=== PATIENT | male | born 1960 | race Two or more races ===

== ENCOUNTER → 2020-10-20 10:44 | Outpatient (BNVA) | payer MEDICARE, MEDICAID, SELFPAY | PROVIDERS: PCP Emergency Medicine; Visit Provider Internal Medicine | DX: I25.10 Atherosclerotic heart disease of native coronary artery without angina pectoris (principal); E11.8 Type 2 diabetes mellitus with unspecified complications; E78.5 Hyperlipidemia, unspecified | CPT/HCPCS: 93005; 99212 ==

== ENCOUNTER 2020-12-01 08:37 | Outpatient (REF) | payer MEDICARE, MEDICAID, SELFPAY ==
[2020-12-01 09:54] LABS: Glucose Urine UA NEG (NEG); Leukocyte Esterase Urine NEG (NEG); Nitrite Urine NEG (NEG); PH 5.5 (5.0-8.0); Specific Gravity - Urine >= 1.030 (1.005-1.025); Urine Blood TRACE (NEG); Urine Ketones NEG (NEG); Urine Protein NEG (NEG-TRACE)
[2020-12-01 09:56] LABS: Appearance Urine CLEAR; Color Urine YELLOW
[2020-12-01 10:08] LABS: RBC Urine 0-2 /HPF (0); WBC Urine 0-2 /HPF (0-4)
[2020-12-01 10:20] LABS: Anion Gap 12 (12-20); Blood Urea Nitrogen 16 mg/dL (9-16); Calcium 9.4 mg/dL (8.4-10.2); Carbon Dioxide 30 mmol/L (22-29); Chloride 103 mmol/L (96-108); Estimated Glomerular Filt Rate > 60; Potassium 4.4 mmol/L (3.3-5.1); Sodium 141 mmol/L (135-145)
[2020-12-01 10:45] LABS: Creatinine Urine 166.85 mg/dL; Microalbum/Creatinine Ratio Ur 26.9 ug/mg cr; Protein/Creatinine Ratio, Ur 0.07 (<0.2); Total Protein Urine Random 11 mg/dL (<12)
[2020-12-01 10:48] LABS: Vitamin D 25-OH Total 19.1 ng/mL (>30)
[2020-12-01 10:54] LABS: Estimated Average Glucose 157 mg/dL; Hemoglobin A1c % 7.1 %
[2020-12-01 18:50] LABS: Alanine Aminotransferase 73 U/L (0-40); Albumin Level 4.8 g/dL (3.5-5.0); Alkaline Phosphatase 64 U/L (39-117); Aspartate Amino Transferase 51 U/L (5-37); Bilirubin Direct 0.2 mg/dL (0.0-0.5); Bilirubin Total 0.6 mg/dL (0.0-1.0); Cholesterol 209 mg/dL; HDL Cholesterol 54 mg/dL; LDL Cholesterol Calculated 142 mg/dl; Triglycerides 69 mg/dL
[2020-12-02 18:21] LABS: Calcium (PTHI) 9.9 mg/dL (8.6-10.3); PTHI 44 pg/mL (14-64)
== END 2020-12-01 08:38 | disposition home or self-care (01) ==
LOC: HO.LAB 08:37
PROVIDERS: Absent Provider Internal Medicine Nephrology; PCP Emergency Medicine; Visit Provider Internal Medicine
DX: I25.10 Atherosclerotic heart disease of native coronary artery without angina pectoris (principal)
CPT/HCPCS: 36415; 80051; 80061; 80076; 81001; 82043; 82306; 82310; 82565; 83036; 83970; 84156; 84520

== ENCOUNTER 2021-01-06 14:28 | Emergency (ER) | payer MEDICARE, MEDICAID, SELFPAY ==
--- NOTE | ~2021-01-06 | XR_ITS ---
EXAMINATION: XR FOOT, LEFT CLINICAL INFORMATION: Plantar ulcer. Evaluate for osteomyelitis. COMPARISON: Previous x-ray December 2017 TECHNIQUE: AP, lateral, and oblique views of the left foot. FINDINGS: No fracture, dislocation or x-ray evidence of osteomyelitis is seen. There is mild hallux valgus deformity and degenerative change at the first MTP joint. There are degenerative changes of the IP joint of the of the great toe and in the midfoot. There are calcaneal spurs. There is soft tissue calcification or ossification the plantar fascia questionable for evidence of plantar fasciitis. There is soft tissue arterial calcification. No abnormal air collection or foreign body is seen in the soft tissues. XR/XR foot LT min 3V IMPRESSION: No x-ray evidence of osteomyelitis. Degenerative changes. Calcaneal spurs and question plantar fasciitis.
[2021-01-06 15:28] VITALS: BP 138/68; PULSE 88; RESP 18; TEMP 36.8; O2SAT 97; BMI 51.4
--- NOTE | 2021-01-06 16:18 | ED_ITS ---
HPI - Extremity Problem General Chief complaint: Wound/Laceration Stated complaint: lt ft wound Time Seen by Provider: 01/06/21 15:44 History of Present Illness HPI Narrative: Patient presents for noticing a small ulcer on the bottom of his left foot, just noticed it yesterday is not sure how long it has been there does not recall any injury, no fever no chills no pain, he is a diabetic Related Data Home Medications Medication Instructions Recorded Confirmed furosemide 40 mg tablet 40 mg PO DAILY tab 10/20/20 10/20/20 insulin glargine 100 unit/mL (3 unit SUBCUT 10/20/20 10/20/20 mL) subcutaneous pen isosorbide mononitrate 30 mg 30 mg PO DAILY tab 10/20/20 10/20/20 tablet,extended release 24 hr metformin 500 mg tablet,extended 1,000 mg PO BID tab 10/20/20 10/20/20 release 24 hr metoprolol succinate 50 mg 50 mg PO DAILY tab 10/20/20 10/20/20 tablet,extended release 24 hr Previous Rx's Medication Instructions Recorded atorvastatin 80 mg tablet 80 mg PO DAILY #90 tab 11/22/20 doxycycline hyclate 100 mg PO BID 7 Days #14 cap 01/06/21 doxycycline monohydrate 100 mg PO BID 7 Days #14 tab 01/06/21 Allergies Allergy/AdvReac Type Severity Reaction Status Date / Time piperacillin [From ZOSYN] Allergy Mild RASH Verified 01/06/21 15:32 tazobactam [From ZOSYN] Allergy Mild RASH Verified 01/06/21 15:32 Review of Systems Review of Systems: Positive for left wound wound negatives are no fever no chills no dizziness no weakness no headache no neck pain no chest pain or shortness of breath no joint pains PMFSH Past Medical History Source: nursing notes reviewed Medical History (Updated 01/07/21 @ 00:01 by Stacie Up) Atherosclerotic cardiovascular disease Other and unspecified hyperlipidemia Type 2 diabetes mellitus with unspecified complications Surgical History History of incision and drainage (~12/2017) Family History Family History (Updated 10/20/20 @ 11:01 by KATTY Romero) Father Liver disease Mother Heart attack Diabetes Sister Diabetes Kidney disease Social History Social History (Updated 10/20/20 @ 11:01 by KATTY Romero) Alcohol intake: former Smoking Status: Never smoker Advance Directives: No Advance Directives Information Provided: No Physical Exam Vital Signs: Vital Signs: Last Vital Signs Temp 98.2 F 01/06/21 15:28 Pulse 88 01/06/21 15:28 Resp 18 01/06/21 15:28 BP 138/68 01/06/21 15:28 Pulse Ox 97 01/06/21 15:28 Body Mass Index 51.4 General appearance no acute distress Neck is supple Respiratory no distress Extremities full range of motion x4 Skin exam on the plantar surface of the left foot there is a quarter-sized area of redness and scabbing without surrounding erythema, it is not tender to the touch there is no discharges no lymphangitis there is no surrounding cellulitis Course Course Course Narrative: X-ray did not show any gas or evidence of osteomyelitis, patient is started on antibiotic and will follow with Wound Clinic and return any time if worse Discharge Plan Discharge Clinical Impression: Foot ulcer, left Patient Disposition: Home, Self-Care Additional Instructions: We started an antibiotic for the left foot ulcer Most important is wound care so follow closely with wound clinic Return to ER any time for spreading redness, worse pain and swelling, fever, any sign of worsening infection or any concerns Prescriptions: New doxycycline hyclate 100 mg capsule 100 mg PO BID 7 Days Qty: 14 RF: 0 doxycycline monohydrate 100 mg tablet 100 mg PO BID 7 Days Qty: 14 RF: 0 No Action atorvastatin 80 mg tablet 80 mg PO DAILY Qty: 90 RF: 1 Lantus Solostar U-100 Insulin 100 unit/mL (3 mL) insulin pen subcut RF: 0 Referrals: Lilly Davalos PA [Physician Compliance Review Specialist] - 2 days Interventions: ED Discharge Assessment Last Done: 01/06/21 16:35 Discharge Date/Time: 01/06/21 16:35
== END 2021-01-06 16:35 | disposition home or self-care (01) ==
PROVIDERS: Emergency Provider Emergency Medicine; PCP Emergency Medicine
DX: L97.429 Non-pressure chronic ulcer of left heel and midfoot with unspecified severity (principal); E11.9 Type 2 diabetes mellitus without complications; Z79.4 Long term (current) use of insulin
CPT/HCPCS: 73630; 99283

== ENCOUNTER 2021-02-06 18:40 | Emergency (ER) | payer MEDICARE, MEDICAID, SELFPAY ==
--- NOTE | ~2021-02-06 | XR_ITS ---
EXAMINATION: XR FOOT, LEFT CLINICAL INFORMATION: Foot ulcer with question of osteomyelitis. COMPARISON: Foot radiographs 01/06/2021. TECHNIQUE: AP, lateral, and oblique views of the left foot. FINDINGS: Again seen are degenerative changes at interphalangeal joints, to a lesser extent, the metatarsophalangeal joints. No fractures or dislocations are seen. No bony destruction is identified to suggest osteomyelitis. Again seen are arterial calcifications and calcaneal spurs. Linear calcification is seen in the plantar fascia, unchanged when compared to the prior study. XR/XR foot LT 2V IMPRESSION: No evidence of osteomyelitis. Exam unchanged when compared to the prior study from one month ago.
[2021-02-06 19:57] VITALS: BP 145/72; PULSE 71; RESP 14; TEMP 36.2; O2SAT 97
[2021-02-06 20:09] LABS: MANUAL DIFF FLAG NO
[2021-02-06 20:10] LABS: Basophils Percent Auto 0.5 % (0-2); Eosinophils Absolute Auto 0.1 X10*3/uL (0.0-0.4); Eosinophils Percent Auto 2.6 % (0-4); Hematocrit 40.9 % (42-52); Hemoglobin 13.2 g/dl (14.0-18.0); Imm Gran Abs Auto 0.01 X10*3/uL (0.00-0.03); Imm Gran Pct Auto 0.3 % (0.0-0.4); Lymphocytes Absolute Auto 0.9 X10*3/uL (1.2-4.9); Lymphocytes Percent Auto 22.7 % (20-40); Mean Corpuscular HGB Conc 32.3 g/dl (31.0-36.0); Mean Corpuscular Hemoglobin 28.5 pg (27.0-33.0); Mean Corpuscular Volume 88.3 fL (80-98); Monocytes Absolute Auto 0.3 X10*3/uL (0.1-1.2); Monocytes Percent Auto 8.7 % (2-11); Neutrophils Absolute Auto 2.6 X10*3/uL (2.0-8.3); Neutrophils Percent Auto 65.2 % (45-73); Platelet Count 175 X10*3/uL (160-400); Red Blood Count 4.63 X10*6/uL (4.60-5.80); Red Cell Distribution Width 12.1 % (11.0-16.0); White Blood Count 3.9 X10*3/uL (4.8-10.8)
[2021-02-06 20:22] VITALS: BP 144/75; PULSE 61; RESP 16; TEMP 36.3; O2SAT 97; BMI 23.6
[2021-02-06 20:34] LABS: Alanine Aminotransferase 18 U/L (0-40); Albumin Level 4.5 g/dL (3.5-5.0); Alkaline Phosphatase 69 U/L (39-117); Anion Gap 12 (12-20); Aspartate Amino Transferase 20 U/L (5-37); Bilirubin Total 0.7 mg/dL (0.0-1.0); Blood Urea Nitrogen 18 mg/dL (9-16); Calcium 9.9 mg/dL (8.4-10.2); Carbon Dioxide 28 mmol/L (22-29); Chloride 103 mmol/L (96-108); Creatinine Clr Calc Pharmacy 67.3; Estimated Glomerular Filt Rate 57; Glucose Random 212 mg/dL (60-115); Potassium 4.7 mmol/L (3.3-5.1); Sodium 138 mmol/L (135-145); Total Protein 7.7 g/dL (6.5-8.0)
--- NOTE | 2021-02-06 21:53 | ED_ITS ---
HPI - Skin/Abscess/Foreign Bdy General Chief complaint: Skin/Abscess/Foreign Body Stated complaint: ulcer Time Seen by Provider: 02/06/21 21:24 Source: patient and retail account executive Mode of arrival: ambulatory History of Present Illness HPI narrative: This is a 60-year-old male with history of diabetes in presents with 2 days after noticing an ulcer at the base of his left great toe without associated fevers, chills, shortness of breath, chest pain/palpitations, GI or symptoms. Patient has had previous problem at the same site on his right foot approximately 2 months ago. Related Data Allergies Allergy/AdvReac Type Severity Reaction Status Date / Time No Known Allergies Allergy Verified 02/06/21 21:56 Review of Systems Review of Systems: Pertinent positives and negatives as stated in HPI 10 point review of systems is otherwise negative. PMFSH Past Medical History Source: nursing notes reviewed Medical History Diabetes High cholesterol HTN (hypertension) Social History Social History Advance Directives: No Advance Directives Information Provided: No Physical Exam Vital Signs: Vital Signs: Last Vital Signs Temp 97.4 F 02/06/21 20:22 Pulse 61 02/06/21 20:22 Resp 16 02/06/21 20:22 BP 144/75 H 02/06/21 20:22 Pulse Ox 97 02/06/21 20:22 Body Mass Index 23.6 VITAL SIGNS: Reviewed. GENERAL: Well developed, well nourished, in no acute distress. HEAD: Normocephalic/atraumatic EYES: PERRLA, EOMI OROPHARYNX: no oral lesions noted, posterior pharynx clear NECK: Supple, no adenopathy LUNGS: Normal breath sounds. No adventitious sounds or accessory muscle use. SpO2<97> CARDIOVASCULAR: Regular rate and rhythm without noted murmurs ABDOMEN: Soft, non-tender, non-distended with bowel sounds. LEFT FOOT: ulcer noted at the left MTP without surrounding erythema/induration and no evidence of discharge NEUROLOGIC: Alert and oriented x 4. Course Course Course Narrative: 60-year-old male with history and clinical presentation consistent with mal perforans ulcer at the left MTP. Review of all investigations negative for acute findings from baseline all results discussed with patient at bedside and he was provided with a wound clinic referral and instructed to call 1st thing in the morning. MDM - Skin/Abscess/Foreign Bdy Lab Data Result diagrams: 02/06/21 20:04 02/06/21 20:04 Labs: Lab Results 02/06/21 02/06/21 02/06/21 Range/Units 20:04 20:04 20:04 WBC 3.9 L (4.8-10.8) X10*3/uL RBC 4.63 (4.60-5.80) X10*6/uL Hgb 13.2 L (14.0-18.0) g/dl Hct 40.9 L (42-52) % MCV 88.3 (80-98) fL MCH 28.5 (27.0-33.0) pg MCHC 32.3 (31.0-36.0) g/dl RDW 12.1 (11.0-16.0) % Plt Count 175 (160-400) X10*3/uL MPV 10.0 (9.4-12.4) fL Immature Gran % (Auto) 0.3 (0.0-0.4) % Neut % (Auto) 65.2 (45-73) % Lymph % (Auto) 22.7 (20-40) % [place] % (Auto) 8.7 (2-11) % Eos % (Auto) 2.6 (0-4) % Baso % (Auto) 0.5 (0-2) % Lymph # (Auto) 0.9 L (1.2-4.9) X10*3/uL [place] # (Auto) 0.3 (0.1-1.2) X10*3/uL Eos # (Auto) 0.1 (0.0-0.4) X10*3/uL Baso # (Auto) 0.0 (0.0-0.2) X10*3/uL Abs Immat Gran (auto) 0.01 (0.00-0.03) X10*3/uL Absolute Neuts (auto) 2.6 (2.0-8.3) X10*3/uL Absolute Nucleated RBC 0.000 (0.0-0.012) X10*3/uL Nucleated RBC % (auto) 0.0 (0.0-0.2) /100WBC Hold Purple Top SEE NOTE Sodium 138 (135-145) mmol/L Potassium 4.7 (3.3-5.1) mmol/L Chloride 103 (96-108) mmol/L Carbon Dioxide 28 (22-29) mmol/L Anion Gap 12 (12-20) BUN 18 H (9-16) mg/dL Creatinine 1.28 (0.5-1.4) mg/dL Estim Creat Clear Calc 67.3 Estimated GFR 57 Random Glucose 212 H (60-115) mg/dL Calcium 9.9 (8.4-10.2) mg/dL Total Bilirubin 0.7 (0.0-1.0) mg/dL AST 20 (5-37) U/L ALT 18 (0-40) U/L Alkaline Phosphatase 69 (39-117) U/L Total Protein 7.7 (6.5-8.0) g/dL Albumin 4.5 (3.5-5.0) g/dL Discharge Plan Discharge Clinical Impression: Diabetic foot ulcer Patient Disposition: Home, Self-Care Instructions: Foot Care for People with Diabetes (ED), Diabetic Foot Ulcers (ED) Additional Instructions: 1. Reanude todos los medicamentos caseros seg?n lo prescrito. 2. Etta un seguimiento con mccain proveedor de atenci?n primaria llamando al consultorio por la ma?ted y estableciendo christopher cecy para christopher reevaluaci?n. 3. Se le garcia proporcionado christopher derivaci?n a la cl?viola de heridas y debe llamarlos por la ma?ted. Regrese a la vivian de emergencias por un empeoramiento roberto de los s?ntomas. Referrals: Wound Care [facility] [Outside] - 2 days (Please evaluate and manage diabetic foot ulcer to the left MTP (mal perforan) with x-ray negative for evidence of OM.) [facility] [Primary Care Provider] - 2 days Print Language: Japanese
== END 2021-02-06 23:12 | disposition home or self-care (01) ==
PROVIDERS: Emergency Provider Student in an Organized Health Care Education/Training Program
DX: E11.621 Type 2 diabetes mellitus with foot ulcer (principal); L97.529 Non-pressure chronic ulcer of other part of left foot with unspecified severity; I10 Essential (primary) hypertension
CPT/HCPCS: 36415; 73620; 80053; 85025; 99283

== ENCOUNTER 2021-02-10 08:43 | Outpatient (RCR) | payer MEDICARE, MEDICAID, SELFPAY | END 2021-03-02 08:00 | disposition home or self-care (01) | LOC: HO.WCC 08:43 | PROVIDERS: Visit Provider Physician Assistant | DX: E11.621 Type 2 diabetes mellitus with foot ulcer (principal); L97.529 Non-pressure chronic ulcer of other part of left foot with unspecified severity; L84 Corns and callosities; I87.2 Venous insufficiency (chronic) (peripheral); E11.40 Type 2 diabetes mellitus with diabetic neuropathy, unspecified; I10 Essential (primary) hypertension; Z79.2 Long term (current) use of antibiotics | CPT/HCPCS: 99212 ==

== ENCOUNTER 2021-04-10 10:30 | Outpatient (REF) | payer MEDICARE, MEDICAID, SELFPAY ==
[2021-04-10 11:15] LABS: Alanine Aminotransferase 16 U/L (0-40); Albumin Level 4.6 g/dL (3.5-5.0); Alkaline Phosphatase 57 U/L (39-117); Aspartate Amino Transferase 21 U/L (5-37); Bilirubin Direct 0.2 mg/dL (0.0-0.5); Bilirubin Total 0.3 mg/dL (0.0-1.0); Total Protein 7.8 g/dL (6.5-8.0)
== END 2021-04-10 10:31 | disposition home or self-care (01) ==
LOC: HO.LAB 10:30
PROVIDERS: Visit Provider Internal Medicine
DX: I25.10 Atherosclerotic heart disease of native coronary artery without angina pectoris (principal)
CPT/HCPCS: 36415; 80076

== ENCOUNTER 2021-09-22 10:00 | Outpatient (RCR) | payer MEDICARE, MEDICAID, SELFPAY ==
[2021-09-19 15:16] LABS: MANUAL DIFF FLAG NO
[2021-09-19 15:37] LABS: Basophils Percent Auto 0.4 % (0-2); Eosinophils Absolute Auto 0.1 X10*3/uL (0.0-0.4); Eosinophils Percent Auto 2.2 % (0-4); Hematocrit 43.1 % (42.0-52.0); Imm Gran Abs Auto 0.02 X10*3/uL (0.00-0.03); Imm Gran Pct Auto 0.4 % (0.0-0.4); Lymphocytes Absolute Auto 0.9 X10*3/uL (1.2-4.9); Lymphocytes Percent Auto 20.3 % (20-40); Mean Corpuscular HGB Conc 32.5 g/dl (31.0-36.0); Mean Corpuscular Hemoglobin 28.4 pg (27.0-33.0); Mean Corpuscular Volume 87.4 fL (80.0-98.0); Mean Platelet Volume 9.7 fL (9.4-12.4); Monocytes Absolute Auto 0.3 X10*3/uL (0.1-1.2); Monocytes Percent Auto 7.4 % (2-11); Neutrophils Absolute Auto 3.1 x10*3/uL (2.0-8.3); Neutrophils Percent Auto 69.3 % (45-73); Platelet Count 208 X10*3/uL (160-400); Red Blood Count 4.93 X10*6/uL (4.60-5.80); Red Cell Distribution Width 11.7 % (11.0-16.0); White Blood Count 4.5 X10*3/uL (4.8-10.8)
[2021-09-19 15:50] LABS: Estimated Average Glucose 217 mg/dL; Hemoglobin A1c % 9.2 %
[2021-09-19 16:06] LABS: Anion Gap 11 (12-20); Blood Urea Nitrogen 20 mg/dL (9-16); C Reactive Protein 0.05 mg/dL (< or = 0.50); Calcium 10.7 mg/dL (8.4-10.2); Carbon Dioxide 32 mmol/L (22-29); Chloride 102 mmol/L (96-108); Estimated Glomerular Filt Rate 50; Glucose Random 225 mg/dL (60-115); Potassium 4.5 mmol/L (3.3-5.1); Sodium 140 mmol/L (135-145)
[2021-09-19 16:43] LABS: Erythrocyte Sedimentation Rate 10 MM/HR (0-15)
--- NOTE | ~2021-09-22 | XR_ITS ---
EXAMINATION: XR FOOT, LEFT CLINICAL INFORMATION: Wound of the first metatarsal head COMPARISON: 02/06/2021 TECHNIQUE: 3 views of the left foot. FINDINGS: No interval development of osseous erosion or periostitis. No radiographic findings of osteomyelitis. Again noted are enthesophytes of the calcaneus and small osteophytes at scattered joints of the foot. Peripheral vessels are calcified. XR/XR foot LT min 3V IMPRESSION: No acute abnormality in the left foot compared to 02/06/2021. No evidence of osteomyelitis.
== END 2021-10-04 15:05 | disposition home or self-care (01) ==
LOC: HO.WCC 10:00
PROVIDERS: PCP Internal Medicine; Visit Provider Physician Assistant
DX: E11.621 Type 2 diabetes mellitus with foot ulcer (principal); L97.521 Non-pressure chronic ulcer of other part of left foot limited to breakdown of skin; E11.40 Type 2 diabetes mellitus with diabetic neuropathy, unspecified; I10 Essential (primary) hypertension
CPT/HCPCS: 36415; 73630; 80048; 83036; 84134; 85025; 85652; 86140; 97597; 99212

== ENCOUNTER → 2022-01-31 08:45 | Outpatient (BNVA) | payer MEDICARE, MEDICAID, SELFPAY | PROVIDERS: PCP Nurse Practitioner Family; Referring Provider Nurse Practitioner Family; Visit Provider Internal Medicine | DX: I25.10 Atherosclerotic heart disease of native coronary artery without angina pectoris (principal); E11.8 Type 2 diabetes mellitus with unspecified complications; E78.5 Hyperlipidemia, unspecified; Z79.84 Long term (current) use of oral hypoglycemic drugs; Z79.4 Long term (current) use of insulin | CPT/HCPCS: 93005; 99212 ==

== ENCOUNTER 2022-03-31 15:17 | Inpatient (IN) | payer MEDICARE, MEDICAID, SELFPAY ==
--- NOTE | ~2022-03-31 | US_ITS ---
EXAMINATION: US arterial duplex LE RT CLINICAL INFORMATION: Reason for Exam pt c right leg swelling/redness ? dvt or arterial COMPARISON: None. TECHNIQUE: Dynamic, real-time grayscale and color Doppler sonographic evaluation of the right lower extremity was performed with spectral analysis FINDINGS: RIGHT (PSV/Waveform): CAMP MAINTENANCE SUPERVISOR: 117 cm/s, triphasic * PFA: 162 cm/s, biphasic. * Proximal SFA: 120 cm/s, triphasic. * Mid SFA: 112 cm/s, triphasic. * Distal SFA: 116cm/s, triphasic * Popliteal: 105 cm/s, triphasic * OUTBOARD MOTOR ASSEMBLER: 61cm/s, triphasic * US/US arterial duplex LE RT IMPRESSION: No hemodynamically significant stenosis within the right lower extremity arterial vasculature.
--- NOTE | ~2022-03-31 | US_ITS ---
EXAMINATION: US VENOUS ULTRASOUND WITH DOPPLER LOWER EXTREMITY, RIGHT CLINICAL INFORMATION: Swelling COMPARISON: None TECHNIQUE: Ultrasound of the deep veins is performed from the hip to the calf with compression sonography and color and pulse Doppler assessment. Spectral analysis with color-flow imaging is performed. FINDINGS: There is normal venous compression and respiratory variation and augmented flow. The visualized common femoral vein, superficial femoral vein, profunda femoral vein, popliteal vein, and the trifurcation region shows no evidence of deep venous thrombosis. There is no significant popliteal fossa cyst. If the patient's symptoms persist, followup ultrasound in 5 days 7 days might be of value to exclude proximal propagation from a non-visualized calf vein. US/US venous duplex LE RT IMPRESSION: No DVT demonstrated in the right lower extremity.
--- NOTE | ~2022-03-31 | XR_ITS ---
EXAMINATION: XR FOOT, RIGHT CLINICAL INFORMATION: Right great toe pain and swelling. Question abscess or osteomyelitis COMPARISON: Right foot radiographs 04/25/2020 TECHNIQUE: AP, lateral, and oblique views of the right foot. FINDINGS: Suspected mild interval erosive change at the tip/tuft of the great toe distal phalanx. Overlying masslike soft tissue swelling and a small bubble of soft tissue gas. No additional osseous destructive change. Mild degenerative changes at the great toe IP joint and first MTP joints with mild joint space narrowing small osteophytes noted. Calcaneal spurs and vascular calcifications also seen. XR/XR foot RT min 3V IMPRESSION: 1. Mild interval erosive change of the tuft of the great toe distal phalanx suspicious for small volume acute osteomyelitis. 2. Masslike soft tissue swelling overlying the distal great toe with a small bubble of soft tissue gas. Cannot exclude abscess. Consider forefoot MRI for assessment.
--- NOTE | 2022-03-31 15:33 | PC.NURSE ---
unable to get fitness sales consultant via phone, will continue to try and get ahold of them.
[2022-03-31 15:53] VITALS: BP 150/73; PULSE 97; RESP 16; TEMP 36.7; O2SAT 97; BMI 23.3
[2022-03-31 19:32] LABS: MANUAL DIFF FLAG NO
[2022-03-31 19:34] LABS: Basophils Percent Auto 0.2 % (0-2); Eosinophils Absolute Auto 0.1 X10*3/uL (0.0-0.4); Eosinophils Percent Auto 1.9 % (0-4); Hemoglobin 13.9 g/dl (14.0-18.0); Imm Gran Abs Auto 0.02 X10*3/uL (0.00-0.03); Imm Gran Pct Auto 0.3 % (0.0-0.4); Lymphocytes Absolute Auto 0.9 X10*3/uL (1.2-4.9); Lymphocytes Percent Auto 16.1 % (20-40); Mean Corpuscular HGB Conc 32.3 g/dl (31.0-36.0); Mean Corpuscular Volume 86.5 fL (80.0-98.0); Mean Platelet Volume 9.5 fL (9.4-12.4); Monocytes Absolute Auto 0.5 X10*3/uL (0.1-1.2); Monocytes Percent Auto 8.8 % (2-11); Neutrophils Absolute Auto 4.2 x10*3/uL (2.0-8.3); Neutrophils Percent Auto 72.7 % (45-73); Platelet Count 207 X10*3/uL (160-400); Red Blood Count 4.97 X10*6/uL (4.60-5.80); Red Cell Distribution Width 12.1 % (11.0-16.0); White Blood Count 5.8 X10*3/uL (4.8-10.8)
[2022-03-31 19:39] LABS: INTERNATIONAL NORM RATIO 1.1 (0.9-1.1); Prothrombin Time 12.6 SEC (10.0-13.1)
--- NOTE | 2022-03-31 19:43 | ED_ITS ---
HPI - Skin/Abscess/Foreign Bdy General Chief complaint: General Medical Stated complaint: Cyst on toe Time Seen by Provider: 03/31/22 17:23 Source: patient Mode of arrival: ambulatory Limitations: language barrier (Senegalese-speaking) History of Present Illness HPI narrative: 61-year-old male presenting to the ED with complaints of possible abscess to his right great toe that he noticed since last night. Patient has a past medical history of coronary artery disease, hypertension, hyperlipidemia, diabetes type 2. Patient reports on March 16 he was seen at [facility] and was diagnosed with a great toe ingrown nail infection was placed on Keflex reports his symptoms completely resolved although since last night he has been having worsening pain/swelling and redness to his right great toe that is now spreading into his foot. Denies any fevers, chills, dizziness, headaches, neck pain/stiffness, trouble swallowing or breathing, chest pain or shortness of breath, dyspnea on exertion, orthopnea, palpitation, paresthesias, nausea/vomiting/diarrhea constipation, black or bloody stools, abdominal pain, back pain, dysuria, hematuria, recent falls or trauma, recent injuries to the foot or toes that he is aware of, paresthesias, lower extremity edema or calf tenderness or any other symptoms complaints or concerns at this time. MD complaint: abscess/boil Onset (ago): day(s) (2) Location: R foot (Great toe) Severity: moderate Quality: aching Pain Consistency: constant Relieving factors: none Exacerbating factors: palpation, movement and other (walking) Context: other (See above) Associated symptoms: denies other symptoms Treatments prior to arrival: other (See above) Related Data Home Medications Medication Instructions Recorded Confirmed furosemide 40 mg tablet 40 mg PO DAILY 10/20/20 03/22/22 insulin glargine 100 unit/mL (3 100 unit subcut DAILY 10/20/20 03/22/22 mL) subcutaneous pen (Lantus Solostar U-100 Insulin) metformin 500 mg tablet,extended 1,000 mg PO BID 10/20/20 03/22/22 release 24 hr metoprolol succinate 50 mg 50 mg PO DAILY 10/20/20 03/22/22 tablet,extended release 24 hr cholecalciferol (vitamin D3) 50 1 cap PO QAM 12/20/21 03/22/22 mcg (2,000 unit) capsule aspirin 81 mg tablet,delayed 81 mg PO QAM 01/31/22 03/22/22 release empagliflozin 25 mg tablet 25 mg PO DAILY 01/31/22 03/22/22 (Jardiance) Previous Rx's Medication Instructions Recorded ezetimibe 10 mg tablet (Zetia) 10 mg PO DAILY 90 days #90 tabs 04/11/21 isosorbide mononitrate 30 mg 30 mg PO DAILY 90 days #90 tabs 12/25/21 tablet,extended release 24 hr atorvastatin 80 mg tablet 80 mg PO DAILY #90 tabs 03/19/22 Allergies Allergy/AdvReac Type Severity Reaction Status Date / Time piperacillin [From ZOSYN] Allergy Mild RASH Verified 03/31/22 15:53 tazobactam [From ZOSYN] Allergy Mild RASH Verified 03/31/22 15:53 Review of Systems Review of Systems: Constitutional : No Weight loss, No Fever, No Chills, No Night Sweats, No Fatigue, No Malaise ENT/Mouth : No Hearing loss, No Ear Pain, No Nasal Congestion, No Sinus Pain, No Hoarseness, No sore throat, No Rhinorrhea, No Swallowing Difficulty Eyes: No Eye Pain, No Swelling, No Redness, No Foreign Body, No Discharge, No Vision Changes Cardiovascular : No Chest Pain, No SOB, No Dyspnea on Exertion, No Orthopnea, No Edema, No Palpitations Respiratory : No Cough, No Sputum, No Wheezing, No Smoke Exposure, No Dyspnea Gastrointestinal : No Nausea, No Vomiting, No Diarrhea, No Constipation, No abdominal Pain, No Hematochezia, No Melena Genitourinary : no irregular bleeding, No Dysuria, No Urinary Frequency, No Hematuria, No Urinary Incontinence, No Urgency, No Flank Pain, No Urinary Flow Changes, No Hesitancy Musculoskeletal : No joint pain, No Myalgias, No Joint Swelling Skin : + abscess/erythema/pain to right great toe, No additional Skin Lesions, No rash Neuro : No Weakness, No Numbness, No Paresthesias, No Loss of Consciousness, No Dizziness, No Headache Psych : No Anxiety/Panic, No Depression, No SI/HI/AH/VH, No Social Issues, Heme/Lymph: No Bruising, No Bleeding,No Lymphadenopathy Endocrine : No Polyuria, No Polydipsia, No Temperature Intolerance Yes all other systems are reviewed and are negative [facility] Past Medical History Attestation statement: The following information was validated with the patient. Source: old records reviewed and nursing notes reviewed Medical History Atherosclerotic cardiovascular disease Diabetes High cholesterol HTN (hypertension) Other and unspecified hyperlipidemia Type 2 diabetes mellitus with unspecified complications Surgical History History of incision and drainage (~12/2017) Family History Family History Father Liver disease Mother Diabetes Heart attack Sister Diabetes Kidney disease Stomach cancer Social History Social History Household Members: None Housing: Apartment Are you a primary patient care secretary to a significant other at home: No Do you presently have visiting nurse or other home services: No Alcohol intake: former Patient Tobacco Use Status: Never used Tobacco Advance Directives: No Advance Directives Information Provided: No service: No Current occupational status: disabled Physical Exam Vital Signs: Vital Signs: Last Vital Signs Temp 98.0 F 03/31/22 15:53 Pulse 97 03/31/22 15:53 Resp 16 03/31/22 15:53 BP 150/73 H 03/31/22 15:53 Pulse Ox 97 03/31/22 15:53 O2 Del Method 03/31/22 15:53 BMI result Body Mass Index 23.3 vital signs have been reviewed as normal and appeared to be correct. Blood pressure normal. Heart rate normal. Respiration rate normal. Temperature normal. Oxygen saturation normal. Appearance: Alert. Oriented X3. No acute distress. Head: Normal external exam. Normocephalic. Atraumatic. Eyes: PERRLA. EOMI. Conjunctiva and sclera normal. Eyelids normal. ENT: Pharynx normal. Uvula midline. Moist mucous membranes. No lesions/ulcerations or masses noted on the tongue. Normal voice. No trismus noted. No drooling noted. No muffled voice noted. Neck: Normal inspection. Neck supple. FROM. No adenopathy. Thyroid Normal. No tracheal deviation noted. No crepitus is noted. No meningeal signs. CVS: Normal heart rate and rhythm. Heart sound normal. Pulses normal throughout. No murmurs/rales/gallops. Respiratory: No respiratory distress. Painless inspiration. Breath sounds normal. No wheezes/rales/rhonchi noted. Chest nontender. No crepitus is noted. No signs of trauma noted. No accessory muscle usage noted or decreased air movement noted. No signs of trauma. Abdomen: Soft and nontender. Bowel sounds normal in all 4 quadrants. No distention noted. No organomegaly noted. No visible injury noted. Back: Full range of motion noted. Skin: Skin warm and dry. Normal skin color. Normal skin turgor. Patient with erythema and moderate soft tissue swelling and warm to touch questioning some fluctuance to the right great toenail at the dorsal aspect spreading erythema/cellulitis to the dorsal aspect of the midfoot otherwise no streaking up the leg. No foreign bodies or drainage at this time. No additional rashes/lesions/lacerations noted. Extremities: No lower extremity edema. No calf tenderness is noted. Otherwise all other Extremities exhibit normal range of motion and nontender other than the right great toe/right foot. Neuro: Oriented X 3. No motor deficit. No sensory deficit. Reflexes normal. Normal steady gait. No focal neuro deficits noted. CN's II-XII intact bi laterally? Vascular: + radial pulses/+ 2 distal pedal pulses/+2 dorsalis pedis b/l. Normal cap refill. No cyanosis noted to upper extremity nails and lower extremity toes nails. Course Course Course Narrative: 17:45pm - 61-year-old male presenting to the ED with complaints of possible abscess to his right great toe that he noticed since last night. Patient reports on March 16 he was seen at [facility] and was diagnosed with a great toe ingrown nail infection was placed on Keflex reports his symptoms completely resolved although since last night he has been having worsening pain/swelling and redness to his right great toe that is now spreading into his foot. Patient has a past medical history of coronary artery disease, hypertension, hyperlipidemia, diabetes type 2. Plan: Will obtain an x-ray of right foot Trista venous duplex ultrasound of right lower extremity an arterial duplex ultrasound of right lower extremity and re- evaluate. Reevaluation(s) Reevaluation #1: - X-ray revealed mild interval erosive changes of the tuft of the great toe distal phalanx suspicious for small Volume acute osteomyelitis and noted to have small bubble of soft tissue gas cannot exclude abscess they recommended forefoot MRI for assessment. - therefore at this time infection is suspected and will obtain labs, blood cultures, lactic acid patient is allergic to Zosyn will provide 2 g of Rocephin and vancomycin along with IV fluids and re-evaluate. Patient will need to be admitted for osteomyelitis to Dr. Hernandez at this time. Patient understands agrees with this plan. Time: 19:00 MDM - Skin/Abscess/Foreign Bdy Medical Records Attestation: I reviewed the patient's medical records. Lab Data Attestation: I reviewed the patient's lab results. Result diagrams: 03/31/22 19:13 03/31/22 19:13 Labs: Lab Results 03/31/22 03/31/22 03/31/22 Range/Units 19:13 19:13 19:13 WBC 5.8 (4.8-10.8) X10*3/uL RBC 4.97 (4.60-5.80) X10*6/uL Hgb 13.9 L (14.0-18.0) g/dl Hct 43.0 (42.0-52.0) % MCV 86.5 (80.0-98.0) fL MCH 28.0 (27.0-33.0) pg MCHC 32.3 (31.0-36.0) g/dl RDW 12.1 (11.0-16.0) % Plt Count 207 (160-400) X10*3/uL MPV 9.5 (9.4-12.4) fL Immature Gran % (Auto) 0.3 (0.0-0.4) % Neut % (Auto) 72.7 (45-73) % Lymph % (Auto) 16.1 L (20-40) % [place] % (Auto) 8.8 (2-11) % Eos % (Auto) 1.9 (0-4) % Baso % (Auto) 0.2 (0-2) % Lymph # (Auto) 0.9 L (1.2-4.9) X10*3/uL [place] # (Auto) 0.5 (0.1-1.2) X10*3/uL Eos # (Auto) 0.1 (0.0-0.4) X10*3/uL Baso # (Auto) 0.0 (0.0-0.2) X10*3/uL Abs Immat Gran (auto) 0.02 (0.00-0.03) X10*3/uL Absolute Neuts (auto) 4.2 (2.0-8.3) x10*3/uL Absolute Nucleated RBC 0.000 (0.0-0.012) X10*3/uL Nucleated RBC % (auto) 0.0 (0.0-0.2) /100WBC PT 12.6 (10.0-13.1) SEC INR 1.1 (0.9-1.1) Sodium 141 (135-145) mmol/L Potassium 4.9 (3.3-5.1) mmol/L Chloride 102 (96-108) mmol/L Carbon Dioxide 26 (22-29) mmol/L Anion Gap 18 (12-20) BUN 17 H (9-16) mg/dL Creatinine 0.98 (0.5-1.4) mg/dL Estim Creat Clear Calc 86.8 Estimated GFR > 60 Random Glucose 101 D (60-115) mg/dL Lactic Acid (0.5-2.0) mmol/L Calcium 9.7 (8.4-10.2) mg/dL Magnesium 2.2 (1.6-2.6) mg/dL Total Bilirubin 0.4 (0.0-1.0) mg/dL AST 28 (5-37) U/L ALT 27 (0-40) U/L Alkaline Phosphatase 69 (39-117) U/L Total Protein 8.7 H (6.5-8.0) g/dL Albumin 4.7 (3.5-5.0) g/dL 03/31/22 Range/Units 19:13 WBC (4.8-10.8) X10*3/uL RBC (4.60-5.80) X10*6/uL Hgb (14.0-18.0) g/dl Hct (42.0-52.0) % MCV (80.0-98.0) fL MCH (27.0-33.0) pg MCHC (31.0-36.0) g/dl RDW (11.0-16.0) % Plt Count (160-400) X10*3/uL MPV (9.4-12.4) fL Immature Gran % (Auto) (0.0-0.4) % Neut % (Auto) (45-73) % Lymph % (Auto) (20-40) % [place] % (Auto) (2-11) % Eos % (Auto) (0-4) % Baso % (Auto) (0-2) % Lymph # (Auto) (1.2-4.9) X10*3/uL [place] # (Auto) (0.1-1.2) X10*3/uL Eos # (Auto) (0.0-0.4) X10*3/uL Baso # (Auto) (0.0-0.2) X10*3/uL Abs Immat Gran (auto) (0.00-0.03) X10*3/uL Absolute Neuts (auto) (2.0-8.3) x10*3/uL Absolute Nucleated RBC (0.0-0.012) X10*3/uL Nucleated RBC % (auto) (0.0-0.2) /100WBC PT (10.0-13.1) SEC INR (0.9-1.1) Sodium (135-145) mmol/L Potassium (3.3-5.1) mmol/L Chloride (96-108) mmol/L Carbon Dioxide (22-29) mmol/L Anion Gap (12-20) BUN (9-16) mg/dL Creatinine (0.5-1.4) mg/dL Estim Creat Clear Calc Estimated GFR Random Glucose (60-115) mg/dL Lactic Acid 0.8 (0.5-2.0) mmol/L Calcium (8.4-10.2) mg/dL Magnesium (1.6-2.6) mg/dL Total Bilirubin (0.0-1.0) mg/dL AST (5-37) U/L ALT (0-40) U/L Alkaline Phosphatase (39-117) U/L Total Protein (6.5-8.0) g/dL Albumin (3.5-5.0) g/dL Imaging Data right foot xray: Attestation: I personally reviewed and interpreted this imaging study as follows: Radiologist's impression: FINDINGS: Suspected mild interval erosive change at the tip/tuft of the great toe distal phalanx. Overlying masslike soft tissue swelling and a small bubble of soft tissue gas. No additional osseous destructive change. Mild degenerative changes at the great toe IP joint and first MTP joints with mild joint space narrowing small osteophytes noted. Calcaneal spurs and vascular calcifications also seen.? XR/XR foot RT min 3V IMPRESSION: ? 1. Mild interval erosive change of the tuft of the great toe distal phalanx suspicious for small volume acute osteomyelitis. 2. Masslike soft tissue swelling overlying the distal great toe with a small bubble of soft tissue gas. Cannot exclude abscess. Consider forefoot MRI for assessment. Critical Care Time Critical Care Time Critical Care Time: Yes Total Critical Care Time: 60 Attestation: I personally attest to this time spent taking care of the patient Discharge Plan Discharge Clinical Impression: Osteomyelitis of great toe of right foot Patient Disposition: Admitted As Inpatient
[2022-03-31 19:44] LABS: Lactic Acid 0.8 mmol/L (0.5-2.0)
[2022-03-31 19:49] LABS: Alanine Aminotransferase 27 U/L (0-40); Albumin Level 4.7 g/dL (3.5-5.0); Alkaline Phosphatase 69 U/L (39-117); Anion Gap 18 (12-20); Aspartate Amino Transferase 28 U/L (5-37); Bilirubin Total 0.4 mg/dL (0.0-1.0); Blood Urea Nitrogen 17 mg/dL (9-16); Calcium 9.7 mg/dL (8.4-10.2); Carbon Dioxide 26 mmol/L (22-29); Chloride 102 mmol/L (96-108); Creatinine Clr Calc Pharmacy 86.8; Estimated Glomerular Filt Rate > 60; Glucose Random 101 mg/dL (60-115); Magnesium 2.2 mg/dL (1.6-2.6); Potassium 4.9 mmol/L (3.3-5.1); Sodium 141 mmol/L (135-145); Total Protein 8.7 g/dL (6.5-8.0)
[2022-03-31] MEDS: cefTRIAXone sodium 2 GM in 0.9 % Sodium Chloride 50 ML IV (20:39)
[2022-03-31] MEDS: 0.9 % Sodium Chloride 1,000 ML 999 ML IVCONT (20:40)
--- NOTE | 2022-03-31 20:46 | P.HPHOSP_ITS ---
History of Present Illness Date of Service: 03/31/22 Chief Complaint: swollen toe Greenlandic-speaking only, history is obtained with the help of pedigree researcher 61-year-old male with past medical history of diabetes, hypertension, HLD presents the hospital with complaints of bright swollen big toe. Patient reports that he developed significant swelling, been a prior and he felt that his toe became like a balloon and squishy . Patient reports that he felt febrile, had chills, reports has chronic neuropathy therefore felt no pain, but he notice some warmth and mild erythema. Patient reports that on the 16 of March, he went to his primary care doctor, at that time his right big toe had also been slightly swollen, warm and had some drainage, therefore his PCP gave him a 7 day course of antibiotic cephalexin, with significant improvement. He he felt that this infection has gone away. He denies any chest pain, no shortness of breath, no headache or change in vision, no abdominal pain nausea or vomiting, no diarrhea or constipation, no urinary symptoms and no lower extremity edema On arrival to the ED patient hemodynamically stable with no significant abnormal vitals Labs are significant for WBC count of 5.8, hemoglobin of 13.9, hematocrit of 43 ESR of 34, CRP of 5.99, Foot x-ray shows mild interval erosive change of the tuft of the great toe distal phalanx suspicious for acute osteomyelitis, masslike soft tissue swelling overlying the distal great toe with a small bubble of soft tissue gas, cannot exclude abscess Patient started on IV antibiotics will be admitted for further management Review of Systems Review of Systems: Yes all other systems are reviewed and are negative [facility] Medical History Atherosclerotic cardiovascular disease Diabetes High cholesterol HTN (hypertension) Other and unspecified hyperlipidemia Type 2 diabetes mellitus with unspecified complications Family History Father Liver disease Mother Diabetes Heart attack Sister Diabetes Kidney disease Stomach cancer Surgical History History of incision and drainage (~12/2017) Social History Household Members: None Housing: Apartment Are you a primary health care marketing specialist to a significant other at home: No Do you presently have visiting nurse or other home services: No Alcohol intake: former Patient Tobacco Use Status: Never used Tobacco Use of substances other than those prescribed or required for medical reasons: No Have you been hit, kicked, punched, or otherwise hurt by someone within the past year? If so, by whom?: No Do you feel safe in your current relationship?: No Current Relationship Is there a partner from a previous relationship who is making you feel unsafe now?: No Are you made to feel afraid or neglected: No Advance Directives: No Advance Directives Information Provided: No Do you have thoughts of harming others: None Do you have a plan to hurt others: No Plan Recently lost weight without trying: No Eating poorly because of decreased appetite: No Nutrition Risks: No Nutritional Risk service: No Current occupational status: disabled Meds Allergies Allergy/AdvReac Type Severity Reaction Status Date / Time piperacillin [From ZOSYN] Allergy Mild RASH Verified 03/31/22 15:53 tazobactam [From ZOSYN] Allergy Mild RASH Verified 03/31/22 15:53 vancomycin Allergy Itching Verified 03/31/22 21:58 Active Medications: Current Medications Acetaminophen (Acetaminophen 325 Mg Tablet) 650 mg PO Q6H PRN PRN Reason: Pain, Mild (Pain Scale 1-3) Enoxaparin Sodium (Enoxaparin Sodium 40 Mg/0.4 Ml Syringe) 40 mg SUBCUT Q24H [facility] [place] [place] Vancomycin HCl () 2,000 mg in 520 mls @ 260 mls/hr IV ONCE ONE Stop: 03/31/22 21:19 Vancomycin HCl 1,500 mg/ (Sodium Chloride) 500 mls @ 333.333 mls/hr IV Q12H [facility] [place] Pharmacy Consult (Consult Rx Vancomycin Dosing) 1 each MISCELLANE DAILY PRN PRN Reason: Consult order Sodium Chloride (0.9 % Sodium Chloride Flush 3 Ml Syringe) 3 ml IVFLUSH QSHIFT [facility] [place] [place] Home Medications Medication Instructions Recorded Confirmed Last Taken Type aspirin 81 mg tablet,delayed 1 tab PO QAM 03/31/22 03/31/22 Unknown History release atorvastatin 80 mg tablet 1 tab PO QAM 03/31/22 03/31/22 Unknown History cholecalciferol (vitamin D3) 50 1 cap PO QAM 03/31/22 03/31/22 Unknown History mcg (2,000 unit) capsule empagliflozin 25 mg tablet 1 tab 03/31/22 Unknown History (Jardiance) ezetimibe 10 mg tablet tab 03/31/22 Unknown History furosemide 40 mg tablet tab 03/31/22 Unknown History insulin glargine 100 unit/mL (3 26 unit subcut BEDTIME 03/31/22 03/31/22 Unknown History mL) subcutaneous pen (Lantus Solostar U-100 Insulin) isosorbide mononitrate 30 mg 1 tab PO QAM 03/31/22 03/31/22 Unknown History tablet,extended release 24 hr metformin 500 mg tablet,extended 2 tab PO 03/31/22 Unknown History release 24 hr metoprolol succinate 50 mg 1 tab PO QAM 03/31/22 03/31/22 Unknown History tablet,extended release 24 hr Physical Exam Vital Signs and Narrative: Vital Signs: Last Vital Signs Temp 98.0 F 03/31/22 15:53 Pulse 97 03/31/22 15:53 Resp 16 03/31/22 15:53 BP 150/73 H 03/31/22 15:53 Pulse Ox 97 03/31/22 15:53 O2 Del Method 03/31/22 15:53 BMI result Body Mass Index 23.3 Const: General: cooperative and no acute distress Orientatio n/consciousness: patient oriented x3 Eyes: General: appearance normal, both eyes and all related structures Resp: Effort & Inspection: normal respiratory effort Auscultation: clear to auscultation bilaterally Cardio: Rate: regular rate Rhythm: regular rhythm GI: Palpation (GI): Soft to palpation Auscultation: normal bowel sounds Skin: General skin exam: no rashes or lesions noted Neuro: General: patient oriented x3 Cognition (Neuro): normal cognition Extrem: Other: Right big toe edema, warmth, there is slight subcutaneous emphysema right at the dorsal aspect of the toe, no tenderness Results Labs CBC and Chem 7: 03/31/22 19:13 03/31/22 19:13 Labs: Laboratory Results - last 24 hr 03/31/22 03/31/22 03/31/22 19:13 19:13 19:13 MCV 86.5 MCH 28.0 MCHC 32.3 RDW 12.1 Plt Count 207 MPV 9.5 Immature Gran % (Auto) 0.3 Neut % (Auto) 72.7 Lymph % (Auto) 16.1 L [place] % (Auto) 8.8 Eos % (Auto) 1.9 Baso % (Auto) 0.2 Lymph # (Auto) 0.9 L [place] # (Auto) 0.5 Eos # (Auto) 0.1 Baso # (Auto) 0.0 Abs Immat Gran (auto) 0.02 Absolute Neuts (auto) 4.2 Absolute Nucleated RBC 0.000 Nucleated RBC % (auto) 0.0 PT 12.6 INR 1.1 Anion Gap 18 Estim Creat Clear Calc 86.8 Estimated GFR > 60 Random Glucose 101 D Lactic Acid Calcium 9.7 Magnesium 2.2 Total Bilirubin 0.4 AST 28 ALT 27 Alkaline Phosphatase 69 Total Protein 8.7 H Albumin 4.7 03/31/22 19:13 MCV MCH MCHC RDW Plt Count MPV Immature Gran % (Auto) Neut % (Auto) Lymph % (Auto) [place] % (Auto) Eos % (Auto) Baso % (Auto) Lymph # (Auto) [place] # (Auto) Eos # (Auto) Baso # (Auto) Abs Immat Gran (auto) Absolute Neuts (auto) Absolute Nucleated RBC Nucleated RBC % (auto) PT INR Anion Gap Estim Creat Clear Calc Estimated GFR Random Glucose Lactic Acid 0.8 Calcium Magnesium Total Bilirubin AST ALT Alkaline Phosphatase Total Protein Albumin Imaging Radiologist's Impressions: Impressions Foot X-Ray 03/31/22 18:20 IMPRESSION: 1. Mild interval erosive change of the tuft of the great toe distal phalanx suspicious for small volume acute osteomyelitis. 2. Masslike soft tissue swelling overlying the distal great toe with a small bubble of soft tissue gas. Cannot exclude abscess. Consider forefoot MRI for assessment. Assessment and Plan (1) Osteomyelitis of great toe of right foot: Status: Acute Plan 61-year-old male with past medical history of hypertension, diabetes, presents to the hospital with complaints of right toe swelling found to have possible osteomyelitis # right great toe osteomyelitis - has evidence of osteomyelitis on x-ray of the foot, with possible abscess - start broad-spectrum antibiotic - patient was started on vancomycin but developed significant itching, vancomycin was discontinued and started on doxycycline - will obtain MRI - general surgeon infectious Disease consulted # diabetes - low-dose sliding scale insulin, continue home insulin - diabetic diet # hypertension - stable - the only possible antihypertensive I seen his med list and metoprolol, will continue DVT prophylaxis: Lovenox Given the findings of osteomyelitis and need for further evaluation possible surgical intervention as well as pending cultures to gear appropriate antibiotics, patient will require minimum 2 night hospital stay for further management and monitoring Quality Stroke Does the patient have a stroke diagnosis?: No VTE Prior VTE?: No VTE Risk Level:: Medical - moderate - high VTE Device Contraindication: Treatment Not Indicated VTE Drug Contraindication: N/A - Med Ordered
--- NOTE | 2022-03-31 21:44 | PC.NURSE ---
hung pt vancomycin 2GM, pt called author into room, and stated that he was itchy. no visible rash, no SOB, or cyanosis. infusion stopped hospitalist notified via tiger text
[2022-03-31 21:52] LABS: C Reactive Protein 5.99 mg/dL (< or = 0.50)
[2022-03-31 22:14] LABS: Glucose, Whole Blood 127 mg/dL (60-115)
[2022-03-31 22:20] LABS: Erythrocyte Sedimentation Rate 34 MM/HR (0-15)
[2022-03-31] MEDS: Doxycycline Hyclate 100 MG in 0.9 % Sodium Chloride 250 ML 166.67 MG IV (22:43)
[2022-03-31 23:41] LABS: COVID-19 Test Negative (Negative)
--- NOTE | 2022-03-31 23:56 | PC.NURSE ---
Med Rec completed by this RN as previous RN failed to complete it. Med Rec difficult to obtain as pt is Syrian speaking only, no pharmacy district manager available, pt does not have a list of his medications with him.
[2022-04-01] VITALS (9 sets, daily range): BP systolic 104–144; BP diastolic 53–92; PULSE 51–99; RESP 16–18; TEMP 36–37.8; O2SAT 97–100
[2022-04-01] MEDS: Enoxaparin Sodium 40 MG/0.4 ML SYRINGE SUBCUT ×2 (00:11→21:55)
[2022-04-01] MEDS: cefEPime HCl 1 GM in 0.9 % Sodium Chloride 50 ML IV ×4 (00:12→21:56)
--- NOTE | 2022-04-01 01:24 | PC.NURSE ---
Report given to Kash, plan for transport to floor.
[2022-04-01 06:48] LABS: MANUAL DIFF FLAG NO
[2022-04-01 06:52] LABS: Basophils Percent Auto 0.3 % (0-2); Eosinophils Absolute Auto 0.1 X10*3/uL (0.0-0.4); Eosinophils Percent Auto 1.7 % (0-4); Hematocrit 39.6 % (42.0-52.0); Hemoglobin 12.7 g/dl (14.0-18.0); Imm Gran Abs Auto 0.01 X10*3/uL (0.00-0.03); Imm Gran Pct Auto 0.3 % (0.0-0.4); Lymphocytes Absolute Auto 0.6 X10*3/uL (1.2-4.9); Lymphocytes Percent Auto 17.6 % (20-40); Mean Corpuscular HGB Conc 32.1 g/dl (31.0-36.0); Mean Corpuscular Volume 87.4 fL (80.0-98.0); Mean Platelet Volume 9.7 fL (9.4-12.4); Monocytes Absolute Auto 0.4 X10*3/uL (0.1-1.2); Monocytes Percent Auto 11.4 % (2-11); Neutrophils Absolute Auto 2.4 x10*3/uL (2.0-8.3); Neutrophils Percent Auto 68.7 % (45-73); Platelet Count 171 X10*3/uL (160-400); Red Blood Count 4.53 X10*6/uL (4.60-5.80); Red Cell Distribution Width 11.9 % (11.0-16.0); White Blood Count 3.5 X10*3/uL (4.8-10.8)
[2022-04-01 07:27] LABS: Anion Gap 14 (12-20); Blood Urea Nitrogen 12 mg/dL (9-16); Carbon Dioxide 24 mmol/L (22-29); Chloride 106 mmol/L (96-108); Creatinine Clr Calc Pharmacy 103.8; Estimated Glomerular Filt Rate > 60; Glucose Random 109 mg/dL (60-115); Potassium 4.8 mmol/L (3.3-5.1); Sodium 139 mmol/L (135-145)
[2022-04-01 07:27] LABS: Glucose, Whole Blood 115 mg/dL (60-115)
--- NOTE | 2022-04-01 07:29 | PHA.MEDREC ---
Pharmacy Consult ? Medication Reconciliation Pharmacy has completed the medication reconciliation. Reviewed med rec done by Rosanna Ring, clarified some directions based on recent claim history.
[2022-04-01 07:33] LABS: Calcium 9.2 mg/dL (8.4-10.2)
[2022-04-01] MEDS: Isosorbide Mononitrate 30 MG TAB.ER.24H PO (08:29)
[2022-04-01] MEDS: Aspirin Enteric Coated 81 MG TABLET.DR PO (08:29)
[2022-04-01] MEDS: Atorvastatin Calcium 80 MG TABLET PO (08:29)
[2022-04-01] MEDS: Cholecalciferol (Vitamin D3) 25 MCG TABLET 50 MCG PO (08:29)
[2022-04-01] MEDS: Metoprolol Succinate ER 50 MG TAB.ER.24H PO (08:29)
[2022-04-01] MEDS: Doxycycline Hyclate 100 MG in 0.9 % Sodium Chloride 250 ML 166.67 MG IV ×2 (08:30→22:34)
[2022-04-01] MEDS: 0.9 % Sodium Chloride Flush 3 ML SYRINGE IVFLUSH ×3 (08:30→21:56)
--- NOTE | 2022-04-01 09:47 | P.CONGS_ITS ---
History of Present Illness Consult details Consult date: 04/01/22 Narrative: 61M with diabetes, admitted last night because of waht he describes as swelling on the tip of the right big toe. He says he has noticed this for about 2 days. He actually denies significant pain in the area. Informed consent given?: Yes Lesion description: The area of the big toe with the body fluid was prepped and draped. I then used a gauge 21 needle to aspirate the fluid. About 60 cc were aspirated. This was sent for cultures. I then applied dressings and wrapped the foot with Robin roll. He tolerated procedure well. There were no complications noted. Review of Systems Constitutional: Constitutional: Denies chills and Denies fever(s) Cardiovascular: Cardiovascular: Denies chest pain, Denies dyspnea and Denies dyspnea on exertion Respiratory: Respiratory: Denies cough, Denies dyspnea and Denies dyspnea on e xertion Gastrointestinal: Gastrointestinal: Denies hematochezia and Denies change in bowel habits Genitourinary: Genitourinary: Denies hematuria and Denies difficulty urinating Musculoskeletal: Musculoskeletal: Denies back pain and Denies limited range of motion Neurologic: Denies focal weakness and Denies convulsions Psychiatric: Psychiatric: Denies depression and Denies mood swings PMFSH Past Medical History Medical History Atherosclerotic cardiovascular disease Diabetes High cholesterol HTN (hypertension) Other and unspecified hyperlipidemia Type 2 diabetes mellitus with unspecified complications Family History Family History Father Liver disease Mother Diabetes Heart attack Sister Diabetes Kidney disease Stomach cancer Surgical History Surgical History History of incision and drainage (~12/2017) Social History Social History Household Members: None Housing: Apartment Are you a primary respiratory care specialist to a significant other at home: No Do you presently have visiting nurse or other home services: No Alcohol intake: former Patient Tobacco Use Status: Never used Tobacco Use of substances other than those prescribed or required for medical reasons: No Have you been hit, kicked, punched, or otherwise hurt by someone within the past year? If so, by whom?: No Do you feel safe in your current relationship?: No Current Relationship Is there a partner from a previous relationship who is making you feel unsafe now?: No Are you made to feel afraid or neglected: No Advance Directives: No Advance Directives Information Provided: No Do you have thoughts of harming others: None Do you have a plan to hurt others: No Plan Recently lost weight without trying: No Eating poorly because of decreased appetite: No Nutrition Risks: No Nutritional Risk service: No Current occupational status: disabled Meds Allergies Allergy/AdvReac Type Severity Reaction Status Date / Time piperacillin [From ZOSYN] Allergy Mild RASH Verified 03/31/22 15:53 tazobactam [From ZOSYN] Allergy Mild RASH Verified 03/31/22 15:53 vancomycin Allergy Itching Verified 03/31/22 21:58 Active Medications: Current Medications Acetaminophen (Acetaminophen 325 Mg Tablet) 650 mg PO Q6H PRN PRN Reason: Pain, Mild (Pain Scale 1-3) Aspirin (Aspirin Enteric Coated 81 Mg Tablet.Dr) 81 mg PO DAILY [facility] Last Admin: 04/01/22 08:29 Dose: 81 mg Atorvastatin Calcium (Atorvastatin Calcium 80 Mg Tablet) 80 mg PO DAILY [facility] Last Admin: 04/01/22 08:29 Dose: 80 mg Dextrose (Dextrose 50 % 25 Gm/50 Ml Syringe) 25 gm IVPUSH Q15M PRN; Protocol PRN Reason: per Hypoglycemia Standing Ord. Docusate Sodium (Docusate Sodium 100 Mg Capsule) 100 mg PO DAILY PRN PRN Reason: Constipation Enoxaparin Sodium (Enoxaparin Sodium 40 Mg/0.4 Ml Syringe) 40 mg SUBCUT Q24H [facility] Last Admin: 04/01/22 00:11 Dose: 40 mg Glucose (Glucose Gel 15 Gm Gel..Gram.) 15 gm PO Q15M PRN; Protocol PRN Reason: per Hypoglycemia Standing Ord. Cefepime HCl 1 gm/ Sodium (Chloride) 50 mls @ 100 mls/hr IV Q8H [facility] Last Infusion: 04/01/22 06:15 Dose: Infused Doxycycline Hyclate 100 mg/ (Sodium Chloride) 250 mls @ 166.67 mls/hr IV Q12H [facility] Last Admin: 04/01/22 08:30 Dose: 166.67 mls/hr Insulin Glargine (Insulin Glargine,Hum.Rec.Anlog 100 Unit/Ml 10 Ml Vial) 26 unit SUBCUT BEDTIME [facility] Insulin Human Lispro (Insulin Lispro 100 Unit/Ml 3 Ml Vial) 0 unit SUBCUT QIDACHS [facility]; Protocol Last Admin: 04/01/22 08:31 Dose: Not Given Isosorbide Mononitrate (Isosorbide Mononitrate 30 Mg Tab.Er.24h) 30 mg PO DAILY [facility]; Protocol Last Admin: 04/01/22 08:29 Dose: 30 mg Metoprolol Succinate (Metoprolol Succinate Er 50 Mg Tab.Er.24h) 50 mg PO DAILY [facility]; Protocol Last Admin: 04/01/22 08:29 Dose: 50 mg Ondansetron HCl (Ondansetron Hcl 4 Mg/2 Ml Vial) 4 mg IVPUSH Q8H PRN PRN Reason: Nausea and Vomiting Oxycodone HCl (Oxycodone Hcl Immed Release 5 Mg Tablet) 5 mg PO Q6H PRN PRN Reason: Pain, Severe (Pain Scale 7-10) Pharmacy Consult (Consult Rx Perform Med Rec) 1 each MISCELLANE ONCE PRN PRN Reason: Consult order Sodium Chloride (0.9 % Sodium Chloride Flush 3 Ml Syringe) 3 ml IVFLUSH QSHIFT [facility] Last Admin: 04/01/22 08:30 Dose: 3 ml Vitamin D (Cholecalciferol (Vitamin D3) 25 Mcg Tablet) 50 mcg PO DAILY [facility] Last Admin: 04/01/22 08:29 Dose: 50 mcg Home Medications Medication Instructions Recorded Confirmed Last Taken Type aspirin 81 mg tablet,delayed 1 tab PO QAM 03/31/22 03/31/22 Unknown History release atorvastatin 80 mg tablet 1 tab PO QAM 03/31/22 03/31/22 Unknown History cholecalciferol (vitamin D3) 50 1 cap PO QAM 03/31/22 03/31/22 Unknown History mcg (2,000 unit) capsule empagliflozin 25 mg tablet 1 tab PO DAILY 03/31/22 04/01/22 Unknown History (Jardiance) ezetimibe 10 mg tablet 1 tab PO DAILY 03/31/22 04/01/22 Unknown History furosemide 40 mg tablet 1 tab PO DAILY 03/31/22 04/01/22 Unknown History insulin glargine 100 unit/mL (3 26 unit subcut BEDTIME 03/31/22 03/31/22 Unknown History mL) subcutaneous pen (Lantus Solostar U-100 Insulin) isosorbide mononitrate 30 mg 1 tab PO QAM 03/31/22 03/31/22 Unknown History tablet,extended release 24 hr metformin 500 mg tablet,extended 2 tab PO BID 03/31/22 04/01/22 Unknown History release 24 hr metoprolol succinate 50 mg 1 tab PO QAM 03/31/22 03/31/22 Unknown History tablet,extended release 24 hr Physical Exam Vital Signs: Vital Signs: Last Vital Signs Temp 97.1 F 04/01/22 07:13 Pulse 62 04/01/22 07:13 Resp 18 04/01/22 07:13 BP 137/67 04/01/22 07:13 Pulse Ox 98 04/01/22 07:13 O2 Del Method 04/01/22 07:13 BMI result Body Mass Index 23.3 Const: General: comfortable and no acute distress Opal ation/consciousness: patient oriented x3 Neck: Neck: Yes no lymphadenopathy Resp: Auscultation: clear to auscultation bilaterally Cardio: Rhythm: regular rhythm GI: Palpation (GI): Soft to palpation, nontender and no guarding Neuro: General: patient oriented x3 Extrem: Other: right big toe with boggy fluid collection at tip. about 3 cm ,no cellulitis, no sinus Results Labs Result diagrams: 04/01/22 06:11 04/01/22 06:11 Labs: Abnormal lab results 03/31/22 03/31/22 03/31/22 Range/Units 19:13 19:13 19:13 WBC (4.8-10.8) X10*3/uL RBC (4.60-5.80) X10*6/uL Hgb 13.9 L (14.0-18.0) g/dl Hct (42.0-52.0) % Lymph % (Auto) 16.1 L (20-40) % Hart % (Auto) (2-11) % Lymph # (Auto) 0.9 L (1.2-4.9) X10*3/uL ESR 34 H (0-15) MM/HR BUN 17 H (9-16) mg/dL POC Glucose (60-115) mg/dL C-Reactive Protein 5.99 H (< or = 0.50) mg/dL Total Protein 8.7 H (6.5-8.0) g/dL 03/31/22 04/01/22 Range/Units 22:09 06:11 WBC 3.5 L (4.8-10.8) X10*3/uL RBC 4.53 L (4.60-5.80) X10*6/uL Hgb 12.7 L (14.0-18.0) g/dl Hct 39.6 L (42.0-52.0) % Lymph % (Auto) 17.6 L (20-40) % Hart % (Auto) 11.4 H (2-11) % Lymph # (Auto) 0.6 L (1.2-4.9) X10*3/uL ESR (0-15) MM/HR BUN (9-16) mg/dL POC Glucose 127 H (60-115) mg/dL C-Reactive Protein (< or = 0.50) mg/dL Total Protein (6.5-8.0) g/dL Short CBC 03/31/22 04/01/22 Range/Units 19:13 06:11 WBC 5.8 3.5 L (4.8-10.8) X10*3/uL Hgb 13.9 L 12.7 L (14.0-18.0) g/dl Hct 43.0 39.6 L (42.0-52.0) % Plt Count 207 171 (160-400) X10*3/uL BMP 03/31/22 04/01/22 19:13 06:11 Sodium 141 139 Potassium 4.9 4.8 Chloride 102 106 Carbon Dioxide 26 24 BUN 17 H 12 Creatinine 0.98 0.82 Calcium 9.7 9.2 Liver Function 03/31/22 Range/Units 19:13 Total Bilirubin 0.4 (0.0-1.0) mg/dL AST 28 (5-37) U/L ALT 27 (0-40) U/L Alkaline Phosphatase 69 (39-117) U/L Albumin 4.7 (3.5-5.0) g/dL All other labs normal. Imaging Additional studies: Laboratory Results WBC 3.5 X10*3/uL (4.8-10.8) L 04/01/22 06:11 RBC 4.53 X10*6/uL (4.60-5.80) L 04/01/22 06:11 Hgb 12.7 g/dl (14.0-18.0) L 04/01/22 06:11 Hct 39.6 % (42.0-52.0) L 04/01/22 06:11 MCV 87.4 fL (80.0-98.0) 04/01/22 06:11 MCH 28.0 pg (27.0-33.0) 04/01/22 06:11 MCHC 32.1 g/dl (31.0-36.0) 04/01/22 06:11 RDW 11.9 % (11.0-16.0) 04/01/22 06:11 Plt Count 171 X10*3/uL (160-400) 04/01/22 06:11 MPV 9.7 fL (9.4-12.4) 04/01/22 06:11 Immature Gran % (Auto) 0.3 % (0.0-0.4) 04/01/22 06:11 Neut % (Auto) 68.7 % (45-73) 04/01/22 06:11 Lymph % (Auto) 17.6 % (20-40) L 04/01/22 06:11 Hart % (Auto) 11.4 % (2-11) H 04/01/22 06:11 Eos % (Auto) 1.7 % (0-4) 04/01/22 06:11 Baso % (Auto) 0.3 % (0-2) 04/01/22 06:11 Lymph # (Auto) 0.6 X10*3/uL (1.2-4.9) L 04/01/22 06:11 Hart # (Auto) 0.4 X10*3/uL (0.1-1.2) 04/01/22 06:11 Eos # (Auto) 0.1 X10*3/uL (0.0-0.4) 04/01/22 06:11 Baso # (Auto) 0.0 X10*3/uL (0.0-0.2) 04/01/22 06:11 Abs Immat Gran (auto) 0.01 X10*3/uL (0.00-0.03) 04/01/22 06:11 Absolute Neuts (auto) 2.4 x10*3/uL (2.0-8.3) 04/01/22 06:11 Absolute Nucleated RBC 0.000 X10*3/uL (0.0-0.012) 04/01/22 06:11 Nucleated RBC % (auto) 0.0 /100WBC (0.0-0.2) 04/01/22 06:11 ESR 34 MM/HR (0-15) H 03/31/22 19:13 PT 12.6 SEC (10.0-13.1) 03/31/22 19:13 INR 1.1 (0.9-1.1) 03/31/22 19:13 Sodium 139 mmol/L (135-145) 04/01/22 06:11 Potassium 4.8 mmol/L (3.3-5.1) 04/01/22 06:11 Chloride 106 mmol/L (96-108) 04/01/22 06:11 Carbon Dioxide 24 mmol/L (22-29) 04/01/22 06:11 Anion Gap 14 (12-20) 04/01/22 06:11 BUN 12 mg/dL (9-16) 04/01/22 06:11 Creatinine 0.82 mg/dL (0.5-1.4) 04/01/22 06:11 Estim Creat Clear Calc 103.8 04/01/22 06:11 Estimated GFR > 60 04/01/22 06:11 POC Glucose 115 mg/dL (60-115) 04/01/22 07:17 Random Glucose 109 mg/dL (60-115) 04/01/22 06:11 Lactic Acid 0.8 mmol/L (0.5-2.0) 03/31/22 19:13 Calcium 9.2 mg/dL (8.4-10.2) 04/01/22 06:11 Magnesium 2.2 mg/dL (1.6-2.6) 03/31/22 19:13 Total Bilirubin 0.4 mg/dL (0.0-1.0) 03/31/22 19:13 AST 28 U/L (5-37) 03/31/22 19:13 ALT 27 U/L (0-40) 03/31/22 19:13 Alkaline Phosphatase 69 U/L (39-117) 03/31/22 19:13 C-Reactive Protein 5.99 mg/dL (< or = 0.50) H 03/31/22 19:13 Total Protein 8.7 g/dL (6.5-8.0) H 03/31/22 19:13 Albumin 4.7 g/dL (3.5-5.0) 03/31/22 19:13 COVID-19 (HA) Negative (Negative) 03/31/22 23:18 COVID-19 Clin Com See Note 03/31/22 23:18 Impressions Foot X-Ray 03/31/22 18:20 IMPRESSION: 1. Mild interval erosive change of the tuft of the great toe distal phalanx suspicious for small volume acute osteomyelitis. 2. Masslike soft tissue swelling overlying the distal great toe with a small bubble of soft tissue gas. Cannot exclude abscess. Consider forefoot MRI for assessment. Duplex Scan Lower Extremity Artery 03/31/22 20:20 IMPRESSION: No hemodynamically significant stenosis within the right lower extremity arterial vasculature. Venous Duplex 03/31/22 20:20 IMPRESSION: No DVT demonstrated in the right lower extremity. Assessment and Plan (1) Osteomyelitis of great toe of right foot: Status: Acute There is note of some bogginess on the area of the right big toe at the tip. There is no obvious cellulitis. His x-ray suggest osteomyelitis. I therefore proceeded to aspirate this area of bogginess and was able to aspirate about 60 cc of fluid. I sent this for cultures. This appeared serosanguineous . He does not require any debridement at this time. However, in view of the things of osteomyelitis, he may benefit from prolonged IV antibiotic therapy with a PICC line. His cultures from the big toe should be followed. I have discussed the above with the hospitalist service. Procedures Date of Service Date of Service: 04/01/22
--- NOTE | 2022-04-01 11:20 | HO.PM.IMPN ---
Subjective Subjective Date of Service: 04/01/22 Interval History: the patient was seen and evaluated this morning Laying in bed, feels comfortable Denies any fever, chills or shortness of breath Complaining of discomfort in his big toe. No reported other overnight events. Systemic review: No fever, chills or weakness No chest pain, palpitation No shortness of breath or coughing No abdominal pain, nausea or vomiting No urinary symptoms Big toe pain and swelling Physical Exam Vital Signs: Vital Signs: Last Vital Signs Temp 97.1 F 04/01/22 07:13 Pulse 62 04/01/22 07:13 Resp 18 04/01/22 07:13 BP 137/67 04/01/22 07:13 Pulse Ox 98 04/01/22 07:13 O2 Del Method 04/01/22 07:13 BMI result Body Mass Index 23.3 Const: Other: Constitutional : Alert, oriented, not in distress Neck : Normal inspection, Supple Cardiovascular : RRR, no JVP, no lower extremity edema Respiratory : fair bilateral air entry, no crackles, wheezes or rhonchi Gastrointestinal: soft, lax, Normal bowel sounds, Non tender Skin : Warm, Dry, decreased sensation at the palmar side of his feet, big toe right foot swollen, mildly warm but no redness. No drainage Neurological : Alert & oriented x3, No focal deficit , CN 2-12 within normal Objective Data Active Medications Acetaminophen (Acetaminophen 325 Mg Tablet) 650 mg PO Q6H PRN PRN Reason: Pain, Mild (Pain Scale 1-3) Aspirin (Aspirin Enteric Coated 81 Mg Tablet.) 81 mg PO DAILY [facility] Last Admin: 04/01/22 08:29 Dose: 81 mg Documented By: KOBI Atorvastatin Calcium (Atorvastatin Calcium 80 Mg Tablet) 80 mg PO DAILY [facility] Last Admin: 04/01/22 08:29 Dose: 80 mg Documented By: KOBI Dextrose (Dextrose 50 % 25 Gm/50 Ml Syringe) 25 gm IVPUSH Q15M PRN; Protocol PRN Reason: per Hypoglycemia Standing Ord. Docusate Sodium (Docusate Sodium 100 Mg Capsule) 100 mg PO DAILY PRN PRN Reason: Constipation Enoxaparin Sodium (Enoxaparin Sodium 40 Mg/0.4 Ml Syringe) 40 mg SUBCUT Q24H [facility] Last Admin: 04/01/22 00:11 Dose: 40 mg Documented By: KODI Glucose (Glucose Gel 15 Gm Gel..Gram.) 15 gm PO Q15M PRN; Protocol PRN Reason: per Hypoglycemia Standing Ord. Cefepime HCl 1 gm/ Sodium (Chloride) 50 mls @ 100 mls/hr IV Q8H [facility] Last Infusion: 04/01/22 06:15 Dose: 0 mls/hr Documented By: PREET Doxycycline Hyclate 100 mg/ (Sodium Chloride) 250 mls @ 166.67 mls/hr IV Q12H [facility] Last Infusion: 04/01/22 10:12 Dose: 0 mls/hr Documented By: KOBI Insulin Glargine (Insulin Glargine,Hum.Rec.Anlog 100 Unit/Ml 10 Ml Vial) 26 unit SUBCUT BEDTIME [facility] Insulin Human Lispro (Insulin Lispro 100 Unit/Ml 3 Ml Vial) 0 unit SUBCUT QIDACHS [facility]; Protocol Last Admin: 04/01/22 08:31 Dose: Not Given Documented By: KOBI Non-Admin Reason: No Insulin Coverage Isosorbide Mononitrate (Isosorbide Mononitrate 30 Mg Tab.Er.24h) 30 mg PO DAILY [facility]; Protocol Last Admin: 04/01/22 08:29 Dose: 30 mg Documented By: KOBI Metoprolol Succinate (Metoprolol Succinate Er 50 Mg Tab.Er.24h) 50 mg PO DAILY [facility]; Protocol Last Admin: 04/01/22 08:29 Dose: 50 mg Documented By: KOBI Ondansetron HCl (Ondansetron Hcl 4 Mg/2 Ml Vial) 4 mg IVPUSH Q8H PRN PRN Reason: Nausea and Vomiting Oxycodone HCl (Oxycodone Hcl Immed Release 5 Mg Tablet) 5 mg PO Q6H PRN PRN Reason: Pain, Severe (Pain Scale 7-10) Pharmacy Consult (Consult Rx Perform Med Rec) 1 each MISCELLANE ONCE PRN PRN Reason: Consult order Sodium Chloride (0.9 % Sodium Chloride Flush 3 Ml Syringe) 3 ml IVFLUSH QSHIFT [facility] Last Admin: 04/01/22 08:30 Dose: 3 ml Documented By: KOBI Vitamin D (Cholecalciferol (Vitamin D3) 25 Mcg Tablet) 50 mcg PO DAILY [facility] Last Admin: 04/01/22 08:29 Dose: 50 mcg Documented By: KOBI Labs CBC & Chem 7: 04/01/22 06:11 04/01/22 06:11 Labs: Laboratory Results - last 24 hr 03/31/22 03/31/22 03/31/22 19:13 19:13 19:13 MCV 86.5 MCH 28.0 MCHC 32.3 RDW 12.1 Plt Count 207 MPV 9.5 Immature Gran % (Auto) 0.3 Neut % (Auto) 72.7 Lymph % (Auto) 16.1 L Owsley % (Auto) 8.8 Eos % (Auto) 1.9 Baso % (Auto) 0.2 Lymph # (Auto) 0.9 L [place] # (Auto) 0.5 Eos # (Auto) 0.1 Baso # (Auto) 0.0 Abs Immat Gran (auto) 0.02 Absolute Neuts (auto) 4.2 Absolute Nucleated RBC 0.000 Nucleated RBC % (auto) 0.0 ESR PT 12.6 INR 1.1 Anion Gap 18 Estim Creat Clear Calc 86.8 Estimated GFR > 60 POC Glucose Random Glucose 101 D Lactic Acid Calcium 9.7 Magnesium 2.2 Total Bilirubin 0.4 AST 28 ALT 27 Alkaline Phosphatase 69 C-Reactive Protein 5.99 H Total Protein 8.7 H Albumin 4.7 COVID-19 (HA) COVID-19 Clin Com 03/31/22 03/31/22 03/31/22 19:13 19:13 22:09 MCV MCH MCHC RDW Plt Count MPV Immature Gran % (Auto) Neut % (Auto) Lymph % (Auto) Owsley % (Auto) Eos % (Auto) Baso % (Auto) Lymph # (Auto) Owsley # (Auto) Eos # (Auto) Baso # (Auto) Abs Immat Gran (auto) Absolute Neuts (auto) Absolute Nucleated RBC Nucleated RBC % (auto) ESR 34 H PT INR Anion Gap Estim Creat Clear Calc Estimated GFR POC Glucose 127 H Random Glucose Lactic Acid 0.8 Calcium Magnesium Total Bilirubin AST ALT Alkaline Phosphatase C-Reactive Protein Total Protein Albumin COVID-19 (HA) COVID-19 Clin Com 03/31/22 04/01/22 04/01/22 23:18 06:11 06:11 MCV 87.4 MCH 28.0 MCHC 32.1 RDW 11.9 Plt Count 171 MPV 9.7 Immature Gran % (Auto) 0.3 Neut % (Auto) 68.7 Lymph % (Auto) 17.6 L [place] % (Auto) 11.4 H Eos % (Auto) 1.7 Baso % (Auto) 0.3 Lymph # (Auto) 0.6 L [place] # (Auto) 0.4 Eos # (Auto) 0.1 Baso # (Auto) 0.0 Abs Immat Gran (auto) 0.01 Absolute Neuts (auto) 2.4 Absolute Nucleated RBC 0.000 Nucleated RBC % (auto) 0.0 ESR PT INR Anion Gap 14 Estim Creat Clear Calc 103.8 Estimated GFR > 60 POC Glucose Random Glucose 109 Lactic Acid Calcium 9.2 Magnesium Total Bilirubin AST ALT Alkaline Phosphatase C-Reactive Protein Total Protein Albumin COVID-19 (HA) Negative COVID-19 Clin Com See Note 04/01/22 07:17 MCV MCH MCHC RDW Plt Count MPV Immature Gran % (Auto) Neut % (Auto) Lymph % (Auto) Owsley % (Auto) Eos % (Auto) Baso % (Auto) Lymph # (Auto) Owsley # (Auto) Eos # (Auto) Baso # (Auto) Abs Immat Gran (auto) Absolute Neuts (auto) Absolute Nucleated RBC Nucleated RBC % (auto) ESR PT INR Anion Gap Estim Creat Clear Calc Estimated GFR POC Glucose 115 Random Glucose Lactic Acid Calcium Magnesium Total Bilirubin AST ALT Alkaline Phosphatase C-Reactive Protein Total Protein Albumin COVID-19 (HA) COVID-19 Clin Com Assessment and Plan (1) Osteomyelitis of great toe of right foot: Status: Acute Plan 61-year-old male with past medical history of hypertension, diabetes, presents to the hospital with complaints of right toe swelling found to have possible osteomyelitis # right great toe osteomyelitis evidence of osteomyelitis on x-ray of the foot, with possible abscess Continue broad-spectrum antibiotic Had reaction to vancomycin with significant itching, discontinued and started on doxycycline instead Pending MRI Pending surgery evaluation Id consult when appropriate pending cultures # diabetes low-dose sliding scale insulin, continue home insulin diabetic diet # hypertension stable Continue metoprolol and isosorbide mononitrate DVT prophylaxis: Lovenox Patient will need to overnight hospital stay for treatment of osteomyelitis to prevent possible decompensation into sepsis. Quality Stroke Does the patient have a stroke diagnosis?: No VTE Prior VTE?: No VTE Risk Level:: Medical - moderate - high VTE Device Contraindication: Treatment Not Indicated VTE Drug Contraindication: N/A - Med Ordered
[2022-04-01 11:43] LABS: Glucose, Whole Blood 126 mg/dL (60-115)
--- NOTE | 2022-04-01 13:20 | MHC.CM.PN ---
IMM 04/01/22, EMR REVIEWED PT ADMITTED W/CYST ON TOE AND FOUND TO HAVE OSTEOMYELITIS AND POSSIBLE ABSCESS, CM MET W/PT VIA BOTTLE TESTER, PT REPORTS HE USES A CANE/WALKER/W/C WHICH HE USES ON OCCASION, PT REPORTS HE HAS 21[employer]5 [employer]ARNING AND DEVELOPMENT [employer] HRS /[employer] THROUGH [employer] AND HIS SON JUANITA IS HIS LEARNING AND DEVELOPMENT SPECIALIST, PT VERIFIES PCP IS TATO HALL, [facility] X2 AND WOULD LIKE TO COMPLETE A HCP THIS ADMISSION. 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 D/C PLAN: HOME VS STR FOR IV ABX, TRANSPORT PENDING DISPO
[2022-04-01 16:12] LABS: Glucose, Whole Blood 114 mg/dL (60-115)
[2022-04-01 21:37] LABS: Glucose, Whole Blood 113 mg/dL (60-115)
[2022-04-02 03:53] VITALS: BP 112/56; PULSE 57; RESP 16; TEMP 35.9; O2SAT 97
[2022-04-02] MEDS: cefEPime HCl 1 GM in 0.9 % Sodium Chloride 50 ML IV ×3 (05:36→21:07)
[2022-04-02 06:13] LABS: Anion Gap 12 (12-20); Blood Urea Nitrogen 15 mg/dL (9-16); Calcium 9.2 mg/dL (8.4-10.2); Carbon Dioxide 26 mmol/L (22-29); Chloride 106 mmol/L (96-108); Creatinine Clr Calc Pharmacy 96.7; Estimated Glomerular Filt Rate > 60; Glucose Random 93 mg/dL (60-115); Potassium 4.4 mmol/L (3.3-5.1); Sodium 140 mmol/L (135-145)
[2022-04-02 07:12] VITALS: BP 123/60; PULSE 55; RESP 16; TEMP 36.4; O2SAT 98
[2022-04-02] MEDS: Cholecalciferol (Vitamin D3) 25 MCG TABLET 50 MCG PO (07:26)
[2022-04-02] MEDS: Isosorbide Mononitrate 30 MG TAB.ER.24H PO (07:26)
[2022-04-02] MEDS: 0.9 % Sodium Chloride Flush 3 ML SYRINGE IVFLUSH ×2 (07:27→14:25)
[2022-04-02] MEDS: Atorvastatin Calcium 80 MG TABLET PO (07:27)
[2022-04-02] MEDS: Metoprolol Succinate ER 50 MG TAB.ER.24H PO (07:27)
[2022-04-02] MEDS: Aspirin Enteric Coated 81 MG TABLET.DR PO (07:27)
[2022-04-02 07:37] LABS: Glucose, Whole Blood 82 mg/dL (60-115)
[2022-04-02] MEDS: Doxycycline Hyclate 100 MG in 0.9 % Sodium Chloride 250 ML 166.67 MG IV ×2 (10:25→21:47)
[2022-04-02 11:06] VITALS: BP 118/58; PULSE 54; RESP 17; TEMP 36.4; O2SAT 98
[2022-04-02 11:22] LABS: Glucose, Whole Blood 101 mg/dL (60-115)
--- NOTE | 2022-04-02 12:02 | HO.PM.IMPN ---
Subjective Subjective Date of Service: 04/02/22 Interval History: the patient was seen and evaluated this morning Laying in bed, feels comfortable Denies any fever, chills or shortness of breath no discomfort in his big toe. No reported other overnight events. Systemic review: No fever, chills or weakness No chest pain, palpitation No shortness of breath or coughing No abdominal pain, nausea or vomiting No urinary symptoms Big toe swelling improved Physical Exam Vital Signs: Vital Signs: Last Vital Signs Temp 97.6 F 04/02/22 11:06 Pulse 54 04/02/22 11:06 Resp 17 04/02/22 11:06 BP 118/58 L 04/02/22 11:06 Pulse Ox 98 04/02/22 11:06 O2 Del Method 04/02/22 11:06 BMI result Body Mass Index 23.3 Const: Other: Constitutional : Alert, oriented, not in distress Neck : Normal inspection, Supple Cardiovascular : RRR, no JVP, no lower extremity edema Respiratory : fair bilateral air entry, no crackles, wheezes or rhonchi Gastrointestinal: soft, lax, Normal bowel sounds, Non tender Skin : Warm, Dry, decreased sensation at the palmar side of his feet, big toe right foot the swelling decreased with no significant drainage Neurological : Alert & oriented x3, No focal deficit , CN 2-12 within normal Objective Data Active Medications Acetaminophen (Acetaminophen 325 Mg Tablet) 650 mg PO Q6H PRN PRN Reason: Pain, Mild (Pain Scale 1-3) Aspirin (Aspirin Enteric Coated 81 Mg Tablet.) 81 mg PO DAILY [facility] Last Admin: 04/02/22 07:27 Dose: 81 mg Documented By: KOBI Atorvastatin Calcium (Atorvastatin Calcium 80 Mg Tablet) 80 mg PO DAILY [facility] Last Admin: 04/02/22 07:27 Dose: 80 mg Documented By: KOBI Dextrose (Dextrose 50 % 25 Gm/50 Ml Syringe) 25 gm IVPUSH Q15M PRN; Protocol PRN Reason: per Hypoglycemia Standing Ord. Docusate Sodium (Docusate Sodium 100 Mg Capsule) 100 mg PO DAILY PRN PRN Reason: Constipation Enoxaparin Sodium (Enoxaparin Sodium 40 Mg/0.4 Ml Syringe) 40 mg SUBCUT Q24H [facility] Last Admin: 04/01/22 21:55 Dose: 40 mg Documented By: VENKATESH Glucose (Glucose Gel 15 Gm Gel..Gram.) 15 gm PO Q15M PRN; Protocol PRN Reason: per Hypoglycemia Standing Ord. Cefepime HCl 1 gm/ Sodium (Chloride) 50 mls @ 100 mls/hr IV Q8H [facility] Last Infusion: 04/02/22 06:10 Dose: 0 mls/hr Documented By: VENKATESH Doxycycline Hyclate 100 mg/ (Sodium Chloride) 250 mls @ 166.67 mls/hr IV Q12H [facility] Last Admin: 04/02/22 10:25 Dose: 166.67 mls/hr Documented By: KOBI Insulin Glargine (Insulin Glargine,Hum.Rec.Anlog 100 Unit/Ml 10 Ml Vial) 26 unit SUBCUT BEDTIME [facility] Last Admin: 04/01/22 22:04 Dose: Not Given Documented By: VENKATESH Non-Admin Reason: Patient Refused Insulin Human Lispro (Insulin Lispro 100 Unit/Ml 3 Ml Vial) 0 unit SUBCUT QIDACHS [facility]; Protocol Last Admin: 04/02/22 11:48 Dose: Not Given Documented By: KOBI Non-Admin Reason: No Insulin Coverage Isosorbide Mononitrate (Isosorbide Mononitrate 30 Mg Tab.Er.24h) 30 mg PO DAILY [facility]; Protocol Last Admin: 04/02/22 07:26 Dose: 30 mg Documented By: KOBI Metoprolol Succinate (Metoprolol Succinate Er 50 Mg Tab.Er.24h) 50 mg PO DAILY [facility]; Protocol Last Admin: 04/02/22 07:27 Dose: 50 mg Documented By: KOBI Ondansetron HCl (Ondansetron Hcl 4 Mg/2 Ml Vial) 4 mg IVPUSH Q8H PRN PRN Reason: Nausea and Vomiting Oxycodone HCl (Oxycodone Hcl Immed Release 5 Mg Tablet) 5 mg PO Q6H PRN PRN Reason: Pain, Severe (Pain Scale 7-10) Pharmacy Consult (Consult Rx Perform Med Rec) 1 each MISCELLANE ONCE PRN PRN Reason: Consult order Sodium Chloride (0.9 % Sodium Chloride Flush 3 Ml Syringe) 3 ml IVFLUSH QSHIFT [facility] Last Admin: 04/02/22 07:27 Dose: 3 ml Documented By: KOBI Vitamin D (Cholecalciferol (Vitamin D3) 25 Mcg Tablet) 50 mcg PO DAILY [facility] Last Admin: 04/02/22 07:26 Dose: 50 mcg Documented By: KOBI Labs CBC & Chem 7: 04/01/22 06:11 04/02/22 05:27 Labs: Laboratory Results - last 24 hr 04/01/22 04/01/22 04/02/22 15:49 21:00 05:27 Anion Gap 12 Estim Creat Clear Calc 96.7 Estimated GFR > 60 POC Glucose 114 113 Random Glucose 93 Calcium 9.2 04/02/22 04/02/22 07:17 11:09 Anion Gap Estim Creat Clear Calc Estimated GFR POC Glucose 82 101 Random Glucose Calcium Microbiology Microbiology Results: Microbiology 04/01/22 Unknown Gram Stain - Final Toe Routine Culture - Preliminary Staphylococcus aureus 03/31/22 19:52 Blood Culture - Preliminary Blood - Venous No growth after 24 hours. 03/31/22 19:51 Blood Culture - Preliminary Blood - Venous No growth after 24 hours. Assessment and Plan (1) Osteomyelitis of great toe of right foot: Status: Acute (2) Leucopenia: Status: Acute Plan 61-year-old male with past medical history of hypertension, diabetes, presents to the hospital with complaints of right toe swelling found to have possible osteomyelitis # right great toe osteomyelitis evidence of osteomyelitis on x-ray of the foot, with possible abscess Continue broad-spectrum antibiotic Had reaction to vancomycin with significant itching, discontinued and started on doxycycline instead surgery input appreciated, medical treatment with 6 weeks of IV antibiotics Id consult when appropriate pending cultures to place PICC line tomorrow with plan to discharge on daptomycin for total of 6 weeks # diabetes low-dose sliding scale insulin, continue home insulin diabetic diet # hypertension stable Continue metoprolol and isosorbide mononitrate # Leukopenia Chronic,Workup with hematology as outpatient to monitor DVT prophylaxis: Lovenox Patient will need to overnight hospital stay for treatment of osteomyelitis to prevent possible decompensation into sepsis. Quality Stroke Does the patient have a stroke diagnosis?: No VTE Prior VTE?: No VTE Risk Level:: Medical - moderate - high VTE Device Contraindication: Treatment Not Indicated VTE Drug Contraindication: N/A - Med Ordered
--- NOTE | 2022-04-02 14:40 | MHC.CM.PN ---
PER PREVIOUS RECORDS PT HAD IV ABX AT HOME IN 2018 W/[facility] AND [facility], PER HOSPITALIST PT WILL GO ON IV DAPTO Q24HRS, PER [facility] PT IS FULLY COVERED AND LIAISON WILL BE IN FOR TEACH AROUND NOON TOMORROW FOR TEACH. LIAISON REQUESTING WE NOTIFY PCP IF THAT IS WHO WILL BE FOLLOWING LABS. [facility] UNABLE TO DO SOC UNTIL AND REFERRAL SENT TO ADDITIONAL VNA'S, CM AWAITING REPOSNSE. CM ATTMPTED TO CONTACT PT'S SON/CAREGIVER JUANITA AT 2:35PM AT NUMBER ON FILE TO DETERMINE IF HE WILL BE ABLE TO ASSIST W/IV ABX, CM AWAITING CALL BACK.
[2022-04-02 16:00] VITALS: PULSE 49; RESP 16; TEMP 36.2; O2SAT 98
[2022-04-02 17:29] LABS: Glucose, Whole Blood 113 mg/dL (60-115)
[2022-04-02 20:00] VITALS: BP 115/58; PULSE 50; RESP 18; TEMP 36.2; O2SAT 97
[2022-04-02 20:48] LABS: Glucose, Whole Blood 142 mg/dL (60-115)
[2022-04-02] MEDS: Insulin Glargine,Hum.rec.anlog 100 UNIT/ML 10 ML VIAL 26 UNIT SUBCUT (21:09)
[2022-04-02] MEDS: Enoxaparin Sodium 40 MG/0.4 ML SYRINGE SUBCUT (21:10)
--- NOTE | 2022-04-02 23:33 | PC.NURSE ---
pt's blood sugar was 142 at bedtime, he has scheduled lantus 26 untis, pt requested to only take 20 units of lantus. 20 units of lantus administered.
[2022-04-02 23:45] VITALS: BP 128/61; PULSE 84; RESP 16; TEMP 36.2; O2SAT 98
[2022-04-03] MEDS: 0.9 % Sodium Chloride Flush 3 ML SYRINGE IVFLUSH ×5 (00:20→23:06)
[2022-04-03 03:59] VITALS: BP 121/58; PULSE 56; RESP 16; TEMP 36.7; O2SAT 98
[2022-04-03] MEDS: cefEPime HCl 1 GM in 0.9 % Sodium Chloride 50 ML IV (05:36)
[2022-04-03 07:46] LABS: Glucose, Whole Blood 90 mg/dL (60-115)
[2022-04-03 08:00] VITALS: BP 119/64; PULSE 66; RESP 18; TEMP 36; O2SAT 99
[2022-04-03] MEDS: Cholecalciferol (Vitamin D3) 25 MCG TABLET 50 MCG PO (08:44)
[2022-04-03] MEDS: Metoprolol Succinate ER 50 MG TAB.ER.24H PO (08:44)
[2022-04-03] MEDS: Atorvastatin Calcium 80 MG TABLET PO (08:44)
[2022-04-03] MEDS: Aspirin Enteric Coated 81 MG TABLET.DR PO (08:45)
[2022-04-03] MEDS: Isosorbide Mononitrate 30 MG TAB.ER.24H PO (08:45)
[2022-04-03] MEDS: Doxycycline Hyclate 100 MG in 0.9 % Sodium Chloride 250 ML 166.67 MG IV (08:46)
--- NOTE | 2022-04-03 09:35 | MHC.CM.PN ---
Addendum entered by Nida Russell 04/03/22 13:21: Per MD rounds Dispo SNF for LT ABX. Patient ordered IV ABX TID. He lives alone. Facility preferences were obtained and referrals sent. The patient has accepted a bed at his 1st choice [facility] They have offered a bed tomorrow. [facility] via BLS. 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 [facility]ivers has accepted the home infusion case.
--- NOTE | 2022-04-03 11:59 | P.PNIM_ITS ---
Subjective Subjective Date of Service: 04/03/22 Interval History: the patient was seen and evaluated this morning Laying in bed, feels comfortable Denies any fever, chills or shortness of breath no discomfort in his big toe. No reported other overnight events. Systemic review: No fever, chills or weakness No chest pain, palpitation No shortness of breath or coughing No abdominal pain, nausea or vomiting No urinary symptoms Big toe swelling improved Physical Exam Vital Signs: Vital Signs: Last Vital Signs Temp 96.8 F 04/03/22 08:00 Pulse 66 04/03/22 08:00 Resp 18 04/03/22 08:00 BP 119/64 04/03/22 08:00 Pulse Ox 99 04/03/22 08:00 O2 Del Method 04/03/22 08:00 BMI result Body Mass Index 23.3 Const: Other: Constitutional : Alert, oriented, not in distress Neck : Normal inspection, Supple Cardiovascular : RRR, no JVP, no lower extremity edema Respiratory : fair bilateral air entry, no crackles, wheezes or rhonchi Gastrointestinal: soft, lax, Normal bowel sounds, Non tender Skin : Warm, Dry, decreased sensation at the palmar side of his feet, big toe right foot the swelling decreased with no significant drainage or pain Neurological : Alert & oriented x3, No focal deficit , CN 2-12 within normal Objective Data Active Medications Acetaminophen (Acetaminophen 325 Mg Tablet) 650 mg PO Q6H PRN PRN Reason: Pain, Mild (Pain Scale 1-3) Aspirin (Aspirin Enteric Coated 81 Mg Tablet.) 81 mg PO DAILY [facility] Last Admin: 04/03/22 08:45 Dose: 81 mg Documented By: MARY Atorvastatin Calcium (Atorvastatin Calcium 80 Mg Tablet) 80 mg PO DAILY [facility] Last Admin: 04/03/22 08:44 Dose: 80 mg Documented By: MARY Dextrose (Dextrose 50 % 25 Gm/50 Ml Syringe) 25 gm IVPUSH Q15M PRN; Protocol PRN Reason: per Hypoglycemia Standing Ord. Docusate Sodium (Docusate Sodium 100 Mg Capsule) 100 mg PO DAILY PRN PRN Reason: Constipation Enoxaparin Sodium (Enoxaparin Sodium 40 Mg/0.4 Ml Syringe) 40 mg SUBCUT Q24H [facility] Last Admin: 04/02/22 21:10 Dose: 40 mg Documented By: ALEX Glucose (Glucose Gel 15 Gm Gel..Gram.) 15 gm PO Q15M PRN; Protocol PRN Reason: per Hypoglycemia Standing Ord. Cefazolin Sodium/Dextrose (Ancef) 2 gm in 50 mls @ 100 mls/hr IV Q8H [facility] Insulin Glargine (Insulin Glargine,Hum.Rec.Anlog 100 Unit/Ml 10 Ml Vial) 26 unit SUBCUT BEDTIME [facility] Last Admin: 04/02/22 21:09 Dose: 20 unit Documented By: ALEX Comments: pt requested to only have 20 Insulin Human Lispro (Insulin Lispro 100 Unit/Ml 3 Ml Vial) 0 unit SUBCUT QIDACHS [facility]; Protocol Last Admin: 04/03/22 08:36 Dose: Not Given Documented By: MARY Non-Admin Reason: No Insulin Coverage Isosorbide Mononitrate (Isosorbide Mononitrate 30 Mg Tab.Er.24h) 30 mg PO DAILY [facility]; Protocol Last Admin: 04/03/22 08:45 Dose: 30 mg Documented By: MARY Metoprolol Succinate (Metoprolol Succinate Er 50 Mg Tab.Er.24h) 50 mg PO DAILY [facility]; Protocol Last Admin: 04/03/22 08:44 Dose: 50 mg Documented By: MARY Ondansetron HCl (Ondansetron Hcl 4 Mg/2 Ml Vial) 4 mg IVPUSH Q8H PRN PRN Reason: Nausea and Vomiting Oxycodone HCl (Oxycodone Hcl Immed Release 5 Mg Tablet) 5 mg PO Q6H PRN PRN Reason: Pain, Severe (Pain Scale 7-10) Pharmacy Consult (Consult Rx Perform Med Rec) 1 each MISCELLANE ONCE PRN PRN Reason: Consult order Sodium Chloride (0.9 % Sodium Chloride Flush 3 Ml Syringe) 3 ml IVFLUSH QSHIFT [facility] Last Admin: 04/03/22 08:45 Dose: 3 ml Documented By: MARY Vitamin D (Cholecalciferol (Vitamin D3) 25 Mcg Tablet) 50 mcg PO DAILY [facility] Last Admin: 04/03/22 08:44 Dose: 50 mcg Documented By: MARY Labs CBC & Chem 7: 04/01/22 06:11 04/02/22 05:27 Labs: Laboratory Results - last 24 hr 04/02/22 04/02/22 04/03/22 17:26 20:43 07:14 POC Glucose 113 142 H 90 Microbiology Microbiology Results: Microbiology 04/01/22 Unknown Gram Stain - Final Toe Routine Culture - Final Staphylococcus aureus 03/31/22 19:52 Blood Culture - Preliminary Blood - Venous No growth after 48 hours. 03/31/22 19:51 Blood Culture - Preliminary Blood - Venous No growth after 48 hours. Assessment and Plan (1) Osteomyelitis of great toe of right foot: Status: Acute (2) Leucopenia: Status: Acute Plan 61-year-old male with past medical history of hypertension, diabetes, presents to the hospital with complaints of right toe swelling found to have possible osteomyelitis # right great toe osteomyelitis evidence of osteomyelitis on x-ray of the foot, with possible abscess Wound culture growing MSSA Change antibiotic to cefazolin surgery input appreciated, medical treatment with 6 weeks of IV antibiotics negative blood cultures to place PICC line # diabetes low-dose sliding scale insulin, continue home insulin diabetic diet # hypertension stable Continue metoprolol and isosorbide mononitrate # Leukopenia Chronic,Workup with hematology as outpatient to monitor DVT prophylaxis: Lovenox Patient will need to overnight hospital stay for treatment of osteomyelitis to prevent possible decompensation into sepsis pending safe discharge plan Quality Stroke Does the patient have a stroke diagnosis?: No VTE Prior VTE?: No VTE Risk Level:: Medical - moderate - high VTE Device Contraindication: Treatment Not Indicated VTE Drug Contraindication: N/A - Med Ordered
--- NOTE | 2022-04-03 12:42 | HO.PICC ---
PICC Line Insertion NPICC Diagnosis: [Osteomyelitis] Indication: salvage determiner antibiotics needed Pertinent Labs: reviewed Technique: Following informed consent including risks, benefits and alternatives and using sterile technique including cap and mask, sterile gown, glove and drape, the right arm was prepped and draped in the usual sterile fashion of full barrier technique with CHG. Following completion of [place]ston Protocol the skin and soft tissues were anesthetized with 1% Lidocaine plain. Using ultrasound guidance, right basilic vein access was attempted twice by Aydin Lara RN, but was unsuccessful. Right basilic vein was accessed on first attempt by Víctor Pugh RN, but unable to pass guidewire. Right brachial vein was then accessed by Víctor Pugh RN. Over an 0.018 wire through peel-away sheath, a 4 FR single lumen PASV PICC line was positioned. Catheter length is 38 CM internal length, 0 CM external length, for a total trimmed length of 38 CM. The procedure was performed in S272. Tip verification was performed by Susi Smith with Sherlock 3CG. Tip located in SVC. Ultrasound was used to document vein patency and for needle entry. A formal ultrasound picture and cardiac rhythm strip was recorded. Vascular Auto Mechanics Instructor has released the line for use and it is currently dressed with a StatLock, Tegaderm, and CHG disc. Verification has been performed for blood return and line patency. Arm Circumference: 28.5 CM Equipment: Desigual Power PICC Solo Catheter Type: 4 FR single lumen PASV PICC Lot #: [id number]
[2022-04-03 12:53] VITALS: BP 119/64; PULSE 66; O2SAT 99
[2022-04-03 13:52] LABS: Glucose, Whole Blood 90 mg/dL (60-115)
[2022-04-03] MEDS: ceFAZolin Sodium/Dextrose,Iso 2 GM/50 ML PIGGYBACK IV ×2 (13:53→19:33)
[2022-04-03 14:49] LABS: COVID-19 Test Negative (Negative); IDNOW Serial# 55D5AD1C
[2022-04-03 15:21] VITALS: BP 115/59; PULSE 56; RESP 18; TEMP 36.6; O2SAT 98
[2022-04-03 16:36] LABS: Glucose, Whole Blood 114 mg/dL (60-115)
[2022-04-03] MEDS: 0.9 % Sodium Chloride Flush 10 ML SYRINGE 5 ML IVFLUSH ×2 (16:58→23:06)
[2022-04-03 19:09] VITALS: BP 112/60; PULSE 55; RESP 17; TEMP 36.4; O2SAT 98
[2022-04-03 19:47] LABS: Glucose, Whole Blood 100 mg/dL (60-115)
[2022-04-03] MEDS: Enoxaparin Sodium 40 MG/0.4 ML SYRINGE SUBCUT (20:53)
[2022-04-04] VITALS: BP 128/66; PULSE 61; RESP 18; TEMP 36.1; O2SAT 99
[2022-04-04] MEDS: ceFAZolin Sodium/Dextrose,Iso 2 GM/50 ML PIGGYBACK IV ×2 (03:43→12:08)
[2022-04-04 04:00] VITALS: BP 128/62; PULSE 51; RESP 18; TEMP 36.3; O2SAT 98
[2022-04-04 06:52] VITALS: BP 144/71; PULSE 58; RESP 18; TEMP 36.1; O2SAT 99
[2022-04-04 07:02] LABS: Glucose, Whole Blood 86 mg/dL (60-115)
[2022-04-04] MEDS: Isosorbide Mononitrate 30 MG TAB.ER.24H PO (07:56)
[2022-04-04] MEDS: Cholecalciferol (Vitamin D3) 25 MCG TABLET 50 MCG PO (07:56)
[2022-04-04] MEDS: Aspirin Enteric Coated 81 MG TABLET.DR PO (07:56)
[2022-04-04] MEDS: Atorvastatin Calcium 80 MG TABLET PO (07:58)
[2022-04-04] MEDS: 0.9 % Sodium Chloride Flush 10 ML SYRINGE 5 ML IVFLUSH (08:03)
--- NOTE | 2022-04-04 09:39 | MHC.CM.PN ---
WITH ASSIST OF SUPERVISOR PRODUCT INSPECTION, PATIENT AGREES TOGO TO [facility], IT IS ON THE BUS LINE. HE FEELS SAFER WITH THIS PLAN. LUIGI AND HERMINIO MADE AWARE. NAOMIE OMALLEY ALSO AWARE TRANSPORT TO BE ARRANGED FOLLOWING MEDICAL ROUNDS
[2022-04-04 11:01] VITALS: BP 152/81; PULSE 69; RESP 16; TEMP 36.3; O2SAT 99
[2022-04-04 11:10] LABS: Glucose, Whole Blood 111 mg/dL (60-115)
--- NOTE | 2022-04-04 11:18 | PM.DS ---
DS: Providers Provider Date of Service: 04/04/22 Date of admission: 03/31/22 20:43 Primary care physician: Naina Perera Consults: 04/01/22 06:16 Consult to General Surgery Routine Consulting Provider: Stefano Sotelo Reason for consultation: osteo, abscess? Has provider been notified: No DS: Diagnosis Discharge Diagnosis (1) Osteomyelitis of great toe of right foot: Status: Acute (2) Leucopenia: Status: Acute DS: Summary Hospital Course Hospital Course: Admission note HPI Macedonian-speaking only, history is obtained with the help of clamp operator ?61-year-old male with past medical history of diabetes, hypertension, HLD presents the hospital with complaints of bright swollen big toe.? Patient reports that he developed significant swelling, been a prior and he felt that his toe became like a balloon and squishy . Patient reports that he felt febrile, had chills, reports has chronic neuropathy therefore felt no pain, but he notice some warmth and mild erythema.? Patient reports that on the 16 of March, he went to his primary care doctor, at that time his right big toe had also been slightly swollen, warm and had some drainage, therefore his PCP gave him a 7 day course of antibiotic cephalexin, with significant improvement.? He he felt that this infection has gone away.?He denies any chest pain, no shortness of breath, no headache or change in vision, no abdominal pain nausea or vomiting, no diarrhea or constipation, no urinary symptoms and no lower extremity edema On arrival to the ED patient hemodynamically stable with no significant abnormal vitals Foot x-ray shows mild interval erosive change of the tuft of the great toe distal phalanx suspicious for acute osteomyelitis, masslike soft tissue swelling overlying the distal great toe with a small bubble of soft tissue gas, cannot exclude abscess. Patient started on IV antibiotics will be admitted for further management Hospital course The patient was admitted to the hospital for evaluation and treatment of IV dose of osteomyelitis on the right big toe. Started on broad-spectrum antibiotic of vancomycin and cefepime but developed significant reaction from the vancomycin so it was changed doxycycline. Evaluated by surgery team who did aspiration of the cyst noted on the x-ray. Cultures from the wound grew MSSA. Blood cultures remain negative. A PICC line was placed with plan to discharge the patient on cefazolin for MSSA osteomyelitis to finish total of 6 weeks of IV antibiotics. to follow with wound care as outpatient Time Spent with Patient Time attestation: Total time spent providing and/or coordinating discharge services: Discharge coordination time: Greater than 30 minutes Quality: Safe Use of Opioids Does Pt have an Active Cancer Diagnosis on the Problem List?: No Quality: Stroke Does the patient have a stroke diagnosis?: No Physical Exam Vital Signs: Vital Signs: Last Vital Signs Temp 97.3 F 04/04/22 11:01 Pulse 69 04/04/22 11:01 Resp 16 04/04/22 11:01 BP 152/81 H 04/04/22 11:01 Pulse Ox 99 04/04/22 11:01 O2 Del Method 04/04/22 11:01 BMI result Body Mass Index 23.3 Const: Other: Constitutional : Alert, oriented, not in distress Neck : Normal inspection, Supple Cardiovascular : RRR, no JVP, no lower extremity edema Respiratory : fair bilateral air entry, no crackles, wheezes or rhonchi Gastrointestinal: soft, lax, Normal bowel sounds, Non tender Skin : Warm, Dry, decreased sensation at the palmar side of his feet, big toe right foot Decreased swelling with no significant drainage or pain Neurological : Alert & oriented x3, No focal deficit , CN 2-12 within normal DS: Data Data Completed and Pending Labs on day of discharge: Laboratory Results - last 24 hr 04/03/22 04/03/22 04/03/22 13:46 14:02 15:24 POC Glucose 90 114 COVID-19 (HA) Negative COVID-19 Clin Com See Note 04/03/22 04/04/22 04/04/22 19:13 06:52 11:02 POC Glucose 100 86 111 COVID-19 (HA) COVID-19 Clin Com Preliminary micro results at discharge 03/31/22 19:52 Blood Culture - Preliminary Blood - Venous No growth after 48 hours. 03/31/22 19:51 Blood Culture - Preliminary Blood - Venous No growth after 48 hours. Discharge Plan Discharge Patient Disposition: er [facility] Discharge Diagnosis: Osteomyelitis of great toe Referrals: Naina Perera [Primary Care Provider] - 1 Week Discharge Medications: New cefazolin in dextrose (iso-os) 2 gram/50 mL Piggyback 2 g IV Q8H Qty: 234 0RF Continued furosemide 40 mg tablet 1 tab PO DAILY atorvastatin 80 mg tablet 1 tab PO QAM metoprolol succinate 50 mg tablet extended release 24 hr 1 tab PO QAM isosorbide mononitrate 30 mg tablet extended release 24 hr 1 tab PO QAM aspirin 81 mg tablet,delayed release (DR/EC) 1 tab PO QAM metformin 500 mg tablet extended release 24 hr 2 tab PO BID ezetimibe 10 mg tablet 1 tab PO DAILY insulin glargine [Lantus Solostar U-100 Insulin] 100 unit/mL (3 mL) insulin pen 26 unit subcut BEDTIME cholecalciferol (vitamin D3) 50 mcg (2,000 unit) capsule 1 cap PO QAM Jardiance 25 mg tablet 1 tab PO DAILY Discharge Orders: Discharge Order (Routine); Ordered 04/04/22 Ordered By: Ivelisse Uriarte Diet: Diabetic diet Activity on Discharge: As tolerated Stand Alone Forms: Patient Portal Discharge page Care Plan Goals: Read below Health Concerns: Read below Plan of Treatment: Read below Assessment: you were admitted to the hospital for evaluation of right big toe swelling. X-ray of the for showed an evidence of cyst and bone infection. Evaluated by surgery who did aspiration of the wound. Cultures show methicillin sensitive Staph aureus. Treated with IV antibiotics of cefazolin. PICC line was placed to continue treatment of total of 6 weeks of IV antibiotics for osteomyelitis.
--- NOTE | 2022-04-04 12:16 | MHC.CM.PN ---
PATIENT TO TRANSFER TO [facility] VIA FAMILY TRANSPORT. SON TO ARRIVE FOR 1530 FOR A 1600 ADMIT TO FACILITY. [facility] REQUEST CANCELLED. IMM 04/03 IN CHART RN AND UNIT AWARE OF THE PLAN.
== END 2022-04-04 15:30 | disposition skilled nursing facility (03) | DRG 638 ==
LOC: HO.ED 19:53 → HO.EDOVER 20:51 → HO.S3 04-01 01:10
PROVIDERS: Physician Assistant Medical; Admitting Provider Internal Medicine; Emergency Provider Emergency Medicine; PCP Nurse Practitioner Family; Visit Provider Student in an Organized Health Care Education/Training Program
DX: E11.69 Type 2 diabetes mellitus with other specified complication (principal); L02.611 Cutaneous abscess of right foot; M86.171 Other acute osteomyelitis, right ankle and foot; I10 Essential (primary) hypertension; L29.9 Pruritus, unspecified; T36.8X5A Adverse effect of other systemic antibiotics, initial encounter; B95.61 Methicillin susceptible Staphylococcus aureus infection as the cause of diseases classified elsewhere; E11.40 Type 2 diabetes mellitus with diabetic neuropathy, unspecified; D72.819 Decreased white blood cell count, unspecified; I25.10 Atherosclerotic heart disease of native coronary artery without angina pectoris; Z20.822 Contact with and (suspected) exposure to COVID-19; Z88.0 Allergy status to penicillin; Z79.4 Long term (current) use of insulin; Z79.82 Long term (current) use of aspirin; Z79.84 Long term (current) use of oral hypoglycemic drugs; Z79.899 Other long term (current) drug therapy
CPT/HCPCS: 36415; 36573; 73630; 80048; 80053; 82947; 83605; 83735; 85025; 85610; 85652; 86140; 87040; 87071; 87077; 87186; 87205; 87635; 93926; 93971; 97162; 99285; C1751; J0690; J0692; J0696; J1650; J3370

== ENCOUNTER 2022-04-23 07:57 | Outpatient (RCR) | payer MEDICARE, MEDICAID, SELFPAY | END 2022-04-27 08:48 | disposition home or self-care (01) | LOC: HO.WCC 07:57 | PROVIDERS: PCP Nurse Practitioner Family; Visit Provider Physician Assistant | DX: E11.621 Type 2 diabetes mellitus with foot ulcer (principal); L97.519 Non-pressure chronic ulcer of other part of right foot with unspecified severity; E11.69 Type 2 diabetes mellitus with other specified complication; M86.471 Chronic osteomyelitis with draining sinus, right ankle and foot; E11.42 Type 2 diabetes mellitus with diabetic polyneuropathy; I10 Essential (primary) hypertension; Z79.2 Long term (current) use of antibiotics | CPT/HCPCS: 99213 ==

== ENCOUNTER 2022-05-30 09:36 | Outpatient (REF) | payer MEDICARE, MEDICAID, SELFPAY ==
[2022-05-30 09:51] LABS: MANUAL DIFF FLAG NO
[2022-05-30 10:19] LABS: Basophils Percent Auto 0.3 % (0-2); Eosinophils Absolute Auto 0.1 X10*3/uL (0.0-0.4); Eosinophils Percent Auto 2.7 % (0-4); Hematocrit 40.6 % (42.0-52.0); Hemoglobin 12.9 g/dl (14.0-18.0); Imm Gran Abs Auto 0.01 X10*3/uL (0.00-0.03); Imm Gran Pct Auto 0.3 % (0.0-0.4); Lymphocytes Absolute Auto 0.7 X10*3/uL (1.2-4.9); Lymphocytes Percent Auto 20.2 % (20-40); Mean Corpuscular HGB Conc 31.8 g/dl (31.0-36.0); Mean Corpuscular Hemoglobin 27.9 pg (27.0-33.0); Mean Corpuscular Volume 87.9 fL (80.0-98.0); Mean Platelet Volume 10.3 fL (9.4-12.4); Monocytes Absolute Auto 0.4 X10*3/uL (0.1-1.2); Monocytes Percent Auto 10.6 % (2-11); Neutrophils Absolute Auto 2.4 x10*3/uL (2.0-8.3); Neutrophils Percent Auto 65.9 % (45-73); Platelet Count 156 X10*3/uL (160-400); Red Blood Count 4.62 X10*6/uL (4.60-5.80); Red Cell Distribution Width 12.5 % (11.0-16.0); White Blood Count 3.7 X10*3/uL (4.8-10.8)
[2022-05-30 10:36] LABS: Estimated Average Glucose 146 mg/dL; Hemoglobin A1c % 6.7 %
[2022-05-30 10:37] LABS: Appearance Urine Clear; Color Urine Yellow; Glucose Urine UA Negative (Negative); Leukocyte Esterase Urine Negative (Negative); Nitrite Urine Negative (Negative); Urine Blood Negative (Negative); Urine Ketones Negative (Negative); Urine Protein Negative (Neg-Trace)
[2022-05-30 10:40] LABS: Anion Gap 15 (12-20); Blood Urea Nitrogen 14 mg/dL (9-16); Calcium 9.7 mg/dL (8.4-10.2); Carbon Dioxide 25 mmol/L (22-29); Chloride 103 mmol/L (96-108); Estimated Glomerular Filt Rate > 60; Iron 96 mcg/dL (45-160); Percent Iron Saturation 36 % (15-50); Potassium 4.4 mmol/L (3.3-5.1); Sodium 139 mmol/L (135-145); Total Iron Binding Capacity 270 mcg/dL (228-428); Unsaturated Iron Binding 174 ug/dL
[2022-05-30 10:41] LABS: Bacteria Urine None Seen (None Seen); Hyaline Casts Urine 0-2 /LPF (0-2); RBC Urine 0-2 /HPF (0-2); Squamous Epithelial Cell Urine 0-2 /HPF (0-2); WBC Urine 0-5 /HPF (0-5)
[2022-05-30 11:02] LABS: Vitamin D 25-OH Total 26.8 ng/mL (>30)
[2022-05-30 18:44] LABS: Creatinine Urine 137.55 mg/dL; Protein/Creatinine Ratio, Ur 0.06 (<0.2); Total Protein Urine Random 8 mg/dL (<12)
[2022-05-31 12:22] LABS: Calcium (PTHI) 9.8 mg/dL (8.6-10.3); PTHI 41 pg/mL (16-77)
== END 2022-05-30 09:37 | disposition home or self-care (01) ==
LOC: HO.LAB 09:36
PROVIDERS: Visit Provider Internal Medicine Nephrology
DX: I12.9 Hypertensive chronic kidney disease with stage 1 through stage 4 chronic kidney disease, or unspecified chronic kidney disease (principal); E11.22 Type 2 diabetes mellitus with diabetic chronic kidney disease; N18.2 Chronic kidney disease, stage 2 (mild)
CPT/HCPCS: 36415; 80051; 81001; 82306; 82310; 82565; 83036; 83540; 83970; 84156; 84520; 85025

== ENCOUNTER 2022-08-05 09:51 | Emergency (ER) | payer MEDICARE, MEDICAID, SELFPAY ==
[2022-08-05 09:58] VITALS: BP 142/73; PULSE 79; RESP 18; TEMP 35.8; O2SAT 99
--- NOTE | 2022-08-05 10:48 | ED_ITS ---
HPI - General Adult General Chief complaint: Wound/Laceration Stated complaint: Wrist lac Time Seen by Provider: 08/05/22 10:30 Source: patient Mode of arrival: ambulatory Limitations: no limitations History of Present Illness HPI narrative: 61-year-old male history of diabetes presents to ED for right wrist laceration. Patient states he was cleaning dishes include a knife any cut himself by accident. Patient states complete range of motion. Patient denies any other symptoms or trauma Related Data Home Medications Medication Instructions Recorded Confirmed aspirin 81 mg tablet,delayed 1 tab PO QAM 03/31/22 03/31/22 release atorvastatin 80 mg tablet 1 tab PO QAM 03/31/22 03/31/22 cholecalciferol (vitamin D3) 50 1 cap PO QAM 03/31/22 03/31/22 mcg (2,000 unit) capsule empagliflozin 25 mg tablet 1 tab PO DAILY 03/31/22 04/01/22 (Jardiance) furosemide 40 mg tablet 1 tab PO DAILY 03/31/22 04/01/22 insulin glargine 100 unit/mL (3 26 unit subcut BEDTIME 03/31/22 03/31/22 mL) subcutaneous pen (Lantus Solostar U-100 Insulin) isosorbide mononitrate 30 mg 1 tab PO QAM 03/31/22 03/31/22 tablet,extended release 24 hr metformin 500 mg tablet,extended 2 tab PO BID 03/31/22 04/01/22 release 24 hr metoprolol succinate 50 mg 1 tab PO QAM 03/31/22 03/31/22 tablet,extended release 24 hr Previous Rx's Medication Instructions Recorded cefazolin 2 gram/50 mL in dextrose 2 g (50 mL) IV Q8H #234 grams 04/04/22 (iso-osmotic) intravenous piggyback ezetimibe 10 mg tablet 10 mg PO QPM #90 tabs 05/21/22 clindamycin HCl 300 mg capsule 300 mg PO TID 10 days #30 caps 08/05/22 Allergies Allergy/AdvReac Type Severity Reaction Status Date / Time piperacillin [From ZOSYN] Allergy Mild RASH Verified 03/31/22 15:53 tazobactam [From ZOSYN] Allergy Mild RASH Verified 03/31/22 15:53 vancomycin Allergy Itching Verified 03/31/22 21:58 Review of Systems Review of Systems: Right wrist laceration Yes all other systems are reviewed and are negative [facility] Past Medical History Medical History Atherosclerotic cardiovascular disease Diabetes High cholesterol HTN (hypertension) Other and unspecified hyperlipidemia Type 2 diabetes mellitus with unspecified complications Surgical History History of incision and drainage (~12/2017) Family History Family History Father Liver disease Mother Diabetes Heart attack Sister Diabetes Kidney disease Stomach cancer Social History Social History Household Members: None Housing: Apartment Are you a primary manager long term care to a significant other at home: No Do you presently have visiting nurse or other home services: No Alcohol intake: former Patient Tobacco Use Status: Never used Tobacco Advance Directives: No Advance Directives Information Provided: No service: No Current occupational status: disabled Physical Exam ED Vital Signs: Vital Signs - 24 hr 08/05/22 09:58 08/05/22 10:58 Temperature 96.5 F L 96.5 F L Pulse Rate 79 79 Respiratory Rate 18 18 Blood Pressure 142/73 H 142/73 H Pulse Oximetry 99 99 Oxygen Delivery Method Room Air Room Air BMI result Body Mass Index 23.1 Const General: cooperative, healthy appearing, comfortable, no acute distress, well developed, alert and awake Orientation/consciousness: oriented to person, oriented to place, oriented to time and patient oriented x3 HENMT Head: Yes normal to inspection, Yes No palpable skull fracture present, Yes normocephalic, Yes atraumatic and No abrasion Eyes General: appearance normal, both eyes and all related structures Neck Neck: Yes normal visual inspection, Yes full ROM, Yes no lymphadenopathy, Yes no meningeal signs, Yes trachea midline, Yes supple, No anterior neck swelling and No tender Chest Chest palpation & inspection: normal inspection of the chest and normal palpation of entire chest wall Resp Effort & Inspection: normal respiratory effort and able to speak in complete sentences Auscultation: clear to auscultation bilaterally Cardio Jugular venous distension: no JVD Heart sounds: S1 normal heart sound present and S2 normal heart sound present GI Inspection: Yes normal to inspection and No abdominal wall ecchymosis Palpation (GI): Soft to palpation, not firm, nontender, no guarding and not rigid General: No CVA tenderness and Yes no CVA tenderness Back/Spine/Pelvis Back: no CVA tenderness, No CVA tenderness and No back tenderness Skin General skin exam: no rashes or lesions noted and elasticity normal Neuro General: oriented to person, oriented to place, oriented to time, patient oriented x3, gait normal, tone normal, moves all extremities, Normal light touch and pain sensation, no meningeal signs, no focal motor deficits, CN's II-XI intact bilaterally, normal sensation to monofilament and deep tendon reflexes 2+ bilaterally Cranial nerves: Yes CN's II-XII intact bilaterally Gait exam (Neuro): Normal gait present Motor exam (neuro): 5/5 motor strength present throughout Sensory Exam: Normal double simultaneous stimulation for sensation Extrem Hand/finger images: 1. Small laceration with active bleeding. Patient able to flex and extend finger. No obvious tendon injury or nerve injury. No tendon exposed. Motor/neuro/vascular exam intact. No signs of wrist drop Psych Appearance: grossly normal, well kempt and not disheveled Course Course Course Narrative: Will perform laceration repair Reevaluation(s) Reevaluation #1: Wound clean with sterile saline Betadine iodine. Lidocaine 1% 5 mL was used for anesthesia. Size 3 nylon sutures were used. Three stitches were placed. History of diabetes will discharge with antibiotics to prevent infection. Patient up-to-date with tetanus Time: 11:49 Medications Administered Discontinued Medications Generic Name Dose Route Start Last Admin Trade Name Shavon PRN Reason Stop Dose Admin Lidocaine HCl 2 ml 08/05/22 10:39 08/05/22 11:05 Lidocaine Hcl 1 % Mpf 2 Ml Vial INFILTRATI 08/05/22 10:40 2 ml ONCE ONE Administration Lidocaine HCl 2 ml 08/05/22 10:39 08/05/22 11:05 Lidocaine Hcl 1 % Mpf 2 Ml Vial INFILTRATI 08/05/22 10:40 2 ml ONCE ONE Administration Lidocaine HCl 2 ml 08/05/22 10:43 08/05/22 11:05 Lidocaine Hcl 1 % Mpf 2 Ml Vial INFILTRATI 08/05/22 10:44 2 ml ONCE ONE Administration Medical Decision Making [facility] Narrative Medical decision making narrative: 61-year-old male with wrist laceration with no signs of tendon or nerve injury. Laceration repaired. Tetanus up-to-date. Will discharge with antibiotics to prevent infection due to history of diabetes. No admission needed Discharge Plan Discharge Clinical Impression: Laceration Patient Disposition: Home, Self-Care Instructions: Laceration (ED) Additional Instructions: Tendr?n que quitarle las suturas en 9 a 11 d?as en la vivian de emergencias. Regrese al servicio de urgencias inmediatamente si aumenta la hinchaz?n, enrojecimiento, decoloraci?n natalie azulada, incapacidad para flexionar y supervisor roller printing la mu?eca, incapacidad para audio visual tech los dedos, fiebre, escalofr?os, entumecimiento o cualquier otro s?ntoma preocupante. Por favor, bandar un seguimiento del proveedor de atenci?n primaria. Mantenga las suturas secas y vendaje las primeras 24-48 horas. Prescriptions: New clindamycin HCl 300 mg capsule 300 mg PO TID 10 Days Qty: 30 0RF No Action ezetimibe 10 mg tablet 10 mg PO QPM Qty: 90 3RF furosemide 40 mg tablet 1 tab PO DAILY atorvastatin 80 mg tablet 1 tab PO QAM metoprolol succinate 50 mg tablet extended release 24 hr 1 tab PO QAM isosorbide mononitrate 30 mg tablet extended release 24 hr 1 tab PO QAM aspirin 81 mg tablet,delayed release (DR/EC) 1 tab PO QAM metformin 500 mg tablet extended release 24 hr 2 tab PO BID insulin glargine [Lantus Solostar U-100 Insulin] 100 unit/mL (3 mL) insulin pen 26 unit subcut BEDTIME cholecalciferol (vitamin D3) 50 mcg (2,000 unit) capsule 1 cap PO QAM Jardiance 25 mg tablet 1 tab PO DAILY cefazolin in dextrose (iso-os) 2 gram/50 mL Piggyback 2 g IV Q8H Qty: 234 0RF Interventions: ED Discharge Assessment Last Done: 08/05/22 12:02 Discharge Date/Time: 08/05/22 12:03 Print Language: British
[2022-08-05 10:58] VITALS: BP 142/73; PULSE 79; RESP 18; TEMP 35.8; O2SAT 99; BMI 23.1
[2022-08-05] MEDS: Lidocaine HCl 1 % MPF 2 ML VIAL INFILTRATI ×3 (11:05)
== END 2022-08-05 12:03 | disposition home or self-care (01) ==
PROVIDERS: Emergency Provider Emergency Medicine
DX: S61.511A Laceration without foreign body of right wrist, initial encounter (principal); W26.0XXA Contact with knife, initial encounter; Y93.9 Activity, unspecified; Y92.9 Unspecified place or not applicable; Y99.9 Unspecified external cause status
CPT/HCPCS: 12001; 99282; 99284

== ENCOUNTER 2022-08-15 09:57 | Emergency (ER) | payer MEDICARE, MEDICAID, SELFPAY ==
--- NOTE | 2022-08-15 10:21 | ED.SKABFB ---
HPI - Skin/Abscess/Foreign Bdy General Stated complaint: stitch removal Time Seen by Provider: 08/15/22 10:14 Source: patient Mode of arrival: ambulatory Limitations: language barrier History of Present Illness HPI narrative: 61-year-old Citizen Of [place]-speaking male with a PMH of diabetes presents to the emergency department today for suture removal on right central volar wrist. He states he was cleaning dishes and a knife cut him by accident. Wound was closed with 3 sutures and pt was put on 10 day course of Clindamycin, which he states he completed fully. He reports the area around his laceration became reddened three days after the laceration and has proceeded to turn a darker color. He denies any purulent drainage, fever, chills, or difficulty moving his wrist/hand. Related Data Home Medications Medication Instructions Recorded Confirmed aspirin 81 mg tablet,delayed 1 tab PO QAM 03/31/22 03/31/22 release atorvastatin 80 mg tablet 1 tab PO QAM 03/31/22 03/31/22 cholecalciferol (vitamin D3) 50 1 cap PO QAM 03/31/22 03/31/22 mcg (2,000 unit) capsule empagliflozin 25 mg tablet 1 tab PO DAILY 03/31/22 04/01/22 (Jardiance) furosemide 40 mg tablet 1 tab PO DAILY 03/31/22 04/01/22 insulin glargine 100 unit/mL (3 26 unit subcut BEDTIME 03/31/22 03/31/22 mL) subcutaneous pen (Lantus Solostar U-100 Insulin) isosorbide mononitrate 30 mg 1 tab PO QAM 03/31/22 03/31/22 tablet,extended release 24 hr metformin 500 mg tablet,extended 2 tab PO BID 03/31/22 04/01/22 release 24 hr metoprolol succinate 50 mg 1 tab PO QAM 03/31/22 03/31/22 tablet,extended release 24 hr Previous Rx's Medication Instructions Recorded cefazolin 2 gram/50 mL in dextrose 2 g (50 mL) IV Q8H #234 grams 04/04/22 (iso-osmotic) intravenous piggyback ezetimibe 10 mg tablet 10 mg PO QPM #90 tabs 05/21/22 clindamycin HCl 300 mg capsule 300 mg PO TID 10 days #30 caps 12/04/22 Allergies Allergy/AdvReac Type Severity Reaction Status Date / Time piperacillin [From ZOSYN] Allergy Mild RASH Verified 03/31/22 15:53 tazobactam [From ZOSYN] Allergy Mild RASH Verified 03/31/22 15:53 vancomycin Allergy Itching Verified 03/31/22 21:58 Review of Systems Review of Systems: In addition to documented HPI above, the additional ROS was obtained: Constitutional: No Fever, No Chills Cardiovascular: No Chest Pain, No SOB Respiratory: No Cough, No Sputum, No Wheezing Musculoskeletal: No joint pain, No Myalgias, No Joint Swelling Skin: No Skin Lesions, No rash Neuro: No Weakness, No Numbness, No Paresthesias Yes all other systems are reviewed and are negative [facility] [place] Past Medical History Attestation statement: The following information was validated with the patient. Source: old records reviewed and obtained from family Medical History Atherosclerotic cardiovascular disease Diabetes High cholesterol HTN (hypertension) Leucopenia Other and unspecified hyperlipidemia Type 2 diabetes mellitus with unspecified complications Surgical History History of incision and drainage (~12/2017) Family History Family History Father Liver disease Mother Diabetes Heart attack Sister Diabetes Kidney disease Stomach cancer Social History Social History Household Members: None Housing: Apartment Are you a primary customer care assistant to a significant other at home: No Do you presently have visiting nurse or other home services: No Alcohol intake: former Patient Tobacco Use Status: Never used Tobacco Advance Directives: Yes Advance Directives on File: Yes Advance Directives Date on File: 04/05/22 service: No Current occupational status: disabled Physical Exam Const: General: cooperative, alert and awake Nutritional Appearance: average body habitus Orientation/consciousness: patient oriented x3 Limitations: language barrier Resp: Effort & Inspection: not labored Auscultation: clear to auscultation bilaterally Cardio: Rate: regular rate Rhythm: regular rhythm Skin: Lesions: no lesions Rashes: no rashes Trauma: laceration (right central volar aspect of wrist; healing) Neuro: General: patient oriented x3 Extrem: General: Yes normal to inspection, Yes full ROM and Yes capillary refill normal Medical Decision Making Medical Decision Making MDM Narrative: 61-year-old Citizen Of [place]-speaking male with a PMH of diabetes presents to the emergency department today for suture removal for a laceration on right central volar wrist that he sustained while he accidentally cut himself with a knife cleaning dishes. 3 sutures removed without difficulty. Wound approximated, however; due to history of diabetes and color changes of tissue at laceration, recommendation to follow up with wound care to ensure full, proper healing. Educate to return to the emergency department with redness, swelling, warmth, drainage, fever, chills or any other emergency concerns. Recommended to follow up with his primary care provider. Procedures Procedure Narrative Procedure Narrative: Laceration site cleansed with betadine. 3 sutures removed without issue. Would approximated without drainage or warmth. Pt tolatered well Discharge Plan Discharge Clinical Impression: Encounter for removal of sutures Patient Disposition: Home, Self-Care Instructions: Stitches Removal (ED) Additional Instructions: Recommended that you follow up with wound care to ensure full, proper healing and your primary care provider. Please return to the emergency department with redness, swelling, warmth, drainage, fever, chills or any other emergency concerns. Prescriptions: No Action ezetimibe 10 mg tablet 10 mg PO QPM Qty: 90 3RF clindamycin HCl 300 mg capsule 300 mg PO TID 10 Days Qty: 30 0RF furosemide 40 mg tablet 1 tab PO DAILY atorvastatin 80 mg tablet 1 tab PO QAM metoprolol succinate 50 mg tablet extended release 24 hr 1 tab PO QAM isosorbide mononitrate 30 mg tablet extended release 24 hr 1 tab PO QAM aspirin 81 mg tablet,delayed release (DR/EC) 1 tab PO QAM metformin 500 mg tablet extended release 24 hr 2 tab PO BID insulin glargine [Lantus Solostar U-100 Insulin] 100 unit/mL (3 mL) insulin pen 26 unit subcut BEDTIME cholecalciferol (vitamin D3) 50 mcg (2,000 unit) capsule 1 cap PO QAM Jardiance 25 mg tablet 1 tab PO DAILY cefazolin in dextrose (iso-os) 2 gram/50 mL Piggyback 2 g IV Q8H Qty: 234 0RF Referrals: [facility] [Primary Care Provider] - Betzy Donnelly MD [Physician] - Print Language: Citizen Of [place]
== END 2022-08-15 10:52 | disposition home or self-care (01) ==
PROVIDERS: Emergency Provider Student in an Organized Health Care Education/Training Program
DX: Z48.02 Encounter for removal of sutures (principal); S61.511D Laceration without foreign body of right wrist, subsequent encounter; W26.0XXD Contact with knife, subsequent encounter
CPT/HCPCS: 99283

== ENCOUNTER 2022-09-11 12:43 | Outpatient (REF) | payer MEDICARE, MEDICAID, SELFPAY ==
--- NOTE | ~2022-09-11 | XR_ITS ---
EXAMINATION: XR FOOT, RIGHT CLINICAL INFORMATION: Open wound right foot. COMPARISON: Radiographs right foot 03/31/2022 TECHNIQUE: Right foot is imaged in 3 views. FINDINGS: There are chronic appearing changes in the right foot with no visible acute bony destructive process or periostitis or gas tracking in the soft tissues. No acute or healing fracture or dislocation. Again, there are posterior and plantar calcaneal spurs and spurring from the midfoot and scattered atherosclerotic calcifications vasculature. The forefoot again shows medial bunion first MTP and degenerative changes. XR/XR foot RT min 3V IMPRESSION: -No acute bony destructive process, periostitis, or gas tracking in soft tissues. -Chronic appearing changes similar to prior exams.
== END 2022-09-11 12:44 | disposition home or self-care (01) ==
LOC: HO.XRAY 12:43
PROVIDERS: Visit Provider Emergency Medicine
DX: S91.101A Unspecified open wound of right great toe without damage to nail, initial encounter (principal)
CPT/HCPCS: 73630

== ENCOUNTER → 2023-02-07 08:59 | Outpatient (BNVA) | payer MEDICARE, MEDICAID, SELFPAY | PROVIDERS: PCP Registered Nurse; Referring Provider Registered Nurse; Visit Provider Internal Medicine | DX: I25.10 Atherosclerotic heart disease of native coronary artery without angina pectoris (principal); E78.5 Hyperlipidemia, unspecified; E11.8 Type 2 diabetes mellitus with unspecified complications | CPT/HCPCS: 93005; 99212 ==

== ENCOUNTER 2023-02-21 10:03 | Outpatient (REF) | payer MEDICARE, MEDICAID, SELFPAY ==
[2023-02-21 12:31] LABS: Cholesterol 175 mg/dL; HDL Cholesterol 47 mg/dL; LDL Cholesterol Calculated 112 mg/dl; Triglycerides 82 mg/dL
[2023-02-23 04:19] LABS: LDL Cholesterol Direct 111 mg/dL (<100)
== END 2023-02-21 10:04 | disposition home or self-care (01) ==
LOC: HO.LAB 10:03
PROVIDERS: PCP Registered Nurse; Visit Provider Internal Medicine
DX: I25.10 Atherosclerotic heart disease of native coronary artery without angina pectoris (principal); E78.2 Mixed hyperlipidemia
CPT/HCPCS: 36415; 80061; 83721

== ENCOUNTER 2023-02-22 10:14 | Outpatient (REF) | payer MEDICARE, MEDICAID, SELFPAY ==
[2023-02-22 10:31] LABS: MANUAL DIFF FLAG NO
[2023-02-22 10:45] LABS: Basophils Percent Auto 0.3 % (0-2); Eosinophils Absolute Auto 0.1 X10*3/uL (0.0-0.4); Eosinophils Percent Auto 2.6 % (0-4); Hematocrit 45.4 % (42.0-52.0); Hemoglobin 14.8 g/dl (14.0-18.0); Imm Gran Abs Auto 0.01 X10*3/uL (0.00-0.03); Imm Gran Pct Auto 0.3 % (0.0-0.4); Lymphocytes Percent Auto 28.4 % (20-40); Mean Corpuscular HGB Conc 32.6 g/dl (31.0-36.0); Mean Corpuscular Hemoglobin 28.3 pg (27.0-33.0); Mean Corpuscular Volume 86.8 fL (80.0-98.0); Mean Platelet Volume 10.3 fL (9.4-12.4); Monocytes Absolute Auto 0.3 X10*3/uL (0.1-1.2); Monocytes Percent Auto 9.7 % (2-11); Neutrophils Absolute Auto 2.1 x10*3/uL (2.0-8.3); Neutrophils Percent Auto 58.7 % (45-73); Platelet Count 170 X10*3/uL (160-400); Red Blood Count 5.23 X10*6/uL (4.60-5.80); White Blood Count 3.5 X10*3/uL (4.8-10.8)
[2023-02-22 10:57] LABS: Estimated Average Glucose 166 mg/dL; Hemoglobin A1c % 7.4 %
[2023-02-22 11:46] LABS: Appearance Urine Clear; Color Urine Yellow; Glucose Urine UA Negative (Negative); Leukocyte Esterase Urine Negative (Negative); Nitrite Urine Negative (Negative); PH 5.5 (5.0-9.0); Specific Gravity - Urine 1.015 (1.005-1.025); Urine Blood Negative (Negative); Urine Ketones Negative (Negative); Urine Protein Negative (Neg-Trace)
[2023-02-22 12:18] LABS: Creatinine Urine 155.09 mg/dL; Total Protein Urine Random < 7 mg/dL (<12)
[2023-02-22 14:24] LABS: Anion Gap 12 (12-20); Blood Urea Nitrogen 19 mg/dL (9-16); Calcium 10.5 mg/dL (8.4-10.2); Carbon Dioxide 28 mmol/L (22-29); Chloride 103 mmol/L (96-108); Cholesterol 186 mg/dL; Estimated Glomerular Filt Rate > 60; HDL Cholesterol 46 mg/dL; Iron 109 mcg/dL (45-160); LDL Cholesterol Calculated 124 mg/dl; Percent Iron Saturation 37 % (15-50); Potassium 4.3 mmol/L (3.3-5.1); Sodium 139 mmol/L (135-145); Total Iron Binding Capacity 296 mcg/dL (228-428); Triglycerides 82 mg/dL; Unsaturated Iron Binding 187 ug/dL
[2023-02-22 14:40] LABS: Vitamin D 25-OH Total 29.9 ng/mL (>30)
[2023-02-25 14:32] LABS: Calcium (PTHI) 10.2 mg/dL (8.6-10.3); PTHI 56 pg/mL (16-77)
== END 2023-02-22 10:15 | disposition home or self-care (01) ==
LOC: HO.LAB 10:14
PROVIDERS: PCP Registered Nurse; Visit Provider Physician Assistant
DX: N18.2 Chronic kidney disease, stage 2 (mild) (principal); E55.9 Vitamin D deficiency, unspecified; E11.22 Type 2 diabetes mellitus with diabetic chronic kidney disease
CPT/HCPCS: 36415; 80051; 80061; 81003; 82306; 82310; 82565; 83036; 83540; 83970; 84156; 84520; 85025

== ENCOUNTER → 2023-02-28 08:02 | Outpatient (REF) | payer MEDICARE, MEDICAID, SELFPAY ==
--- NOTE | 2023-02-28 08:04 | CA_ITS ---
Acquisition Time: 2023-02-28 08:56:49 Total Exercise Time: 00:06:35 Test Indications: CAD, CP Medications: SEE H Protocol: TRISH Max HR: 146 BPM 92% of Pred: 158 BPM Max BP: 150/078 mmHG Max Work Load: 5.1 METS Exercise stress test exercise 6 min 35 sec of Trish protocol (stage 1. at 3 min incline to 12%) achieving 91% MPHR, without anignal symptoms, with isolated PVCs, one ventricular cuplet, with normotensive response and brisk chronotropic response to exercise, without EKG changes meeting criteria for ischemia. Nuclear images pending. Test reviewed with Dr. Mancini. Referred By: Cecil Ramirez Overread By: LOU SANTANA
--- NOTE | 2023-02-28 08:04 | CA_ITS ---
Transthoracic Echocardiogram Patient (Last, First, Middle): Néstor Chamorro L Gender: Male Date of : 1960 Age: 62 Procedure Date: 02/28/2023 Procedure Type: Transthoracic Echocardiogram Location: OP Height: 182.88 cm Weight: 78.02 kg BSA: 2.00 m2 Heart Rate: bpm BP: 140 / 82 mmHg Roll Icer Machine: TO Referring MD: Cecil Ramirez MD Audit Analyst: Leo Leblanc MD Symptoms: I25.10 - Atherosclerotic heart disease of [place] coronary artery without... Study Quality: Adequate ECG Rhythm: Sinus Conclusions: - Normal study Findings Left Ventricle Normal left ventricular size, thickness, and systolic function. The visually estimated ejection fraction is between 55-60%. Spectral Doppler is indicative of a normal filling pattern. Peak GLS is -18.3%, within normal limits. Right Ventricle Normal right ventricular cavity size and systolic function. Atria Both atria are normal in size. There is no evidence of interatrial shunt. Aortic Valve Normal aortic valve structure and function. There is no aortic valve stenosis. There is no aortic valve regurgitation. Mitral Valve Normal mitral valve structure and function. There is trace mitral valve regurgitation. There is no mitral valve stenosis. Pulmonic Valve The pulmonic valve is likely normal. Tricuspid Valve Normal tricuspid valve structure. There is trace tricuspid valve regurgitation. The right ventricular systolic pressure is normal. The right ventricular systolic pressure is 32 mmHg. Normal right atrial pressure. There is no evidence of pulmonary hypertension. Great Vessels All visible segments of the aorta are normal in size. The pulmonary artery was not well visualized. Venous The inferior vena cava is normal in size and collapses greater than 50% with inspiration. Pericardium/Pleural There is no evidence of pericardial effusion. Measurements 2D Linear Measurements IVSd: 1.13 0.6-0.9/0.6-1.0 cm LVIDd: 4.53 3.9-5.3/4.2-5.9 cm LVIDd Index: 2.27 2.4-3.2/2.2-3.1 cm/m2 LVIDs: 2.99 2.0-3.6 cm LVPWd: 0.87 0.7-1.1 cm LA Diam: 3.60 2.7-3.8/3.0-4.0 cm LAIDs Index: 1.80 1.5-2.3 cm/m2 LV Mass: 192.77 67-162/88-224 g LV Mass Index: 96.39 43-95/49-115 g/m2 LVOT Diam: 2.30 3.0+(-)1.3 cm 2D Systolic Function EF 4C: 56.60 >55% EF 2C: 56.00 >55% EF BiP: 56.90 >55% Mitral Valve MV Pk E: 0.71 MV PK A: 0.48 MV Decel Time: 225.00 E/A: 1.50 E'Lateral: 12.30 E'Medial: 10.00 E/E' Med: 7.10 E/E' Lat: 5.70 PHT: 63.00 MVA PHT: 3.49 Decel [place]: 3.25 Aortic Valve AoV Pk Spencer: 1.29 AoV Mn Spencer: 0.89 AoV VTI: 0.30 AoV Pk Grad: 7.00 Aov Mn Grad: 4.00 TRACEY Cont.VTI: 2.20 LVOT LVOT Pk Spencer: 0.71 LVOT Mn Spencer: 0.45 LVOT VTI: 0.16 LVOT Pk Grad: 2.00 LVOT Mn Grad: 1.00 LVOT Diam: 2.30 LVOT Area: 4.15 Diastolic Function MV Pk E: 0.71 MV Pk A: 0.48 E/A: 1.50 E'Medial: 10.00 E/E' Med: 7.10 E' Laterial: 12.30 E/E' Lat: 5.70 Right Ventricle TAPSE (mm): 23.50 TVS' Spencer: 13.40 Tricuspid Valve TR Pk Spencer: 2.47 TR Pk Grad: 24.00 RA Press: 8.00 RVSP: 32.00 Great Vessels Aorta Sinus of Valsalva: 3.46 2.0-3.[address] [place]: 2.48 1.7-3.4 cm Ao Asc: 3.00 2.1-3.4 cm Updated in Other Vendor System with Status of Final Leo Leblanc MD electronically signed on 02/28/2023 3:29:19 PM with status of Final
== END ==
LOC: HO.CARD 08:02
PROVIDERS: PCP Registered Nurse; Visit Provider Internal Medicine
DX: R07.2 Precordial pain (principal); I25.10 Atherosclerotic heart disease of native coronary artery without angina pectoris
CPT/HCPCS: 78452; 93017; 93306; 93356; A9500

== ENCOUNTER 2023-03-21 16:07 | Emergency (ER) | payer OTHER, SELFPAY ==
--- NOTE | ~2023-03-21 | XR_ITS ---
EXAMINATION: 1. Thoracic spine. 2. Lumbar spine CLINICAL INFORMATION: Back pain COMPARISON: CT chest 04/24/2018. Ultrasound of kidneys 08/21/2017 TECHNIQUE: 1. Thoracic spine. 2 views 2. Lumbar spine. 3 views FINDINGS: 1. Thoracic spine. Thoracic vertebrae have normal height and normal alignment. No fracture or bone destruction. There is multilevel degenerative spondylosis of thoracic disc height narrowing and vertebral endplate spurs. Degenerative spurs are most pronounced at the mid lower thoracic spine. No paraspinal soft tissue abnormality. 2. Lumbar spine. No fracture. No focal bone lesion. Lumbar vertebrae have normal height and normal alignment. Mild degenerative lipping at the anterior endplates of lumbar vertebrae. Mild facet joint arthrosis lower lumbar spine. Lumbar disc heights are maintained. No spondylolysis. Sacroiliac joints are normal. Moderate volume of stool in visualized colonic bowel loops without abnormal bowel dilatation. There is a 5 mm calcification projecting over the lower pole of left kidney probable renal calculus. 3 mm stone was present at the lower pole left kidney on the renal ultrasound exam 08/21/2017. XR/XR thoracic spine 3V IMPRESSION: 1. No acute abnormality. Multilevel degenerative spondylosis of thoracic spine. 2. No acute abnormality. Mild degenerative spondylosis of lumbar spine. 3. Probable 5 mm stone lower pole left kidney.
--- NOTE | ~2023-03-21 | XR_ITS ---
EXAMINATION: 1. Thoracic spine. 2. Lumbar spine CLINICAL INFORMATION: Back pain COMPARISON: CT chest 04/24/2018. Ultrasound of kidneys 08/21/2017 TECHNIQUE: 1. Thoracic spine. 2 views 2. Lumbar spine. 3 views FINDINGS: 1. Thoracic spine. Thoracic vertebrae have normal height and normal alignment. No fracture or bone destruction. There is multilevel degenerative spondylosis of thoracic disc height narrowing and vertebral endplate spurs. Degenerative spurs are most pronounced at the mid lower thoracic spine. No paraspinal soft tissue abnormality. 2. Lumbar spine. No fracture. No focal bone lesion. Lumbar vertebrae have normal height and normal alignment. Mild degenerative lipping at the anterior endplates of lumbar vertebrae. Mild facet joint arthrosis lower lumbar spine. Lumbar disc heights are maintained. No spondylolysis. Sacroiliac joints are normal. Moderate volume of stool in visualized colonic bowel loops without abnormal bowel dilatation. There is a 5 mm calcification projecting over the lower pole of left kidney probable renal calculus. 3 mm stone was present at the lower pole left kidney on the renal ultrasound exam 08/21/2017. XR/XR lumbar spine 2-3V IMPRESSION: 1. No acute abnormality. Multilevel degenerative spondylosis of thoracic spine. 2. No acute abnormality. Mild degenerative spondylosis of lumbar spine. 3. Probable 5 mm stone lower pole left kidney.
[2023-03-21 16:21] VITALS: BP 144/79; PULSE 94; RESP 16; TEMP 36.8; O2SAT 96; BMI 23.6
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
[2023-03-21] MEDS: NaPROXEN 500 MG TABLET PO (18:43)
[2023-03-21] MEDS: Cyclobenzaprine HCl 10 MG TABLET PO (18:43)
== END 2023-03-21 18:52 | disposition home or self-care (01) ==
PROVIDERS: Emergency Provider Emergency Medicine
DX: S39.012A Strain of muscle, fascia and tendon of lower back, initial encounter (principal); S29.012A Strain of muscle and tendon of back wall of thorax, initial encounter; V43.52XA Car driver injured in collision with other type car in traffic accident, initial encounter; E11.9 Type 2 diabetes mellitus without complications; I10 Essential (primary) hypertension; E78.5 Hyperlipidemia, unspecified; Z79.82 Long term (current) use of aspirin; Z79.84 Long term (current) use of oral hypoglycemic drugs; Z79.899 Other long term (current) drug therapy; Y93.89 Activity, other specified; Y92.414 Local residential or business street as the place of occurrence of the external cause; Y99.9 Unspecified external cause status
CPT/HCPCS: 72072; 72100; 99283

== ENCOUNTER 2023-04-17 08:55 | Outpatient (REF) | payer MEDICARE, MEDICAID, SELFPAY ==
[2023-04-17 09:12] LABS: MANUAL DIFF FLAG NO
[2023-04-17 10:04] LABS: Basophils Percent Auto 0.6 % (0-2); Eosinophils Absolute Auto 0.2 X10*3/uL (0.0-0.4); Eosinophils Percent Auto 4.5 % (0-4); Hematocrit 43.8 % (42.0-52.0); Hemoglobin 14.1 g/dl (14.0-18.0); Imm Gran Abs Auto 0.01 X10*3/uL (0.00-0.03); Imm Gran Pct Auto 0.3 % (0.0-0.4); Lymphocytes Absolute Auto 0.8 X10*3/uL (1.2-4.9); Lymphocytes Percent Auto 22.3 % (20-40); Mean Corpuscular HGB Conc 32.2 g/dl (31.0-36.0); Mean Corpuscular Volume 86.9 fL (80.0-98.0); Mean Platelet Volume 10.8 fL (9.4-12.4); Monocytes Absolute Auto 0.3 X10*3/uL (0.1-1.2); Monocytes Percent Auto 8.9 % (2-11); Neutrophils Absolute Auto 2.1 x10*3/uL (2.0-8.3); Neutrophils Percent Auto 63.4 % (45-73); Platelet Count 162 X10*3/uL (160-400); Red Blood Count 5.04 X10*6/uL (4.60-5.80); Red Cell Distribution Width 12.2 % (11.0-16.0); White Blood Count 3.4 X10*3/uL (4.8-10.8)
[2023-04-17 10:53] LABS: Alanine Aminotransferase 51 U/L (0-40); Albumin Level 4.6 g/dL (3.5-5.0); Alkaline Phosphatase 60 U/L (39-117); Anion Gap 13 (12-20); Aspartate Amino Transferase 34 U/L (5-37); Bilirubin Total 0.4 mg/dL (0.0-1.0); Blood Urea Nitrogen 19 mg/dL (9-16); Calcium 9.7 mg/dL (8.4-10.2); Carbon Dioxide 25 mmol/L (22-29); Chloride 105 mmol/L (96-108); Estimated Glomerular Filt Rate > 60; Glucose Random 155 mg/dL (60-115); Potassium 4.7 mmol/L (3.3-5.1); Sodium 138 mmol/L (135-145); Total Protein 8.2 g/dL (6.5-8.0)
[2023-04-17 11:13] LABS: Prostate Specific Antigen 2.27 ng/mL (<0.05-4.0)
[2023-04-17 12:00] LABS: Creatinine Urine 143.66 mg/dL; Microalbum/Creatinine Ratio Ur 9.7 ug/mg cr
== END 2023-04-17 08:56 | disposition home or self-care (01) ==
LOC: HO.LAB 08:55
PROVIDERS: PCP Registered Nurse; Visit Provider Registered Nurse
DX: E11.65 Type 2 diabetes mellitus with hyperglycemia (principal)
CPT/HCPCS: 36415; 80053; 82043; 84153; 85025

== ENCOUNTER 2023-07-10 10:39 | Outpatient (REF) | payer MEDICARE, MEDICAID, SELFPAY ==
--- NOTE | ~2023-07-10 | XR_ITS ---
EXAMINATION: XR FOOT, LEFT CLINICAL INFORMATION: Puncture wound of left foot. Rule out retained foreign body. COMPARISON: 09/19/2021 TECHNIQUE: AP, oblique and 2 lateral views of the left foot. FINDINGS: Progression of dorsal calcaneal spurring with persistent plantar calcaneal spurring. Vascular calcifications. Advanced degenerative changes in the midfoot and first metatarsophalangeal joint. A radiopaque marker was placed to indicate the area of concern as indicated by the patient at the plantar aspect of the metatarsophalangeal joints and demonstrated no gross radiopaque foreign body. Moderate degenerative changes with hypertrophic change and scattered joints of the foot. XR/XR foot LT min 3V IMPRESSION: A radiopaque marker was placed to indicate the area of concern as indicated by the patient at the plantar aspect of the metatarsophalangeal joints and demonstrated no gross radiopaque foreign body. Correlation with clinical exam and possible additional imaging with ultrasound or CT scan could be considered for further evaluation.
== END 2023-07-10 10:40 | disposition home or self-care (01) ==
LOC: HO.HHCX 10:39
PROVIDERS: Visit Provider Registered Nurse
DX: S91.332A Puncture wound without foreign body, left foot, initial encounter (principal); X58.XXXA Exposure to other specified factors, initial encounter; Y93.9 Activity, unspecified; Y92.9 Unspecified place or not applicable; Y99.9 Unspecified external cause status
CPT/HCPCS: 73630

== ENCOUNTER 2023-10-01 10:57 | Emergency (ER) | payer MEDICARE, MEDICAID, SELFPAY ==
--- NOTE | ~2023-10-01 | XR_ITS ---
EXAMINATION: XR FOOT, LEFT CLINICAL INFORMATION: Osteophytes MTP joint COMPARISON: None available. TECHNIQUE: AP, lateral, and oblique views of the left foot. FINDINGS: There is loss of PIP joint space first digit with mild medial deviation. No visible acute fracture, dislocation, periosteal elevation or bony erosive changes seen. The ankle mortise and subtalar joints are normal. There is a small to moderate size calcaneal heel and retrocalcaneal enthesophytes. There are vascular calcifications present throughout the left foot. XR/XR foot LT min 3V IMPRESSION: 1. Mild degenerative changes PIP joint first digit. No visible acute fracture or dislocation seen. 2. Small calcaneal heel and retrocalcaneal enthesophytes. 3. There are vascular calcifications present.
[2023-10-01 11:07] VITALS: BP 155/82; PULSE 98; RESP 16; TEMP 36.1; O2SAT 99; BMI 23.3
--- NOTE | 2023-10-01 11:12 | ED_ITS ---
HPI - General Adult General Chief complaint: Wound/Laceration Stated complaint: ucler in left foot Time Seen by Provider: 10/01/23 12:31 Source: patient and RN notes reviewed Mode of arrival: ambulatory Limitations: no limitations History of Present Illness HPI narrative: This is a 62-year-old male, with a history of diabetes, presenting to the emergency department with complaints of chronic wound to his left foot. Patient states that in August he had a lesion on the bottom of his foot biopsied. He states that he return back to his primary care physician as after the biopsy he noticed some drainage from the area and was concerned for infection. Was placed on cefadroxil, which he still has 3 remaining pills left however reports he is concerned as the area is still draining. He denies any pain however reports that he has diabetic neuropathy in his feet and therefore does not feel it. He does not have follow-up with his primary care physician until October 16. He states that he is otherwise feeling well, denies any fevers, chills, chest pain, shortness of breath, abdominal pain, nausea, vomiting or diarrhea. No other complaints or concerns at this time. MD complaint: Left foot lesion Onset (ago): week(s) Location: lower extremity Radiation: non-radiation Severity: moderate Relieving factors: none Exacerbating factors: none Associated symptoms: denies other symptoms Treatments prior to arrival: none Related Data Home Medications Medication Instructions Recorded Confirmed empagliflozin 25 mg tablet 1 tab PO DAILY 03/31/22 02/07/23 (Jardiance) aspirin 81 mg tablet,delayed 81 mg PO QAM 02/07/23 02/07/23 release cholecalciferol (vitamin D3) 50 50 mcg PO QAM 02/07/23 02/07/23 mcg (2,000 unit) capsule metformin 500 mg tablet,extended 1,000 mg PO BID 02/07/23 02/07/23 release 24 hr metoprolol succinate 50 mg 50 mg PO QAM 02/07/23 02/07/23 tablet,extended release 24 hr Previous Rx's Medication Instructions Recorded cefazolin 2 gram/50 mL in dextrose 2 g IV Q8H #234 grams 04/04/22 (iso-osmotic) intravenous piggyback isosorbide mononitrate 30 mg 30 mg PO QAM #90 tabs 11/30/22 tablet,extended release 24 hr cyclobenzaprine 10 mg tablet 10 mg PO Q8H #14 tabs 03/21/23 naproxen 500 mg tablet 500 mg PO BID PRN pain #14 tabs 03/21/23 atorvastatin 80 mg tablet 80 mg PO QPM #90 tabs 05/09/23 ezetimibe 10 mg tablet 10 mg PO QPM #90 tabs 06/26/23 doxycycline hyclate 100 mg capsule 100 mg PO BID 10 days #20 caps 10/01/23 Allergies Allergy/AdvReac Type Severity Reaction Status Date / Time piperacillin [From ZOSYN] Allergy Mild RASH Verified 10/01/23 11:07 tazobactam [From ZOSYN] Allergy Mild RASH Verified 10/01/23 11:07 vancomycin Allergy Itching Verified 10/01/23 11:07 Review of Systems 2 Review of Systems: Yes all other systems are reviewed and are negative Constitutional: Constitutional: Reports as per [facility] Past Medical History Medical History Atherosclerotic cardiovascular disease Diabetes High cholesterol HTN (hypertension) Leucopenia Other and unspecified hyperlipidemia Type 2 diabetes mellitus with unspecified complications Surgical History History of incision and drainage (~12/2017) Family History Family History Father Liver disease Mother Diabetes Heart attack Sister Diabetes Kidney disease Stomach cancer Social History Social History Household Members: None Housing: Apartment Are you a primary home care rn to a significant other at home: No Do you presently have visiting nurse or other home services: No Alcohol intake: former Patient Tobacco Use Status: Never used Tobacco Advance Directives Date on File: 04/05/22 service: No Current occupational status: disabled Physical Exam ED Vital Signs: Vital Signs - 24 hr 10/01/23 11:07 Temperature 96.9 F Pulse Rate 98 Respiratory Rate 16 Blood Pressure 155/82 H Pulse Oximetry 99 Oxygen Delivery Method Room Air BMI result Body Mass Index 23.3 Const General: cooperative, comfortable and no acute distress Orientation/consciousness: patient oriented x3 Limitations: no limitations HENMT Head: Yes normal to inspection, Yes normocephalic and Yes atraumatic Ears: hearing grossly normal bilaterally General nose exam: Normal external nose present Face and sinus: Yes normal facial exam Mouth: Normal oral and palatal mucosa present, oropharynx normal and moist mucous membranes Throat: Yes posterior oropharynx normal Eyes General: appearance normal, both eyes and all related structures Eyelids: Yes eyelids normal Conjunctivae: conjunctivae normal Sclerae: sclerae normal Pupils: Equal, round and reactive pupils present EOM: EOMs intact bilaterally Neck Neck: Yes normal visual inspection, Yes full ROM and Yes no lymphadenopathy Lymphatic: no lymphadenopathy noted Chest Chest palpation & inspection: normal inspection of the chest Resp Effort & Inspection: normal respiratory effort and able to speak in complete sentences Auscultation: clear to auscultation bilaterally, no crackles, no rales, no rhonchi and no wheezes Cardio Rate: regular rate Rhythm: regular rhythm Heart sounds: S1 normal heart sound present and S2 normal heart sound present GI Inspection: Yes normal to inspection Skin Other: Left foot, plantar aspect overlying the metatarsal head there is a 2mm superficial abrasion noted with no surrounding erythema, edema, warmth. No drainagae. Nontender, no fluctuance or induration General skin exam: no rashes or lesions noted Trauma: no lacerations or abrasions Wounds: no wounds Neuro General: patient oriented x3 and moves all extremities Cranial nerves: Yes Equal, round and reactive pupils present Extrem General: Yes normal to inspection Right upper extremity: normal to inspection Left upper extremity: normal to inspection Right lower extremity: normal to inspection Left lower extremity: normal to inspection Course Course Course Narrative: RME- 62-year-old male with history of diabetes presents for evaluation ulcer on the bottom of his left foot. He was seen by his PCP, had area biopsied and has been on cefadroxil and has 2 doses left. He has a small ulcer to the plantar surface. No surrounding erythema or evident abscess. Patient reports a history of foul-smelling odor despite the antibiotics. Plan for labs including x-ray Medical Decision Making Medical Decision Making MDM Narrative: This is a 62-year-old male, with a history of diabetes, presenting to the emergency department with complaints of chronic wound to his left foot. On arrival, vital signs within normal limits. He is afebrile. Wound is 2mm, but no current concern for active infection at this time. Labs were reassuring. Pt placed on doxycycline for better coverage. Given return precautions. He understands and agrees with plan. Stable for d/c, Differential Diagnosis Differential Diagnoses: The differential diagnosis associated with the presentation includes cellulitis, puncture wound, abrasion, contusion Admission/Observation Consideration of admission/observation: Escalation of care including admission/observation considered Lab Data MDM Lab Attestation statement: I reviewed the patient's lab results. No leukocytosis, lactic acid and CRP WNL 10/01/23 11:22 10/01/23 11:22 Labs: Lab Results 10/01/23 Range/Units 11:22 WBC 3.1 L (4.8-10.8) X10*3/uL RBC 5.15 (4.60-5.80) X10*6/uL Hgb 14.6 (14.0-18.0) g/dl Hct 44.2 (42.0-52.0) % MCV 85.8 (80.0-98.0) fL MCH 28.3 (27.0-33.0) pg MCHC 33.0 (31.0-36.0) g/dl RDW 11.9 (11.0-16.0) % Plt Count 182 (160-400) X10*3/uL MPV 9.9 (9.4-12.4) fL Immature Gran % (Auto) 0.3 (0.0-0.4) % Neut % (Auto) 65.8 (45-73) % Lymph % (Auto) 24.4 (20-40) % [place] % (Auto) 7.2 (2-11) % Eos % (Auto) 2.0 (0-4) % Baso % (Auto) 0.3 (0-2) % Lymph # (Auto) 0.8 L (1.2-4.9) X10*3/uL [place] # (Auto) 0.2 (0.1-1.2) X10*3/uL Eos # (Auto) 0.1 (0.0-0.4) X10*3/uL Baso # (Auto) 0.0 (0.0-0.2) X10*3/uL Abs Immat Gran (auto) 0.01 (0.00-0.03) X10*3/uL Absolute Neuts (auto) 2.0 (2.0-8.3) x10*3/uL Absolute Nucleated RBC 0.000 (0.0-0.012) X10*3/uL Nucleated RBC % (auto) 0.0 (0.0-0.2) /100WBC ESR 14 (0-15) MM/HR Sodium 139 (135-145) mmol/L Potassium 4.2 (3.3-5.1) mmol/L Chloride 105 (96-108) mmol/L Carbon Dioxide 26 (22-29) mmol/L Anion Gap 12 (12-20) BUN 18 H (9-16) mg/dL Creatinine 1.09 (0.5-1.4) mg/dL Estim Creat Clear Calc 77.1 Estimated GFR > 60 Random Glucose 175 H (60-115) mg/dL Lactic Acid 1.3 (0.5-2.0) mmol/L Calcium 10.0 (8.4-10.2) mg/dL C-Reactive Protein 0.14 (< or = 0.50) mg/dL Radiology Impression Discussion of test interpretation with radiology: I have reviewed the radiologist's reading. Radiologist Impression: EXAMINATION: XR FOOT, LEFT CLINICAL INFORMATION: Osteophytes MTP joint COMPARISON: None available. TECHNIQUE: AP, lateral, and oblique views of the left foot. FINDINGS: There is loss of PIP joint space first digit with mild medial deviation. No visible acute fracture, dislocation, periosteal elevation or bony erosive changes seen. The ankle mortise and subtalar joints are normal. There is a small to moderate size calcaneal heel and retrocalcaneal enthesophytes. There are vascular calcifications present throughout the left foot. XR/XR foot LT min 3V IMPRESSION: 1. Mild degenerative changes PIP joint first digit. No visible acute fracture or dislocation seen. 2. Small calcaneal heel and retrocalcaneal enthesophytes. 3. There are vascular calcifications present. Dictated By: Jeovanny Stephenson MD Discharge Plan Discharge Clinical Impression: Open wound of left foot Patient Disposition: Home, Self-Care Instructions: Acute Wounds (ED) Additional Instructions: Your seen in the department today due to concerns for a left wound. This does not appear to be acutely infected however I a.m. treating you with a different antibiotic. I want you to continue your previously prescribed medication, cefadroxil, but also take doxycycline 100 mg twice a day for the next 10 days. Watch the area closely, and return if you develop any increased redness, swelling, drainage, fevers or chills. Please follow-up with your primary care physician within the next 10 days to ensure that your wound is properly healing. If any new or worsening symptoms occur, including but not limited to chest pain, shortness breast, please return for re-evaluation. I do not see on record when your last tetanus shot was, you declined receiving your tetanus shot in the department today. Please follow-up with your primary care physician as you may need this updated. Lo atendieron hoy en el departamento debido a preocupaciones por christohper herida izquierda. [place] no parece tener christopher infecci?n grave, rosana le estoy tratando con un antibi?gaston diferente. Quiero que contin?e con mccain medicamento recetado anteriormente, cefadroxil, rosana tambi?n tome doxiciclina 100 mg dos veces al d?a kyle los pr?ximos 10 d?as. Observe el ?stu de cerca y regrese si presenta aumento de enrojecimiento, hinchaz?n, secreci?n, fiebre o escalofr?os. Etta un seguimiento con mccain m?dico de atenci?n primaria dentro de los pr?ximos 10 d?as para asegurarse de que mccain herida est? sanando adecuadamente. Si se presenta alg?n s?ntoma nuevo o que empeora, incluidos, entre otros, dolor en el pecho o falta de pecho, regrese para christopher nueva evaluaci?n. No veo en el registro cu?ndo fue mccain ?ltima vacuna contra el t?tanos, hoy se neg? a recibirla en el departamento. Etta un seguimiento con mccain m?dico de atenci?n primaria, ya que es posible que necesite actualizar esto. Prescriptions: New doxycycline hyclate 100 mg capsule 100 mg PO BID 10 Days Qty: 20 0RF No Action isosorbide mononitrate 30 mg tablet extended release 24 hr 30 mg PO QAM Qty: 90 3RF atorvastatin 80 mg tablet 80 mg PO QPM Qty: 90 3RF ezetimibe 10 mg tablet 10 mg PO QPM Qty: 90 3RF Jardiance 25 mg tablet 1 tab PO DAILY cefazolin in dextrose (iso-os) 2 gram/50 mL Piggyback 2 g IV Q8H Qty: 234 0RF aspirin 81 mg tablet,delayed release (DR/EC) 81 mg PO QAM cholecalciferol (vitamin D3) 50 mcg (2,000 unit) capsule 50 mcg PO QAM metformin 500 mg tablet extended release 24 hr 1,000 mg PO BID metoprolol succinate 50 mg tablet extended release 24 hr 50 mg PO QAM naproxen 500 mg tablet 500 mg PO BID PRN (Reason: pain) Qty: 14 0RF cyclobenzaprine 10 mg tablet 10 mg PO Q8H Qty: 14 0RF Interventions: ED Discharge Assessment Last Done: 10/01/23 14:41 Discharge Date/Time: 10/01/23 14:44 Print Language: Irish
--- OUTSIDE RECORDS SUMMARY | 2023-10-01 11:20 | XMS_ITS | Continuity of Care Document ---
Author Name Unknown Organization [facility] Address [address] [place] [id number]- Care Team Providers Care Window Covering Sales Consultant Name Role Phone Not on Staff, PCP Primary Care Physician Unavail able Encounter [facility] [place] Date(s): 11/05/19 - 12/25/19 [facility] [address] [place] [id number]- [facility] Attending Physician: Manfred HALL, Brendan Trinh Admitting Physician: Manfred HALL, Brendan Trinh Referring Physician: Tera Kerr MD, Jaymie Jane Medications cholecalciferol 1000 intl units oral tablet 1 tablet = 1,000 International_Units, By Mouth, Daily, # 30 tablet, 6 Refills, Maintenance, 03/17/14 15:21:37, Tablet, 1 tablet By Mouth Daily,x30 days Start Date: 03/17/14 Stop Date: 10/13/14 Status: Ordered hydrochlorothiazide-lisinopril 12.5 mg-20 mg oral tablet 1 tablet, By Mouth, Daily, # 30 tablet, 11 Refills, Maintenance, 10/13/14 11:30:22, Tablet, 1 tablet By Mouth Daily,x30 days Start Date: 10/13/14 Stop Date: 10/08/15 Status: Ordered Metoprolol Tartrate 50 mg oral tablet 1 tablet = 50 mg, By Mouth, 2 times a day, # 60 tablet, 0 Refills, Maintenance, 11/04/13 16:37:51, Tablet Start Date: 11/04/13 Stop Date: 12/04/13 Status: Ordered Social History Social History Type Response Sex Male
--- OUTSIDE RECORDS SUMMARY | 2023-10-01 11:20 | XMS_ITS | Continuity of Care Document ---
Author Name Unknown Organization [facility] Address [address] [place] [id number]- Care Team Providers Care Hardware Developer Name Role Phone Not on Staff, PCP Primary Care Physician Unavail able [place] [facility] [place] 12[place]19 [facility] [address] [place] [id number]- [facility] Attending Physician: Edson Ricardo Admitting Physician: Edson Ricardo Referring Physician: Edson Ricardo Medications cholecalciferol 1000 intl units oral tablet [...]
--- OUTSIDE RECORDS SUMMARY | 2023-10-01 11:20 | XMS_ITS | Continuity of Care Document ---
Author Name Unknown Organization [facility] Address [address] [place] [id number]- Care Team Providers Care Fruit Picker Machine Operator Name Role Phone Not on Staff, PCP Primary Care Physician Unavail able Encounter [facility] [place] Date(s): 11/05/19 - 12/25/19 [facility] [address] [place] [id number]- [facility] Attending Physician: Lavell HALL, Kris Renee Admitting Physician: Kris Monte MD Referring Physician: Tera Kerr MD, Jaymie Jane [...]
--- OUTSIDE RECORDS SUMMARY | 2023-10-01 11:20 | XMS_ITS | Continuity of Care Document ---
Author Name Unknown Organization [facility] Address [address] [place] [phone]- Care Team Providers Care Purse Seiner Name Role Phone Not on Staff, PCP Primary Care Physician Unavail able Encounter [facility] [place] Date(s): 11/25/19 - 12/05/19 [facility] [address] [place] [id number]- [facility] Attending Physician: Edson Ricardo Admitting Physician: Edson [...]
[2023-10-01 11:26] LABS: MANUAL DIFF FLAG NO
[2023-10-01 11:29] LABS: Basophils Percent Auto 0.3 % (0-2); Eosinophils Absolute Auto 0.1 X10*3/uL (0.0-0.4); Hematocrit 44.2 % (42.0-52.0); Hemoglobin 14.6 g/dl (14.0-18.0); Imm Gran Abs Auto 0.01 X10*3/uL (0.00-0.03); Imm Gran Pct Auto 0.3 % (0.0-0.4); Lymphocytes Absolute Auto 0.8 X10*3/uL (1.2-4.9); Lymphocytes Percent Auto 24.4 % (20-40); Mean Corpuscular Hemoglobin 28.3 pg (27.0-33.0); Mean Corpuscular Volume 85.8 fL (80.0-98.0); Mean Platelet Volume 9.9 fL (9.4-12.4); Monocytes Absolute Auto 0.2 X10*3/uL (0.1-1.2); Monocytes Percent Auto 7.2 % (2-11); Neutrophils Percent Auto 65.8 % (45-73); Platelet Count 182 X10*3/uL (160-400); Red Blood Count 5.15 X10*6/uL (4.60-5.80); Red Cell Distribution Width 11.9 % (11.0-16.0); White Blood Count 3.1 X10*3/uL (4.8-10.8)
[2023-10-01 11:39] LABS: Lactic Acid 1.3 mmol/L (0.5-2.0)
[2023-10-01 11:43] LABS: Anion Gap 12 (12-20); Blood Urea Nitrogen 18 mg/dL (9-16); C Reactive Protein 0.14 mg/dL (< or = 0.50); Carbon Dioxide 26 mmol/L (22-29); Chloride 105 mmol/L (96-108); Creatinine Clr Calc Pharmacy 77.1; Estimated Glomerular Filt Rate > 60; Glucose Random 175 mg/dL (60-115); Potassium 4.2 mmol/L (3.3-5.1); Sodium 139 mmol/L (135-145)
[2023-10-01 12:07] LABS: Erythrocyte Sedimentation Rate 14 MM/HR (0-15)
[2023-10-01 14:28] VITALS: BP 131/71; PULSE 65; RESP 16; TEMP 36.4; O2SAT 100
== END 2023-10-01 14:44 | disposition home or self-care (01) ==
PROVIDERS: Physician Assistant; Emergency Provider Emergency Medicine Emergency Medical Services; PCP Registered Nurse
DX: S91.302A Unspecified open wound, left foot, initial encounter (principal); X58.XXXA Exposure to other specified factors, initial encounter; Y93.9 Activity, unspecified; Y92.9 Unspecified place or not applicable; Y99.8 Other external cause status; Z79.899 Other long term (current) drug therapy
CPT/HCPCS: 36415; 73630; 80048; 83605; 85025; 85652; 86140; 87040; 99283

== ENCOUNTER 2023-10-16 16:15 | Outpatient (REF) | payer MEDICARE, MEDICAID, SELFPAY | END 2023-10-16 16:16 | disposition home or self-care (01) | LOC: HO.HHCLNP 16:15 | PROVIDERS: Visit Provider Registered Nurse | DX: S91.302A Unspecified open wound, left foot, initial encounter (principal); X58.XXXA Exposure to other specified factors, initial encounter; Y93.9 Activity, unspecified; Y92.9 Unspecified place or not applicable; Y99.9 Unspecified external cause status | CPT/HCPCS: 87070; 87077; 87186; 87205 ==

== ENCOUNTER 2023-10-24 08:59 | Outpatient (REF) | payer MEDICARE, MEDICAID, SELFPAY ==
[2023-10-24 09:21] LABS: MANUAL DIFF FLAG NO
[2023-10-24 09:38] LABS: Basophils Percent Auto 0.3 % (0-2); Eosinophils Absolute Auto 0.1 X10*3/uL (0.0-0.4); Eosinophils Percent Auto 2.8 % (0-4); Hematocrit 47.5 % (42.0-52.0); Hemoglobin 15.3 g/dl (14.0-18.0); Imm Gran Abs Auto 0.01 X10*3/uL (0.00-0.03); Imm Gran Pct Auto 0.3 % (0.0-0.4); Lymphocytes Absolute Auto 0.9 X10*3/uL (1.2-4.9); Lymphocytes Percent Auto 21.7 % (20-40); Mean Corpuscular HGB Conc 32.2 g/dl (31.0-36.0); Mean Corpuscular Hemoglobin 28.1 pg (27.0-33.0); Mean Corpuscular Volume 87.2 fL (80.0-98.0); Mean Platelet Volume 9.9 fL (9.4-12.4); Monocytes Absolute Auto 0.3 X10*3/uL (0.1-1.2); Monocytes Percent Auto 8.6 % (2-11); Neutrophils Absolute Auto 2.6 x10*3/uL (2.0-8.3); Neutrophils Percent Auto 66.3 % (45-73); Platelet Count 185 X10*3/uL (160-400); Red Blood Count 5.45 X10*6/uL (4.60-5.80); Red Cell Distribution Width 12.2 % (11.0-16.0)
[2023-10-24 09:39] LABS: Estimated Average Glucose 180 mg/dL; Hemoglobin A1c % 7.9 % (<6.0)
[2023-10-24 10:09] LABS: Parathyroid Hormone Intact 61.3 pg/mL (8.7-77.1)
[2023-10-24 10:18] LABS: Appearance Urine Clear; Color Urine Yellow; Glucose Urine UA Negative (Negative); Leukocyte Esterase Urine Moderate (2+) (Negative); Nitrite Urine Negative (Negative); UMIC TRIGGER UA YES; Urine Blood Negative (Negative); Urine Ketones 15 mg/dL (Negative); Urine Protein Negative (Neg-Trace)
[2023-10-24 10:23] LABS: Bacteria Urine None Seen (None Seen); Hyaline Casts Urine 0-2 /LPF (0-2); RBC Urine 0-2 /HPF (0-2); Squamous Epithelial Cell Urine 0-2 /HPF (0-2)
[2023-10-24 10:24] LABS: Anion Gap 13 (12-20); Blood Urea Nitrogen 19 mg/dL (9-16); Calcium 10.3 mg/dL (8.4-10.2); Carbon Dioxide 26 mmol/L (22-29); Chloride 104 mmol/L (96-108); Cholesterol 232 mg/dL (<200); Estimated Glomerular Filt Rate > 60; HDL Cholesterol 59 mg/dL (>40); Iron 81 mcg/dL (45-160); LDL Cholesterol Calculated 157 mg/dL (<100); Magnesium 2.1 mg/dL (1.6-2.6); Percent Iron Saturation 28 % (15-50); Potassium 4.3 mmol/L (3.3-5.1); Sodium 139 mmol/L (135-145); Total Iron Binding Capacity 285 mcg/dL (228-428); Triglycerides 81 mg/dL (<150); Unsaturated Iron Binding 204 ug/dL
[2023-10-24 10:34] LABS: Vitamin D 25-OH Total 28.3 ng/mL (>30)
[2023-10-24 11:33] LABS: Creatinine Urine 129.32 mg/dL; Total Protein Urine Random < 7 mg/dL (<12)
== END 2023-10-24 09:00 | disposition home or self-care (01) ==
LOC: HO.LAB 08:59
PROVIDERS: PCP Registered Nurse; Visit Provider Physician Assistant
DX: I12.9 Hypertensive chronic kidney disease with stage 1 through stage 4 chronic kidney disease, or unspecified chronic kidney disease (principal); E11.22 Type 2 diabetes mellitus with diabetic chronic kidney disease; N18.2 Chronic kidney disease, stage 2 (mild)
CPT/HCPCS: 36415; 80051; 80061; 81001; 82306; 82310; 82565; 82570; 83036; 83540; 83735; 83970; 84156; 84520; 85025

== ENCOUNTER 2023-10-31 10:30 | Outpatient (RCR) | payer MEDICARE, MEDICAID, SELFPAY | END 2023-11-04 12:59 | disposition home or self-care (01) | LOC: HO.WCC 10:30 | PROVIDERS: PCP Registered Nurse; Visit Provider Surgery | DX: E11.9 Type 2 diabetes mellitus without complications; Z86.31 Personal history of diabetic foot ulcer | CPT/HCPCS: 11042; 99212 ==

== ENCOUNTER 2024-01-15 10:43 | Outpatient (REF) | payer MEDICARE, MEDICAID, SELFPAY ==
--- NOTE | ~2024-01-15 | XR_ITS ---
EXAMINATION: XR FOOT, LEFT CLINICAL INFORMATION: Persistent left foot ulcer evaluate for osteomyelitis. COMPARISON: X-ray left foot February 2024 TECHNIQUE: AP, lateral, and oblique views of the left foot. FINDINGS: Mild osteoarthritis of the first metatarsophalangeal joint manifested by small marginal osteophytes. No bone erosion or joint space narrowing. Calcaneal spurs noted. Ossification/calcification within the proximal plantar fascia likely related to old plantar fascia tear or plantar fasciitis. Arterial calcification noted. XR/XR foot LT min 3V IMPRESSION: 1. No radiographic evidence for osteomyelitis. 2. Mild osteoarthritis of the first metatarsophalangeal joint. 3. Calcaneal spurs.
== END 2024-01-15 10:44 | disposition home or self-care (01) ==
LOC: HO.XRAY 10:43
PROVIDERS: PCP Registered Nurse; Visit Provider Registered Nurse
DX: Z13.89 Encounter for screening for other disorder (principal)
CPT/HCPCS: 73630

== ENCOUNTER 2024-01-15 17:01 | Outpatient (REF) | payer MEDICARE, MEDICAID, SELFPAY | END 2024-01-15 17:02 | disposition home or self-care (01) | LOC: HO.HHCLNP 17:01 | PROVIDERS: Visit Provider Registered Nurse | DX: E11.621 Type 2 diabetes mellitus with foot ulcer (principal); L97.521 Non-pressure chronic ulcer of other part of left foot limited to breakdown of skin | CPT/HCPCS: 73630; 87070; 87077; 87186; 87205 ==

== ENCOUNTER 2024-02-12 11:09 | Emergency (ER) | payer MEDICARE, MEDICAID, SELFPAY ==
--- NOTE | ~2024-02-12 | XR_ITS ---
EXAMINATION: XR FOOT, LEFT CLINICAL INFORMATION: Diabetic ulcer. Increased swelling, fever. COMPARISON: 01/15/2024 TECHNIQUE: AP, lateral, and oblique views of the left foot. FINDINGS: Soft tissues are swollen at the medial and plantar aspects of the first MTP joint. No appreciable subcutaneous gas or foreign bodies as seen on these images. No underlying erosions. Mild multifocal osteoarthritis in the forefoot and midfoot. Moderate sized enthesopathic spurs are present at the Achilles tendon insertion and plantar fascial origin on the calcaneus. Atherosclerotic calcifications are present in the ankle. XR/XR foot LT min 3V IMPRESSION: 1. Soft tissue swelling at the first MTP joint. No radiographic findings of osteomyelitis. 2. Mild multifocal osteoarthritis in the forefoot and midfoot.
[2024-02-12 11:35] VITALS: BP 140/66; PULSE 71; RESP 16; TEMP 36.5; O2SAT 100; BMI 23.1
--- NOTE | 2024-02-12 11:35 | ED.GENADULT ---
HPI - General Adult General Chief complaint: Wound/Laceration Stated complaint: Ulcer L foot Time Seen by Provider: 02/12/24 20:28 Source: patient Mode of arrival: ambulatory Limitations: no limitations History of Present Illness ED Provider: jorge alberto BROOKE narrative: Patient diabetic have small callus on the sole of left foot at the base of 1st metatarsal at clear discharge yesterday at this time looks better came here to rechecked no pain no redness Related Data Home Medications ?Medication ?Instructions ?Recorded ?Confirmed empagliflozin 25 mg tablet 1 tab PO DAILY 03/31/22 02/07/23 (Jardiance) aspirin 81 mg tablet,delayed 81 mg PO QAM 02/07/23 02/07/23 release cholecalciferol (vitamin D3) 50 50 mcg PO QAM 02/07/23 02/07/23 mcg (2,000 unit) capsule metformin 500 mg tablet,extended 1,000 mg PO BID 02/07/23 02/07/23 release 24 hr metoprolol succinate 50 mg 50 mg PO QAM 02/07/23 02/07/23 tablet,extended release 24 hr Previous Rx's ?Medication ?Instructions ?Recorded cefazolin 2 gram/50 mL in dextrose 2 g IV Q8H #234 grams 04/04/22 (iso-osmotic) intravenous piggyback cyclobenzaprine 10 mg tablet 10 mg PO Q8H #14 tabs 03/21/23 naproxen 500 mg tablet 500 mg PO BID PRN pain #14 tabs 03/21/23 atorvastatin 80 mg tablet 80 mg PO QPM #90 tabs 05/09/23 ezetimibe 10 mg tablet 10 mg PO QPM #90 tabs 06/26/23 doxycycline hyclate 100 mg capsule 100 mg PO BID 10 days #20 caps 10/01/23 isosorbide mononitrate 30 mg 30 mg PO QAM #90 tabs 12/05/23 tablet,extended release 24 hr doxycycline hyclate 100 mg tablet 100 mg PO BID #20 tabs 02/12/24 Allergies Allergy/AdvReac Type Severity Reaction Status Date / Time piperacillin [From ZOSYN] Allergy Mild RASH Verified 02/12/24 11:36 tazobactam [From ZOSYN] Allergy Mild RASH Verified 02/12/24 11:36 vancomycin Allergy Itching Verified 02/12/24 11:36 Review of Systems Review of Systems: Yes all other systems are reviewed and are negative [facility] Past Medical History Medical History Leucopenia HTN (hypertension) High cholesterol Diabetes Other and unspecified hyperlipidemia Type 2 diabetes mellitus with unspecified complications Atherosclerotic cardiovascular disease Surgical History History of incision and drainage (~12/2017) Family History Family History Father Liver disease Mother Diabetes Heart attack Sister Diabetes Kidney disease Stomach cancer Social History Social History Household Members: None Housing: Apartment Are you a primary career and transition teacher to a significant other at home: No Do you presently have visiting nurse or other home services: No Alcohol intake: former Patient Tobacco Use Status: Never used Tobacco Advance Directives: Yes Advance Directives on File: Yes Advance Directives Date on File: 04/05/22 service: No Current occupational status: disabled Physical Exam ED Vital Signs: Vital Signs - 24 hr 02/12/24 20:22 02/12/24 21:07 Temperature 98.9 F 98.9 F Pulse Rate 66 66 Respiratory Rate 16 16 Blood Pressure 126/84 126/84 Pulse Oximetry 97 97 Oxygen Delivery Method Room Air Room Air BMI result Body Mass Index 23.1 Appearance: Alert. Oriented X3. No acute distress. ENT: Pharynx normal. Oral Mucosa moist Neck: Normal inspection. Neck supple. CVS: Normal heart rate and rhythm. Pulses normal. Respiratory: No respiratory distress. Equal air entry bilateral, no wheezing/rales/rhonchi Abdomen: Soft and nontender. Bowel sounds are present, no mass palpable, no CVA tenderness Skin: Skin warm and dry. Normal skin color. Normal skin turgor. Extremities: No lower extremity edema. No calf tenderness Left foot with small callus no signs of infection Neuro: Oriented X 3. No motor deficit. Decreased sensation to light touch and pinprick in the feet bilaterally Course Course Course Narrative: This is a rapid medical exam performed by Bubba Norton NP: Additional HPI, ROS, PE not included below will be deferred to primary provider. Patient is a 63-year-old male with history of T2DM, atherosclerotic cardiovascular disease, HLD, osteomyelitis of right foor presenting to the ED from wound care. Notes states patient has had an ulcer since August, was recently on a course of doxy, today he complained of increased swelling, chills, subjective fever. Plan: labs, xray Medications Administered Discontinued Medications Generic Name Dose Route Start Last Admin Trade Name Freq PRN Reason Stop Dose Admin Doxycycline Monohydrate 100 mg 02/12/24 20:55 02/12/24 21:03 Doxycycline Monohydrate 100 Mg Capsule PO 02/12/24 20:56 100 mg ONCE ONE Administration Medical Decision Making Medical Decision Making [facility] Narrative: Patient with small callus in the left foot no signs of deep infection discharge patient home on doxycycline Lab Data [facility] Lab Attestation statement: I reviewed the patient's lab results. 02/12/24 11:59 02/12/24 11:59 Labs: Lab Results 02/12/24 Range/Units 11:59 WBC 5.2 (4.8-10.8) X10*3/uL RBC 4.94 (4.60-5.80) X10*6/uL Hgb 14.5 (14.0-18.0) g/dl Hct 42.5 (42.0-52.0) % MCV 86.0 (80.0-98.0) fL MCH 29.4 (27.0-33.0) pg MCHC 34.1 (31.0-36.0) g/dl RDW 11.9 (11.0-16.0) % Plt Count 178 (160-400) X10*3/uL MPV 9.4 (9.4-12.4) fL Immature Gran % (Auto) 0.4 (0.0-0.4) % Neut % (Auto) 77.0 H (45-73) % Lymph % (Auto) 13.7 L (20-40) % Bland % (Auto) 7.5 (2-11) % Eos % (Auto) 1.2 (0-4) % Baso % (Auto) 0.2 (0-2) % Lymph # (Auto) 0.7 L (1.2-4.9) X10*3/uL Bland # (Auto) 0.4 (0.1-1.2) X10*3/uL Eos # (Auto) 0.1 (0.0-0.4) X10*3/uL Baso # (Auto) 0.0 (0.0-0.2) X10*3/uL Abs Immat Gran (auto) 0.02 (0.00-0.03) X10*3/uL Absolute Neuts (auto) 4.0 (2.0-8.3) x10*3/uL Absolute Nucleated RBC 0.000 (0.0-0.012) X10*3/uL Nucleated RBC % (auto) 0.0 (0.0-0.2) /100WBC ESR 26 H (0-15) MM/HR Sodium 137 (135-145) mmol/L Potassium 4.7 (3.3-5.1) mmol/L Chloride 101 (96-108) mmol/L Carbon Dioxide 32 H (22-29) mmol/L Anion Gap 9 L (12-20) BUN 15 (9-16) mg/dL Creatinine 1.19 (0.5-1.4) mg/dL Estim Creat Clear Calc 69.2 Estimated GFR > 60 Random Glucose 273 H (60-115) mg/dL Calcium 10.3 H (8.4-10.2) mg/dL Total Bilirubin 0.4 (0.0-1.0) mg/dL AST 20 (5-37) U/L ALT 22 (0-40) U/L Alkaline Phosphatase 71 (39-117) U/L C-Reactive Protein 4.66 H (< or = 0.50) mg/dL Total Protein 8.2 H (6.5-8.0) g/dL Albumin 4.5 (3.5-5.0) g/dL Independent Interpretation I performed an independent interpretation of an: Plain X-Ray Radiology Impression Discussion of test interpretation with radiology: I have reviewed the radiologist's reading. Discharge Plan Discharge Clinical Impression: Wound of left foot Patient Disposition: Home, Self-Care Instructions: Wound Infection (ED) Additional Instructions: Local care as advised Follow with Wound Center as scheduled Take doxycycline as advised Prescriptions: New doxycycline hyclate 100 mg tablet 100 mg PO BID Qty: 20 0RF No Action atorvastatin 80 mg tablet 80 mg PO QPM Qty: 90 3RF ezetimibe 10 mg tablet 10 mg PO QPM Qty: 90 3RF isosorbide mononitrate 30 mg tablet extended release 24 hr 30 mg PO QAM Qty: 90 1RF Jardiance 25 mg tablet 1 tab PO DAILY cefazolin in dextrose (iso-os) 2 gram/50 mL Piggyback 2 g IV Q8H Qty: 234 0RF aspirin 81 mg tablet,delayed release (DR/EC) 81 mg PO QAM cholecalciferol (vitamin D3) 50 mcg (2,000 unit) capsule 50 mcg PO QAM metformin 500 mg tablet extended release 24 hr 1,000 mg PO BID metoprolol succinate 50 mg tablet extended release 24 hr 50 mg PO QAM naproxen 500 mg tablet 500 mg PO BID PRN (Reason: pain) Qty: 14 0RF cyclobenzaprine 10 mg tablet 10 mg PO Q8H Qty: 14 0RF doxycycline hyclate 100 mg capsule 100 mg PO BID 10 Days Qty: 20 0RF Interventions: ED Discharge Assessment Last Done: 02/12/24 21:07 Discharge Date/Time: 02/12/24 21:08 Print Language: Luxembourgish
[2024-02-12 12:04] LABS: MANUAL DIFF FLAG NO
[2024-02-12 12:05] LABS: Basophils Percent Auto 0.2 % (0-2); Eosinophils Absolute Auto 0.1 X10*3/uL (0.0-0.4); Eosinophils Percent Auto 1.2 % (0-4); Hematocrit 42.5 % (42.0-52.0); Hemoglobin 14.5 g/dl (14.0-18.0); Imm Gran Abs Auto 0.02 X10*3/uL (0.00-0.03); Imm Gran Pct Auto 0.4 % (0.0-0.4); Lymphocytes Absolute Auto 0.7 X10*3/uL (1.2-4.9); Lymphocytes Percent Auto 13.7 % (20-40); Mean Corpuscular HGB Conc 34.1 g/dl (31.0-36.0); Mean Corpuscular Hemoglobin 29.4 pg (27.0-33.0); Mean Platelet Volume 9.4 fL (9.4-12.4); Monocytes Absolute Auto 0.4 X10*3/uL (0.1-1.2); Monocytes Percent Auto 7.5 % (2-11); Platelet Count 178 X10*3/uL (160-400); Red Blood Count 4.94 X10*6/uL (4.60-5.80); Red Cell Distribution Width 11.9 % (11.0-16.0); White Blood Count 5.2 X10*3/uL (4.8-10.8)
[2024-02-12 12:20] LABS: Alanine Aminotransferase 22 U/L (0-40); Albumin Level 4.5 g/dL (3.5-5.0); Alkaline Phosphatase 71 U/L (39-117); Anion Gap 9 (12-20); Aspartate Amino Transferase 20 U/L (5-37); Bilirubin Total 0.4 mg/dL (0.0-1.0); Blood Urea Nitrogen 15 mg/dL (9-16); C Reactive Protein 4.66 mg/dL (< or = 0.50); Calcium 10.3 mg/dL (8.4-10.2); Carbon Dioxide 32 mmol/L (22-29); Chloride 101 mmol/L (96-108); Creatinine Clr Calc Pharmacy 69.2; Estimated Glomerular Filt Rate > 60; Glucose Random 273 mg/dL (60-115); Potassium 4.7 mmol/L (3.3-5.1); Sodium 137 mmol/L (135-145); Total Protein 8.2 g/dL (6.5-8.0)
[2024-02-12 12:49] LABS: Erythrocyte Sedimentation Rate 26 MM/HR (0-15)
[2024-02-12 16:41] VITALS: BP 166/79; PULSE 74; RESP 16; TEMP 36.6; O2SAT 100
[2024-02-12 20:22] VITALS: BP 126/84; PULSE 66; RESP 16; TEMP 37.2; O2SAT 97
[2024-02-12] MEDS: Doxycycline Monohydrate 100 MG CAPSULE PO (21:03)
[2024-02-12 21:07] VITALS: BP 126/84; PULSE 66; RESP 16; TEMP 37.2; O2SAT 97
== END 2024-02-12 21:08 | disposition home or self-care (01) ==
PROVIDERS: Registered Nurse Emergency; Emergency Provider Internal Medicine; PCP Registered Nurse
DX: L84 Corns and callosities (principal); I10 Essential (primary) hypertension; E11.9 Type 2 diabetes mellitus without complications; E78.5 Hyperlipidemia, unspecified
CPT/HCPCS: 36415; 73630; 80053; 85025; 85652; 86140; 99283

== ENCOUNTER 2024-03-03 12:39 | Outpatient (AMB) | payer MEDICARE, MEDICAID, SELFPAY ==
--- NOTE | 2024-03-03 12:40 | MHC.OFFVIS ---
Vital Signs 03/03/24 12:41 Height 6 ft Weight 168 lb 13.985 oz BMI 22.9 BP 120/70 Blood Pressure Location Lt brachial Position Sitting Pulse 68 Pulse Source Monitor Intake Visit Reasons: r/s 02/10/24 1 year f/u w/ekg after testing Stripping Cutter And Winder Required: Yes Stripping Cutter And Winder Name: /[id number]/[id number] Accompanied by: Self / Same As Patient Allergies piperacillin [From ZOSYN] Allergy (Mild, Verified 02/12/24 11:36) RASH tazobactam [From ZOSYN] Allergy (Mild, Verified 02/12/24 11:36) RASH vancomycin Allergy (Verified 02/12/24 11:36) Itching Medication List - Last Reconciled 03/03/24 by Cecil Ramirez MD aspirin 81 mg PO QAM atorvastatin 80 mg PO QPM cholecalciferol (vitamin D3) 50 mcg PO QAM cyclobenzaprine 10 mg PO Q8H doxycycline hyclate 100 mg PO BID empagliflozin (Jardiance) 1 tab PO DAILY ezetimibe 10 mg PO QPM isosorbide mononitrate ER 30 mg PO QAM metformin ER 1,000 mg PO BID metoprolol succinate ER 50 mg PO QAM naproxen 500 mg PO BID PRN HPI Comments Details: Néstor returns for follow-up regarding coronary artery disease. Multiple cardiovascular risk factors including type 2 diabetes, hypertension, dyslipidemia. Overall, he states he is doing fine. No complaints like angina or shortness of breath or in fact anything cardiac sounding. He is getting along fine. [facility] Medical History Leucopenia HTN (hypertension) High cholesterol Diabetes Other and unspecified hyperlipidemia Type 2 diabetes mellitus with unspecified complications Atherosclerotic cardiovascular disease Surgical History History of incision and drainage (~12/2017) Family History Father Liver disease Mother Diabetes Heart attack Sister Diabetes Kidney disease Stomach cancer Social History Household Members: None Housing: Apartment Are you a primary medicare contact specialist to a significant other at home: No Do you presently have visiting nurse or other home services: No Alcohol intake: former Patient Tobacco Use Status: Never used Tobacco Advance Directives Date on File: 04/05/22 service: No Current occupational status: disabled Review of Systems Const Denies chills, Denies fatigue, Denies fever(s), Denies frequent falls, Denies weakness, Denies weight gain and Denies weight loss ENT Denies dizziness Card Denies chest pain, Denies leg edema, Denies lightheadedness, Denies palpitations, Denies dyspnea and Denies dyspnea on exertion Resp Denies cough, Denies dyspnea and Denies dyspnea on exertion GI Denies hematochezia Musc Denies abnormal gait, Denies muscle weakness, Denies numbness, Denies radiating pain into limb and Denies tingling Neuro Denies abnormal gait, Denies dizziness, Denies frequent falls, Denies numbness, Denies tingling and Denies weakness Endo Denies fatigue and Denies palpitations Physical Exam Vital Signs: Last Vital Signs Pulse 68 03/03/24 12:41 BP 120/70 03/03/24 12:41 BMI result Body Mass Index 22.9 Const General: comfortable and no acute distress Orientation/consciousness: patient oriented x3 HEENT Other: Unremarkable Head: Yes normal to inspection Neck Neck: Yes normal visual inspection Chest Chest palpation & inspection: normal inspection of the chest Resp Auscultation: clear to auscultation bilaterally Cardio Palpation: normal PMI Heart sounds: S1 normal heart sound present, S2 normal heart sound present, no gallops, no murmurs and no rubs GI Palpation (GI): Soft to palpation Back/Spine/Pelvis Other: unremarkable Skin General skin exam: no rashes or lesions noted Neuro General: patient oriented x3 Extrem General: Yes normal to inspection Psych Mental Status: mental status grossly normal Office Procedures EKG Details: EKG with sinus rhythm at 68/Min; minimal criteria for LVH; no significant ST-T changes and otherwise unremarkable[place] [id number], Complete Assessment & Plan Assessment & Plan (1) Atherosclerotic cardiovascular disease: Code(s): I25.10 - Atherosclerotic heart disease of chicken ranch coronary artery without angina pectoris Category: Medical Plan: Myocardial perfusion [id number], mild intensity apical ischemia. Repeat study from 2022 with normal perfusion. Echocardiogram 2022-LVEF 55-60%; normal peak global longitudinal strain; no significant valvular issues. [id number] artery calcification. Clinically, no angina. Aggressive risk factor modification. (2) Type 2 diabetes mellitus with unspecified complications: Code(s): E11.8 - Type 2 diabetes mellitus with unspecified complications Category: Medical Plan: Most recent hemoglobin A1c is 7.9 %. Slightly higher than ideal. On metformin and Jardiance. (3) Other and unspecified hyperlipidemia: Code(s): E78.5 - Hyperlipidemia, unspecified Category: Medical Plan: Listed to be on high-dose statins as well as Zetia. However, not clear if he is actually taking Zetia or not. Last LDL is 157 mg/dL. Triglycerides 81 mg/dL. Discussed about injectable Repatha but he does not want them. Hence at least continue with lifestyle measures, activity and take the statins. Coding Level of Care Code Est Pt Level 4 (34641) Diagnoses Atherosclerotic cardiovascular disease I25.10 Type 2 diabetes mellitus with unspecified complications E11.8 Other and unspecified hyperlipidemia E78.5 CPT Codes EKG - CPT: 20788-[id number], Complete ([id number])
[2024-03-03 12:41] VITALS: BP 120/70; PULSE 68; BMI 22.9
== END 2024-03-03 13:23 | disposition home or self-care (01) ==
PROVIDERS: PCP Registered Nurse; Visit Provider Internal Medicine
DX: I25.10 Atherosclerotic heart disease of native coronary artery without angina pectoris (principal); E11.8 Type 2 diabetes mellitus with unspecified complications; E78.5 Hyperlipidemia, unspecified
CPT/HCPCS: 93010; 99214

== ENCOUNTER 2024-03-03 18:29 | Outpatient (REF) | payer MEDICARE, MEDICAID, SELFPAY | END 2024-03-03 18:30 | disposition home or self-care (01) | LOC: HO.HHCLNP 18:29 | PROVIDERS: Visit Provider Family Medicine | DX: I25.10 Atherosclerotic heart disease of native coronary artery without angina pectoris (principal); E78.5 Hyperlipidemia, unspecified; E11.8 Type 2 diabetes mellitus with unspecified complications; L02.91 Cutaneous abscess, unspecified | CPT/HCPCS: 87070; 87077; 87186; 87205; 93005; 99212 ==

== ENCOUNTER 2024-03-09 09:50 | Outpatient (RCR) | payer MEDICARE, MEDICAID, SELFPAY ==
--- NOTE | ~2024-03-09 | XR_ITS ---
EXAMINATION: XR FOOT, LEFT CLINICAL INFORMATION: Nonhealing wound COMPARISON: Left foot x-rays 02/12/2024 TECHNIQUE: AP, lateral, and oblique views of the left foot. FINDINGS: Bones of the midfoot are well aligned. No tarsal, metatarsal or phalangeal fracture. Mild hallux valgus formation the first toe. Persistent but slightly less prominent soft tissue swelling centered within the mid to distal foot. Some lucency along the plantar aspect in the region of the MTP joints suggests soft tissue wound. No radiopaque foreign body identified. Moderate degenerative changes of the midfoot. Prominent posterior and plantar calcaneal enthesophytes. XR/XR foot LT min 3V IMPRESSION: Persistent but slightly less prominent soft tissue swelling centered within the mid to distal foot. Some lucency along the plantar aspect in the region of the MTP joints suggests soft tissue wound.
== END 2024-07-24 13:58 | disposition home or self-care (01) ==
LOC: HO.WCC 09:50
PROVIDERS: PCP Registered Nurse; Visit Provider Physician Assistant
DX: Z09 Encounter for follow-up examination after completed treatment for conditions other than malignant neoplasm (principal); Z86.31 Personal history of diabetic foot ulcer; Z79.84 Long term (current) use of oral hypoglycemic drugs; Z79.85 Long-term (current) use of injectable non-insulin antidiabetic drugs; Z79.82 Long term (current) use of aspirin; Z79.899 Other long term (current) drug therapy
CPT/HCPCS: 11042; 73630; 99212

== ENCOUNTER 2024-07-03 08:15 | Outpatient (REF) | payer MEDICARE, MEDICAID, SELFPAY ==
[2024-07-03 08:41] LABS: MANUAL DIFF FLAG NO
[2024-07-03 08:51] LABS: Basophils Percent Auto 0.6 % (0-2); Eosinophils Absolute Auto 0.1 X10*3/uL (0.0-0.4); Eosinophils Percent Auto 2.9 % (0-4); Hematocrit 43.5 % (42.0-52.0); Hemoglobin 14.5 g/dl (14.0-18.0); Imm Gran Abs Auto 0.01 X10*3/uL (0.00-0.03); Imm Gran Pct Auto 0.3 % (0.0-0.4); Lymphocytes Absolute Auto 0.9 X10*3/uL (1.2-4.9); Lymphocytes Percent Auto 29.2 % (20-40); Mean Corpuscular HGB Conc 33.3 g/dl (31.0-36.0); Mean Corpuscular Hemoglobin 28.2 pg (27.0-33.0); Mean Corpuscular Volume 84.6 fL (80.0-98.0); Mean Platelet Volume 9.4 fL (9.4-12.4); Monocytes Absolute Auto 0.3 X10*3/uL (0.1-1.2); Monocytes Percent Auto 9.1 % (2-11); Neutrophils Absolute Auto 1.8 x10*3/uL (2.0-8.3); Neutrophils Percent Auto 57.9 % (45-73); Platelet Count 181 X10*3/uL (160-400); Red Blood Count 5.14 X10*6/uL (4.60-5.80); Red Cell Distribution Width 11.9 % (11.0-16.0); White Blood Count 3.1 X10*3/uL (4.8-10.8)
[2024-07-03 08:57] LABS: Estimated Average Glucose 186 mg/dL; Hemoglobin A1C 247.5062 umol/L; Hemoglobin A1c % 8.1 % (<6.0); Total Hemoglobin (HGBA1C) 3779.3818 umol/L
[2024-07-03 09:16] LABS: Appearance Urine Clear; Color Urine Yellow; Glucose Urine UA Negative (Negative); Leukocyte Esterase Urine Negative (Negative); Nitrite Urine Negative (Negative); PH 5.5 (5.0-9.0); Specific Gravity - Urine 1.015 (1.005-1.025); UMIC TRIGGER UA YES; Urine Blood Small (1+) (Negative); Urine Ketones Negative (Negative); Urine Protein Negative (Neg-Trace)
[2024-07-03 09:21] LABS: Parathyroid Hormone Intact 66.6 pg/mL (8.7-77.1)
[2024-07-03 09:25] LABS: Bacteria Urine None Seen (None Seen); Hyaline Casts Urine 0-2 /LPF (0-2); RBC Urine 0-2 /HPF (0-2); Squamous Epithelial Cell Urine 0-2 /HPF (0-2); WBC Urine 0-5 /HPF (0-5)
[2024-07-03 09:29] LABS: Anion Gap 14 (12-20); Blood Urea Nitrogen 20 mg/dL (9-16); Calcium 10.1 mg/dL (8.4-10.2); Carbon Dioxide 25 mmol/L (22-29); Chloride 103 mmol/L (96-108); Cholesterol 182 mg/dL (<200); Estimated Glomerular Filt Rate > 60; HDL Cholesterol 53 mg/dL (>40); Iron 85 mcg/dL (45-160); LDL Cholesterol Calculated 114 mg/dL (<100); Magnesium 2.1 mg/dL (1.6-2.6); Percent Iron Saturation 29 % (15-50); Potassium 4.5 mmol/L (3.3-5.1); Sodium 137 mmol/L (135-145); Total Iron Binding Capacity 289 mcg/dL (228-428); Triglycerides 77 mg/dL (<150); Unsaturated Iron Binding 204 ug/dL; Uric Acid 6.1 mg/dL (3.4-7.0)
[2024-07-03 09:46] LABS: Vitamin D 25-OH Total 29.2 ng/mL (>30)
[2024-07-03 09:55] LABS: Creatinine Urine 88.89 mg/dL; Total Protein Urine Random < 7 mg/dL (<12)
== END 2024-07-03 08:16 | disposition home or self-care (01) ==
LOC: HO.LAB 08:15
PROVIDERS: PCP Registered Nurse; Visit Provider Physician Assistant
DX: N18.2 Chronic kidney disease, stage 2 (mild) (principal); I10 Essential (primary) hypertension; E11.9 Type 2 diabetes mellitus without complications; R80.9 Proteinuria, unspecified
CPT/HCPCS: 36415; 80051; 80061; 81001; 82306; 82310; 82565; 82570; 83036; 83540; 83735; 83970; 84156; 84520; 84550; 85025

== ENCOUNTER 2024-08-13 11:43 | Outpatient (REF) | payer MEDICARE, MEDICAID, SELFPAY | END 2024-08-13 11:44 | disposition home or self-care (01) | LOC: HO.HHCX 11:43 | PROVIDERS: PCP Registered Nurse; Visit Provider Family Medicine | DX: R22.42 Localized swelling, mass and lump, left lower limb (principal); E11.610 Type 2 diabetes mellitus with diabetic neuropathic arthropathy; Z86.31 Personal history of diabetic foot ulcer | CPT/HCPCS: 73630 ==

== ENCOUNTER 2024-10-08 09:45 | Outpatient (REF) | payer MEDICARE, MEDICAID, SELFPAY ==
--- OUTSIDE RECORDS SUMMARY | 2024-10-08 09:53 | XMS_ITS | Encounter Summary ---
Author Organization [facility] Address [address] [place] [address] Phone Care Team Providers Care Toy Assembler Wood Name Role Phone [facility] Primary Care Provider [phone] Encounter Details Date Type Department Care Team (Late Contact Info) Description 07/07/2024 Documentation Only [facility] [address] [place] [address] Diane Morrison [address] [place] [address] Social History Tobacco Use Types Packs/Day Years Used Date Smoking Tobacco: Never Alcohol Use Standard Drinks/Week Comments No 0 (1 standard drink = 0.6 oz pur e alcohol) Sex and Gender Information Value Date Recorded Sex Assigned at Not on file Legal Sex Male 4:37 PM EST Gender Identity Not on file Sexual Orientation Not on file documented as of this encounter Plan of Treatment Upcoming Encounters Date Type Department Care Team (Late Contact Info) Description 03/24/2025 10:15 AM EDT Office Visit [facility] [address] [place] [address] Mick Badillo MD [address] [place] [address] [place] [address] documented as of this encounter Visit Diagnoses Not on filedocumented in this encounter Care Teams Toy Assembler Wood Relationship Specialty Start Date End Date [facility] [address] [place], [place] [phone] PCP - General 06/26/22 documented as of this encounter
--- OUTSIDE RECORDS SUMMARY | 2024-10-08 09:53 | XMS_ITS | Encounter Summary ---
Author Organization [facility] Address [address] [place] [address] Phone Care Team Providers Care Assembly Associate Name Role Phone [facility] Primary Care Provider [phone] Encounter Details Date Type Department Care Team (Late Contact Info) Description 09/02/2023 Orders Only [facility] [address] [place] [address] Hank Cho PA Chronic kidney disease, stage 2 (mild); Essential (primary) hypertension; Type 2 diabetes mellitus, not otherwise specified (HCC) Social History Tobacco Use Types Packs/Day Years [...] Visit [facility] [address] [place] [address] Mick Badillo MD [address] [place] [address] [place] [address] documented as of this encounter Visit Diagnoses Diagnosis Chronic kidney disease, stage 2 (mild) Essential (primary) hypertension Type 2 diabetes mellitus, not otherwise specified (HCC) documented in this encounter Care Teams Assembly Associate Relationship Specialty Start Date End Date [facility] [address] [place] [id number] PCP - General 06/26/22 documented as of this encounter
--- OUTSIDE RECORDS SUMMARY | 2024-10-08 09:53 | XMS_ITS | Encounter Summary ---
Author Organization [facility] Address [address] [place] [address] Phone Care Team Providers Care Material Expediter Name Role Phone [facility] Primary Care Provider [phone] Encounter Details Date Type Department Care Team (Late Contact Info) Description 10/25/2023 Documentation Only [facility] [address] [place] [address] Diane Morrison [address] [place] [address] Social History Tobacco Use Types [...] Visit [facility] [address] [place] [address] Mick Badillo MD [address] [place] [address] [place] [address] documented as of this encounter Visit Diagnoses Not on filedocumented in this encounter Care Teams Material Expediter Relationship Specialty Start Date End Date [facility] [address] [place], [place] [phone] PCP - General 06/26/22 documented as of this encounter
--- OUTSIDE RECORDS SUMMARY | 2024-10-08 09:53 | XMS_ITS | Encounter Summary ---
Author Organization [facility] Address [address] [place] [address] Phone Care Team Providers Care Site Administrator Name Role Phone Kaden Maritza Primary Care Provider [phone] Encounter Details Date Type Department Care Team (Late Contact Info) Description 05/31/2022 Documentation Only [facility] [address] [place] [id number] Hank Cho PA Social History Tobacco Use Types Packs/Day Years [...] Visit [facility] [address] [place] [address] Mick Badillo MD [address] [place] [address] [place] [phone] documented as of this encounter Visit Diagnoses Not on filedocumented in this encounter Care Teams Site Administrator Relationship Specialty Start Date End Date Maritza Alfonso [address] [place] [address] PCP - General 06/26/22 documented as of this encounter
--- OUTSIDE RECORDS SUMMARY | 2024-10-08 09:53 | XMS_ITS | Encounter Summary ---
Author Organization [facility] Address [address] [place] [address] Phone Care Team Providers Care Devops Consultant Name Role Phone [facility] Primary Care Provider [phone] Encounter Details Date Type Department Care Team (Late Contact Info) Description 10/25/2023 Documentation Only [facility] [address] [place] [address] Diane Morrison [address] [place] [address] Social History Tobacco Use Types [...] Visit [facility] [address] [place] [address] Mick Badillo MD [address] [place] [address] [place] [address] documented as of this encounter Visit Diagnoses Not on filedocumented in this encounter Care Teams Devops Consultant Relationship Specialty Start Date End Date [facility] [address] [place], [place] [phone] PCP - General 06/26/22 documented as of this encounter
--- OUTSIDE RECORDS SUMMARY | 2024-10-08 09:53 | XMS_ITS | Encounter Summary ---
Author Organization [facility] Address [address] [place] [address] Phone Care Team Providers Care Service Technician Name Role Phone Kaden Maritza Primary Care Provider [phone] Encounter Details Date Type Department Care Team (Late Contact Info) Description 02/22/2023 Documentation Only [facility] [address] [place] [phone] Hank Cho PA Social History Tobacco Use [...] Visit [facility] [address] [place] [address] Mick Badillo MD [address] [place] [address] [place] [phone] documented as of this encounter Visit Diagnoses Not on filedocumented in this encounter Care Teams Service Technician Relationship Specialty Start Date End Date Maritza Alfonso [address] [place] [address] PCP - General 06/26/22 documented as of this encounter
--- OUTSIDE RECORDS SUMMARY | 2024-10-08 09:53 | XMS_ITS | Encounter Summary ---
Author Organization [facility] Address [address] [place] [address] Phone Care Team Providers Care Police Crime Scene Technician Name Role Phone [facility] [place] Primary Care Provider [phone] Encounter Details Date Type Department Care Team (Late Contact Info) Description 06/22/2022 Documentation Only [facility] [address] [place] [address] Hank Cho PA Social History Tobacco Use [...] Visit [facility] [address] [place] [address] Mick Badillo MD [address] [place] [address] [place] [phone] documented as of this encounter Visit Diagnoses Not on filedocumented in this encounter Care Teams Police Crime Scene Technician Relationship Specialty Start Date End Date Maritza Alfonso [address] [place] [address] PCP - General 06/26/22 documented as of this encounter
--- OUTSIDE RECORDS SUMMARY | 2024-10-08 09:53 | XMS_ITS | Encounter Summary ---
Author Organization [facility] Address [address] [place] [address] Phone Care Team Providers Care Anodiser Name Role Phone [facility] Primary Care Provider [phone] Encounter Details Date Type Department Care Team (Late Contact Info) Description 05/31/2022 Documentation Only [facility] [address] [place] [address] Alexander Zhou MD [address] [place] [address] [place] [address] Social History Tobacco Use Types Packs/Day Years [...] Visit [facility] [address] [place] [address] Mick Badillo MD [address] [facility] [place] [address] documented as of this encounter Visit Diagnoses Not on filedocumented in this encounter Care Teams Anodiser Relationship Specialty Start Date End Date [facility] [address] [place] [address] [id number] PCP - General 06/26/22 documented as of this encounter
--- OUTSIDE RECORDS SUMMARY | 2024-10-08 09:53 | XMS_ITS | Encounter Summary ---
Author Organization [facility] Address [address] [place] [address] Phone Care Team Providers Care Bottle House Pumper Name Role Phone Kaden Maritza Primary Care Provider [phone] Encounter Details Date Type Department Care Team (Late Contact Info) Description 06/01/2022 Documentation Only [facility] [address] [place] [phone] Hank Cho PA Social History Tobacco Use [...] Visit [facility] [address] [place] [address] Mick Badillo MD [address] [place] [address] [place] [phone] documented as of this encounter Visit Diagnoses Not on filedocumented in this encounter Care Teams Bottle House Pumper Relationship Specialty Start Date End Date Maritza Alfonso [address] [place] [address] PCP - General 06/26/22 documented as of this encounter
--- OUTSIDE RECORDS SUMMARY | 2024-10-08 09:53 | XMS_ITS | Encounter Summary ---
Author Organization [facility] Address [address] [place] [address] Phone Care Team Providers Care Behavioral Consultant Name Role Phone Kaden Maritza Primary Care Provider [phone] Encounter Details Date Type Department Care Team (Late Contact Info) Description 02/26/2023 Documentation Only [facility] [address] [place] [phone] Hank Cho PA Social History Tobacco Use [...] Visit [facility] [address] [place] [address] Mick Badillo MD [address] [place] [address] [place] [phone] documented as of this encounter Visit Diagnoses Not on filedocumented in this encounter Care Teams Behavioral Consultant Relationship Specialty Start Date End Date Maritza Alfonso [address] [place] [address] PCP - General 06/26/22 documented as of this encounter
--- OUTSIDE RECORDS SUMMARY | 2024-10-08 09:53 | XMS_ITS | Encounter Summary ---
Author Organization [facility] Address [address] [place] [address] Phone Care Team Providers Care Automation Operator Name Role Phone Kaden Maritza Primary Care Provider [phone] Encounter Details Date Type Department Care Team (Late Contact Info) Description 02/25/2023 Documentation Only [facility] [address] [place] [address] Hank Cho PA Social History Tobacco Use [...] Visit [facility] [address] [place] [address] Mick Badillo MD [address] [place] [address] [place] [phone] documented as of this encounter Visit Diagnoses Not on filedocumented in this encounter Care Teams Automation Operator Relationship Specialty Start Date End Date Maritza Alfonso [address] [place] [address] PCP - General 06/26/22 documented as of this encounter
--- OUTSIDE RECORDS SUMMARY | 2024-10-08 09:53 | XMS_ITS | Encounter Summary ---
Author Organization [facility] Address [address] [place] [address] Phone Care Team Providers Care Shoe Maker Name Role Phone [facility] Primary Care Provider [phone] Encounter Details Date Type Department Care Team (Late Contact Info) Description 06/29/2024 Orders Only [facility] [address] [place] [address] Hank Cho PA Chronic kidney disease, stage 2 (mild); Type 2 diabetes mellitus, not otherwise specified (HCC); Essential (primary) hypertension; Microalbuminuria Social History Tobacco Use Types Packs/Day Years [...] [facility] [address] [place] [address] Mick Badillo MD [address] [place] [address] [place] [address] documented as of this encounter Visit Diagnoses Diagnosis Chronic kidney disease, stage 2 (mild) Type 2 diabetes mellitus, not otherwise specified (HCC) Essential (primary) hypertension Microalbuminuria documented in this encounter Care Teams Shoe Maker Relationship Specialty Start Date End Date [facility] [address] [place] [address] PCP - General 06/26/22 documented as of this encounter
--- OUTSIDE RECORDS SUMMARY | 2024-10-08 09:54 | XMS_ITS | Encounter Summary ---
Author Organization [employer] Address [address] [facility] 7[address] [place] [address] Care Team Providers Care Maintenance Worker Name Role Phone [facility] Primary Care Provider [phone] Reason for Visit * Reason Onset Date Comments MRI FOOT ORDER 10/07/2024 Encounter Details Date Type Department Care Team ([facility] st Contact Info) Description 10/07/2024 Telephone [facility] [address] [place] [address] [facility] [place] [address] [place] [address] MRI FOOT ORDER Social History Tobacco Use Types Packs/Day Years Used Date Smoking Tobacco: Never Smokeless Tobacco: Never Alcohol Use Standard Drinks/Week Comments Never 0 (1 standard drink = 0.6 oz pur e alcohol) Alcohol Answer Date Recorded Frequency of Alcohol Consumption Not on file 01/15/2024 Average Number of Drinks Not on file 024 Frequency of Binge Drinking Not on file 12/31 Score 0 01/15/2024 Depression Answer Date Recorded Patient Health Questionnaire-9 Score 0 01/15/2024 Patient Health Questionnaire-9 Score 0 01/15/2024 Last PHQ-9: Questionnaire Data Not on file 0 01/15/2024 Housing Stability Answer Date Recorded What is your housing situation today? I have becky alvarado 06/17/[address] you li ve. Do you have problems with any of the following? None of the above 06/17/2023 Food Insecurity Answer Date Recorded Within the past 12 months, y ou worried that your food would run out before you got money to buy more: Never True 06/17/2023 Within the past 12 months,th e food you bought just didn't last and you didn't have enough money to get more: Never True Transportation Answer Date Recorded In the past 12 months, has l ack of transportation kept you from medical appts, meetings, work or from getting things needed for daily living? No 06/17/2023 Utilities Answer Date Recorded In the past 12 months, has t he electric, gas, oil or water company threatened to shut off services in your home? No 06/17/2023 Depression Answer Date Recorded Patient Health Questionnaire-2 Score 0 01/15/2024 Sex and Gender Information Value Date Recorded Sex Assigned at Male 07/02/2022 10:21 AM EDT Legal Sex Male 10:21 AM EDT Gender Identity Male 07/02/2022 10:21 AM EDT Sexual Orientation Choose not to disclose 2021 10:21 AM EDT documented as of this encounter Miscellaneous Notes * Telephone Encounter - Lulu Ontiveros - 10/07/2024 4:11 PM EST Incoming fax from [facility], Order needs to be with & without contrast documented in this encounter Plan of Treatment Upcoming Encounters Date Type Department Care Team (Late st Contact Info) Description 10/26/2024 9:45 AM EST Office Visit [facility] [address] [place] [address] Maritza Alfonso FNP [address] [place] [address] documented as of this encounter Visit Diagnoses Not on filedocumented in this encounter Additional Health Concerns Assessment Noted Time PHQ-9 Depression Total Score: 0 01/15/20 9:49 AM EDT documented as of this encounter Care Teams Maintenance Worker Relationship Specialty Start Date End Date Maritza Alfonso FNP [address] [place] [address] PCP - General Family Medicine 05/24/22 documented as of this encounter
--- OUTSIDE RECORDS SUMMARY | 2024-10-08 09:54 | XMS_ITS | Encounter Summary ---
Author Organization [employer] Address [address] [place] [address] Care Team Providers Care Wedding Consultant Name Role Phone [facility] Primary Care Provider Reason for Visit * Reason Onset Date Comments Referral 07/03/2024 Encounter Details Date Type Department Care Team ([facility] st Contact Info) Description 07/03/2024 Telephone [facility] [address] [place], [place] [phone] [facility] [address] [place] [address] Referral Social History Tobacco Use Types Packs/Day Years [...] encounter Miscellaneous Notes * Telephone Encounter - Nemo Friedman - 07/03/2024 11:20 AM EDT Patient calling requesting PT1 Home Address verified: Y/N: Yes Provider name or facility name: [facility] Escort needed: Y/N: No Do you have a wheelchair: Y/N: No If yes- Manual or electric: Visits: (amount of visits) ( x monthly, weekly, daily) documented in this encounter Plan of Treatment Upcoming Encounters Date Type Department Care Team (Late st Contact Info) Description 10/26/2024 9:45 AM EST Office Visit [facility] [address] [place] [address] Maritza Alfonso FNP [address] [place] [address] documented as of this encounter Visit Diagnoses Not on filedocumented in this encounter Additional Health Concerns Assessment Noted Time PHQ-9 Depression Total Score: 0 01/15/20 9:49 AM EDT documented as of this encounter Care Teams Wedding Consultant Relationship Specialty Start Date End Date Maritza Alfonso FNP [address] [place] [address] PCP - General Family Medicine 05/24/22 documented as of this encounter
--- OUTSIDE RECORDS SUMMARY | 2024-10-08 09:54 | XMS_ITS | Encounter Summary ---
Author Organization [employer] Address [address] [place] [address] Care Team Providers Care Synthetic Soil Blocks Pulper Name Role Phone [facility] Primary Care Provider [phone] Encounter Details Date Type Department Care Team ([facility] st Contact Info) Description 07/29/[address] [facility] [address] [place], [place] [phone] [facility] [address] [place] [address] Neoplasm of uncertain behavior (Primary Dx) Social History Tobacco Use Types Packs/Day Years Used Date Smoking Tobacco: Never Smokeless Tobacco: Never Alcohol Use Standard Drinks/Week Comments Never 0 (1 standard drink = 0.6 oz pur e alcohol) Depression Answer Date Recorded Patient Health Questionnaire-9 Score 4 04/03/2023 Housing Stability Answer Date Recorded What is [...] Answer Date Recorded Patient Health Questionnaire-2 Score 2 04/03/2023 Sex and Gender Information Value Date Recorded Sex Assigned at Male 07/02/2022 10:21 AM EDT Legal Sex Male 10:21 AM EDT Gender Identity Male 07/02/2022 10:21 AM EDT Sexual Orientation Choose not to disclose 2021 10:21 AM EDT documented as of this encounter Plan of Treatment Upcoming Encounters Date Type Department Care Team (Late st Contact Info) Description 10/26/2024 9:45 AM EST Office Visit 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
--- OUTSIDE RECORDS SUMMARY | 2024-10-08 09:54 | XMS_ITS | Encounter Summary ---
Author Organization [employer] Address [address] [facility] 7t [place] [address] Care Team Providers Care Polysomnograph Tech Name Role Phone [place] [facility] Primary Care Provider [phone] Reason for Referral * Consultation (Routine) - Closed Specialty Diagnoses / Procedures Referred By Contac t Referred To Contact Podiatry Diagnoses Localized swelling of left foot Charcot foot due to diabetes mellitus (CMS/HCC) Hx of diabetic foot ulcer Catarina Samayoa MD [address] [place] [address] Phone: tel: fax: [facility] [address] Phone: tel: fax: Referral ID Status Reason Start Date Expiration Date V isits Requested Visits Authorized [id number] Closed Specialty Services Required 08/13/2024 08/13/2025 1 1 Reason for Visit * Reason Comments Foot Pain Encounter Details Date Type Department Care Team (Late st Contact Info) Description 08/13/2024 1:00 PM EST Office Visit [facility] [address] [place] [address] [phone] Catarina Samayoa MD [address] [place] [address] [phone] Localized swelling of left foot (Primary Dx); Charcot foot due to diabetes mellitus (CMS/HCC); Hx of diabetic foot ulcer Social History Tobacco Use Types Packs/Day Years [...] your housing situation today? I have becky jenny 06/17/[address] you li [...] AM EDT documented as of this encounter Last Filed Vital Signs Vital Sign Reading Time Taken Comments Blood Pressure 136/77 08/13/2024 11:17 AM EST Pulse 81 08/13/2024 11:17 AM EST Temperature 35.9 ??C (96.7 ??F) 08/13/2024 11:[address] Respiratory Rate 17 08/13/2024 11:17 AM EST Oxygen Saturation 97% 08/13/2024 11:17 AM EST Inhaled Oxygen Concentration - - Weight 76 kg (167 lb 9.6 oz) 08/13/2024 11:17 AM EST Height - - Body Mass Index 22.73 05/20/2024 3:02 PM EDT documented in this encounter Progress Notes * [place] [facility] - 08/13/2024 1:00 PM EST Images from the original note were not included. Subjective Patient ID: Néstor Hardin is a 63 y.o. male with PMHx of T2DM, CKD, CAD, and hx of osteomyelitis with resection of right great toe who presents to walk in clinic for Left Foot Pain. Seen at [facility] 02/12/24, per triage: Per pt having ulcer on left foot since August. Per pt has had issues with drainage. Per pt no discharge today. Had discharge yesterday that was clear. No spreading redness. Mild swelling. No pain. Had chills last night. Pt reports completed las course of doxycycline rx on 01/14 visit and has continued topical ointment. Pt has upcoming wound care center appt on 02/17 at 9am. Pt was dx with localized left foot swelling and sent to [facility] ED for further evaluation. Left Foot XR 03/23/24 IMPRESSION: Persistent but slightly less prominent soft tissue swelling centered within the mid to distal foot. Some lucency along the plantar aspect in the region of the MTP joints suggests soft tissue wound. Pt reports he was following with wound care form his chronic ulcerative wound on left foot but had his last wound care appt. in 04/2024. He notes the past 3 days he has had pain, fever and swelling tothe left foot. Reports decreased sensation in his left foot. 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 Review of Systems Constitutional: Negative for fever and unexpected weight change. Respiratory: Negative for shortness of breath. Cardiovascular: Negative for chest pain. Gastrointestinal: Negative for abdominal pain. Genitourinary: Negative for difficulty urinating. Musculoskeletal: Swelling and pain to foot Objective Visit Vitals BP 136/77 (BP Location: Left arm, Patient Position: Sitting, BP Cuff Size: Adult) Pulse 81 Temp 96.7 ??F (35.9 ??C) (Temporal) Resp 17 Body mass index is 22.73 kg/m??. Physical Exam Cardiovascular: Rate and Rhythm: Normal rate and regular rhythm. Heart sounds: Normal heart sounds. Pulmonary: Effort: Pulmonary effort is normal. Breath sounds: Normal breath sounds. Feet: Comments: Left foot great toe: thin scar at base. Swelling and slight warmth over top of left foot.See images. Problem List Items Addressed This Visit Localized swelling of left foot - Primary Localized swelling over top of left foot with slight warmth. See image in chart 08/13/24. -ordered XR left foot 08/13/24 -start Augmentin 875-125 mg BID, for 2 weeks. -referred to Podiatry 08/13/24 -will f/u in same day care on 08/17/2024 Relevant Medications amoxicillin-clavulanate (Augmentin) 875-125 MG tablet Other Relevant Orders XR Foot 3+ Views Left Referral to Podiatry Other Visit Diagnoses Charcot foot due to diabetes mellitus ([facility]) Relevant Medications amoxicillin-clavulanate (Augmentin) 875-125 MG tablet Other Relevant Orders XR Foot 3+ Views Left Referral to Podiatry Hx of diabetic foot ulcer Relevant Medications amoxicillin-clavulanate (Augmentin) 875-125 MG tablet Other Relevant Orders XR Foot 3+ Views Left Referral to Podiatry -No evidence of acute disease process. Suspect infectious process in left foot. Symptoms mild. -Will treat with abx. Ordered XR. Referred to Podiatry -ER precautions discussed. -Seek medical attention for worsening symptoms. Addendum 10/02/2509:50 AM X ray done 09/13/24, formally read and reported 10/02/24 XR/XR foot LT min 3V IMPRESSION: 1. Soft tissue swelling adjacent to the 1st metatarsophalangeal joint without adjacent periosteal reaction or osseous erosion. Early osteomyelitis may be occult on plain radiographs and, if there is persistent clinical concern, MRI could help further evaluate. 2. Moderate degenerative arthritis throughout the midfoot with more mild degenerative arthritis at the 1st metatarsophalangeal and interphalangeal joints. Pt missed follow up apts 08/19/24 and 09/25/24. Outreach done on 10/02/24 to let him know he needs tocome in to make sure his foot has healed otherwise we will need to further evaluate with MRI. Apt for 10/07/24 given. Referral for poidatry was done 08/14/24 and letter sent to call if he has not heardanything. I, Chanelle Lizama, am serving as a scribe to document services personally performed by Dr. Linn, based on the patient's response to questions by provider and providers statements to me. documented in this encounter Miscellaneous Notes * Assessment & Plan Note - Chanelle Lizama - 08/13/2024 11:36 AM ESTAssociated Problem(s): Localized swelling of left foot Localized swelling over top of left foot with slight warmth. See image in chart 08/13/24. -ordered XR left foot 08/13/24 -start Augmentin 875-125 mg BID, for 2 weeks. -referred to Podiatry 08/13/24 -will f/u in same day care on 08/17/2024 documented in this encounter Plan of Treatment Upcoming Encounters Date Type Department Care Team (Late st Contact Info) Description 10/26/2024 9:45 AM EST Office Visit [facility] [address] [place] [address] [facility] [address] [place] [address] Scheduled Referrals Name Type Priority Associated Diagnoses Orde r Schedule Referral to Podiatry Outpatient Referral Routine Localized swelling of left foot Charcot foot due to diabetes mellitus ([facility]) Hx of diabetic foot ulcer Expected: 08/13/2024 (Approximate), Expires: 08/13/2025 documented as of this encounter Procedures Procedure Name Priority Date/Time Associated Diagnosis Comments XR FOOT 3+ VIEWS LEFT Routine 08/13/2024 11:46 AM EST Localized swelling of left foot Charcot foot due to diabetes mellitus (CMS/HCC) Hx of diabetic foot ulcer documented in this encounter Results * XR Foot 3+ Views Left (08/13/2024 11:46 AM EST) Anatomical Region Laterality Modality Lower Extremities, Foot Left Radiogra phic Imaging 08/13/2024 11:4 6 AM EST Narrative 10/02/2024 9:19 AM EST ?[facility] ?[address] ?[place] [address] ?XRay Report ? Signed ? Patient: Octavio Néstor Hardin ?MR#: [id number] ?? [id number] ? : 1960 ?Acct:[id number] ? Age/Sex: 63 / M ?ADM Date: 08/13/24 ? Loc: HO.HHCX ? Attending Dr: Catarina Samayoa MD ? Ordering Physician: Catarina Samayoa MD ?? Date of Service: 08/13/24 ?? Procedure(s): XR foot LT min 3V ?? Accession Number(s): [id number] ? cc: Catarina Samayoa MD; [place] [facility] ? EXAMINATION: ?? XR FOOT LEFT ? CLINICAL INFORMATION: ?? Pain. ? COMPARISON: ?? X-ray left foot 03/23/2024. ? TECHNIQUE: ?? AP, lateral, and oblique views of the left foot. ? FINDINGS: ?? Soft tissue swelling adjacent to the 1st metatarsophalangeal joint. No ?? adjacent periosteal reaction or osseous erosion. No acute fracture or ?? dislocation. Moderate osteoarthritis throughout the midfoot with more ?? mild osteoarthritis at the 1st metatarsophalangeal and interphalangeal ?? joints. Plantar and dorsal calcaneal spurs. ? XR/XR foot LT min 3V ?? IMPRESSION: ?? 1. Soft tissue swelling adjacent to the 1st metatarsophalangeal joint ?? without adjacent periosteal reaction or osseous erosion. Early ?? osteomyelitis may be occult on plain radiographs and, if there is ?? persistent clinical concern, MRI could help further evaluate. ?? 2. Moderate degenerative arthritis throughout the midfoot with more ?? mild degenerative arthritis at the 1st metatarsophalangeal and ?? interphalangeal joints. ? Electronically signed by: ??Sam Gillette MD ??10/02/2024 09:16 AM EST ? Dictated By: ?Sam Gillette MD ? Signed By: ?<Electronically signed by Sam Gillette MD in OV> ?10/02/24 0916 ? DD/ 1146 ? TD/TT: 08/13/24 1148 ? Senior Buyer: SR ? Procedure Note Estephaniater, Image - 10/02/[address] [address] XRay Report Signed Patient: Néstor Chamorro LMR#: [id number] : 1Acct:[id number] Age/Sex: 63 / MADM Date: 08/13/24 [facility] Dr: Catarina Samayoa MD Ordering Physician: Catarina Samayoa MD Date of Service: 08/13/24 Procedure(s): XR foot LT min 3V Accession Number(s): [id number] cc: Catarina Samayoa MD; [facility] EXAMINATION: XR FOOT LEFT CLINICAL INFORMATION: Pain. COMPARISON: X-ray left foot 03/23/2024. TECHNIQUE: AP, lateral, and oblique views of the left foot. FINDINGS: Soft tissue swelling adjacent to the 1st metatarsophalangeal joint. No adjacent periosteal reaction or osseous erosion. No acute fracture or dislocation. Moderate osteoarthritis throughout the midfoot with more mild osteoarthritis at the 1st metatarsophalangeal and interphalangeal joints. Plantar and dorsal calcaneal spurs. XR/XR foot LT min 3V IMPRESSION: 1. Soft tissue swelling adjacent to the 1st metatarsophalangeal joint without adjacent periosteal reaction or osseous erosion. Early osteomyelitis may be occult on plain radiographs and, if there is persistent clinical concern, MRI could help further evaluate. 2. Moderate degenerative arthritis throughout the midfoot with more mild degenerative arthritis at the 1st metatarsophalangeal and interphalangeal joints. Electronically signed by: Sam Gillette MD 10/02/2024 09:16 AM EST Dictated By: Sam Gillette MD Signed By: <Electronically signed by Sam Gillette MD in OV> 10/02/24 0916 DD/ 1146 TD/TT: 08/13/24 1148 Senior Buyer: Catarina Samayoa MD IMG XR PROCEDURES Final Re sult documented in this encounter Visit Diagnoses Diagnosis Localized swelling of left foot- Primary Charcot foot due to diabetes mellitus (CMS/HCC) Hx of diabetic foot ulcer documented in this encounter Additional Health Concerns Assessment Noted Time PHQ-9 Depression Total Score: 0 01/15/20 24 9:49 AM EDT documented as of this encounter Care Teams Polysomnograph Tech Relationship Specialty Start Date End Date Maritza Alfonso FNP [address] [place] [id number] PCP - General Family Medicine 05/24/22 documented as of this encounter
--- OUTSIDE RECORDS SUMMARY | 2024-10-08 09:54 | XMS_ITS | Encounter Summary ---
Author Organization [facility] Address [address] [place] [address] Phone Care Team Providers Care Tear Down Matcher Name Role Phone Kaden Maritza Primary Care Provider [phone] Encounter Details Date Type Department Care Team (Late Contact Info) Description 05/28/2022 Documentation Only [facility] [address] [place] [phone] Hank Cho PA Social History Tobacco Use [...] Visit [facility] [address] [place] [address] Mick Badillo MD [address] [place] [address] [place] [phone] documented as of this encounter Visit Diagnoses Not on filedocumented in this encounter Care Teams Tear Down Matcher Relationship Specialty Start Date End Date Maritza Alfonso [address] [place] [address] PCP - General 06/26/22 documented as of this encounter
--- OUTSIDE RECORDS SUMMARY | 2024-10-08 09:54 | XMS_ITS | Encounter Summary ---
Author Organization [employer] Address [address] [facility] [address] 7[address] [place] [address] Care Team Providers Care Revenue Enforcement Agent Name Role Phone [facility] Primary Care Provider [phone] Encounter Details Date Type Department Care Team (Late st Contact Info) Description 07/18/2023 Abstract [facility] [address] [place], [place] [phone] Mireya Khalil Social History Tobacco Use Types Packs/Day Years [...] Description 10/26/2024 9:45 AM EST Office Visit [facility] [address] [place] [address] Maritza Alfonso FNP [address] [place] [address] documented as of this encounter Visit Diagnoses Not on filedocumented in this encounter Additional Health Concerns Assessment Noted Time PHQ-9 Depression Total Score: 4 04/03/20 23 10:08 AM EDT documented as of this encounter Care Teams Revenue Enforcement Agent Relationship Specialty Start Date End Date Maritza Alfonso FNP [address] [place] [address] PCP - General Family Medicine 05/24/22 documented as of this encounter
--- OUTSIDE RECORDS SUMMARY | 2024-10-08 09:54 | XMS_ITS | Encounter Summary ---
Author Organization [employer] Address [address] [facility] [address] 7[address] [place] [address] Care Team Providers Care Forestry Contractor Name Role Phone [facility] Primary Care Provider [phone] Reason for Visit * Reason Onset Date Comments Results 10/02/2024 Encounter Details Date Type Department Care Team ([facility] st Contact Info) Description 10/02/2024 Telephone [facility] [address] [place], [place] [phone] Rosa Solano RN [address] [place] [address] Results Social History Tobacco Use Types Packs/Day Years [...] encounter Miscellaneous Notes * Telephone Encounter - Rosa Solano RN - 10/02/2024 9:47 AM EST XR results: Early osteomyelitis may be occult on plain radiographs and, if there is persistent clinical concern, MRI could help further evaluate. Discussed with order provider who recommended DANNI appt with PCP if possible for foot check. Telephone call placed to pt. Informed that XR showed possible infection of the bone in his foot. Booked to see PCP next Saturday 10/07 for foot check. Pt agreeable. Will restask to make sure he attends that appt. documented in this encounter Plan of Treatment Upcoming Encounters Date Type Department Care Team (Late st Contact Info) Description 10/26/2024 9:45 AM EST Office Visit [facility] [address] [place] [address] Mcclellan Maritza PAPER MAKING MACHINE OPERATOR [address] [place] [address] documented as of this encounter Visit Diagnoses Not on filedocumented in this encounter Additional Health Concerns Assessment Noted Time PHQ-9 Depression Total Score: 0 01/15/20 9:49 AM EDT documented as of this encounter Care Teams Forestry Contractor Relationship Specialty Start Date End Date Kaden IVONNE Salas [address] [place] [address] PCP - General Family Medicine 05/24/22 documented as of this encounter
--- OUTSIDE RECORDS SUMMARY | 2024-10-08 09:54 | XMS_ITS | Clinical Summary ---
Author Organization [facility], Address [address] [place] [address] [place] [address] Phone Care Team Providers Care Tourist Agent Name Role Phone [facility] Primary Care Provider [phone] Allergies Active Allergy Reactions Criticality Noted Date Comments Piperacillin-Tazobactam In Dex Other (see comments) 05/15/2024 Vancomycin Itching 05/16/2022 Medications Aspirin Adult Low Strength 81 MG EC tablet Take 81 mg by mouth 02/04/2020 Active atorvastatin (LIPITOR) 80 MG tablet Take 80 mg by mouth at bed time 02/04/2020 Active FREESTYLE LITE test strip USE TO TEST BLOOD SUGAR FOUR TIMES DAILY 02/04/2020 Active isosorbide mononitrate (IMDUR) 30 MG 24 hr tablet Take 30 mg by mouth 1 (one) time each day 12/01/2019 Active TRUEplus Lancets 33G misc TEST BLOOD SUGAR FOUR TIMES DAILY 02/04/2020 Active metoprolol succinate XL (TOPROL-XL) 50 MG 24 hr tablet Take 50 mg by mouth 1 (one) time each day 02/04/2020 Active cholecalciferol (VITAMIN D-3) 25 MCG (1000 UT) capsule Take 1 capsule by mouth 1 (one) time each day 05/27/2015 Active doxycycline (VIBRAMYCIN) 100 MG capsule Take 100 mg by mouth in the morning and 100 mg in the evening. Take with a full glass of water and do not lie down for at least 30 minutes after.. Active Empagliflozin (Jardiance) 25 MG tablet Take 25 mg by mouth 1 (one) time each day in the morning Active ezetimibe (ZETIA) 10 MG tablet Take 10 mg by mouth 1 (one) time each day Active Trulicity 0.75 MG/0.5ML solution pen-injector Inject 0.75 mg under the skin 10/16/2023 Active metFORMIN XR (GLUCOPHAGE-XR) 500 MG 24 hr tablet Take 1 tablet (500 mg total) by mouth in the morning and 1 tablet (500 mg total) in the evening. 07/08/2024 Active Active Problems Problem Noted Date Diagnosed Date Renal disorder due to type 2 diabetes mellitus 0 05/02/2020 Chronic kidney disease, stage 2 (mild) 0 Essential (primary) hypertension 11/02/2019 Microalbuminuria 05/15/2012 Type 2 diabetes mellitus Overview (02/26/2023): retinopathy, neuropathy, Resolved Problems Problem Noted Date Diagnosed Date Resolved Date Renal stone 11/11/2020 05/18/2021 Microalbuminuria due to type 2 diabetes mellitus 11/02/2019 05/18/2021 Type 2 diabetes mellitus wit h diabetic chronic kidney disease 11/02/2019 05/18/2021 Encounters Date Type Department Care Team Description 07/08/2024 2:00 PM EST Office Visit [facility], [address] [place] [address] Hank Cho PA Chronic kidney disease, stage 2 (mild) (Primary Dx); Essential (primary) hypertension; Type 2 diabetes mellitus, not otherwise specified (HCC) from Last 3 Months Immunizations Name Administration Dates Next Due Influenza Split 07/07/2013,05/15/2012 Influenza Split High Dose Preservative Free IM 1 Influenza, MDCK, PF, Quadrivalent 07/22/2021 Influenza, Quadrivalent, Preservative Free 06/18,08/13/2016 Influenza, Quadrivalent, With Preservative 06/21 Pneumococcal Polysaccharide 06/19/2014, 2 Tdap 04/25/2020,11/23/2013 Zoster 07/21/2020,05/19/2020 Family History Medical History Relation Comments Diabetes Child son Diabetes Father Diabetes Mother Heart disease Mother Heart disease Sibling 1 Kidney disease Sibling 1 sister, diabetic nephropathy Kidney disease Sibling 2 sister Hypertension Sibling 3 sister Heart disease Sibling 4 sister Cancer Sibling 5 sister Diabetes Sibling 6 sister's, brothe r Relation Status Comments Child Father Unknown Mother Unknown Sibling 1 Sibling 2 Sibling 3 Sibling 4 Sibling 5 Sibling 6 Social History Tobacco Use Types Packs/Day Years Used Date Smoking Tobacco: Never Alcohol Use Standard Drinks/Week Comments No 0 (1 standard drink = 0.6 oz pur e alcohol) Sex and Gender Information Value Date Recorded Sex Assigned at Not on file Legal Sex Male 4:37 PM EST Gender Identity Not on file Sexual Orientation Not on file Last Filed Vital Signs Vital Sign Reading Time Taken Comments Blood Pressure 122/68 07/08/2024 2:03 PM EST Pulse 68 11/02/2019 1:30 PM EST Temperature - - Respiratory Rate 16 11/02/2019 1:30 PM EST Oxygen Saturation - - Inhaled Oxygen Concentration - - Weight 76.2 kg (168 lb) 07/08/2024 2:03 PM EST Height 182.9 cm (6') 07/08/2024 2:03 PM EST Body Mass Index 22.78 07/08/2024 2:03 PM EST Plan of Treatment Upcoming Encounters Date Type Department Care Team (Late st Contact Info) Description 03/24/2025 10:15 AM EDT Office Visit [facility], [address] [place] [phone] Mick Badillo MD [address] [place] [address] [place] [phone] Health Maintenance Due Date Last Done Comments Colorectal Cancer Screening: Annual FOBT 2009 Colorectal Cancer Screening: Colonoscopy 2009 Colorectal Cancer Screening: Sigmoidoscopy 2009 Pneumococcal Vaccine: Pediatrics (0 to 5 Years) and At-Risk Patients (6 to 64 Years) (3 of 3 - PCV) 06/19/2015 06/19/2014, 05/15/2012 Diabetes: Ophthalmology Exam 11/23/2019 Diabetes: Pedal Pulse Checked 11/23/2019 Diabetes: Sensory Foot Exam 11/23/2019 Diabetes: Visual Foot Exam 11/23/2019 Influenza Vaccine (#1) 2024 3, 07/22/2021, 06/18/2020, Additional history exists Diabetes: Hemoglobin A1C 08/19/2024 024, 10/16/2023, 12/31/2022, Additional history exists Hepatitis B Vaccine Aged Out No longe r eligible based on patient's age to complete this topic Procedures Procedure Name Priority Date/Time Associated Diagnosis Comments LAB SHREDDING MACHINE OPERATOR Routine 01/29/2018 12:00 AM EDT from Last 3 Months or Most Recently Relevant to Health Maintenance Results * Lab Quality Improvement Manager (01/29/2018 12:00 AM EDT) Hemoglobin A1C 7.8 % [facility] 01/29/2018 Kca Conversion LAB [id number] LICITED RESULTS Final Result [facility] from Last 3 Months or Most Recently Relevant to Health Maintenance Insurance MEDICAID [place] MEDICARE Care Teams Tourist Agent Relationship Specialty Start Date End Date [facility] [address] [place] [address] PCP - General 06/26/22
--- OUTSIDE RECORDS SUMMARY | 2024-10-08 09:54 | XMS_ITS | Encounter Summary ---
Author Organization [employer] Address [address] [facility] [address] [place] [address] Care Team Providers Care Aircraft Maintenance Manager Name Role Phone [facility] Primary Care Provider [phone] Encounter Details Date Type Department Care Team (Latest Contact Info) Description 10/07/2024 Travel Social History Tobacco Use Types Packs/Day Years [...] Description 10/26/2024 9:45 AM EST Office Visit [facility] [address] [place] [address] Maritza Alfonso FNP [address] [place] [address] documented as of this encounter Visit Diagnoses Not on filedocumented in this encounter Additional Health Concerns Assessment Noted Time PHQ-9 Depression Total Score: 0 01/15/20 24 9:49 AM EDT documented as of this encounter Care Teams Aircraft Maintenance Manager Relationship Specialty Start Date End Date Maritza Alfonso FNP [address] [place] [address] PCP - General Family Medicine 05/24/22 documented as of this encounter
--- OUTSIDE RECORDS SUMMARY | 2024-10-08 09:54 | XMS_ITS | Encounter Summary ---
Author Organization [facility] Address [address] [place] [address] Care Team Providers Care In Mold Coater Name Role Phone Maritza Alfonso Primary Care Provider [phone] Reason for Referral * Consultation (Routine) - Pending Review Specialty Diagnoses / Procedures Referred By Guanakito caro Referred To Contact Wound Care Diagnoses Wound of left foot Maritza Alfonso FNP [address] [place] [address] Phone: tel: fax: Referral ID Status Reason Start Date Expiration Date Visits Requested Visits Authorized [id number] Pending Review Specialty Services Required 10/07/2024 10/07/2025 1 1 * Imaging (STAT) - Authorized Specialty Diagnoses / Procedures Referred By Guanakito caro Referred To Contact Radiology Diagnoses Wound of left foot Procedures Mr Foot w/o Contrast Left Maritza Alfonso FNP [address] [place] [address] Phone: tel: fax: [facility] [address], [place] Phone: tel: fax: Referral ID Status Reason Start Date Expiration Date V isits Requested Visits Authorized [id number] Authorized 10/07/2024 10/07/2025 1 1 Reason for Visit * Reason Comments follow up foot ulcer Encounter Details Date Type Department Care Team (Late st Contact Info) Description 10/07/2024 11:00 AM EST Office Visit [facility] [address] [place] [address] MeadMaritza, DENTAL EQUIPMENT REPAIRER [address] [place] [address] Type 2 diabetes mellitus with hyperglycemia, without long-term current use of insulin (CMS/HCC) (Primary Dx); Wound of left foot Social History Tobacco Use Types Packs/Day Years Used Date Smoking Tobacco: Never Smokeless Tobacco: Never Tobacco Cessation:Counseling Given: Not Answered Alcohol Use Standard Drinks/Week Comments Never 0 [...] Sign Reading Time Taken Comments Blood Pressure 127/71 10/07/2024 10:50 AM EST Pulse 75 10/07/2024 10:50 AM EST Temperature 36.6 ??C (97.8 ??F) 10/07/2024 10:[address] Respiratory Rate 18 10/07/2024 10:50 AM EST Oxygen Saturation - - Inhaled Oxygen Concentration - - Weight 77.3 kg (170 lb 6.4 oz) 10/07/2024 10:50 AM EST Height 182.9 cm (6') 10/07/2024 10:50 AM EST Body Mass Index 23.11 10/07/2024 10:50 AM EST documented in this encounter Progress Notes * [facility], [facility] - 10/07/2024 11:00 AM EST SUBJECTIVE: Néstor Hardin is a 63 y.o. year old male with T2DM, CKD, CAD, hx of osteomyelitis with resection of right great toe who presents for left foot wound follow up . Denies recent illness, injury,or hospitalization. HPI 08/13/2024-presented to the walk-in center with fever and increased discharge, erythema, edema fromchronic wound of left foot. Wound is from a shave biopsy of suspicous lesion on plantar aspect of the left foot 08/13/2023 --biopsy results were benign however he has experienced delayed wound healing since this time. He was previously followed by [facility] wound care and podiatry but was lost to follow up since -04/2024. At [facility] in [place] He was prescribed 2 weeks of Augmentin and referred back to podiatry. X-ray at this time with concern for possible occult osteomyelitis. Today patient denies fever or chills discharge or increased swelling he has an appointment with podiatry scheduled for October. Social History Social History Narrative Current living environment: Has [employer]. Lives alone Children: 2 Activities: Enjoys walking, does weights in home. Watches basketball team Tobacco Use: None Alcohol Use: None Marijuana Use: None Other drug use: None Reproductive Health: Sexually Active: Not currently Partners are: AFAB Patient Active Problem List Diagnosis Coronary arteriosclerosis Diabetic polyneuropathy (CMS/HCC) Hypertriglyceridemia Essential (primary) hypertension Impotence of organic origin Leukopenia Microalbuminuria Moderate nonproliferative diabetic retinopathy (CMS/HCC) Type 2 diabetes mellitus (CMS/HCC) Chronic kidney disease, stage 2 (mild) Healthcare maintenance Diabetic ulcer of left foot associated with type 2 diabetes mellitus, limited to breakdown of skin (CMS/HCC) Localized swelling of left foot Past Surgical History: Procedure Laterality Date TOE AMPUTATION Family History Problem Relation Name Age of Onset Diabetes type II Mother Heart attack Mother Review of Systems Constitutional: Negative for activity change, diaphoresis, fatigue, fever and unexpected weight change. Eyes: Negative for visual disturbance. Respiratory: Negative for apnea, cough, chest tightness and shortness of breath. Cardiovascular: Negative for chest pain, palpitations and leg swelling. Gastrointestinal: Negative for abdominal pain and nausea. Neurological: Negative for dizziness, syncope, light-headedness and headaches. OBJECTIVE: Vitals: 10/07/24 1050 BP: 127/71 Pulse: 75 Resp: 18 Temp: 97.8 ??F (36.6 ??C) Physical Exam Constitutional: Appearance: Normal appearance. HENT: Head: Normocephalic. Right Ear: External ear normal. Left Ear: External ear normal. Nose: Nose normal. Eyes: Conjunctiva/sclera: Conjunctivae normal. Cardiovascular: Rate and Rhythm: Normal rate and regular rhythm. Heart sounds: Normal heart sounds. Pulmonary: Effort: Pulmonary effort is normal. Breath sounds: Normal breath sounds. Musculoskeletal: Right lower leg: No edema. Left lower leg: No edema. Comments: Small scar at biopsy site plantar aspect of left foot at base of first metatarsal. Hypertrophic skin changes mild increase warmth over MTP joint compared to surrounding tissue. Patient withtotal loss of protective sensation at baseline. Pedal pulses palpable Skin: General: Skin is warm and dry. Capillary Refill: Capillary refill takes less than 2 seconds. Neurological: General: No focal deficit present. Mental Status: He is alert and oriented to person, place, and time. Psychiatric: Mood and Affect: Mood normal. Behavior: Behavior normal. ASSESSMENT/PLAN 1. Type 2 diabetes mellitus with hyperglycemia, without long-term current use of insulin (CMS/HCC) (Primary) Lab Results Component Value Date HGBA1C 8.5 (A) 10/07/2024 HGBA1C 8.2 (A) 05/20/2024 HGBA1C 8.2 (A) 01/15/2024 Lab Results Component Value Date MICROALBUR 14.0 04/17/2023 CREATININE 1.09 10/01/2023 -Increase in A1c - Will increase Jardiance to 25 mg -Continue Trulicity 1.5 and metformin 500 mg twice daily Update routine labs Foot Exam: Total loss of protective sensation, hx of R toe amputation Eye Exam: Referred 05/2024 Statin: Yes ASA: Yes YASHIRA/ARB: Yes - POCT Glucose - POCT HGB A1C - empagliflozin (Jardiance) 25 MG; Take 1 tablet (25 mg) by mouth Once per day. Dispense: 30 tablet; Refill: 11 - Albumin, Random Urine W/Creatinine; Future - Comprehensive Metabolic Panel; Future - Lipid Panel, Standard; Future - Albumin, Random Urine W/Creatinine - Comprehensive Metabolic Panel - Lipid Panel, Standard 2. Wound of left foot -Concern for underlying osteomyelitis Stat MRI placed Referral back to wound care Strict ED precautions advised including fever chills increased swelling Patient verbalizes understanding and agrees to plan - CBC auto differential; Future - Sed Rate by Modified Westergren; Future - C-reactive Protein; Future - CBC auto differential - Sed Rate by Modified Westergren - C-reactive Protein - Mr Foot w/o Contrast Left; Future - Mr Foot w/o Contrast Left - Referral to Wound Clinic; Future - Referral to Wound Clinic Follow Up: Pending MRI results, 3 months routine for diabetes Current Outpatient Medications on File Prior to Visit Medication Sig Dispense Refill Aspirin Low Dose 81 MG EC tablet TAKE 1 TABLET BY MOUTH EVERY MORNING 90 tablet 1 atorvastatin (Lipitor) 80 MG tablet Take 1 tablet by mouth 1 (one) time each day. Blood Glucose Monitoring Suppl (True Metrix Meter) w/Device kit 1 kit before breakfast, before lunch, before evening meal, and at bedtime. 1 kit 0 D3 Super Strength 50 MCG (2000 UT) capsule TAKE 1 CAPSULE BY MOUTH EVERY MORNING 90 capsule 1 dulaglutide (Trulicity) 1.5 MG/0.5ML solution pen-injector Inject 1.5 mg under the skin 1 (one) time per week. 4 each 11 empagliflozin (Jardiance) 10 MG Take 1 tablet (10 mg) by mouth Once per day. 30 tablet 11 ezetimibe (Zetia) 10 MG tablet Take 1 tablet by mouth 1 (one) time each day. furosemide (Lasix) 40 MG tablet Take 1 tablet by mouth 1 (one) time each day. glucose blood (FREESTYLE LITE) test strip TEST BLOOD SUGAR 4 TIMES A DAY 100 strip 11 metFORMIN XR (Glucophage-XR) 500 MG 24 hr tablet Take 1 tablet (500 mg) by mouth 2 times daily. 360tablet 1 metoprolol succinate XL (Toprol-XL) 50 MG 24 hr tablet TAKE 1 TABLET BY MOUTH EVERY MORNING 90 tablet 1 TRUEplus Lancets 33G misc TEST BLOOD SUGAR 4 TIMES A DAY 100 each 11 UltiGuard SafePack Pen Needle 32G X 4 MM misc USE ONCE DAILY WITH INSULIN (Patient not taking: Reported on 10/16/2023) 100 each 3 No current facility-administered medications on file prior to visit. Gambian Translation: Provided by [facility] staff member KATTY Sahu documented in this encounter Plan of Treatment Upcoming Encounters Date Type Department Care Team (Late st Contact Info) Description 10/26/2024 9:45 AM EST Office Visit [facility] [address] [place] [address] Maritza Alfonso FNP [address] [place] [address] Scheduled Orders Name Type Priority Associated Diagnoses Orde r Schedule Albumin, Random Urine W/Creatinine Lab Routine Type 2 diabetes mellitus with hyperglycemia, without long-term current use of insulin ([facility]) Expected: 10/07/2024 (Approximate), Expires: 10/07/2025 Comprehensive Metabolic Panel Lab Routine Type 2 diabetes mellitus with hyperglycemia, without long-term current use of insulin ([facility]) Expected: 10/07/2024 (Approximate), Expires: 10/07/2025 Lipid Panel, Standard Lab Routine Type 2 diabetes mellitus with hyperglycemia, without long-term current use of insulin ([facility]) Expected: 10/07/2024 (Approximate), Expires: 10/07/2025 CBC auto differential Lab Routine Wound of left foot Expected: 10/07/2024 (Approximate), Expires: 10/07/2025 Sed Rate by Modified Westergren Lab Routine Wound of left foot Expected: 10/07/2024, Expires: 10/07/2025 C-reactive Protein Lab Routine Wound of left foot Expected: 10/07/2024 (Approximate), Expires: 10/07/2025 Mr Foot w/o Contrast Left Imaging STAT Wound of left foot Expected: 10/07/2024, Expires: 10/07/2025 Scheduled Referrals Name Type Priority Associated Diagnoses Orde r Schedule Referral to Wound Clinic Outpatient Referral Routine Wound of left foot Expected: 10/07/2024 (Approximate), Expires: 10/07/2025 documented as of this encounter Procedures Procedure Name Priority Date/Time Associated Diagnosis Comments POCT GLYCATED HEMOGLOBIN, TOTAL Routine 10/07/2024 11:04 AM EST Type 2 diabetes mellitus with hyperglycemia, without long-term current use of insulin ([facility]) POCT GLUCOSE Routine 10/07/2024 11:04 AM EST Type 2 diabetes mellitus with hyperglycemia, without long-term current use of insulin ([facility]) documented in this encounter Results * (ABNORMAL) POCT HGB A1C (10/07/2024 11:04 AM EST) Hemoglobin A1C 8.5(A) 4.0 - 6.0 % Blood 10/07/2024 11:0 4 AM EST [facility] POINT OF CARE TEST ENTER/EDIT ORDERABLES Final Result * POCT Glucose (10/07/2024 11:04 AM EST) Glucose Blood, POC 200 60 - 200 mg/dL Blood Capillary blood specimen / Unknown 10/07/2024 11:04 AM EST [facility] POINT OF CARE TEST ENTER/EDIT ORDERABLES Final Result documented in this encounter Visit Diagnoses Diagnosis Type 2 diabetes mellitus with hyperglycemia, without long-term current use of insulin ([facility])- Primary Wound of left foot documented in this encounter Additional Health Concerns Assessment Noted Time PHQ-9 Depression Total Score: 0 01/15/20 24 9:49 AM EDT documented as of this encounter Care Teams In Mold Coater Relationship Specialty Start Date End Date Maritza Alfonso FNP [address] [place] [id number] PCP - General Family Medicine 05/24/22 documented as of this encounter
--- OUTSIDE RECORDS SUMMARY | 2024-10-08 09:54 | XMS_ITS | Encounter Summary ---
Author Organization [employer] Address [address] [place] [address] Care Team Providers Care Emergency Medcl Emt Name Role Phone [facility] Primary Care Provider Reason for Visit * Reason Comments Med Refill Encounter Details Date Type Department Care Team ([facility] st Contact Info) Description 09/28/2024 Refill [facility] [address], [place] [phone] [facility] [address], [place] [phone] Social History Tobacco Use Types Packs/Day Years [...] 10/26/2024 9:45 AM EST Office Visit [facility] [address] [place] [address] KadenMaritza moore FNP [address] [place] [address] documented as of this encounter Visit Diagnoses Not on filedocumented in this encounter Additional Health Concerns Assessment Noted Time PHQ-9 Depression Total Score: 0 01/15/20 9:49 AM EDT documented as of this encounter Care Teams Emergency Medcl Emt Relationship Specialty Start Date End Date Maritza Alfonso FNP [address] [place] [address] PCP - General Family Medicine 05/24/22 documented as of this encounter
--- OUTSIDE RECORDS SUMMARY | 2024-10-08 09:54 | XMS_ITS | Clinical Summary ---
Author Organization [employer] Address [address] [place] [address] Care Team Providers Care Aged Or Disabled Care Worker Name Role Phone [facility] Primary Care Provider [phone] Allergies Active Allergy Reactions Criticality Noted Date Comments Piperacillin-Tazobactam In Dex Unknown 05/15 Vancomycin Itching 05/16/2022 Medications atorvastatin (Lipitor) 80 MG tablet Take 1 tablet by mouth 1 (one) time each day. 05/08/20 17 Active ezetimibe (Zetia) 10 MG tablet Take 1 tablet by mouth 1 (one) time each day. Active furosemide (Lasix) 40 MG tablet Take 1 tablet by mouth 1 (one) time each day. Active UltiGuard SafePack Pen Needle 32G X 4 MM miscIndications :Type 2 diabetes mellitus with diabetic chronic kidney disease, unspecified CKD stage, unspecified whether skilled nursing insulin use ([facility]) USE ONCE DAILY WITH INSULIN 100 each 3 08/16/20 22 Active Additional Information Patient not taking.Reported on 10/16/2023 Blood Glucose Monitoring Suppl (True Metrix Meter) w/Device kitIndications: Type 2 diabetes mellitus with hyperglycemia, with long-term current use of insulin ([facility]) 1 kit before breakfast, before lunch, before evening meal, and at bedtime. 1 kit 09/20/19 23 Active TRUEplus Lancets 33G miscIndications :Type 2 diabetes mellitus with hyperglycemia, with long-term current use of insulin ([facility]) TEST BLOOD SUGAR 4 TIMES A DAY 100 each 11 04/09/20 23 Active glucose blood (FREESTYLE LITE) test stripIndication s:Type 2 diabetes mellitus with hyperglycemia, with long-term current use of insulin ([facility]) TEST BLOOD SUGAR 4 TIMES A DAY 100 strip 04/09/20 23 Active dulaglutide (Trulicity) 1.5 MG/0.5ML solution pen-injectorInd ications:Type 2 diabetes mellitus with hyperglycemia, without long-term current use of insulin ([facility]) Inject 1.5 mg under the skin 1 (one) time per week. 4 each 01/15/20 24 Active metFORMIN XR (Glucophage-XR) 500 MG 24 hr tabletIndicatio ns:Type 2 diabetes mellitus with hypoglycemia without coma, without long-term current use of insulin ([facility]) Take 1 tablet (500 mg) by mouth 2 times daily. 360 tablet 05/20/20 24 Active metoprolol succinate XL (Toprol-XL) 50 MG 24 hr tablet TAKE 1 TABLET BY MOUTH EVERY MORNING 90 tablet 09/29/19 25 Active Aspirin Low Dose 81 MG EC tablet TAKE 1 TABLET BY MOUTH EVERY MORNING 90 tablet 09/29/19 25 Active D3 Super Strength 50 MCG (2000 UT) capsule TAKE 1 CAPSULE BY MOUTH EVERY MORNING 90 capsule 09/29/19 25 Active empagliflozin (Jardiance) 25 MGIndications:T ype 2 diabetes mellitus with hyperglycemia, without long-term current use of insulin ([facility]) Take 1 tablet (25 mg) by mouth Once per day. 30 tablet 10/07/19 25 2025 Active D3 Super Strength 50 MCG (2000 UT) capsule TAKE 1 CAPSULE BY MOUTH EVERY MORNING 90 capsule 12/06/19 24 2024 Discontinued metoprolol succinate XL (Toprol-XL) 50 MG 24 hr tablet TAKE 1 TABLET BY MOUTH EVERY MORNING 90 tablet 02/26/20 24 2024 Discontinued Aspirin Adult Low Strength 81 MG EC tablet TAKE 1 TABLET BY MOUTH EVERY MORNING 90 tablet 02/26/20 24 2024 Discontinued empagliflozin (Jardiance) 10 MGIndications:T ype 2 diabetes mellitus with hypoglycemia without coma, without long-term current use of insulin ([facility]) Take 1 tablet (10 mg) by mouth Once per day. 30 tablet 05/20/20 24 2024 Discontinued(R eorder (will not trigger notification to Pharmacy)) Active Problems Problem Noted Date Diagnosed Date Localized swelling of left foot 08/13/2024 Assessment & Plan (08/13/2024 11:39 AM EST): Localized swelling over top of left foot with slight warmth. See image in chart 08/13/24. -ordered XR left foot 08/13/24 -start Augmentin 875-125 mg BID, for 2 weeks. -referred to Podiatry 08/13/24 -will f/u in same day care on 08/17/2024 Diabetic ulcer of left foot associated with type 2 diabetes mellitus, limited to breakdown of skin 09/23/2023 Assessment & Plan (09/23/2023 2:55 PM EST): Minimal breakdown, will treat for S. infection and fu with PCP in 2w. Rx cefrdoxil x 10d + topical abs dressign bid Keep pressure off lef tfeet as much as he can, wear plantar pads if he needs to be up on his feet. FU with PCP in 2w if Discharge doesn't improve, continue wearing plantar pads Until lesion heals completely, encouraged tight control of DM. Healthcare maintenance 04/03/2023 Overview (04/03/2023): C-Scope: Declines PSA: 04/2023 Vision Exam: Referred to [facility] 04/2023 Immunizations:Declines PCV 20 04/2023 Assessment & Plan (04/13/2023 12:48 PM EDT): ?? Pt previously accepted cologuard for CRC screening. Today reports he no longer wants to complete screening. ?? Reviewed risks of forgoing screening including delay in diagnosis and/or treatment of potential malignancy which may adversely impact quality of life and reduce life expectancy. Pt verbalizes understanding. Coronary arteriosclerosis 08/13/2022 Overview (04/03/2023): ?? Folllowed by [facility] cardiology Dr. Morales ?? 01/2023 Negative Echo. Negative stress test Leukopenia 03/26/2022 Overview (04/03/2023): ?? Followed by hematology/oncology at [facility]. Last seen apporx 6 months ago. Reports was told he no longer needed follow up. Records not in chart. Assessment & Plan (04/13/2023 12:37 PM EDT): ?? Will check CBC for baseline ?? Will request heme/onc last notes Chronic kidney disease, stage 2 (mild) 0 Overview (04/03/2023): ?? Followed by nephrology Type 2 diabetes mellitus 07/19/2016 Overview (05/25/2024): Jardiance 10mg Metformin 500mgb.I.d Trulicity 1.5 Previously on insulin-discontinued due to well controlled blood sugar Foot Exam: Total loss of protective sensation, hx of R toe amputation Eye Exam: Referred back to [facility] optometry 04/2023 Statin: Yes ASA: Yes YASHIRA/ARB: Yes Encouraged regular aerobic exercise for improved glycemic control Encouraged daily foot checks Encouraged lean protein snacks and to avoid foods high in sugar and simple carbohydrates Treatment Goals: A1c goal: <7% FBG goal: <130 2 hour post prandial goal: <180 retinopathy, neuropathy, Assessment & Plan (04/03/2023 10:33 AM EDT): Lab Results Component Value Date HGBA1C 8.1 (A) 04/03/2023 ?? INCREASE januvia to 100mg daily ?? Continue current regimen ?? Complete previously ordered labs. Will re order to [facility] lab today Essential (primary) hypertension 08/12/2012 Overview (09/23/2023): ?? Metoprolol ?? Lasix ?? Followed by cardiology Maintenance: BMP: Pending Lipid Panel: Pending ASCVD Risk: Calculate pending updated labs EKG: Obtain baseline at f/u - Aerobic exercise to reduce BP. Initial goal of 30 min walk 3-5x/week. Increase as tolerated. - low-sodium diet (goal: <2g/day) and heart healthy diet such as DASH to reduce BP and prevent ASCVD. - Home BP monitoring 1-2 x day with goal of <140/90. - Seek immediate medical attention for chest pain, palpitations, SOB, syncope, or sudden changes in mental status. - Do not change or discontinue current prescriptions without first consulting health care provider Assessment & Plan (04/13/2023 12:36 PM EDT): ?? Well controlled ?? Continue current regimen ?? Follow up with cardiology as scheduled Hypertriglyceridemia 05/15/2012 Overview (09/23/2023): ?? Atorvastatin 80mg ?? 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 08/13/2022 04/03/2023 Diabetic nephropathy associa gina with type 2 diabetes mellitus 05/02/2020 04/03/2023 Diabetic foot ulcer 05/15/2012 04/03/20 23 Encounters Date Type Department Care Team Description 10/07/2024 11:00 AM EST Office Visit [facility] [address] [place] [id number] [facility] Type 2 diabetes mellitus with hyperglycemia, without long-term current use of insulin ([facility]) (Primary Dx); Wound of left foot 10/07/2024 Telephone [facility] [address], [place] [phone] [facility] MRI FOOT ORDER 10/07/2024 Travel 10/02/2024 Telephone [facility] [address], [place] [phone] Rosa Solano, RN Results 09/28/2024 Refill [facility] [address], [place] [phone] [facility] 08/13/2024 1:00 PM EST Office Visit [facility] [address], [place] [phone] Catarina Samayoa MD Localized swelling of left foot (Primary Dx); Charcot foot due to diabetes mellitus ([facility]/HCC); Hx of diabetic foot ulcer from Last 3 Months Immunizations Name Administration Dates Next Due Influenza Injectable Quadriv alant Preservative Free IIV4 MDCK 07/29/2023,07/22/2021 Influenza injectable quadriv alent IIV4 with preservative 06/21/2015 Influenza injectable quadrivalent preservative f ree 06/18/2020,08/13/2016 Influenza, High Dose Seasonal, Preservative Free 06/19/2015 Influenza, IIV3, injectable 07/06/2014 Influenza, Split (incl. purified surface antigen ) 07/07/2013,05/15/2012 Pneumococcal Polysaccharide PPSV23 06/19/2014, Tdap 04/25/2020,11/23/2013 Zoster, Recombinant 07/21/2020,05/19/2020 Zoster, live 07/21/2020,05/19/2020 Family History Medical History Relation Name Comments Diabetes type II Mother Heart attack Mother Relation Name Status Comments Mother Social History Tobacco Use Types Packs/Day Years [...] not to disclose 2021 10:21 AM EDT Last Filed Vital Signs Vital Sign Reading Time Taken Comments Blood Pressure 127/71 10/07/2024 10:50 AM EST Pulse 75 10/07/2024 10:50 AM EST Temperature 36.6 ??C (97.8 ??F) 10/07/2024 10:[address] Respiratory Rate 18 10/07/2024 10:50 AM EST Oxygen Saturation 97% 08/17/2024 11:13 AM EST Inhaled Oxygen Concentration - - Weight 77.3 kg (170 lb 6.4 oz) 10/07/2024 10:50 AM EST Height 182.9 cm (6') 10/07/2024 10:50 AM EST Body Mass Index 23.11 10/07/2024 10:50 AM EST Plan of Treatment Upcoming Encounters Date Type Department Care Team (Late st Contact Info) Description 10/26/2024 9:45 AM EST Office Visit [facility] [address] [place] [address] [facility] [address] [place] [address] Health Maintenance Due Date Last Done Comments CT Colonography 1960 Dental Oral Exam 1960 Dental Prophylaxis 1960 Dental X-Ray: Bitewings 1960 Dental X-Ray: Full Mouth 1960 FIT DNA/Cologuard 1960 FIT 1960 FOBT 1960 Sigmoidoscopy 1960 Pneumococcal Vaccine: 50+ Years (2 of 2 - PCV) 06/19/2015 06/19/2014, 05/15/2012 RSV Patients and Patients Aged 60 years or older (1 - Risk 60-74 years 1-dose series) 2020 Colonoscopy 12/29/2023 12/28/2013 Colorectal Cancer Screening 12/29/2023 Lipid Panel 02/22/2024 02/21/2023, 02/01, 05/24/2022, Additional history exists Diabetes: Urine Protein Screening 04/17/2024 04/17/2023, 11/21/2021, 12/01/2020, Additional history exists COVID-19 Vaccine ( season) 2024 02/13/2021, 01/16/2021 Diabetes: Hemoglobin A1C 01/04/2025 025, 05/20/2024, 01/15/2024, Additional history exists Alcohol/Substance Use Screening 01/14/2025 01/15/2024 Depression Screening 01/14/2025 01/15/2024, 01/15/20 Diabetes: Foot Exam 01/14/2025 01/15/2024, 01/15/2024, 01/15/2024, Additional history exists SDOH Screening 01/14/2025 01/15/2024 Eye Exam 07/08/2025 07/08/2024 Tobacco Screening 10/07/2025 10/07/2024 DTaP/Tdap/Td Vaccines (3 - Td or Tdap) 04/25/2030 04/25/2020, 11/23/2013 Zoster Vaccines Completed 07/21/2020, 07/03, 05/19/2020, Additional history exists HIV Screening Completed 05/24/2022 Hepatitis C Screening Completed 05/24/2022 Influenza Vaccine Completed 08/11/2024, , 07/22/2021, Additional history exists HIB Vaccines Aged Out No longer eligi ble based on patient's age to complete this topic HPV Vaccines Aged Out No longer eligi ble based on patient's age to complete this topic Hepatitis A Vaccines Aged Out No long er eligible based on patient's age to complete this topic Hepatitis B Vaccines Aged Out No long er eligible based on patient's age to complete this topic IPV Vaccines Aged Out No longer eligi ble based on patient's age to complete this topic Meningococcal Vaccine Aged Out No terrell warren eligible based on patient's age to complete this topic RSV under 20 months Aged Out No longe r eligible based on patient's age to complete this topic Rotavirus Vaccines Aged Out No longer eligible based on patient's age to complete this topic Procedures Procedure Name Priority Date/Time Associated Diagnosis Comments POCT GLYCATED HEMOGLOBIN, TOTAL Routine 10/07/2024 11:04 AM EST Type 2 diabetes mellitus with hyperglycemia, without long-term current use of insulin ([facility]) POCT GLUCOSE Routine 10/07/2024 11:04 AM EST Type 2 diabetes mellitus with hyperglycemia, without long-term current use of insulin ([facility]) XR FOOT 3+ VIEWS LEFT Routine 08/13/2024 11:46 AM EST Localized swelling of left foot Charcot foot due to diabetes mellitus ([facility]/HCC) Hx of diabetic foot ulcer AMB REFERRAL TO OPTOMETRY Routine 07/08/2024 Type 2 diabetes mellitus with hypoglycemia without coma, without long-term current use of insulin ([facility]) ALBUMIN, RANDOM URINE W/CREATININE Routine 04/17/2023 9:12 AM EDT DIRECT LDL Routine 02/21/2023 10:14 AM EDT ZZZ HISTORICAL HEPATITIS C AB W/REFL TO HCV RNA, QN, PCR Routine 05/24/2022 11:27 AM EDT HIV 1/2 ANTIGEN/ANTIBODY, FOURTH GENERATION W/RFL Routine 05/24/2022 11:27 AM EDT HM COLONOSCOPY Routine 12/28/2013 from Last 3 Months or Most Recently Relevant to Health Maintenance Results * (ABNORMAL) POCT HGB A1C (10/07/2024 11:04 AM EST) Hemoglobin A1C 8.5(A) 4.0 - 6.0 % Blood 10/07/2024 11:0 4 AM EST [facility] POINT OF CARE TEST ENTER/EDIT ORDERABLES Final Result * POCT Glucose (10/07/2024 11:04 AM EST) [facility] Glucose Blood, POC 200 60 - 200 mg/dL Blood Capillary blood specimen / Unknown 10/07/2024 11:04 AM EST [facility] POINT OF CARE TEST ENTER/EDIT ORDERABLES Final Result * XR Foot 3+ Views Left (08/13/2024 11:46 AM EST) Anatomical Region Laterality Modality Lower Extremities, Foot Left Radiogra phic Imaging 08/13/2024 11:4 6 AM EST Narrative 10/02/2024 9:19 AM EST ?[facility] ?[address] ?[place] [address] ?XRay Report ? Signed ? Patient: Néstor Chamorro ?MR#: [id number] ?? [id number] ? : 1960 ?Acct:[id number] ? Age/Sex: 63 / M ?ADM Date: 08/13/24 ? Loc: HO.HHCX ? Attending Dr: Catarina Samayoa MD ? Ordering Physician: Catarina Samayoa MD ?? Date of Service: 08/13/24 ?? Procedure(s): XR foot LT min 3V ?? Accession Number(s): [id number] ? cc: Catarina Samayoa MD; Kaden,[facility]it[facility] [employer] ? EXAMINATION: ?? XR FOOT LEFT ? [...] DD/ 1146 ? TD/TT: 08/13/24 1148 ? Psychologist Clinical: SR ? Procedure Note Yoelaine, Image - 10/02/[address] [address] XRay Report Signed Patient: Néstor Chamorro LMR#: [id number] : 1960cct:[id number] Age/Sex: 63 / MADM Date: 08/13/24 Loc: HO.HHCX Attending Dr: Catarina Samayoa MD Ordering Physician: Catarina Samayoa MD Date of Service: 08/13/24 Procedure(s): XR foot LT min 3V Accession Number(s): [id number] cc: Catarina Samyaoa MD; [facility] EXAMINATION: XR FOOT LEFT CLINICAL INFORMATION: Pain. [...] 10/02/24 0916 DD/ 1146 TD/TT: 08/13/24 1148 Psychologist Clinical: Catarina Samayoa MD IMG XR PROCEDURES Final Re sult * Referral to Optometry (07/08/2024) [facility] OUTPATIENT REFERRAL ORDERABLE S Final Result * Albumin, Random Urine W/Creatinine (04/17/2023 9:12 AM EDT) Creatinine, Urine 143.66 mg/dL [facility] Microalbumin Urine 14.0 mg/L [facility] Microalbum Creatinine Ratio Ur 9.7 ug/mg cr [facility] Comment:Albumin/Creatinine R atio Reference Ranges: Normal: < 30 ug/mg creatinine Microalbuminuria: 30 - 300 ug/mg creatinineClinical Albuminuria: > 300 ug/mg creatinine 04/17/2023 9:12 AM EDT 04/17/2023 11:00 AM EDT [facility] LAB URINE ORDERABLES Final Re sult [facility] [address] [place] [phone] * (ABNORMAL) Direct LDL (02/21/2023 10:14 AM EDT) LDL Direct 111(H) <100 mg/dL [facility] Comment:Greatly elevated Tri glycerides values (>1200 mg/dL)interfere with the dLDL assay. As no Triglyceridestesting was ordered, interpret results with caution.Desirable range <100 mg/dL for primary prevention;<70 mg/dL for patients with CHD or diabetic patientswith > or = 2 CHD risk factors.THIS TEST WAS PERFORMED AT:[employer] [place] [phone] OCONNOR MD 02/21/2023 10:1 4 AM EDT 02/21/2023 10:14 AM EDT [facility] External Provider LAB BLO OD ORDERABLES Final Result [facility] [address] [place] [address] [phone] * HEPATITIS C AB W/REFL TO HCV RNA, QN, PCR (05/24/2022 11:27 AM EDT) HEPATITIS C ANTIBODY NON-REACT [facility] NON-REACT [facility] INDEX 0.06 <1.00 [facility] Comment: ?? HCV antibody was non-reactive. There is no laboratory ?? evidence of HCV infection. ?? In most cases, no further action is required. However, if recent HCV exposure is suspected, a test for HCV RNA (test code 33513) is suggested. ?? For additional information please refer to http://education.Spiffy Society/faq/XTD91b8 (This link is being provided for informational/ educational purposes only.) ?? 05/24/2022 11:2 7 AM EDT [facility] HISTORICAL/NON ORDERABLE LABS Final Result [facility] [address] * HIV 1/2 ANTIGEN/ANTIBODY,FOURTH GENERATION W/RFL (05/24/2022 11:27 AM EDT) HIV-1/2 ANTIGEN AND ANTIBODIES, 4TH GENERATION W/ REFLEX NON-REACT ALICIA NON-REACT ALICIA [facility] Comment: HIV-1 antigen and HIV-1/HIV-2 antibodies were not detected. There is no laboratory evidence of HIV infection. ?? PLEASE NOTE: This information has been disclosed to you from records whose confidentiality may be protected by state law. ??If your state requires such protection, then the state law prohibits you from making any further disclosure of the information without the specific written consent of the person to whom it pertains, or as otherwise permitted by law. A general authorization for the release of medical or other information is NOT sufficient for this purpose. ? For additional information please refer to http://OnKure.Spiffy Society/faq/SVY205 (This link is being provided for informational/ educational purposes only.) ? The performance of this assay has not been clinically validated in patients less than 2 years old. ?? 05/24/2022 11:2 7 AM EDT [facility] LAB BLOOD ORDERABLES Final Re sult [facility] [address] * Colonoscopy (12/28/2013) Pathologist [facility] Colonoscopy performed Historical Provider HEALTH MAINTENANCE Final Result from Last 3 Months or Most Recently Relevant to Health Maintenance Insurance MEDICARE [facility] STANDARD DENTAL-[facility] [id number] Care Teams Aged Or Disabled Care Worker Relationship Specialty Start Date End Date Maritza Alfonso FNP [address] [place] [phone] PCP - General Family Medicine 05/24/22
[2024-10-08 09:56] LABS: MANUAL DIFF FLAG NO
[2024-10-08 10:08] LABS: Basophils Percent Auto 0.3 % (0-2); Eosinophils Absolute Auto 0.1 X10*3/uL (0.0-0.4); Eosinophils Percent Auto 2.2 % (0-4); Hematocrit 40.7 % (42.0-52.0); Hemoglobin 13.1 g/dl (14.0-18.0); Imm Gran Abs Auto 0.01 X10*3/uL (0.00-0.03); Imm Gran Pct Auto 0.3 % (0.0-0.4); Lymphocytes Absolute Auto 0.7 X10*3/uL (1.2-4.9); Lymphocytes Percent Auto 19.9 % (20-40); Mean Corpuscular HGB Conc 32.2 g/dl (31.0-36.0); Mean Corpuscular Hemoglobin 27.8 pg (27.0-33.0); Mean Corpuscular Volume 86.4 fL (80.0-98.0); Mean Platelet Volume 9.1 fL (9.4-12.4); Monocytes Absolute Auto 0.4 X10*3/uL (0.1-1.2); Monocytes Percent Auto 11.6 % (2-11); Neutrophils Absolute Auto 2.4 x10*3/uL (2.0-8.3); Neutrophils Percent Auto 65.7 % (45-73); Platelet Count 210 X10*3/uL (160-400); Red Blood Count 4.71 X10*6/uL (4.60-5.80); Red Cell Distribution Width 12.4 % (11.0-16.0); White Blood Count 3.6 X10*3/uL (4.8-10.8)
[2024-10-08 10:46] LABS: Erythrocyte Sedimentation Rate 38 MM/HR (0-15)
[2024-10-08 10:51] LABS: Alanine Aminotransferase 20 U/L (0-40); Albumin Level 4.5 g/dL (3.5-5.0); Alkaline Phosphatase 72 U/L (39-117); Anion Gap 13 (12-20); Aspartate Amino Transferase 25 U/L (5-37); Bilirubin Total 0.5 mg/dL (0.0-1.0); Blood Urea Nitrogen 11 mg/dL (9-16); C Reactive Protein 2.03 mg/dL (< or = 0.50); Calcium 10.1 mg/dL (8.4-10.2); Carbon Dioxide 26 mmol/L (22-29); Chloride 101 mmol/L (96-108); Cholesterol 153 mg/dL (<200); Estimated Glomerular Filt Rate > 60; Glucose Random 167 mg/dL (60-115); HDL Cholesterol 52 mg/dL (>40); LDL Cholesterol Calculated 91 mg/dL (<100); Potassium 4.2 mmol/L (3.3-5.1); Sodium 136 mmol/L (135-145); Total Protein 8.8 g/dL (6.5-8.0); Triglycerides 51 mg/dL (<150)
[2024-10-08 11:44] LABS: Creatinine Urine 98.17 mg/dL; Microalbum/Creatinine Ratio Ur 20.3 ug/mg cr (<30)
== END 2024-10-08 09:46 | disposition home or self-care (01) ==
LOC: HO.LAB 09:45
PROVIDERS: PCP Registered Nurse; Visit Provider Registered Nurse
DX: E11.65 Type 2 diabetes mellitus with hyperglycemia (principal); E11.621 Type 2 diabetes mellitus with foot ulcer; L97.521 Non-pressure chronic ulcer of other part of left foot limited to breakdown of skin
CPT/HCPCS: 36415; 80053; 80061; 82043; 82570; 85025; 85652; 86140

== ENCOUNTER → 2024-10-14 14:44 | Outpatient (BNV) | payer MEDICARE, MEDICAID, SELFPAY | PROVIDERS: PCP Registered Nurse; Visit Provider Radiology Diagnostic Radiology | DX: M86.8X7 Other osteomyelitis, ankle and foot (principal); M00.872 Arthritis due to other bacteria, left ankle and foot; L97.429 Non-pressure chronic ulcer of left heel and midfoot with unspecified severity | CPT/HCPCS: 73720 ==

== ENCOUNTER 2024-10-14 14:45 | Outpatient (REF) | payer MEDICARE, MEDICAID, SELFPAY ==
--- NOTE | ~2024-10-14 | MR_ITS ---
EXAMINATION: MR FOOT WITHOUT AND WITH CONTRAST, LEFT CLINICAL INFORMATION: Nonhealing wound first digit left foot, rule out osteomyelitis. COMPARISON: No prior MRI. Correlation made with films left foot 08/13/2024. TECHNIQUE: MRI of the left forefoot was performed before and after the intravenous administration of 8 mL Gadavist on a high-field 1.5 Susan Siemens scanner. FINDINGS: There is a 6 mm soft tissue ulceration in the soft tissues immediately medial to the medial aspect of the first metatarsal head (series 10, image 22). There is T2 hyperintense fluid and enhancement extending through an inferior linear tract, tracking into the region of the first MTP joint (series 10, image 22). This tracks to a second 4 mm soft tissue ulceration in the plantar surface, just below the medial eminence of the first metatarsal head (series 10, image 25). Findings are consistent with 2 cutaneous ulcerations with sinus tract. There is a joint effusion in the first MTP joint, with peripheral enhancing synovium suggesting changes of septic arthritis. There is a focus of T1 hypointense, T2 hyperintense, and enhancing bone marrow signal involving the plantar aspect of the medial eminence of the first metatarsal head, measuring 10 x 6 x 7 mm (series 3, image 22; series 5, image 24; series 11, image 23-24). Findings are consistent with a small focus of osteomyelitis. There is mild edema with subtle T1 enhancement in the periarticular medial aspect of the first digit, proximal phalanx, likely representing early osteomyelitis No additional abnormal bone marrow signal or enhancement present. There is fluid surrounding the mid and distal flexor hallucis longus tendon, spanning from the proximal metatarsal region to the most distal aspect of the tendon, with associated 18 mm peripheral region of enhancement, consistent with septic tenosynovitis (series 11, image 20). MR/MR foot LT wo/w con IMPRESSION: 1. Small focus of osteomyelitis involving the plantar aspect of the medial eminence of the first metatarsal head, measuring approximately 10 x 6 x 7 mm. 2. Within the medial corner of the periarticular proximal phalanx of the first digit, there is a second focus of suspected early osteomyelitis. 3. There is septic arthropathy of the first MTP joint. 4. There are 2 cutaneous ulcerations of abutting the first metatarsal head, one plantar and one medial, likely connected by a sinus tract. 5. There is a peripherally enhancing tenosynovitis of the flexor hallucis longus tendon. This most likely also represents septic etiology. Electronically signed by: Khai Moran MD 10/14/2024 04:32 PM [facility]
[2024-10-14] MEDS: gadobutroL 10 ML VIAL IVPUSH (15:46)
--- OUTSIDE RECORDS SUMMARY | 2024-10-14 16:01 | XMS_ITS | Encounter Summary ---
Author Organization [facility] Address [address] [place] [address] Phone Care Team Providers Care News Reel Cameraman Name Role Phone [facility] Primary Care Provider [phone] Encounter Details Date Type Department Care Team (Late Contact Info) Description 10/25/2023 Documentation Only [facility] [address] [place] [address] Diane Morrison [address] [place] [address] Social History Tobacco Use Types [...] [facility] [address] [place] [address] Mick Badillo MD [address] [place] [address] [place] [address] documented as of this encounter Visit Diagnoses Not on filedocumented in this encounter Care Teams News Reel Cameraman Relationship Specialty Start Date End Date [facility] [address] [place], [place] [phone] PCP - General 06/26/22 documented as of this encounter
--- OUTSIDE RECORDS SUMMARY | 2024-10-14 16:01 | XMS_ITS | Encounter Summary ---
Author Organization [facility] Address [address] [place] [address] Phone Care Team Providers Care Operator Control Room Name Role Phone [facility] Primary Care Provider [phone] Encounter Details Date Type Department Care Team (Late Contact Info) Description 09/02/2023 Orders Only [facility] [address] [place] [address] Hank Cho PA Chronic kidney [...] [facility] [address] [place] [place] [address] Mick Badillo MD [address] [place] [address] [place] [address] documented as of this encounter Visit Diagnoses Diagnosis Chronic kidney disease, stage 2 (mild) Essential (primary) hypertension Type 2 diabetes mellitus, not otherwise specified (HCC) documented in this encounter Care Teams Operator Control Room Relationship Specialty Start Date End Date [facility] [address] [place] [phone] PCP - General 06/26/22 documented as of this encounter
--- OUTSIDE RECORDS SUMMARY | 2024-10-14 16:01 | XMS_ITS | Encounter Summary ---
Author Organization [facility] Address [address] [place] [address] Phone Care Team Providers Care Tool/Die Maker Name Role Phone [facility] Primary Care Provider [phone] Encounter Details Date Type Department Care Team (Late Contact Info) Description 06/29/2024 Orders Only [facility] [address] [place] [address] Hank Cho PA Chronic kidney [...] Visit [facility] [address] [place] [address] Mick Badillo MD [address] [place] [address] [place] [address] documented as of this encounter Visit Diagnoses Diagnosis Chronic kidney disease, stage 2 (mild) Type 2 diabetes mellitus, not otherwise specified (HCC) Essential (primary) hypertension Microalbuminuria documented in this encounter Care Teams Tool/Die Maker Relationship Specialty Start Date End Date [facility] [address] [place] [phone] PCP - General 06/26/22 documented as of this encounter
--- OUTSIDE RECORDS SUMMARY | 2024-10-14 16:01 | XMS_ITS | Encounter Summary ---
Author Organization [facility] Address [address] [place] [address] Phone Care Team Providers Care Wood Heel Back Liner Name Role Phone [facility] Primary Care Provider [phone] Encounter Details Date Type Department Care Team (Late Contact Info) Description 07/07/2024 Documentation Only [facility] [address] [place] [address] Diane Morrison [address] [place] [address] Social History Tobacco Use Types [...] [facility] [address] [place] [address] Mick Badillo MD [address] [place] [address] [place] [address] documented as of this encounter Visit Diagnoses Not on filedocumented in this encounter Care Teams Wood Heel Back Liner Relationship Specialty Start Date End Date [facility] [address] [place], [place] [id number] PCP - General 06/26/22 documented as of this encounter
--- OUTSIDE RECORDS SUMMARY | 2024-10-14 16:01 | XMS_ITS | Encounter Summary ---
Author Organization [facility] Address [address] [place] [address] Phone Care Team Providers Care Rental Manager Name Role Phone Kaden Maritza Primary Care Provider [phone] Encounter Details Date Type Department Care Team (Late Contact Info) Description 02/26/2023 Documentation Only [facility] [address] [place] [phone] Hank Cho PA Social History Tobacco Use [...] Visit [facility] [address] [place] [address] Mick Badillo MD [address] [place] [address] [place] [phone] documented as of this encounter Visit Diagnoses Not on filedocumented in this encounter Care Teams Rental Manager Relationship Specialty Start Date End Date Maritza Alfonso [address] [place] [address] PCP - General 06/26/22 documented as of this encounter
--- OUTSIDE RECORDS SUMMARY | 2024-10-14 16:02 | XMS_ITS | Encounter Summary ---
Author Organization [employer] Address [address] [facility] 7[address] [place] [address] Care Team Providers Care Human Development Professor Name Role Phone [facility] Primary Care Provider [phone] Reason for Visit * Reason Comments Pre-visit Planning SDOH screening negat araceli and tobacco screening negative Encounter Details Date Type Department Care Team ([facility] st Contact Info) Description 10/12/2024 Patient Outreach [facility] MEDICINE [address] [place] [address] [facility] [address] [place] [address] Pre-visit Planning (SDOH screening negative and tobacco screening negative) Social History Tobacco Use Types Packs/Day Years [...] the past 12 months, has t he Football Meister, gas, oil or water Front [employer]k HQ threatened to shut off services in your home? No 06/17/2023 Depression Answer Date Recorded Patient Health Questionnaire-2 Score 0 01/15/2024 Internet Access Answer Date Recorded Internet Access Q1 Yes 10/12/2024 Internet Access Q2 Not on file 10/12/2024 Sex and Gender Information Value Date Recorded Sex Assigned at Male 07/02/2022 10:21 AM EDT Legal Sex Male 10:21 AM EDT Gender Identity Male 07/02/2022 10:21 AM EDT Sexual Orientation Choose not to disclose 2021 10:21 AM EDT documented as of this encounter Progress Notes * Debora Barnett - 10/12/2024 9:54 AM EST PITER Cazares placed successful outbound call to patient for pre-visit planning. Patient name and confirmed. Patient confirms appt date and time, and has transportation. Biggest concern for appointment at this time is none Patient advised to bring to appointment a photo id and insurance card. Appropriate screenings completed in anticipation of appointment. documented in this encounter Plan of Treatment Upcoming Encounters Date Type Department Care Team (Late st Contact Info) Description 10/26/2024 9:45 AM EST Office Visit [facility] MEDICINE [address] [place] [address] [facility] [address] [place] [address] documented as of this encounter Visit Diagnoses Not on filedocumented in this encounter Additional Health Concerns Assessment Noted Time PHQ-9 Depression Total Score: 0 01/15/20 24 9:49 AM EDT documented as of this encounter Care Teams Human Development Professor Relationship Specialty Start Date End Date Maryneal IVONNE Salas [address] [place] [address] PCP - General Family Medicine 05/24/22 documented as of this encounter
--- OUTSIDE RECORDS SUMMARY | 2024-10-14 16:02 | XMS_ITS | Encounter Summary ---
Author Organization [employer] Address [address] [place] [address] Care Team Providers Care Payroll Lead Name Role Phone [facility] Primary Care Provider [phone] Encounter Details Date Type Department Care Team (Late st Contact Info) Description 07/18/[address] [facility] MEDICINE [address] [place], [place] [phone] Mireya Khalil Social History Tobacco Use Types [...] Description 10/26/2024 9:45 AM EST Office Visit [facility] MEDICINE [address] [place] [address] Maritza Alfonso FNP [address] [place] [address] documented as of this encounter Visit Diagnoses Not on filedocumented in this encounter Additional Health Concerns Assessment Noted Time PHQ-9 Depression Total Score: 4 04/03/20 23 10:08 AM EDT documented as of this encounter Care Teams Payroll Lead Relationship Specialty Start Date End Date Maritza Alfonso FNP [address] [place] [address] PCP - General Family Medicine 05/24/22 documented as of this encounter
--- OUTSIDE RECORDS SUMMARY | 2024-10-14 16:02 | XMS_ITS | Encounter Summary ---
Author Organization [facility] Address [address] [place] [address] Phone Care Team Providers Care Restaurant Crew Person Name Role Phone Kaden Maritza Primary Care Provider [phone] Encounter Details Date Type Department Care Team (Late Contact Info) Description 05/31/2022 Documentation Only [facility] [address] [place] [phone] Hank Cho PA Social History Tobacco Use [...] Visit [facility] [address] [place] [address] Mick Badillo MD [address] [place] [address] [place] [phone] documented as of this encounter Visit Diagnoses Not on filedocumented in this encounter Care Teams Restaurant Crew Person Relationship Specialty Start Date End Date Maritza Alfonso [address] [place] [address] PCP - General 06/26/22 documented as of this encounter
--- OUTSIDE RECORDS SUMMARY | 2024-10-14 16:02 | XMS_ITS | Encounter Summary ---
Author Organization [employer] Address [address] [address] 7[address] [place] [address] Care Team Providers Care Online Content Editor Name Role Phone [facility] Primary Care Provider [phone] Reason for Visit * Reason Onset Date Comments Referral 07/03/2024 Encounter Details Date Type Department Care Team ([facility] st Contact Info) Description 07/03/2024 Telephone [facility] MEDICINE [address] [place], [place] [phone] [facility] [address] [place] [address] Referral Social History Tobacco Use Types Packs/Day [...] Provider name or facility name: [facility] Escort needed: Y/N: No Do you have a wheelchair: Y/N: No If yes- Manual or electric: Visits: (amount of visits) ( x monthly, weekly, daily) documented in this encounter Plan of Treatment Upcoming Encounters Date Type Department Care Team (Late st Contact Info) Description 10/26/2024 9:45 AM EST Office Visit [facility] MEDICINE [address] [place] [address] Maritza Alfonso FNP [address] [place] [address] documented as of this encounter Visit Diagnoses Not on filedocumented in this encounter Additional Health Concerns Assessment Noted Time PHQ-9 Depression Total Score: 0 01/15/20 9:49 AM EDT documented as of this encounter Care Teams Online Content Editor Relationship Specialty Start Date End Date Maritza Alfonso FNP [address] [place] [address] PCP - General Family Medicine 05/24/22 documented as of this encounter
--- OUTSIDE RECORDS SUMMARY | 2024-10-14 16:02 | XMS_ITS | Encounter Summary ---
Author Organization [facility] Address [address] [place] [address] Phone Care Team Providers Care Hand Binder Cutter Name Role Phone Kaden Maritza Primary Care Provider [phone] Encounter Details Date Type Department Care Team (Late Contact Info) Description 05/28/2022 Documentation Only [facility] [address] [place] [phone] Hank Cho PA Social History Tobacco Use [...] [facility] [address] [place] [address] Mick Badillo MD [address] [place] [address] [place] [phone] documented as of this encounter Visit Diagnoses Not on filedocumented in this encounter Care Teams Hand Binder Cutter Relationship Specialty Start Date End Date Maritza Alfonso [address] [place] [address] PCP - General 06/26/22 documented as of this encounter
--- OUTSIDE RECORDS SUMMARY | 2024-10-14 16:02 | XMS_ITS | Encounter Summary ---
Author Organization [employer] Address [address] [facility] [address] [address] 7[address] [place] [address] Care Team Providers Care Sports Writer Name Role Phone [facility] Primary Care Provider [phone] Encounter Details Date Type Department Care Team [...] 9:45 AM EST Office Visit [facility] MEDICINE [address] [place] [address] Maritza Alfonso FNP [address] [place] [address] documented as of this encounter Visit Diagnoses Not on filedocumented in this encounter Additional Health Concerns Assessment Noted Time PHQ-9 Depression Total Score: 0 01/15/20 24 9:49 AM EDT documented as of this encounter Care Teams Sports Writer Relationship Specialty Start Date End Date Maritza Alfonso FNP [address] [place] [address] PCP - General Family Medicine 05/24/22 documented as of this encounter
--- OUTSIDE RECORDS SUMMARY | 2024-10-14 16:02 | XMS_ITS | Encounter Summary ---
Author Organization [facility] Address [address] [place] [address] Phone Care Team Providers Care Automobile Carpets Molder Name Role Phone Kaden Maritza Primary Care Provider [phone] Encounter Details Date Type Department Care Team (Late Contact Info) Description 06/22/2022 Documentation Only [facility] [address] [place] [address] Hank Cho PA Social History Tobacco Use [...] Visit [facility] [address] [place] [address] Mick Badillo MD [address] [place] [address] [place] [phone] documented as of this encounter Visit Diagnoses Not on filedocumented in this encounter Care Teams Automobile Carpets Molder Relationship Specialty Start Date End Date Maritza Alfonso [address] [place] [address] PCP - General 06/26/22 documented as of this encounter
--- OUTSIDE RECORDS SUMMARY | 2024-10-14 16:02 | XMS_ITS | Encounter Summary ---
Author Organization [facility] Address [address] [place] [address] Phone Care Team Providers Care Technical Maintenance Specialist Name Role Phone Kaden Maritza Primary Care Provider [phone] Encounter Details Date Type Department Care Team (Late Contact Info) Description 02/22/2023 Documentation Only [facility] [address] [place] [address] Hank Cho PA Social History Tobacco Use [...] Visit [facility] [address] [place] [address] Mick Badillo MD [address] [place] [address] [place] [phone] documented as of this encounter Visit Diagnoses Not on filedocumented in this encounter Care Teams Technical Maintenance Specialist Relationship Specialty Start Date End Date Maritza Alfonso [address] [place] [address] PCP - General 06/26/22 documented as of this encounter
--- OUTSIDE RECORDS SUMMARY | 2024-10-14 16:02 | XMS_ITS | Encounter Summary ---
Author Organization [employer] Address [address] [facility] 7t [place] [address] Care Team Providers Care Topper Press Operator Automatic Name Role Phone Maritza Alfonso [facility] Primary Care Provider [phone] Reason for Referral * Consultation (Routine) - Authorized Specialty Diagnoses / Procedures Referred By Guanakito caro Referred To Contact Wound Care Diagnoses Wound of left foot Maritza Alfonso [facility] [address] [place] [address] Phone: tel: fax: [facility] [address] [place] [address] Phone: tel: fax: Referral ID Status Reason Start Date Expiration Date Visits Requested Visits Authorized [id number] Authorized Specialty Services Required 10/07/2024 10/07/2025 1 1 * Imaging (STAT) - Canceled Specialty Diagnoses / Procedures Referred By Guanakito caro Referred To Contact Radiology Diagnoses Wound of left foot Procedures Mr Foot w/o Contrast Left Maritza Alfonso [facility] [address] [place] [address] Phone: tel: fax: [facility] [address] [place], [place] Phone: tel: fax: Referral ID Status Reason Start Date Expiration Date V isits Requested Visits Authorized [id number] Canceled 10/07/2024 10/07/2025 1 1 Reason for Visit * Reason Comments follow up foot ulcer Encounter Details Date Type Department Care Team (Late st Contact Info) Description 10/07/2024 11:00 AM EST Office Visit [facility] [address] [place] [address] Maritza Alfonso FNP [address] [place] [address] Type 2 diabetes mellitus with hyperglycemia, without long-term current use of insulin ([facility]) (Primary Dx); Wound of left foot Social [...] documented in this encounter Progress Notes * [facility], [facility] - 10/07/2024 11:00 AM EST SUBJECTIVE: Néstor [...] this time. He was previously followed by [facility] wound care and podiatry but was lost to follow up since -04/2024. At walk in [place] He was prescribed 2 weeks of Augmentin and referred back to podiatry. X-ray at this time with concern for possible occult osteomyelitis. Today patient denies fever or chills discharge or increased swelling he has an appointment with podiatry scheduled for October. 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 Lives alone Children: 2 Activities: Enjoys walking, [...] hyperglycemia, without long-term current use of insulin ([facility]) (Primary) Lab Results Component Value Date HGBA1C [...] kit 0 D3 Super Strength 50 MCG (1999 [place]) capsule TAKE 1 CAPSULE BY MOUTH [...] facility-administered medications on file prior to visit. Czech Translation: Provided by [facility] staff member KATTY Sahu documented in this encounter Plan of Treatment Upcoming Encounters Date Type Department Care Team (Late st Contact Info) Description 10/26/2024 9:45 AM EST Office Visit [facility] [address] [place] [address] Maritza Alfonso FNP [address] [place] [address] Scheduled Orders Name Type Priority Associated Diagnoses Orde r Schedule Mr Foot w/o Contrast Left Imaging STAT Wound of left foot Expected: 10/07/2024, Expires: 10/07/2025 Scheduled Referrals Name Type Priority Associated Diagnoses Orde r Schedule Referral to Wound Clinic Outpatient Referral Routine Wound of left foot Expected: 10/07/2024 (Approximate), Expires: 10/07/2025 documented as of this encounter Procedures Procedure Name Priority Date/Time Associated Diagnosis Comments ALBUMIN, RANDOM URINE W/CREATININE Routine 10/08/2024 9:55 AM EST Type 2 diabetes mellitus with hyperglycemia, without long-term current use of insulin ([facility]) CBC WITH AUTO DIFFERENTIAL Routine 10/08/2024 9:55 AM EST Wound of left foot SED RATE BY MODIFIED WESTERGREN Routine 10/08/2024 9:55 AM EST Wound of left foot C-REACTIVE PROTEIN Routine 10/08/2024 9: 55 AM EST Wound of left foot LIPID PANEL, STANDARD Routine 10/08/2024 9:55 AM EST Type 2 diabetes mellitus with hyperglycemia, without long-term current use of insulin ([facility]) COMPREHENSIVE METABOLIC PANEL Routine 10/08/2024 9:55 AM EST Type 2 diabetes mellitus with hyperglycemia, without long-term current use of insulin ([facility]) POCT GLYCATED HEMOGLOBIN, TOTAL Routine 10/07/2024 11:04 AM EST Type 2 diabetes mellitus with hyperglycemia, without long-term current use of insulin ([facility]) POCT GLUCOSE Routine 10/07/2024 11:04 AM EST Type 2 diabetes mellitus with hyperglycemia, without long-term current use of insulin ([facility]) documented in this encounter Results * (ABNORMAL) C-reactive Protein (10/08/2024 9:55 AM EST) C Reactive Protein 2.03(H) < or = 0.50 mg/dL [facility] Blood Venous blood specimen / Unknown 10/08/2024 9:55 AM EST 10/08/2024 9:55 AM EST [facility] LAB BLOOD ORDERABLES Final Re sult [facility] [address] [place] [phone] * (ABNORMAL) Sed Rate by Modified Westergren (10/08/2024 9:55 AM EST) [facility] Erythrocyte Sedimentation Rate 38(H) 0 - 15 MM/HR [facility] Comment:Patients with polycy themia and many hemoglobin abnormalitiesmay have depressed sed rates whereas patients with anemiamay have elevated sed rates. Blood Venous blood specimen / Unknown 10/08/2024 9:55 AM EST 10/08/2024 9:55 AM EST [facility] LAB BLOOD ORDERABLES Final Re sult [facility] [address] [place] [phone] * (ABNORMAL) CBC auto differential (10/08/2024 9:55 AM EST) [facility] White Blood Count 3.6(L) 4.8 - 10.8 X10*3/uL [facility] Red Blood Count 4.71 4.60 - 5.80 X10*6/uL [facility] Hemoglobin 13.1(L) 14.0 - 18.0 g/dl [facility] Hematocrit 40.7(L) 42.0 - 52.0 % [facility] Mean Corpuscular Volume 86.4 80.0 - 98.0 fL [facility] Mean Corpuscular Hemoglobin 27.8 27.0 - 33.0 pg [facility] Mean Corpuscular HGB Conc 32.2 31.0 - 36.0 g/dl [facility] Red Cell Distribution Width 12.4 11.0 - 16.0 % [facility] Platelet Count 210 160 - 400 X10*3/uL [facility] Mean Platelet Volume 9.1(L) 9.4 - 12.4 fL [facility] Neutrophils Percent Auto 65.7 45 - 73 % [facility] Imm Gran Pct Auto 0.3 0.0 - 0.4 % [facility] Lymphocytes Percent Auto 19.9(L) 20 - 40 % [facility] Monocytes Percent Auto 11.6(H) 2 - 11 % [facility] Eosinophils Percent Auto 2.2 0 - 4 % [facility] Basophils Percent Auto 0.3 0 - 2 % [facility] NRBC Pct Auto 0.0 0.0 - 0.2 /100WBC [facility] Neutrophils Absolute Auto 2.4 2.0 - 8.3 x10*3/uL [facility] Imm Gran Abs Auto 0.01 0.00 - 0.03 X10*3/uL [facility] Lymphocytes Absolute Auto 0.7(L) 1.2 - 4.9 X10*3/uL [facility] Monocytes Absolute Auto 0.4 0.1 - 1.2 X10*3/uL [facility] Eosinophils Absolute Auto 0.1 0.0 - 0.4 X10*3/uL [facility] Basophils Absolute Auto 0.0 0.0 - 0.2 X10*3/uL [facility] NRBC Abs Auto 0.000 0.0 - 0.012 X10*3/uL [facility] Blood Venous blood specimen / Unknown 10/08/2024 9:55 AM EST 10/08/2024 9:55 AM EST [facility] ANALYTIC PROGRAMMER LAB BLOOD ORDERABLES Final Re sult [facility] [address] [place] [phone] * Lipid Panel, Standard (10/08/2024 9:55 AM EST) Triglycerides 51 <150 mg/dL [facility] Comment:Desirable Triglyceri de: less than 150 mg/dLBorderline High Triglyceride 150-199 mg/dLHigh Triglyceride: 200-499 mg/dLVery High Triglyceride: greater than or equal to 5OO mg/dL Cholesterol 153 <200 mg/dL [facility] Comment:Desirable Cholestero l: less than 200 mg/dLBorderline High Cholesterol: 200-239 mg/dLHigh Cholesterol: greater than 239 mg/dL LDL Cholesterol Calculated 91 <100 mg/dL [facility] Comment:Desirable LDL: less than 100 mg/dLNear Optimal/Above Optimal LDL: 110- 129 mg/dLBorderline High LDL: 130-159 mg/dLHigh LDL: 160-189 mg/dLVery High LDL: greater than or equal to 190 mg/dL HDL Cholesterol 52 >40 mg/dL [facility] Comment:Desirable HDL: great er than 40 mg/dL Note: This HDL assay may give artificially low results in patients with liver disease. Blood Venous blood specimen / Unknown 10/08/2024 9:55 AM EST 10/08/2024 9:55 AM EST [facility] ANALYTIC PROGRAMMER LAB BLOOD ORDERABLES Final Re sult [facility] [address] [place] [phone] * (ABNORMAL) Comprehensive Metabolic Panel (10/08/2024 9:55 AM EST) Sodium 136 135 - 145 mmol/L [facility] Potassium 4.2 3.3 - 5.1 mmol/L [facility] Chloride 101 96 - 108 mmol/L [facility] Carbon Dioxide 26 22 - 29 mmol/L [facility] Anion Gap 13 12 - 20 [facility] Urea Nitrogen (BUN) 11 9 - 16 mg/dL [facility] Creatinine, Serum 0.92 0.5 - 1.4 mg/dL [facility] Estimated Glomerular Filt Rate >60 [facility] Comment:Chronic Kidney Disea se: Estimated GFR < 60 mL/min/1.03d7Iwszcs Kidney Disease: Estimated GFR < 15 mL/min/1.73m2 Glucose 167(H) 60 - 115 mg/dL [facility] Calcium 10.1 8.4 - 10.2 mg/dL [facility] Bilirubin, Total 0.5 0.0 - 1.0 mg/dL [facility] Aspartate Amino Transferase 25 5 - 37 U/L [facility] Alanine Aminotransferase 20 0 - 40 U/L [facility] Total Protein 8.8(H) 6.5 - 8.0 g/dL [facility] Albumin Level 4.5 3.5 - 5.0 g/dL [facility] Alkaline Phosphatase 72 39 - 117 U/L [facility] Blood Venous blood specimen / Unknown 10/08/2024 9:55 AM EST 10/08/2024 9:55 AM EST [facility] LAB BLOOD ORDERABLES Final Re sult Performing Organization Address [facility] Co de Phone Number [facility] [address] [place] [phone] * Albumin, Random Urine W/Creatinine (10/08/2024 9:55 AM EST) Creatinine, Urine 98.17 mg/dL [facility] Microalbumin Urine 20.0 mg/L [facility] Microalbum Creatinine Ratio Ur 20.3 <30 ug/mg cr [facility] Comment:Albumin/Creatinine R atio Reference Ranges: Normal: < 30 ug/mg creatinine Microalbuminuria: 30 - 300 ug/mg creatinineClinical Albuminuria: > 300 ug/mg creatinine Urine 10/08/2024 9:55 AM EST 10/08/2024 10:32 AM EST [facility] LAB URINE ORDERABLES Final Re sult Performing Organization Address [facility] Co de Phone Number [facility] [address] [place] [phone] * (ABNORMAL) POCT HGB A1C (10/07/2024 11:04 AM EST) Hemoglobin A1C 8.5(A) 4.0 - 6.0 % Blood 10/07/2024 11:0 4 AM EST [facility] POINT OF CARE TEST ENTER/EDIT ORDERABLES Final Result * POCT Glucose (10/07/2024 11:04 AM EST) Glucose Blood, POC 200 60 - 200 mg/dL Blood Capillary blood specimen / Unknown 10/07/2024 11:04 AM EST Result [facility] POINT OF CARE TEST ENTER/EDIT ORDERABLES Final Result documented in this encounter Visit Diagnoses Diagnosis Type 2 diabetes mellitus with hyperglycemia, without long-term current use of insulin ([facility])- Primary Wound of left foot documented in this encounter Additional Health Concerns Assessment Noted Time PHQ-9 Depression Total Score: 0 01/15/20 24 9:49 AM EDT documented as of this encounter Care Teams Topper Press Operator Automatic Relationship Specialty Start Date End Date [facility] [address] [place] [phone] PCP - General Family Medicine 05/24/22 documented as of this encounter
--- OUTSIDE RECORDS SUMMARY | 2024-10-14 16:02 | XMS_ITS | Encounter Summary ---
Author Organization [employer] [facility] Address [address] [facility] 7t [place] [address] Care Team Providers Care Tour Coordinator Name Role Phone Maritza Alfonso Primary Care Provider [phone] Reason for Referral * Imaging (STAT) - Authorized Specialty Diagnoses / Procedures Referred By Contlesli t Referred To Contact Radiology Diagnoses Wound of left foot Procedures MR Foot w and w/o Contrast Left Maritza Alfonso FNP [address] [place] [address] Phone: tel: fax: [facility] [address] [place], [place] Phone: tel: fax: Referral ID Status Reason Start Date Expiration Date V isits Requested Visits Authorized [id number] Authorized 10/08/2024 10/08/2025 1 1 Encounter Details Date Type Department Care Team (Late st Contact Info) Description 10/08/2024 Orders Only [facility] [address] [place] [address] Maritza Alfonso FNP [address] [place], [place] [phone] Wound of left foot (Primary Dx) Social History Tobacco Use Types [...] 9:45 AM EST Office Visit [facility] [address] [place], [place] [phone] [facility] [address] [place] [address] Scheduled Orders Name Type Priority Associated Diagnoses Orde r Schedule MR Foot w and w/o Contrast Left Imaging STAT Wound of left foot Expected: 10/08/2024, Expires: 10/08/2025 documented as of this encounter Visit Diagnoses Diagnosis Wound of left foot- Primary documented in this encounter Additional Health Concerns Assessment Noted Time PHQ-9 Depression Total Score: 0 01/15/20 24 9:49 AM EDT documented as of this encounter Care Teams Tour Coordinator Relationship Specialty Start Date End Date Maritza Alfonso FNP [address] [place] [phone] PCP - General Family Medicine 05/24/22 documented as of this encounter
--- OUTSIDE RECORDS SUMMARY | 2024-10-14 16:02 | XMS_ITS | Encounter Summary ---
Author Organization [employer] Address [address] [facility] 7[address] [place] [address] Care Team Providers Care Criminal Justice Professor Name Role Phone [facility] Primary Care Provider Reason for Visit * Reason Comments Med Refill Encounter Details Date Type Department Care Team ([facility] st Contact Info) Description 09/28/2024 Refill [facility] [address] [place], [place] [phone] [facility] [address] [place], [place] [phone] Social History Tobacco Use Types Packs/Day Years [...] Description 10/26/2024 9:45 AM EST Office Visit [facility] [address] [place] [address] KadenMaritza moore FNP [address] [place] [address] documented as of this encounter Visit Diagnoses Not on filedocumented in this encounter Additional Health Concerns Assessment Noted Time PHQ-9 Depression Total Score: 0 01/15/20 9:49 AM EDT documented as of this encounter Care Teams Criminal Justice Professor Relationship Specialty Start Date End Date Maritza Alfonso FNP [address] [place] [address] PCP - General Family Medicine 05/24/22 documented as of this encounter
--- OUTSIDE RECORDS SUMMARY | 2024-10-14 16:02 | XMS_ITS | Clinical Summary ---
Author Organization [facility], Address [address] [place] [address] [place] [address] Phone Care Team Providers Care Seaweed Harvester Name Role Phone [facility] Primary Care Provider [phone] Allergies Active Allergy Reactions Criticality Noted Date [...] h diabetic chronic kidney disease 11/02/2019 05/18/2021 Immunizations Name Administration Dates Next Due Influenza [...] Visit [facility], [address] [place] [address] Mick Badillo MD [address] [facility] [place] [phone] Health Maintenance Due Date Last Done Comments [...] 06/18/2020, Additional history exists Diabetes: Hemoglobin A1C 08/19/20242 024, 10/16/2023, 12/31/2022, Additional history exists Hepatitis B Vaccine Aged Out No longe r eligible based on patient's age to complete this topic Procedures Procedure Name Priority Date/Time Associated Diagnosis Comments LAB RN PALLIATIVE Routine 01/29/2018 12:00 AM EDT from Last 3 Months or Most Recently Relevant to Health Maintenance Results * Lab Benefits Consulting Analyst (01/29/2018 12:00 AM EDT) Hemoglobin A1C 7.8 % [facility] 01/29/2018 us [facility] Conversion LAB [id number] LICITED RESULTS Final Result [facility] from Last 3 Months or Most Recently Relevant to Health Maintenance Insurance [place] Care Teams Seaweed Harvester Relationship Specialty Start Date End Date [facility] [address] [place] [address] PCP - General 06/26/22
--- OUTSIDE RECORDS SUMMARY | 2024-10-14 16:02 | XMS_ITS | Encounter Summary ---
Author Organization [facility] Address [address] [place] [address] Phone Care Team Providers Care Regional Sales Trainer Name Role Phone [facility] Primary Care Provider [phone] Encounter Details Date Type Department Care Team (Late Contact Info) Description 10/25/2023 Documentation Only [facility] [address] [place] [address] Diane Morrison [address] [place] [address] Social History Tobacco Use Types [...] Visit [facility] [address] [place] [address] Mick Badillo MD [address] [place] [address] [place] [address] documented as of this encounter Visit Diagnoses Not on filedocumented in this encounter Care Teams Regional Sales Trainer Relationship Specialty Start Date End Date [facility] [address] [place], [place] [phone] PCP - General 06/26/22 documented as of this encounter
--- OUTSIDE RECORDS SUMMARY | 2024-10-14 16:02 | XMS_ITS | Encounter Summary ---
Author Organization [facility] Address [address] [place] [address] Phone Care Team Providers Care Sap Solutions Architect Name Role Phone Kaden Maritza Primary Care Provider [phone] Encounter Details Date Type Department Care Team (Late Contact Info) Description 02/25/2023 Documentation Only [facility] [address] [place] [phone] Hank Cho PA Social History Tobacco Use [...] [facility] [address] [place] [address] Mick Badillo MD [address] [place] [address] [place] [phone] documented as of this encounter Visit Diagnoses Not on filedocumented in this encounter Care Teams Sap Solutions Architect Relationship Specialty Start Date End Date Maritza Alfonso [address] [place] [address] PCP - General 06/26/22 documented as of this encounter
--- OUTSIDE RECORDS SUMMARY | 2024-10-14 16:02 | XMS_ITS | Encounter Summary ---
Author Organization [facility] Address [address] [place] [address] Phone Care Team Providers Care Ice Maker Name Role Phone Kaden Maritza Primary Care Provider [phone] Encounter Details Date Type Department Care Team (Late Contact Info) Description 06/01/2022 Documentation Only [facility] [address] [place] [phone] Hank Cho PA Social History Tobacco Use [...] Visit [facility] [address] [place] [address] Mick Badillo MD [address] [place] [address] [place] [phone] documented as of this encounter Visit Diagnoses Not on filedocumented in this encounter Care Teams Ice Maker Relationship Specialty Start Date End Date Maritza Alfonso [address] [place] [address] PCP - General 06/26/22 documented as of this encounter
--- OUTSIDE RECORDS SUMMARY | 2024-10-14 16:02 | XMS_ITS | Encounter Summary ---
Author Organization [facility] Address [address] [place] [address] Phone Care Team Providers Care Ready To Wear Department Manager Name Role Phone [facility] Primary Care Provider Encounter Details Date Type Department Care Team (Late Contact Info) Description 05/31/2022 Documentation Only [facility] [address] [place] [address] Alexander Zhou MD [address] [place] [address] [place] [address] Social History Tobacco Use Types [...] Visit [facility] [address] [place] [address] Mick Badillo MD [address] [facility] [place] [address] documented as of this encounter Visit Diagnoses Not on filedocumented in this encounter Care Teams Ready To Wear Department Manager Relationship Specialty Start Date End Date [facility] [address] [place] [phone] PCP - General 06/26/22 documented as of this encounter
--- OUTSIDE RECORDS SUMMARY | 2024-10-14 16:02 | XMS_ITS | Encounter Summary ---
Author Organization [employer] Address [address] [facility] 7t [place] [address] Care Team Providers Care Jewelry Setter Name Role Phone [place] [facility] Primary Care Provider [phone] Reason for Referral * Consultation (Routine) - Closed Specialty Diagnoses / Procedures Referred By Contac t Referred To Contact Podiatry Diagnoses Localized swelling of left foot Charcot foot due to diabetes mellitus (CMS/HCC) Hx of diabetic foot ulcer Catarina Samayoa MD [address] [place] [phone] Phone: tel: fax: [facility] [address] Phone: tel: fax: Referral ID Status Reason Start Date Expiration Date V isits Requested Visits Authorized [id number] Closed Specialty Services Required 08/13/2024 08/13/2025 1 1 Reason for Visit * Reason Comments Foot Pain Encounter Details Date Type Department Care Team (Late st Contact Info) Description 08/13/2024 1:00 PM EST Office Visit [facility] [address] [place] [address] [phone] Catarina Samayoa MD [address] [place] [address] [phone] Localized swelling of left foot (Primary Dx); [...] localized left foot swelling and sent to [facility] ED for further evaluation. Left Foot XR [...] in his left foot. 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 Review of [...] Diagnoses Charcot foot due to diabetes mellitus ([facility]) Relevant Medications amoxicillin-clavulanate (Augmentin) 875-125 MG tablet [...] Description 10/26/2024 9:45 AM EST Office Visit [facility] [address] [place] [address] [facility] [address] [place] [address] Scheduled Referrals Name Type Priority Associated Diagnoses Orde r Schedule Referral to Podiatry Outpatient Referral Routine Localized swelling of left foot Charcot foot due to diabetes mellitus ([facility]) Hx of diabetic foot ulcer Expected: 08/13/2024 [...] AM EST Narrative 10/02/2024 9:19 AM EST ?[facility] ?[address] ?[place] [address] ?XRay Report ? Signed ? Patient: Octavio Néstor Hardin ?MR#: [id number] ?? [id number] ? : 1960 ?Acct:[id number] ? Age/Sex: 63 / M ?ADM Date: 08/13/24 ? Loc: HO.HHCX ? Attending Dr: Catarina Samayoa MD ? Ordering Physician: Catarina Samayoa MD ?? Date of Service: 08/13/24 ?? Procedure(s): XR foot LT min 3V ?? Accession Number(s): [id number] ? cc: Catarina Samayoa MD; [place] [facility] ? EXAMINATION: ?? XR FOOT LEFT [...] DD/ 1146 ? TD/TT: 08/13/24 1148 ? Flat Sorting Machine Clerk: SR ? Procedure Note Estephaniater, Image - 10/02/[address] [address] XRay Report Signed Patient: Néstor Chamorro LMR#: [id number] : 1Acct:[id number] Age/Sex: 63 / MADM Date: 08/13/24 [facility] Attending Dr: Catarina Samayoa MD Ordering Physician: Catarina Samyaoa MD Date of Service: 08/13/24 Procedure(s): XR foot LT min 3V Accession Number(s): [id number] cc: Catarina Samayoa MD; [facility] EXAMINATION: XR FOOT LEFT CLINICAL INFORMATION: Pain. [...] 10/02/24 0916 DD/ 1146 TD/TT: 08/13/24 1148 Flat Sorting Machine Clerk: Catarina Samayoa MD IMG XR PROCEDURES Final Re sult documented in this encounter Visit Diagnoses Diagnosis Localized swelling of left foot- Primary Charcot foot due to diabetes mellitus (CMS/HCC) Hx of diabetic foot ulcer documented in this encounter Additional Health Concerns Assessment Noted Time PHQ-9 Depression Total Score: 0 01/15/20 24 9:49 AM EDT documented as of this encounter Care Teams Jewelry Setter Relationship Specialty Start Date End Date Maritza Alfonso FNP [address] [place] [phone] PCP - General Family Medicine 05/24/22 documented as of this encounter
--- OUTSIDE RECORDS SUMMARY | 2024-10-14 16:02 | XMS_ITS | Encounter Summary ---
Author Organization [employer] Address [address] [facility] [address] 7t [place] [address] Care Team Providers Care Remote Sensing Engineer Name Role Phone [facility] Primary Care Provider [phone] Reason for Visit * Reason Onset Date Comments Results 10/02/2024 Encounter Details Date Type Department Care Team ([facility] st Contact Info) Description 10/02/2024 Telephone [facility] 230 [place], [place] [phone] Rosa Solano RN [address] [place] [address] Results Social History Tobacco Use Types Packs/Day [...] Description 10/26/2024 9:45 AM EST Office Visit [facility] [address] [place] [address] [place] Maritza [employer]BER [address] [place] [address] documented as of this encounter Visit Diagnoses Not on filedocumented in this encounter Additional Health Concerns Assessment Noted Time PHQ-9 Depression Total Score: 0 01/15/20 9:49 AM EDT documented as of this encounter Care Teams Remote Sensing Engineer Relationship Specialty Start Date End Date Kaden IVONNE Salas [address] [place] [address] PCP - General Family Medicine 05/24/22 documented as of this encounter
--- OUTSIDE RECORDS SUMMARY | 2024-10-14 16:02 | XMS_ITS | Clinical Summary ---
Author Organization [employer] Address [address] [facility] 7t [place] [address] Care Team Providers Care Grommet Worker Name Role Phone [facility] Primary Care Provider [phone] Allergies Active Allergy Reactions Criticality Noted Date [...] kidney disease, unspecified CKD stage, unspecified whether alf insulin use ([facility]) USE ONCE DAILY WITH INSULIN 100 each 3 08/16/20 22 Active Additional Information Patient not taking.Reported on 10/16/2023 Blood Glucose Monitoring Suppl (True Metrix Meter) w/Device kitIndications: Type 2 diabetes mellitus with hyperglycemia, with long-term current use of insulin ([facility]) 1 kit before breakfast, before lunch, before evening meal, and at bedtime. 1 kit 09/20/19 23 Active TRUEplus Lancets 33G miscIndications :Type 2 diabetes mellitus with hyperglycemia, with long-term current use of insulin ([facility]) TEST BLOOD SUGAR 4 TIMES A DAY 100 each 11 04/09/20 23 Active glucose blood (FREESTYLE LITE) test stripIndication s:Type 2 diabetes mellitus with hyperglycemia, with long-term current use of insulin ([facility]) TEST BLOOD SUGAR 4 TIMES A DAY 100 strip 04/09/20 23 Active dulaglutide (Trulicity) 1.5 MG/0.5ML solution pen-injectorInd ications:Type 2 diabetes mellitus with hyperglycemia, without long-term current use of insulin ([facility]) Inject 1.5 mg under the skin 1 (one) time per week. 4 each 01/15/20 24 Active metFORMIN XR (Glucophage-XR) 500 MG 24 hr tabletIndicatio ns:Type 2 diabetes mellitus with hypoglycemia without coma, without long-term current use of insulin ([facility]) Take 1 tablet (500 mg) by [...] hyperglycemia, without long-term current use of insulin ([facility]) Take 1 tablet (25 mg) by [...] coma, without long-term current use of insulin ([facility]) Take 1 tablet (10 mg) by [...] Declines PSA: 04/2023 Vision Exam: [place] [facility] [place] Immunizations:Declines PCV 20 04/2023 Assessment & [...] arteriosclerosis 08/13/2022 Overview (04/03/2023): ?? [place] [facility] [place] Morales ?? 01/2023 Negative Echo. Negative stress test Leukopenia 03/26/2022 Overview (04/03/2023): ?? Followed by [place]ology[place] [facility]. Last seen apporx 6 months ago. Reports [...] toe amputation Eye Exam: Referred back [place] [facility] [place] 04/2023 Statin: Yes ASA: Yes YASHIRA/ARB: [...] previously ordered labs. Will re order to [facility] [place] today Essential (primary) hypertension 08/12/2012 Overview [...] Encounters Date Type Department Care Team Description 10/12/2024 Patient Outreach [facility] [address] [place] [phone] Maritza Alfonso FNP Pre-visit Planning (SDOH screening negative and tobacco screening negative) 10/08/2024 Orders Only [facility] [address] [place] [phone] Maritza Alfonso FNP Wound of left foot (Primary Dx) 10/07/2024 11:00 AM EST Office Visit [facility] [address] [place] [address] Maritza Alfonso FNP Type 2 diabetes mellitus with hyperglycemia, without long-term current use of insulin ([facility]) (Primary Dx); Wound of left foot 10/07/2024 Telephone [facility] [address] [place] [phone] Maritza Alfonso FNP MRI FOOT ORDER 10/07/2024 Travel 10/02/2024 Telephone [facility] [address] [place] [phone] Rosa Solano, AGNIESZKA Results 09/28/2024 Refill [facility] [address] [facility] [place] [address] Maritza Alfonso IVONNE 08/13/2024 1:00 PM EST Office Visit [facility] [address] [place] [address] Catarina Samayoa MD Localized swelling of left foot (Primary Dx); Charcot foot due to diabetes mellitus (CMS/HCC); Hx of diabetic foot ulcer from Last [...] Description 10/26/2024 9:45 AM EST Office Visit [facility] 230 [place] [address] [place], [place], LINER MACHINE OPERATOR HELPER [address] [place] [address] Health Maintenance Due Date Last Done Comments [...] Colonoscopy 12/29/2023 12/28/2013 Colorectal Cancer Screening 12/29/2023 COVID-19 Vaccine ( season) 2024 02/13/2021, 01/16/2021 Diabetes: Hemoglobin A1C 01/04/2025 025, 05/20/2024, 01/15/2024, Additional history exists Alcohol/Substance Use Screening 01/14/2025 01/15/2024 Depression Screening 01/14/2025 01/15/2024, 01/15/20 Diabetes: Foot Exam 01/14/2025 01/15/2024, 01/15/2024, 01/15/2024, Additional history exists Eye Exam 07/08/2025 07/08/2024 Tobacco Screening 10/07/2025 10/07/2024 Diabetes: Urine Protein Screening 10/08/2025 10/08/2024, 04/17/2023, 11/21/2021, Additional history exists Lipid Panel 10/08/2025 10/08/2024, 02/01, 02/21/2023, Additional history exists SDOH Screening 10/12/2025 10/12/2024 DTaP/Tdap/Td Vaccines (3 - Td or Tdap) [...] Procedure Name Priority Date/Time Associated Diagnosis Comments C-REACTIVE PROTEIN Routine 10/08/2024 9: 55 AM EST Wound of left foot SED RATE BY MODIFIED WESTERGREN Routine 10/08/2024 9:55 AM EST Wound of left foot CBC WITH AUTO DIFFERENTIAL Routine 10/08/2024 9:55 AM EST Wound of left foot LIPID PANEL, STANDARD Routine 10/08/2024 9:55 AM EST Type 2 diabetes mellitus with hyperglycemia, without long-term current use of insulin (CMS/HCC) COMPREHENSIVE METABOLIC PANEL Routine 10/08/2024 9:55 AM EST Type 2 diabetes mellitus with hyperglycemia, without long-term current use of insulin (CMS/HCC) ALBUMIN, RANDOM URINE W/CREATININE Routine 10/08/2024 9:55 AM EST Type 2 diabetes mellitus with hyperglycemia, without long-term current use of insulin (CMS/HCC) POCT GLYCATED HEMOGLOBIN, TOTAL Routine 10/07/2024 11:04 AM EST Type 2 diabetes mellitus with hyperglycemia, without long-term current use of insulin (CMS/HCC) POCT GLUCOSE Routine 10/07/2024 11:04 AM EST Type 2 diabetes mellitus with hyperglycemia, without long-term current use of insulin (CMS/HCC) XR FOOT 3+ VIEWS LEFT Routine 08/13/2024 11:46 AM EST Localized swelling of left foot Charcot foot due to diabetes mellitus (CMS/HCC) Hx of diabetic foot ulcer AMB REFERRAL TO OPTOMETRY Routine 07/08/2024 Type 2 diabetes mellitus with hypoglycemia without coma, without long-term current use of insulin ([facility]/HCC) ZZZ HISTORICAL HEPATITIS C AB W/REFL TO HCV RNA, QN, PCR Routine 05/24/2022 11:27 AM EDT HIV 1/2 ANTIGEN/ANTIBODY, FOURTH GENERATION W/RFL Routine 05/24/2022 11:27 AM EDT HM COLONOSCOPY Routine 12/28/2013 from Last 3 Months or Most Recently Relevant to Health Maintenance Results * Albumin, Random Urine W/Creatinine (10/08/2024 9:55 AM EST) Creatinine, Urine 98.17 mg/dL [facility] Microalbumin Urine 20.0 mg/L [facility] Microalbum Creatinine Ratio Ur 20.3 <30 ug/mg cr [facility] Comment:Albumin/Creatinine R atio Reference Ranges: Normal: < 30 ug/mg creatinine Microalbuminuria: 30 - 300 ug/mg creatinineClinical Albuminuria: > 300 ug/mg creatinine Urine 10/08/2024 9:55 AM EST 10/08/2024 10:32 AM EST [facility] LINER MACHINE OPERATOR HELPER LAB URINE ORDERABLES Final Re sult [facility] [address] [place] [phone] * (ABNORMAL) CBC auto differential (10/08/2024 9:55 AM EST) White Blood Count 3.6(L) 4.8 - 10.8 X10*3/uL [facility] Red Blood Count 4.71 4.60 - 5.80 X10*6/uL [facility] Hemoglobin 13.1(L) 14.0 - 18.0 g/dl [facility] Hematocrit 40.7(L) 42.0 - 52.0 % [facility] Mean Corpuscular Volume 86.4 80.0 - 98.0 fL [facility] Mean Corpuscular Hemoglobin 27.8 27.0 - 33.0 pg [facility] Mean Corpuscular HGB Conc 32.2 31.0 - 36.0 g/dl [facility] Red Cell Distribution Width 12.4 11.0 - 16.0 % [facility] Platelet Count 210 160 - 400 X10*3/uL [facility] Mean Platelet Volume 9.1(L) 9.4 - 12.4 fL [facility] Neutrophils Percent Auto 65.7 45 - 73 % [facility] Imm Gran Pct Auto 0.3 0.0 - 0.4 % [facility] Lymphocytes Percent Auto 19.9(L) 20 - 40 % [facility] Monocytes Percent Auto 11.6(H) 2 - 11 % [facility] Eosinophils Percent Auto 2.2 0 - 4 % [facility] Basophils Percent Auto 0.3 0 - 2 % [facility] NRBC Pct Auto 0.0 0.0 - 0.2 /100WBC [facility] Neutrophils Absolute Auto 2.4 2.0 - 8.3 x10*3/uL [facility] Imm Gran Abs Auto 0.01 0.00 - 0.03 X10*3/uL [facility] Lymphocytes Absolute Auto 0.7(L) 1.2 - 4.9 X10*3/uL [facility] Monocytes Absolute Auto 0.4 0.1 - 1.2 X10*3/uL [facility] Eosinophils Absolute Auto 0.1 0.0 - 0.4 X10*3/uL [facility] Basophils Absolute Auto 0.0 0.0 - 0.2 X10*3/uL [facility] NRBC Abs Auto 0.000 0.0 - 0.012 X10*3/uL [facility] Blood Venous blood specimen / Unknown 10/08/2024 9:55 AM EST 10/08/2024 9:55 AM EST [facility] LAB BLOOD ORDERABLES Final Re sult Performing Organization Address [facility] Co de Phone Number [facility] [address] [place] [phone] * (ABNORMAL) Sed Rate by Modified Maycol (10/08/2024 9:55 AM EST) Erythrocyte Sedimentation Rate 38(H) 0 - 15 MM/HR [facility] Comment:Patients with polycy themia and many hemoglobin abnormalitiesmay have depressed sed rates whereas patients with anemiamay have elevated sed rates. Blood Venous blood specimen / Unknown 10/08/2024 9:55 AM EST 10/08/2024 9:55 AM EST [facility] LAB BLOOD ORDERABLES Final Re sult Performing Organization Address [facility] Co de Phone Number [facility] [address] [place] [phone] * (ABNORMAL) C-reactive Protein (10/08/2024 9:55 AM EST) C Reactive Protein 2.03(H) < or = 0.50 mg/dL [facility] Blood Venous blood specimen / Unknown 10/08/2024 9:55 AM EST 10/08/2024 9:55 AM EST [facility] LAB BLOOD ORDERABLES Final Re sult Performing Organization Address [facility] Co de Phone Number [facility] [address] [place] [address] [phone] * Lipid Panel, Standard (10/08/2024 9:55 AM EST) Triglycerides 51 <150 mg/dL [facility] Comment:Desirable Triglyceri de: less than 150 mg/dLBorderline High Triglyceride 150-199 mg/dLHigh Triglyceride: 200-499 mg/dLVery High Triglyceride: greater than or equal to 5OO mg/dL Cholesterol 153 <200 mg/dL [facility] Comment:Desirable Cholestero l: less than 200 mg/dLBorderline High Cholesterol: 200-239 mg/dLHigh Cholesterol: greater than 239 mg/dL LDL Cholesterol Calculated 91 <100 mg/dL [facility] Comment:Desirable LDL: less than 100 mg/dLNear Optimal/Above Optimal LDL: 110- 129 mg/dLBorderline High LDL: 130-159 mg/dLHigh LDL: 160-189 mg/dLVery High LDL: greater than or equal to 190 mg/dL HDL Cholesterol 52 >40 mg/dL [facility] Comment:Desirable HDL: great er than 40 mg/dL Note: This HDL assay may give artificially low results in patients with liver disease. Blood Venous blood specimen / Unknown 10/08/2024 9:55 AM EST 10/08/2024 9:55 AM EST [facility] LINER MACHINE OPERATOR HELPER LAB BLOOD ORDERABLES Final Re sult Performing Organization Address [facility] Co de Phone Number [facility] [address] [place] [address] [phone] * (ABNORMAL) Comprehensive Metabolic Panel (10/08/2024 9:55 AM EST) Sodium 136 135 - 145 mmol/L [facility] Potassium 4.2 3.3 - 5.1 mmol/L [facility] Chloride 101 96 - 108 mmol/L [facility] Carbon Dioxide 26 22 - 29 mmol/L [facility] Anion Gap 13 12 - 20 [facility] Urea Nitrogen (BUN) 11 9 - 16 mg/dL [facility] Creatinine, Serum 0.92 0.5 - 1.4 mg/dL [facility] Estimated Glomerular Filt Rate >60 [facility] Comment:Chronic Kidney Disea se: Estimated GFR < 60 mL/min/1.31m8Luzqau Kidney Disease: Estimated GFR < 15 mL/min/1.73m2 Glucose 167(H) 60 - 115 mg/dL [facility] Calcium 10.1 8.4 - 10.2 mg/dL [facility] Bilirubin, Total 0.5 0.0 - 1.0 mg/dL [facility] Aspartate Amino Transferase 25 5 - 37 U/L [facility] Alanine Aminotransferase 20 0 - 40 U/L [facility] Total Protein 8.8(H) 6.5 - 8.0 g/dL [facility] Albumin Level 4.5 3.5 - 5.0 g/dL [facility] Alkaline Phosphatase 72 39 - 117 U/L [facility] Blood Venous blood specimen / Unknown 10/08/2024 9:55 AM EST 10/08/2024 9:55 AM EST [facility] LAB BLOOD ORDERABLES Final Re sult [facility] [address] [place] [phone] * (ABNORMAL) POCT HGB A1C (10/07/2024 11:04 AM EST) Hemoglobin A1C 8.5(A) 4.0 - 6.0 % Blood 10/07/2024 11:0 4 AM EST [facility] POINT OF CARE TEST ENTER/EDIT ORDERABLES Final Result * POCT Glucose (10/07/2024 11:04 AM EST) Glucose Blood, POC 200 60 - 200 mg/dL Blood Capillary blood specimen / Unknown 10/07/2024 11:04 AM EST [facility] LINER MACHINE OPERATOR HELPER POINT OF CARE TEST ENTER/EDIT ORDERABLES Final Result * XR Foot 3+ Views Left (08/13/2024 11:46 AM EST) Anatomical Region Laterality Modality Lower Extremities, Foot Left Radiogra phic Imaging 08/13/2024 11:4 6 AM EST Narrative 10/02/2024 9:19 AM EST ?[facility] ?[address] ?[place] [address] ?XRay Report ? Signed ? Patient: Octavio Néstor Hardin ?MR#: [id number] ?? [id number] ? : 1960 ?Acct:[id number] ? Age/Sex: 63 / M ?ADM Date: 08/13/24 ? Loc: HO.HHCX ? Attending Dr: Catarina Samayoa MD ? Ordering Physician: Catarina Samayoa MD ?? Date of Service: 08/13/24 ?? Procedure(s): XR foot LT min 3V ?? Accession Number(s): [id number] ? cc: Catarina Samayoa MD; Maritza Alfonso [facility] ? EXAMINATION: ?? XR FOOT LEFT [...] ??Sam Gillette MD ??10/02/2024 09:16 AM EST ?? RP ? Dictated By: ?Sam Gillette MD ? Signed By: ?<Electronically signed by Sam Gillette MD in OV> ?10/02/24 0916 ? DD/ 1146 ? TD/TT: 08/13/24 1148 ? Newscast Director: ? Procedure Note Donten, Image - 10/02/2024 [facility] [address] [place] [address] XRay Report Signed Patient: Néstor Chamorro LMR#: [id number] : 1960cct:[id number] Age/Sex: 63 / MADM Date: 08/13/24 Loc: HO.HHCX Attending Dr: Catarina Samayoa MD Ordering Physician: Catarina Samayoa MD Date of Service: 08/13/24 Procedure(s): XR foot LT min 3V Accession Number(s): [id number] cc: Catarina Samayoa MD; [facility] EXAMINATION: XR FOOT LEFT CLINICAL INFORMATION: [...] 10/02/24 0916 DD/ 1146 TD/TT: 08/13/24 1148 Newscast Director: Catarina Samayoa MD IMG XR PROCEDURES Final Re sult * Referral to Optometry (07/08/2024) [facility] OUTPATIENT REFERRAL ORDERABLE S Final Result * HEPATITIS C AB W/REFL TO HCV RNA, QN, PCR (05/24/2022 11:27 AM EDT) HEPATITIS C ANTIBODY NON-REACT ALICIA NON-REACT ALICIA [facility] INDEX 0.06 <1.00 [facility] Comment: ?? HCV antibody was non-reactive. There is no laboratory ?? evidence of HCV infection. ?? In most cases, no further action is required. However, if recent HCV exposure is suspected, a test for HCV RNA (test code 08661) is suggested. ?? For additional information please refer to http://education.VisualXcript/faq/RXS72r1 (This link is being provided for informational/ educational purposes only.) ?? 05/24/2022 11:2 7 AM EDT [facility] HISTORICAL/NON ORDERABLE LABS Final Result [facility] [address] * HIV 1/2 ANTIGEN/ANTIBODY,FOURTH GENERATION W/RFL (05/24/2022 11:27 AM EDT) HIV-1/2 ANTIGEN AND ANTIBODIES, 4TH GENERATION W/ REFLEX NON-REACT ALICIA NON-REACT ALICIA [facility] Comment: HIV-1 antigen and HIV-1/HIV-2 [...] ? For additional information please refer to http://[facility].VisualXcript/faq/RRJ887 (This link is being provided for informational/ educational purposes only.) ? The performance of this assay has not been clinically validated in patients less than 2 years old. ?? 05/24/2022 11:2 7 AM EDT [facility] LINER MACHINE OPERATOR HELPER LAB BLOOD ORDERABLES Final Re sult [facility] [address] * Colonoscopy (12/28/2013) Pathologist [facility] Colonoscopy performed Historical Provider HEALTH MAINTENANCE Final Result from Last 3 Months or Most Recently Relevant to Health Maintenance Insurance [place] [address] [place] [phone] [facility] [place] [address] , [place] [address] , [place] [address] Care Teams Grommet Worker Relationship Specialty Start Date End Date AraratMaritza [facility] [address] [place] [address] PCP - General Family Medicine 05/24/22
--- OUTSIDE RECORDS SUMMARY | 2024-10-14 16:02 | XMS_ITS | Encounter Summary ---
Author Organization [employer] Address 75 [facility] 7t [place] [address] Care Team Providers Care Package Dyeing Machine Operator Name Role Phone [facility] Primary Care Provider [phone] Reason for Visit * Reason Onset Date Comments MRI FOOT ORDER 10/07/2024 Encounter Details Date Type Department Care Team ([facility] st Contact Info) Description 10/07/2024 Telephone [facility] [address] [place] [address] [facility] [address] [place] [address] MRI FOOT ORDER Social History Tobacco Use [...] 10/07/2024 4:11 PM EST Incoming [place] [facility] needs to be with & without contrast documented in this encounter Plan of Treatment Upcoming Encounters Date Type Department Care Team (Late st Contact Info) Description 10/26/2024 9:45 AM EST Office Visit [facility] [address] [place] [address] Maritza Alfonso FNP [address] [place] [address] documented as of this encounter Visit Diagnoses Not on filedocumented in this encounter Additional Health Concerns Assessment Noted Time PHQ-9 Depression Total Score: 0 01/15/20 9:49 AM EDT documented as of this encounter Care Teams Package Dyeing Machine Operator Relationship Specialty Start Date End Date Maritza Alfonso FNP [address] [place] [address] PCP - General Family Medicine 05/24/22 documented as of this encounter
--- OUTSIDE RECORDS SUMMARY | 2024-10-14 16:02 | XMS_ITS | Encounter Summary ---
Author Organization [employer] Address [address] [facility] [address] 7t [place] [address] Care Team Providers Care Program Review Director Name Role Phone [facility] Primary Care Provider [phone] Encounter Details Date Type Department Care Team ([facility] st Contact Info) Description 07/29/2023 Orders Only [facility] [address] [place], [place] [phone] [facility] [address] [place] [address] Neoplasm of uncertain behavior (Primary Dx) Social [...] Description 10/26/2024 9:45 AM EST Office Visit [facility] [address] [place] [address] Maritza Alfonso FNP [address] [place] [address] documented as of this encounter Visit Diagnoses Diagnosis 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
== END 2024-10-14 14:46 | disposition home or self-care (01) ==
LOC: HO.MRI 14:45
PROVIDERS: PCP Registered Nurse; Visit Provider Registered Nurse
DX: S91.302A Unspecified open wound, left foot, initial encounter (principal)
CPT/HCPCS: 73720; A9585

== ENCOUNTER 2024-10-16 16:14 | Inpatient (IN) | payer MEDICARE, MEDICAID, SELFPAY ==
[2024-10-16 17:37] VITALS: BP 154/66; PULSE 93; RESP 16; TEMP 37; O2SAT 98; BMI 22.0
--- NOTE | 2024-10-16 17:41 | ED_ITS ---
HPI - General Adult General Chief complaint: Wound/Laceration Stated complaint: ulcer on left leg Time Seen by Provider: 10/16/24 21:05 Source: patient Limitations: no limitations History of Present Illness ED Provider: Symone Houston PA-C HPI narrative: 63-year-old male with a history of diabetes, hyperlipidemia, hypertension, prior osteomyelitis of the right great toe, presents with nonhealing wound to his left foot. The wound is along the plantar aspect, inferior to left great toe, it has been present since August of 2023. He had an MRI 2 days ago, he was contacted by his PCP today to let him know that he has osteomyelitis and requires hospital admission for IV antibiotics. The patient denies fever, he has no pain at the site secondary to his diabetic neuropathy. Related Data Home Medications ?Medication ?Instructions ?Recorded ?Confirmed empagliflozin 25 mg tablet 1 tab PO DAILY 03/31/22 03/03/24 (Jardiance) aspirin 81 mg tablet,delayed 81 mg PO QAM 02/07/23 03/03/24 release cholecalciferol (vitamin D3) 50 50 mcg PO QAM 02/07/23 03/03/24 mcg (2,000 unit) capsule metformin 500 mg tablet,extended 1,000 mg PO BID 02/07/23 03/03/24 release 24 hr metoprolol succinate 50 mg 50 mg PO QAM 02/07/23 03/03/24 tablet,extended release 24 hr Previous Rx's ?Medication ?Instructions ?Recorded cyclobenzaprine 10 mg tablet 10 mg PO Q8H #14 tabs 03/21/23 naproxen 500 mg tablet 500 mg PO BID PRN pain #14 tabs 03/21/23 ezetimibe 10 mg tablet 10 mg PO QPM #90 tabs 06/26/23 doxycycline hyclate 100 mg tablet 100 mg PO BID #20 tabs 02/12/24 atorvastatin 80 mg tablet 80 mg PO QPM #90 tabs 05/20/24 isosorbide mononitrate 30 mg 30 mg PO QAM #90 tabs 09/28/24 tablet,extended release 24 hr Allergies Allergy/AdvReac Type Severity Reaction Status Date / Time piperacillin [From ZOSYN] Allergy Mild RASH Verified 10/16/24 17:40 tazobactam [From ZOSYN] Allergy Mild RASH Verified 10/16/24 17:40 vancomycin Allergy Itching Verified 10/16/24 17:40 Review of Systems 2 Review of Systems: Yes all other systems are reviewed and are negative Constitutional: Constitutional: Denies fatigue and Denies fever(s) Musculoskeletal: Musculoskeletal: Denies arthralgias and Denies joint swelling Integumentary/Breasts: Skin/Breast: Reports erythema and Reports wounds Endocrine: Endocrine: Denies fatigue PMFSH Past Medical History Attestation statement: The following information was validated with the patient. Medical History Leucopenia HTN (hypertension) High cholesterol Diabetes Other and unspecified hyperlipidemia Type 2 diabetes mellitus with unspecified complications Atherosclerotic cardiovascular disease Surgical History History of incision and drainage (~12/2017) Family History Family History Father Liver disease Mother Diabetes Heart attack Sister Diabetes Kidney disease Stomach cancer Social History Social History Household Members: None Housing: Apartment Are you a primary congregational care pastor to a significant other at home: No Do you presently have visiting nurse or other home services: No Alcohol intake: former Patient Tobacco Use Status: Never used Tobacco Advance Directives: Yes Advance Directives on File: Yes Advance Directives Date on File: 04/05/22 service: No Current occupational status: disabled Physical Exam ED Vital Signs: Vital Signs - 24 hr 10/16/24 17:37 Temperature 98.6 F Pulse Rate 93 Respiratory Rate 16 Blood Pressure 154/66 H Pulse Oximetry 98 Oxygen Delivery Method Room Air BMI result Body Mass Index 22.0 Const Other: Alert well-appearing Orientation/consciousness: patient oriented x3 Resp Effort & Inspection: normal respiratory effort Cardio Other: Normal peripheral perfusion Skin Other: Warm dry no rash Neuro General: patient oriented x3, gait normal, no focal motor deficits and CN's II- XI intact bilaterally Extrem Other: Nonhealing ulceration noted along the plantar aspect of the left foot inferior to the left great toe Psych Other: Cooperative Course Course Course Narrative: RME, this is a rapid medical exam performed by Peter Mendoza please refer to primary provider for complete H&P- 63-year-old male presents for evaluation of a nonhealing wound to his left foot. He reports a wound to the base of his left great toe dating back to August of 2023. He had an MRI 2 days ago and his primary doctor told him that he has a small osteomyelitis and referred him to the ED. The patient's MRI was performed at this facility plan for labs including blood cultures and the patient will likely require admission for IV antibiotics Medical Decision Making Medical Decision Making MDM Narrative: 63-year-old male with a history of diabetes, hyperlipidemia, hypertension, prior osteomyelitis of the right great toe, presents with nonhealing wound to his left foot. The wound is along the plantar aspect, inferior to left great toe, it has been present since August of 2023. He had an MRI 2 days ago, he was contacted by his PCP today to let him know that he has osteomyelitis and requires hospital admission for IV antibiotics. The patient denies fever, he has no pain at the site secondary to his diabetic neuropathy. Problem: Diabetes, no nonhealing ulcer History: Per patient I have considered the following differential diagnoses: Gangrene dry or wet, osteomyelitis, cellulitis, purulent cellulitis Plan: We have confirmation that the patient was osteomyelitis, he will be admitted. Screening labs including blood cultures already in process, antibiotics were ordered by the inpatient team. I have independently reviewed the following tests: Labs: No leukocytosis, not anemic, no electrolyte abnormality, inflammatory markers are elevated, lactic 1 MRI left foot: MR/MR foot LT wo/w con IMPRESSION: 1. Small focus of osteomyelitis involving the plantar aspect of the medial eminence of the first metatarsal head, measuring approximately 10 x 6 x 7 mm. 2. Within the medial corner of the periarticular proximal phalanx of the first digit, there is a second focus of suspected early osteomyelitis. 3. There is septic arthropathy of the first MTP joint. 4. There are 2 cutaneous ulcerations of abutting the first metatarsal head, one plantar and one medial, likely connected by a sinus tract. 5. There is a peripherally enhancing tenosynovitis of the flexor hallucis longus tendon. This most likely also represents septic etiology. Electronically signed by: Khai Moran MD 10/14/2024 04:32 PM [facility] Lab Data 10/16/24 18:20 10/16/24 18:20 Labs: Lab Results 10/16/24 Range/Units 18:20 WBC 4.7 L (4.8-10.8) X10*3/uL RBC 4.68 (4.60-5.80) X10*6/uL Hgb 13.0 L (14.0-18.0) g/dl Hct 39.0 L (42.0-52.0) % MCV 83.3 (80.0-98.0) fL MCH 27.8 (27.0-33.0) pg MCHC 33.3 (31.0-36.0) g/dl RDW 12.1 (11.0-16.0) % Plt Count 233 (160-400) X10*3/uL MPV 9.1 L (9.4-12.4) fL Immature Gran % (Auto) 0.2 (0.0-0.4) % Neut % (Auto) 70.8 (45-73) % Lymph % (Auto) 19.7 L (20-40) % Alexander % (Auto) 7.0 (2-11) % Eos % (Auto) 2.1 (0-4) % Baso % (Auto) 0.2 (0-2) % Lymph # (Auto) 0.9 L (1.2-4.9) X10*3/uL Alexander # (Auto) 0.3 (0.1-1.2) X10*3/uL Eos # (Auto) 0.1 (0.0-0.4) X10*3/uL Baso # (Auto) 0.0 (0.0-0.2) X10*3/uL Abs Immat Gran (auto) 0.01 (0.00-0.03) X10*3/uL Absolute Neuts (auto) 3.3 (2.0-8.3) x10*3/uL Absolute Nucleated RBC 0.000 (0.0-0.012) X10*3/uL Nucleated RBC % (auto) 0.0 (0.0-0.2) /100WBC ESR 54 H (0-15) MM/HR Sodium 136 (135-145) mmol/L Potassium 4.0 (3.3-5.1) mmol/L Chloride 100 (96-108) mmol/L Carbon Dioxide 28 (22-29) mmol/L Anion Gap 12 (12-20) BUN 14 (9-16) mg/dL Creatinine 1.24 (0.5-1.4) mg/dL Estim Creat Clear Calc 63.5 Estimated GFR 59 Random Glucose 248 H (60-115) mg/dL Lactic Acid 1.0 (0.5-2.0) mmol/L Calcium 10.0 (8.4-10.2) mg/dL Total Bilirubin 0.3 (0.0-1.0) mg/dL AST 21 (5-37) U/L ALT 16 (0-40) U/L Alkaline Phosphatase 78 (39-117) U/L C-Reactive Protein 1.74 H (< or = 0.50) mg/dL Total Protein 8.8 H (6.5-8.0) g/dL Albumin 4.4 (3.5-5.0) g/dL Lipase 25 (8-78) U/L Discharge Plan Discharge Clinical Impression: Osteomyelitis of great toe of left foot Patient Disposition: Admitted As Inpatient
[2024-10-16 18:29] LABS: MANUAL DIFF FLAG NO
[2024-10-16 18:30] LABS: Basophils Percent Auto 0.2 % (0-2); Eosinophils Absolute Auto 0.1 X10*3/uL (0.0-0.4); Eosinophils Percent Auto 2.1 % (0-4); Imm Gran Abs Auto 0.01 X10*3/uL (0.00-0.03); Imm Gran Pct Auto 0.2 % (0.0-0.4); Lymphocytes Absolute Auto 0.9 X10*3/uL (1.2-4.9); Lymphocytes Percent Auto 19.7 % (20-40); Mean Corpuscular HGB Conc 33.3 g/dl (31.0-36.0); Mean Corpuscular Hemoglobin 27.8 pg (27.0-33.0); Mean Corpuscular Volume 83.3 fL (80.0-98.0); Mean Platelet Volume 9.1 fL (9.4-12.4); Monocytes Absolute Auto 0.3 X10*3/uL (0.1-1.2); Neutrophils Absolute Auto 3.3 x10*3/uL (2.0-8.3); Neutrophils Percent Auto 70.8 % (45-73); Platelet Count 233 X10*3/uL (160-400); Red Blood Count 4.68 X10*6/uL (4.60-5.80); Red Cell Distribution Width 12.1 % (11.0-16.0); White Blood Count 4.7 X10*3/uL (4.8-10.8)
[2024-10-16 18:46] LABS: Alanine Aminotransferase 16 U/L (0-40); Albumin Level 4.4 g/dL (3.5-5.0); Alkaline Phosphatase 78 U/L (39-117); Anion Gap 12 (12-20); Aspartate Amino Transferase 21 U/L (5-37); Bilirubin Total 0.3 mg/dL (0.0-1.0); Blood Urea Nitrogen 14 mg/dL (9-16); C Reactive Protein 1.74 mg/dL (< or = 0.50); Carbon Dioxide 28 mmol/L (22-29); Chloride 100 mmol/L (96-108); Creatinine Clr Calc Pharmacy 63.5; Estimated Glomerular Filt Rate 59; Glucose Random 248 mg/dL (60-115); Lipase 25 U/L (8-78); Sodium 136 mmol/L (135-145); Total Protein 8.8 g/dL (6.5-8.0)
[2024-10-16 19:15] LABS: Erythrocyte Sedimentation Rate 54 MM/HR (0-15)
--- OUTSIDE RECORDS SUMMARY | 2024-10-16 21:23 | XMS_ITS | Encounter Summary ---
Author Organization [facility] Address [address] [place] [address] Phone Care Team Providers Care Ship/Rec/Doc Control Name Role Phone Kaden Maritza Primary Care Provider [phone] Encounter Details Date Type Department Care Team (Late Contact Info) Description 05/31/2022 Documentation Only [facility] [address] [place] [phone] Hank Cho PA Social History Tobacco Use [...] [facility] [address] [place] [address] Mick Badillo MD [address] [place] [address] [place] [phone] documented as of this encounter Visit Diagnoses Not on filedocumented in this encounter Care Teams Ship/Rec/Doc Control Relationship Specialty Start Date End Date Maritza Alfonso [address] [place] [address] PCP - General 06/26/22 documented as of this encounter
--- OUTSIDE RECORDS SUMMARY | 2024-10-16 21:23 | XMS_ITS | Encounter Summary ---
Author Organization [employer] Address [address] 7t [place] [address] Care Team Providers Care Hospice Clinical Supervisor Name Role Phone [facility] Primary Care Provider [phone] Encounter Details Date Type Department Care Team (Late st Contact Info) Description 07/18/2023 Abstract [facility] [address] [place], [place] [phone] Mireya Khalil Social History Tobacco Use Types [...] Office Visit [facility] [address] [place] [address] Maritza Alfonso FNP [address] [place] [address] documented as of this encounter Visit Diagnoses Not on filedocumented in this encounter Additional Health Concerns Assessment Noted Time PHQ-9 Depression Total Score: 4 04/03/20 23 10:08 AM EDT documented as of this encounter Care Teams Hospice Clinical Supervisor Relationship Specialty Start Date End Date Maritza Alfonso FNP [address] [place] [address] PCP - General Family Medicine 05/24/22 documented as of this encounter
--- OUTSIDE RECORDS SUMMARY | 2024-10-16 21:23 | XMS_ITS | Encounter Summary ---
Author Organization [employer] Address 75 [facility] 7t [place] [address] Care Team Providers Care Staple Processing Machine Operator Name Role Phone [facility] Primary Care Provider [phone] Reason for Referral * Consultation (Routine) - Closed Specialty Diagnoses / Procedures Referred By Contac t Referred To Contact Podiatry Diagnoses Localized swelling of left foot Charcot foot due to diabetes mellitus (CMS/HCC) Hx of diabetic foot ulcer Catarina Samayoa MD [address] [place] [address] Phone: tel: fax: [facility] [address] Phone: tel: fax: Referral ID Status Reason Start Date Expiration Date V isits Requested Visits Authorized [id number] Closed Specialty Services Required 08/13/2024 08/13/2025 1 1 Reason for Visit * Reason Comments Foot Pain Encounter Details Date Type Department Care Team (Late st Contact Info) Description 08/13/2024 1:00 PM EST Office Visit [facility] [address] [place] [phone] Catarina Samayoa MD [address] [place] [address] [phone] Localized swelling of left foot (Primary Dx); [...] localized left foot swelling and sent to [facility] ED for further evaluation. Left Foot XR [...] in his left foot. He notes his Sample Wrapper and no longer has follow-up. Review of [...] Diagnoses Charcot foot due to diabetes mellitus ([facility]) Relevant Medications amoxicillin-clavulanate (Augmentin) 875-125 [...] Description 10/26/2024 9:45 AM EST Office Visit [facility] [address] [place] [address] [facility] [address] [place] [address] Scheduled Referrals Name Type Priority Associated Diagnoses Orde r Schedule Referral to Podiatry Outpatient Referral Routine Localized swelling of left foot Charcot foot due to diabetes mellitus ([facility]) Hx of diabetic foot ulcer [...] AM EST Narrative 10/02/2024 9:19 AM EST ?[facility] ?[address] ?[place] [address] ?XRay Report ? Signed ? Patient: Octavio Néstor Hardin ?MR#: [id number] ?? [id number] ? : 1960 ?Acct:[id number] ? Age/Sex: 63 / M ?ADM Date: 08/13/24 ? Loc: HO.[facility]HCX ? Attending Dr: Catarina Samayoa MD ? Ordering Physician: Catarina Samayoa MD ?? Date of Service: 08/13/24 ?? Procedure(s): XR foot LT min 3V ?? Accession Number(s): [id number] ? cc: Catarina Samayoa MD; [facility] ? EXAMINATION: ?? [...] DD/ 1146 ? TD/TT: 08/13/24 1148 ? Cost Accounting Analyst: SR ? Procedure Note Estephaniater, Image - 10/02/[address] [address] XRay Report Signed Patient: Néstor Chamorro LMR#: [id number] : 1Acct:[id number] Age/Sex: 63 / MADM Date: 08/13/24 [facility]: Catarina Samayoa MD Ordering Physician: Catarina Samayoa MD Date of Service: 08/13/24 Procedure(s): XR foot LT min 3V Accession Number(s): [id number] cc: Catarina Samayoa MD; [facility] EXAMINATION: XR FOOT LEFT CLINICAL INFORMATION: Pain. [...] 10/02/24 0916 DD/ 1146 TD/TT: 08/13/24 1148 Cost Accounting Analyst: Catarina Samayoa MD IMG XR PROCEDURES Final Re sult documented in this encounter Visit Diagnoses Diagnosis Localized swelling of left foot- Primary Charcot foot due to diabetes mellitus (CMS/HCC) Hx of diabetic foot ulcer documented in this encounter Additional Health Concerns Assessment Noted Time PHQ-9 Depression Total Score: 0 01/15/20 24 9:49 AM EDT documented as of this encounter Care Teams Staple Processing Machine Operator Relationship Specialty Start Date End Date Maritza Alfonso FNP [address] [place] [address] PCP - General Family Medicine 05/24/22 documented as of this encounter
--- OUTSIDE RECORDS SUMMARY | 2024-10-16 21:23 | XMS_ITS | Encounter Summary ---
Author Organization [employer] Address [address] [facility] 7t [place] [address] Care Team Providers Care Truck Despatcher Name Role Phone [facility] Primary Care Provider [phone] Reason for Visit * Reason Comments Pre-visit Planning SDOH screening negat araceli and tobacco screening negative Encounter Details Date Type Department Care Team ([facility] st Contact Info) Description 10/12/2024 Patient Outreach [facility] [address] [place] [address] [facility] [address] [place] [address] Pre-visit Planning (SDOH screening negative and tobacco [...] the past 12 months, has t he [employer], gas, oil or water [employer] threatened to shut off services in your [...] Description 10/26/2024 9:45 AM EST Office Visit [facility] [address] [place] [address] [facility] [address] [place] [address] documented as of this encounter Visit Diagnoses Not on filedocumented in this encounter Additional Health Concerns Assessment Noted Time PHQ-9 Depression Total Score: 0 01/15/20 24 9:49 AM EDT documented as of this encounter Care Teams Truck Despatcher Relationship Specialty Start Date End Date [place] IVONNE Salas [address] [place] [address] PCP - General Family Medicine 05/24/22 documented as of this encounter
--- OUTSIDE RECORDS SUMMARY | 2024-10-16 21:23 | XMS_ITS | Encounter Summary ---
Author Organization [facility] Address [address] [place] [address] Phone Care Team Providers Care Stem Frazer Name Role Phone Kaden Maritza Primary Care Provider [phone] Encounter Details Date Type Department Care Team (Late Contact Info) Description 02/22/2023 Documentation Only [facility] [address] [place] [phone] Hank Cho PA Social History Tobacco Use [...] Visit [facility] [address] [place] [address] Mick Badillo MD [address] [place] [address] [place] [phone] documented as of this encounter Visit Diagnoses Not on filedocumented in this encounter Care Teams Stem Frazer Relationship Specialty Start Date End Date Maritza Alfonso [address] [place] [address] PCP - General 06/26/22 documented as of this encounter
--- OUTSIDE RECORDS SUMMARY | 2024-10-16 21:23 | XMS_ITS | Encounter Summary ---
Author Organization [employer] Address [address] [facility] [address] [facility] [address] [facility] [address] 7t [place] [address] Care Team Providers Care Mechanical Adjuster Name Role Phone [facility] Primary Care Provider [phone] Reason for Visit * Reason Onset Date Comments Referral 07/03/2024 Encounter Details Date Type Department Care Team ([facility] st Contact Info) Description 07/03/2024 Telephone [facility] [address] [place], [place] [phone] [facility] [address] [place] [address] Referral Social History Tobacco Use Types Packs/Day [...] Y/N: Yes Provider name or facility name: [facility] Escort needed: Y/N: No Do you have a wheelchair: Y/N: No If yes- Manual or electric: Visits: (amount of visits) ( x monthly, weekly, daily) documented in this encounter Plan of Treatment Upcoming Encounters Date Type Department Care Team (Late st Contact Info) Description 10/26/2024 9:45 AM EST Office Visit [facility] [address] [place] [address] Maritza Alfonso FNP [address] [place] [address] documented as of this encounter Visit Diagnoses Not on filedocumented in this encounter Additional Health Concerns Assessment Noted Time PHQ-9 Depression Total Score: 0 01/15/20 9:49 AM EDT documented as of this encounter Care Teams Mechanical Adjuster Relationship Specialty Start Date End Date Maritza Alfonso FNP [address] [place] [address] PCP - General Family Medicine 05/24/22 documented as of this encounter
--- OUTSIDE RECORDS SUMMARY | 2024-10-16 21:23 | XMS_ITS | Encounter Summary ---
Author Organization [facility] Address [address] [place] [address] Phone Care Team Providers Care Lime Kiln Operator Name Role Phone Kaden Maritza Primary Care Provider [phone] Encounter Details Date Type Department Care Team (Late Contact Info) Description 05/28/2022 Documentation Only [facility] [address] [place] [phone] Hank Cho PA Social History Tobacco Use [...] Visit [facility] [address] [place] [address] Mick Badillo MD [address] [place] [address] [place] [phone] documented as of this encounter Visit Diagnoses Not on filedocumented in this encounter Care Teams Lime Kiln Operator Relationship Specialty Start Date End Date Maritza Alfonso [address] [place] [address] PCP - General 06/26/22 documented as of this encounter
--- OUTSIDE RECORDS SUMMARY | 2024-10-16 21:23 | XMS_ITS | Encounter Summary ---
Author Organization [facility] Address [address] [place] [address] Phone Care Team Providers Care Water Reuse Program Manager Name Role Phone Kaden Maritza Primary Care Provider [phone] Encounter Details Date Type Department Care Team (Late Contact Info) Description 02/25/2023 Documentation Only [facility] [address] [place] [phone] Hank Cho PA Social History Tobacco Use [...] Visit [facility] [address] [place] [address] Mick Badillo MD [address] [place] [address] [place] [phone] documented as of this encounter Visit Diagnoses Not on filedocumented in this encounter Care Teams Water Reuse Program Manager Relationship Specialty Start Date End Date Maritza Alfonso [address] [place] [address] PCP - General 06/26/22 documented as of this encounter
--- OUTSIDE RECORDS SUMMARY | 2024-10-16 21:23 | XMS_ITS | Encounter Summary ---
Author Organization [facility] Address [address] [place] [address] Phone Care Team Providers Care Reject Opener And Filler Name Role Phone [facility] Primary Care Provider [phone] Encounter Details Date Type Department Care Team (Late Contact Info) Description 10/25/2023 Documentation Only [facility] [address] [place] [address] Diane Morrison [address] [place] [address] Social History Tobacco Use Types [...] Visit [facility] [address] [place] [address] Mick Badillo MD [address] [place] [address] [place] [address] documented as of this encounter Visit Diagnoses Not on filedocumented in this encounter Care Teams Reject Opener And Filler Relationship Specialty Start Date End Date [facility] [address] [place], [place] [phone] PCP - General 06/26/22 documented as of this encounter
--- OUTSIDE RECORDS SUMMARY | 2024-10-16 21:23 | XMS_ITS | Encounter Summary ---
Author Organization [facility] Address [address] [place] [address] Phone Care Team Providers Care Supervisor Counseling And Guidance Name Role Phone [facility] Primary Care Provider [phone] Encounter Details Date Type Department Care Team (Late Contact Info) Description 07/07/2024 Documentation Only [facility] [address] [place] [address] Diane Morrison [address] [place] [address] Social History Tobacco Use [...] Visit [facility] [address] [place] [address] Mick Badillo MD [address] [place] [address] [place] [address] documented as of this encounter Visit Diagnoses Not on filedocumented in this encounter Care Teams Supervisor Counseling And Guidance Relationship Specialty Start Date End Date [facility] [address] [place], [place] [phone] PCP - General 06/26/22 documented as of this encounter
--- OUTSIDE RECORDS SUMMARY | 2024-10-16 21:23 | XMS_ITS | Encounter Summary ---
Author Organization [facility] Address [address] [place] [address] Phone Care Team Providers Care Channeling Machine Runner Name Role Phone [facility] Primary Care Provider Encounter Details Date Type Department Care Team (Late Contact Info) Description 09/02/2023 Orders Only [facility] [address] [place] [address] Hank Cho PA Chronic kidney [...] Visit [facility] [address] [place] [address] Mick Badillo MD [address] [place] [address] [place] [address] documented as of this encounter Visit Diagnoses Diagnosis Chronic kidney disease, stage 2 (mild) Essential (primary) hypertension Type 2 diabetes mellitus, not otherwise specified (HCC) documented in this encounter Care Teams Channeling Machine Runner Relationship Specialty Start Date End Date [facility] [address] [place] [address] PCP - General 06/26/22 documented as of this encounter
--- OUTSIDE RECORDS SUMMARY | 2024-10-16 21:23 | XMS_ITS | Encounter Summary ---
Author Organization [facility] Address [address] [place] [address] Phone Care Team Providers Care Avian Keeper Name Role Phone [facility] Primary Care Provider [phone] Encounter Details Date Type Department Care Team (Late Contact Info) Description 10/25/2023 Documentation Only [facility] [address] [place] [address] Diane Morrison [address] [place] [address] Social History Tobacco Use Types [...] [facility] [address] [place] [address] Mick Badillo MD [address] [place] [address] [place] [address] documented as of this encounter Visit Diagnoses Not on filedocumented in this encounter Care Teams Avian Keeper Relationship Specialty Start Date End Date [facility] [address] [place], [place] [phone] PCP - General 06/26/22 documented as of this encounter
--- OUTSIDE RECORDS SUMMARY | 2024-10-16 21:23 | XMS_ITS | Encounter Summary ---
Author Organization [employer] Address [address] [place] [address] Care Team Providers Care Core Blower Name Role Phone [facility] Primary Care Provider [phone] Encounter Details Date Type Department Care Team ([facility] st Contact Info) Description 10/16/2024 Telephone [facility] [address] [place], [place] [phone] [facility] [address] [place] [address] Social History Tobacco Use Types Packs/Day Years [...] encounter Miscellaneous Notes * Telephone Encounter - Kristan Maldonado RN - 10/16/2024 3:56 PM EST T/C placed to [facility] ED per request of Maritza Alfonso SENIOR SUPPLY CHAIN ANALYST to advise that pt will present to ED for consideration of IV antibiotics. Pts recent Mri showed osteomyelitis and septic arthropathy of 1st metatarsal joint. No answer at ED, call disconnected after being placed on hold for 5 minutes. documented in this encounter Plan of Treatment Upcoming Encounters Date Type Department Care Team (Late st Contact Info) Description 10/26/2024 9:45 AM EST Office Visit [facility] [address] [place] [address] Maritza Alfonso FNP [address] [place] [address] documented as of this encounter Visit Diagnoses Not on filedocumented in this encounter Additional Health Concerns Assessment Noted Time PHQ-9 Depression Total Score: 0 01/15/20 9:49 AM EDT documented as of this encounter Care Teams Core Blower Relationship Specialty Start Date End Date Maritza Alfonso FNP [address] [place] [address] PCP - General Family Medicine 05/24/22 documented as of this encounter
--- OUTSIDE RECORDS SUMMARY | 2024-10-16 21:23 | XMS_ITS | Encounter Summary ---
Author Organization [employer] Address [address] [place] [address] Care Team Providers Care Drum Loader And Unloader Name Role Phone [facility] Primary Care Provider [phone] Encounter Details Date Type Department Care Team (Late st Contact Info) Description 10/16/2024 Orders Only GENERIC EXTERNAL DATA DEPARTMENT Provider, Generic External Data Social History Tobacco Use Types Packs/Day Years [...] Description 10/26/2024 9:45 AM EST Office Visit [facility] [address] [place], [place] [phone] [facility] [address] [place], [place] [phone] documented as of this encounter Procedures Procedure Name Priority Date/Time Associated Diagnosis Comments CBC WITH AUTO DIFFERENTIAL Routine 10/16/2024 6:20 PM EST SED RATE BY MODIFIED WESTERGREN Routine 10/16/2024 6:20 PM EST C-REACTIVE PROTEIN Routine 10/16/2024 6: 20 PM EST LIPASE Routine 10/16/2024 6:20 PM EST LACTIC ACID Routine 10/16/2024 6:20 PM EST COMPREHENSIVE METABOLIC PANEL Routine 10/16/2024 6:20 PM EST documented in this encounter Results * (ABNORMAL) Sed Rate by Modified Westergren (10/16/2024 6:20 PM EST) Erythrocyte Sedimentation Rate 54(H) 0 - 15 MM/HR [facility] Comment:Patients with polycy themia and many hemoglobin abnormalitiesmay have depressed sed rates whereas patients with anemiamay have elevated sed rates. 10/16/2024 6:20 PM EST 10/16/2024 6:27 PM EST Generic External Data Provider LAB BLOOD ORDERAB LES Final Result Performing Organization Address [facility] Phone Number [facility] [address] [place] [phone] * Lactic Acid (10/16/2024 6:20 PM EST) Lactic Acid 1.0 0.5 - 2.0 mmol/L [facility] 10/16/2024 6:20 PM EST 10/16/2024 6:27 PM EST Generic External Data Provider LAB BLOOD ORDERAB LES Final Result Performing Organization Address [facility] Phone Number [facility] [address] [place] [phone] * Lipase (10/16/2024 6:20 PM EST) Lipase 25 8 - 78 U/L [facility] 10/16/2024 6:20 PM EST 10/16/2024 6:27 PM EST Generic External Data Provider LAB BLOOD ORDERAB LES Final Result Performing Organization Address [facility] Phone Number [facility] [address] [place] [phone] * (ABNORMAL) C-reactive Protein (10/16/2024 6:20 PM EST) C Reactive Protein 1.74(H) < or = 0.50 mg/dL [facility] 10/16/2024 6:20 PM EST 10/16/2024 6:27 PM EST us Generic External Data Provider LAB BLOOD ORDERAB LES Final Result [facility] [address] [place] [phone] * (ABNORMAL) Comprehensive Metabolic Panel (10/16/2024 6:20 PM EST) Sodium 136 135 - 145 mmol/L [facility] Potassium 4.0 3.3 - 5.1 mmol/L [facility] Chloride 100 96 - 108 mmol/L [facility] Carbon Dioxide 28 22 - 29 mmol/L [facility] Anion Gap 12 12 - 20 [facility] Urea Nitrogen (BUN) 14 9 - 16 mg/dL [facility] Creatinine, Serum 1.24 0.5 - 1.4 mg/dL [facility] Creatinine Clr Calc Pharmacy 63.5 [facility] Comment:eGFR (calculated fro m the MDRD study equation) and eCrCl(calculated from the Cockcroft-Gault equation) are based ondifferent parameters and may not yield comparable results.If eCrCl result is absurd, please check patient'sheight/weight. Estimated Glomerular Filt Rate 59 [facility] Comment:Chronic Kidney Disea se: Estimated GFR < 60 mL/min/1.45f6Pnobqr Kidney Disease: Estimated GFR < 15 mL/min/1.73m2 Glucose 248(H) 60 - 115 mg/dL [facility] Calcium 10.0 8.4 - 10.2 mg/dL [facility] Bilirubin, Total 0.3 0.0 - 1.0 mg/dL [facility] Aspartate Amino Transferase 21 5 - 37 U/L [facility] Alanine Aminotransferase 16 0 - 40 U/L [facility] Total Protein 8.8(H) 6.5 - 8.0 g/dL [facility] Albumin Level 4.4 3.5 - 5.0 g/dL [facility] Alkaline Phosphatase 78 39 - 117 U/L [facility] 10/16/2024 6:20 PM EST 10/16/2024 6:27 PM EST us Generic External Data Provider LAB BLOOD ORDERAB LES Final Result [facility] [address] [place] [phone] * (ABNORMAL) CBC auto differential (10/16/2024 6:20 PM EST) White Blood Count 4.7(L) 4.8 - 10.8 X10*3/uL [facility] Red Blood Count 4.68 4.60 - 5.80 X10*6/uL [facility] Hemoglobin 13.0(L) 14.0 - 18.0 g/dl [facility] Hematocrit 39.0(L) 42.0 - 52.0 % [facility] Mean Corpuscular Volume 83.3 80.0 - 98.0 fL [facility] Mean Corpuscular Hemoglobin 27.8 27.0 - 33.0 pg [facility] Mean Corpuscular HGB Conc 33.3 31.0 - 36.0 g/dl [facility] Red Cell Distribution Width 12.1 11.0 - 16.0 % [facility] Platelet Count 233 160 - 400 X10*3/uL [facility] Mean Platelet Volume 9.1(L) 9.4 - 12.4 fL [facility] Neutrophils Percent Auto 70.8 45 - 73 % [facility] Imm Gran Pct Auto 0.2 0.0 - 0.4 % [facility] Lymphocytes Percent Auto 19.7(L) 20 - 40 % [facility] Monocytes Percent Auto 7.0 2 - 11 % [facility] Eosinophils Percent Auto 2.1 0 - 4 % [facility] Basophils Percent Auto 0.2 0 - 2 % [facility] NRBC Pct Auto 0.0 0.0 - 0.2 /100WBC [facility] Neutrophils Absolute Auto 3.3 2.0 - 8.3 x10*3/uL [facility] Imm Gran Abs Auto 0.01 0.00 - 0.03 X10*3/uL [facility] Lymphocytes Absolute Auto 0.9(L) 1.2 - 4.9 X10*3/uL [facility] Monocytes Absolute Auto 0.3 0.1 - 1.2 X10*3/uL [facility] Eosinophils Absolute Auto 0.1 0.0 - 0.4 X10*3/uL [facility] Basophils Absolute Auto 0.0 0.0 - 0.2 X10*3/uL [facility] NRBC Abs Auto 0.000 0.0 - 0.012 X10*3/uL [facility] 10/16/2024 6:20 PM EST 10/16/2024 6:27 PM EST us Generic External Data Provider LAB BLOOD ORDERAB LES Final Result Performing Organization Address City/State/[facility] Co de Phone Number [facility] [address] [place] [phone] documented in this encounter Visit Diagnoses Not on filedocumented in this encounter Additional Health Concerns Assessment Noted Time PHQ-9 Depression Total Score: 0 01/15/20 24 9:49 AM EDT documented as of this encounter Care Teams Drum Loader And Unloader Relationship Specialty Start Date End Date Maritza Alfonso FNP [address] [place] [address] PCP - General Family Medicine 05/24/22 documented as of this encounter
--- OUTSIDE RECORDS SUMMARY | 2024-10-16 21:23 | XMS_ITS | Encounter Summary ---
Author Organization [facility] Address [address] [facility] [address] [place] [address] Care Team Providers Care Office Sweeper Name Role Phone Maritza Alfonso Primary Care Provider [phone] Reason for Referral * Imaging (STAT) - Closed Specialty Diagnoses / Procedures Referred By Guanakito t Referred To Contact Radiology Diagnoses Wound of left foot Procedures MR Foot w and w/o Contrast Left Maritza Alfonso FNP [address] [place] [address] Phone: tel: fax: [facility] [address] [place], [place] Phone: tel: fax: Referral ID Status Reason Start Date Expiration Date Visits Re quested Visits Authorized [id number] Closed 10/08/2024 10/08/2025 1 1 Encounter Details Date Type Department Care Team (Late st Contact Info) Description 10/08/2024 Orders Only [facility] [address] [place] [address] Maritza Alfonso FNP [address] [place], [place] [phone] Wound of left foot (Primary Dx) Social [...] Description 10/26/2024 9:45 AM EST Office Visit [facility] [address] [place] [address] [facility] [address] [place] [address] documented as of this encounter Procedures Procedure Name Priority Date/Time Associated Diagnosis Comments MR FOOT W AND WO CONTRAST LEFT STAT 10/14/2024 2:44 PM EST Wound of left foot documented in this encounter Results * MR Foot w and w/o Contrast Left (10/14/2024 2:44 PM EST) Anatomical Region Laterality Modality Lower Extremities, Foot Left Magnetic Resonance 10/14/2024 2:44 PM EST Narrative 10/14/2024 4:35 PM EST ? [facility] ?[address] ?[place] [address] ? Magnetic Resonance Report ? Signed ? Patient: Néstor Chamorro ?MR#: [id number] ?? [id number] ? : 1960 ?Acct:[id number] ? Age/Sex: 63 / M ?ADM Date: 10/14/24 ? Loc: HO.MRI ? Attending Dr: Maritza Alfonso JOB PRESS FEEDER ? Ordering Physician: Maritza Alfonso ?? Date of Service: 10/14/24 ?? Procedure(s): MR foot LT wo/w con ?? Accession Number(s): [id number] ? cc: Maritza Alfonso JOB PRESS FEEDER ? EXAMINATION: ?? MR FOOT WITHOUT AND WITH CONTRAST, LEFT ? CLINICAL INFORMATION: ?? Nonhealing wound first digit left foot, rule out osteomyelitis. ? COMPARISON: ?? No prior MRI. Correlation made with films left foot 08/13/2024. ? TECHNIQUE: ?? MRI of the left forefoot was performed before and after the intravenous ?? administration of 8 mL Gadavist on a high-field 1.5 Susan Siemens ?? scanner. ? FINDINGS: ?? There is a 6 mm soft tissue ulceration in the soft tissues immediately ?? medial to the medial aspect of the first metatarsal head (series 10, ?? image 22). There is T2 hyperintense fluid and enhancement extending ?? through an inferior linear tract, tracking into the region of the first ?? MTP joint (series 10, image 22). This tracks to a second 4 mm soft ?? tissue ulceration in the plantar surface, just below the medial ?? eminence of the first metatarsal head (series 10, image 25). Findings ?? are consistent with 2 cutaneous ulcerations with sinus tract. ? There is a joint effusion in the first MTP joint, with peripheral ?? enhancing synovium suggesting changes of septic arthritis. ? There is a focus of T1 hypointense, T2 hyperintense, and enhancing bone ?? marrow signal involving the plantar aspect of the medial eminence of ?? the first metatarsal head, measuring 10 x 6 x 7 mm (series 3, image 22; ?? series 5, image 24; series 11, image 23-24). Findings are consistent ?? with a small focus of osteomyelitis. ? There is mild edema with subtle T1 enhancement in the periarticular ?? medial aspect of the first digit, proximal phalanx, likely representing ?? early osteomyelitis ?? No additional abnormal bone marrow signal or enhancement present. ? There is fluid surrounding the mid and distal flexor hallucis longus ?? tendon, spanning from the proximal metatarsal region to the most distal ?? aspect of the tendon, with associated 18 mm peripheral region of ?? enhancement, consistent with septic tenosynovitis (series 11, image 20). ? MR/MR foot LT wo/w con ?? IMPRESSION: ?? 1. Small focus of osteomyelitis involving the plantar aspect of the ?? medial eminence of the first metatarsal head, measuring approximately ?? 10 x 6 x 7 mm. ?? 2. Within the medial corner of the periarticular proximal phalanx of ?? the first digit, there is a second focus of suspected early ?? osteomyelitis. ?? 3. There is septic arthropathy of the first MTP joint. ?? 4. There are 2 cutaneous ulcerations of abutting the first metatarsal ?? head, one plantar and one medial, likely connected by a sinus tract. ?? 5. There is a peripherally enhancing tenosynovitis of the flexor ?? hallucis longus tendon. This most likely also represents septic ?? etiology. ? Electronically signed by: ??Khai Moran MD ??10/14/2024 04:32 PM EST RP ? Dictated By: ?Khai Moran MD ? Signed By: ?<Electronically signed by Khai Moran MD in OV> ?10/14/24 1632 ? DD/ 1444 ? TD/TT: 10/14/24 1545 ? Acoustical Material Worker: ? Procedure Note Stan, Kiel - 10/14/[address] [address] Magnetic Resonance Report Signed Patient: Néstor Chamorro LMR#: [id number] : 1960cct:[id number] Age/Sex: 63 / MADM Date: 10/14/24 Loc: HO.MRI Attending Dr: Maritza CORONADO Ordering Physician: Maritza Alfonso Date of Service: 10/14/24 Procedure(s): MR foot LT wo/w con Accession Number(s): [id number] cc: Maritza Alfonso [facility] EXAMINATION: MR FOOT WITHOUT AND WITH CONTRAST, LEFT CLINICAL INFORMATION: Nonhealing wound first digit left foot, rule out osteomyelitis. COMPARISON: No prior MRI. Correlation made with films left foot 08/13/2024. TECHNIQUE: MRI of the left forefoot was performed before and after the intravenous administration of 8 mL Gadavist on a high-field 1.5 Susan Siemens scanner. FINDINGS: There is a 6 mm soft tissue ulceration in the soft tissues immediately medial to the medial aspect of the first metatarsal head (series 10, image 22). There is T2 hyperintense fluid and enhancement extending through an inferior linear tract, tracking into the region of the first MTP joint (series 10, image 22). This tracks to a second 4 mm soft tissue ulceration in the plantar surface, just below the medial eminence of the first metatarsal head (series 10, image 25). Findings are consistent with 2 cutaneous ulcerations with sinus tract. There is a joint effusion in the first MTP joint, with peripheral enhancing synovium suggesting changes of septic arthritis. There is a focus of T1 hypointense, T2 hyperintense, and enhancing bone marrow signal involving the plantar aspect of the medial eminence of the first metatarsal head, measuring 10 x 6 x 7 mm (series 3, image 22; series 5, image 24; series 11, image 23-24). Findings are consistent with a small focus of osteomyelitis. There is mild edema with subtle T1 enhancement in the periarticular medial aspect of the first digit, proximal phalanx, likely representing early osteomyelitis No additional abnormal bone marrow signal or enhancement present. There is fluid surrounding the mid and distal flexor hallucis longus tendon, spanning from the proximal metatarsal region to the most distal aspect of the tendon, with associated 18 mm peripheral region of enhancement, consistent with septic tenosynovitis (series 11, image 20). MR/MR foot LT wo/w con IMPRESSION: 1. Small focus of osteomyelitis involving the plantar aspect of the medial eminence of the first metatarsal head, measuring approximately 10 x 6 x 7 mm. 2. Within the medial corner of the periarticular proximal phalanx of the first digit, there is a second focus of suspected early osteomyelitis. 3. There is septic arthropathy of the first MTP joint. 4. There are 2 cutaneous ulcerations of abutting the first metatarsal head, one plantar and one medial, likely connected by a sinus tract. 5. There is a peripherally enhancing tenosynovitis of the flexor hallucis longus tendon. This most likely also represents septic etiology. Electronically signed by: Khai Moran MD 10/14/2024 04:32 PM [facility] Dictated By: Khai Moran MD Signed By: <Electronically signed by Khai Moran MD in OV> 10/14/24 1632 DD/ 1444 TD/TT: 10/14/24 1545 Acoustical Material [facility]er[facility] IM[facility] MRI PROCEDURES Final Resu lt documented in this encounter Visit Diagnoses Diagnosis Wound of left foot- Primary documented in this encounter Additional Health Concerns Assessment Noted Time PHQ-9 Depression Total Score: 0 01/15/20 24 9:49 AM EDT documented as of this encounter Care Teams Office Sweeper Relationship Specialty Start Date End Date Maritza Alfonso FNP [address] [place] [address] PCP - General Family Medicine 05/24/22 documented as of this encounter
--- OUTSIDE RECORDS SUMMARY | 2024-10-16 21:23 | XMS_ITS | Encounter Summary ---
Author Organization [facility] Address [address] [place] [address] Phone Care Team Providers Care Zinc Plate Grainer Name Role Phone Kaden Maritza Primary Care Provider [phone] Encounter Details Date Type Department Care Team (Late Contact Info) Description 06/01/2022 Documentation Only [facility] [address] [place] [phone] Hank Cho PA Social History Tobacco Use [...] Visit [facility] [address] [place] [address] Mick Badillo MD [address] [place] [address] [place] [phone] documented as of this encounter Visit Diagnoses Not on filedocumented in this encounter Care Teams Zinc Plate Grainer Relationship Specialty Start Date End Date Maritza Alfonso [address] [place] [address] PCP - General 06/26/22 documented as of this encounter
--- OUTSIDE RECORDS SUMMARY | 2024-10-16 21:23 | XMS_ITS | Encounter Summary ---
Author Organization [facility] Address [address] [place] [address] Phone Care Team Providers Care Experimental Plastics Fabricator Name Role Phone Kaden Maritza Primary Care Provider [phone] Encounter Details Date Type Department Care Team (Late Contact Info) Description 06/22/2022 Documentation Only [facility] [address] [place] [phone] Hank Cho PA Social History Tobacco Use [...] Visit [facility] [address] [place] [address] Mick Badillo MD [address] [place] [address] [place] [phone] documented as of this encounter Visit Diagnoses Not on filedocumented in this encounter Care Teams Experimental Plastics Fabricator Relationship Specialty Start Date End Date Maritza Alfonso [address] [place] [address] PCP - General 06/26/22 documented as of this encounter
--- OUTSIDE RECORDS SUMMARY | 2024-10-16 21:23 | XMS_ITS | Encounter Summary ---
Author Organization [facility] Address [address] [place] [address] Phone Care Team Providers Care Change Advisor Name Role Phone [facility] Primary Care Provider [phone] Encounter Details Date Type Department Care Team (Late Contact Info) Description 05/31/2022 Documentation Only [facility] [address] [place] [address] Alexander Zhou MD [address] [place] [address] [place] [address] Social History Tobacco Use Types [...] Visit [facility] [address] [place] [address] Mick Badillo MD [address] [facility] [place] [address] documented as of this encounter Visit Diagnoses Not on filedocumented in this encounter Care Teams Change Advisor Relationship Specialty Start Date End Date [facility] [address] [place] [phone] PCP - General 06/26/22 documented as of this encounter
--- OUTSIDE RECORDS SUMMARY | 2024-10-16 21:23 | XMS_ITS | Encounter Summary ---
Author Organization [facility] Address [address] [place] [address] Phone Care Team Providers Care Library Media Assistant Name Role Phone [facility] Primary Care Provider [phone] Encounter Details Date Type Department Care Team (Late Contact Info) Description 06/29/2024 Orders Only [facility] [address] [place] [address] Hank Cho PA Chronic kidney [...] Visit [facility] [address] [place] [address] Mick Badillo MD [address] [place] [address] [place] [address] documented as of this encounter Visit Diagnoses Diagnosis Chronic kidney disease, stage 2 (mild) Type 2 diabetes mellitus, not otherwise specified (HCC) Essential (primary) hypertension Microalbuminuria documented in this encounter Care Teams Library Media Assistant Relationship Specialty Start Date End Date [facility] [address] [place] [address] PCP - General 06/26/22 documented as of this encounter
--- OUTSIDE RECORDS SUMMARY | 2024-10-16 21:23 | XMS_ITS | Encounter Summary ---
Author Organization [facility] Address [address] [place] [address] Phone Care Team Providers Care Turbine Engineer Name Role Phone Kaden Maritza Primary Care Provider Encounter Details Date Type Department Care Team (Late Contact Info) Description 02/26/2023 Documentation Only [facility] [address] [place] [phone] Hank Cho PA Social History Tobacco Use [...] Visit [facility] [address] [place] [address] Mick Badillo MD [address] [place] [address] [place] [phone] documented as of this encounter Visit Diagnoses Not on filedocumented in this encounter Care Teams Turbine Engineer Relationship Specialty Start Date End Date Maritza Alfonso [address] [place] [address] PCP - General 06/26/22 documented as of this encounter
--- OUTSIDE RECORDS SUMMARY | 2024-10-16 21:24 | XMS_ITS | Clinical Summary ---
Author Organization [employer] Address [address] [facility] 7t [place] [address] Care Team Providers Care Freight Tallier Name Role Phone [facility] Primary Care Provider [phone] Allergies Active Allergy Reactions Criticality Noted Date [...] kidney disease, unspecified CKD stage, unspecified whether intermodal dispatcher insulin use ([facility]) USE ONCE DAILY WITH INSULIN 100 each 3 08/16/20 22 Active Additional Information Patient not taking.Reported on 10/16/2023 Blood Glucose Monitoring Suppl (True Metrix Meter) w/Device kitIndications: Type 2 diabetes mellitus with hyperglycemia, with long-term current use of insulin ([facility]) 1 kit before breakfast, before lunch, before evening meal, and at bedtime. 1 kit 09/20/19 23 Active TRUEplus Lancets 33G miscIndications :Type 2 diabetes mellitus with hyperglycemia, with long-term current use of insulin ([facility]) TEST BLOOD SUGAR 4 TIMES A DAY 100 each 11 04/09/20 23 Active glucose blood (FREESTYLE LITE) test stripIndication s:Type 2 diabetes mellitus with hyperglycemia, with long-term current use of insulin ([facility]) TEST BLOOD SUGAR 4 TIMES A DAY 100 strip 04/09/20 23 Active dulaglutide (Trulicity) 1.5 MG/0.5ML solution pen-injectorInd ications:Type 2 diabetes mellitus with hyperglycemia, without long-term current use of insulin ([facility]) Inject 1.5 mg under the skin 1 (one) time per week. 4 each 01/15/20 24 Active metFORMIN XR (Glucophage-XR) 500 MG 24 hr tabletIndicatio ns:Type 2 diabetes mellitus with hypoglycemia without coma, without long-term current use of insulin ([facility]) Take 1 tablet (500 mg) by mouth [...] hyperglycemia, without long-term current use of insulin ([facility]) Take 1 tablet (25 mg) by mouth [...] coma, without long-term current use of insulin ([facility]) Take 1 tablet (10 mg) by mouth [...] PSA: 04/2023 Vision Exam: Referred to [facility] 04/2023 Immunizations:Declines PCV 20 04/2023 Assessment & [...] 08/13/2022 Overview (04/03/2023): ?? Folllowed by [facility] cardiology Dr. Morales ?? 01/2023 Negative Echo. Negative stress test Leukopenia 03/26/2022 Overview (04/03/2023): ?? Followed by hematology/oncology at [facility]. Last seen apporx 6 months ago. Reports [...] amputation Eye Exam: Referred back to [facility] optometry 04/2023 Statin: Yes ASA: Yes YASHIRA/ARB: [...] ordered labs. Will re order to [facility] lab today Essential (primary) hypertension 08/12/2012 Overview [...] Encounters Date Type Department Care Team Description 10/16/2024 Orders Only GENERIC EXTERNAL DATA DEPARTMENT Provider, Generic External Data 10/16/2024 Telephone [facility] [address] [place] [phone] Maritza Alfonso FNP 10/12/2024 Patient Outreach [facility] [address] [place] [phone] Maritza Alfonso FNP Pre-visit Planning (SDOH screening negative and tobacco screening negative) 10/08/2024 Orders Only [facility] [address] [place] [phone] Maritza Alfonso FNP Wound of left foot (Primary Dx) 10/07/2024 11:00 AM EST Office Visit [facility] [address] [place] [phone] Maritza Alfonso FNP Type 2 diabetes mellitus with hyperglycemia, without long-term current use of insulin ([facility]) (Primary Dx); Wound of left foot 10/07/2024 Telephone [facility] [address] [place] [address] [place] Maritza [facility] MRI FOOT ORDER 10/07/2024 Travel 10/02/2024 Telephone [facility] [address] [place] [address] Rosa Solano, RN Results 09/28/2024 Refill [facility] [address] [place] [address] [place] mooreIVONNE 08/13/2024 1:00 PM EST Office Visit [facility] [address] [place] [address] Catarina Samayoa MD Localized swelling of left [...] Description 10/26/2024 9:45 AM EST Office Visit [facility] [address] [place] [address] Maritza Alfonso, LEAD INSTALLER [address] [place] [address] Health Maintenance Due Date Last Done Comments [...] topic Meningococcal Vaccine Aged Out No terrell warrne eligible based on patient's age to complete this topic RSV under 20 months Aged Out No longe r eligible based on patient's age to complete this topic Rotavirus Vaccines Aged Out No longer eligible based on patient's age to complete this topic Procedures Procedure Name Priority Date/Time Associated Diagnosis Comments SED RATE BY MODIFIED RENÉERGREN Routine 10/16/2024 6:20 PM EST LACTIC ACID Routine 10/16/2024 6:20 PM EST LIPASE Routine 10/16/2024 6:20 PM EST C-REACTIVE PROTEIN Routine 10/16/2024 6: 20 PM EST COMPREHENSIVE METABOLIC PANEL Routine 10/16/2024 6:20 PM EST CBC WITH AUTO DIFFERENTIAL Routine 10/16/2024 6:20 PM EST MR FOOT W AND WO CONTRAST LEFT STAT 10/14/2024 2:44 PM EST Wound of left foot C-REACTIVE PROTEIN [...] coma, without long-term current use of insulin (CMS/HCC) ZZZ HISTORICAL HEPATITIS C AB W/REFL TO HCV RNA, QN, PCR Routine 05/24/2022 11:27 AM EDT HIV 1/2 ANTIGEN/ANTIBODY, FOURTH GENERATION W/RFL Routine 05/24/2022 11:27 AM EDT HM COLONOSCOPY Routine 12/28/2013 from Last 3 Months or Most Recently Relevant to Health Maintenance Results * (ABNORMAL) CBC auto differential (10/16/2024 6:20 PM EST) Only the most recent of2 resultswithin the time period is included. White Blood Count 4.7(L) 4.8 - 10.8 X10*3/uL [facility] Red Blood Count 4.68 4.60 - 5.80 X10*6/uL [facility] Hemoglobin 13.0(L) 14.0 - 18.0 g/dl [facility] Hematocrit 39.0(L) 42.0 - 52.0 % [facility] Mean Corpuscular Volume 83.3 80.0 - 98.0 fL [facility] Mean Corpuscular Hemoglobin 27.8 27.0 - 33.0 pg [facility] Mean Corpuscular HGB Conc 33.3 31.0 - 36.0 g/dl [facility] Red Cell Distribution Width 12.1 11.0 - 16.0 % [facility] Platelet Count 233 160 - 400 X10*3/uL [facility] Mean Platelet Volume 9.1(L) 9.4 - 12.4 fL [facility] Neutrophils Percent Auto 70.8 45 - 73 % [facility] Imm Gran Pct Auto 0.2 0.0 - 0.4 % [facility] Lymphocytes Percent Auto 19.7(L) 20 - 40 % [facility] Monocytes Percent Auto 7.0 2 - 11 % [facility] Eosinophils Percent Auto 2.1 0 - 4 % [facility] Basophils Percent Auto 0.2 0 - 2 % [facility] NRBC Pct Auto 0.0 0.0 - 0.2 /100WBC [facility] Neutrophils Absolute Auto 3.3 2.0 - 8.3 x10*3/uL [facility] Imm Gran Abs Auto 0.01 0.00 - 0.03 X10*3/uL [facility] Lymphocytes Absolute Auto 0.9(L) 1.2 - 4.9 X10*3/uL [facility] Monocytes Absolute Auto 0.3 0.1 - 1.2 X10*3/uL [facility] Eosinophils Absolute Auto 0.1 0.0 - 0.4 X10*3/uL [facility] Basophils Absolute Auto 0.0 0.0 - 0.2 X10*3/uL [facility] NRBC Abs Auto 0.000 0.0 - 0.012 X10*3/uL [facility] 10/16/2024 6:20 PM EST 10/16/2024 6:27 PM EST Generic External Data Provider LAB BLOOD ORDERAB LES Final Result Performing Organization Address [facility] de Phone Number [facility] [address] [place] [phone] * (ABNORMAL) Sed Rate by Modified Tommieren (10/16/2024 6:20 PM EST) Only the most recent of2 resultswithin the time period is included. Erythrocyte Sedimentation Rate 54(H) 0 - 15 MM/HR [facility] Comment:Patients with polycy themia and many hemoglobin abnormalitiesmay have depressed sed rates whereas patients with anemiamay have elevated sed rates. 10/16/2024 6:20 PM EST 10/16/2024 6:27 PM EST Generic External Data Provider LAB BLOOD ORDERAB LES Final Result Performing Organization Address [facility] Co de Phone Number [facility] [address] [place] [address] [phone] * (ABNORMAL) C-reactive Protein (10/16/2024 6:20 PM EST) Only the most recent of2 resultswithin the time period is included. C Reactive Protein 1.74(H) < or = 0.50 mg/dL [facility] 10/16/2024 6:20 PM EST 10/16/2024 6:27 PM EST us Generic External Data Provider LAB BLOOD ORDERAB LES Final Result Performing Organization Address [facility]/ZIP Co de Phone Number [facility] [address] [place] [phone] * Lipase (10/16/2024 6:20 PM EST) Lipase 25 8 - 78 U/L [facility] 10/16/2024 6:20 PM EST 10/16/2024 6:27 PM EST us Generic External Data Provider LAB BLOOD ORDERAB LES Final Result Performing Organization Address [facility] Co de Phone Number [facility] [address] [place] [phone] * Lactic Acid (10/16/2024 6:20 PM EST) Pathologist [facility] Lactic Acid 1.0 0.5 - 2.0 mmol/L [facility] 10/16/2024 6:20 PM EST 10/16/2024 6:27 PM EST Generic External Data Provider LAB BLOOD ORDERAB LES Final Result Performing Organization Address [facility] Co de Phone Number [facility] [address] [place] [phone] * (ABNORMAL) Comprehensive Metabolic Panel (10/16/2024 6:20 PM EST) Only the most recent of2 resultswithin the time period is included. Sodium 136 135 - 145 mmol/L [facility] Potassium 4.0 3.3 - 5.1 mmol/L [facility] Chloride 100 96 - 108 mmol/L [facility] Carbon Dioxide 28 22 - 29 mmol/L [facility] Anion Gap 12 12 - 20 [facility] Urea Nitrogen (BUN) 14 9 - 16 mg/dL [facility] Creatinine, Serum 1.24 0.5 - 1.4 mg/dL [facility] Creatinine Clr Calc Pharmacy 63.5 [facility] Comment:eGFR (calculated fro m the MDRD study equation) and eCrCl(calculated from the Cockcroft-Gault equation) are based ondifferent parameters and may not yield comparable results.If eCrCl result is absurd, please check patient'sheight/weight. Estimated Glomerular Filt Rate 59 [facility] Comment:Chronic Kidney Disea se: Estimated GFR < 60 mL/min/1.23h0Ipqjyh Kidney Disease: Estimated GFR < 15 mL/min/1.73m2 Glucose 248(H) 60 - 115 mg/dL [facility] Calcium 10.0 8.4 - 10.2 mg/dL [facility] Bilirubin, Total 0.3 0.0 - 1.0 mg/dL [facility] Aspartate Amino Transferase 21 5 - 37 U/L [facility] Alanine Aminotransferase 16 0 - 40 U/L [facility] Total Protein 8.8(H) 6.5 - 8.0 g/dL [facility] Albumin Level 4.4 3.5 - 5.0 g/dL [facility] Alkaline Phosphatase 78 39 - 117 U/L [facility] 10/16/2024 6:20 PM EST 10/16/2024 6:27 PM EST us Generic External Data Provider LAB BLOOD ORDERAB LES Final Result Performing Organization Address City/State/[facility] Co de Phone Number [facility] [address] [place] [address] [phone] * MR Foot w and w/o Contrast Left (10/14/2024 2:44 PM EST) Anatomical Region Laterality Modality Lower Extremities, Foot Left Magnetic Resonance 10/14/2024 2:44 PM EST Narrative 10/14/2024 4:35 PM EST ? [facility] ?[address] ?[place] [address] ? Magnetic Resonance Report ? Signed ? Patient: Octavio Hardin,Andrea ?MR#: [id number] ?? [id number] ? : 1960 ?Acct:[id number] ? Age/Sex: 63 / M ?ADM Date: 10/14/24 ? Loc: HO.MRI ? Attending Dr: Maritza Alfonso LEAD INSTALLER ? Ordering Physician: Maritza Alfonso LEAD INSTALLER ?? Date of Service: 10/14/24 ?? Procedure(s): MR foot LT wo/w con ?? Accession Number(s): [id number] ? cc: Maritza Alfonso LEAD INSTALLER ? EXAMINATION: ?? MR FOOT WITHOUT AND [...] ? Signed By: ?<Electronically signed by Khai Moran, MD in OV> ?10/14/24 1632 ? DD/ 1444 ? TD/TT: 10/14/24 1545 ? Welder Experimental: ? Procedure Note Kiel Pierce - 10/14/[address] [address] Magnetic Resonance Report Signed Patient: Néstor Chamorro LMR#: [id number] : 1Acct:[id number] Age/Sex: 63 / MADM Date: 10/14/24 Loc: HO.MRI Attending Dr: Maritza Alfonso LEAD INSTALLER Ordering Physician: Maritza Alfonso Date of Service: 10/14/24 Procedure(s): MR malcolm LT wo/w con Accession Number(s): [id number] cc: Maritza Alfonso LEAD INSTALLER EXAMINATION: MR FOOT WITHOUT AND WITH CONTRAST, [...] by: Khai Moran MD 10/14/2024 04:32 PM EST Dictated By: Khai Moran MD Signed By: <Electronically signed by Khai Moran MD in OV> 10/14/24 1632 DD/ 1444 TD/TT: 10/14/24 1545 Welder Experimental: [facility] LEAD INSTALLER IMG MRI PROCEDURES Final Resu lt * Albumin, Random Urine W/Creatinine (10/08/2024 9:55 AM EST) Creatinine, Urine 98.17 mg/dL [facility] Microalbumin Urine 20.0 mg/L [facility] Microalbum Creatinine Ratio Ur 20.3 <30 ug/mg cr [facility] Comment:Albumin/Creatinine R atio Reference Ranges: Normal: < 30 ug/mg creatinine Microalbuminuria: 30 - 300 ug/mg creatinineClinical Albuminuria: > 300 ug/mg creatinine Urine 10/08/2024 9:55 AM EST 10/08/2024 10:32 AM EST [facility] URINE ORDERABLES Final Re sult [facility] [address] [place] [phone] * Lipid Panel, Standard (10/08/2024 9:55 AM EST) Triglycerides 51 <150 mg/dL [facility] Comment:Desirable Triglyceri de: less than 150 mg/dLBorderline High Triglyceride 150-199 mg/dLHigh Triglyceride: 200-499 mg/dLVery High Triglyceride: greater than or equal to 5OO mg/dL Cholesterol 153 <200 mg/dL [facility] Comment:Desirable Cholestero l: less than 200 mg/dLBorderline High Cholesterol: 200-239 mg/dLHigh Cholesterol: greater than 239 mg/dL LDL Cholesterol Calculated 91 <100 mg/dL [facility] Comment:Desirable LDL: less than 100 mg/dLNear Optimal/Above Optimal LDL: 110- 129 mg/dLBorderline High LDL: 130-159 mg/dLHigh LDL: 160-189 mg/dLVery High LDL: greater than or equal to 190 mg/dL HDL Cholesterol 52 >40 mg/dL [facility] Comment:Desirable HDL: great er than 40 mg/dL Note: This HDL assay may give artificially low results in patients with liver disease. Blood Venous blood specimen / Unknown 10/08/2024 9:55 AM EST 10/08/2024 9:55 AM EST [facility] BLOOD ORDERABLES Final Re sult [facility] [address] [place] [phone] * (ABNORMAL) POCT HGB A1C (10/07/2024 11:04 AM EST) Hemoglobin A1C 8.5(A) 4.0 - 6.0 % Blood 10/07/2024 11:0 4 AM EST [facility] POINT OF CARE TEST ENTER/EDIT ORDERABLES Final Result * POCT Glucose (10/07/2024 11:04 AM EST) Glucose Blood, POC 200 60 - 200 mg/dL Blood Capillary blood specimen / Unknown 10/07/2024 11:04 AM EST [facility] POINT OF CARE TEST ENTER/EDIT ORDERABLES Final Result * XR Foot 3+ Views Left (08/13/2024 11:46 AM EST) Anatomical Region Laterality Modality Lower Extremities, Foot Left Radiogra phic Imaging 08/13/2024 11:4 6 AM EST Narrative 10/02/2024 9:19 AM EST ?[facility] ?[address] ?[place] [address] ?XRay Report ? Signed ? Patient: Octavio Hardin,Andrea ?MR#: [id number] ?? [id number] ? : 1960 ?Acct:[id number] ? Age/Sex: 63 / M ?ADM Date: 08/13/24 ? Loc: HO.HHCX ? Attending Dr: Catarina Samayoa MD ? Ordering Physician: Catarina Samayoa MD ?? Date of Service: 08/13/24 ?? Procedure(s): XR foot LT min 3V ?? Accession Number(s): [id number] ? cc: Catarina Samayoa MD; [facility] ? EXAMINATION: ?? XR FOOT LEFT [...] EST ?? RP ? Dictated By: ?Sam Gileltte MD ? Signed By: ?<Electronically signed by Sam Gillette MD in OV> ?10/02/24 0916 ? DD/DT: 08/13/ 1146 ? TD/TT: 08/13/24 1148 ? Welder Experimental: SR ? Procedure Note Stan, Image - 10/02/2024 [facility] [address] [facility] [place] [address] XRay Report Signed Patient: Néstor Chamorro LMR#: [id number] : 1Acct:[id number] Age/Sex: 63 / MADM Date: 08/13/24 Loc: HO.HHCX Attending Dr: Catarina Samayoa MD Ordering Physician: Catarina Samayoa MD Date of Service: 08/13/24 Procedure(s): XR foot LT min 3V Accession Number(s): [id number] cc: Catarina Samayoa MD; [facility] EXAMINATION: XR FOOT LEFT CLINICAL [...] 10/02/24 0916 DD/ 1146 TD/TT: 08/13/24 1148 Welder Experimental: Catarina Samayoa MD IMG XR PROCEDURES Final Re sult * Referral to Optometry (07/08/2024) [facility] OUTPATIENT REFERRAL ORDERABLE S Final Result * [...] a test for HCV RNA (test code 89223) is suggested. ?? For additional information please refer to http://[employer]/faq/KTZ90m3 (This link is being provided for informational/ educational purposes only.) ?? 05/24/2022 11:2 7 AM EDT [facility] HISTORICAL/NON ORDERABLE LABS Final Result [facility] [address] * HIV 1/2 ANTIGEN/ANTIBODY,FOURTH GENERATION W/RFL [...] ? For additional information please refer to http://[employer]/faq/QAD940 (This link is being provided for informational/ educational purposes only.) ? The performance of this assay has not been clinically validated in patients less than 2 years old. ?? 05/24/2022 11:2 7 AM EDT [facility] LEAD INSTALLER LAB BLOOD ORDERABLES Final Re sult [facility] [address] * Colonoscopy (12/28/2013) Pathologist [facility] Colonoscopy performed Historical Provider MD HEALTH MAINTENANCE Final Result from Last 3 Months or Most Recently Relevant to Health [place] [id number] [facility] [address] , [place] [address] , [place] [address] Care Teams Freight Tallier Relationship Specialty Start Date End Date Maritza Alfonso FNP [address] [place] [address] [place] [address] PCP - General Family Medicine 05/24/22
--- OUTSIDE RECORDS SUMMARY | 2024-10-16 21:24 | XMS_ITS | Encounter Summary ---
Author Organization [employer] Address [address] [place] [address] Care Team Providers Care Investigations Chief Name Role Phone [facility] Primary Care Provider [phone] Encounter Details Date Type Department Care Team ([facility] st Contact Info) Description 07/29/2023 Orders Only [facility] [address] [place], [place] [phone] [facility] [address] [place] [address] Neoplasm of uncertain behavior (Primary Dx) Social [...] 9:45 AM EST Office Visit [facility] [address] [place] [address] Maritza Alfonso FNP [address] [place] [address] documented as of this encounter Visit Diagnoses Diagnosis 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
--- OUTSIDE RECORDS SUMMARY | 2024-10-16 21:24 | XMS_ITS | Clinical Summary ---
Author Organization [facility], Address [address] [place] [address] [place] [phone] Phone Care Team Providers Care Parimutuel Cashier Name Role Phone [facility] Primary Care Provider [phone] Allergies Active Allergy Reactions Criticality Noted Date [...] Visit [facility], [address] [place] [phone] Mick Badillo MD [address] [facility] [facility] [place] [phone] Health Maintenance Due Date Last Done Comments [...] Name Priority Date/Time Associated Diagnosis Comments LAB MEDICAL OFFICE REP Routine 01/29/2018 12:00 AM EDT from Last 3 Months or Most Recently Relevant to Health Maintenance Results * Lab [employer] Truing Inspector (01/29/2018 12:00 AM EDT) Hemoglobin A1C 7.8 % [facility] 01/29/2018 us [facility]version [facility] [id number] LICITED RESULTS Final Result [facility] from Last 3 Months or Most Recently Relevant to Health Maintenance Insurance [place] Care Teams Parimutuel Cashier Relationship Specialty Start Date End Date [facility] [address] [place] [address] PCP - General 06/26/22
--- OUTSIDE RECORDS SUMMARY | 2024-10-16 21:24 | XMS_ITS | Encounter Summary ---
Author Organization [employer] Address [address] [facility] 7t [place] [address] Care Team Providers Care Web Communications Specialist Name Role Phone Maritza Alfonso [facility] Primary Care Provider [phone] Reason for Referral * Consultation (Routine) - Authorized Specialty Diagnoses / Procedures Referred By Guanakito caro Referred To Contact Wound Care Diagnoses Wound of left foot Maritza Alfonso [facility] [address] [place] [address] Phone: tel: fax: [facility] [address] [place] [address] Phone: tel: fax: Referral ID Status Reason Start Date Expiration Date Visits Requested Visits Authorized [id number] Authorized Specialty Services Required 10/07/2024 10/07/2025 1 1 * Imaging (STAT) - Canceled Specialty Diagnoses / Procedures Referred By Guanakito caro Referred To Contact Radiology Diagnoses Wound of left foot Procedures Mr Foot w/o Contrast Left Maritza Alfonso [facility] [address] [place] [address] Phone: tel: fax: [facility] [address] [place], [place] Phone: tel: fax: Referral ID Status Reason Start Date Expiration Date V isits Requested Visits Authorized [id number] Canceled 10/07/2024 10/07/2025 1 1 Reason for Visit * Reason Comments follow up foot ulcer Encounter Details Date Type Department Care Team (Late st Contact Info) Description 10/07/2024 11:00 AM EST Office Visit [facility] [address] [place] [address] Maritza Alfonso FNP [address] [place] [address] Type 2 diabetes mellitus with hyperglycemia, without long-term current use of insulin ([facility]) (Primary Dx); Wound of left foot Social [...] documented in this encounter Progress Notes * [facility], [facility] - 10/07/2024 11:00 AM EST SUBJECTIVE: [...] this time. He was previously followed by [facility] but was lost to follow up since -04/2024. At walk in [place] He was prescribed 2 weeks of Augmentin and referred back to podiatry. X-ray at this time with concern for possible occult osteomyelitis. Today patient denies fever or chills discharge or increased swelling he has an appointment with podiatry scheduled for October. Social History Social History Narrative Current living environment: Has [employer]. Lives alone Children: 2 Activities: Enjoys walking, [...] hyperglycemia, without long-term current use of insulin ([facility]) (Primary) Lab Results Component Value Date HGBA1C [...] facility-administered medications on file prior to visit. Kazakh Translation: Provided by [facility] staff member KATTY Sahu documented in this encounter Plan of Treatment Upcoming Encounters Date Type Department Care Team (Late st Contact Info) Description 10/26/2024 9:45 AM EST Office Visit [facility] [address] [place] [address] Maritza Alfonso FNP [address] [place] [address] Scheduled Orders Name Type Priority Associated Diagnoses [...] hyperglycemia, without long-term current use of insulin ([facility]) CBC WITH AUTO DIFFERENTIAL Routine 10/08/2024 9:55 AM EST Wound of left foot SED RATE BY MODIFIED WESTERGREN Routine 10/08/2024 9:55 AM EST Wound of left foot C-REACTIVE PROTEIN Routine 10/08/2024 9: 55 AM EST Wound of left foot LIPID PANEL, STANDARD Routine 10/08/2024 9:55 AM EST Type 2 diabetes mellitus with hyperglycemia, without long-term current use of insulin ([facility]) COMPREHENSIVE METABOLIC PANEL Routine 10/08/2024 9:55 AM EST Type 2 diabetes mellitus with hyperglycemia, without long-term current use of insulin ([facility]) POCT GLYCATED HEMOGLOBIN, TOTAL Routine 10/07/2024 11:04 AM EST Type 2 diabetes mellitus with hyperglycemia, without long-term current use of insulin ([facility]) POCT GLUCOSE Routine 10/07/2024 11:04 AM EST Type 2 diabetes mellitus with hyperglycemia, without long-term current use of insulin ([facility]) documented in this encounter Results * (ABNORMAL) C-reactive Protein (10/08/2024 9:55 AM EST) C Reactive Protein 2.03(H) < or = 0.50 mg/dL [facility] Blood Venous blood specimen / Unknown 10/08/2024 9:55 AM EST 10/08/2024 9:55 AM EST [facility] LAB BLOOD ORDERABLES Final Re sult [facility] [address] [place] [phone] * (ABNORMAL) Sed Rate by Modified Westergren (10/08/2024 9:55 AM EST) [facility] Erythrocyte Sedimentation Rate 38(H) 0 - 15 MM/HR [facility] Comment:Patients with polycy themia and many hemoglobin abnormalitiesmay have depressed sed rates whereas patients with anemiamay have elevated sed rates. Blood Venous blood specimen / Unknown 10/08/2024 9:55 AM EST 10/08/2024 9:55 AM EST [facility] LAB BLOOD ORDERABLES Final Re sult [facility] [address] [place] [phone] * (ABNORMAL) CBC auto differential (10/08/2024 9:55 AM EST) [facility] White Blood Count 3.6(L) 4.8 - 10.8 X10*3/uL [facility] Red Blood Count 4.71 4.60 - 5.80 X10*6/uL [facility] Hemoglobin 13.1(L) 14.0 - 18.0 g/dl [facility] Hematocrit 40.7(L) 42.0 - 52.0 % [facility] Mean Corpuscular Volume 86.4 80.0 - 98.0 fL [facility] Mean Corpuscular Hemoglobin 27.8 27.0 - 33.0 pg [facility] Mean Corpuscular HGB Conc 32.2 31.0 - 36.0 g/dl [facility] Red Cell Distribution Width 12.4 11.0 - 16.0 % [facility] Platelet Count 210 160 - 400 X10*3/uL [facility] Mean Platelet Volume 9.1(L) 9.4 - 12.4 fL [facility] Neutrophils Percent Auto 65.7 45 - 73 % [facility] Imm Gran Pct Auto 0.3 0.0 - 0.4 % [facility] Lymphocytes Percent Auto 19.9(L) 20 - 40 % [facility] Monocytes Percent Auto 11.6(H) 2 - 11 % [facility] Eosinophils Percent Auto 2.2 0 - 4 % [facility] Basophils Percent Auto 0.3 0 - 2 % [facility] NRBC Pct Auto 0.0 0.0 - 0.2 /100WBC [facility] Neutrophils Absolute Auto 2.4 2.0 - 8.3 x10*3/uL [facility] Imm Gran Abs Auto 0.01 0.00 - 0.03 X10*3/uL [facility] Lymphocytes Absolute Auto 0.7(L) 1.2 - 4.9 X10*3/uL [facility] Monocytes Absolute Auto 0.4 0.1 - 1.2 X10*3/uL [facility] Eosinophils Absolute Auto 0.1 0.0 - 0.4 X10*3/uL [facility] Basophils Absolute Auto 0.0 0.0 - 0.2 X10*3/uL [facility] NRBC Abs Auto 0.000 0.0 - 0.012 X10*3/uL [facility] Blood Venous blood specimen / Unknown 10/08/2024 9:55 AM EST 10/08/2024 9:55 AM EST [facility] [employer] LAB BLOOD ORDERABLES Final Re sult [facility] [address] [place] [phone] * Lipid Panel, Standard (10/08/2024 9:55 AM EST) Triglycerides 51 <150 mg/dL [facility] Comment:Desirable Triglyceri de: less than 150 mg/dLBorderline High Triglyceride 150-199 mg/dLHigh Triglyceride: 200-499 mg/dLVery High Triglyceride: greater than or equal to 5OO mg/dL Cholesterol 153 <200 mg/dL [facility] Comment:Desirable Cholestero l: less than 200 mg/dLBorderline High Cholesterol: 200-239 mg/dLHigh Cholesterol: greater than 239 mg/dL LDL Cholesterol Calculated 91 <100 mg/dL [facility] Comment:Desirable LDL: less than 100 mg/dLNear Optimal/Above Optimal LDL: 110- 129 mg/dLBorderline High LDL: 130-159 mg/dLHigh LDL: 160-189 mg/dLVery High LDL: greater than or equal to 190 mg/dL HDL Cholesterol 52 >40 mg/dL [facility] Comment:Desirable HDL: great er than 40 mg/dL Note: This HDL assay may give artificially low results in patients with liver disease. Blood Venous blood specimen / Unknown 10/08/2024 9:55 AM EST 10/08/2024 9:55 AM EST [facility] [facility] LAB BLOOD ORDERABLES Final Re sult [facility] [address] [place] [phone] * (ABNORMAL) Comprehensive Metabolic Panel (10/08/2024 9:55 AM EST) Sodium 136 135 - 145 mmol/L [facility] Potassium 4.2 3.3 - 5.1 mmol/L [facility] Chloride 101 96 - 108 mmol/L [facility] Carbon Dioxide 26 22 - 29 mmol/L [facility] Anion Gap 13 12 - 20 [facility] Urea Nitrogen (BUN) 11 9 - 16 mg/dL [facility] Creatinine, Serum 0.92 0.5 - 1.4 mg/dL [facility] Estimated Glomerular Filt Rate >60 [facility] Comment:Chronic Kidney Disea se: Estimated GFR < 60 mL/min/[id number] Kidney Disease: Estimated GFR < 15 mL/min/1.73m2 Glucose 167(H) 60 - 115 mg/dL [facility] Calcium 10.1 8.4 - 10.2 mg/dL [facility] Bilirubin, Total 0.5 0.0 - 1.0 mg/dL [facility] Aspartate Amino Transferase 25 5 - 37 U/L [facility] Alanine Aminotransferase 20 0 - 40 U/L [facility] Total Protein 8.8(H) 6.5 - 8.0 g/dL [facility] Albumin Level 4.5 3.5 - 5.0 g/dL [facility] Alkaline Phosphatase 72 39 - 117 U/L [facility] Blood Venous blood specimen / Unknown 10/08/2024 9:55 AM EST 10/08/2024 9:55 AM EST [facility] LAB BLOOD ORDERABLES Final Re sult Performing Organization Address [facility] Co de Phone Number [facility] [address] [place] [phone] * Albumin, Random Urine W/Creatinine (10/08/2024 9:55 AM EST) Creatinine, Urine 98.17 mg/dL [facility] Microalbumin Urine 20.0 mg/L [facility] Microalbum Creatinine Ratio Ur 20.3 <30 ug/mg cr [facility] Comment:Albumin/Creatinine R atio Reference Ranges: Normal: < 30 ug/mg creatinine Microalbuminuria: 30 - 300 ug/mg creatinineClinical Albuminuria: > 300 ug/mg creatinine Urine 10/08/2024 9:55 AM EST 10/08/2024 10:32 AM EST [facility] URINE ORDERABLES Final Re sult Performing Organization Address [facility] Co de Phone Number [facility] [address] [place] [phone] * (ABNORMAL) POCT HGB A1C (10/07/2024 11:04 AM EST) Hemoglobin A1C 8.5(A) 4.0 - 6.0 % Blood 10/07/2024 11:0 4 AM EST [facility] POINT OF CARE TEST ENTER/EDIT ORDERABLES Final Result * POCT Glucose (10/07/2024 11:04 AM EST) Glucose Blood, POC 200 60 - 200 mg/dL Blood Capillary blood specimen / Unknown 10/07/2024 11:04 AM EST Result [facility] POINT OF CARE TEST ENTER/EDIT ORDERABLES Final Result documented in this encounter Visit Diagnoses Diagnosis Type 2 diabetes mellitus with hyperglycemia, without long-term current use of insulin ([facility])- Primary Wound of left foot documented in this encounter Additional Health Concerns Assessment Noted Time PHQ-9 Depression Total Score: 0 01/15/20 24 9:49 AM EDT documented as of this encounter Care Teams Web Communications Specialist Relationship Specialty Start Date End Date [facility] [address] [place] [phone] PCP - General Family Medicine 05/24/22 documented as of this encounter
--- OUTSIDE RECORDS SUMMARY | 2024-10-16 21:24 | XMS_ITS | Encounter Summary ---
Author Organization [employer] Address [address] [facility] 7[address] [place] [address] Care Team Providers Care Turkey Roll Maker Name Role Phone [facility] Primary Care Provider [phone] Reason for Visit * Reason Onset Date Comments MRI FOOT ORDER 10/07/2024 Encounter Details Date Type Department Care Team ([facility] st Contact Info) Description 10/07/2024 Telephone [facility] [address] [place] [address] [facility] [address] [place] [address] MRI FOOT ORDER Social History Tobacco Use [...] 10/07/2024 4:11 PM EST Incoming fax from [facility], Order needs to be with & without contrast documented in this encounter Plan of Treatment Upcoming Encounters Date Type Department Care Team (Late st Contact Info) Description 10/26/2024 9:45 AM EST Office Visit [facility] [address] [place] [address] Maritza Alfonso FNP [address] [place] [address] documented as of this encounter Visit Diagnoses Not on filedocumented in this encounter Additional Health Concerns Assessment Noted Time PHQ-9 Depression Total Score: 0 01/15/20 9:49 AM EDT documented as of this encounter Care Teams Turkey Roll Maker Relationship Specialty Start Date End Date Maritza Alfonso FNP [address] [place] [address] PCP - General Family Medicine 05/24/22 documented as of this encounter
--- OUTSIDE RECORDS SUMMARY | 2024-10-16 21:24 | XMS_ITS | Encounter Summary ---
Author Organization [employer] Address [address] [address] [address] 7[address] [place] [address] Care Team Providers Care Icu Registered Nurse Name Role Phone [facility] Primary Care Provider [phone] Reason for Visit * Reason Comments Med Refill Encounter Details Date Type Department Care Team ([facility] st Contact Info) Description 09/28/2024 Refill [facility] [address] [place], [place] [phone] [facility] [address] [place], [place] [phone] Social History Tobacco Use Types Packs/Day Years [...] Description 10/26/2024 9:45 AM EST Office Visit [facility] [address] [place] [address] KadenMaritza moore FNP [address] [place] [address] documented as of this encounter Visit Diagnoses Not on filedocumented in this encounter Additional Health Concerns Assessment Noted Time PHQ-9 Depression Total Score: 0 01/15/20 9:49 AM EDT documented as of this encounter Care Teams Icu Registered Nurse Relationship Specialty Start Date End Date Maritza Alfonso FNP [address] [place] [address] PCP - General Family Medicine 05/24/22 documented as of this encounter
--- OUTSIDE RECORDS SUMMARY | 2024-10-16 21:24 | XMS_ITS | Encounter Summary ---
Author Organization [employer] Address [address] [place] [address] Care Team Providers Care Non Destructive Testing Inspector Name Role Phone [facility] Primary Care Provider [phone] Encounter Details Date Type Department Care Team [...] Description 10/26/2024 9:45 AM EST Office Visit [facility] [address] [place] [address] Maritza Alfonso FNP [address] [place] [address] documented as of this encounter Visit Diagnoses Not on filedocumented in this encounter Additional Health Concerns Assessment Noted Time PHQ-9 Depression Total Score: 0 01/15/20 24 9:49 AM EDT documented as of this encounter Care Teams Non Destructive Testing Inspector Relationship Specialty Start Date End Date Maritza Alfonso FNP [address] [place] [address] PCP - General Family Medicine 05/24/22 documented as of this encounter
--- OUTSIDE RECORDS SUMMARY | 2024-10-16 21:24 | XMS_ITS | Encounter Summary ---
Author Organization [employer] Address [address] [facility] [address] [place] [address] Care Team Providers Care Putty Tinter Maker Name Role Phone [facility] Primary Care Provider [phone] Reason for Visit * Reason Onset Date Comments Results 10/02/2024 Encounter Details Date Type Department Care Team ([facility] st Contact Info) Description 10/02/2024 Telephone [facility] [address] [place], [place] [phone] Rosa Solano RN [address] [place] [address] Results Social History Tobacco Use Types Packs/Day [...] Description 10/26/2024 9:45 AM EST Office Visit [facility] [address] [place] [address] Moline Maritza COMMERCIAL AGENT [address] [place] [address] documented as of this encounter Visit Diagnoses Not on filedocumented in this encounter Additional Health Concerns Assessment Noted Time PHQ-9 Depression Total Score: 0 01/15/20 9:49 AM EDT documented as of this encounter Care Teams Putty Tinter Maker Relationship Specialty Start Date End Date Kaden IVONNE Salas [address] [place] [address] PCP - General Family Medicine 05/24/22 documented as of this encounter
--- NOTE | 2024-10-16 21:30 | P.HPHOSP_ITS ---
History of Present Illness Date of Service: 10/16/24 Chief Complaint: Abnormal MRI This is a 63-year-old male with pertinent history of CAD, yxt-btdmtfq-rkzvpfhnr diabetes mellitus, mixed hyperlipidemia, hypertension who presents to the emergency department for management of osteomyelitis. Patient has had a nonhealing wound along the medial aspect of the left foot since August of 2023. He states that over the last 1 week it started draining clear fluid and it looked worse than before. He went to his PCP and got MRI done which showed osteomyelitis and he was sent to the ER for IV antibiotics. Patient denies fever, chills, chest pain, palpitations, shortness of breath, abdominal pain, changes in urinary or bowel habits. In the emergency department, patient was given IV vancomycin and IV Zosyn. Review of Systems 2 Constitutional: Constitutional: Reports no additional constitutional complaints Cardiovascular: Cardiovascular: Reports no additional cardiovascular complaints Respiratory: Respiratory: Reports no additional respiratory complaints Gastrointestinal: Gastrointestinal: Reports no additional gastrointestinal complaints Genitourinary: Genitourinary: Reports no additional male genitourinary complaints [facility] Medical History Leucopenia HTN (hypertension) High cholesterol Diabetes Other and unspecified hyperlipidemia Type 2 diabetes mellitus with unspecified complications Atherosclerotic cardiovascular disease Family History Father Liver disease Mother Diabetes Heart attack Sister Diabetes Kidney disease Stomach cancer Surgical History History of incision and drainage (~12/2017) Social History Household Members: None Housing: Apartment Are you a primary clinical care manager to a significant other at home: No Do you presently have visiting nurse or other home services: No Alcohol intake: former Patient Tobacco Use Status: Never used Tobacco Smoked in Last 30 Days: No Use of substances other than those prescribed or required for medical reasons: No Advance Directives: Yes Advance Directives on File: Yes Advance Directives Date on File: 04/05/22 Nutrition Risks: No Nutritional Risk service: No Current occupational status: disabled Meds Allergies Allergy/AdvReac Type Severity Reaction Status Date / Time piperacillin [From ZOSYN] Allergy Mild RASH Verified 10/16/24 17:40 tazobactam [From ZOSYN] Allergy Mild RASH Verified 10/16/24 17:40 vancomycin Allergy Itching Verified 10/16/24 17:40 Home Medications ?Medication ?Instructions ?Recorded ?Confirmed ?Last Taken ?Type empagliflozin 25 mg tablet 1 tab PO DAILY 03/31/22 03/03/24 Unknown History (Jardiance) aspirin 81 mg tablet,delayed 81 mg PO QAM 02/07/23 03/03/24 Unknown History release cholecalciferol (vitamin D3) 50 50 mcg PO QAM 02/07/23 03/03/24 Unknown History mcg (2,000 unit) capsule metformin 500 mg tablet,extended 1,000 mg PO BID 02/07/23 03/03/24 Unknown History release 24 hr metoprolol succinate 50 mg 50 mg PO QAM 02/07/23 03/03/24 Unknown History tablet,extended release 24 hr Physical Exam 2 Vital Signs and Narrative: Vital Signs: Last Vital Signs Temp 98.6 F 10/16/24 17:37 Pulse 93 10/16/24 17:37 Resp 16 10/16/24 17:37 BP 154/66 H 10/16/24 17:37 Pulse Ox 98 10/16/24 17:37 O2 Del Method Room Air 10/16/24 17:37 BMI result Body Mass Index 22.0 Middle-aged male lying in bed in no distress Neck supple, no JVD Regular rate and rhythm, S1-S2 heard Regular breath sounds bilaterally, no wheezing or crackles appreciated Abdomen soft nontender, no guarding, no rigidity Patient is awake, alert and oriented to self, place, time and person ; no focal motor deficit Psych: Normal mood Left foot with nonhealing wound as pictured below Results Labs 10/16/24 18:20 10/16/24 18:20 Labs: Laboratory Results - last 24 hr 10/16/24 18:20 MCV 83.3 MCH 27.8 MCHC 33.3 RDW 12.1 Plt Count 233 MPV 9.1 L Immature Gran % (Auto) 0.2 Neut % (Auto) 70.8 Lymph % (Auto) 19.7 L [place]field % (Auto) 7.0 Eos % (Auto) 2.1 Baso % (Auto) 0.2 Lymph # (Auto) 0.9 L [place] # (Auto) 0.3 Eos # (Auto) 0.1 Baso # (Auto) 0.0 Abs Immat Gran (auto) 0.01 Absolute Neuts (auto) 3.3 Absolute Nucleated RBC 0.000 Nucleated RBC % (auto) 0.0 ESR 54 H Anion Gap 12 Estim Creat Clear Calc 63.5 Estimated GFR 59 Random Glucose 248 H Lactic Acid 1.0 Calcium 10.0 Total Bilirubin 0.3 AST 21 ALT 16 Alkaline Phosphatase 78 C-Reactive Protein 1.74 H Total Protein 8.8 H Albumin 4.4 Lipase 25 Assessment and Plan (1) Foot osteomyelitis, left: Status: Acute Plan This is a 63-year-old male with pertinent history of CAD, ihw-peyqqcl-wqnezwmlx diabetes mellitus, mixed hyperlipidemia who presents to the emergency department for management of osteomyelitis. #. Acute left foot osteomyelitis: Will admit patient with IV vancomycin and Zosyn. No sepsis. Consulting Wound Care and Infectious Disease #. Coronary artery disease: On statin and aspirin #. Gwm-tacipgt-tvvssgsci diabetes mellitus with hyperglycemia: Initiating Accu-Cheks with sliding scale insulin #. Hypertension: Continue home antihypertensives Med rec pending DVT prophylaxis: Lovenox Full code Admit as inpatient and will require two night minimum hospital stay for IV antibiotics (as above), which is not possible in a lesser acute setting. Quality Stroke Does the patient have a stroke diagnosis?: No VTE Prior VTE?: No VTE Risk Level:: Medical - moderate - high VTE Device Contraindication: Treatment Not Indicated VTE Drug Contraindication: N/A - Med Ordered
[2024-10-16] MEDS: Enoxaparin Sodium 40 MG/0.4 ML SYRINGE SUBCUT (22:06)
[2024-10-16] MEDS: Piperacillin Sodium/Tazobactam 4.5 GM in 0.9 % Sodium Chloride 100 ML IV (22:06)
[2024-10-16] MEDS: Insulin Regular, Human 100 UNIT/ML 10 ML VIAL IVPUSH (22:08)
[2024-10-16 22:11] VITALS: BP 125/60; PULSE 63; RESP 18; TEMP 36.9; O2SAT 98
[2024-10-16] MEDS: vancomycin HCL 1,000 MG, vancomycin HCL 750 MG in 0.9 % Sodium Chloride 500 ML 267.5 MG IV (22:49)
--- NOTE | 2024-10-16 22:58 | PC.NURSE ---
Addendum entered by Tita Briceno 10/16/24 23:14: POC checked, 62, given juice and sandwich, pt felt better afterward, no Benadryl needed per MD Original Note: pt reports feeling dizzy after zosyn administered. MD aware, allergy reports rash only so MD okayed admin. my medicated per OCT for reaction
--- NOTE | 2024-10-16 22:58 | PHA.PROG ---
Admission Date/Time: October 16, 2024 21:27 Indication: bone and joint Weight in k.7 kg Serum Creatinine - Last 168 Hours 10/16/24 18:20 Creatinine 1.24 Estimated CrCl and GFR - Last 168 Hours 10/16/24 18:20 Estim Creat Clear Calc 63.5 Estimated GFR 59 Vancomycin Loading Dose: 1750 Current Vancomycin Dosing Regimen: 1500 q24 Vancomycin Monitoring using AUC goal of 400 - 600 range with trough as surrogate marker: 546 Date and Time for next Vancomycin Level to be drawn: 01/15 @ 2100 Pharmacist Comments on Vancomycin Plan: Vancomycin dosing will take advantage of [employer]io as a clinical decision support tool that uses Bayesian modeling to calculate individual patient's pharmacokinetic parameters and forecast the patient's drug concentration time course with the target goal AUC 24 range of 400 - 600 mg/L/hr.
[2024-10-16 23:07] LABS: Glucose, Whole Blood 62 mg/dL (60-115)
[2024-10-17 00:08] LABS: Glucose, Whole Blood 166 mg/dL (60-115)
[2024-10-17] MEDS: 0.9 % Sodium Chloride Flush 3 ML SYRINGE IVFLUSH ×3 (00:08→16:14)
[2024-10-17] MEDS: Piperacillin Sodium/Tazobactam 4.5 GM in 0.9 % Sodium Chloride 100 ML IV ×4 (03:54→21:54)
--- NOTE | 2024-10-17 03:57 | PC.NURSE ---
Pt medicated per [facility] Plan of care ongoing.
[2024-10-17 06:22] VITALS: BP 121/68; PULSE 57; RESP 14; TEMP 36.6; O2SAT 98
[2024-10-17 06:34] LABS: MANUAL DIFF FLAG NO
[2024-10-17 06:39] LABS: Basophils Percent Auto 0.4 % (0-2); Eosinophils Absolute Auto 0.1 X10*3/uL (0.0-0.4); Eosinophils Percent Auto 1.3 % (0-4); Hematocrit 39.1 % (42.0-52.0); Hemoglobin 12.6 g/dl (14.0-18.0); Imm Gran Abs Auto 0.02 X10*3/uL (0.00-0.03); Imm Gran Pct Auto 0.4 % (0.0-0.4); Lymphocytes Absolute Auto 0.4 X10*3/uL (1.2-4.9); Lymphocytes Percent Auto 9.9 % (20-40); Mean Corpuscular HGB Conc 32.2 g/dl (31.0-36.0); Mean Corpuscular Hemoglobin 27.5 pg (27.0-33.0); Mean Corpuscular Volume 85.4 fL (80.0-98.0); Mean Platelet Volume 9.2 fL (9.4-12.4); Monocytes Absolute Auto 0.4 X10*3/uL (0.1-1.2); Monocytes Percent Auto 8.5 % (2-11); Neutrophils Absolute Auto 3.5 x10*3/uL (2.0-8.3); Neutrophils Percent Auto 79.5 % (45-73); Platelet Count 200 X10*3/uL (160-400); Red Blood Count 4.58 X10*6/uL (4.60-5.80); Red Cell Distribution Width 12.1 % (11.0-16.0); White Blood Count 4.5 X10*3/uL (4.8-10.8)
[2024-10-17 06:55] LABS: Anion Gap 11 (12-20); Blood Urea Nitrogen 11 mg/dL (9-16); Calcium 9.5 mg/dL (8.4-10.2); Carbon Dioxide 27 mmol/L (22-29); Chloride 105 mmol/L (96-108); Creatinine Clr Calc Pharmacy 78.8; Estimated Glomerular Filt Rate > 60; Glucose Random 223 mg/dL (60-115); Potassium 4.6 mmol/L (3.3-5.1); Sodium 138 mmol/L (135-145)
[2024-10-17 07:26] VITALS: BP 128/63; PULSE 64; RESP 16; O2SAT 100
[2024-10-17 07:31] LABS: Glucose, Whole Blood 188 mg/dL (60-115)
[2024-10-17] MEDS: Insulin Lispro 100 UNIT/ML 3 ML VIAL SUBCUT ×2 (07:39→18:26)
--- NOTE | 2024-10-17 10:38 | PHA.MEDREC ---
Addendum entered by Agnes Lopez RPh 10/17/24 11:17: MED REC REVIEWED BY [facility] Original Note: Pharmacy Consult ? Medication Reconciliation Pharmacy has completed the medication reconciliation. Spoke with patient to confirm medications through an healthcare interpreter. He reports he has not taken any of his meds in >1 month. He has a recent rx for Jardiance but says he rarely takes that and does not know the dose. He also rarely takes ezetimibe, left these off of med list. Atorvastatin and metformin last filled 05/20/24. He thinks the metformin is causing his neuropathy. He is not on Trulicity or insulin.
[2024-10-17 11:41] LABS: Glucose, Whole Blood 117 mg/dL (60-115)
[2024-10-17 12:06] VITALS: BP 137/72; PULSE 55; RESP 18; TEMP 36.7; O2SAT 98
--- NOTE | 2024-10-17 12:21 | HO.PM.IMPN ---
Subjective Subjective Date of Service: 10/17/24 Review of Systems Follow up cellulitis No pain Physical Exam Vital Signs: Vital Signs: Last Vital Signs Temp 98.1 F 10/17/24 12:06 Pulse 55 10/17/24 12:06 Resp 18 10/17/24 12:06 BP 137/72 10/17/24 12:06 Pulse Ox 98 10/17/24 12:06 O2 Del Method Room Air 10/17/24 12:06 BMI result Body Mass Index 22.0 Appearing in no acute distress lung sounds are clear to auscultation heart regular rate rhythm, clear S1, S2 positive bowel sounds, abdomen is soft, nontender neuro patient is alert x3, no focal deficits Objective Data Active Medications Acetaminophen (Acetaminophen 325 Mg Tablet) 650 mg PO Q6H PRN PRN Reason: Pain, Mild 1-3,fever,headache Calcium Carbonate (Calcium Carbonate 750 Mg Tab.Chew) 750 mg PO Q4H PRN PRN Reason: Heartburn Dextrose (Dextrose 50 % 25 Gm/50 Ml Syringe) 25 gm IVPUSH Q15M PRN; Protocol PRN Reason: per Hypoglycemia Standing Ord. Enoxaparin Sodium (Enoxaparin Sodium 40 Mg/0.4 Ml Syringe) 40 mg SUBCUT Q24H [facility] Last Admin: 10/16/24 22:06 Dose: 40 mg Documented By: RANJAN Glucose (Glucose Gel 15 Gm Gel..Gram.) 15 gm PO Q15M PRN; Protocol PRN Reason: per Hypoglycemia Standing Ord. Piperacillin Sod/Tazobactam (Sod 4.5 gm/ Sodium Chloride) 100 mls @ 200 mls/hr IV Q6H [facility] Last Admin: 10/17/24 10:30 Dose: 100 mls/hr Documented By: SILVESTRE Vancomycin HCl 1,500 mg/ (Sodium Chloride) 500 mls @ 333.333 mls/hr IV Q24H [facility] Insulin Human Lispro (Insulin Lispro 100 Unit/Ml 3 Ml Vial) 0 unit SUBCUT QIDACHS [facility]; Protocol Last Admin: 10/17/24 11:43 Dose: Not Given Documented By: SILVESTRE Non-Admin Reason: No Insulin Coverage Magnesium Hydroxide (Milk Of Magnesia 30 Ml Oral.Susp) 30 ml PO DAILY PRN PRN Reason: Constipation Melatonin (Melatonin 3 Mg Tablet) 6 mg PO BEDTIME PRN PRN Reason: Insomnia Ondansetron HCl (Ondansetron Hcl 4 Mg/2 Ml Vial) 4 mg IVPUSH Q8H PRN PRN Reason: Nausea and Vomiting Pharmacy Consult (Consult Rx Vancomycin Dosing) 1 each MISCELLANE DAILY PRN PRN Reason: Consult order Sodium Chloride (0.9 % Sodium Chloride Flush 3 Ml Syringe) 3 ml IVFLUSH QSHIFT [facility] Last Admin: 10/17/24 09:56 Dose: 3 ml Documented By: SILVESTRE Labs 10/17/24 06:05 10/17/24 06:05 Labs: Laboratory Results - last 24 hr 10/16/24 10/16/24 10/16/24 18:20 23:03 23:50 MCV 83.3 MCH 27.8 MCHC 33.3 RDW 12.1 Plt Count 233 MPV 9.1 L Immature Gran % (Auto) 0.2 Neut % (Auto) 70.8 Lymph % (Auto) 19.7 L Karnes % (Auto) 7.0 Eos % (Auto) 2.1 Baso % (Auto) 0.2 Lymph # (Auto) 0.9 L Karnes # (Auto) 0.3 Eos # (Auto) 0.1 Baso # (Auto) 0.0 Abs Immat Gran (auto) 0.01 Absolute Neuts (auto) 3.3 Absolute Nucleated RBC 0.000 Nucleated RBC % (auto) 0.0 ESR 54 H Anion Gap 12 Estim Creat Clear Calc 63.5 Estimated GFR 59 POC Glucose 62 166 H Random Glucose 248 H Lactic Acid 1.0 Calcium 10.0 Total Bilirubin 0.3 AST 21 ALT 16 Alkaline Phosphatase 78 C-Reactive Protein 1.74 H Total Protein 8.8 H Albumin 4.4 Lipase 25 10/17/24 10/17/24 10/17/24 06:05 07:25 11:38 MCV 85.4 MCH 27.5 MCHC 32.2 RDW 12.1 Plt Count 200 MPV 9.2 L Immature Gran % (Auto) 0.4 Neut % (Auto) 79.5 H Lymph % (Auto) 9.9 L Karnes % (Auto) 8.5 Eos % (Auto) 1.3 Baso % (Auto) 0.4 Lymph # (Auto) 0.4 L Karnes # (Auto) 0.4 Eos # (Auto) 0.1 Baso # (Auto) 0.0 Abs Immat Gran (auto) 0.02 Absolute Neuts (auto) 3.5 Absolute Nucleated RBC 0.000 Nucleated RBC % (auto) 0.0 ESR Anion Gap 11 L Estim Creat Clear Calc 78.8 Estimated GFR > 60 POC Glucose 188 H 117 H Random Glucose 223 H Lactic Acid Calcium 9.5 Total Bilirubin AST ALT Alkaline Phosphatase C-Reactive Protein Total Protein Albumin Lipase Assessment and Plan (1) Osteomyelitis of great toe of left foot: Status: Acute Plan 63-year-old male with pertinent history of CAD, rtv-dpclnhp-lmynjjuyo diabetes mellitus, mixed hyperlipidemia who presents to the emergency department for management of osteomyelitis. Acute left foot osteomyelitis MRI showing multiple areas of osteo to left foot IV vancomycin and Zosyn. No sepsis. will likely need PICC line for abx Consulting Wound Care and Infectious Disease Coronary artery disease On statin and aspirin Cwu-pzubwte-cebldakdo diabetes mellitus with hyperglycemia Initiating Accu-Cheks with sliding scale insulin Hypertension Continue home antihypertensives DVT prophylaxis: Lovenox Full code Quality Stroke Does the patient have a stroke diagnosis?: No VTE Prior VTE?: No VTE Risk Level:: Medical - moderate - high VTE Device Contraindication: Treatment Not Indicated VTE Drug Contraindication: N/A - Med Ordered
--- NOTE | 2024-10-17 13:59 | MHC.CM.PN ---
PT LIVES ALONE IS INDEPEDENT HAS NO SERVICES HAS OWN RIDE HOME DC PLAN HOME NO SERVICES
[2024-10-17 16:51] LABS: Glucose, Whole Blood 190 mg/dL (60-115)
--- NOTE | 2024-10-17 18:07 | PC.NURSE ---
pt has not yet gotten insulin as we continue to wait on his DM dinner tray, kitchen has been called twice for it
--- NOTE | 2024-10-17 18:18 | PC.NURSE ---
this nurse has sent the tech to the kitchen to obtain the patient dinner tray as they still have not delivered a tray for him, awaiting his return prior to giving insulin
[2024-10-17 21:07] LABS: Glucose, Whole Blood 101 mg/dL (60-115)
[2024-10-17 21:51] VITALS: BP 124/58; PULSE 59; RESP 12; TEMP 36.2; O2SAT 96
[2024-10-17] MEDS: Atorvastatin Calcium 80 MG TABLET PO (21:51)
[2024-10-17] MEDS: Enoxaparin Sodium 40 MG/0.4 ML SYRINGE SUBCUT (21:51)
[2024-10-17] MEDS: vancomycin HCL 1,500 MG in 0.9 % Sodium Chloride 500 ML 333.33 MG IV (23:09)
[2024-10-18] MEDS: Piperacillin Sodium/Tazobactam 4.5 GM in 0.9 % Sodium Chloride 100 ML IV ×4 (03:10→20:57)
[2024-10-18 06:00] VITALS: BP 130/65; PULSE 66; RESP 14; TEMP 36.6; O2SAT 98
[2024-10-18 07:38] LABS: Glucose, Whole Blood 132 mg/dL (60-115)
[2024-10-18 08:02] LABS: Creatinine Clr Calc Pharmacy 78.8; Estimated Glomerular Filt Rate > 60
[2024-10-18] MEDS: 0.9 % Sodium Chloride Flush 3 ML SYRINGE IVFLUSH ×3 (08:53→20:58)
--- NOTE | 2024-10-18 09:58 | PC.NURSE ---
Pt ambulating to/from BR with steady gait; wound to L foot clean and dry with no drainage at this time; pt requesting case mgt, stating he wants to be DC'd home with home infusion services for antibiotics, states he's had these services before; case worker messaged
--- NOTE | 2024-10-18 10:17 | MHC.EDTECH ---
AM care done ,bed change RN aware
--- NOTE | 2024-10-18 11:33 | HO.PM.IMPN ---
Subjective Subjective Date of Service: 10/18/24 Review of Systems Follow up cellulitis No pain Physical Exam Vital Signs: Vital Signs: Last Vital Signs Temp 97.8 F 10/18/24 06:00 Pulse 66 10/18/24 06:00 Resp 14 10/18/24 06:00 BP 130/65 10/18/24 06:00 Pulse Ox 98 10/18/24 06:00 O2 Del Method Room Air 10/18/24 06:00 BMI result Body Mass Index 22.0 Appearing in no acute distress lung sounds are clear to auscultation heart regular rate rhythm, clear S1, S2 positive bowel sounds, abdomen is soft, nontender neuro patient is alert x3, no focal deficits Objective Data Active Medications Acetaminophen (Acetaminophen 325 Mg Tablet) 650 mg PO Q6H PRN PRN Reason: Pain, Mild 1-3,fever,headache Atorvastatin Calcium (Atorvastatin Calcium 80 Mg Tablet) 80 mg PO BEDTIME [facility] Last Admin: 10/17/24 21:51 Dose: 80 mg Documented By: GER Calcium Carbonate (Calcium Carbonate 750 Mg Tab.Chew) 750 mg PO Q4H PRN PRN Reason: Heartburn Dextrose (Dextrose 50 % 25 Gm/50 Ml Syringe) 25 gm IVPUSH Q15M PRN; Protocol PRN Reason: per Hypoglycemia Standing Ord. Enoxaparin Sodium (Enoxaparin Sodium 40 Mg/0.4 Ml Syringe) 40 mg SUBCUT Q24H [facility] Last Admin: 10/17/24 21:51 Dose: 40 mg Documented By: GER Glucose (Glucose Gel 15 Gm Gel..Gram.) 15 gm PO Q15M PRN; Protocol PRN Reason: per Hypoglycemia Standing Ord. Piperacillin Sod/Tazobactam (Sod 4.5 gm/ Sodium Chloride) 100 mls @ 200 mls/hr IV Q6H [facility] Last Infusion: 10/18/24 09:57 Dose: Infused Documented By: SAV Vancomycin HCl 1,500 mg/ (Sodium Chloride) 500 mls @ 333.333 mls/hr IV Q24H [facility] Last Infusion: 10/18/24 00:43 Dose: Infused Documented By: GER Insulin Human Lispro (Insulin Lispro 100 Unit/Ml 3 Ml Vial) 0 unit SUBCUT QIDACHS [facility]; Protocol Last Admin: 10/18/24 07:54 Dose: Not Given Documented By: SAV Non-Admin Reason: No Insulin Coverage Isosorbide Mononitrate (Isosorbide Mononitrate 30 Mg Tab.Er.24h) 30 mg PO DAILY [facility]; Protocol Last Admin: 10/18/24 08:51 Dose: Not Given Documented By: SAV Non-Admin Reason: Patient Refused Magnesium Hydroxide (Milk Of Magnesia 30 Ml Oral.Susp) 30 ml PO DAILY PRN PRN Reason: Constipation Melatonin (Melatonin 3 Mg Tablet) 6 mg PO BEDTIME PRN PRN Reason: Insomnia Ondansetron HCl (Ondansetron Hcl 4 Mg/2 Ml Vial) 4 mg IVPUSH Q8H PRN PRN Reason: Nausea and Vomiting Pharmacy Consult (Consult Rx Vancomycin Dosing) 1 each MISCELLANE DAILY PRN PRN Reason: Consult order Sodium Chloride (0.9 % Sodium Chloride Flush 3 Ml Syringe) 3 ml IVFLUSH QSHIFT [facility] Last Admin: 10/18/24 08:53 Dose: 3 ml Documented By: SAV Labs 10/17/24 06:05 10/18/24 07:39 Labs: Laboratory Results - last 24 hr 10/17/24 10/17/24 10/17/24 11:38 16:47 21:03 Estim Creat Clear Calc Estimated GFR POC Glucose 117 H 190 H 101 10/18/24 10/18/24 07:34 07:39 Estim Creat Clear Calc 78.8 Estimated GFR > 60 POC Glucose 132 H Microbiology Microbiology Results: Microbiology 10/16/24 18:20 Blood Culture - Preliminary Blood - Venous No growth after 24 hours. 10/16/24 18:20 Blood Culture - Preliminary Blood - Venous No growth after 24 hours. Assessment and Plan (1) Osteomyelitis of great toe of left foot: Status: Acute Plan 63-year-old male with pertinent history of CAD, hwe-lccuyqn-rwmcxwyfy diabetes mellitus, mixed hyperlipidemia who presents to the emergency department for management of osteomyelitis. Acute left foot osteomyelitis MRI showing multiple areas of osteo to left foot IV vancomycin and Zosyn. No sepsis. will likely need PICC line for abx Consulting Wound Care and Infectious Disease Coronary artery disease On statin and aspirin Orr-etipwly-qddvfmbtr diabetes mellitus with hyperglycemia Accu-Cheks with sliding scale insulin Hypertension Continue home antihypertensives DVT prophylaxis: Lovenox Full code Quality Stroke Does the patient have a stroke diagnosis?: No VTE Prior VTE?: No VTE Risk Level:: Medical - moderate - high VTE Device Contraindication: Treatment Not Indicated VTE Drug Contraindication: N/A - Med Ordered
--- NOTE | 2024-10-18 11:42 | PC.NURSE ---
It is noted that pt has listed allergies to Vancomycin and Zosyn; pt received Zosyn this morning and on previous shift with no adverse reactions or allergic reactions observed or reported; AGNIESZKA [place] on [place] has messaged pt's provider to review allergies with pt
[2024-10-18] MEDS: Insulin Lispro 100 UNIT/ML 3 ML VIAL SUBCUT ×3 (11:52→20:57)
[2024-10-18 11:53] LABS: Glucose, Whole Blood 164 mg/dL (60-115)
[2024-10-18 12:50] VITALS: BP 157/76; PULSE 74; RESP 18; TEMP 36.6; O2SAT 99
[2024-10-18 13:20] VITALS: BMI 21.8
[2024-10-18 15:26] VITALS: BP 136/78; PULSE 86; RESP 18; TEMP 36.6; O2SAT 98
[2024-10-18 16:16] LABS: Glucose, Whole Blood 158 mg/dL (60-115)
[2024-10-18 20:17] LABS: Glucose, Whole Blood 153 mg/dL (60-115)
[2024-10-18] MEDS: Atorvastatin Calcium 80 MG TABLET PO (20:57)
[2024-10-18 21:13] LABS: Vancomycin Trough 6.8 mcg/mL (10.0-20.0)
[2024-10-18] MEDS: Enoxaparin Sodium 40 MG/0.4 ML SYRINGE SUBCUT (21:20)
[2024-10-18] MEDS: vancomycin HCL 1,250 MG in 0.9 % Sodium Chloride 250 ML 166.67 MG IV (22:00)
[2024-10-18 23:49] VITALS: BP 138/76; PULSE 65; RESP 16; TEMP 36.1; O2SAT 99
[2024-10-19] MEDS: Piperacillin Sodium/Tazobactam 4.5 GM in 0.9 % Sodium Chloride 100 ML IV ×4 (02:56→21:08)
[2024-10-19 07:40] LABS: Glucose, Whole Blood 144 mg/dL (60-115)
[2024-10-19 08:00] VITALS: BP 134/70; PULSE 75; RESP 18; TEMP 36.2; O2SAT 96
[2024-10-19] MEDS: 0.9 % Sodium Chloride Flush 3 ML SYRINGE IVFLUSH ×3 (08:38→21:08)
[2024-10-19] MEDS: Isosorbide Mononitrate 30 MG TAB.ER.24H PO (08:38)
[2024-10-19 08:41] LABS: Vancomycin Random 15.4 mcg/mL (15-20)
[2024-10-19 08:43] LABS: Creatinine Clr Calc Pharmacy 70.1; Estimated Glomerular Filt Rate > 60
--- NOTE | 2024-10-19 08:54 | HO.PM.IMPN ---
Subjective Subjective Date of Service: 10/19/24 Review of Systems Follow up cellulitis No pain Physical Exam Vital Signs: Vital Signs: Last Vital Signs Temp 97.2 F 10/19/24 08:00 Pulse 75 10/19/24 08:00 Resp 18 10/19/24 08:00 BP 134/70 10/19/24 08:00 Pulse Ox 96 10/19/24 08:00 O2 Del Method Room Air 10/19/24 08:00 BMI result Body Mass Index 21.8 Appearing in no acute distress lung sounds are clear to auscultation heart regular rate rhythm, clear S1, S2 positive bowel sounds, abdomen is soft, nontender neuro patient is alert x3, no focal deficits Objective Data Active Medications Acetaminophen (Acetaminophen 325 Mg Tablet) 650 mg PO Q6H PRN PRN Reason: Pain, Mild 1-3,fever,headache Atorvastatin Calcium (Atorvastatin Calcium 80 Mg Tablet) 80 mg PO BEDTIME [facility] Last Admin: 10/18/24 20:57 Dose: 80 mg Documented By: ALANA Calcium Carbonate (Calcium Carbonate 750 Mg Tab.Chew) 750 mg PO Q4H PRN PRN Reason: Heartburn Dextrose (Dextrose 50 % 25 Gm/50 Ml Syringe) 25 gm IVPUSH Q15M PRN; Protocol PRN Reason: per Hypoglycemia Standing Ord. Enoxaparin Sodium (Enoxaparin Sodium 40 Mg/0.4 Ml Syringe) 40 mg SUBCUT Q24H [facility] Last Admin: 10/18/24 21:20 Dose: 40 mg Documented By: ALANA Glucose (Glucose Gel 15 Gm Gel..Gram.) 15 gm PO Q15M PRN; Protocol PRN Reason: per Hypoglycemia Standing Ord. Piperacillin Sod/Tazobactam (Sod 4.5 gm/ Sodium Chloride) 100 mls @ 200 mls/hr IV Q6H [facility] Last Admin: 10/19/24 08:39 Dose: 200 mls/hr Documented By: YVON Vancomycin HCl 1,250 mg/ (Sodium Chloride) 250 mls @ 166.667 mls/hr IV Q12H [facility] Last Infusion: 10/18/24 23:32 Dose: Infused Documented By: ALANA Insulin Human Lispro (Insulin Lispro 100 Unit/Ml 3 Ml Vial) 0 unit SUBCUT QIDACHS [facility]; Protocol Last Admin: 10/19/24 07:41 Dose: Not Given Documented By: YVON Non-Admin Reason: No Insulin Coverage Isosorbide Mononitrate (Isosorbide Mononitrate 30 Mg Tab.Er.24h) 30 mg PO DAILY [facility]; Protocol Last Admin: 10/19/24 08:38 Dose: 30 mg Documented By: YVON Magnesium Hydroxide (Milk Of Magnesia 30 Ml Oral.Susp) 30 ml PO DAILY PRN PRN Reason: Constipation Melatonin (Melatonin 3 Mg Tablet) 6 mg PO BEDTIME PRN PRN Reason: Insomnia Ondansetron HCl (Ondansetron Hcl 4 Mg/2 Ml Vial) 4 mg IVPUSH Q8H PRN PRN Reason: Nausea and Vomiting Pharmacy Consult (Consult Rx Vancomycin Dosing) 1 each MISCELLANE DAILY PRN PRN Reason: Consult order Sodium Chloride (0.9 % Sodium Chloride Flush 3 Ml Syringe) 3 ml IVFLUSH QSHIFT [facility] Last Admin: 10/19/24 08:38 Dose: 3 ml Documented By: YVON Labs 10/17/24 06:05 10/19/24 07:55 Labs: Laboratory Results - last 24 hr 10/18/24 10/18/24 10/18/24 11:44 16:13 20:08 Estim Creat Clear Calc Estimated GFR POC Glucose 164 H 158 H 153 H Vancomycin Trough Random Vancomycin 10/18/24 10/19/24 10/19/24 20:46 07:37 07:55 Estim Creat Clear Calc 70.1 Estimated GFR > 60 POC Glucose 144 H Vancomycin Trough 6.8 L Random Vancomycin 15.4 Microbiology Microbiology Results: Microbiology 10/16/24 18:20 Blood Culture - Preliminary Blood - Venous No growth after 48 hours. 10/16/24 18:20 Blood Culture - Preliminary Blood - Venous No growth after 48 hours. Assessment and Plan (1) Osteomyelitis of great toe of left foot: Status: Acute Plan 63-year-old male with pertinent history of CAD, dqw-taajzek-pdpqijzwp diabetes mellitus, mixed hyperlipidemia who presents to the emergency department for management of osteomyelitis. Acute left foot osteomyelitis MRI showing multiple areas of osteo to left foot IV vancomycin and Zosyn. No sepsis. waiting for PICC line placement Wound Care and Infectious Disease pending Coronary artery disease On statin and aspirin Xxw-cxablcf-snvmngyib diabetes mellitus with hyperglycemia Accu-Cheks with sliding scale insulin Hypertension Continue home antihypertensives DVT prophylaxis: Lovenox Full code Quality Stroke Does the patient have a stroke diagnosis?: No VTE Prior VTE?: No VTE Risk Level:: Medical - moderate - high VTE Device Contraindication: Treatment Not Indicated VTE Drug Contraindication: N/A - Med Ordered
--- NOTE | 2024-10-19 09:10 | HE.PHANOTE ---
RE: VANCO DOSING Trough came back as 15.4 and renal function has worsen. Dose is decreased to 1000 mg q12h. Next trough is scheduled for 10/20/24 @0800.
[2024-10-19 11:04] LABS: Glucose, Whole Blood 204 mg/dL (60-115)
[2024-10-19] MEDS: vancomycin HCL 1,000 MG in 0.9 % Sodium Chloride 250 ML 270 MG IV ×2 (11:06→21:42)
[2024-10-19] MEDS: Insulin Lispro 100 UNIT/ML 3 ML VIAL SUBCUT ×2 (12:06→21:08)
[2024-10-19 15:26] VITALS: BP 113/64; PULSE 67; RESP 18; TEMP 36.2; O2SAT 96
[2024-10-19 16:08] LABS: Glucose, Whole Blood 93 mg/dL (60-115)
[2024-10-19 19:24] VITALS: BP 117/62; PULSE 59; RESP 18; TEMP 36.2; O2SAT 97
[2024-10-19 19:31] LABS: Glucose, Whole Blood 182 mg/dL (60-115)
[2024-10-19] MEDS: Atorvastatin Calcium 80 MG TABLET PO (21:08)
[2024-10-19] MEDS: Enoxaparin Sodium 40 MG/0.4 ML SYRINGE SUBCUT (21:09)
[2024-10-19 23:44] VITALS: BP 120/67; PULSE 77; RESP 18; TEMP 36.7; O2SAT 98
[2024-10-20] MEDS: Piperacillin Sodium/Tazobactam 4.5 GM in 0.9 % Sodium Chloride 100 ML IV ×2 (04:55→07:51)
[2024-10-20 07:11] VITALS: BP 116/69; PULSE 72; RESP 18; TEMP 36.7; O2SAT 96
[2024-10-20 07:16] LABS: Glucose, Whole Blood 126 mg/dL (60-115)
[2024-10-20 07:52] VITALS: BP 116/69
[2024-10-20] MEDS: Isosorbide Mononitrate 30 MG TAB.ER.24H PO (07:52)
[2024-10-20] MEDS: 0.9 % Sodium Chloride Flush 3 ML SYRINGE IVFLUSH (07:53)
[2024-10-20 08:31] LABS: Creatinine Clr Calc Pharmacy 73.4; Estimated Glomerular Filt Rate > 60
[2024-10-20] MEDS: vancomycin HCL 1,000 MG in 0.9 % Sodium Chloride 250 ML 270 MG IV (09:52)
--- NOTE | 2024-10-20 11:23 | HO.PM.IMPN ---
Subjective Subjective Date of Service: 10/20/24 Review of Systems Follow up cellulitis No pain Physical Exam Vital Signs: Vital Signs: Last Vital Signs Temp 98.0 F 10/20/24 07:11 Pulse 72 10/20/24 07:11 Resp 18 10/20/24 07:11 BP 116/69 10/20/24 07:52 Pulse Ox 96 10/20/24 07:11 O2 Del Method Room Air 10/20/24 07:11 BMI result Body Mass Index 21.8 Appearing in no acute distress lung sounds are clear to auscultation heart regular rate rhythm, clear S1, S2 positive bowel sounds, abdomen is soft, nontender neuro patient is alert x3, no focal deficits Objective Data Active Medications Acetaminophen (Acetaminophen 325 Mg Tablet) 650 mg PO Q6H PRN PRN Reason: Pain, Mild 1-3,fever,headache Atorvastatin Calcium (Atorvastatin Calcium 80 Mg Tablet) 80 mg PO BEDTIME [facility] Last Admin: 10/19/24 21:08 Dose: 80 mg Documented By: NILESH Calcium Carbonate (Calcium Carbonate 750 Mg Tab.Chew) 750 mg PO Q4H PRN PRN Reason: Heartburn Dextrose (Dextrose 50 % 25 Gm/50 Ml Syringe) 25 gm IVPUSH Q15M PRN; Protocol PRN Reason: per Hypoglycemia Standing Ord. Enoxaparin Sodium (Enoxaparin Sodium 40 Mg/0.4 Ml Syringe) 40 mg SUBCUT Q24H [facility] Last Admin: 10/19/24 21:09 Dose: 40 mg Documented By: NILESH Glucose (Glucose Gel 15 Gm Gel..Gram.) 15 gm PO Q15M PRN; Protocol PRN Reason: per Hypoglycemia Standing Ord. Piperacillin Sod/Tazobactam (Sod 4.5 gm/ Sodium Chloride) 100 mls @ 200 mls/hr IV Q6H [facility] Last Infusion: 10/20/24 08:28 Dose: Infused Documented By: YVON Vancomycin HCl 1,000 mg/ (Sodium Chloride) 270 mls @ 270 mls/hr IV Q12H [facility] Last Admin: 10/20/24 09:52 Dose: 270 mls/hr Documented By: YVON Insulin Human Lispro (Insulin Lispro 100 Unit/Ml 3 Ml Vial) 0 unit SUBCUT QIDACHS [facility]; Protocol Last Admin: 10/20/24 07:38 Dose: Not Given Documented By: YVON Non-Admin Reason: No Insulin Coverage Isosorbide Mononitrate (Isosorbide Mononitrate 30 Mg Tab.Er.24h) 30 mg PO DAILY [facility]; Protocol Last Admin: 10/20/24 07:52 Dose: 30 mg Documented By: YVON Magnesium Hydroxide (Milk Of Magnesia 30 Ml Oral.Susp) 30 ml PO DAILY PRN PRN Reason: Constipation Melatonin (Melatonin 3 Mg Tablet) 6 mg PO BEDTIME PRN PRN Reason: Insomnia Ondansetron HCl (Ondansetron Hcl 4 Mg/2 Ml Vial) 4 mg IVPUSH Q8H PRN PRN Reason: Nausea and Vomiting Pharmacy Consult (Consult Rx Vancomycin Dosing) 1 each MISCELLANE DAILY PRN PRN Reason: Consult order Sodium Chloride (0.9 % Sodium Chloride Flush 3 Ml Syringe) 3 ml IVFLUSH QSHIFT [facility] Last Admin: 10/20/24 07:53 Dose: 3 ml Documented By: YVON Labs 10/17/24 06:05 10/20/24 07:59 Labs: Laboratory Results - last 24 hr 10/19/24 10/19/24 10/20/24 16:05 19:26 07:13 Estim Creat Clear Calc Estimated GFR POC Glucose 93 182 H 126 H Random Vancomycin 10/20/24 07:59 Estim Creat Clear Calc 73.4 Estimated GFR > 60 POC Glucose Random Vancomycin 15.0 Assessment and Plan (1) Osteomyelitis of great toe of left foot: Status: Acute Plan 63-year-old male with pertinent history of CAD, pjc-fkxoclk-trsymxxeq diabetes mellitus, mixed hyperlipidemia who presents to the emergency department for management of osteomyelitis. Acute left foot osteomyelitis MRI showing multiple areas of osteo to left foot IV vancomycin and Zosyn. No sepsis. waiting for PICC line placement Wound Care and Infectious Disease pending Coronary artery disease On statin and aspirin Are-ibxbyau-azlumqmrc diabetes mellitus with hyperglycemia Accu-Cheks with sliding scale insulin Hypertension Continue home antihypertensives DVT prophylaxis: Lovenox Full code Quality Stroke Does the patient have a stroke diagnosis?: No VTE Prior VTE?: No VTE Risk Level:: Medical - moderate - high VTE Device Contraindication: Treatment Not Indicated VTE Drug Contraindication: N/A - Med Ordered
[2024-10-20 11:26] LABS: Glucose, Whole Blood 160 mg/dL (60-115)
--- NOTE | 2024-10-20 13:40 | P.PICC_ITS ---
PICC Line Insertion [facility] Diagnosis: Osteomyelitis Indication: intermediate IV antibiotics Pertinent Labs: Reviewed Technique: Following informed consent including risks, benefits and alternatives and using sterile technique including cap and mask, sterile gown, glove and drape, the left arm was prepped and draped in the usual sterile fashion of full barrier technique with G. Following completion of Delmar Protocol the skin and soft tissues were anesthetized with 1% Lidocaine plain. Using ultrasound guidance, the left brachial vein access was obtained by Ana BELLA after two attempt by this RN. The patient jumped and access was lost.. Over an 0.018 wire through peel-away sheath, a 4 czech single lumen PASV PICC line was positioned. Catheter length is 41 cm internal length, the external length is at the 0cm external yarely, for a total trimmed length of 41 cm. The procedure was performed in S272. Tip verification was performed by Susi Smith with Sherlock 3CG. Tip located in SVC. Ultrasound was used to document vein patency and for needle entry. A formal ultrasound picture and cardiac rhythm strip was recorded. Vascular Application Security Engineer has released the line for use and it is currently dressed with a StatLock, Tegaderm, and CHG disc. Verification has been performed for blood return and line patency. Arm Circumference: 31 cm Equipment: [employer] PowerPICC SOLO Catheter with 3 CG Tip Catheter Type: 4 czech single lumen PASV PICC Lot #: [id number]
[2024-10-20] MEDS: Insulin Lispro 100 UNIT/ML 3 ML VIAL SUBCUT (13:53)
--- NOTE | 2024-10-20 14:04 | P.DS_ITS ---
DS: Providers Provider Date of Service: 10/20/24 Date of admission: 10/16/24 21:27 Date of discharge: 10/20/24 Primary care physician: IVONNE Sommers Consults: 10/16/24 22:07 Consult to Infectious Diseases Routine Consulting Provider: [facility] Reason for consultation: left foot osteomyelitis 10/18/24 13:25 Consult to Wound Care Routine Reason for consultation: left foot wound DS: Diagnosis Discharge Diagnosis (1) Osteomyelitis of great toe of left foot: Status: Acute DS: Summary Hospital Course Hospital Course: History and physical as per admitting provider. This is a 63-year-old male with pertinent history of CAD, tsr-bwynahk-pypakrclo diabetes mellitus, mixed hyperlipidemia, hypertension who presents to the emergency department for management of osteomyelitis. Patient has had a nonhealing wound along the medial aspect of the left foot since August of 2023. He states that over the last 1 week it started draining clear fluid and it looked worse than before. He went to his PCP and got MRI done which showed osteomyelitis and he was sent to the ER for IV antibiotics. Patient denies fever, chills, chest pain, palpitations, shortness of breath, abdominal pain, changes in urinary or bowel habits. In the emergency department, patient was given IV vancomycin and IV Zosyn. Acute left foot osteomyelitis. MRI showing multiple areas of osteo to left foot. IV vancomycin and Zosyn initially. No sepsis. Picc line placed> Daptomycin for 4 weeks. Coronary artery disease. On statin and aspirin Dgg-gahlooy-xfnvopzwe diabetes mellitus with hyperglycemia, continue home medications Hypertension. Continue home antihypertensives Time Attestation Discharge Coordination Time (in mins): 40 Quality: Safe Use of Opioids Does Pt have an Active Cancer Diagnosis on the Problem List?: No Quality: Stroke Does the patient have a stroke diagnosis?: No Physical Exam 2 Vital Signs: Vital Signs: Last Vital Signs Temp 98.0 F 10/20/24 07:11 Pulse 72 10/20/24 07:11 Resp 18 10/20/24 07:11 BP 116/69 10/20/24 07:52 Pulse Ox 96 10/20/24 07:11 O2 Del Method Room Air 10/20/24 07:11 BMI result Body Mass Index 21.8 Appearing in no acute distress head is normocephalic atraumatic eyes pupils are PERRLA sclera is anicteric mouth throat mucous membranes are intact and moist neck is supple no lymphadenopathy, no JVD noted lung sounds are clear to auscultation heart regular rate rhythm, clear S1, S2 positive bowel sounds, abdomen is soft, nontender neuro patient is alert x3, no focal deficits DS: Data Data Completed and Pending Completed studies during hospitalization [Text1]: Procedures Drainage of Right Foot Skin, External Approach (03/31/22) Insertion of Infusion Device into Superior Vena Cava, Percutaneous Approach (03/31/22) Ultrasonography of Superior Vena Cava, Guidance (03/31/22) Labs on day of discharge: Laboratory Results - last 24 hr 10/19/24 10/19/24 10/20/24 16:05 19:26 07:13 Creatinine Estim Creat Clear Calc Estimated GFR POC Glucose 93 182 H 126 H Random Vancomycin 10/20/24 10/20/24 07:59 11:22 Creatinine 1.06 Estim Creat Clear Calc 73.4 Estimated GFR > 60 POC Glucose 160 H Random Vancomycin 15.0 Preliminary micro results at discharge 10/16/24 18:20 Blood Culture - Preliminary Blood - Venous No growth after 48 hours. 10/16/24 18:20 Blood Culture - Preliminary Blood - Venous No growth after 48 hours. Discharge Plan Discharge Anticipated Discharge Date/Time: 10/20/24 14:01 Patient Disposition: Home Health Service Discharge Diagnosis: Osteomyelitis Referrals: [facility] [Other] - 1 Week Chetan MEYERS [Outside] - 1 Week DallasMaritza FNP [Primary Care Provider] - 1 Week Discharge Medications: New daptomycin 500 mg recon soln 437 mg IV Q24H Rx Instructions: IV push Continued aspirin 81 mg tablet,delayed release (DR/EC) 81 mg PO DAILY cholecalciferol (vitamin D3) 50 mcg (2,000 unit) capsule 50 mcg PO DAILY metformin 500 mg tablet extended release 24 hr 500 mg PO BID metoprolol succinate 50 mg tablet extended release 24 hr 50 mg PO DAILY isosorbide mononitrate 30 mg tablet extended release 24 hr 30 mg PO DAILY Held atorvastatin 80 mg tablet 80 mg PO BEDTIME Hold Instructions: while on antibiotic Discharge Orders: Discharge Order (Routine); Ordered 10/20/24 Ordered By: Debora Birch Diet: Advance to usual diet Activity on Discharge: As tolerated Stand Alone Forms: Patient Portal Discharge page Print Language: Azeri Activity Restrictions/Additional Instructions: Topical Wound Care Recommendations: Left Medial Foot - Cleanse with NS pat dry. apply skin prep. Cover wound bed with Durafiber AG, cover with dry gauze dressing change every other day. Recommend follow up out patient Wound Clinic at [address] [place] [id number] and to call for an appointment at time of discharge. [phone].? Care Plan Goals: Daptomycin via PICC line for osteomyelitis end date 11/13/2024. RN may remove PICC line after last dose. Health Concerns: Osteomyelitis Plan of Treatment: Follow-up with primary care provider as needed Take all medications as prescribed Assessment: See discharge summary Discharge Date/Time: 10/20/24 17:26
--- NOTE | 2024-10-20 14:15 | W.MHC.F2F ---
Service Date Service Date: 10/20/24 Encounter Date of encounter: 10/20/24 Reasons for Services Signs and symptoms assessed: Osteomyelitis Reason for penitentiary: administration of IV, SQ, or IM injection Homebound: Leaving the home is medically contraindicated at this time without the asist of a device and/or another person due th the listed conditions above and below. Reason homebound: weakness related to hospital stay Certification: Based on the above findings, I certify that this patient is confined to the home and needs intermittent penitentiary care, physical therapy and/or speech therapy, or continues to need occupational therapy. The patient is under my care, and I have initiated the establishment of the plan of care. The patient will be followed by a physician who will periodically review the plan of care. Time Spent With Patient Time: Total time managing care of this patient today ____ minutes.
--- NOTE | 2024-10-20 14:30 | HO.WOUND ---
Wound Consult: Initial 63yr old?Male admitted to [facility] on 10/16/24 21:27 - See progress notes and H&P for detailed history.? Wound consult placed for Left Foot wound.? Patient agreeable to assessment and photo documentation.? Left Medial Foot Etiology: ?Diabetic Wound Measurements: 1.2cm x 0.5cm x 0.2cm Wound Bed: red clean moist wound bed Drainage / Odor: malodor noted - de guzman small amount of drainage Edges: ? macerated and well defined Anahy wound: macerated and intact ? No Induration, Fluctuance or Warmth noted Pain: denies reports neuropathy - +PP noted Goals of Treatment: ? Wound clinic followup outpt and Durafiber AG for moisture management Recommendations: 1. Turn and Reposition every 2 hours and as needed for patient comfort.? Use pillows or wedges to support off loading positions. 2. Off Load all bony prominences with use of pillows and heel boots if needed.? Apply Preventative foams where needed. ? 3. Monitor for incontinence and moisture control, use barrier creams when needed for prevention and treatment. 4. Provide adequate and supplemental nutrition.? 5. Order or Continue low air loss mattress. 6. When applicable maintain blood glucose levels per Providers order. 7.Left Medial Foot - Cleanse with NS pat dry. apply skin prep. Cover wound bed with Durafiber AG, cover with dry gauze dressing change every other day. Recommend follow up out patient Wound Clinic at [address] [place] [phone] and to call for an appointment at time of discharge. [phone].? Re-consult wound care Nurse for wound deterioration or wound changes.
--- NOTE | 2024-10-20 14:59 | MHC.CM.PN ---
PT DCD HOME WITH IV DAPTO [facility]RU [facility] SON WILL TRANSPORT HOME
[2024-10-20] MEDS: DAPTOMYCIN IV (15:55)
[2024-10-20] MEDS: SODIUM CHLORIDE 0.9% IV (15:55)
[2024-10-20 16:00] VITALS: BP 130/68; PULSE 75; RESP 20; TEMP 37.2; O2SAT 99
[2024-10-20 16:38] LABS: Glucose, Whole Blood 151 mg/dL (60-115)
--- NOTE | 2024-10-20 17:21 | PC.NURSE ---
Pt given supplies for dressing changes at home. RUE picc line dressing CDI
--- NOTE | 2024-10-20 22:57 | W.PM.IDCN ---
History of Present Illness Data of Consult Service Date: 10/20/24 Requesting physician: Debora Birch Primary Care Provider: Maritza ClearmontIVONNE HPI Reason for consult: OM left foot He presents with nonhealing left foot ulcer. He has had wound since 08/2023.There was more concern about some drainage and he presents to PCP who was suspicious about OM and referred him to ER. He had MRI showed proximal first digit OM as well as suspected OM plantar left great toe. He has no fever or chills. He has had prior MSSA wound. Review of Systems Review of Systems: Yes all other systems are reviewed and are negative [facility] Past Medical History Medical History Leucopenia HTN (hypertension) High cholesterol Diabetes Other and unspecified hyperlipidemia Type 2 diabetes mellitus with unspecified complications Atherosclerotic cardiovascular disease Family History Family History Father Liver disease Mother Diabetes Heart attack Sister Diabetes Kidney disease Stomach cancer Surgical History Surgical History History of incision and drainage (~12/2017) Social History Social History Household Members: None Housing: Apartment Are you a primary director of career services to a significant other at home: No Do you presently have visiting nurse or other home services: No Alcohol intake: former Patient Tobacco Use Status: Never used Tobacco Advance Directives Date on File: 04/05/22 service: No Current occupational status: disabled Meds Allergies Allergy/AdvReac Type Severity Reaction Status Date / Time No Known Allergies Allergy Verified 10/18/24 13:10 Home Medications ?Medication ?Instructions ?Recorded ?Confirmed ?Last Taken ?Type aspirin 81 mg tablet,delayed 81 mg PO DAILY 02/07/23 10/17/24 Unknown History release cholecalciferol (vitamin D3) 50 50 mcg PO DAILY 02/07/23 10/17/24 Unknown History mcg (2,000 unit) capsule metformin 500 mg tablet,extended 500 mg PO BID 02/07/23 10/17/24 Unknown History release 24 hr metoprolol succinate 50 mg 50 mg PO DAILY 02/07/23 10/17/24 Unknown History tablet,extended release 24 hr atorvastatin 80 mg tablet 80 mg PO BEDTIME 10/17/24 10/17/24 Unknown History isosorbide mononitrate 30 mg 30 mg PO DAILY 10/17/24 10/17/24 Unknown History tablet,extended release 24 hr Physical Exam Vital Signs: Vital Signs: Last Vital Signs Temp 98.9 F 10/20/24 16:00 Pulse 75 10/20/24 16:00 Resp 20 10/20/24 16:00 BP 130/68 10/20/24 16:00 Pulse Ox 99 10/20/24 16:00 O2 Del Method Room Air 10/20/24 16:00 BMI result Body Mass Index 21.8 Const: General: cooperative HEENT: Head: Yes normal to inspection Face and sinus: Yes normal facial exam Mouth: Normal oral and palatal mucosa present Teeth and gingiva: dentition normal Eyes: General: appearance normal, both eyes and all related structures Pupils: Equal, round and reactive pupils present Resp: Effort & Inspection: normal respiratory effort Cardio: Rate: regular rate Rhythm: regular rhythm GI: Palpation (GI): Soft to palpation and nontender : General: Yes no CVA tenderness Back/Spine/Pelvis: Back: no CVA tenderness Skin: General skin exam: no rashes or lesions noted Neuro: General: moves all extremities Cranial nerves: Yes Equal, round and reactive pupils present Extrem: Other: wound .5cm plantar left foot pulses intact Psych: Appearance: grossly normal Results Labs 10/17/24 06:05 10/20/24 07:59 Labs: BMP 10/20/24 07:59 Creatinine 1.06 Microbiology Microbiology Results: Microbiology 10/16/24 18:20 Blood - Venous Blood Culture - Preliminary No growth after 48 hours. 10/16/24 18:20 Blood - Venous Blood Culture - Preliminary No growth after 48 hours. Assessment and Plan (1) Foot osteomyelitis, left: Status: Acute (2) Osteomyelitis of great toe of left foot: Status: Acute Plan 6 weeks IV Ertapenem or Vancomycin. Weekly creatinine and Vancomycin levels if goes on Vancomycin. Followup
== END 2024-10-20 17:26 | disposition home health service (06) | DRG 638 ==
LOC: HO.ED 21:22 → HO.EDOVER 21:47 → HO.S3 10-18 11:27
PROVIDERS: Physician Assistant; Physician Assistant Medical; Admitting Provider Student in an Organized Health Care Education/Training Program; Emergency Provider Emergency Medicine; PCP Registered Nurse; Visit Provider Nurse Practitioner Acute Care
DX: E11.69 Type 2 diabetes mellitus with other specified complication (principal); M86.172 Other acute osteomyelitis, left ankle and foot; E11.621 Type 2 diabetes mellitus with foot ulcer; E11.65 Type 2 diabetes mellitus with hyperglycemia; I25.10 Atherosclerotic heart disease of native coronary artery without angina pectoris; E78.2 Mixed hyperlipidemia; L97.529 Non-pressure chronic ulcer of other part of left foot with unspecified severity; I10 Essential (primary) hypertension; Z79.82 Long term (current) use of aspirin; Z79.84 Long term (current) use of oral hypoglycemic drugs; Z79.899 Other long term (current) drug therapy
CPT/HCPCS: 36415; 36573; 73720; 80048; 80053; 80202; 82565; 82947; 83605; 83690; 85025; 85652; 86140; 87040; 99285; A9585; C1751; J0878; J1650; J2543; J3370; J3371

== ENCOUNTER → 2024-10-16 21:27 | Outpatient (BNV) | payer MEDICARE, MEDICAID, SELFPAY | PROVIDERS: Admitting Provider Student in an Organized Health Care Education/Training Program; Emergency Provider Emergency Medicine; PCP Registered Nurse; Visit Provider Student in an Organized Health Care Education/Training Program | DX: M86.9 Osteomyelitis, unspecified (principal); E11.621 Type 2 diabetes mellitus with foot ulcer; E11.65 Type 2 diabetes mellitus with hyperglycemia | CPT/HCPCS: 99222; 99232; 99239 ==

== ENCOUNTER → 2024-10-16 21:27 | Outpatient (BNV) | payer MEDICARE, MEDICAID, SELFPAY | PROVIDERS: Admitting Provider Student in an Organized Health Care Education/Training Program; Emergency Provider Emergency Medicine; PCP Registered Nurse; Visit Provider Internal Medicine | DX: M86.9 Osteomyelitis, unspecified (principal) | CPT/HCPCS: 99222 ==

== ENCOUNTER 2024-10-27 12:45 | Outpatient (REF) | payer MEDICARE, MEDICAID, SELFPAY ==
[2024-10-27 12:48] LABS: MANUAL DIFF FLAG NO
[2024-10-27 12:53] LABS: Basophils Percent Auto 0.7 % (0-2); Eosinophils Absolute Auto 0.1 X10*3/uL (0.0-0.4); Eosinophils Percent Auto 2.4 % (0-4); Hematocrit 36.9 % (42.0-52.0); Hemoglobin 12.2 g/dl (14.0-18.0); Lymphocytes Absolute Auto 0.8 X10*3/uL (1.2-4.9); Lymphocytes Percent Auto 28.4 % (20-40); Mean Corpuscular HGB Conc 33.1 g/dl (31.0-36.0); Mean Corpuscular Volume 84.6 fL (80.0-98.0); Mean Platelet Volume 9.8 fL (9.4-12.4); Monocytes Absolute Auto 0.3 X10*3/uL (0.1-1.2); Monocytes Percent Auto 11.3 % (2-11); Neutrophils Absolute Auto 1.7 x10*3/uL (2.0-8.3); Neutrophils Percent Auto 57.2 % (45-73); Platelet Count 199 X10*3/uL (160-400); Red Blood Count 4.36 X10*6/uL (4.60-5.80); Red Cell Distribution Width 12.4 % (11.0-16.0); White Blood Count 2.9 X10*3/uL (4.8-10.8)
[2024-10-27 13:36] LABS: Anion Gap 12 (12-20); Blood Urea Nitrogen 14 mg/dL (9-16); Calcium 9.7 mg/dL (8.4-10.2); Carbon Dioxide 26 mmol/L (22-29); Chloride 103 mmol/L (96-108); Estimated Glomerular Filt Rate > 60; Glucose Random 290 mg/dL (60-115); Potassium 4.5 mmol/L (3.3-5.1); Sodium 136 mmol/L (135-145)
--- OUTSIDE RECORDS SUMMARY | 2024-10-27 15:28 | XMS_ITS | Encounter Summary ---
Author Organization [facility] Address [address] [place] [address] Phone Care Team Providers Care Food Service Associate Name Role Phone [facility] Primary Care Provider [phone] Encounter Details Date Type Department Care Team (Late Contact Info) Description 05/31/2022 Documentation Only [facility] [address] [place] [address] Alexander Zhou MD [address] [place] [address] [place] [address] Social History Tobacco Use Types [...] Visit [facility] [address] [place] [address] Mick Badillo MD [address] [facility] [place] [address] documented as of this encounter Visit Diagnoses Not on filedocumented in this encounter Care Teams Food Service Associate Relationship Specialty Start Date End Date [facility] [address] [place] [address] [phone] PCP - General 06/26/22 documented as of this encounter
--- OUTSIDE RECORDS SUMMARY | 2024-10-27 15:28 | XMS_ITS | Encounter Summary ---
Author Organization [facility] Address [address] [place] [address] Phone Care Team Providers Care Bulldozer Mechanic Name Role Phone [facility] Primary Care Provider [phone] Encounter Details Date Type Department Care Team (Late Contact Info) Description 09/02/2023 Orders Only [facility] [address] [place] [address] Hank Cho PA Chronic kidney [...] Visit [facility] [address] [place] [address] Mick Badillo MD [address] [place] [address] [place] [address] documented as of this encounter Visit Diagnoses Diagnosis Chronic kidney disease, stage 2 (mild) Essential (primary) hypertension Type 2 diabetes mellitus, not otherwise specified (HCC) documented in this encounter Care Teams Bulldozer Mechanic Relationship Specialty Start Date End Date [facility] [address] [place] [address] PCP - General 06/26/22 documented as of this encounter
--- OUTSIDE RECORDS SUMMARY | 2024-10-27 15:28 | XMS_ITS | Encounter Summary ---
Author Organization [facility] Address [address] [place] [address] Phone Care Team Providers Care Chopped Strand Operator Name Role Phone Kaden Maritza Primary Care Provider [phone] Encounter Details Date Type Department Care Team (Late Contact Info) Description 02/25/2023 Documentation Only [facility] [address] [place] [phone] Hank Cho PA Social History Tobacco Use [...] [facility] [address] [place] [address] Mick Badillo MD [address] [place] [address] [place] [phone] documented as of this encounter Visit Diagnoses Not on filedocumented in this encounter Care Teams Chopped Strand Operator Relationship Specialty Start Date End Date Maritza Alfonso [address] [place] [address] PCP - General 06/26/22 documented as of this encounter
--- OUTSIDE RECORDS SUMMARY | 2024-10-27 15:28 | XMS_ITS | Encounter Summary ---
Author Organization [facility] Address [address] [place] [address] Phone Care Team Providers Care Billing Supervisor Name Role Phone Kaden Maritza Primary Care Provider Encounter Details Date Type Department Care Team (Late Contact Info) Description 05/31/2022 Documentation Only [facility] [address] [place] [phone] Hank Cho PA Social History Tobacco Use [...] Visit [facility] [address] [place] [address] Mick Badillo MD [address] [place] [address] [place] [phone] documented as of this encounter Visit Diagnoses Not on filedocumented in this encounter Care Teams Billing Supervisor Relationship Specialty Start Date End Date Maritza Alfonso [address] [place] [address] PCP - General 06/26/22 documented as of this encounter
--- OUTSIDE RECORDS SUMMARY | 2024-10-27 15:28 | XMS_ITS | Encounter Summary ---
Author Organization [facility] Address [address] [place] [address] Phone Care Team Providers Care Electrical Designer Drafter Name Role Phone [facility] Primary Care Provider [phone] Encounter Details Date Type Department Care Team (Late Contact Info) Description 10/25/2023 Documentation Only [facility] [address] [place] [address] Diane Morrison [address] [place] [address] Social History Tobacco Use Types [...] Visit [facility] [address] [place] [address] Mick Badillo MD [address] [place] [address] [place] [address] documented as of this encounter Visit Diagnoses Not on filedocumented in this encounter Care Teams Electrical Designer Drafter Relationship Specialty Start Date End Date [facility] [address] [place], [place] [phone] PCP - General 06/26/22 documented as of this encounter
--- OUTSIDE RECORDS SUMMARY | 2024-10-27 15:28 | XMS_ITS | Encounter Summary ---
Author Organization [facility] Address [address] [place] [address] Phone Care Team Providers Care Factory Maintenance Manager Name Role Phone Kaden Maritza Primary Care Provider [phone] Encounter Details Date Type Department Care Team (Late Contact Info) Description 06/22/2022 Documentation Only [facility] [address] [place] [phone] Hank Cho PA Social History Tobacco Use [...] Visit [facility] [address] [place] [address] Mick Badillo MD [address] [place] [address] [place] [phone] documented as of this encounter Visit Diagnoses Not on filedocumented in this encounter Care Teams Factory Maintenance Manager Relationship Specialty Start Date End Date Maritza Alfonso [address] [place] [address] PCP - General 06/26/22 documented as of this encounter
--- OUTSIDE RECORDS SUMMARY | 2024-10-27 15:28 | XMS_ITS | Encounter Summary ---
Author Organization [facility] Address [address] [place] [address] Phone Care Team Providers Care Supervisor Livestock Yard Name Role Phone Kaden Maritza Primary Care Provider [phone] Encounter Details Date Type Department Care Team (Late Contact Info) Description 05/28/2022 Documentation Only [facility] [address] [place] [phone] Hank Cho PA Social History Tobacco Use [...] Visit [facility] [address] [place] [address] Mick Badillo MD [address] [place] [address] [place] [phone] documented as of this encounter Visit Diagnoses Not on filedocumented in this encounter Care Teams Supervisor Livestock Yard Relationship Specialty Start Date End Date Maritza Alfonso [address] [place] [address] PCP - General 06/26/22 documented as of this encounter
--- OUTSIDE RECORDS SUMMARY | 2024-10-27 15:28 | XMS_ITS | Encounter Summary ---
Author Organization [employer] Address [address] [facility] [address] [place] [address] Care Team Providers Care Manager Desktop Name Role Phone [facility] Primary Care Provider [phone] Reason for Visit * Reason Comments Pre-visit Planning SDOH screening negat araceli and tobacco screening negative Encounter Details Date Type Department Care Team ([facility] st Contact Info) Description 10/12/2024 Patient Outreach [facility] [address] [place] [address] [facility] [address] [place] [address] Pre-visit Planning (SDOH screening negative and tobacco [...] the past 12 months, has t he [employer], gas, oil or water [employer] threatened to shut off services in your [...] Debora Barnett - 10/12/2024 9:54 AM EST CC Debora placed successful outbound call to patient for [...] Care Team (Late st Contact Info) Description 11/04/2024 11:00 AM EST Clinical Support [facility]INE [address] [place] [address] 12/25/2024 1:00 PM EDT Office Visit [facility] [address] [place] [address] W[place]Maritza, DRILLING RIG OPERATOR [address] [place] [address] documented as of this encounter Visit Diagnoses Not on filedocumented in this encounter Additional Health Concerns Assessment Noted Time PHQ-9 Depression Total Score: 0 01/15/20 24 9:49 AM EDT documented as of this encounter Care Teams Manager Desktop Relationship Specialty Start Date End Date Maritza Alfonso FNP [address] [place] [address] PCP - General Family Medicine 05/24/22 documented as of this encounter
--- OUTSIDE RECORDS SUMMARY | 2024-10-27 15:28 | XMS_ITS | Encounter Summary ---
Author Organization [facility] Address [address] [place] [address] Phone Care Team Providers Care Kiln Burner Helper Name Role Phone Kaden Maritza Primary Care Provider [phone] Encounter Details Date Type Department Care Team (Late Contact Info) Description 06/01/2022 Documentation Only [facility] [address] [place] [phone] Hank Cho PA Social History Tobacco Use [...] [facility] [address] [place] [address] Mick Badillo MD [address] [place] [address] [place] [phone] documented as of this encounter Visit Diagnoses Not on filedocumented in this encounter Care Teams Kiln Burner Helper Relationship Specialty Start Date End Date Maritza Alfonso [address] [place] [address] PCP - General 06/26/22 documented as of this encounter
--- OUTSIDE RECORDS SUMMARY | 2024-10-27 15:28 | XMS_ITS | Encounter Summary ---
Author Organization [facility] Address [address] [facility] 7t [place] [address] Care Team Providers Care It Help Desk Associate Name Role Phone Maritza Alfonso Primary Care Provider Reason for Referral * Imaging (STAT) - Closed Specialty Diagnoses / Procedures Referred By Guanakito t Referred To Contact Radiology Diagnoses Wound of left foot Procedures MR Foot w and w/o Contrast Left Maritza Alfonso FNP [address] [place] [address] Phone: tel: fax: [facility] [address] [place], [place] Phone: tel: fax: Referral ID Status Reason Start Date Expiration Date Visits Re quested Visits Authorized [id number] Closed 10/08/2024 10/08/2025 1 1 Encounter Details Date Type Department Care Team (Late st Contact Info) Description 10/08/2024 Orders Only [facility] [address] [place] [address] Maritza Alfonso FNP [address] [place], [place] [phone] Wound of left foot (Primary Dx) Social [...] Description 11/04/2024 11:00 AM EST Clinical Support [facility] [address] [place] [address] 12/25/2024 1:00 PM EDT Office Visit [facility] [address] [place] [address] [place], Maritza, [facility] [address] [place] [address] documented as of this encounter Procedures Procedure [...] EST Narrative 10/14/2024 4:35 PM EST ? [facility] ?[address] ?[place] [address] ? Magnetic Resonance Report ? Signed ? Patient: Néstor Chamorro ?MR#: [id number] ?? [id number] ? : 1960 ?Acct:[id number] ? Age/Sex: 63 / M ?ADM Date: 10/14/24 ? Loc: HO.MRI ? Attending Dr: Maritza Alfonso COMMERCIAL CENSUS TAKER ? Ordering Physician: Maritza Alfonso ?? Date of Service: 10/14/24 ?? Procedure(s): MR foot LT wo/w con ?? Accession Number(s): [id number] ? cc: Maritza Alfonso COMMERCIAL CENSUS TAKER ? EXAMINATION: ?? MR FOOT WITHOUT AND [...] DD/ 1444 ? TD/TT: 10/14/24 1545 ? Commercial Census Taker: ? Procedure Note Donotuseinterpreter, Image - 10/14/2024 [place] [address] Magnetic Resonance Report Signed Patient: Néstor Chamorro LMR#: [id number] : 1960cct:[id number] Age/Sex: 63 / MADM Date: 10/14/24 Loc: HO.MRI Attending Dr: Maritza Alfonso COMMERCIAL CENSUS TAKER Ordering Physician: Maritza Alfonso Date of Service: 10/14/24 Procedure(s): MR foot LT wo/w con Accession Number(s): [id number] cc: Maritza Alfonso EXAMINATION: MR FOOT WITHOUT AND WITH CONTRAST, [...] by: Khai Moran MD 10/14/2024 04:32 PM [facility] Dictated By: Khai Moran MD Signed By: <Electronically signed by Khai Moran MD in OV> 10/14/24 1632 DD/ 1444 TD/TT: 10/14/24 1545 Commercial Census Taker: [facility] IMG MRI PROCEDURES Final Resu lt documented in this encounter Visit Diagnoses Diagnosis Wound of left foot- Primary documented in this encounter Additional Health Concerns Assessment Noted Time PHQ-9 Depression Total Score: 0 01/15/20 24 9:49 AM EDT documented as of this encounter Care Teams It Help Desk Associate Relationship Specialty Start Date End Date [place] F[place] [address] [place] [address] PCP - General Family Medicine 05/24/22 documented as of this encounter
--- OUTSIDE RECORDS SUMMARY | 2024-10-27 15:28 | XMS_ITS | Encounter Summary ---
Author Organization [facility] Address [address] [place] [address] Phone Care Team Providers Care Mechanic Industrial Truck Name Role Phone Kaden Maritza Primary Care Provider [phone] Encounter Details Date Type Department Care Team (Late Contact Info) Description 02/22/2023 Documentation Only [facility] [address] [place] [phone] Hank Cho PA Social History Tobacco Use [...] Visit [facility] [address] [place] [address] Mick Badillo MD [address] [place] [address] [place] [phone] documented as of this encounter Visit Diagnoses Not on filedocumented in this encounter Care Teams Mechanic Industrial Truck Relationship Specialty Start Date End Date Maritza Alfonso [address] [place] [address] PCP - General 06/26/22 documented as of this encounter
--- OUTSIDE RECORDS SUMMARY | 2024-10-27 15:28 | XMS_ITS | Encounter Summary ---
Author Organization [facility] Address [address] [place] [address] Phone Care Team Providers Care Meat Apprentice Name Role Phone [facility] Primary Care Provider [phone] Encounter Details Date Type Department Care Team (Late Contact Info) Description 10/25/2023 Documentation Only [facility] [address] [place] [address] Diane Morrison [address] [place] [address] Social History Tobacco Use Types [...] Visit [facility] [address] [place] [address] Mick Badillo MD [address] [place] [address] [place] [address] documented as of this encounter Visit Diagnoses Not on filedocumented in this encounter Care Teams Meat Apprentice Relationship Specialty Start Date End Date [facility] [address] [place], [place] [phone] PCP - General 06/26/22 documented as of this encounter
--- OUTSIDE RECORDS SUMMARY | 2024-10-27 15:28 | XMS_ITS | Encounter Summary ---
Author Organization [facility] Address [address] [place] [address] Phone Care Team Providers Care Reinforcing Steel Placer Name Role Phone [facility] Primary Care Provider [phone] Encounter Details Date Type Department Care Team (Late Contact Info) Description 07/07/2024 Documentation Only [facility] [address] [place] [address] Diane Morrison [address] [place] [address] Social History Tobacco Use Types [...] Visit [facility] [address] [place] [address] Mick Badillo MD [address] [place] [address] [place] [address] documented as of this encounter Visit Diagnoses Not on filedocumented in this encounter Care Teams Reinforcing Steel Placer Relationship Specialty Start Date End Date [facility] [address] [place], [place] [phone] PCP - General 06/26/22 documented as of this encounter
--- OUTSIDE RECORDS SUMMARY | 2024-10-27 15:28 | XMS_ITS | Encounter Summary ---
Author Organization [facility] Address [address] [place] [address] Phone Care Team Providers Care Professor Of Finance Name Role Phone [facility] Primary Care Provider [phone] Encounter Details Date Type Department Care Team (Late Contact Info) Description 06/29/2024 Orders Only [facility] [address] [place] [address] Hank Cho PA Chronic kidney [...] Visit [facility] [address] [place] [address] Mick Badillo MD [address] [place] [address] [place] [address] documented as of this encounter Visit Diagnoses Diagnosis Chronic kidney disease, stage 2 (mild) Type 2 diabetes mellitus, not otherwise specified (HCC) Essential (primary) hypertension Microalbuminuria documented in this encounter Care Teams Professor Of Finance Relationship Specialty Start Date End Date [facility] [address] [place] [address] PCP - General 06/26/22 documented as of this encounter
--- OUTSIDE RECORDS SUMMARY | 2024-10-27 15:28 | XMS_ITS | Encounter Summary ---
Author Organization [facility] Address [address] [place] [address] Phone Care Team Providers Care Excavator Backhoe Operator Name Role Phone Kaden Maritza Primary Care Provider [phone] Encounter Details Date Type Department Care Team (Late Contact Info) Description 02/26/2023 Documentation Only [facility] [address] [place] [phone] Hank Cho PA Social History Tobacco Use [...] [facility] [address] [place] [address] Mick Badillo MD [address] [place] [address] [place] [phone] documented as of this encounter Visit Diagnoses Not on filedocumented in this encounter Care Teams Excavator Backhoe Operator Relationship Specialty Start Date End Date Maritza Alfonso [address] [place] [address] PCP - General 06/26/22 documented as of this encounter
--- OUTSIDE RECORDS SUMMARY | 2024-10-27 15:29 | XMS_ITS | Encounter Summary ---
Author Organization [employer] Address [address] [facility] [address] 7t [place] [address] Care Team Providers Care Ready Mix Truck Driver Name Role Phone [facility] Primary Care Provider [phone] Encounter Details Date Type Department Care Team ([facility] st Contact Info) Description 07/29/2023 Orders Only [facility] [address] [place], [place] [phone] [facility] [address] [place] [address] Neoplasm of uncertain behavior (Primary Dx) Social [...] Description 11/04/2024 11:00 AM EST Clinical Support [facility] [address] [place] [address] 12/25/2024 1:00 PM EDT Office Visit [facility] [address] [place] [address] Maritza Alfonso FNP [address] [place] [address] documented as of this encounter Visit Diagnoses Diagnosis 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
--- OUTSIDE RECORDS SUMMARY | 2024-10-27 15:29 | XMS_ITS | Encounter Summary ---
Author Organization [employer] Address [address] [facility] [address] 7t [place] [address] Care Team Providers Care Potato Peeler Name Role Phone [facility] Primary Care Provider [phone] Encounter Details Date Type Department Care Team (Late st Contact Info) Description 07/18/2023 Abstract [facility] [address] [place], [place] [phone] Mireya Khalil Social History Tobacco Use Types [...] Description 11/04/2024 11:00 AM EST Clinical Support [address] [address] 12/25/2024 1:00 PM EDT Office Visit [address] [address] Maritza Alfonso FNP [address] [place] [address] documented as of this encounter Visit Diagnoses Not on filedocumented in this encounter Additional Health Concerns Assessment Noted Time PHQ-9 Depression Total Score: 4 04/03/20 23 10:08 AM EDT documented as of this encounter Care Teams Potato Peeler Relationship Specialty Start Date End Date Maritza Alfonso FNP [address] [place] [address] PCP - General Family Medicine 05/24/22 documented as of this encounter
--- OUTSIDE RECORDS SUMMARY | 2024-10-27 15:29 | XMS_ITS | Encounter Summary ---
Author Organization [employer] Address [address] [facility] 7t [place] [address] Care Team Providers Care Strategy Lead Name Role Phone [place] [facility] Primary Care Provider [phone] Reason for Referral * Consultation (Routine) - Closed Specialty Diagnoses / Procedures Referred By Contac t Referred To Contact Podiatry Diagnoses Localized swelling of left foot Charcot foot due to diabetes mellitus (CMS/HCC) Hx of diabetic foot ulcer Catarina Samayoa MD [address] [place] [address] Phone: tel: fax: [facility] [address] Phone: tel: fax: Referral ID Status Reason Start Date Expiration Date V isits Requested Visits Authorized [id number] Closed Specialty Services Required 08/13/2024 08/13/2025 1 1 Reason for Visit * Reason Comments Foot Pain Encounter Details Date Type Department Care Team (Late st Contact Info) Description 08/13/2024 1:00 PM EST Office Visit [facility] [address] [place] [phone] Catarina Samayoa MD [address] [place] [phone] Localized swelling of left foot (Primary Dx); [...] localized left foot swelling and sent to [facility] ED for further evaluation. Left Foot XR [...] in his left foot. 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 Review of [...] Diagnoses Charcot foot due to diabetes mellitus ([facility]) Relevant Medications amoxicillin-clavulanate (Augmentin) 875-125 MG tablet [...] Description 11/04/2024 11:00 AM EST Clinical Support [facility] [address] [place] [address] 12/25/2024 1:00 PM EDT Office Visit [facility] [address] [place] [address] Maritza Alfonso FNP [address] [place] [address] Scheduled Referrals Name Type Priority Associated Diagnoses Orde r Schedule Referral to Podiatry Outpatient Referral Routine Localized swelling of left foot Charcot foot due to diabetes mellitus (CMS/[facility]) Hx of diabetic foot ulcer Expected: 08/13/2024 [...] AM EST Narrative 10/02/2024 9:19 AM EST ?[facility] ?[address] ?[place] [address] ?XRay Report ? Signed ? Patient: Néstor Chamorro ?MR#: [id number] ?? [id number] ? : 1960 ?Acct:[id number] ? Age/Sex: 63 / M ?ADM Date: 08/13/24 ? Loc: HO.HHCX ? Attending Dr: Catarina Samayoa MD ? Ordering Physician: Catarina Samayoa MD ?? Date of Service: 08/13/24 ?? Procedure(s): XR foot LT min 3V ?? Accession Number(s): [id number] ? cc: Catarina Samayoa MD; Maritza Alfonso ? EXAMINATION: ?? XR FOOT LEFT ? [...] DD/ 1146 ? TD/TT: 08/13/24 1148 ? Fur Cutter: SR ? Procedure Note Stan, Image - 10/02/[address] [address] XRay Report Signed Patient: Néstor Chamorro LMR#: [id number] : 1960cct:[id number] Age/Sex: 63 / MADM Date: 08/13/24 Loc: HO.HHCX Attending Dr: Catarina Samayoa MD Ordering Physician: Catarina Samayoa MD Date of Service: 08/13/24 Procedure(s): XR foot LT min 3V Accession Number(s): [id number] cc: Catarina Samayoa MD; [facility] EXAMINATION: XR FOOT LEFT CLINICAL INFORMATION: [...] by: Sam Gillette MD 10/02/2024 09:16 AM [facility] Dictated By: Sam Gillette MD Signed By: <Electronically signed by Sam Gillette MD in OV> 10/02/24 0916 DD/ 1146 TD/TT: 08/13/24 1148 Fur Cutter: SR us Catarina Samayoa MD IMG XR PROCEDURES Final Re sult documented in this encounter Visit Diagnoses Diagnosis Localized swelling of left foot- Primary Charcot foot due to diabetes mellitus ([facility]) Hx of diabetic foot ulcer documented in this encounter Additional Health Concerns Assessment Noted Time PHQ-9 Depression Total Score: 0 01/15/20 24 9:49 AM EDT documented as of this encounter Care Teams Strategy Lead Relationship Specialty Start Date End Date Maritza Alfonso FNP [address] [place] [address] PCP - General Family Medicine 05/24/22 documented as of this encounter
--- OUTSIDE RECORDS SUMMARY | 2024-10-27 15:29 | XMS_ITS | Encounter Summary ---
Author Organization [employer] Address [address] [facility] 7t [place] [address] Care Team Providers Care Icu Nurse Name Role Phone Maritza Alfonso [facility] Primary Care Provider [phone] Reason for Referral * Consultation (Routine) - Authorized Specialty Diagnoses / Procedures Referred By Guanakito caro Referred To Contact Wound Care Diagnoses Wound of left foot Maritza Alfonso [facility] [address] [place] [address] Phone: tel: fax: [facility] [address] [place] [address] Phone: tel: fax: Referral ID Status Reason Start Date Expiration Date Visits Requested Visits Authorized [id number] Authorized Specialty Services Required 10/07/2024 10/07/2025 1 1 * Imaging (STAT) - Canceled Specialty Diagnoses / Procedures Referred By Guanakito caro Referred To Contact Radiology Diagnoses Wound of left foot Procedures Mr Foot w/o Contrast Left Maritza Alfonso [facility] [address] [place] [address] Phone: tel: fax: [facility] [address] [place], [place] Phone: tel: fax: Referral ID Status Reason Start Date Expiration Date V isits Requested Visits Authorized [id number] Canceled 10/07/2024 10/07/2025 1 1 Reason for Visit * Reason Comments follow up foot ulcer Encounter Details Date Type Department Care Team (Late st Contact Info) Description 10/07/2024 11:00 AM EST Office Visit [facility] [address] [place] [address] Maritza Alfonso FNP [address] [place] [address] Type 2 diabetes mellitus with hyperglycemia, without long-term current use of insulin ([facility]) (Primary Dx); Wound of left foot Social [...] documented in this encounter Progress Notes * [facility], [facility] - 10/07/2024 11:00 AM EST SUBJECTIVE: [...] this time. He was previously followed by [facility] wound care and podiatry but was lost to follow up since -04/2024. At walk in [place] He was prescribed 2 weeks of Augmentin and referred back to podiatry. X-ray at this time with concern for possible occult osteomyelitis. Today patient denies fever or chills discharge or increased swelling he has an appointment with podiatry scheduled for October. Social History Social History Narrative Current living environment: Has BLOOD TESTER. Lives alone Children: 2 Activities: Enjoys [...] hyperglycemia, without long-term current use of insulin ([facility]) (Primary) Lab Results Component Value Date HGBA1C [...] facility-administered medications on file prior to visit. Mauritanian Translation: Provided by [facility] staff member KATTY Sahu documented in this encounter Plan of Treatment Upcoming Encounters Date Type Department Care Team (Late st Contact Info) Description 11/04/2024 11:00 AM EST Clinical Support [address] [address] 12/25/2024 1:00 PM EDT Office Visit [address] [address] Maritza Alfonso FNP [address] [place] [address] Scheduled Orders Name Type Priority Associated Diagnoses [...] hyperglycemia, without long-term current use of insulin ([facility]) CBC WITH AUTO DIFFERENTIAL Routine 10/08/2024 9:55 AM EST Wound of left foot SED RATE BY MODIFIED WESTERGREN Routine 10/08/2024 9:55 AM EST Wound of left foot C-REACTIVE PROTEIN Routine 10/08/2024 9: 55 AM EST Wound of left foot LIPID PANEL, STANDARD Routine 10/08/2024 9:55 AM EST Type 2 diabetes mellitus with hyperglycemia, without long-term current use of insulin ([facility]) COMPREHENSIVE METABOLIC PANEL Routine 10/08/2024 9:55 AM EST Type 2 diabetes mellitus with hyperglycemia, without long-term current use of insulin ([facility]) POCT GLYCATED HEMOGLOBIN, TOTAL Routine 10/07/2024 11:04 AM EST Type 2 diabetes mellitus with hyperglycemia, without long-term current use of insulin ([facility]) POCT GLUCOSE Routine 10/07/2024 11:04 AM EST Type 2 diabetes mellitus with hyperglycemia, without long-term current use of insulin ([facility]) documented in this encounter Results * (ABNORMAL) C-reactive Protein (10/08/2024 9:55 AM EST) C Reactive Protein 2.03(H) < or = 0.50 mg/dL [facility] Blood Venous blood specimen / Unknown 10/08/2024 9:55 AM EST 10/08/2024 9:55 AM EST [facility] LAB BLOOD ORDERABLES Final [facility] Performing Organization Address [facility]/ZIP Co de Phone Number [facility] [address] [place] [address] [phone] * (ABNORMAL) Sed Rate by Modified Tommieren (10/08/2024 9:55 AM EST) Erythrocyte Sedimentation Rate 38(H) 0 - 15 MM/HR [facility] Comment:Patients with polycy themia and many hemoglobin abnormalitiesmay have depressed sed rates whereas patients with anemiamay have elevated sed rates. Blood Venous blood specimen / Unknown 10/08/2024 9:55 AM EST 10/08/2024 9:55 AM EST [facility] LAB BLOOD ORDERABLES Final Re sult Performing Organization Address [facility]/ZIP Co de Phone Number [facility] [address] [place] [address] [phone] * (ABNORMAL) CBC auto differential (10/08/2024 9:55 AM EST) Pathologist [facility] White Blood Count 3.6(L) 4.8 - 10.8 X10*3/uL [facility] Red Blood Count 4.71 4.60 - 5.80 X10*6/uL [facility] Hemoglobin 13.1(L) 14.0 - 18.0 g/dl [facility] Hematocrit 40.7(L) 42.0 - 52.0 % [facility] Mean Corpuscular Volume 86.4 80.0 - 98.0 fL [facility] Mean Corpuscular Hemoglobin 27.8 27.0 - 33.0 pg [facility] Mean Corpuscular HGB Conc 32.2 31.0 - 36.0 g/dl [facility] Red Cell Distribution Width 12.4 11.0 - 16.0 % [facility] Platelet Count 210 160 - 400 X10*3/uL [facility] Mean Platelet Volume 9.1(L) 9.4 - 12.4 fL [facility] Neutrophils Percent Auto 65.7 45 - 73 % [facility] Imm Gran Pct Auto 0.3 0.0 - 0.4 % [facility] Lymphocytes Percent Auto 19.9(L) 20 - 40 % [facility] Monocytes Percent Auto 11.6(H) 2 - 11 % [facility] Eosinophils Percent Auto 2.2 0 - 4 % [facility] Basophils Percent Auto 0.3 0 - 2 % [facility] NRBC Pct Auto 0.0 0.0 - 0.2 /100WBC [facility] Neutrophils Absolute Auto 2.4 2.0 - 8.3 x10*3/uL [facility] Imm Gran Abs Auto 0.01 0.00 - 0.03 X10*3/uL [facility] Lymphocytes Absolute Auto 0.7(L) 1.2 - 4.9 X10*3/uL [facility] Monocytes Absolute Auto 0.4 0.1 - 1.2 X10*3/uL [facility] Eosinophils Absolute Auto 0.1 0.0 - 0.4 X10*3/uL [facility] Basophils Absolute Auto 0.0 0.0 - 0.2 X10*3/uL [facility] NRBC Abs Auto 0.000 0.0 - 0.012 X10*3/uL [facility] Blood Venous blood specimen / Unknown 10/08/2024 9:55 AM EST 10/08/2024 9:55 AM EST [facility] LAB BLOOD ORDERABLES Final Re sult [facility] [address] [place] [address] [phone] * Lipid Panel, Standard (10/08/2024 9:55 AM EST) Triglycerides 51 <150 mg/dL [facility] Comment:Desirable Triglyceri de: less than 150 mg/dLBorderline High Triglyceride 150-199 mg/dLHigh Triglyceride: 200-499 mg/dLVery High Triglyceride: greater than or equal to 5OO mg/dL Cholesterol 153 <200 mg/dL [facility] Comment:Desirable Cholestero l: less than 200 mg/dLBorderline High Cholesterol: 200-239 mg/dLHigh Cholesterol: greater than 239 mg/dL LDL Cholesterol Calculated 91 <100 mg/dL [facility] Comment:Desirable LDL: less than 100 mg/dLNear Optimal/Above Optimal LDL: 110- 129 mg/dLBorderline High LDL: 130-159 mg/dLHigh LDL: 160-189 mg/dLVery High LDL: greater than or equal to 190 mg/dL HDL Cholesterol 52 >40 mg/dL [facility] Comment:Desirable HDL: great er than 40 mg/dL Note: This HDL assay may give artificially low results in patients with liver disease. Blood Venous blood specimen / Unknown 10/08/2024 9:55 AM EST 10/08/2024 9:55 AM EST [facility] LAB BLOOD ORDERABLES Final Re sult [facility] [address] [place] [address] [phone] * (ABNORMAL) Comprehensive Metabolic Panel (10/08/2024 9:55 AM EST) Sodium 136 135 - 145 mmol/L [facility] Potassium 4.2 3.3 - 5.1 mmol/L [facility] Chloride 101 96 - 108 mmol/L [facility] Carbon Dioxide 26 22 - 29 mmol/L [facility] Anion Gap 13 12 - 20 [facility] Urea Nitrogen (BUN) 11 9 - 16 mg/dL [facility] Creatinine, Serum 0.92 0.5 - 1.4 mg/dL [facility] Estimated Glomerular Filt Rate >60 [facility] Comment:Chronic Kidney Disea se: Estimated GFR < 60 mL/min/[id number] Kidney Disease: Estimated GFR < 15 mL/min/1.73m2 Glucose 167(H) 60 - 115 mg/dL [facility] Calcium 10.1 8.4 - 10.2 mg/dL [facility] Bilirubin, Total 0.5 0.0 - 1.0 mg/dL [facility] Aspartate Amino Transferase 25 5 - 37 U/L [facility] Alanine Aminotransferase 20 0 - 40 U/L [facility] Total Protein 8.8(H) 6.5 - 8.0 g/dL [facility] Albumin Level 4.5 3.5 - 5.0 g/dL [facility] Alkaline Phosphatase 72 39 - 117 U/L [facility] Blood Venous blood specimen / Unknown 10/08/2024 9:55 AM EST 10/08/2024 9:55 AM EST [facility] LAB BLOOD ORDERABLES Final Re sult Performing Organization Address [facility] de Phone Number [facility] [address] [place] [phone] * Albumin, Random Urine W/Creatinine (10/08/2024 9:55 AM EST) Creatinine, Urine 98.17 mg/dL [facility] Microalbumin Urine 20.0 mg/L [facility] Microalbum Creatinine Ratio Ur 20.3 <30 ug/mg cr [facility] Comment:Albumin/Creatinine R atio Reference Ranges: Normal: < 30 ug/mg creatinine Microalbuminuria: 30 - 300 ug/mg creatinineClinical Albuminuria: > 300 ug/mg creatinine Urine 10/08/2024 9:55 AM EST 10/08/2024 10:32 AM EST [facility] URINE ORDERABLES Final Re sult Performing Organization Address [facility] Co de Phone Number [facility] [address] [place] [phone] * (ABNORMAL) POCT HGB A1C (10/07/2024 11:04 AM EST) Hemoglobin A1C 8.5(A) 4.0 - 6.0 % Blood 10/07/2024 11:0 4 AM EST Result [facility] POINT OF CARE TEST ENTER/EDIT ORDERABLES Final Result * POCT Glucose (10/07/2024 11:04 AM EST) Glucose Blood, POC 200 60 - 200 mg/dL Blood Capillary blood specimen / Unknown 10/07/2024 11:04 AM EST Result [facility] POINT OF CARE TEST ENTER/EDIT ORDERABLES Final Result documented in this encounter Visit Diagnoses Diagnosis Type 2 diabetes mellitus with hyperglycemia, without long-term current use of insulin ([facility])- Primary Wound of left foot documented in this encounter Additional Health Concerns Assessment Noted Time PHQ-9 Depression Total Score: 0 01/15/20 24 9:49 AM EDT documented as of this encounter Care Teams Icu Nurse Relationship Specialty Start Date End Date [facility] [address] [place] [address] PCP - General Family Medicine 05/24/22 documented as of this encounter
--- OUTSIDE RECORDS SUMMARY | 2024-10-27 15:29 | XMS_ITS | Encounter Summary ---
Author Organization [employer] Address [address] [facility] 7t [place] [address] Care Team Providers Care Head Of History Name Role Phone [facility] Primary Care Provider [phone] Encounter Details Date Type Department Care Team [...] Description 11/04/2024 11:00 AM EST Clinical Support [address] [address] 12/25/2024 1:00 PM EDT Office Visit [facility] [address] [place] [address] [facility] [address] [place] [address] documented as of this encounter Procedures Procedure [...] Sedimentation Rate 54(H) 0 - 15 MM/HR [facility] Comment:Patients with polycy themia and many hemoglobin abnormalitiesmay have depressed sed rates whereas patients with anemiamay have elevated sed rates. 10/16/2024 6:20 PM EST 10/16/2024 6:27 PM EST us Generic External Data Provider LAB BLOOD ORDERAB LES Final Result Performing Organization Address City/[facility]/ZIP Co de Phone Number [facility] [address] [place] [phone] * Lactic Acid (10/16/2024 6:20 PM EST) Pathologist [facility] Lactic Acid 1.0 0.5 - 2.0 mmol/L [facility] 10/16/2024 6:20 PM EST 10/16/2024 6:27 PM EST us Generic External Data Provider LAB BLOOD ORDERAB LES Final Result Performing Organization Address [facility] Co de Phone Number [facility] [address] [place] [phone] * Lipase (10/16/2024 6:20 PM EST) Pathologist [facility] Lipase 25 8 - 78 U/L [facility] 10/16/2024 6:20 PM EST 10/16/2024 6:27 PM EST Generic External Data Provider LAB BLOOD ORDERAB LES Final Result Performing Organization Address [facility] Co de Phone Number [facility] [address] [place] [phone] * (ABNORMAL) C-reactive Protein (10/16/2024 6:20 PM EST) Pathologist [facility] C Reactive Protein 1.74(H) < or = 0.50 mg/dL [facility] 10/16/2024 6:20 PM EST 10/16/2024 6:27 PM EST us Generic External Data Provider LAB BLOOD ORDERAB LES Final Result [facility] [address] [place] [address] [phone] * (ABNORMAL) Comprehensive Metabolic Panel (10/16/2024 6:20 PM EST) Sodium 136 135 - 145 mmol/L [facility] Potassium 4.0 3.3 - 5.1 mmol/L [facility] Chloride 100 96 - 108 mmol/L [facility] Carbon Dioxide 28 22 - 29 mmol/L [facility] Anion Gap 12 12 - 20 [facility] Urea Nitrogen (BUN) 14 9 - 16 mg/dL [facility] Creatinine, Serum 1.24 0.5 - 1.4 mg/dL [facility] Creatinine Clr Calc Pharmacy 63.5 [facility] Comment:eGFR (calculated fro m the MDRD study equation) and eCrCl(calculated from the Cockcroft-Gault equation) are based ondifferent parameters and may not yield comparable results.If eCrCl result is absurd, please check patient'sheight/weight. Estimated Glomerular Filt Rate 59 [facility] Comment:Chronic Kidney Disea se: Estimated GFR < 60 mL/min/[id number] Kidney Disease: Estimated GFR < 15 mL/min/1.73m2 Glucose 248(H) 60 - 115 mg/dL [facility] Calcium 10.0 8.4 - 10.2 mg/dL [facility] Bilirubin, Total 0.3 0.0 - 1.0 mg/dL [facility] Aspartate Amino Transferase 21 5 - 37 U/L [facility] Alanine Aminotransferase 16 0 - 40 U/L [facility] Total Protein 8.8(H) 6.5 - 8.0 g/dL [facility] Albumin Level 4.4 3.5 - 5.0 g/dL [facility] Alkaline Phosphatase 78 39 - 117 U/L [facility] 10/16/2024 6:20 PM EST 10/16/2024 6:27 PM EST us Generic External Data Provider LAB BLOOD ORDERAB LES Final Result [facility] [address] [place] [phone] * (ABNORMAL) CBC auto differential (10/16/2024 6:20 PM EST) White Blood Count 4.7(L) 4.8 - 10.8 X10*3/uL [facility] Red Blood Count 4.68 4.60 - 5.80 X10*6/uL [facility] Hemoglobin 13.0(L) 14.0 - 18.0 g/dl [facility] Hematocrit 39.0(L) 42.0 - 52.0 % [facility] Mean Corpuscular Volume 83.3 80.0 - 98.0 fL [facility] Mean Corpuscular Hemoglobin 27.8 27.0 - 33.0 pg [facility] Mean Corpuscular HGB Conc 33.3 31.0 - 36.0 g/dl [facility] Red Cell Distribution Width 12.1 11.0 - 16.0 % [facility] Platelet Count 233 160 - 400 X10*3/uL [facility] Mean Platelet Volume 9.1(L) 9.4 - 12.4 fL [facility] Neutrophils Percent Auto 70.8 45 - 73 % [facility] Imm Gran Pct Auto 0.2 0.0 - 0.4 % [facility] Lymphocytes Percent Auto 19.7(L) 20 - 40 % [facility] Monocytes Percent Auto 7.0 2 - 11 % [facility] Eosinophils Percent Auto 2.1 0 - 4 % [facility] Basophils Percent Auto 0.2 0 - 2 % [facility] NRBC Pct Auto 0.0 0.0 - 0.2 /100WBC [facility] Neutrophils Absolute Auto 3.3 2.0 - 8.3 x10*3/uL [facility] Imm Gran Abs Auto 0.01 0.00 - 0.03 X10*3/uL [facility] Lymphocytes Absolute Auto 0.9(L) 1.2 - 4.9 X10*3/uL [facility] Monocytes Absolute Auto 0.3 0.1 - 1.2 X10*3/uL [facility] Eosinophils Absolute Auto 0.1 0.0 - 0.4 X10*3/uL [facility] Basophils Absolute Auto 0.0 0.0 - 0.2 X10*3/uL [facility] NRBC Abs Auto 0.000 0.0 - 0.012 X10*3/uL [facility] 10/16/2024 6:20 PM EST 10/16/2024 6:27 PM EST us Generic External Data Provider LAB BLOOD ORDERAB LES Final Result [facility] [address] [place] [phone] documented in this encounter Visit Diagnoses Not on filedocumented in this encounter Additional Health Concerns Assessment Noted Time PHQ-9 Depression Total Score: 0 01/15/20 24 9:49 AM EDT documented as of this encounter Care Teams Head Of History Relationship Specialty Start Date End Date Maritza Alfonso FNP [address] [place] [phone] PCP - General Family Medicine 05/24/22 documented as of this encounter
--- OUTSIDE RECORDS SUMMARY | 2024-10-27 15:29 | XMS_ITS | Encounter Summary ---
Author Organization [employer] Address [address] [place] [address] Care Team Providers Care Parking Manager Name Role Phone [facility] Primary Care Provider [phone] Reason for Visit * Reason Comments Med Refill Encounter Details Date Type Department Care Team ([facility] st Contact Info) Description 09/28/2024 Refill [facility] [address] [place], [place] [phone] [facility] [address] [place], [place] [phone] Social History Tobacco Use Types Packs/Day Years [...] Description 11/04/2024 11:00 AM EST Clinical Support [address] [address] 12/25/2024 1:00 PM EDT Office Visit [address] [address] Maritza Alfonso FNP [address] [place] [address] documented as of this encounter Visit Diagnoses Not on filedocumented in this encounter Additional Health Concerns Assessment Noted Time PHQ-9 Depression Total Score: 0 01/15/20 24 9:49 AM EDT documented as of this encounter Care Teams Parking Manager Relationship Specialty Start Date End Date Maritza Alfonso FNP [address] [place] [address] PCP - General Family Medicine 05/24/22 documented as of this encounter
--- OUTSIDE RECORDS SUMMARY | 2024-10-27 15:29 | XMS_ITS | Encounter Summary ---
Author Organization [employer] Address [address] [place] [address] Care Team Providers Care Skilled Nursing Professional Name Role Phone [facility] Primary Care Provider [phone] Reason for Visit * Reason Onset Date Comments Referral 07/03/2024 Encounter Details Date Type Department Care Team ([facility] st Contact Info) Description 07/03/2024 Telephone [facility] [address] [place], [place] [phone] [facility] [address] [place] [address] Referral Social History Tobacco Use Types Packs/Day [...] Y/N: Yes Provider name or facility name: [facility] Escort needed: Y/N: No Do you have a wheelchair: Y/N: No If yes- Manual or electric: Visits: (amount of visits) ( x monthly, weekly, daily) documented in this encounter Plan of Treatment Upcoming Encounters Date Type Department Care Team (Late st Contact Info) Description 11/04/2024 11:00 AM EST Clinical Support [facility] [address] [place] [address] 12/25/2024 1:00 PM EDT Office Visit [facility] [address] [place] [phone] Maritza Alfonso FNP [address] [place] [address] documented as of this encounter Visit Diagnoses Not on filedocumented in this encounter Additional Health Concerns Assessment Noted Time PHQ-9 Depression Total Score: 0 01/15/20 24 9:49 AM EDT documented as of this encounter Care Teams Skilled Nursing Professional Relationship Specialty Start Date End Date [place], IVONNE Salas [address] [place] [phone] PCP - General Family Medicine 05/24/22 documented as of this encounter
--- OUTSIDE RECORDS SUMMARY | 2024-10-27 15:29 | XMS_ITS | Clinical Summary ---
Author Organization [facility], Address [address] [place] [address] [place] [address] Phone Care Team Providers Care Advertising Sales Assistant Name Role Phone [facility] Primary Care Provider [phone] Allergies Active Allergy Reactions Criticality Noted Date [...] Visit [facility], [address] [place] [address] Mick Badillo MD [address] [place] [phone] Health Maintenance Due Date Last Done Comments [...] Name Priority Date/Time Associated Diagnosis Comments LAB PERSONNEL AND PAYROLL TECHNICIAN Routine 01/29/2018 12:00 AM EDT from Last 3 Months or Most Recently Relevant to Health Maintenance Results * Lab [place] (01/29/2018 12:00 AM EDT) Hemoglobin A1C 7.8 % [facility] 01/29/2018 us [facility] Conversion LAB [id number] LICITED RESULTS Final Result [facility] from Last 3 Months or Most Recently Relevant to Health Maintenance Insurance [place]ICARE Care Teams Advertising Sales Assistant Relationship Specialty Start Date End Date [facility] [address] [place] [address] PCP - General 06/26/22
--- OUTSIDE RECORDS SUMMARY | 2024-10-27 15:29 | XMS_ITS | Encounter Summary ---
Author Organization [employer] Address [address] [place] [address] Care Team Providers Care Building Construction Estimator Name Role Phone [facility] Primary Care Provider [phone] Encounter Details Date Type Department Care Team (Latest Contact Info) Description 10/26/2024 Travel Social History Tobacco Use Types Packs/Day Years Used Date Smoking Tobacco: Never Passive Smoke Exposure: Never Smokeless Tobacco: Never Alcohol Use Standard [...] Description 11/04/2024 11:00 AM EST Clinical Support [address] [address] 12/25/2024 1:00 PM EDT Office Visit [address] [address] Maritza Alfonso FNP [address] [place] [address] documented as of this encounter Visit Diagnoses Not on filedocumented in this encounter Additional Health Concerns Assessment Noted Time PHQ-9 Depression Total Score: 0 01/15/20 24 9:49 AM EDT documented as of this encounter Care Teams Building Construction Estimator Relationship Specialty Start Date End Date Maritza Alfonso FNP [address] [place] [phone] PCP - General Family Medicine 05/24/22 documented as of this encounter
--- OUTSIDE RECORDS SUMMARY | 2024-10-27 15:29 | XMS_ITS | Clinical Summary ---
Author Organization [employer] Address [address] [facility] [address] [place] [address] Care Team Providers Care Campus Police Officer Name Role Phone [facility] Primary Care Provider [phone] Allergies Active Allergy Reactions Criticality Noted Date [...] mouth 1 (one) time each day. Active Blood Glucose Monitoring Suppl (True Metrix Meter) w/Device kitIndications: Type 2 diabetes mellitus with hyperglycemia, with long-term current use of insulin ([facility]) 1 kit before breakfast, before lunch, before evening meal, and at bedtime. 1 kit 09/20/19 23 Active TRUEplus Lancets 33G miscIndications :Type 2 diabetes mellitus with hyperglycemia, with long-term current use of insulin ([facility]) TEST BLOOD SUGAR 4 TIMES A DAY 100 each 04/09/20 23 Active glucose blood (FREESTYLE LITE) test stripIndication s:Type 2 diabetes mellitus with hyperglycemia, with long-term current use of insulin ([facility]) TEST BLOOD SUGAR 4 TIMES A DAY 100 strip 04/09/20 23 Active metFORMIN XR (Glucophage-XR) 500 MG 24 hr tabletIndicatio ns:Type 2 diabetes mellitus with hypoglycemia without coma, without long-term current use of insulin ([facility]) Take 1 tablet (500 mg) by mouth 2 times daily. 360 tablet 1 05/20/20 24 Active metoprolol succinate XL (Toprol-XL) [...] without long-term current use of insulin (CMS/HCC) Take 1 tablet (25 mg) by mouth Once per day. 30 tablet 10/07/19 25 026 Active Dulaglutide (Trulicity) 3 MG/0.5ML solution auto-injectorIn dications:Type 2 diabetes mellitus with hyperglycemia, without long-term current use of insulin ([facility]) Inject 3 mg under the skin 1 (one) time per week. 2 mL 10/26/19 25 026 Active Alcohol Swabs (Alcohol Prep) padsIndications :Type 2 diabetes mellitus with hyperglycemia, without long-term current use of insulin ([facility]) Use one pad each to prep skin prior to injection as directed 100 each 10/26/19 25 Active Lancets 33G miscIndications :Type 2 diabetes mellitus with hyperglycemia, without long-term current use of insulin ([facility]) Use as directed to check blood sugar four times daily 100 each 3 10/26/19 25 Active Blood Glucose Monitoring Suppl (GNP Easy Touch Glucose Meter) deviceIndicatio ns:Type 2 diabetes mellitus with hyperglycemia, without long-term current use of insulin ([facility]) Use as directed to check blood sugar four times daily 1 each 10/26/19 25 Active glucose blood test stripIndication s:Type 2 diabetes mellitus with hyperglycemia, without long-term current use of insulin ([facility]) Use as directed to check blood sugar four times daily 100 each 12 10/26/19 25 Active ondansetron (Zofran) 4 MG tabletIndicatio ns:Nausea Take 1 tablet (4 mg) by mouth every 8 (eight) hours if needed for nausea or vomiting. 30 tablet 2 10/26/19 25 Active UltiGuard SafePack Pen Needle 32G X 4 MM miscIndications :Type 2 diabetes mellitus with diabetic chronic kidney disease, unspecified CKD stage, unspecified whether middle or intermediate school principal insulin use ([facility]) USE ONCE DAILY WITH INSULIN 100 each 3 08/16/20 22 025 Discontinued D3 Super Strength 50 MCG (2000 UT) capsule TAKE 1 CAPSULE BY MOUTH EVERY MORNING 90 capsule 1 12/06/19 24 025 Discontinued dulaglutide (Trulicity) 1.5 MG/0.5ML solution pen-injectorInd ications:Type 2 diabetes mellitus with hyperglycemia, without long-term current use of insulin ([facility]) Inject 1.5 mg under the skin 1 (one) time per week. 4 each 11 01/15/20 24 025 Discontinued metoprolol succinate XL (Toprol-XL) 50 MG 24 hr tablet TAKE 1 TABLET BY MOUTH EVERY MORNING 90 tablet 1 02/26/20 24 025 Discontinued Aspirin Adult Low Strength 81 MG EC tablet TAKE 1 TABLET BY MOUTH EVERY MORNING 90 tablet 1 02/26/20 24 025 Discontinued empagliflozin (Jardiance) 10 MGIndications:T ype 2 diabetes mellitus with hypoglycemia without coma, without long-term current use of insulin ([facility]) Take 1 tablet (10 mg) by mouth Once per day. 30 tablet 05/20/20 24 025 Discontinued(Re order (will not trigger notification to Pharmacy)) Active [...] Declines PSA: 04/2023 Vision Exam: Referred to [facility] 04/2023 Immunizations:Declines PCV 20 04/2023 Assessment & [...] arteriosclerosis 08/13/2022 Overview (04/03/2023): ?? Folllowed by [facility] cardiology Dr. Morales ?? 01/2023 Negative Echo. Negative stress test Leukopenia 03/26/2022 Overview (04/03/2023): ?? Followed by hematology/oncology at [facility]. Last seen apporx 6 months ago. Reports [...] toe amputation Eye Exam: Referred back to [facility] optometry 04/2023 Statin: Yes ASA: Yes YASHIRA/ARB: [...] previously ordered labs. Will re order to [facility] lab today Essential (primary) hypertension 08/12/2012 Overview [...] Encounters Date Type Department Care Team Description 10/26/2024 9:45 AM EST Office Visit [facility] [address] [place] [phone] KadenMaritza moore FNP Type 2 diabetes mellitus with hyperglycemia, without long-term current use of insulin ([facility]) (Primary Dx); Nausea; Osteomyelitis of left foot, unspecified type (CMS/HCC) 10/26/2024 Travel 10/16/2024 Orders Only GENERIC EXTERNAL DATA DEPARTMENT Provider, Generic External Data 10/16/[address] [address] Maritza Alfonso FNP 10/12/2024 Patient Outreach [address] [address] JoppaMaritza FNP Pre-visit Planning (SDOH screening negative and tobacco screening negative) 10/08/2024 Orders Only [facility] [address] [place] [phone] Maritza Alfonso FNP Wound of left foot (Primary Dx) 10/07/2024 11:00 AM EST Office Visit [address] [address] Maritza Alfonso FNP Type 2 diabetes mellitus with hyperglycemia, without long-term current use of insulin ([facility]) (Primary Dx); Wound of left foot 10/07/2024 Telephone [facility] [address] [place] [address] Maritza Alfonso FNP MRI FOOT ORDER 10/07/2024 Travel 10/02/2024 Telephone [facility] [address] [place] [address] [phone] Rosa Solano RN Results 09/28/2024 Refill [facility] [address] [place] [phone] JoppaMaritza, STAPLER MACHINE 08/13/2024 1:00 PM EST Office Visit [facility] [address] [place] [address] Catarina Samayoa MD Localized swelling of left [...] Passive Smoke Exposure: Never Smokeless Tobacco: Never Tobacco Cessation:Counseling Given: [...] Sign Reading Time Taken Comments Blood Pressure 140/70 10/26/2024 9:40 AM EST Pulse 92 10/26/2024 9:40 AM EST Temperature 36.2 ??C (97.1 ??F) 10/26/2024 9:40 AM ES T Respiratory Rate 20 10/26/2024 9:40 AM EST Oxygen Saturation 97% 08/17/2024 11:13 AM EST Inhaled Oxygen Concentration - - Weight 76.3 kg (168 lb 4 oz) 10/26/2024 9:40 AM EST Height 182.9 cm (6') 10/26/2024 9:40 AM EST Body Mass Index 22.82 10/26/2024 9:40 AM EST Plan of Treatment Upcoming Encounters Date Type Department Care Team (Late st Contact Info) Description 11/04/2024 11:00 AM EST Clinical Support [address] [address] 12/25/2024 1:00 PM EDT Office Visit [facility] [address] [place] [phone] Joppa Maritza, [facility] [address] [place] [address] Health Maintenance Due Date Last Done Comments [...] Additional history exists Eye Exam 07/08/2025 07/08/2024 Diabetes: Urine Protein Screening 10/08/2025 10/08/2024, 04/17/2023, 11/21/2021, Additional history exists Lipid Panel 10/08/2025 10/08/2024, 02/01, 02/21/2023, Additional history exists SDOH Screening 10/12/2025 10/12/2024 Tobacco Screening 10/26/2025 10/26/2024 DTaP/Tdap/Td Vaccines (3 - Td or Tdap) 04/25/2030 04/25/2020, 11/23/2013 Meningococcal Vaccine Aged Out 06/09/2014 No terrell warren eligible based on patient's age to complete this topic Zoster Vaccines Completed 07/21/2020, 07/03, 05/19/2020, Additional [...] Name Priority Date/Time Associated Diagnosis Comments POCT GLUCOSE Routine 10/26/2024 9:44 AM EST Type 2 diabetes mellitus with hyperglycemia, without long-term current use of insulin ([facility]) SED RATE BY MODIFIED WESTERGREN Routine 10/16/2024 6:20 PM EST LACTIC ACID [...] to Health Maintenance Results * (ABNORMAL) POCT Glucose (10/26/2024 9:44 AM EST) Only the most recent of2 resultswithin the time period is included. Pathologist [facility] Glucose Blood, POC 233(A) 60 - 200 mg/dL QC Media Lot # [id number] Lot# Expiration Date [id number] Blood Capillary blood specimen / Unknown 10/26/2024 9:44 AM EST [facility] POINT OF CARE TEST ENTER/EDIT ORDERABLES Final Result * (ABNORMAL) CBC auto differential (10/16/2024 6:20 PM EST) Only the most recent of2 resultswithin the time period is included. [facility] White Blood Count 4.7(L) 4.8 - 10.8 X10*3/uL [facility] Red Blood Count 4.68 4.60 - 5.80 X10*6/uL [facility] Hemoglobin 13.0(L) 14.0 - 18.0 g/dl [facility] Hematocrit 39.0(L) 42.0 - 52.0 % [facility] Mean Corpuscular Volume 83.3 80.0 - 98.0 fL [facility] Mean Corpuscular Hemoglobin 27.8 27.0 - 33.0 pg [facility] Mean Corpuscular HGB Conc 33.3 31.0 - 36.0 g/dl [facility] Red Cell Distribution Width 12.1 11.0 - 16.0 % [facility] Platelet Count 233 160 - 400 X10*3/uL [facility] Mean Platelet Volume 9.1(L) 9.4 - 12.4 fL [facility] Neutrophils Percent Auto 70.8 45 - 73 % [facility] Imm Gran Pct Auto 0.2 0.0 - 0.4 % [facility] Lymphocytes Percent Auto 19.7(L) 20 - 40 % [facility] Monocytes Percent Auto 7.0 2 - 11 % [facility] Eosinophils Percent Auto 2.1 0 - 4 % [facility] Basophils Percent Auto 0.2 0 - 2 % [facility] NRBC Pct Auto 0.0 0.0 - 0.2 /100WBC [facility] Neutrophils Absolute Auto 3.3 2.0 - 8.3 x10*3/uL [facility] Imm Gran Abs Auto 0.01 0.00 - 0.03 X10*3/uL [facility] Lymphocytes Absolute Auto 0.9(L) 1.2 - 4.9 X10*3/uL [facility] Monocytes Absolute Auto 0.3 0.1 - 1.2 X10*3/uL [facility] Eosinophils Absolute Auto 0.1 0.0 - 0.4 X10*3/uL [facility] Basophils Absolute Auto 0.0 0.0 - 0.2 X10*3/uL [facility] NRBC Abs Auto 0.000 0.0 - 0.012 X10*3/uL [facility] 10/16/2024 6:20 PM EST 10/16/2024 6:27 PM EST [employer] External Data Provider LAB BLOOD ORDERAB LES Final Result [facility] [address] [place] [address] [phone] * (ABNORMAL) Sed Rate by Modified Tommieren (10/16/2024 6:20 PM EST) Only the most recent of2 resultswithin the time period is included. Erythrocyte Sedimentation Rate 54(H) 0 - 15 MM/HR [facility] Comment:Patients with polycy themia and many hemoglobin abnormalitiesmay have depressed sed rates whereas patients with anemiamay have elevated sed rates. 10/16/2024 6:20 PM EST 10/16/2024 6:27 PM EST us Generic External Data Provider LAB BLOOD ORDERAB LES Final Result Performing Organization Address [facility] Co de Phone Number [facility] [address] [place] [phone] * (ABNORMAL) C-reactive Protein (10/16/2024 6:20 PM EST) Only the most recent of2 resultswithin the time period is included. C Reactive Protein 1.74(H) < or = 0.50 mg/dL [facility] 10/16/2024 6:20 PM EST 10/16/2024 6:27 PM EST us Generic External Data Provider LAB BLOOD ORDERAB LES Final Result Performing Organization Address [facility] Co de Phone Number [facility] [address] [place] [phone] * Lipase (10/16/2024 6:20 PM EST) Lipase 25 8 - 78 U/L [facility] 10/16/2024 6:20 PM EST 10/16/2024 6:27 PM EST us Generic External Data Provider LAB BLOOD ORDERAB LES Final Result Performing Organization Address [facility] Co de Phone Number [facility] [address] [place] [phone] * Lactic Acid (10/16/2024 6:20 PM EST) Lactic Acid 1.0 0.5 - 2.0 mmol/L [facility] 10/16/2024 6:20 PM EST 10/16/2024 6:27 PM EST us Generic External Data Provider LAB BLOOD ORDERAB LES Final Result Performing Organization Address [facility] Co de Phone Number [facility] [address] [place] [phone] * (ABNORMAL) Comprehensive Metabolic Panel (10/16/2024 6:20 PM EST) Only the most recent of2 resultswithin the time period is included. Sodium 136 135 - 145 mmol/L [facility] Potassium 4.0 3.3 - 5.1 mmol/L [facility] Chloride 100 96 - 108 mmol/L [facility] Carbon Dioxide 28 22 - 29 mmol/L [facility] Anion Gap 12 12 - 20 [facility] Urea Nitrogen (BUN) 14 9 - 16 mg/dL [facility] Creatinine, Serum 1.24 0.5 - 1.4 mg/dL [facility] Creatinine Clr Calc Pharmacy 63.5 [facility] Comment:eGFR (calculated fro m the MDRD study equation) and eCrCl(calculated from the Cockcroft-Gault equation) are based ondifferent parameters and may not yield comparable results.If eCrCl result is absurd, please check patient'sheight/weight. Estimated Glomerular Filt Rate 59 [facility] Comment:Chronic Kidney Disea se: Estimated GFR < 60 mL/min/1.66q4Uemedk Kidney Disease: Estimated GFR < 15 mL/min/1.73m2 Glucose 248(H) 60 - 115 mg/dL [facility] Calcium 10.0 8.4 - 10.2 mg/dL [facility] Bilirubin, Total 0.3 0.0 - 1.0 mg/dL [facility] Aspartate Amino Transferase 21 5 - 37 U/L [facility] Alanine Aminotransferase 16 0 - 40 U/L [facility] Total Protein 8.8(H) 6.5 - 8.0 g/dL [facility] Albumin Level 4.4 3.5 - 5.0 g/dL [facility] Alkaline Phosphatase 78 39 - 117 U/L [facility] 10/16/2024 6:20 PM EST 10/16/2024 6:27 PM EST us Generic External Data Provider LAB BLOOD ORDERAB LES Final Result [facility] [address] [place] [phone] * MR Foot w and w/o Contrast Left (10/14/2024 2:44 PM EST) Anatomical Region Laterality Modality Lower Extremities, Foot Left Magnetic Resonance 10/14/2024 2:44 PM EST Narrative 10/14/2024 4:35 PM EST ? [facility] ?[address] ?[place] [address] ? Magnetic Resonance Report ? Signed ? Patient: Octavio Hardin,Andrea ?MR#: [id number] ?? [id number] ? : 1960 ?Acct:[id number] ? Age/Sex: 63 / M ?ADM Date: 10/14/24 ? Loc: HO.MRI ? Attending Dr: Maritza CORONADO ? Ordering Physician: Maritza Alfonso ?? Date of Service: 10/14/24 ?? Procedure(s): MR foot LT wo/w con ?? Accession Number(s): [id number] ? cc: Maritza Alfonso ? EXAMINATION: ?? MR FOOT WITHOUT AND [...] DD/ 1444 ? TD/TT: 10/14/24 1545 ? Engineering And Operations Director: ? Procedure Note Stan, Image - 10/14/[address] [address] Magnetic Resonance Report Signed Patient: Néstor Chamorro LMR#: [id number] : 1Acct:[id number] Age/Sex: 63 / MADM Date: 10/14/24 Loc: HO.MRI Attending Dr: Maritza CORONADO Ordering Physician: Maritza Alfonso Date of Service: 10/14/24 Procedure(s): MR foot LT wo/w con Accession Number(s): [id number] cc: Maritza Alfonso STAPLER MACHINE EXAMINATION: MR FOOT WITHOUT AND WITH CONTRAST, [...] 10/14/24 1632 DD/ 1444 TD/TT: 10/14/24 1545 Engineering And Operations Director: [facility] IMG MRI PROCEDURES Final Resu lt * Albumin, Random Urine W/Creatinine (10/08/2024 9:55 AM EST) Creatinine, Urine 98.17 mg/dL [facility] Microalbumin Urine 20.0 mg/L [facility] Microalbum Creatinine Ratio Ur 20.3 <30 ug/mg cr [facility] Comment:Albumin/Creatinine R atio Reference Ranges: Normal: < 30 ug/mg creatinine Microalbuminuria: 30 - 300 ug/mg creatinineClinical Albuminuria: > 300 ug/mg creatinine Urine 10/08/2024 9:55 AM EST 10/08/2024 10:32 AM EST [facility] LAB URINE ORDERABLES Final Re sult [facility] [address] [place] [phone] * Lipid Panel, Standard (10/08/2024 9:55 AM EST) Triglycerides 51 <150 mg/dL [facility] Comment:Desirable Triglyceri de: less than 150 mg/dLBorderline High Triglyceride 150-199 mg/dLHigh Triglyceride: 200-499 mg/dLVery High Triglyceride: greater than or equal to 5OO mg/dL Cholesterol 153 <200 mg/dL [facility] Comment:Desirable Cholestero l: less than 200 mg/dLBorderline High Cholesterol: 200-239 mg/dLHigh Cholesterol: greater than 239 mg/dL LDL Cholesterol Calculated 91 <100 mg/dL [facility] Comment:Desirable LDL: less than 100 mg/dLNear Optimal/Above Optimal LDL: 110- 129 mg/dLBorderline High LDL: 130-159 mg/dLHigh LDL: 160-189 mg/dLVery High LDL: greater than or equal to 190 mg/dL HDL Cholesterol 52 >40 mg/dL [facility] Comment:Desirable HDL: great er than 40 mg/dL Note: This HDL assay may give artificially low results in patients with liver disease. Blood Venous blood specimen / Unknown 10/08/2024 9:55 AM EST 10/08/2024 9:55 AM EST [facility] LAB BLOOD ORDERABLES Final Re sult [facility] [address] [place] [phone] * (ABNORMAL) POCT HGB A1C (10/07/2024 11:04 AM EST) Hemoglobin A1C 8.5(A) 4.0 - 6.0 % Blood 10/07/2024 11:0 4 AM EST [facility] STAPLER MACHINE POINT OF CARE TEST ENTER/EDIT ORDERABLES Final Result * XR Foot 3+ Views Left (08/13/2024 11:46 AM EST) Anatomical Region Laterality Modality Lower Extremities, Foot Left Radiogra phic Imaging 08/13/2024 11:4 6 AM EST Narrative 10/02/2024 9:19 AM EST ?[facility] ?[address] ?[place] [address] ?XRay Report ? Signed ? Patient: Octavio Hardin,Andrea ?MR#: [id number] ?? [id number] ? : 1960 ?Acct:[id number] ? Age/Sex: 63 / M ?ADM Date: 08/13/24 ? Loc: HO.HHCX ? Attending Dr: Catarina Samayoa MD ? Ordering Physician: Catarina Samayoa MD ?? Date of Service: 08/13/24 ?? Procedure(s): XR foot LT min 3V ?? Accession Number(s): [id number] ? cc: Catarina Samayoa MD; Maritza Alfonso [facility] ? EXAMINATION: ?? XR FOOT LEFT ? [...] DD/ 1146 ? TD/TT: 08/13/24 1148 ? Engineering And Operations Director: ? Procedure Note Donotuseinterpreter, Image - 10/02/[address] [facility] [address] [place] [address] XRay Report Signed Patient: Néstor Chamorro LMR#: [id number] : 1960cct:[id number] Age/Sex: 63 / MADM Date: 08/13/24 Loc: HO.HHCX Attending Dr: Catarina Samayoa MD Ordering Physician: Catarina Samayoa MD Date of Service: 08/13/24 Procedure(s): XR foot LT min 3V Accession Number(s): [id number] cc: Catarina Samayoa MD; [facility] EXAMINATION: XR FOOT LEFT CLINICAL [...] Gillette MD Signed By: <Electronically signed by Sma Gillette MD in OV> 10/02/24 0916 DD/ 1146 TD/TT: 08/13/24 1148 Engineering And Operations Director: SR Catarina Samayoa MD IMG XR PROCEDURES Final Re sult * Referral to Optometry (07/08/2024) [facility] OUTPATIENT REFERRAL ORDERABLE S Final Result * HEPATITIS C AB W/REFL TO HCV RNA, QN, PCR (05/24/2022 11:27 AM EDT) HEPATITIS C ANTIBODY NON-REACT ALICIA NON-REACT ALICIA [facility] INDEX 0.06 <1.00 [facility] Comment: ?? HCV antibody was non-reactive. There is no laboratory ?? evidence of HCV infection. ?? In most cases, no further action is required. However, if recent HCV exposure is suspected, a test for HCV RNA (test code 15375) is suggested. ?? For additional information please refer to http://Work4ce.me.CogniTens/faq/LDC62k1 (This link is being provided for informational/ educational purposes only.) ?? 05/24/2022 11:2 7 AM EDT [facility] HISTORICAL/NON ORDERABLE LABS Final Result [facility] [address] * HIV 1/2 ANTIGEN/ANTIBODY,FOURTH GENERATION W/RFL (05/24/2022 11:27 AM EDT) HIV-1/2 ANTIGEN AND ANTIBODIES, 4TH GENERATION W/ REFLEX NON-REACT ALICIA NON-REACT ALICIA [facility] Comment: HIV-1 antigen and HIV-1/HIV-2 [...] ? For additional information please refer to http://education.[employer].LaunchSide.com/faq/ZPC458 (This link is being provided for informational/ educational purposes only.) ? The performance of this assay has not been clinically validated in patients less than 2 years old. ?? 05/24/2022 11:2 7 AM EDT [facility] [employer]ACHINE LAB BLOOD ORDERABLES Final Re sult [facility] [address] * Colonoscopy (12/28/2013) Colonoscopy performed Historical Provider MD HEALTH MAINTENANCE Final Result from Last 3 Months or Most Recently Relevant to Health Maintenance Insurance [place] [address] [place] [phone] [facility] STAND AD[place] Care Teams Campus Police Officer Relationship Specialty Start Date End Date Maritza Alfonso FNP [address] [place] [address] [place] [address] PCP - General Family Medicine 05/24/22
--- OUTSIDE RECORDS SUMMARY | 2024-10-27 15:29 | XMS_ITS | Encounter Summary ---
Author Organization [employer] Address [address] [facility] 7t [place] [address] Care Team Providers Care Media Liaison Officer Name Role Phone [facility] Primary Care Provider [phone] Reason for Visit * Reason Comments Follow-up Diabetes Encounter Details Date Type Department Care Team ([facility] st Contact Info) Description 10/26/2024 9:45 AM EST Office Visit [facility] [address] [place], [place] [phone] [facility] 230 [place] [address] Type 2 diabetes mellitus with hyperglycemia, without long-term current use of insulin ([facility]) (Primary Dx); Nausea; Osteomyelitis of left foot, unspecified type ([facility]) Social History Tobacco Use Types Packs/Day Years [...] 20 10/26/2024 9:40 AM EST Oxygen Saturation - - Inhaled Oxygen Concentration - - Weight 76.3 kg (168 lb 4 oz) 10/26/2024 9:40 AM EST Height 182.9 cm (6') 10/26/2024 9:40 AM EST Body Mass Index 22.82 10/26/2024 9:40 AM EST documented in this encounter Plan of Treatment Upcoming Encounters Date Type Department Care Team (Late st Contact Info) Description 11/04/2024 11:00 AM EST Clinical Support [address] [address] 12/25/2024 1:00 PM EDT Office Visit [facility] [address] [facility] [place] [address] [facility] [address] [place] [address] documented as of this encounter Procedures Procedure Name Priority Date/Time Associated Diagnosis Comments POCT GLUCOSE Routine 10/26/2024 9:44 AM EST Type 2 diabetes mellitus with hyperglycemia, without long-term current use of insulin ([facility]) documented in this encounter Results * (ABNORMAL) POCT Glucose (10/26/2024 9:44 AM EST) [facility] Glucose Blood, POC 233(A) 60 - 200 mg/dL QC Media Lot # [id number] Lot# Expiration Date Blood Capillary blood specimen / Unknown 10/26/2024 9:44 AM EST Result [facility] POINT OF CARE TEST ENTER/EDIT ORDERABLES Final Result documented in this encounter Visit Diagnoses Diagnosis Type 2 diabetes mellitus with hyperglycemia, without long-term current use of insulin ([facility])- Primary Nausea Nausea alone Osteomyelitis of left foot, unspecified type ([facility]) documented in this encounter Additional Health Concerns Assessment Noted Time PHQ-9 Depression Total Score: 0 01/15/20 24 9:49 AM EDT documented as of this encounter Care Teams Media Liaison Officer Relationship Specialty Start Date End Date Maritza Alfonso FNP [address] [facility] [place] [address] PCP - General Family Medicine 05/24/22 documented as of this encounter
--- OUTSIDE RECORDS SUMMARY | 2024-10-27 15:29 | XMS_ITS | Encounter Summary ---
Author Organization [employer] Address [address] [facility] [address] 7t [place] [address] Care Team Providers Care Conveyor Feeder Offbearer Name Role Phone [facility] Primary Care Provider [phone] Encounter Details Date Type Department Care Team [...] Description 11/04/2024 11:00 AM EST Clinical Support [address] [address] 12/25/2024 1:00 PM EDT Office Visit [facility] [address] [place] [address] Maritza Alfonso FNP [address] [place] [address] documented as of this encounter Visit Diagnoses Not on filedocumented in this encounter Additional Health Concerns Assessment Noted Time PHQ-9 Depression Total Score: 0 01/15/20 24 9:49 AM EDT documented as of this encounter Care Teams Conveyor Feeder Offbearer Relationship Specialty Start Date End Date Maritza Alfonso FNP [address] [place] [address] PCP - General Family Medicine 05/24/22 documented as of this encounter
--- OUTSIDE RECORDS SUMMARY | 2024-10-27 15:29 | XMS_ITS | Encounter Summary ---
Author Organization [employer] Address [address] 7t [place] [address] Care Team Providers Care Senior Ux Developer Name Role Phone [facility] Primary Care Provider [phone] Reason for Visit * Reason Onset Date Comments Results 10/02/2024 Encounter Details Date Type Department Care Team ([facility] st Contact Info) Description 10/02/2024 Telephone [facility] 230 [place], [place] [phone] Rosa Solano RN 230 [place] [address] Results Social History Tobacco Use Types Packs/Day [...] Telephone Encounter - Rosa Solano RN - 10/27/2024 9:23 AM EST Pt did see PCP yesterday. Pt to follow up with Red Team * Telephone Encounter - Rosa Solano RN [...] Description 11/04/2024 11:00 AM EST Clinical Support [address] [address] 12/25/2024 1:00 PM EDT Office Visit [facility] [address] [facility] [address] Maritza Alfonso FNP [address] [facility] [address] documented as of this encounter Visit Diagnoses Not on filedocumented in this encounter Additional Health Concerns Assessment Noted Time PHQ-9 Depression Total Score: 0 01/15/20 24 9:49 AM EDT documented as of this encounter Care Teams Senior Ux Developer Relationship Specialty Start Date End Date Maritza Alfonso FNP [address] [place] [address] PCP - General Family Medicine 05/24/22 documented as of this encounter
--- OUTSIDE RECORDS SUMMARY | 2024-10-27 15:29 | XMS_ITS | Encounter Summary ---
Author Organization [employer] Address [address] [facility] [address] 7t [place] [address] Care Team Providers Care Material Damage Appraiser Name Role Phone [facility] Primary Care Provider [phone] Encounter Details Date Type Department Care Team ([facility] st Contact Info) Description 10/16/2024 Telephone [facility] 230 [place], [place] [phone] [facility] 230 [place] [address] Social History Tobacco Use Types Packs/Day Years [...] 10/16/2024 3:56 PM EST T/C [place] to [facility] [place] per request of Maritza Alfonso PRETZEL TWISTING MACHINE OPERATOR to advise that pt will present to [...] Description 11/04/2024 11:00 AM EST Clinical Support [facility] [address] [place] [address] 12/25/2024 1:00 PM EDT Office Visit [facility] [address] [place] [address] Maritza Alfonso FNP 230 [place] [address] documented as of this encounter Visit Diagnoses Not on filedocumented in this encounter Additional Health Concerns Assessment Noted Time PHQ-9 Depression Total Score: 0 01/15/20 24 9:49 AM EDT documented as of this encounter Care Teams Material Damage Appraiser Relationship Specialty Start Date End Date Maritza Alfonso FNP [address] [place] [address] PCP - General Family Medicine 05/24/22 documented as of this encounter
--- OUTSIDE RECORDS SUMMARY | 2024-10-27 15:29 | XMS_ITS | Encounter Summary ---
Author Organization [employer] Address [address] [facility] 7t [place] [address] Care Team Providers Care Feed Miller Name Role Phone [facility] Primary Care Provider [phone] Reason for Visit * Reason Onset Date Comments MRI FOOT ORDER 10/07/2024 Encounter Details Date Type Department Care Team ([facility] st Contact Info) Description 10/07/2024 Telephone [facility] 230 [place] [address] [facility] 230 [place] [address] MRI FOOT ORDER Social History Tobacco Use [...] 10/07/2024 4:11 PM EST Incoming fax from [facility] Order needs to be with & without contrast documented in this encounter Plan of Treatment Upcoming Encounters Date Type Department Care Team (Late st Contact Info) Description 11/04/2024 11:00 AM EST Clinical Support [facility] [address] [place] [address] 12/25/2024 1:00 PM EDT Office Visit [facility] 230 [place] [address] Maritza Alfonso FNP [address] [place] [address] documented as of this encounter Visit Diagnoses Not on filedocumented in this encounter Additional Health Concerns Assessment Noted Time PHQ-9 Depression Total Score: 0 01/15/20 24 9:49 AM EDT documented as of this encounter Care Teams Feed Miller Relationship Specialty Start Date End Date Maritza Alfonso FNP 230 [place] [address] PCP - General Family Medicine 05/24/22 documented as of this encounter
== END 2024-10-27 12:46 | disposition home or self-care (01) ==
LOC: HO.HVNA 12:45
PROVIDERS: Visit Provider Internal Medicine
DX: M86.172 Other acute osteomyelitis, left ankle and foot (principal)
CPT/HCPCS: 36415; 80048; 85025

== ENCOUNTER 2024-11-03 15:25 | Outpatient (REF) | payer MEDICARE, MEDICAID, SELFPAY ==
[2024-11-03 15:28] LABS: MANUAL DIFF FLAG NO
[2024-11-03 15:50] LABS: Basophils Percent Auto 0.5 % (0-2); Eosinophils Absolute Auto 0.1 X10*3/uL (0.0-0.4); Eosinophils Percent Auto 2.3 % (0-4); Hematocrit 40.5 % (42.0-52.0); Hemoglobin 13.1 g/dl (14.0-18.0); Imm Gran Abs Auto 0.01 X10*3/uL (0.00-0.03); Imm Gran Pct Auto 0.3 % (0.0-0.4); Lymphocytes Absolute Auto 1.2 X10*3/uL (1.2-4.9); Lymphocytes Percent Auto 30.5 % (20-40); Mean Corpuscular HGB Conc 32.3 g/dl (31.0-36.0); Mean Corpuscular Hemoglobin 27.4 pg (27.0-33.0); Mean Corpuscular Volume 84.7 fL (80.0-98.0); Mean Platelet Volume 9.6 fL (9.4-12.4); Monocytes Absolute Auto 0.4 X10*3/uL (0.1-1.2); Monocytes Percent Auto 9.6 % (2-11); Neutrophils Absolute Auto 2.2 x10*3/uL (2.0-8.3); Neutrophils Percent Auto 56.8 % (45-73); Platelet Count 213 X10*3/uL (160-400); Red Blood Count 4.78 X10*6/uL (4.60-5.80); Red Cell Distribution Width 12.6 % (11.0-16.0); White Blood Count 3.9 X10*3/uL (4.8-10.8)
[2024-11-03 16:17] LABS: Anion Gap 13 (12-20); Blood Urea Nitrogen 20 mg/dL (9-16); Calcium 10.1 mg/dL (8.4-10.2); Carbon Dioxide 24 mmol/L (22-29); Chloride 106 mmol/L (96-108); Estimated Glomerular Filt Rate > 60; Glucose Random 156 mg/dL (60-115); Potassium 4.5 mmol/L (3.3-5.1); Sodium 138 mmol/L (135-145)
--- OUTSIDE RECORDS SUMMARY | 2024-11-03 19:32 | XMS_ITS | Encounter Summary ---
Author Organization [employer] Address [address] [facility] [address] 7t [place] [address] Care Team Providers Care Records And Information Manager Name Role Phone [facility] Primary Care Provider [phone] Encounter Details Date Type Department Care Team [...] Care Team (Late st Contact Info) Description 12/25/2024 1:00 PM EDT Office Visit [facility] MEDIC[facility] 230 [place] [address] Maritza Alfonso FNP 230 [place] [address] documented as of this encounter Visit Diagnoses Not on filedocumented in this encounter Additional Health Concerns Assessment Noted Time PHQ-9 Depression Total Score: 0 01/15/20 24 9:49 AM EDT documented as of this encounter Care Teams Records And Information Manager Relationship Specialty Start Date End Date Maritza Alfonso FNP [address] [place] [address] PCP - General Family Medicine 05/24/22 [facility] documented as of this encounter
--- OUTSIDE RECORDS SUMMARY | 2024-11-03 19:32 | XMS_ITS | Encounter Summary ---
Author Organization [facility] Address [address] [place] [address] Phone Care Team Providers Care News Technical Director Name Role Phone [facility] Primary Care Provider [phone] Encounter Details Date Type Department Care Team (Late Contact Info) Description 10/25/2023 Documentation Only [facility] [address] [place] [address] Diane [place] [address] [place] [address] Social History Tobacco Use Types [...] Visit [facility] [address] [place] [address] Mick Badillo MD [address] [place] [address] [place] [address] documented as of this encounter Visit Diagnoses Not on filedocumented in this encounter Care Teams News Technical Director Relationship Specialty Start Date End Date [facility] 230 [place], [place] [phone] PCP - General 06/26/22 documented as of this encounter
--- OUTSIDE RECORDS SUMMARY | 2024-11-03 19:32 | XMS_ITS | Encounter Summary ---
Author Organization [employer] Address [address] [facility] 7t [place] [address] Care Team Providers Care Velvet Cutter Name Role Phone [facility] Primary Care Provider [phone] Reason for Visit * Reason Onset Date Comments Prior Authorization 10/30/2024 Plan of care 10/30/2024 Encounter Details Date Type Department Care Team ([facility] st Contact Info) Description 10/30/2024 Telephone [facility] MEDICINE 230 [place] [address] [facility] 230 [place] [address] Prior Authorization; Plan of care Social History Tobacco Use Types Packs/Day Years [...] the past 12 months, has t he [employer], gas, oil or water [employer] threatened to shut off services in your [...] encounter Miscellaneous Notes * Telephone Encounter - Yun Workman RN - 11/02/2024 10:06 AM EST TC to pt to relay message from provider as per below. Using BIS ID # [id number], all directions reviewedwith pt. Pt confirmed understanding to not take doxcycline until 11/14/24 the day after the daptomcyin is scheduled to stop per [facility] [place] note from 10/20/24. He confirms he is going to the wound clinicon 11/10/24, and has an OV with ID at [facility] on 11/11/24. He is aware there is a pending referral to as well. He denies any questions or concerns at this time and confirms he has [facility] contact info if needed. [facility] Red Team Nurses Please advise patient that I consulted with infectious disease who recommended that once he has completed his IV antibiotics he should begin to take oral doxycycline 1 tablet twice daily for 1 month.I sent in the prescription however he should NOT START until he has completed the daptomycin course. I also placed a referral for him to follow-up outpatient with Dr. Bryant in infectious disease. Thank you! FROM [facility] DC instructions 10/20/24: Discharge Anticipated Discharge Date/Time: 10/20/24 14:01 Patient Disposition: Home Health Service Discharge Diagnosis: Osteomyelitis Referrals: [facility] [Other] - 1 Week [facility] [Outside] - [facility] [place] [facility] [Primary Care Provider] - 1 Week Discharge Medications: New daptomycin 500 mg recon soln 437 mg IV Q24H Rx Instructions: IV push 10/16/24 22:07 Consult to Infectious Diseases Routine Consulting Provider: [facility] Reason for consultation: left foot osteomyelitis 10/18/24 13:25 Consult to Wound Care Routine Reason for consultation: left foot wound DS: Diagnosis Discharge Diagnosis (1) Osteomyelitis of great toe of left foot: Status: Acute Topical Wound Care Recommendations: Left Medial Foot - Cleanse with NS pat dry. apply skin prep. Cover wound bed with Durafiber AG, cover with dry gauze dressing change every other day. Recommend follow up out patient Wound Clinic at [address] [place] [phone] and to call for an appointment at time of discharge. [phone].? Care Plan Goals: >>Daptomycin via PICC line for osteomyelitis end date 11/13/2024. <<< RN may remove PICC line after last dose. Health Concerns: Osteomyelitis Plan of Treatment: Follow-up with primary care provider as needed Take all medications as prescribed Assessment: See discharge summary Discharge Date/Time: 10/20/24 17:26 Dictated By: < * Telephone Encounter - Willard Siddiqui - 10/30/2024 3:27 PM EST Tc from pt requesting a PA for : Blood Glucose Monitoring Suppl (GNP Easy Touch Glucose Meter) device Blood Glucose Monitoring Suppl (True Metrix Meter) w/Device kit documented in this encounter Plan of Treatment Upcoming Encounters Date Type Department Care Team (Late st Contact Info) Description 12/25/2024 1:00 PM EDT Office Visit [facility] MEDICINE 230 [place] [address] Maritza Alfonso FNP 230 [place] [address] documented as of this encounter Visit Diagnoses Not on filedocumented in this encounter Additional Health Concerns Assessment Noted Time PHQ-9 Depression Total Score: 0 01/15/20 24 9:49 AM EDT documented as of this encounter Care Teams Velvet Cutter Relationship Specialty Start Date End Date Maritza Alfonso FNP [address] [place] [address] PCP - General Family Medicine 05/24/22 [facility] 10/21/24 documented as of this encounter
--- OUTSIDE RECORDS SUMMARY | 2024-11-03 19:32 | XMS_ITS | Encounter Summary ---
Author Organization [employer] Address [address] [facility] [address] 7t [place] [address] Care Team Providers Care Faceter Name Role Phone [facility] Primary Care Provider [phone] Reason for Visit * Reason Onset Date Comments Referral 07/03/2024 Encounter Details Date Type Department Care Team ([facility] st Contact Info) Description 07/03/2024 Telephone [facility] MEDICINE 230 [place], [place] [phone] [facility] 230 [place] [address] Referral Social History Tobacco Use Types Packs/Day [...] Y/N: Yes Provider name or facility name: [facility] Escort needed: Y/N: No Do you have a wheelchair: Y/N: No If yes- Manual or electric: Visits: (amount of visits) ( x monthly, weekly, daily) documented in this encounter Plan of Treatment Upcoming Encounters Date Type Department Care Team ([facility] st Contact Info) Description 12/25/2024 1:00 PM EDT Office Visit [facility] 230 [place] [address] Maritza Alfonso FNP 230 [place] [address] documented as of this encounter Visit Diagnoses Not on filedocumented in this encounter Additional Health Concerns Assessment Noted Time PHQ-9 Depression Total Score: 0 01/15/20 9:49 AM EDT documented as of this encounter Care Teams Faceter Relationship Specialty Start Date End Date Maritza Alfonso FNP [address] [place] [address] [place] [address] PCP - General Family Medicine 05/24/22 [facility] 10/21/24 documented as of this encounter
--- OUTSIDE RECORDS SUMMARY | 2024-11-03 19:32 | XMS_ITS | Encounter Summary ---
Author Organization [employer] Address [address] 7[address] [place] [address] Care Team Providers Care Painter Touch Up Name Role Phone [facility] Primary Care Provider [phone] Encounter Details Date Type Department Care Team [...] Description 12/25/2024 1:00 PM EDT Office Visit [facility] MED[facility] 230 [place], [place] [phone] [facility] 230 [place] [address] documented as of this encounter Procedures Procedure [...] Rate 54(H) 0 - 15 MM/HR [facility] Comment:Patients with polycy themia and many hemoglobin abnormalitiesmay have depressed sed rates whereas patients with anemiamay have elevated sed rates. 10/16/2024 6:20 PM EST 10/16/2024 6:27 PM EST Generic External Data Provider LAB BLOOD ORDERAB LES Final Result Performing Organization Address [facility] Phone Number [facility] [address] [place] [phone] * Lactic Acid (10/16/2024 6:20 PM EST) Lactic Acid 1.0 0.5 - 2.0 mmol/L [facility] 10/16/2024 6:20 PM EST 10/16/2024 6:27 PM EST Generic External Data Provider LAB BLOOD ORDERAB LES Final Result Performing Organization Address [facility] ar Phone Number [facility] [address] [place] [phone] * Lipase (10/16/2024 6:20 PM EST) Lipase 25 8 - 78 U/L [facility] 10/16/2024 6:20 PM EST 10/16/2024 6:27 PM EST Generic External Data Provider LAB BLOOD ORDERAB LES Final Result Performing Organization Address [facility] Phone Number [facility] [address] [place] [phone] * (ABNORMAL) C-reactive Protein (10/16/2024 6:20 PM EST) C Reactive Protein 1.74(H) < or = 0.50 mg/dL [facility] 10/16/2024 6:20 PM EST 10/16/2024 6:27 PM EST us Generic External Data Provider LAB BLOOD ORDERAB LES Final Result [facility] [address] [place] [address] [phone] * (ABNORMAL) Comprehensive Metabolic Panel (10/16/2024 6:20 PM EST) Sodium 136 135 - 145 mmol/L [facility] Potassium 4.0 3.3 - 5.1 mmol/L [facility] Chloride 100 96 - 108 mmol/L [facility] Carbon Dioxide 28 22 - 29 mmol/L [facility] Anion Gap 12 12 - 20 [facility] Urea Nitrogen (BUN) 14 9 - 16 mg/dL [facility] Creatinine, Serum 1.24 0.5 - 1.4 mg/dL [facility] Creatinine Clr Calc Pharmacy 63.5 [facility] Comment:eGFR (calculated fro m the MDRD study equation) and eCrCl(calculated from the Cockcroft-Gault equation) are based ondifferent parameters and may not yield comparable results.If eCrCl result is absurd, please check patient'sheight/weight. Estimated Glomerular Filt Rate 59 [facility] Comment:Chronic Kidney Disea se: Estimated GFR < 60 mL/min/1.57s7Drmgqt Kidney Disease: Estimated GFR < 15 mL/min/1.73m2 Glucose 248(H) 60 - 115 mg/dL [facility] Calcium 10.0 8.4 - 10.2 mg/dL [facility] Bilirubin, Total 0.3 0.0 - 1.0 mg/dL [facility] Aspartate Amino Transferase 21 5 - 37 U/L [facility] Alanine Aminotransferase 16 0 - 40 U/L [facility] Total Protein 8.8(H) 6.5 - 8.0 g/dL [facility] Albumin Level 4.4 3.5 - 5.0 g/dL [facility] Alkaline Phosphatase 78 39 - 117 U/L [facility] 10/16/2024 6:20 PM EST 10/16/2024 6:27 PM EST us Generic External Data Provider LAB BLOOD ORDERAB LES Final Result [facility] [address] [place] [address] [phone] * (ABNORMAL) CBC auto differential (10/16/2024 6:20 PM EST) White Blood Count 4.7(L) 4.8 - 10.8 X10*3/uL [facility] Red Blood Count 4.68 4.60 - 5.80 X10*6/uL [facility] Hemoglobin 13.0(L) 14.0 - 18.0 g/dl [facility] Hematocrit 39.0(L) 42.0 - 52.0 % [facility] Mean Corpuscular Volume 83.3 80.0 - 98.0 fL [facility] Mean Corpuscular Hemoglobin 27.8 27.0 - 33.0 pg [facility] Mean Corpuscular HGB Conc 33.3 31.0 - 36.0 g/dl [facility] Red Cell Distribution Width 12.1 11.0 - 16.0 % [facility] Platelet Count 233 160 - 400 X10*3/uL [facility] Mean Platelet Volume 9.1(L) 9.4 - 12.4 fL [facility] Neutrophils Percent Auto 70.8 45 - 73 % [facility] Imm Gran Pct Auto 0.2 0.0 - 0.4 % [facility] Lymphocytes Percent Auto 19.7(L) 20 - 40 % [facility] Monocytes Percent Auto 7.0 2 - 11 % [facility] Eosinophils Percent Auto 2.1 0 - 4 % [facility] Basophils Percent Auto 0.2 0 - 2 % [facility] NRBC Pct Auto 0.0 0.0 - 0.2 /100WBC [facility] Neutrophils Absolute Auto 3.3 2.0 - 8.3 x10*3/uL [facility] Imm Gran Abs Auto 0.01 0.00 - 0.03 X10*3/uL [facility] Lymphocytes Absolute Auto 0.9(L) 1.2 - 4.9 X10*3/uL [facility] Monocytes Absolute Auto 0.3 0.1 - 1.2 X10*3/uL [facility] Eosinophils Absolute Auto 0.1 0.0 - 0.4 X10*3/uL [facility] Basophils Absolute Auto 0.0 0.0 - 0.2 X10*3/uL [facility] NRBC Abs Auto 0.000 0.0 - 0.012 X10*3/uL [facility] 10/16/2024 6:20 PM EST 10/16/2024 6:27 PM EST us Generic External Data Provider LAB BLOOD ORDERAB LES Final Result Performing Organization Address City/State/[facility] Co de Phone Number [facility] [address] [place] [address] [phone] documented in this encounter Visit Diagnoses Not on filedocumented in this encounter Additional Health Concerns Assessment Noted Time PHQ-9 Depression Total Score: 0 01/15/20 24 9:49 AM EDT documented as of this encounter Care Teams Painter Touch Up Relationship Specialty Start Date End Date Maritza Alfonso FNP [address] [place] [address] PCP - General Family Medicine 05/24/22 documented as of this encounter
--- OUTSIDE RECORDS SUMMARY | 2024-11-03 19:32 | XMS_ITS | Encounter Summary ---
Author Organization [facility] Address [address] [place] [address] Phone Care Team Providers Care Service Administrator Name Role Phone Kaden [place] Primary Care Provider [phone] Encounter Details Date Type Department Care Team (Late Contact Info) Description 06/22/2022 Documentation Only [facility] [address] [place] [phone] Hank Cho PA Social History Tobacco Use [...] Visit [facility] [address] [place] [address] Mick Badillo MD [address] [place] [address] [place]. [place] [phone] documented as of this encounter Visit Diagnoses Not on filedocumented in this encounter Care Teams Service Administrator Relationship Specialty Start Date End Date Maritza Alfonso [address] [place] [address] PCP - General 06/26/22 documented as of this encounter
--- OUTSIDE RECORDS SUMMARY | 2024-11-03 19:32 | XMS_ITS | Encounter Summary ---
Author Organization [employer] Address [address] 7t [place] [address] Care Team Providers Care Retort Forker Name Role Phone [facility] Primary Care Provider [phone] Reason for Visit * Reason Onset Date Comments Med Refill 10/30/2024 Encounter Details Date Type Department Care Team (Late st Contact Info) Description 10/30/2024 Refill [facility] [address] [place], [place] [phone] [facility] [address] [place] [address] Type 2 diabetes mellitus with hyperglycemia, without long-term current use of insulin ([facility]); Type 2 diabetes mellitus with hyperglycemia, with long-term current use of insulin ([facility]) Social History Tobacco Use Types Packs/Day Years [...] encounter Miscellaneous Notes * Telephone Encounter - Kanika Lee RN - 10/30/2024 4:03 PM EST [employer] form received for DM testing supplies. PCP has signed and RN has faxed to [phone] confirmation page received. documented in this encounter Plan of Treatment Upcoming Encounters Date Type Department Care Team (Late st Contact Info) Description 12/25/2024 1:00 PM EDT Office Visit [facility] [address] [place] [address] Oneonta MaritzaITZELP [address] [place], [place] [phone] documented as of this encounter Visit Diagnoses Diagnosis Type 2 diabetes mellitus with hyperglycemia, without long-term current use of insulin ([facility]/HCC) Type 2 diabetes mellitus with hyperglycemia, with long-term current use of insulin ([facility]) documented in this encounter Additional Health Concerns Assessment Noted Time PHQ-9 Depression Total Score: 0 01/15/20 24 9:49 AM EDT documented as of this encounter Care Teams Retort Forker Relationship Specialty Start Date End Date OneontaMaritza moore FNP [address] [place] [address] PCP - General Family Medicine 05/24/22 Chetan MEYERS 10/21/24 documented as of this encounter
--- OUTSIDE RECORDS SUMMARY | 2024-11-03 19:32 | XMS_ITS | Encounter Summary ---
Author Organization [facility] Address [address] [place] [address] Phone Care Team Providers Care Welding Robot Operator Name Role Phone [facility] Primary Care Provider [phone] Encounter Details Date Type Department Care Team (Late Contact Info) Description 05/31/2022 Documentation Only [facility] [address] [place] [address] Alexander Zhou MD [address] [place] [address] [place] [address] Social History Tobacco Use Types [...] Visit [facility] [address] [place] [address] Mick Badillo MD [address] [facility] [place] [address] documented as of this encounter Visit Diagnoses Not on filedocumented in this encounter Care Teams Welding Robot Operator Relationship Specialty Start Date End Date [facility] [address] [place] [id number] PCP - General 06/26/22 documented as of this encounter
--- OUTSIDE RECORDS SUMMARY | 2024-11-03 19:32 | XMS_ITS | Encounter Summary ---
Author Organization [facility] Address [address] [place] [address] Phone Care Team Providers Care Epic Professional Name Role Phone Kaden [place] Primary Care Provider [phone] Encounter Details Date Type Department Care Team (Late Contact Info) Description 02/26/2023 Documentation Only [facility] [address] [place] [phone] Hank Cho PA Social History Tobacco Use [...] Visit [facility] [address] [place] [address] Mick Badillo MD [address] [place] [address] [place] [phone] documented as of this encounter Visit Diagnoses Not on filedocumented in this encounter Care Teams Epic Professional Relationship Specialty Start Date End Date Maritza Alfonso [address] [place] [address] PCP - General 06/26/22 documented as of this encounter
--- OUTSIDE RECORDS SUMMARY | 2024-11-03 19:32 | XMS_ITS | Encounter Summary ---
Author Organization [facility] Address [address] [place] [address] Phone Care Team Providers Care Catia Designer Name Role Phone Kaden Maritza Primary Care Provider [phone] Encounter Details Date Type Department Care Team (Late Contact Info) Description 02/25/2023 Documentation Only [facility] [address] [place] [phone] Hank Cho PA Social History Tobacco Use [...] Visit [facility] [address] [place] [address] Mick Badillo MD [address] [place] [address] [place] [phone] documented as of this encounter Visit Diagnoses Not on filedocumented in this encounter Care Teams Catia Designer Relationship Specialty Start Date End Date Maritza Alfonso [address] [place] [address] PCP - General 06/26/22 documented as of this encounter
--- OUTSIDE RECORDS SUMMARY | 2024-11-03 19:32 | XMS_ITS | Encounter Summary ---
Author Organization [facility] Address [address] [place] [address] Phone Care Team Providers Care Advanced Manager Name Role Phone Kaden [place] Primary Care Provider [phone] Encounter Details Date Type Department Care Team (Late Contact Info) Description 02/22/2023 Documentation Only [facility] [address] [place] [phone] Hank Cho PA Social History Tobacco Use [...] Visit [facility] [address] [place] [address] Mick Badillo MD [address] [place] [address] [place] [phone] documented as of this encounter Visit Diagnoses Not on filedocumented in this encounter Care Teams Advanced Manager Relationship Specialty Start Date End Date Maritza Alfonso [address] [place] [address] PCP - General 06/26/22 documented as of this encounter
--- OUTSIDE RECORDS SUMMARY | 2024-11-03 19:32 | XMS_ITS | Encounter Summary ---
Author Organization [employer] Address [address] [facility] 7t [place] [address] Care Team Providers Care Inspector Purchased Parts Name Role Phone [facility] Primary Care Provider [phone] Reason for Visit * Reason Comments Pre-visit Planning SDOH screening negat araceli and tobacco screening negative Encounter Details Date Type Department Care Team ([facility] st Contact Info) Description 10/12/2024 Patient Outreach [facility] [address] [place] [address] [facility] [address] [place] [address] Pre-visit Planning (SDOH screening negative and tobacco [...] the past 12 months, has t he [employer], gas, oil or water [employer] threatened to shut off services in your [...] 12/25/2024 1:00 PM EDT Office Visit [facility] [address] [place] [address] [facility] [address] [place] [address] documented as of this encounter Visit Diagnoses Not on filedocumented in this encounter Additional Health Concerns Assessment Noted Time PHQ-9 Depression Total Score: 0 01/15/20 24 9:49 AM EDT documented as of this encounter Care Teams Inspector Purchased Parts Relationship Specialty Start Date End Date Maritza Alfonso FNP [address] [place] [address] PCP - General Family Medicine 05/24/22 documented as of this encounter
--- OUTSIDE RECORDS SUMMARY | 2024-11-03 19:32 | XMS_ITS | Encounter Summary ---
Author Organization [facility] Address [address] [facility] 7t [place] [address] Care Team Providers Care Welder Setter Electron Beam Machine Name Role Phone Maritza Alfonso Primary Care Provider Reason for Referral * Imaging (STAT) - Closed Specialty Diagnoses / Procedures Referred By Guanakito t Referred To Contact Radiology Diagnoses Wound of left foot Procedures MR Foot w and w/o Contrast Left Maritza Alfonso FNP [address] [place] [address] Phone: tel: fax: [facility] [address] [place], [place] Phone: tel: fax: Referral ID Status Reason Start Date Expiration Date Visits Re quested Visits Authorized [id number] Closed 10/08/2024 10/08/2025 1 1 Encounter Details Date Type Department Care Team (Late st Contact Info) Description 10/08/2024 Orders Only [facility] 230 [place] [address] Maritza Alfonso FNP [address] [place], [place] [phone] Wound of left foot (Primary Dx) Social [...] Description 12/25/2024 1:00 PM EDT Office Visit [facility] [address] [place] [address] [place] Maritza [facility] [address] [place], [place] [phone] documented as of this encounter Procedures Procedure [...] Narrative 10/14/2024 4:35 PM EST ? [facility] ?[address] ?[place] [address] ? Magnetic Resonance Report ? Signed ? Patient: Néstor Chamorro ?MR#: [id number] ?? [id number] ? : 1960 ?Acct:[id number] ? Age/Sex: 63 / M ?ADM Date: 10/14/24 ? Loc: HO.MRI ? Attending Dr: Maritza Alfonso MOTTLE LAY UP OPERATOR ? Ordering Physician: Maritza Alfonso ?? Date of Service: 10/14/24 ?? Procedure(s): MR foot LT wo/w con ?? Accession Number(s): [id number] ? cc: Maritza Alfonso MOTTLE LAY UP OPERATOR ? EXAMINATION: ?? MR FOOT WITHOUT AND [...] DD/ 1444 ? TD/TT: 10/14/24 1545 ? Associate Professor Of Mathematics: ? Procedure Note Stan, Image - 10/14/[address] [address] Magnetic Resonance Report Signed Patient: Néstor Chamorro LMR#: [id number] : 1960cct:[id number] Age/Sex: 63 / MADM Date: 10/14/24 Loc: HO.MRI Attending Dr: Maritza CORONADO Ordering Physician: Maritza Alfonso Date of Service: 10/14/24 Procedure(s): MR foot LT wo/w con Accession Number(s): [id number] cc: Maritza Alfonso [facility] EXAMINATION: MR FOOT WITHOUT AND WITH CONTRAST, [...] by: Khai Moran MD 10/14/2024 04:32 PM [facility] Dictated By: Khai Moran MD Signed By: <Electronically signed by Khai Moran MD in OV> 10/14/24 1632 DD/ 1444 TD/TT: 10/14/24 1545 Associate Professor Of Mathematics: [facility] COR[facility] IMG MRI PROCEDURES Final Resu lt documented in this encounter Visit Diagnoses Diagnosis Wound of left foot- Primary documented in this encounter Additional Health Concerns Assessment Noted Time PHQ-9 Depression Total Score: 0 01/15/20 24 9:49 AM EDT documented as of this encounter Care Teams Welder Setter Electron Beam Machine Relationship Specialty Start Date End Date Maritza Alfonso FNP [address] [place] [address] PCP - General Family Medicine 05/24/22 documented as of this encounter
--- OUTSIDE RECORDS SUMMARY | 2024-11-03 19:32 | XMS_ITS | Encounter Summary ---
Author Organization [facility] Address [address] [place] [address] Phone Care Team Providers Care Lap Grinder Name Role Phone [facility] Primary Care Provider [phone] Encounter Details Date Type Department Care Team (Late Contact Info) Description 09/02/2023 Orders Only [facility] [address] [place] [address] Hank Cho PA Chronic kidney [...] Visit [facility] [address] [place] [address] Mick Badillo MD [address] [place] [address] [place] [address] documented as of this encounter Visit Diagnoses Diagnosis Chronic kidney disease, stage 2 (mild) Essential (primary) hypertension Type 2 diabetes mellitus, not otherwise specified (HCC) documented in this encounter Care Teams Lap Grinder Relationship Specialty Start Date End Date [facility] [address] [place] [address] PCP - General 06/26/22 documented as of this encounter
--- OUTSIDE RECORDS SUMMARY | 2024-11-03 19:32 | XMS_ITS | Encounter Summary ---
Author Organization [facility] Address [address] [facility] 7t [place] [address] Care Team Providers Care Repair Department Manager Name Role Phone Maritza Alfonso Primary Care Provider [phone] Reason for Referral * Consultation (Routine) - Authorized Specialty Diagnoses / Procedures Referred By Contlesli t Referred To Contact Diagnoses Osteomyelitis of left foot, unspecified type (CMS/HCC) Maritza Alfonso FNP [address] [place] [address] Phone: tel: fax: Shayna Bryant MD [address] [facility] [address] [place] [address] Phone: tel: Referral ID Status Reason Start Date Expiration Date Visits Requested Visits Authorized [id number] Authorized Specialty Services Required 11/02/2024 11/02/2025 1 1 Reason for Visit * Reason Comments Follow-up Diabetes Encounter Details Date Type Department Care Team (Late st Contact Info) Description 10/26/2024 9:45 AM EST Office Visit [facility] [address] [place], [place] [phone] Maritza Alfonso FNP [address] [place], [place] [phone] Type 2 diabetes mellitus with hyperglycemia, without long-term current use of insulin (CMS/HCC) (Primary Dx); Nausea; Osteomyelitis of left foot, unspecified type (CMS/HCC) Social History Tobacco Use Types Packs/Day Years [...] 9:40 AM EST documented in this encounter Progress Notes * [facility], WAITER/WAITRESS CAPTAIN - 10/26/2024 9:45 AM EST SUBJECTIVE: Néstor Hardin is a 63 y.o. year old male with T2DM, CKD, CAD, hx of osteomyelitis with resection of right great toe who presents for DM follow up . Acute Concerns: Elevated blood sugars. Patient thinks that Jardiance is causing GI upset. Stopped taking x 2 days. Interval History Hospitalized at [facility] 10/16/24- 10/18 for osteomyelitis left foot. IV vancomycin and Zosyn initially. PICC line placed with plan for daptomycin x 4 weeks. VNA is coming. Patient is self administering daptomycin. Referred to [facility] wound clinic and has upcoming appt this week. Has upcoming appointment withwound care. Was not referred to ID outpatient MRI left foot: MR/MR foot LT wo/w con IMPRESSION: 1. [...] This most likely also represents septic etiology. Social History Social History Narrative Current living environment: Has [employer]. Lives alone Children: 2 Activities: Enjoys walking, [...] dizziness, syncope, light-headedness and headaches. OBJECTIVE: Vitals: 10/26/24 0940 BP: (!) 140/70 Pulse: 92 Resp: 20 Temp: 97.1 ??F (36.2 ??C) Physical Exam Constitutional: Appearance: Normal appearance. HENT: Head: Normocephalic. Right Ear: External ear normal. Left Ear: External ear normal. Nose: Nose normal. Eyes: Conjunctiva/sclera: Conjunctivae normal. Cardiovascular: Rate and Rhythm: Normal rate and regular rhythm. Heart sounds: Normal heart sounds. Pulmonary: Effort: Pulmonary effort is normal. Breath sounds: Normal breath sounds. Musculoskeletal: Right lower leg: No edema. Left lower leg: No edema. Skin: General: Skin is warm and dry. Capillary Refill: Capillary refill takes less than 2 seconds. Neurological: General: No focal deficit present. Mental Status: He is alert and oriented to person, place, and time. Psychiatric: Mood and Affect: Mood normal. Behavior: Behavior normal. ASSESSMENT/PLAN T2DM -Discussed with patient that I suspect nausea and worsening GI upset is likely due to current daptomycin and until antibiotics are completed will be difficult to assess tolerance to diabetes meds - Increase Trulicity to 3 mg - Continue Jardiance 25 mg - Trial Zofran as needed for nausea - If GI upset persists we discussed possibly starting Lantus at follow-up - 2 weeks RN visit for glucose log review Foot Exam: Total loss of protective sensation, hx of R toe amputation Eye Exam: Referred 05/2024 Statin: Yes ASA: Yes YASHIRA/ARB: Yes OSTEOMYELITIS -Consulted with infectious disease. Recommendation to begin oral doxycycline x 4 weeks after completion of daptomycin. Will place outpatient referral. Follow-up as scheduled with [facility] wound care- - ED precautions advised to include fever, chills Follow Up: 2 weeks RN visit glucose log, 3 months routine Current Outpatient Medications on File Prior to [...] per week. 4 each 11 empagliflozin (Jardiance) 25 MG Take 1 tablet (25 mg) by mouth [...] facility-administered medications on file prior to visit. Kiswahili Translation: Provided by [facility] staff member KATTY Sahu documented in this encounter Plan of Treatment Upcoming Encounters Date Type Department Care Team (Late st Contact Info) Description 12/25/2024 1:00 PM EDT Office Visit [facility] [address] [place] [address] [place] [facility] [address] [place] [address] Scheduled Referrals Name Type Priority Associated Diagnoses Orde r Schedule Referral to Infectious Disease Outpatient Referral Routine Osteomyelitis of left foot, unspecified type (CMS/HCC) Expected: 11/02/2024 (Approximate), Expires: 11/02/2025 documented as of this encounter Procedures Procedure Name Priority Date/Time Associated Diagnosis Comments POCT GLUCOSE Routine 10/26/2024 9:44 AM EST Type 2 diabetes mellitus with hyperglycemia, without long-term current use of insulin ([facility]) documented in this encounter Results * (ABNORMAL) POCT Glucose (10/26/2024 9:44 AM EST) [facility] Signature Glucose Blood, POC 233(A) 60 - 200 mg/dL QC Media Lot # [id number] Lot# Expiration Date Blood Capillary blood specimen / Unknown 10/26/2024 9:44 AM EST [facility] POINT OF CARE TEST ENTER/EDIT ORDERABLES Final Result documented in this encounter Visit Diagnoses Diagnosis Type 2 diabetes mellitus with hyperglycemia, without long-term current use of insulin ([facility])- Primary Nausea Nausea alone Osteomyelitis of left foot, unspecified type ([facility]/HCC) documented in this encounter Additional Health Concerns Assessment Noted Time PHQ-9 Depression Total Score: 0 01/15/20 24 9:49 AM EDT documented as of this encounter Care Teams Repair Department Manager Relationship Specialty Start Date End Date Maritza Alfonso FNP [address] [place] [address] PCP - General Family Medicine 05/24/22 Chetan MEYERS 10/21/24 documented as of this encounter
--- OUTSIDE RECORDS SUMMARY | 2024-11-03 19:32 | XMS_ITS | Encounter Summary ---
Author Organization [facility] Address [address] [place] [address] Phone Care Team Providers Care Food Service Sales Representatives Name Role Phone Kaden [place] Primary Care Provider [phone] Encounter Details Date Type Department Care Team (Late Contact Info) Description 06/01/2022 Documentation Only [facility] [address] [place] [phone] Hank Cho PA Social History Tobacco Use [...] [facility] [address] [place] [address] Mick Badillo MD [address] [place] [address] [place] [phone] documented as of this encounter Visit Diagnoses Not on filedocumented in this encounter Care Teams Food Service Sales Representatives Relationship Specialty Start Date End Date Maritza Alfonso [address] [place] [address] PCP - General 06/26/22 documented as of this encounter
--- OUTSIDE RECORDS SUMMARY | 2024-11-03 19:32 | XMS_ITS | Encounter Summary ---
Author Organization [facility] Address [address] [place] [address] Phone Care Team Providers Care Stove Fitter Name Role Phone [facility] Primary Care Provider [phone] Encounter Details Date Type Department Care Team (Late Contact Info) Description 06/29/2024 Orders Only [facility] [address] [place] [address] Hank Cho PA Chronic kidney [...] Visit [facility] [address] [place] [address] Mick Badillo MD [address] [place] [address] [place] [address] documented as of this encounter Visit Diagnoses Diagnosis Chronic kidney disease, stage 2 (mild) Type 2 diabetes mellitus, not otherwise specified (HCC) Essential (primary) hypertension Microalbuminuria documented in this encounter Care Teams Stove Fitter Relationship Specialty Start Date End Date [facility] [address] [place] [address] PCP - General 06/26/22 documented as of this encounter
--- OUTSIDE RECORDS SUMMARY | 2024-11-03 19:32 | XMS_ITS | Encounter Summary ---
Author Organization [facility] Address [address] [place] [address] Phone Care Team Providers Care Manager Flight Name Role Phone [facility] Primary Care Provider [phone] Encounter Details Date Type Department Care Team (Late Contact Info) Description 10/25/2023 Documentation Only [facility] [address] [place] [address] Diane Morrison [address] [place] [address] Social History Tobacco Use Types [...] [facility] [address] [place] [address] Mick Badillo MD [address] [place] [address] [place] [address] documented as of this encounter Visit Diagnoses Not on filedocumented in this encounter Care Teams Manager Flight Relationship Specialty Start Date End Date [facility] [address] [place], [place] [phone] PCP - General 06/26/22 documented as of this encounter
--- OUTSIDE RECORDS SUMMARY | 2024-11-03 19:32 | XMS_ITS | Encounter Summary ---
Author Organization [employer] Address [address] [facility] [address] [place] [address] Care Team Providers Care Security Tech Name Role Phone [facility] Primary Care Provider [phone] Encounter Details Date Type Department Care Team (Late st Contact Info) Description 07/18/2023 Abstract [facility] MED[facility]INE [address] [place], [place] [phone] Mireya Khalil Social History Tobacco Use Types [...] Description 12/25/2024 1:00 PM EDT Office Visit [facility] MED[facility]INE [address] [place] [address] Maritza Alfonso FNP [address] [place] [address] documented as of this encounter Visit Diagnoses Not on filedocumented in this encounter Additional Health Concerns Assessment Noted Time PHQ-9 Depression Total Score: 4 04/03/20 23 10:08 AM EDT documented as of this encounter Care Teams Security Tech Relationship Specialty Start Date End Date Maritza Alfonso FNP [address] [place] [address] PCP - General Family Medicine 05/24/22 Chetan AKERSA 10/21/24 documented as of this encounter
--- OUTSIDE RECORDS SUMMARY | 2024-11-03 19:32 | XMS_ITS | Encounter Summary ---
Author Organization [facility] Address [address] [place] [address] Phone Care Team Providers Care Sammying Machine Operator Name Role Phone Kaden Whittaker Primary Care Provider [phone] Encounter Details Date Type Department Care Team (Late Contact Info) Description 05/28/2022 Documentation Only [facility] [address] [place] [phone] Hank Cho PA Social History Tobacco Use [...] [facility] [address] [place] [address] Mick Badillo MD [address] [place] [address] [place] [phone] documented as of this encounter Visit Diagnoses Not on filedocumented in this encounter Care Teams Sammying Machine Operator Relationship Specialty Start Date End Date Maritza Alfonso [address] [place] [address] PCP - General 06/26/22 documented as of this encounter
--- OUTSIDE RECORDS SUMMARY | 2024-11-03 19:32 | XMS_ITS | Encounter Summary ---
Author Organization [employer] Address [address] [facility] [address] 7t [place] [address] Care Team Providers Care Travel Guide Name Role Phone [facility] Primary Care Provider [phone] Reason for Visit * Reason Comments Med Change Request Encounter Details Date Type Department Care Team ([facility] st Contact Info) Description 10/30/2024 Refill [facility] MEDICINE [address] [place], [place] [phone] [facility] [address] [place], [place] [phone] Type 2 diabetes mellitus with hyperglycemia, without long-term current use of insulin ([facility]) Social History Tobacco Use Types [...] Description 12/25/2024 1:00 PM EDT Office Visit [facility]ICINE [address] [place] [address] [facility] [address] [place] [address] documented as of this encounter Visit Diagnoses Diagnosis Type 2 diabetes mellitus with hyperglycemia, without long-term current use of insulin ([facility]) documented in this encounter Additional Health Concerns Assessment Noted Time PHQ-9 Depression Total Score: 0 01/15/20 24 9:49 AM EDT documented as of this encounter Care Teams Travel Guide Relationship Specialty Start Date End Date PatersonMaritza [facility] [address] [place] [address] PCP - General Family Medicine 05/24/22 [facility] documented as of this encounter
--- OUTSIDE RECORDS SUMMARY | 2024-11-03 19:32 | XMS_ITS | Encounter Summary ---
Author Organization [facility] Address [address] [place] [address] Phone Care Team Providers Care Separator Operator Name Role Phone Kaden Beverly Primary Care Provider [phone] Encounter Details Date Type Department Care Team (Late Contact Info) Description 05/31/2022 Documentation Only [facility] [address] [place] [phone] Hank Cho PA Social History Tobacco Use [...] Visit [facility] [address] [place] [address] Mick Badillo MD [address] [place] [address] [place] [phone] documented as of this encounter Visit Diagnoses Not on filedocumented in this encounter Care Teams Separator Operator Relationship Specialty Start Date End Date Maritza Alfonso 230 [place] [address] PCP - General 06/26/22 documented as of this encounter
--- OUTSIDE RECORDS SUMMARY | 2024-11-03 19:32 | XMS_ITS | Encounter Summary ---
Author Organization [facility] Address [address] [place] [address] Phone Care Team Providers Care Recordist Chief Name Role Phone [facility] Primary Care Provider [phone] Encounter Details Date Type Department Care Team (Late Contact Info) Description 07/07/2024 Documentation Only [facility] [address] [place] [address] Diane Morrison [address] [place] [address] Social History Tobacco Use Types [...] Visit [facility] [address] [place] [address] Mick Badillo MD [address] [place] [address] [place] [address] documented as of this encounter Visit Diagnoses Not on filedocumented in this encounter Care Teams Recordist Chief Relationship Specialty Start Date End Date [facility] 230 [place], [place] [phone] PCP - General 06/26/22 documented as of this encounter
--- OUTSIDE RECORDS SUMMARY | 2024-11-03 19:32 | XMS_ITS | Encounter Summary ---
Author Organization [employer] Address [address] [facility] [address] 7[address] [place] [address] Care Team Providers Care Manager Asset Name Role Phone [facility] Primary Care Provider [phone] Encounter Details Date Type Department Care Team ([facility] st Contact Info) Description 10/16/2024 Telephone [facility] MEDICINE [address] [place], [place] [phone] [facility] [address] [place] [address] Social History Tobacco Use Types Packs/Day Years [...] 10/16/2024 3:56 PM EST T/C placed to [facility] ED per request of Maritza Alfonso [employer] to advise that pt will present to [...] Description 12/25/2024 1:00 PM EDT Office Visit [facility] MEDICINE [address] [place] [address] Maritza Alfonso FNP [address] [place] [address] documented as of this encounter Visit Diagnoses Not on filedocumented in this encounter Additional Health Concerns Assessment Noted Time PHQ-9 Depression Total Score: 0 01/15/20 24 9:49 AM EDT documented as of this encounter Care Teams Manager Asset Relationship Specialty Start Date End Date Maritza Alfonso FNP [address] [place] [address] PCP - General Family Medicine 05/24/22 documented as of this encounter
--- OUTSIDE RECORDS SUMMARY | 2024-11-03 19:33 | XMS_ITS | Encounter Summary ---
Author Organization [employer] Address [address] [facility] [address] 7[address] [place] [address] Care Team Providers Care Travel Professional Name Role Phone [facility] Primary Care Provider [phone] Reason for Visit * Reason Onset Date Comments Results 10/02/2024 Encounter Details Date Type Department Care Team ([facility] st Contact Info) Description 10/02/2024 Telephone [facility] MEDICINE [address] [place], [place] [phone] Rosa Solano RN [address] [place], [place] [phone] Results Social History Tobacco Use Types Packs/Day [...] Description 12/25/2024 1:00 PM EDT Office Visit [facility] MEDICINE [address] [place] [address] KadenMaritza moore FNP [address] [place] [address] documented as of this encounter Visit Diagnoses Not on filedocumented in this encounter Additional Health Concerns Assessment Noted Time PHQ-9 Depression Total Score: 0 01/15/20 24 9:49 AM EDT documented as of this encounter Care Teams Travel Professional Relationship Specialty Start Date End Date Maritza Alfonso FNP [address] [place] [address] PCP - General Family Medicine 05/24/22 Chetan MEYERS 10/21/24 documented as of this encounter
--- OUTSIDE RECORDS SUMMARY | 2024-11-03 19:33 | XMS_ITS | Encounter Summary ---
Author Organization [employer] Address [address] [facility] 7t [place] [address] Care Team Providers Care Net Mender Name Role Phone Maritza Alfonso [facility] Primary Care Provider [phone] Reason for Referral * Consultation (Routine) - Closed Specialty Diagnoses / Procedures Referred By Guanakito caro Referred To Contact Wound Care Diagnoses Wound of left foot Maritza Alfonso [facility] [address] [place] [address] Phone: tel: fax: [facility] [address] [place] [address] Phone: tel: fax: Referral ID Status Reason Start Date Expiration Date V isits Requested Visits Authorized [id number] Closed Specialty Services Required 10/07/2024 10/07/2025 1 1 * Imaging (STAT) - Canceled Specialty Diagnoses / Procedures Referred By Guanakito caro Referred To Contact Radiology Diagnoses Wound of left foot Procedures Mr Foot w/o Contrast Left Maritza Alfonso [facility] [address] [place] [address] Phone: tel: fax: [facility] [address] [place], [place] Phone: tel: fax: Referral ID Status Reason Start Date Expiration Date V isits Requested Visits Authorized [id number] Canceled 10/07/2024 10/07/2025 1 1 Reason for Visit * Reason Comments follow up foot ulcer Encounter Details Date Type Department Care Team (Late st Contact Info) Description 10/07/2024 11:00 AM EST Office Visit [facility] MEDICINE [address] [place] [address] Maritza Alfonso FNP [address] [place] [address] Type 2 diabetes mellitus with hyperglycemia, without long-term current use of insulin ([facility]) (Primary Dx); Wound of left foot Social [...] documented in this encounter Progress Notes * [facility], [facility] - 10/07/2024 11:00 AM EST SUBJECTIVE: Néstor [...] this time. He was previously followed by [facility] wound care and podiatry but was lost to follow up since -04/2024. [place] He was prescribed 2 weeks of Augmentin and referred back to podiatry. X-ray at this time with concern for possible occult osteomyelitis. Today patient denies fever or chills discharge or increased swelling he has an appointment with podiatry scheduled for October. 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 Lives alone Children: 2 Activities: Enjoys walking, [...] hyperglycemia, without long-term current use of insulin ([facility]) (Primary) Lab Results Component Value Date HGBA1C [...] facility-administered medications on file prior to visit. Tajik Translation: Provided by [facility] staff member KATTY Sahu documented in this encounter Plan of Treatment Upcoming Encounters Date Type Department Care Team (Late st Contact Info) Description 12/25/2024 1:00 PM EDT Office Visit [facility] [address] [place] [address] Maritza Alfonso FNP [address] [place] [address] Scheduled Orders Name Type Priority Associated Diagnoses [...] hyperglycemia, without long-term current use of insulin ([facility]) CBC WITH AUTO DIFFERENTIAL Routine 10/08/2024 9:55 AM EST Wound of left foot SED RATE BY MODIFIED WESTERGREN Routine 10/08/2024 9:55 AM EST Wound of left foot C-REACTIVE PROTEIN Routine 10/08/2024 9: 55 AM EST Wound of left foot LIPID PANEL, STANDARD Routine 10/08/2024 9:55 AM EST Type 2 diabetes mellitus with hyperglycemia, without long-term current use of insulin ([facility]) COMPREHENSIVE METABOLIC PANEL Routine 10/08/2024 9:55 AM EST Type 2 diabetes mellitus with hyperglycemia, without long-term current use of insulin ([facility]) POCT GLYCATED HEMOGLOBIN, TOTAL Routine 10/07/2024 11:04 AM EST Type 2 diabetes mellitus with hyperglycemia, without long-term current use of insulin ([facility]) POCT GLUCOSE Routine 10/07/2024 11:04 AM EST Type 2 diabetes mellitus with hyperglycemia, without long-term current use of insulin ([facility]) documented in this encounter Results * (ABNORMAL) C-reactive Protein (10/08/2024 9:55 AM EST) C Reactive Protein 2.03(H) < or = 0.50 mg/dL [facility] Blood Venous blood specimen / Unknown 10/08/2024 9:55 AM EST 10/08/2024 9:55 AM EST [facility] LAB BLOOD ORDERABLES Final Re sult [facility] [address] [place] [phone] * (ABNORMAL) Sed Rate by Modified Westergren (10/08/2024 9:55 AM EST) [facility] Erythrocyte Sedimentation Rate 38(H) 0 - 15 MM/HR [facility] Comment:Patients with polycy themia and many hemoglobin abnormalitiesmay have depressed sed rates whereas patients with anemiamay have elevated sed rates. Blood Venous blood specimen / Unknown 10/08/2024 9:55 AM EST 10/08/2024 9:55 AM EST [facility] LAB BLOOD ORDERABLES Final Re sult [facility] [address] [place] [phone] * (ABNORMAL) CBC auto differential (10/08/2024 9:55 AM EST) [facility] White Blood Count 3.6(L) 4.8 - 10.8 X10*3/uL [facility] Red Blood Count 4.71 4.60 - 5.80 X10*6/uL [facility] Hemoglobin 13.1(L) 14.0 - 18.0 g/dl [facility] Hematocrit 40.7(L) 42.0 - 52.0 % [facility] Mean Corpuscular Volume 86.4 80.0 - 98.0 fL [facility] Mean Corpuscular Hemoglobin 27.8 27.0 - 33.0 pg [facility] Mean Corpuscular HGB Conc 32.2 31.0 - 36.0 g/dl [facility] Red Cell Distribution Width 12.4 11.0 - 16.0 % [facility] Platelet Count 210 160 - 400 X10*3/uL [facility] Mean Platelet Volume 9.1(L) 9.4 - 12.4 fL [facility] Neutrophils Percent Auto 65.7 45 - 73 % [facility] Imm Gran Pct Auto 0.3 0.0 - 0.4 % [facility] Lymphocytes Percent Auto 19.9(L) 20 - 40 % [facility] Monocytes Percent Auto 11.6(H) 2 - 11 % [facility] Eosinophils Percent Auto 2.2 0 - 4 % [facility] Basophils Percent Auto 0.3 0 - 2 % [facility] NRBC Pct Auto 0.0 0.0 - 0.2 /100WBC [facility] Neutrophils Absolute Auto 2.4 2.0 - 8.3 x10*3/uL [facility] Imm Gran Abs Auto 0.01 0.00 - 0.03 X10*3/uL [facility] Lymphocytes Absolute Auto 0.7(L) 1.2 - 4.9 X10*3/uL [facility] Monocytes Absolute Auto 0.4 0.1 - 1.2 X10*3/uL [facility] Eosinophils Absolute Auto 0.1 0.0 - 0.4 X10*3/uL [facility] Basophils Absolute Auto 0.0 0.0 - 0.2 X10*3/uL [facility] NRBC Abs Auto 0.000 0.0 - 0.012 X10*3/uL [facility] Blood Venous blood specimen / Unknown 10/08/2024 9:55 AM EST 10/08/2024 9:55 AM EST [facility] LAB BLOOD ORDERABLES Final Re sult [facility] [address] [place] [phone] * Lipid Panel, Standard (10/08/2024 9:55 AM EST) Triglycerides 51 <150 mg/dL [facility] Comment:Desirable Triglyceri de: less than 150 mg/dLBorderline High Triglyceride 150-199 mg/dLHigh Triglyceride: 200-499 mg/dLVery High Triglyceride: greater than or equal to 5OO mg/dL Cholesterol 153 <200 mg/dL [facility] Comment:Desirable Cholestero l: less than 200 mg/dLBorderline High Cholesterol: 200-239 mg/dLHigh Cholesterol: greater than 239 mg/dL LDL Cholesterol Calculated 91 <100 mg/dL [facility] Comment:Desirable LDL: less than 100 mg/dLNear Optimal/Above Optimal LDL: 110- 129 mg/dLBorderline High LDL: 130-159 mg/dLHigh LDL: 160-189 mg/dLVery High LDL: greater than or equal to 190 mg/dL HDL Cholesterol 52 >40 mg/dL [facility] Comment:Desirable HDL: great er than 40 mg/dL Note: This HDL assay may give artificially low results in patients with liver disease. Blood Venous blood specimen / Unknown 10/08/2024 9:55 AM EST 10/08/2024 9:55 AM EST [facility] LAB BLOOD ORDERABLES Final Re sult [facility] [address] [place] [phone] * (ABNORMAL) Comprehensive Metabolic Panel (10/08/2024 9:55 AM EST) Sodium 136 135 - 145 mmol/L [facility] Potassium 4.2 3.3 - 5.1 mmol/L [facility] Chloride 101 96 - 108 mmol/L [facility] Carbon Dioxide 26 22 - 29 mmol/L [facility] Anion Gap 13 12 - 20 [facility] Urea Nitrogen (BUN) 11 9 - 16 mg/dL [facility] Creatinine, Serum 0.92 0.5 - 1.4 mg/dL [facility] Estimated Glomerular Filt Rate >60 [facility] Comment:Chronic Kidney Disea se: Estimated GFR < 60 mL/min/[id number] Kidney Disease: Estimated GFR < 15 mL/min/1.73m2 Glucose 167(H) 60 - 115 mg/dL [facility] Calcium 10.1 8.4 - 10.2 mg/dL [facility] Bilirubin, Total 0.5 0.0 - 1.0 mg/dL [facility] Aspartate Amino Transferase 25 5 - 37 U/L [facility] Alanine Aminotransferase 20 0 - 40 U/L [facility] Total Protein 8.8(H) 6.5 - 8.0 g/dL [facility] Albumin Level 4.5 3.5 - 5.0 g/dL [facility] Alkaline Phosphatase 72 39 - 117 U/L [facility] Blood Venous blood specimen / Unknown 10/08/2024 9:55 AM EST 10/08/2024 9:55 AM EST [facility] LAB BLOOD ORDERABLES Final Re sult Performing Organization Address [facility] Co de Phone Number [facility] [address] [place] [phone] * Albumin, Random Urine W/Creatinine (10/08/2024 9:55 AM EST) Creatinine, Urine 98.17 mg/dL [facility] Microalbumin Urine 20.0 mg/L [facility] Microalbum Creatinine Ratio Ur 20.3 <30 ug/mg cr [facility] Comment:Albumin/Creatinine R atio Reference Ranges: Normal: < 30 ug/mg creatinine Microalbuminuria: 30 - 300 ug/mg creatinineClinical Albuminuria: > 300 ug/mg creatinine Urine 10/08/2024 9:55 AM EST 10/08/2024 10:32 AM EST [facility] LAB URINE ORDERABLES Final Re sult Performing Organization Address [facility] Co de Phone Number [facility] [address] [place] [phone] * (ABNORMAL) POCT HGB A1C (10/07/2024 11:04 AM EST) Hemoglobin A1C 8.5(A) 4.0 - 6.0 % Blood 10/07/2024 11:0 4 AM EST Result [facility] POINT OF CARE TEST ENTER/EDIT ORDERABLES Final Result * POCT Glucose (10/07/2024 11:04 AM EST) Glucose Blood, POC 200 60 - 200 mg/dL Blood Capillary blood specimen / Unknown 10/07/2024 11:04 AM EST Result [facility] POINT OF CARE TEST ENTER/EDIT ORDERABLES Final Result documented in this encounter Visit Diagnoses Diagnosis Type 2 diabetes mellitus with hyperglycemia, without long-term current use of insulin ([facility])- Primary Wound of left foot documented in this encounter Additional Health Concerns Assessment Noted Time PHQ-9 Depression Total Score: 0 01/15/20 24 9:49 AM EDT documented as of this encounter Care Teams Net Mender Relationship Specialty Start Date End Date TampaMaritza [facility] [address] [place] [address] PCP - General Family Medicine 05/24/22 documented as of this encounter
--- OUTSIDE RECORDS SUMMARY | 2024-11-03 19:33 | XMS_ITS | Clinical Summary ---
Author Organization [employer] Address [address] [facility] [address] [place] [address] Care Team Providers Care Director Of Nursing Name Role Phone [facility] Primary Care Provider [phone] Allergies Active Allergy Reactions Criticality Noted Date [...] hyperglycemia, with long-term current use of insulin ([facility]) 1 kit before breakfast, before lunch, before evening meal, and at bedtime. 1 kit 09/20/19 23 Active TRUEplus Lancets 33G miscIndications :Type 2 diabetes mellitus with hyperglycemia, with long-term current use of insulin ([facility]) TEST BLOOD SUGAR 4 TIMES A DAY 100 each 11 04/09/20 23 Active metFORMIN XR (Glucophage-XR) 500 MG 24 hr tabletIndicatio ns:Type 2 diabetes mellitus with hypoglycemia without coma, without long-term current use of insulin ([facility]) Take 1 tablet (500 mg) by mouth 2 times daily. 360 tablet 1 05/20/20 24 Active metoprolol succinate XL (Toprol-XL) 50 MG 24 hr tablet TAKE 1 TABLET BY MOUTH EVERY MORNING 90 tablet 1 09/29/19 25 Active Aspirin Low Dose 81 MG EC tablet TAKE 1 TABLET BY MOUTH EVERY MORNING 90 tablet 09/29/19 25 Active D3 Super Strength 50 MCG (1999 UT) [...] use of insulin ([facility]) Inject 3 mg under the skin 1 (one) time per week. 2 mL 10/26/19 25 026 Active Alcohol Swabs (Alcohol Prep) padsIndications :Type 2 diabetes mellitus with hyperglycemia, without long-term current use of insulin ([facility]) Use one pad each to prep skin prior to injection as directed 100 each 10/26/19 25 Active ondansetron (Zofran) 4 MG tabletIndicatio ns:Nausea Take 1 tablet (4 mg) by mouth every 8 (eight) hours if needed for nausea or vomiting. 30 tablet 10/26/19 25 Active Lancets 33G miscIndications :Type 2 diabetes mellitus with hyperglycemia, without long-term current use of insulin ([facility]) Use as directed to check blood sugar once daily 100 each 10/30/19 25 Active glucose blood (FREESTYLE LITE) test stripIndication s:Type 2 diabetes mellitus with hyperglycemia, with long-term current use of insulin ([facility]) TEST BLOOD SUGAR ONCE DAILY 100 strip 10/30/19 25 Active Glucose Blood (Blood Glucose Test) stripIndication s:Type 2 diabetes mellitus with hyperglycemia, without long-term current use of insulin ([facility]) USE TO TEST BLOOD SUGAR ONCE A DAY 50 strip 11/03/19 25 Active Blood Glucose Monitoring Suppl (GNP Easy Touch Glucose Meter) deviceIndicatio ns:Type 2 diabetes mellitus with hyperglycemia, without long-term current use of insulin ([facility]) USE TO TEST BLOOD SUGAR ONCE A DAY 1 each 11/03/19 25 Active doxycycline (Vibramycin) 100 MG capsuleIndicati ons:Osteomyelit is of left foot, unspecified type ([facility]) Take 1 capsule (100 mg) by mouth 2 times daily. Take with at least 8 ounces (large glass) of water, do not lie down for 30 minutes after 60 capsule 11/03/19 25 025 Active UltiGuard SafePack Pen Needle 32G X 4 MM miscIndications :Type 2 diabetes mellitus with diabetic chronic kidney disease, unspecified CKD stage, unspecified whether senior financial consultant insulin use ([facility]) USE ONCE DAILY WITH INSULIN 100 each 3 08/16/20 22 025 Discontinued glucose blood (FREESTYLE LITE) test stripIndication s:Type 2 diabetes mellitus with hyperglycemia, with long-term current use of insulin ([facility]) TEST BLOOD SUGAR 4 TIMES A DAY 100 strip 11 04/09/20 23 025 Discontinued(Re order (will not trigger notification to Pharmacy)) dulaglutide (Trulicity) 1.5 MG/0.5ML solution pen-injectorInd ications:Type 2 diabetes mellitus with hyperglycemia, without long-term current use of insulin ([facility]) Inject 1.5 mg under the skin 1 (one) time per week. 4 each 01/15/20 24 025 Discontinued empagliflozin (Jardiance) 10 MGIndications:T ype 2 diabetes mellitus with hypoglycemia without coma, without long-term current use of insulin ([facility]) Take 1 tablet (10 mg) by mouth Once per day. 30 tablet 05/20/20 025 Discontinued(Re order (will not trigger notification to Pharmacy)) Lancets 33G miscIndications :Type 2 diabetes mellitus with hyperglycemia, without long-term current use of insulin ([facility]) Use as directed to check blood sugar four times daily 100 each 3 10/26/19 25 025 Discontinued(Re order (will not trigger notification to Pharmacy)) Blood Glucose Monitoring Suppl (GNP Easy Touch Glucose Meter) deviceIndicatio ns:Type 2 diabetes mellitus with hyperglycemia, without long-term current use of insulin ([facility]) Use as directed to check blood sugar four times daily 1 each 10/26/19 25 025 Discontinued glucose blood test stripIndication s:Type 2 diabetes mellitus with hyperglycemia, without long-term current use of insulin ([facility]) Use as directed to check blood sugar four times daily 100 each 10/26/19 25 025 Discontinued Active Problems Problem Noted Date Diagnosed Date [...] Declines PSA: 04/2023 Vision Exam: Referred to [facility] 04/2023 Immunizations:Declines PCV 20 04/2023 Assessment & [...] arteriosclerosis 08/13/2022 Overview (04/03/2023): ?? Folllowed by [facility] cardiology Dr. Morales ?? 01/2023 Negative Echo. Negative stress test Leukopenia 03/26/2022 Overview (04/03/2023): ?? Followed by hematology/oncology at [facility]. Last seen apporx 6 months ago. Reports [...] toe amputation Eye Exam: Referred back to [facility] optometry 04/2023 Statin: Yes ASA: Yes YASHIRA/ARB: [...] previously ordered labs. Will re order to [facility] lab today Essential (primary) hypertension 08/12/2012 Overview [...] Encounters Date Type Department Care Team Description 10/30/2024 Refill [facility] [address] [place] [address] Maritza Alfonso FNP Type 2 diabetes mellitus with hyperglycemia, without long-term current use of insulin ([facility]) 10/30/2024 Refill [facility] [address] [place] [address] Maritza Alfonso FNP Type 2 diabetes mellitus with hyperglycemia, without long-term current use of insulin ([facility]); Type 2 diabetes mellitus with hyperglycemia, with long-term current use of insulin ([facility]) 10/30/2024 Telephone [facility] [address] [place] [address] Maritza Alfonso FNP Prior Authorization; Plan of care 10/26/2024 9:45 AM EST Office Visit [address] [address] [place] [facility] Type 2 diabetes mellitus with hyperglycemia, without long-term current use of insulin ([facility]) (Primary Dx); Nausea; Osteomyelitis of left foot, unspecified type ([facility]) 10/26/2024 Travel 10/16/2024 Orders Only GENERIC EXTERNAL DATA DEPARTMENT Provider, Generic External Data 10/16/[address] [address] [place] [facility] 10/12/2024 Patient Outreach [address] [address] [facility] Pre-visit Planning (SDOH screening negative and tobacco screening negative) 10/08/2024 Orders Only [facility] [address] [place] [address] [facility] Wound of left foot (Primary Dx) 10/07/2024 11:00 AM EST Office Visit [address] [address] [place] [facility] Type 2 diabetes mellitus with hyperglycemia, without long-term current use of insulin ([facility]) (Primary Dx); Wound of left foot 10/07/2024 Telephone [facility] [address] [place] [address] [place] [facility] MRI FOOT ORDER 10/07/2024 Travel 10/02/[address] [address] Rosa Solano, RN Results 09/28/[address] [address] [facility] 08/13/2024 1:00 PM EST Office Visit [facility] [address] [place] [phone] Catarina Samayoa MD Localized swelling of left foot (Primary Dx); Charcot foot due to diabetes mellitus ([facility]); Hx of diabetic foot ulcer from Last [...] 1:00 PM EDT Office Visit [facility] [address] [place] [address] [facility] [address] [place] [address] Health Maintenance Due Date Last Done Comments [...] exists SDOH Screening 10/12/2025 10/12/2024 Tobacco Screening 11/02/2025 11/02/2024 DTaP/Tdap/Td Vaccines (3 - Td or Tdap) [...] without long-term current use of insulin (CMS/HCC) SED RATE BY MODIFIED WESTERGREN Routine 10/16/2024 [...] of2 resultswithin the time period is included. Glucose Blood, POC 233(A) 60 - 200 mg/dL QC Media Lot # [id number] Lot# Expiration Date Blood Capillary blood specimen / Unknown 10/26/2024 9:44 AM EST [facility] COMPACTOR DRIVER POINT OF CARE TEST ENTER/EDIT ORDERABLES Final Result * (ABNORMAL) CBC auto differential (10/16/2024 6:20 PM EST) Only the most recent of2 resultswithin the time period is included. White Blood Count 4.7(L) 4.8 - 10.8 X10*3/uL [facility] Red Blood Count 4.68 4.60 - 5.80 X10*6/uL [facility] Hemoglobin 13.0(L) 14.0 - 18.0 g/dl [facility] Hematocrit 39.0(L) 42.0 - 52.0 % [facility] Mean Corpuscular Volume 83.3 80.0 - 98.0 fL [facility] Mean Corpuscular Hemoglobin 27.8 27.0 - 33.0 pg [facility] Mean Corpuscular HGB Conc 33.3 31.0 - 36.0 g/dl [facility] Red Cell Distribution Width 12.1 11.0 - 16.0 % [facility] Platelet Count 233 160 - 400 X10*3/uL [facility] Mean Platelet Volume 9.1(L) 9.4 - 12.4 fL [facility] Neutrophils Percent Auto 70.8 45 - 73 % [facility] Imm Gran Pct Auto 0.2 0.0 - 0.4 % [facility] Lymphocytes Percent Auto 19.7(L) 20 - 40 % [facility] Monocytes Percent Auto 7.0 2 - 11 % [facility] Eosinophils Percent Auto 2.1 0 - 4 % [facility] Basophils Percent Auto 0.2 0 - 2 % [facility] NRBC Pct Auto 0.0 0.0 - 0.2 /100WBC [facility] Neutrophils Absolute Auto 3.3 2.0 - 8.3 x10*3/uL [facility] Imm Gran Abs Auto 0.01 0.00 - 0.03 X10*3/uL [facility] Lymphocytes Absolute Auto 0.9(L) 1.2 - 4.9 X10*3/uL [facility] Monocytes Absolute Auto 0.3 0.1 - 1.2 X10*3/uL [facility] Eosinophils Absolute Auto 0.1 0.0 - 0.4 X10*3/uL [facility] Basophils Absolute Auto 0.0 0.0 - 0.2 X10*3/uL [facility] NRBC Abs Auto 0.000 0.0 - 0.012 X10*3/uL [facility] 10/16/2024 6:20 PM EST 10/16/2024 6:27 PM EST Generic External Data Provider LAB BLOOD ORDERAB LES Final Result Performing Organization Address [facility] Co de Phone Number [facility] [address] [place] [phone] * (ABNORMAL) Sed Rate by Modified [place] (10/16/2024 6:20 PM EST) Only the most recent of2 resultswithin the time period is included. Erythrocyte Sedimentation Rate 54(H) 0 - 15 MM/HR [facility] Comment:Patients with polycy themia and many hemoglobin abnormalitiesmay have depressed sed rates whereas patients with anemiamay have elevated sed rates. 10/16/2024 6:20 PM EST 10/16/2024 6:27 PM EST Generic External Data Provider LAB BLOOD ORDERAB LES Final Result Performing Organization Address [facility] Co de Phone Number [facility] [address] [place] [address] [phone] * (ABNORMAL) C-reactive Protein (10/16/2024 6:20 PM EST) Only the most recent of2 resultswithin the time period is included. C Reactive Protein 1.74(H) < or = 0.50 mg/dL [facility] 10/16/2024 6:20 PM EST 10/16/2024 6:27 PM EST us Generic External Data Provider LAB BLOOD ORDERAB LES Final Result Performing Organization Address [facility]/ZIP Co de Phone Number [facility] [address] [place] [phone] * Lipase (10/16/2024 6:20 PM EST) Lipase 25 8 - 78 U/L [facility] 10/16/2024 6:20 PM EST 10/16/2024 6:27 PM EST us Generic External Data Provider LAB BLOOD ORDERAB LES Final Result Performing Organization Address [facility] Co me Phone Number [facility] [address] [place] [phone] * Lactic Acid (10/16/2024 6:20 PM EST) Pathologist [facility] Lactic Acid 1.0 0.5 - 2.0 mmol/L [facility] 10/16/2024 6:20 PM EST 10/16/2024 6:27 PM EST Generic External Data Provider LAB BLOOD ORDERAB LES Final Result Performing Organization Address [facility] de Phone Number [facility] [address] [place] [phone] * (ABNORMAL) Comprehensive Metabolic Panel (10/16/2024 6:20 PM EST) Only the most recent of2 resultswithin the time period is included. Sodium 136 135 - 145 mmol/L [facility] Potassium 4.0 3.3 - 5.1 mmol/L [facility] Chloride 100 96 - 108 mmol/L [facility] Carbon Dioxide 28 22 - 29 mmol/L [facility] Anion Gap 12 12 - 20 [facility] Urea Nitrogen (BUN) 14 9 - 16 mg/dL [facility] Creatinine, Serum 1.24 0.5 - 1.4 mg/dL [facility] Creatinine Clr Calc Pharmacy 63.5 [facility] Comment:eGFR (calculated fro m the MDRD study equation) and eCrCl(calculated from the Cockcroft-Gault equation) are based ondifferent parameters and may not yield comparable results.If eCrCl result is absurd, please check patient'sheight/weight. Estimated Glomerular Filt Rate 59 [facility] Comment:Chronic Kidney Disea se: Estimated GFR < 60 mL/min/1.89g1Weybid Kidney Disease: Estimated GFR < 15 mL/min/1.73m2 Glucose 248(H) 60 - 115 mg/dL [facility] Calcium 10.0 8.4 - 10.2 mg/dL [facility] Bilirubin, Total 0.3 0.0 - 1.0 mg/dL [facility] Aspartate Amino Transferase 21 5 - 37 U/L [facility] Alanine Aminotransferase 16 0 - 40 U/L [facility] Total Protein 8.8(H) 6.5 - 8.0 g/dL [facility] Albumin Level 4.4 3.5 - 5.0 g/dL [facility] Alkaline Phosphatase 78 39 - 117 U/L [facility] 10/16/2024 6:20 PM EST 10/16/2024 6:27 PM EST us Generic External Data Provider LAB BLOOD ORDERAB LES Final Result [facility] [address] [place] [phone] * MR Foot w and w/o Contrast Left (10/14/2024 2:44 PM EST) Anatomical Region Laterality Modality Lower Extremities, Foot Left Magnetic Resonance 10/14/2024 2:44 PM EST Narrative 10/14/2024 4:35 PM EST ? [facility] ?[address] ?[place] [address] ? Magnetic Resonance Report ? Signed ? Patient: Octavio Hardin,Andrea ?MR#: [id number] ?? [id number] ? : 1960 ?Acct:[id number] ? Age/Sex: 63 / M ?ADM Date: 10/14/24 ? Loc: HO.MRI ? Attending Dr: Maritza Alfonso COMPACTOR DRIVER ? Ordering Physician: Maritza Alfonso COMPACTOR DRIVER ?? Date of Service: 10/14/24 ?? Procedure(s): MR foot LT wo/w con ?? Accession Number(s): [id number] ? cc: Maritza Alfonso COMPACTOR DRIVER ? EXAMINATION: ?? MR FOOT WITHOUT AND [...] Moran MD ??10/14/2024 04:32 PM EST RP ?? Workstation: [id number] ? Dictated By: ?Khai Moran MD ? Signed By: ?<Electronically signed by Khai Moran MD in OV> ?10/14/24 1632 ? DD/ 1444 ? TD/TT: 10/14/24 1545 ? Head Of Commission Department: ? Procedure Note Kiel Pierce - 10/14/[address] [address] Magnetic Resonance Report Signed Patient: Néstor Chamorro LMR#: [id number] : 1960cct:[id number] Age/Sex: 63 / MADM Date: 10/14/24 Loc: HO.MRI Attending Dr: Maritza Alfonso COMPACTOR DRIVER Ordering Physician: Maritza Alfonso Date of Service: 10/14/24 Procedure(s): foot LT wo/w con Accession Number(s): [id number] cc: [facility] COMPACTOR DRIVER EXAMINATION: MR FOOT WITHOUT AND WITH CONTRAST, [...] 10/14/24 1632 DD/ 1444 TD/TT: 10/14/24 1545 Head Of Commission Department: [facility] COMPACTOR DRIVER IMG MRI PROCEDURES Final Resu lt * Albumin, Random Urine W/Creatinine (10/08/2024 9:55 AM EST) Creatinine, Urine 98.17 mg/dL [facility] Microalbumin Urine 20.0 mg/L [facility] Microalbum Creatinine Ratio Ur 20.3 <30 ug/mg cr [facility] Comment:Albumin/Creatinine R atio Reference Ranges: Normal: < 30 ug/mg creatinine Microalbuminuria: 30 - 300 ug/mg creatinineClinical Albuminuria: > 300 ug/mg creatinine Urine 10/08/2024 9:55 AM EST 10/08/2024 10:32 AM EST [facility] COMPACTOR DRIVER LAB URINE ORDERABLES Final Re sult [facility] [address] [place] [phone] * Lipid Panel, Standard (10/08/2024 9:55 AM EST) Triglycerides 51 <150 mg/dL [facility] Comment:Desirable Triglyceri de: less than 150 mg/dLBorderline High Triglyceride 150-199 mg/dLHigh Triglyceride: 200-499 mg/dLVery High Triglyceride: greater than or equal to 5OO mg/dL Cholesterol 153 <200 mg/dL [facility] Comment:Desirable Cholestero l: less than 200 mg/dLBorderline High Cholesterol: 200-239 mg/dLHigh Cholesterol: greater than 239 mg/dL LDL Cholesterol Calculated 91 <100 mg/dL [facility] Comment:Desirable LDL: less than 100 mg/dLNear Optimal/Above Optimal LDL: 110- 129 mg/dLBorderline High LDL: 130-159 mg/dLHigh LDL: 160-189 mg/dLVery High LDL: greater than or equal to 190 mg/dL HDL Cholesterol 52 >40 mg/dL [facility] Comment:Desirable HDL: great er than 40 mg/dL Note: This HDL assay may give artificially low results in patients with liver disease. Blood Venous blood specimen / Unknown 10/08/2024 9:55 AM EST 10/08/2024 9:55 AM EST [facility] COMPACTOR DRIVER LAB BLOOD ORDERABLES Final Re sult [facility] [address] [place] [phone] * (ABNORMAL) POCT HGB A1C (10/07/2024 11:04 AM EST) Hemoglobin A1C 8.5(A) 4.0 - 6.0 % Blood 10/07/2024 11:0 4 AM EST [facility] COMPACTOR DRIVER POINT OF CARE TEST ENTER/EDIT ORDERABLES Final Result * XR Foot 3+ Views Left (08/13/2024 11:46 AM EST) Anatomical Region Laterality Modality Lower Extremities, Foot Left Radiogra phic Imaging 08/13/2024 11:4 6 AM EST Narrative 10/02/2024 9:19 AM EST ?[facility] ?[address] ?[place] [address] ?XRay Report ? Signed ? Patient: Octavio Hardin,Andrea ?MR#: [id number] ?? [id number] ? : 1960 ?Acct:[id number] ? Age/Sex: 63 / M ?ADM Date: 12/12/24 ? Loc: HO.HHCX ? Attending Dr: Catarina Samayoa MD ? Ordering Physician: Catarina Saamyoa MD ?? Date of Service: 08/13/24 ?? Procedure(s): XR foot LT min 3V ?? Accession Number(s): [id number] ? cc: Catarina Samayoa MD; [facility] ? EXAMINATION: ?? XR FOOT LEFT ? [...] DD/ 1146 ? TD/TT: 08/13/24 1148 ? Head Of Commission Department: SR ? Procedure Note tSan, Kiel - 10/02/[address] [address] XRay Report Signed Patient: Néstor Chamorro LMR#: [id number] : 1Acct:[id number] Age/Sex: 63 / MADM Date: 08/13/24 Loc: HO.HHCX Attending Dr: Catarina Samayoa MD Ordering Physician: Catarina Samayoa MD Date of Service: 08/13/24 Procedure(s): XR foot LT min 3V Accession Number(s): [id number] cc: Catarina Samayoa MD; [facility] EXAMINATION: XR FOOT LEFT CLINICAL INFORMATION: Pain. [...] by: Sam Gillette MD 10/02/2024 09:16 AM [facility] Dictated By: Sam Gillette MD Signed By: <Electronically signed by Sam Gillette MD in OV> 10/02/24 0916 DD/ 1146 TD/TT: 08/13/24 1148 Head Of Commission Department: Catarina Samayoa MD IMG XR PROCEDURES Final Re sult * Referral to Optometry (07/08/2024) [facility] OUTPATIENT REFERRAL ORDERABLE S Final Result * HEPATITIS C AB W/REFL TO HCV RNA, QN, PCR (05/24/2022 11:27 AM EDT) HEPATITIS C ANTIBODY NON-REACT ALICIA NON-REACT ALICIA [facility] [facility] INDEX 0.06 <1.00 [facility] Comment: ?? HCV antibody was non-reactive. There is no laboratory ?? evidence of HCV infection. ?? In most cases, no further action is required. However, if recent HCV exposure is suspected, a test for HCV RNA (test code 77335) is suggested. ?? For additional information please refer to http://[employer]/faq/AAE21d8 (This link is being provided for informational/ educational purposes only.) ?? 05/24/2022 11:2 7 AM EDT [facility] HISTORICAL/NON ORDERABLE LABS Final Result Performing Organization Address [facility] de Phone Number [facility] [address] * HIV 1/2 ANTIGEN/ANTIBODY,FOURTH GENERATION W/RFL (05/24/2022 11:27 AM EDT) HIV-1/2 ANTIGEN AND ANTIBODIES, 4TH GENERATION W/ REFLEX NON-REACT ALICIA NON-REACT ALICIA [facility] Comment: HIV-1 antigen and HIV-1/HIV-2 [...] ? For additional information please refer to http://education.[employer]/faq/YKS089 (This link is being provided for informational/ educational purposes only.) ? The performance of this assay has not been clinically validated in patients less than 2 years old. ?? 05/24/2022 11:2 7 AM EDT [facility] LAB BLOOD ORDERABLES Final Re sult Performing Organization Address [facility] de Phone Number [facility] [address] [place] [address] * Colonoscopy (12/28/2013) Colonoscopy performed us Historical Provider MD HEALTH MAINTENANCE Final Result from Last 3 Months or Most Recently Relevant to Health Maintenance Insurance MEDICARE Member Subscriber Plan / Payer (Ef fective 2011-Present) Name:Néstor Chamorro Luis Member ID:[id number] Relation to Subscriber:Self Name:Néstor Chamorro Subscriber ID:[id number] Payer ID:STATE Group ID:Not on file Type:Medicare Address: [facility] [address] [phone] [facility] STAND AD[place] Care Teams Director Of Nursing Relationship Specialty Start Date End Date Maritza Alfonso FNP [address] [place] [phone] PCP - General Family Medicine 05/24/22 Chetan A 10/21/24
--- OUTSIDE RECORDS SUMMARY | 2024-11-03 19:33 | XMS_ITS | Encounter Summary ---
Author Organization [employer] Address [address] [facility] 7t [place] [address] Care Team Providers Care Electronic News Gathering Camera Person Name Role Phone [facility] Primary Care Provider [phone] Reason for Visit * Reason Onset Date Comments MRI FOOT ORDER 10/07/2024 Encounter Details Date Type Department Care Team ([facility] st Contact Info) Description 10/07/2024 Telephone [facility] [address] [place] [address] [facility] 230 [place] [address] MRI FOOT ORDER Social History Tobacco Use [...] 10/07/2024 4:11 PM EST Incoming fax from [facility], Order needs to be with & without contrast documented in this encounter Plan of Treatment Upcoming Encounters Date Type Department Care Team (Late st Contact Info) Description 12/25/2024 1:00 PM EDT Office Visit [facility] 230 [place] [address] Maritza Alfonso FNP 230 [place] [address] documented as of this encounter Visit Diagnoses Not on filedocumented in this encounter Additional Health Concerns Assessment Noted Time PHQ-9 Depression Total Score: 0 01/15/20 24 9:49 AM EDT documented as of this encounter Care Teams Electronic News Gathering Camera Person Relationship Specialty Start Date End Date Maritza Alfonso FNP 230 [place] [address] PCP - General Family Medicine 05/24/22 documented as of this encounter
--- OUTSIDE RECORDS SUMMARY | 2024-11-03 19:33 | XMS_ITS | Encounter Summary ---
Author Organization [employer] Address [address] [facility] [address] 7[address] [place] [address] Care Team Providers Care Livestock Trader Name Role Phone [facility] Primary Care Provider [phone] Encounter Details Date Type Department Care Team [...] Description 12/25/2024 1:00 PM EDT Office Visit [facility] [address] [place] [address] Maritza Alfonso FNP [address] [place] [address] documented as of this encounter Visit Diagnoses Not on filedocumented in this encounter Additional Health Concerns Assessment Noted Time PHQ-9 Depression Total Score: 0 01/15/20 24 9:49 AM EDT documented as of this encounter Care Teams Livestock Trader Relationship Specialty Start Date End Date Maritza Alfonso FNP 230 [place] [address] PCP - General Family Medicine 05/24/22 documented as of this encounter
--- OUTSIDE RECORDS SUMMARY | 2024-11-03 19:33 | XMS_ITS | Encounter Summary ---
Author Organization [employer] Address [address] [facility] [address] 7t [place] [address] Care Team Providers Care Line Rider Name Role Phone [facility] Primary Care Provider [phone] Encounter Details Date Type Department Care Team ([facility] st Contact Info) Description 07/29/[address] [facility] [address] [place], [place] [phone] [facility] 230 [place] [address] Neoplasm of uncertain behavior (Primary Dx) Social [...] Description 12/25/2024 1:00 PM EDT Office Visit 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
--- OUTSIDE RECORDS SUMMARY | 2024-11-03 19:33 | XMS_ITS | Clinical Summary ---
Author Organization [facility], Address [address] [place] [address] [place] [address] Phone Care Team Providers Care Lumpia Wrapper Maker Name Role Phone [facility] Primary Care Provider [phone] Allergies Active Allergy Reactions Criticality Noted Date [...] Visit [facility], [address] [place] [address] Mick Badillo MD [address] [facility] [address] [place] [phone] Health Maintenance Due Date Last Done Comments [...] Name Priority Date/Time Associated Diagnosis Comments LAB COMPUTER EQUIPMENT REPAIRER Routine 01/29/2018 12:00 AM EDT from Last 3 Months or Most Recently Relevant to Health Maintenance Results * Lab Warehouse Associate (01/29/2018 12:00 AM EDT) Hemoglobin A1C 7.8 % [facility] 01/29/2018 us [facility] Conversion LAB [id number] LICITED RESULTS Final Result [facility] from Last 3 Months or Most Recently Relevant to Health Maintenance Insurance [place]ICA[place] MEDICARE Care Teams Lumpia Wrapper Maker Relationship Specialty Start Date End Date [facility] 230 [place] [address] PCP - General 06/26/22
== END 2024-11-03 15:26 | disposition home or self-care (01) ==
LOC: HO.HVNA 15:25
PROVIDERS: Visit Provider Internal Medicine
DX: B99.9 Unspecified infectious disease (principal)
CPT/HCPCS: 36415; 80048; 82550; 85025

== ENCOUNTER 2024-11-09 15:40 | Outpatient (REF) | payer MEDICARE, MEDICAID, SELFPAY ==
[2024-11-09 16:34] LABS: MANUAL DIFF FLAG NO
[2024-11-09 17:02] LABS: Basophils Percent Auto 0.7 % (0-2); Eosinophils Absolute Auto 0.2 X10*3/uL (0.0-0.4); Eosinophils Percent Auto 4.5 % (0-4); Hematocrit 41.9 % (42.0-52.0); Hemoglobin 13.4 g/dl (14.0-18.0); Imm Gran Abs Auto 0.01 X10*3/uL (0.00-0.03); Imm Gran Pct Auto 0.2 % (0.0-0.4); Lymphocytes Absolute Auto 0.9 X10*3/uL (1.2-4.9); Lymphocytes Percent Auto 22.2 % (20-40); Mean Corpuscular Hemoglobin 27.2 pg (27.0-33.0); Mean Platelet Volume 10.1 fL (9.4-12.4); Monocytes Absolute Auto 0.3 X10*3/uL (0.1-1.2); Monocytes Percent Auto 8.2 % (2-11); Neutrophils Absolute Auto 2.6 x10*3/uL (2.0-8.3); Neutrophils Percent Auto 64.2 % (45-73); Platelet Count 191 X10*3/uL (160-400); Red Blood Count 4.93 X10*6/uL (4.60-5.80); Red Cell Distribution Width 12.7 % (11.0-16.0)
[2024-11-09 17:04] LABS: Anion Gap 14 (12-20); Blood Urea Nitrogen 20 mg/dL (9-16); Calcium 10.1 mg/dL (8.4-10.2); Carbon Dioxide 23 mmol/L (22-29); Chloride 106 mmol/L (96-108); Estimated Glomerular Filt Rate > 60; Glucose Random 183 mg/dL (60-115); Potassium 4.4 mmol/L (3.3-5.1); Sodium 139 mmol/L (135-145)
--- OUTSIDE RECORDS SUMMARY | 2024-11-09 18:10 | XMS_ITS | Encounter Summary ---
Author Organization [facility] Address [address] [place] [address] Phone Care Team Providers Care Supervisor Shaving And Splitting Name Role Phone [facility] [place] Primary Care Provider [phone] Encounter Details Date Type Department Care Team (Late Contact Info) Description 02/22/2023 Documentation Only [facility] [address] [place] [address] Hank Cho PA Social History Tobacco Use [...] [facility] [address] [place] [address] Mick Badillo MD [address] [place] [address] [place] [phone] documented as of this encounter Visit Diagnoses Not on filedocumented in this encounter Care Teams Supervisor Shaving And Splitting Relationship Specialty Start Date End Date Maritza Alfonso 230 [place] [address] PCP - General 06/26/22 documented as of this encounter
--- OUTSIDE RECORDS SUMMARY | 2024-11-09 18:10 | XMS_ITS | Encounter Summary ---
Author Organization [facility] Address [address] [place] [address] Phone Care Team Providers Care Press Feeder Name Role Phone [facility] [place] Primary Care Provider [phone] Encounter Details Date Type Department Care Team (Late Contact Info) Description 06/22/2022 Documentation Only [facility] [address] [place] [address] Hank Cho PA Social History Tobacco Use [...] Visit [facility] [address] [place] [address] Mick Badillo MD [address] [place] [address] [place] [address] documented as of this encounter Visit Diagnoses Not on filedocumented in this encounter Care Teams Press Feeder Relationship Specialty Start Date End Date Maritza Alfonso 230 [place] [address] PCP - General 06/26/22 documented as of this encounter
--- OUTSIDE RECORDS SUMMARY | 2024-11-09 18:10 | XMS_ITS | Encounter Summary ---
Author Organization [facility] Address [address] [place] [address] Phone Care Team Providers Care Material Mixer Name Role Phone Kaden [place] Primary Care Provider [phone] Encounter Details Date Type Department Care Team (Late Contact Info) Description 06/01/2022 Documentation Only [facility] [address] [place] [address] Hank Cho PA Social History Tobacco Use [...] Visit [facility] [address] [place] [address] Mick Badillo MD [address] [place] [address] [place] [address] documented as of this encounter Visit Diagnoses Not on filedocumented in this encounter Care Teams Material Mixer Relationship Specialty Start Date End Date Maritza Alfonso 230 [place] [address] PCP - General 06/26/22 documented as of this encounter
--- OUTSIDE RECORDS SUMMARY | 2024-11-09 18:10 | XMS_ITS | Encounter Summary ---
Author Organization [facility] Address [address] [place] [address] Phone Care Team Providers Care Instrument Repair Technician Name Role Phone [facility] Primary Care Provider [phone] Encounter Details Date Type Department Care Team (Late Contact Info) Description 06/29/2024 Orders Only [facility] [address] [place] [address] Hank Cho PA Chronic kidney [...] Visit [facility] [address] [place] [address] Mick Badillo MD [address] [place] [address] [place] [address] documented as of this encounter Visit Diagnoses Diagnosis Chronic kidney disease, stage 2 (mild) Type 2 diabetes mellitus, not otherwise specified (HCC) Essential (primary) hypertension Microalbuminuria documented in this encounter Care Teams Instrument Repair Technician Relationship Specialty Start Date End Date [facility] [address] [place] [address] PCP - General 06/26/22 documented as of this encounter
--- OUTSIDE RECORDS SUMMARY | 2024-11-09 18:10 | XMS_ITS | Encounter Summary ---
Author Organization [facility] Address [address] [place] [address] Phone Care Team Providers Care Photographer'S Model Name Role Phone [facility] Primary Care Provider [phone] Encounter Details Date Type Department Care Team (Late Contact Info) Description 10/25/2023 Documentation Only [facility] [address] [place] [address] Diane Morrison [address] [place] [address] Social History Tobacco Use Types [...] Visit [facility] [address] [place] [address] Mick Badillo MD [address] [place] [address] [place] [address] documented as of this encounter Visit Diagnoses Not on filedocumented in this encounter Care Teams Photographer'S Model Relationship Specialty Start Date End Date [facility] 230 [place], [place] [phone] PCP - General 06/26/22 documented as of this encounter
--- OUTSIDE RECORDS SUMMARY | 2024-11-09 18:10 | XMS_ITS | Encounter Summary ---
Author Organization [facility] Address [address] [place] [address] Phone Care Team Providers Care Icu Registered Nurse Name Role Phone Kaden [place] Primary Care Provider [phone] Encounter Details Date Type Department Care Team (Late Contact Info) Description 05/31/2022 Documentation Only [facility] [address] [place] [address] Hank Cho PA Social History Tobacco Use [...] Visit [facility] [address] [place] [place] [address] Mick Badillo MD [address] [place] [address] [place] [phone] documented as of this encounter Visit Diagnoses Not on filedocumented in this encounter Care Teams Icu Registered Nurse Relationship Specialty Start Date End Date Maritza Alfonso 230 [place] [address] PCP - General 06/26/22 documented as of this encounter
--- OUTSIDE RECORDS SUMMARY | 2024-11-09 18:10 | XMS_ITS | Encounter Summary ---
Author Organization [facility] Address [address] [place] [address] Phone Care Team Providers Care Promotions Firm Accounts Manager Name Role Phone Kaden [place] Primary Care Provider [phone] Encounter Details Date Type Department Care Team (Late Contact Info) Description 05/28/2022 Documentation Only [facility] [address] [place] [address] Hank Cho PA Social History Tobacco Use [...] Visit [facility] [address] [place] [address] Mick Badillo MD [address] [place] [address] [place] [address] documented as of this encounter Visit Diagnoses Not on filedocumented in this encounter Care Teams Promotions Firm Accounts Manager Relationship Specialty Start Date End Date Maritza Alfonso 230 [place] [address] PCP - General 06/26/22 documented as of this encounter
--- OUTSIDE RECORDS SUMMARY | 2024-11-09 18:10 | XMS_ITS | Encounter Summary ---
Author Organization [facility] Address [address] [place] [address] Phone Care Team Providers Care Foundry Technician Name Role Phone [facility] Primary Care Provider [phone] Encounter Details Date Type Department Care Team (Late Contact Info) Description 10/25/2023 Documentation Only [facility] [address] [place] [address] Diane Morrison [address] [place] [address] Social History Tobacco Use Types [...] [facility] [address] [place] [address] Mick Badillo MD [address] [place] [address] [place] [address] documented as of this encounter Visit Diagnoses Not on filedocumented in this encounter Care Teams Foundry Technician Relationship Specialty Start Date End Date [facility] 230 [place], [place] [phone] PCP - General 06/26/22 documented as of this encounter
--- OUTSIDE RECORDS SUMMARY | 2024-11-09 18:10 | XMS_ITS | Clinical Summary ---
Author Organization [facility] [place], Address [address] [place] [address] [place] [address] Phone Care Team Providers Care Scientific Programmer Name Role Phone [facility] Primary Care Provider [phone] Allergies Active Allergy Reactions Criticality Noted Date [...] Visit [facility] [place], [address] [facility] [place] [address] Mick Badillo MD [address] [facility] [place] [address] Health Maintenance Due Date Last Done Comments [...] Name Priority Date/Time Associated Diagnosis Comments LAB AGRICULTURAL EXTENSION EDUCATOR Routine 01/29/2018 12:00 AM EDT from Last 3 Months or Most Recently Relevant to Health Maintenance Results * Lab Lpn Medical Assistant (01/29/2018 12:00 AM EDT) Hemoglobin A1C 7.8 % [facility] 01/29/2018 us [facility] Conversion LAB [id number] LICITED RESULTS Final Result [facility] from Last 3 Months or Most Recently Relevant to Health Maintenance Insurance [place]ARE Care Teams Scientific Programmer Relationship Specialty Start Date End Date [facility] 230 [place] [address] PCP - General 06/26/22
--- OUTSIDE RECORDS SUMMARY | 2024-11-09 18:10 | XMS_ITS | Encounter Summary ---
Author Organization [facility] Address [address] [place] [address] Phone Care Team Providers Care Chief Hydroelectric Station Operator Name Role Phone [facility] Primary Care Provider [phone] Encounter Details Date Type Department Care Team (Late Contact Info) Description 09/02/2023 Orders Only [facility] [address] [place] [address] Hank Cho PA Chronic kidney [...] [facility] [address] [place] [address] Mick Badillo MD [address] [place] [address] [place] [address] documented as of this encounter Visit Diagnoses Diagnosis Chronic kidney disease, stage 2 (mild) Essential (primary) hypertension Type 2 diabetes mellitus, not otherwise specified (HCC) documented in this encounter Care Teams Chief Hydroelectric Station Operator Relationship Specialty Start Date End Date [facility] [address] [place] [address] PCP - General 06/26/22 documented as of this encounter
--- OUTSIDE RECORDS SUMMARY | 2024-11-09 18:10 | XMS_ITS | Encounter Summary ---
Author Organization [facility] Address [address] [place] [address] Phone Care Team Providers Care Manager Utilization Review Name Role Phone [facility] Primary Care Provider [phone] Encounter Details Date Type Department Care Team (Late Contact Info) Description 05/31/2022 Documentation Only [facility] [address] [place] [address] Alexander Zhou MD [address] [place] [address] [place] [address] Social History Tobacco Use Types [...] [facility] [address] [place] [address] Mick Badillo MD [address] [facility] [place] [address] documented as of this encounter Visit Diagnoses Not on filedocumented in this encounter Care Teams Manager Utilization Review Relationship Specialty Start Date End Date [facility] [address] [place] [id number] PCP - General 06/26/22 documented as of this encounter
--- OUTSIDE RECORDS SUMMARY | 2024-11-09 18:10 | XMS_ITS | Encounter Summary ---
Author Organization [facility] Address [address] [place] [address] Phone Care Team Providers Care Women'S Apparel Salesperson Name Role Phone Kaden Maritza Primary Care Provider [phone] Encounter Details Date Type Department Care Team (Late Contact Info) Description 02/25/2023 Documentation Only [facility] [address] [place] [address] Hank Cho PA Social History Tobacco Use [...] Visit [facility] [address] [place] [address] Mick Badillo MD [address] [place] [address] [place] [address] documented as of this encounter Visit Diagnoses Not on filedocumented in this encounter Care Teams Women'S Apparel Salesperson Relationship Specialty Start Date End Date Maritza Alfonso 230 [place] [address] PCP - General 06/26/22 documented as of this encounter
--- OUTSIDE RECORDS SUMMARY | 2024-11-09 18:10 | XMS_ITS | Encounter Summary ---
Author Organization [facility] Address [address] [place] [address] Phone Care Team Providers Care Soldering Machine Tender Name Role Phone Kaden [place] Primary Care Provider [phone] Encounter Details Date Type Department Care Team (Late Contact Info) Description 02/26/2023 Documentation Only [facility] [address] [place] [address] Hank Cho PA Social History Tobacco Use [...] [facility] [address] [place] [address] Mick Badillo MD [address] [place] [address] [place] [address] documented as of this encounter Visit Diagnoses Not on filedocumented in this encounter Care Teams Soldering Machine Tender Relationship Specialty Start Date End Date Maritza Alfonso 230 [place] [address] PCP - General 06/26/22 documented as of this encounter
--- OUTSIDE RECORDS SUMMARY | 2024-11-09 18:10 | XMS_ITS | Encounter Summary ---
Author Organization [facility] Address [address] [place] [address] Phone Care Team Providers Care Housing Project Manager Name Role Phone [facility] Primary Care Provider [phone] Encounter Details Date Type Department Care Team (Late Contact Info) Description 07/07/2024 Documentation Only [facility] [address] [place] [address] Diane Morrison [address] [place] [address] Social History Tobacco Use Types [...] Visit [facility] [address] [place] [address] Mick Badillo MD [address] [place] [address] [place] [address] documented as of this encounter Visit Diagnoses Not on filedocumented in this encounter Care Teams Housing Project Manager Relationship Specialty Start Date End Date [facility] [address] [place], [place] [phone] PCP - General 06/26/22 documented as of this encounter
== END 2024-11-09 15:41 | disposition home or self-care (01) ==
LOC: HO.HVNA 15:40
PROVIDERS: Visit Provider Internal Medicine
DX: B99.9 Unspecified infectious disease (principal)
CPT/HCPCS: 36415; 80048; 82550; 85025

== ENCOUNTER 2024-11-11 14:04 | Outpatient (AMB) | payer MEDICARE, MEDICAID, SELFPAY ==
--- NOTE | 2024-11-11 14:05 | MHC.OFFVIS ---
Vital Signs 11/11/24 14:38 Height 6 ft Weight 171 lb BMI 23.2 Pulse 63 Pulse Source Pulse Oximeter Temp 98.6 F Temp Source Oral Pulse Oximetry (%) 99 Oxygen Delivery Method Room Air Intake Visit Reasons: Osteo/picc line/ Allergies No Known Allergies Allergy (Verified 11/11/24 14:38) HPI HPI Osteo/picc line/: Details: He is doing well with left foot OM He has been on six weeks IV Daptomycin and is supposed to end on 11/13. He has no complaints. [facility] Medical History Leucopenia HTN (hypertension) High cholesterol Diabetes Other and unspecified hyperlipidemia Type 2 diabetes mellitus with unspecified complications Atherosclerotic cardiovascular disease Surgical History History of incision and drainage (~12/2017) Family History Father Liver disease Mother Diabetes Heart attack Sister Diabetes Kidney disease Stomach cancer Social History Household Members: None Housing: Apartment Are you a primary assisted living care manager to a significant other at home: No Do you presently have visiting nurse or other home services: No Alcohol intake: former Patient Tobacco Use Status: Never used Tobacco Advance Directives Date on File: 04/05/22 service: No Current occupational status: disabled Review of Systems Const All systems reviewed & are unremarkable except as noted in HPI and below Physical Exam Vital Signs: Last Vital Signs Temp 98.6 F 11/11/24 14:38 Pulse 63 11/11/24 14:38 Pulse Ox 99 11/11/24 14:38 Oxygen Delivery Method Room Air 11/11/24 14:38 BMI result Body Mass Index 23.2 Const Other: General: cooperative Orientation/consciousness: patient oriented x3 HEENT Head: Yes normal to inspection Mouth: Normal oral and palatal mucosa present Eyes General: appearance normal, both eyes and all related structures Pupils: Equal, round and reactive pupils present Resp Effort & Inspection: normal respiratory effort Cardio Rate: regular rate Rhythm: regular rhythm GI Palpation (GI): Soft to palpation and nontender General: Yes no CVA tenderness Back/Spine/Pelvis Back: no CVA tenderness Skin General skin exam: no rashes or lesions noted Neuro General: patient oriented x3 Cranial nerves: Yes CN's II-XII intact bilaterally and Yes Equal, round and reactive pupils present Extrem Other: healing left foot Psych Appearance: grossly normal Assessment & Plan Assessment & Plan (1) Foot osteomyelitis, left: Code(s): M86.9 - Osteomyelitis, unspecified Category: Medical Plan He is improving. Finish IV Daptomycin as planned. Give Doxycycline for month after. Orders: Orders IR cvc remove any age 0311/16/24 M86.9 - Osteomyelitis, unspecified Medications: New doxycycline hyclate 100 mg PO BID 60 caps 0RF 30 days Coding Level of Care Code Est Pt Level 3 (57421) Diagnoses Foot osteomyelitis, left M86.9
--- NOTE | 2024-11-11 14:24 | A.OFFVIS_ITS ---
Vital Signs 11/11/24 14:38 Height 6 ft Weight 171 lb BMI 23.2 Pulse 63 Pulse Source Pulse Oximeter Temp 98.6 F Temp Source Oral Pulse Oximetry (%) 99 Oxygen Delivery Method Room Air Intake Visit Reasons: Osteo/picc line/ Research And Evaluation Manager Required: Yes Research And Evaluation Manager Services: Research And Evaluation Manager Present Research And Evaluation Manager Name: Yasmany Birch CMA Information Interpreted: clinical only Allergies No Known Allergies Allergy (Verified 11/11/24 14:38) [facility] Medical History Leucopenia HTN (hypertension) High cholesterol Diabetes Other and unspecified hyperlipidemia Type 2 diabetes mellitus with unspecified complications Atherosclerotic cardiovascular disease Surgical History History of incision and drainage (~12/2017) Family History Father Liver disease Mother Diabetes Heart attack Sister Diabetes Kidney disease Stomach cancer Social History Household Members: None Housing: Apartment Are you a primary healthcare corporate account director to a significant other at home: No Do you presently have visiting nurse or other home services: No Alcohol intake: former Patient Tobacco Use Status: Never used Tobacco Advance Directives Date on File: 04/05/22 service: No Current occupational status: disabled Physical Exam Vital Signs: Last Vital Signs Temp 98.6 F 11/11/24 14:38 Pulse 63 11/11/24 14:38 Pulse Ox 99 11/11/24 14:38 Oxygen Delivery Method Room Air 11/11/24 14:38 BMI result Body Mass Index 23.2 Assessment & Plan Assessment & Plan Medications: New doxycycline hyclate 100 mg PO BID 30 days 60 caps 0RF Coding
[2024-11-11 14:38] VITALS: PULSE 63; TEMP 37; O2SAT 99; BMI 23.2
--- OUTSIDE RECORDS SUMMARY | 2024-11-11 16:38 | XMS_ITS | Encounter Summary ---
Author Organization [employer] Address [address] [place] [address] Care Team Providers Care Animal Control Officer Name Role Phone [facility] Primary Care Provider Encounter Details Date Type Department Care Team ([facility] st Contact Info) Description 11/09/2024 Orders Only [facility] [address] [place], [place] [phone] Shayna Bryant MD [address] [place], [place] [phone] Social History Tobacco Use Types Packs/Day Years [...] Description 12/25/2024 1:00 PM EDT Office Visit [facility] [address] [place] [address] [facility] [address] [place] [address] documented as of this encounter Procedures Procedure Name Priority Date/Time Associated Diagnosis Comments CBC WITH AUTO DIFFERENTIAL Routine 11/09/2024 3:40 PM EDT CREATINE KINASE, TOTAL Routine 11/09/2024 3:40 PM EDT BASIC METABOLIC PANEL Routine 11/09/2024 3:40 PM EDT documented in this encounter Results * Creatine Kinase, Total (11/09/2024 3:40 PM EDT) Creatine Kinase Total 60 38 - 174 U/L [facility] 11/09/2024 3:40 PM EDT 11/09/2024 4:33 PM EDT Shayna Bryant MD LAB BLOOD ORDERABLES Final Res ult Performing Organization Address [facility] de Phone Number [facility] [address] [place] [phone] * (ABNORMAL) Basic Metabolic Panel (11/09/2024 3:40 PM EDT) [facility] Sodium 139 135 - 145 mmol/L [facility] Potassium 4.4 3.3 - 5.1 mmol/L [facility] Chloride 106 96 - 108 mmol/L [facility] Carbon Dioxide 23 22 - 29 mmol/L [facility] Anion Gap 14 12 - 20 [facility] Urea Nitrogen (BUN) 20(H) 9 - 16 mg/dL [facility] Creatinine, Serum 0.88 0.5 - 1.4 mg/dL [facility] Estimated Glomerular Filt Rate >60 [facility] Comment:Chronic Kidney Disea se: Estimated GFR < 60 mL/min/1.01o0Aidekq Kidney Disease: Estimated GFR < 15 mL/min/1.73m2 Glucose 183(H) 60 - 115 mg/dL [facility] Calcium 10.1 8.4 - 10.2 mg/dL [facility] 11/09/2024 3:40 PM EDT 11/09/2024 4:33 PM EDT Shayna Bryant MD LAB BLOOD ORDERABLES Final Res ult Performing Organization Address [facility] Co de Phone Number [facility] [address] [place] [address] [phone] * (ABNORMAL) CBC auto differential (11/09/2024 3:40 PM EDT) Pathologist [facility] White Blood Count 4.0(L) 4.8 - 10.8 X10*3/uL [facility] Red Blood Count 4.93 4.60 - 5.80 X10*6/uL [facility] Hemoglobin 13.4(L) 14.0 - 18.0 g/dl [facility] Hematocrit 41.9(L) 42.0 - 52.0 % [facility] Mean Corpuscular Volume 85.0 80.0 - 98.0 fL [facility] Mean Corpuscular Hemoglobin 27.2 27.0 - 33.0 pg [facility] Mean Corpuscular HGB Conc 32.0 31.0 - 36.0 g/dl [facility] Red Cell Distribution Width 12.7 11.0 - 16.0 % [facility] Platelet Count 191 160 - 400 X10*3/uL [facility] Mean Platelet Volume 10.1 9.4 - 12.4 fL [facility] Neutrophils Percent Auto 64.2 45 - 73 % [facility] Imm Gran Pct Auto 0.2 0.0 - 0.4 % [facility] Lymphocytes Percent Auto 22.2 20 - 40 % [facility] Monocytes Percent Auto 8.2 2 - 11 % [facility] Eosinophils Percent Auto 4.5(H) 0 - 4 % [facility] Basophils Percent Auto 0.7 0 - 2 % [facility] NRBC Pct Auto 0.0 0.0 - 0.2 /100WBC [facility] Neutrophils Absolute Auto 2.6 2.0 - 8.3 x10*3/uL [facility] Imm Gran Abs Auto 0.01 0.00 - 0.03 X10*3/uL [facility] Lymphocytes Absolute Auto 0.9(L) 1.2 - 4.9 X10*3/uL [facility] Monocytes Absolute Auto 0.3 0.1 - 1.2 X10*3/uL [facility] Eosinophils Absolute Auto 0.2 0.0 - 0.4 X10*3/uL [facility] Basophils Absolute Auto 0.0 0.0 - 0.2 X10*3/uL [facility] NRBC Abs Auto 0.000 0.0 - 0.012 X10*3/uL [facility] 11/09/2024 3:40 PM EDT 11/09/2024 4:33 PM EDT us Shayna Bryant MD LAB BLOOD ORDERABLES Final Res ult [facility] [address] [place] [phone] documented in this encounter Visit Diagnoses Not on filedocumented in this encounter Additional Health Concerns Assessment Noted Time PHQ-9 Depression Total Score: 0 01/15/20 24 9:49 AM EDT documented as of this encounter Care Teams Animal Control Officer Relationship Specialty Start Date End Date Maritza Alfonso FNP [address] [place] [phone] PCP - General Family Medicine 05/24/22 Chetan MEYERS 10/21/24 documented as of this encounter
--- OUTSIDE RECORDS SUMMARY | 2024-11-11 16:38 | XMS_ITS | Encounter Summary ---
Author Organization [facility] Address [address] [place] [address] Phone Care Team Providers Care Neurology Nurse Name Role Phone Kaden Maritza Primary Care Provider [phone] Encounter Details Date Type Department Care Team (Late Contact Info) Description 02/26/2023 Documentation Only [facility] [address] [phone] Hank Cho PA Social History Tobacco Use [...] Visit [facility] [address] [place] [address] Mick Badillo MD [address] [place] [address] [place] [phone] documented as of this encounter Visit Diagnoses Not on filedocumented in this encounter Care Teams Neurology Nurse Relationship Specialty Start Date End Date Maritza Alfonso [address] [place] [address] PCP - General 06/26/22 documented as of this encounter
--- OUTSIDE RECORDS SUMMARY | 2024-11-11 16:38 | XMS_ITS | Encounter Summary ---
Author Organization [facility] Address [address] [place] [address] Phone Care Team Providers Care Cashier Credit Name Role Phone [facility] Primary Care Provider [phone] Encounter Details Date Type Department Care Team (Late Contact Info) Description 05/31/2022 Documentation Only [facility] [address] [place] [address] Alexander Zhou MD [address] [place] [address] [place] [address] Social History Tobacco Use Types [...] Visit [facility] [address] [place] [address] Mick Badillo MD [address] [place] [address] documented as of this encounter Visit Diagnoses Not on filedocumented in this encounter Care Teams Cashier Credit Relationship Specialty Start Date End Date [facility] [address] [place] [phone] PCP - General 06/26/22 documented as of this encounter
--- OUTSIDE RECORDS SUMMARY | 2024-11-11 16:38 | XMS_ITS | Encounter Summary ---
Author Organization [employer] [facility] Address [address] [place] [address] Care Team Providers Care Ibm Bpm Developer Name Role Phone Maritza Alfonso Primary Care Provider [phone] Reason for Referral * Consultation (Routine) - Authorized Specialty Diagnoses / Procedures Referred By Contlesli t Referred To Contact Diagnoses Osteomyelitis of left foot, unspecified type (CMS/HCC) Maritza Alfonso FNP [address] [place] [address] Phone: tel: fax: Shayna Bryant MD [address] [place] [address] Phone: tel: Referral ID Status Reason Start Date Expiration Date Visits Requested Visits Authorized [id number] Authorized Specialty Services Required 11/02/2024 11/02/2025 1 1 Reason for Visit * Reason Comments Follow-up Diabetes Encounter Details Date Type Department Care Team (Late st Contact Info) Description 10/26/2024 9:45 AM EST Office Visit [facility] [address] [place], [place] [phone] Maritza Alfonso FNP [address] [place], [place] [phone] Type 2 diabetes mellitus with hyperglycemia, without [...] documented in this encounter Progress Notes * [facility], ELECTRICAL APPLIANCE REPAIRER - 10/26/2024 9:45 AM EST SUBJECTIVE: Néstor Hardin is a 63 y.o. year old male with T2DM, CKD, CAD, hx of osteomyelitis with resection of right great toe who presents for DM follow up . Acute Concerns: Elevated blood sugars. Patient thinks that Jardiance is causing GI upset. Stopped taking x 2 days. Interval History Hospitalized at [facility] 10/16/24- 10/18 for osteomyelitis left foot. IV vancomycin and Zosyn initially. PICC line placed with plan for daptomycin x 4 weeks. VNA is coming. Patient is self administering daptomycin. Referred to [facility] wound clinic and has upcoming appt this [...] Social History Narrative Current living environment: Has [employer] [facility]. Lives alone Children: 2 Activities: Enjoys walking, [...] place outpatient referral. Follow-up as scheduled with [facility] wound care- - ED precautions advised to [...] facility-administered medications on file prior to visit. Greek Translation: Provided by [facility] staff member KATTY Sahu documented in this encounter Plan of Treatment Upcoming Encounters Date Type Department Care Team (Late st Contact Info) Description 12/25/2024 1:00 PM EDT Office Visit [facility] [address] [place] [address] [place] [facility] [address] [place] [address] Scheduled Referrals Name Type Priority Associated Diagnoses Orde r Schedule Referral to Infectious Disease Outpatient Referral Routine Osteomyelitis of left foot, unspecified type (CMS/HCC) Expected: 11/02/2024 (Approximate), Expires: 11/02/2025 documented as of this encounter Procedures Procedure Name Priority Date/Time Associated Diagnosis Comments POCT GLUCOSE Routine 10/26/2024 9:44 AM EST Type 2 diabetes mellitus with hyperglycemia, without long-term current use of insulin ([facility]) documented in this encounter Results * (ABNORMAL) POCT Glucose (10/26/2024 9:44 AM EST) [facility] Signature Glucose Blood, POC 233(A) 60 - 200 mg/dL QC Media Lot # [id number] Lot# Expiration Date Blood Capillary blood specimen / Unknown 10/26/2024 9:44 AM EST [facility] POINT OF CARE TEST ENTER/EDIT ORDERABLES Final Result documented in this encounter Visit Diagnoses Diagnosis Type 2 diabetes mellitus with hyperglycemia, without long-term current use of insulin ([facility])- Primary Nausea Nausea alone Osteomyelitis of left foot, unspecified type ([facility]/HCC) documented in this encounter Additional Health Concerns Assessment Noted Time PHQ-9 Depression Total Score: 0 01/15/20 24 9:49 AM EDT documented as of this encounter Care Teams Ibm Bpm Developer Relationship Specialty Start Date End Date Maritza Alfonso FNP [address] [place] [address] PCP - General Family Medicine 05/24/22 Chetan MEYERS 10/21/24 documented as of this encounter
--- OUTSIDE RECORDS SUMMARY | 2024-11-11 16:38 | XMS_ITS | Clinical Summary ---
Author Organization [employer] Address [address] [facility] [address] [place] [address] Care Team Providers Care Rehabilitation Services Director Name Role Phone [facility] Primary Care Provider Allergies Active Allergy Reactions Criticality Noted Date [...] hyperglycemia, with long-term current use of insulin ([facility]) 1 kit before breakfast, before lunch, before evening meal, and at bedtime. 1 kit 09/20/19 23 Active TRUEplus Lancets 33G miscIndications :Type 2 diabetes mellitus with hyperglycemia, with long-term current use of insulin ([facility]) TEST BLOOD SUGAR 4 TIMES A DAY 100 each 11 04/09/20 23 Active metFORMIN XR (Glucophage-XR) 500 MG 24 hr tabletIndicatio ns:Type 2 diabetes mellitus with hypoglycemia without coma, without long-term current use of insulin ([facility]) Take 1 tablet (500 mg) [...] without long-term current use of insulin ([facility]) Inject 3 mg under the skin 1 (one) time per week. 2 mL 10/26/19 25 026 Active Alcohol Swabs (Alcohol Prep) padsIndications :Type 2 diabetes mellitus with hyperglycemia, without long-term current use of insulin ([facility]) Use one pad each to prep skin prior to injection as directed 100 each 10/26/19 25 Active ondansetron (Zofran) 4 MG tabletIndicatio ns:Nausea Take 1 tablet (4 mg) by mouth every 8 (eight) hours if needed for nausea or vomiting. 30 tablet 10/26/19 25 Active Lancets 33G miscIndications :Type 2 diabetes mellitus with hyperglycemia, without long-term current use of insulin ([facility]) Use as directed to check blood sugar once daily 100 each 10/30/19 25 Active glucose blood (FREESTYLE LITE) test stripIndication s:Type 2 diabetes mellitus with hyperglycemia, with long-term current use of insulin ([facility]) TEST BLOOD SUGAR ONCE DAILY 100 strip 10/30/19 25 Active Glucose Blood (Blood Glucose Test) stripIndication s:Type 2 diabetes mellitus with hyperglycemia, without long-term current use of insulin ([facility]/HCC) USE TO TEST BLOOD SUGAR ONCE A DAY 50 strip 11/03/19 25 Active Blood Glucose Monitoring Suppl (GNP Easy Touch Glucose Meter) deviceIndicatio ns:Type 2 diabetes mellitus with hyperglycemia, without long-term current use of insulin ([facility]) USE TO TEST BLOOD SUGAR ONCE A DAY 1 each 11/03/19 25 Active doxycycline (Vibramycin) 100 MG capsuleIndicati ons:Osteomyelit is of left foot, unspecified type ([facility]) Take 1 capsule (100 mg) by mouth 2 times daily. Take with at least 8 ounces (large glass) of water, do not lie down for 30 minutes after 60 capsule 11/03/19 25 025 Active UltiGuard SafePack Pen Needle 32G X 4 MM miscIndications :Type 2 diabetes mellitus with diabetic chronic kidney disease, unspecified CKD stage, unspecified whether watermelon harvesting supervisor insulin use ([facility]) USE ONCE DAILY WITH INSULIN 100 each 3 08/16/20 22 025 Discontinued glucose blood (FREESTYLE LITE) test stripIndication s:Type 2 diabetes mellitus with hyperglycemia, with long-term current use of insulin ([facility]) TEST BLOOD SUGAR 4 TIMES A DAY 100 strip 11 04/09/20 23 025 Discontinued(Re order (will not trigger notification to Pharmacy)) dulaglutide (Trulicity) 1.5 MG/0.5ML solution pen-injectorInd ications:Type 2 diabetes mellitus with hyperglycemia, without long-term current use of insulin ([facility]) Inject 1.5 mg under the skin 1 (one) time per week. 4 each 11 01/15/20 24 025 Discontinued Lancets 33G miscIndications :Type 2 diabetes mellitus with hyperglycemia, without long-term current use of insulin ([facility]) Use as directed to check blood sugar four times daily 100 each 3 10/26/19 25 025 Discontinued(Re order (will not trigger notification to Pharmacy)) Blood Glucose Monitoring Suppl (GNP Easy Touch Glucose Meter) deviceIndicatio ns:Type 2 diabetes mellitus with hyperglycemia, without long-term current use of insulin ([facility]) Use as directed to check blood sugar four times daily 1 each 10/26/19 25 025 Discontinued glucose blood test stripIndication s:Type 2 diabetes mellitus with hyperglycemia, without long-term current use of insulin (CMS/HCC) Use as directed to check blood sugar four times daily 100 each 12 10/26/19 25 025 Discontinued Active Problems Problem [...] Declines PSA: 04/2023 Vision Exam: Referred to [facility] 04/2023 Immunizations:Declines PCV 20 04/2023 Assessment & [...] arteriosclerosis 08/13/2022 Overview (04/03/2023): ?? Folllowed by [facility] cardiology Dr. Morales ?? 01/2023 Negative Echo. Negative stress test Leukopenia 03/26/2022 Overview (04/03/2023): ?? Followed by hematology/oncology at [facility]. Last seen apporx 6 months ago. Reports [...] toe amputation Eye Exam: Referred back to [facility] optometry 04/2023 Statin: Yes ASA: Yes YASHIRA/ARB: [...] previously ordered labs. Will re order to [facility] lab today Essential (primary) hypertension 08/12/2012 Overview [...] Encounters Date Type Department Care Team Description 11/09/2024 Orders Only [facility] [address] [place] [address] Shayna Bryant MD 10/30/2024 Refill [facility] [address] [place] [address] Maritza Alfosno FNP Type 2 diabetes mellitus with hyperglycemia, without long-term current use of insulin ([facility]) 10/30/2024 Refill [facility] [address] [place] [address] Maritza Alfonso FNP Type 2 diabetes mellitus with hyperglycemia, without long-term current use of insulin ([facility]); Type 2 diabetes mellitus with hyperglycemia, with long-term current use of insulin ([facility]) 10/30/2024 Telephone [facility] [address] [place] [address] Maritza Alfonso FNP Prior Authorization; Plan of care 10/26/2024 9:45 AM EST Office Visit [facility] [address] [place] [address] [phone] [place] [address] Type 2 diabetes mellitus with hyperglycemia, without long-term current use of insulin ([facility]) (Primary Dx); Nausea; Osteomyelitis of left foot, unspecified type (CMS/HCC) 10/26/2024 Travel 10/16/2024 Orders Only GENERIC EXTERNAL DATA DEPARTMENT Provider, Generic External Data 10/16/[address] [address] [facility] 10/12/2024 Patient Outreach [address] [address] [facility] Pre-visit Planning (SDOH screening negative and tobacco screening negative) 10/08/2024 Orders Only [facility] [address] [place] [address] [facility] Wound of left foot (Primary Dx) 10/07/2024 11:00 AM EST Office Visit [address] [address] [facility] Type 2 diabetes mellitus with hyperglycemia, without long-term current use of insulin ([facility]) (Primary Dx); Wound of left foot 10/07/2024 Telephone [facility] [address] [place] [phone] [facility] MRI FOOT ORDER 10/07/2024 Travel 10/02/[address] [address] Rosa Solano, RN Results 09/28/[address] [address] [facility] 08/13/2024 1:00 PM EST Office Visit [facility] [address] [place] [address] [phone] Catarina Samayoa MD Localized swelling of left foot (Primary Dx); Charcot foot due to diabetes mellitus ([facility]); Hx of diabetic foot ulcer [...] is your housing situation today? I have beckyaminata alvarado 06/17/[address] you [...] the past 12 months, has t he [employer], oil or water [employer] threatened to shut off services in your [...] Description 12/25/2024 1:00 PM EDT Office Visit [facility] [address] [place] [address] [facility] [address] [place] [address] Health Maintenance Due Date Last Done Comments [...] Procedure Name Priority Date/Time Associated Diagnosis Comments CREATINE KINASE, TOTAL Routine 11/09/2024 3:40 PM EDT BASIC METABOLIC PANEL Routine 11/09/2024 3:40 PM EDT CBC WITH AUTO DIFFERENTIAL Routine 11/09/2024 3:40 PM EDT POCT GLUCOSE Routine 10/26/2024 9:44 AM EST Type 2 diabetes mellitus with hyperglycemia, without long-term current use of insulin ([facility]) SED RATE BY MODIFIED WESTERGREN Routine [...] without long-term current use of insulin ([facility]/HCC) XR FOOT 3+ VIEWS LEFT Routine 08/13/2024 11:46 AM EST Localized swelling of left foot Charcot foot due to diabetes mellitus (CMS/HCC) Hx of diabetic foot ulcer AMB REFERRAL TO OPTOMETRY Routine 07/08/2024 Type 2 diabetes mellitus with hypoglycemia without coma, without long-term current use of insulin ([facility]/HCC) ZZZ HISTORICAL HEPATITIS C AB W/REFL TO HCV RNA, QN, PCR Routine 05/24/2022 11:27 AM EDT HIV 1/2 ANTIGEN/ANTIBODY, FOURTH GENERATION W/RFL Routine 05/24/2022 11:27 AM EDT HM COLONOSCOPY Routine 12/28/2013 from Last 3 Months or Most Recently Relevant to Health Maintenance Results * (ABNORMAL) CBC auto differential (11/09/2024 3:40 PM EDT) Only the most recent of3 resultswithin the time period is included. White Blood Count 4.0(L) 4.8 - 10.8 X10*3/uL [facility] Red Blood Count 4.93 4.60 - 5.80 X10*6/uL [facility] Hemoglobin 13.4(L) 14.0 - 18.0 g/dl [facility] Hematocrit 41.9(L) 42.0 - 52.0 % [facility] Mean Corpuscular Volume 85.0 80.0 - 98.0 fL [facility] Mean Corpuscular Hemoglobin 27.2 27.0 - 33.0 pg [facility] Mean Corpuscular HGB Conc 32.0 31.0 - 36.0 g/dl [facility] Red Cell Distribution Width 12.7 11.0 - 16.0 % [facility] Platelet Count 191 160 - 400 X10*3/uL [facility] Mean Platelet Volume 10.1 9.4 - 12.4 fL [facility] Neutrophils Percent Auto 64.2 45 - 73 % [facility] Imm Gran Pct Auto 0.2 0.0 - 0.4 % [facility] Lymphocytes Percent Auto 22.2 20 - 40 % [facility] Monocytes Percent Auto 8.2 2 - 11 % [facility] Eosinophils Percent Auto 4.5(H) 0 - 4 % [facility] Basophils Percent Auto 0.7 0 - 2 % [facility] NRBC Pct Auto 0.0 0.0 - 0.2 /100WBC [facility] Neutrophils Absolute Auto 2.6 2.0 - 8.3 x10*3/uL [facility] Imm Gran Abs Auto 0.01 0.00 - 0.03 X10*3/uL [facility] Lymphocytes Absolute Auto 0.9(L) 1.2 - 4.9 X10*3/uL [facility] Monocytes Absolute Auto 0.3 0.1 - 1.2 X10*3/uL [facility] Eosinophils Absolute Auto 0.2 0.0 - 0.4 X10*3/uL [facility] Basophils Absolute Auto 0.0 0.0 - 0.2 X10*3/uL [facility] NRBC Abs Auto 0.000 0.0 - 0.012 X10*3/uL [facility] 11/09/2024 3:40 PM EDT 11/09/2024 4:33 PM EDT Shayna Bryant MD LAB BLOOD ORDERABLES Final Res ult Performing Organization Address [facility]/ZIP Co de Phone Number [facility] [address] [place] [phone] * Creatine Kinase, Total (11/09/2024 3:40 PM EDT) Creatine Kinase Total 60 38 - 174 U/L [facility] 11/09/2024 3:40 PM EDT 11/09/2024 4:33 PM EDT Shayna Bryant MD LAB BLOOD ORDERABLES Final Res ult Performing Organization Address [facility] Co de Phone Number [facility] [address] [place] [phone] * (ABNORMAL) Basic Metabolic Panel (11/09/2024 3:40 PM EDT) Pathologist [facility] Sodium 139 135 - 145 mmol/L [facility] Potassium 4.4 3.3 - 5.1 mmol/L [facility] Chloride 106 96 - 108 mmol/L [facility] Carbon Dioxide 23 22 - 29 mmol/L [facility] Anion Gap 14 12 - 20 [facility] Urea Nitrogen (BUN) 20(H) 9 - 16 mg/dL [facility] Creatinine, Serum 0.88 0.5 - 1.4 mg/dL [facility] Estimated Glomerular Filt Rate >60 [facility] Comment:Chronic Kidney Disea se: Estimated GFR < 60 mL/min/1.09t3Wqrsag Kidney Disease: Estimated GFR < 15 mL/min/1.73m2 Glucose 183(H) 60 - 115 mg/dL [facility] Calcium 10.1 8.4 - 10.2 mg/dL [facility] 11/09/2024 3:40 PM EDT 11/09/2024 4:33 PM EDT Shayna Bryant MD LAB BLOOD ORDERABLES Final Res ult Performing Organization Address City/[facility]/ZIP Co de Phone Number [facility] [address] [place] [phone] * (ABNORMAL) POCT Glucose (10/26/2024 9:44 AM EST) Only the most recent of2 resultswithin the time period is included. Pathologist [facility] Glucose Blood, POC 233(A) 60 - 200 mg/dL QC Media Lot # [id number] Lot# Expiration Date Blood Capillary blood specimen / Unknown 10/26/2024 9:44 AM EST [facility] RESIDENTIAL FEE APPRAISER POINT OF CARE TEST ENTER/EDIT ORDERABLES Final Result * (ABNORMAL) Sed Rate by Modified Maycol (10/16/2024 6:20 PM EST) Only the most recent of2 resultswithin the time period is included. [facility] Erythrocyte Sedimentation Rate 54(H) 0 - 15 MM/HR [facility] Comment:Patients with polycy themia and many hemoglobin abnormalitiesmay have depressed sed rates whereas patients with anemiamay have elevated sed rates. 10/16/2024 6:20 PM EST 10/16/2024 6:27 PM EST Generic External Data Provider LAB BLOOD ORDERAB LES Final Result Performing Organization Address City/[facility]/ZIP Co de Phone Number [facility] [address] [place] [address] [phone] * (ABNORMAL) C-reactive Protein (10/16/2024 6:20 PM EST) Only the most recent of2 resultswithin the time period is included. Pathologist [facility] C Reactive Protein 1.74(H) < or = 0.50 mg/dL [facility] 10/16/2024 6:20 PM EST 10/16/2024 6:27 PM EST Generic External Data Provider LAB BLOOD ORDERAB LES Final Result Performing Organization Address [facility] de Phone Number [facility] [address] [place] [phone] * Lipase (10/16/2024 6:20 PM EST) Pathologist [facility] Lipase 25 8 - 78 U/L [facility] 10/16/2024 6:20 PM EST 10/16/2024 6:27 PM EST Generic External Data Provider LAB BLOOD ORDERAB LES Final Result Performing Organization Address [facility] de Phone Number [facility] [address] [place] [phone] * Lactic Acid (10/16/2024 6:20 PM EST) [facility] Lactic Acid 1.0 0.5 - 2.0 mmol/L [facility] 10/16/2024 6:20 PM EST 10/16/2024 6:27 PM EST Generic External Data Provider LAB BLOOD ORDERAB LES Final Result Performing Organization Address [facility] de Phone Number [facility] [address] [place] [phone] * (ABNORMAL) Comprehensive Metabolic Panel (10/16/2024 6:20 PM EST) Only the most recent of2 resultswithin the time period is included. Pathologist [facility] Sodium 136 135 - 145 mmol/L [facility] Potassium 4.0 3.3 - 5.1 mmol/L [facility] Chloride 100 96 - 108 mmol/L [facility] Carbon Dioxide 28 22 - 29 mmol/L [facility] Anion Gap 12 12 - 20 [facility] Urea Nitrogen (BUN) 14 9 - 16 mg/dL [facility] Creatinine, Serum 1.24 0.5 - 1.4 mg/dL [facility] Creatinine Clr Calc Pharmacy 63.5 [facility] Comment:eGFR (calculated fro m the MDRD study equation) and eCrCl(calculated from the Cockcroft-Gault equation) are based ondifferent parameters and may not yield comparable results.If eCrCl result is absurd, please check patient'sheight/weight. Estimated Glomerular Filt Rate 59 [facility] Comment:Chronic Kidney Disea se: Estimated GFR < 60 mL/min/1.69p0Hsolua Kidney Disease: Estimated GFR < 15 mL/min/1.73m2 Glucose 248(H) 60 - 115 mg/dL [facility] Calcium 10.0 8.4 - 10.2 mg/dL [facility] Bilirubin, Total 0.3 0.0 - 1.0 mg/dL [facility] Aspartate Amino Transferase 21 5 - 37 U/L [facility] Alanine Aminotransferase 16 0 - 40 U/L [facility] Total Protein 8.8(H) 6.5 - 8.0 g/dL [facility] Albumin Level 4.4 3.5 - 5.0 g/dL [facility] Alkaline Phosphatase 78 39 - 117 U/L [facility] 10/16/2024 6:20 PM EST 10/16/2024 6:27 PM EST us Generic External Data Provider LAB BLOOD ORDERAB LES Final Result [facility] [address] [place] [phone] [phone] * MR Foot w and w/o Contrast Left (10/14/2024 2:44 PM EST) Anatomical Region Laterality Modality Lower Extremities, Foot Left Magnetic Resonance 10/14/2024 2:44 PM EST Narrative 10/14/2024 4:35 PM EST ? [facility] ?[address] ?[place] [address] ? Magnetic Resonance Report ? Signed ? Patient: Octavio Hardin,Andrea ?MR#: [id number] ?? [id number] ? : 1960 ?Acct:[id number] ? Age/Sex: 63 / M ?ADM Date: 10/14/24 ? Loc: HO.MRI ? Attending Dr: Maritza CORONADO ? Ordering Physician: Maritza Alfonso ?? Date of Service: 10/14/24 ?? Procedure(s): MR foot LT wo/w con ?? Accession Number(s): [id number] ? cc: Maritza Alfonso RESIDENTIAL FEE APPRAISER ? EXAMINATION: ?? MR FOOT WITHOUT AND [...] DD/ 1444 ? TD/TT: 10/14/24 1545 ? Homebound Teacher: ? Procedure Note Stan, Image - 10/14/[address] [address] Magnetic Resonance Report Signed Patient: Néstor Chamorro LMR#: [id number] : 1Acct:[id number] Age/Sex: 63 / MADM Date: 10/14/24 Loc: HO.MRI Attending Dr: Maritza Marion RESIDENTIAL FEE APPRAISER [facility] Date of Service: 10/14/24 Procedure(s): MR foot LT wo/w con Accession Number(s): [id number] cc: [facility] EXAMINATION: MR FOOT WITHOUT AND WITH CONTRAST, [...] 10/14/24 1632 DD/ 1444 TD/TT: 10/14/24 1545 Homebound Teacher: [facility] IMG MRI PROCEDURES Final Resu lt * Albumin, Random Urine W/Creatinine (10/08/2024 9:55 AM EST) Creatinine, Urine 98.17 mg/dL [facility] Microalbumin Urine 20.0 mg/L [facility] Microalbum Creatinine Ratio Ur 20.3 <30 ug/mg cr [facility] Comment:Albumin/Creatinine R atio Reference Ranges: Normal: < 30 ug/mg creatinine Microalbuminuria: 30 - 300 ug/mg creatinineClinical Albuminuria: > 300 ug/mg creatinine Urine 10/08/2024 9:55 AM EST 10/08/2024 10:32 AM EST [facility] LAB URINE ORDERABLES Final Re sult [facility] [address] [place] [address] [phone] * Lipid Panel, Standard (10/08/2024 9:55 AM EST) Triglycerides 51 <150 mg/dL [facility] Comment:Desirable Triglyceri de: less than 150 mg/dLBorderline High Triglyceride 150-199 mg/dLHigh Triglyceride: 200-499 mg/dLVery High Triglyceride: greater than or equal to 5OO mg/dL Cholesterol 153 <200 mg/dL [facility] Comment:Desirable Cholestero l: less than 200 mg/dLBorderline High Cholesterol: 200-239 mg/dLHigh Cholesterol: greater than 239 mg/dL LDL Cholesterol Calculated 91 <100 mg/dL [facility] Comment:Desirable LDL: less than 100 mg/dLNear Optimal/Above Optimal LDL: 110- 129 mg/dLBorderline High LDL: 130-159 mg/dLHigh LDL: 160-189 mg/dLVery High LDL: greater than or equal to 190 mg/dL HDL Cholesterol 52 >40 mg/dL [facility] Comment:Desirable HDL: great er than 40 mg/dL Note: This HDL assay may give artificially low results in patients with liver disease. Blood Venous blood specimen / Unknown 10/08/2024 9:55 AM EST 10/08/2024 9:55 AM EST [facility] LAB BLOOD ORDERABLES Final Re sult [facility] [address] [place] [address] [phone] * (ABNORMAL) POCT HGB A1C (10/07/2024 11:04 AM EST) Hemoglobin A1C 8.5(A) 4.0 - 6.0 % Blood 10/07/2024 11:0 4 AM EST [facility] POINT OF CARE TEST ENTER/EDIT ORDERABLES Final Result * XR Foot 3+ Views Left (08/13/2024 11:46 AM EST) Anatomical Region Laterality Modality Lower Extremities, Foot Left Radiogra phic Imaging 08/13/2024 11:4 6 AM EST Narrative 10/02/2024 9:19 AM EST ?[place] [facility] ?[address] ?[place] [address] ?XRay Report ? Signed ? Patient: Octavio Hardin,Andrea ?MR#: [id number] ?? [id number] ? : 1960 ?Acct:[id number] ? Age/Sex: 63 / M ?ADM Date: 08/13/24 ? Loc: HO.HHCX ? Attending Dr: Catarina Samayoa MD ? Ordering Physician: Catarina Samayoa MD ?? Date of Service: 08/13/24 ?? Procedure(s): XR foot LT min 3V ?? Accession Number(s): [id number] ? cc: Catarina Samayoa MD; Maritza Alfonso [facility] ? EXAMINATION: ?? XR FOOT LEFT [...] DD/ 1146 ? TD/TT: 08/13/24 1148 ? Homebound Teacher: SR ? Procedure Note Stan, Image - 10/02/[address] [address] XRay Report Signed Patient: Néstor Chamorro LMR#: [id number] : 1Acct:[id number] Age/Sex: 63 / MADM Date: 08/13/24 Loc: HO.HHCX Attending Dr: Catarina Samayoa MD Ordering Physician: Catraina Samayoa MD Date of Service: 08/13/24 Procedure(s): XR foot LT min 3V Accession Number(s): [id number] cc: Catarina Samayoa MD; [facility] EXAMINATION: XR FOOT LEFT CLINICAL INFORMATION: [...] 10/02/2024 09:16 AM [facility] Dictated By: Sam Gillette MD Signed By: <Electronically signed by Sam Gillette MD in OV> 10/02/24 0916 DD/ 1146 TD/TT: 08/13/24 1148 Homebound Teacher: SR Catarina Samayoa MD IMG XR PROCEDURES Final Re sult * Referral to Optometry (07/08/2024) [facility] OUTPATIENT REFERRAL ORDERABLE S Final Result * HEPATITIS C AB W/REFL TO HCV RNA, QN, PCR (05/24/2022 11:27 AM EDT) HEPATITIS C ANTIBODY NON-REACT ALICIA NON-REACT ALICIA [facility] INDEX 0.06 <1.00 [facility] Comment: ?? HCV antibody was non-reactive. There is no laboratory ?? evidence of HCV infection. ?? In most cases, no further action is required. However, if recent HCV exposure is suspected, a test for HCV RNA (test code 49653) is suggested. ?? For additional information please refer to http://[employer].VIPAAR/faq/SZM05r6 (This link is being provided for informational/ educational purposes only.) ?? 05/24/2022 11:2 7 AM EDT [facility] RESIDENTIAL FEE APPRAISER HISTORICAL/NON ORDERABLE LABS Final Result [facility] [address] * HIV 1/2 ANTIGEN/ANTIBODY,FOURTH GENERATION W/RFL (05/24/2022 11:27 AM EDT) HIV-1/2 ANTIGEN AND ANTIBODIES, 4TH GENERATION W/ REFLEX NON-REACT ALICIA NON-REACT ALICIA [facility] Comment: HIV-1 antigen and [...] ? For additional information please refer to http://[employer].VIPAAR/faq/CXZ534 (This link is being provided for informational/ educational purposes only.) ? The performance of this assay has not been clinically validated in patients less than 2 years old. ?? 05/24/2022 11:2 7 AM EDT [facility] RESIDENTIAL FEE APPRAISER LAB BLOOD ORDERABLES Final Re sult [facility] [address] * Colonoscopy (12/28/2013) Colonoscopy performed Historical Provider MD HEALTH MAINTENANCE Final Result from Last 3 Months or Most Recently Relevant to Health Maintenance Insurance MEDICARE Member Subscriber Plan / Payer (Ef fective 2011-Present) Name:Octavio HardniNéstor rubio Member ID:[id number] Relation to Subscriber:Self Name:Octavio HardinNéstor rubio Subscriber ID:[id number] Payer ID:[id number] Group ID:Not on file Type:Medicare Address: [facility] [address] [address] [facility] [place] [address] Care Teams Rehabilitation Services Director Relationship Specialty Start Date End Date MarionMaritza moore FNP [address] [place] [address] PCP - General Family Medicine 05/24/22 Chetan A 10/21/24
--- OUTSIDE RECORDS SUMMARY | 2024-11-11 16:38 | XMS_ITS | Encounter Summary ---
Author Organization [facility] Address [address] [place] [address] Phone Care Team Providers Care Production Administrator Name Role Phone [facility] Primary Care Provider [phone] Encounter Details Date Type Department Care Team (Late Contact Info) Description 10/25/2023 Documentation Only [facility] [address] [place] [address] Diane Morrison [address] [place] [address] Social History Tobacco Use Types [...] [facility] [address] [place] [address] Mick Badillo MD [address] [place] [address] [place] [address] documented as of this encounter Visit Diagnoses Not on filedocumented in this encounter Care Teams Production Administrator Relationship Specialty Start Date End Date [facility] [address] [place], [place] [phone] PCP - General 06/26/22 documented as of this encounter
--- OUTSIDE RECORDS SUMMARY | 2024-11-11 16:38 | XMS_ITS | Encounter Summary ---
Author Organization [facility] Address [address] [place] [address] Phone Care Team Providers Care Orthopedic Shoe Maker Name Role Phone [facility] Primary Care Provider [phone] Encounter Details Date Type Department Care Team (Late Contact Info) Description 07/07/2024 Documentation Only [facility] [address] [place] [address] Diane Morrison [address] [place] [address] Social History Tobacco Use Types [...] Visit [facility] [address] [place] [address] Mick Badillo MD [address] [place] [address] [place] [address] documented as of this encounter Visit Diagnoses Not on filedocumented in this encounter Care Teams Orthopedic Shoe Maker Relationship Specialty Start Date End Date [facility] [address] [place], [place] [phone] PCP - General 06/26/22 documented as of this encounter
--- OUTSIDE RECORDS SUMMARY | 2024-11-11 16:38 | XMS_ITS | Encounter Summary ---
Author Organization [facility] Address [address] [place] [address] Phone Care Team Providers Care Rate Engineer Name Role Phone [facility] Primary Care Provider [phone] Encounter Details Date Type Department Care Team (Late Contact Info) Description 09/02/2023 Orders Only [facility] [address] [place] [address] Hank Cho PA Chronic kidney [...] Visit [facility] [address] [place] [address] Mick Badillo MD [address] [place] [address] [place] [address] documented as of this encounter Visit Diagnoses Diagnosis Chronic kidney disease, stage 2 (mild) Essential (primary) hypertension Type 2 diabetes mellitus, not otherwise specified (HCC) documented in this encounter Care Teams Rate Engineer Relationship Specialty Start Date End Date [facility] [address] [place] [address] PCP - General 06/26/22 documented as of this encounter
--- OUTSIDE RECORDS SUMMARY | 2024-11-11 16:38 | XMS_ITS | Encounter Summary ---
Author Organization [employer] Address [address] [facility] [address] 7[address] [place] [address] Care Team Providers Care Investor Relations Specialist Name Role Phone [facility] Primary Care Provider [phone] Encounter Details Date Type Department Care Team (Late st Contact Info) Description 07/18/2023 Abstract [facility] MEDICINE 230 [place], [place] [phone] Mireya Khalil Social History Tobacco Use Types [...] Description 12/25/2024 1:00 PM EDT Office Visit [facility] 230 [place] [address] Maritza Alfonso FNP 230 [place] [address] documented as of this encounter Visit Diagnoses Not on filedocumented in this encounter Additional Health Concerns Assessment Noted Time PHQ-9 Depression Total Score: 4 04/03/20 23 10:08 AM EDT documented as of this encounter Care Teams Investor Relations Specialist Relationship Specialty Start Date End Date Maritza Alfonso FNP 230 [place] [address] PCP - General Family Medicine 05/24/22 Chetan AKERSA 10/21/24 documented as of this encounter
--- OUTSIDE RECORDS SUMMARY | 2024-11-11 16:38 | XMS_ITS | Encounter Summary ---
Author Organization [facility] Address [address] [place] [address] Phone Care Team Providers Care Certified Corporate Travel Executive Name Role Phone Kaden Maritza Primary Care Provider Encounter Details Date Type Department Care Team (Late Contact Info) Description 06/01/2022 Documentation Only [facility] [address] [place] [address] Hank Cho PA Social History Tobacco Use [...] Visit [facility] [address] [place] [address] Mick Badillo MD [address] [place] [address] [place] [phone] documented as of this encounter Visit Diagnoses Not on filedocumented in this encounter Care Teams Certified Corporate Travel Executive Relationship Specialty Start Date End Date Maritza Alfonso 230 [place] [address] PCP - General 06/26/22 documented as of this encounter
--- OUTSIDE RECORDS SUMMARY | 2024-11-11 16:38 | XMS_ITS | Encounter Summary ---
Author Organization [facility] Address [address] [place] [address] Phone Care Team Providers Care Label Stamper Name Role Phone Kaden Maritza Primary Care Provider [phone] Encounter Details Date Type Department Care Team (Late Contact Info) Description 02/25/2023 Documentation Only [facility] [address] [place] [phone] Hank Cho PA Social History Tobacco Use [...] [facility] [address] [place] [address] Mick Badillo MD [address] [place] [address] [place] [phone] documented as of this encounter Visit Diagnoses Not on filedocumented in this encounter Care Teams Label Stamper Relationship Specialty Start Date End Date Maritza Alfonso 230 [place] [address] PCP - General 06/26/22 documented as of this encounter
--- OUTSIDE RECORDS SUMMARY | 2024-11-11 16:38 | XMS_ITS | Encounter Summary ---
Author Organization [employer] Address [address] [facility] [address] 7[address] [place] [address] Care Team Providers Care 911 Emergency Dispatcher Name Role Phone [facility] Primary Care Provider [phone] Encounter Details Date Type Department Care Team [...] 12/25/2024 1:00 PM EDT Office Visit [facility] MEDICINE 230 [place] [address] Maritza Alfonso FNP 230 [place] [address] documented as of this encounter Visit Diagnoses Not on filedocumented in this encounter Additional Health Concerns Assessment Noted Time PHQ-9 Depression Total Score: 0 01/15/20 24 9:49 AM EDT documented as of this encounter Care Teams 911 Emergency Dispatcher Relationship Specialty Start Date End Date Maritza Alfonso FNP [address] [place] [address] PCP - General Family Medicine 05/24/22 [facility] documented as of this encounter
--- OUTSIDE RECORDS SUMMARY | 2024-11-11 16:38 | XMS_ITS | Encounter Summary ---
Author Organization [employer] Address [address] [facility] 7t [place] [address] Care Team Providers Care Taffy Puller Name Role Phone [facility] Primary Care Provider [phone] Reason for Visit * Reason Comments Pre-visit Planning SDOH screening negat araceli and tobacco screening negative Encounter Details Date Type Department Care Team ([facility] st Contact Info) Description 10/12/2024 Patient Outreach [facility] MED[facility]INE 230 [place] [address] [facility] 230 [place] [address] Pre-visit Planning (SDOH screening negative and tobacco [...] the past 12 months, has t he [employer], gas, oil or water [employer] threatened to shut off services in your [...] Description 12/25/2024 1:00 PM EDT Office Visit [facility] [address] [place] [address] [facility] [address] [place] [address] documented as of this encounter Visit Diagnoses Not on filedocumented in this encounter Additional Health Concerns Assessment Noted Time PHQ-9 Depression Total Score: 0 01/15/20 24 9:49 AM EDT documented as of this encounter Care Teams Taffy Puller Relationship Specialty Start Date End Date Maritza Alfonso FNP [address] [place] [address] PCP - General Family Medicine 05/24/22 documented as of this encounter
--- OUTSIDE RECORDS SUMMARY | 2024-11-11 16:38 | XMS_ITS | Encounter Summary ---
Author Organization [facility] Address [address] [place] [address] Phone Care Team Providers Care Community Board Member Name Role Phone Kaden Maritza Primary Care Provider [phone] Encounter Details Date Type Department Care Team (Late Contact Info) Description 05/31/2022 Documentation Only [facility] [address] [place] [address] Hank Cho PA Social History Tobacco Use [...] [facility] [address] [place] [address] Mick Badillo MD [address] [place] [address] [place] [phone] documented as of this encounter Visit Diagnoses Not on filedocumented in this encounter Care Teams Community Board Member Relationship Specialty Start Date End Date Maritza Alfonso 230 [place] [address] PCP - General 06/26/22 documented as of this encounter
--- OUTSIDE RECORDS SUMMARY | 2024-11-11 16:38 | XMS_ITS | Encounter Summary ---
Author Organization [facility] Address [address] [place] [address] Phone Care Team Providers Care Rn Orthopaedic Name Role Phone Kaden Maritza Primary Care Provider [phone] Encounter Details Date Type Department Care Team (Late Contact Info) Description 02/22/2023 Documentation Only [facility] [address] [place] [phone] Hank Cho PA Social History Tobacco Use [...] Visit [facility] [address] [place] [address] Mick Badillo MD [address] [place] [address] [place] [phone] documented as of this encounter Visit Diagnoses Not on filedocumented in this encounter Care Teams Rn Orthopaedic Relationship Specialty Start Date End Date Maritza Alfonso 230 [place] [address] PCP - General 06/26/22 documented as of this encounter
--- OUTSIDE RECORDS SUMMARY | 2024-11-11 16:38 | XMS_ITS | Encounter Summary ---
Author Organization [employer] Address [address] [facility] [address] 7[address] [place] [address] Care Team Providers Care Manager Trust Name Role Phone [facility] Primary Care Provider [phone] Encounter Details Date Type Department Care Team ([facility] st Contact Info) Description 07/29/2023 Orders Only [facility] MEDICINE 230 [place], [place] [phone] [facility] 230 [place] [address] Neoplasm of uncertain behavior (Primary Dx) Social [...] Description 12/25/2024 1:00 PM EDT Office Visit [facility] MEDICINE 230 [place] [address] Maritza Alfonso FNP 230 [place] [address] documented as of this encounter Visit Diagnoses Diagnosis 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
--- OUTSIDE RECORDS SUMMARY | 2024-11-11 16:38 | XMS_ITS | Encounter Summary ---
Author Organization [employer] Address [address] [facility] [address] 7t [place] [address] Care Team Providers Care General Lot Attendant Name Role Phone [facility] Primary Care Provider [phone] Encounter Details Date Type Department Care Team [...] Description 12/25/2024 1:00 PM EDT Office Visit [facility] MEDICINE 230 [place], [place] [phone] [facility] 230 [place] [address] documented as of this encounter Procedures Procedure [...] Sedimentation Rate 54(H) 0 - 15 MM/HR [facility] Comment:Patients with polycy themia and many hemoglobin abnormalitiesmay have depressed sed rates whereas patients with anemiamay have elevated sed rates. 10/16/2024 6:20 PM EST 10/16/2024 6:27 PM EST Generic External Data Provider LAB BLOOD ORDERAB LES Final Result Performing Organization Address [facility] Phone Number [facility] [address] [place] [phone] Lactic Acid (10/16/2024 6:20 PM EST) Lactic Acid 1.0 0.5 - 2.0 mmol/L [facility] 10/16/2024 6:20 PM EST 10/16/2024 6:27 PM EST Generic External Data Provider LAB BLOOD ORDERAB LES Final Result Performing Organization Address [facility] Phone Number [facility] [address] [place] [phone] * Lipase (10/16/2024 6:20 PM EST) Lipase 25 8 - 78 U/L [facility] 10/16/2024 6:20 PM EST 10/16/2024 6:27 PM EST Generic External Data Provider LAB BLOOD ORDERAB LES Final Result Performing Organization Address [facility] Phone Number [facility] [address] [place] [phone] * (ABNORMAL) C-reactive Protein (10/16/2024 6:20 PM EST) C Reactive Protein 1.74(H) < or = 0.50 mg/dL [facility] 10/16/2024 6:20 PM EST 10/16/2024 6:27 PM EST us Generic External Data Provider LAB BLOOD ORDERAB LES Final Result [facility] [address] [place] [address] [phone] * (ABNORMAL) Comprehensive Metabolic Panel (10/16/2024 6:20 PM EST) Sodium 136 135 - 145 mmol/L [facility] Potassium 4.0 3.3 - 5.1 mmol/L [facility] Chloride 100 96 - 108 mmol/L [facility] Carbon Dioxide 28 22 - 29 mmol/L [facility] Anion Gap 12 12 - 20 [facility] Urea Nitrogen (BUN) 14 9 - 16 mg/dL [facility] Creatinine, Serum 1.24 0.5 - 1.4 mg/dL [facility] Creatinine Clr Calc Pharmacy 63.5 [facility] Comment:eGFR (calculated fro m the MDRD study equation) and eCrCl(calculated from the Cockcroft-Gault equation) are based ondifferent parameters and may not yield comparable results.If eCrCl result is absurd, please check patient'sheight/weight. Estimated Glomerular Filt Rate 59 [facility] Comment:Chronic Kidney Disea se: Estimated GFR < 60 mL/min/1.05h0Wcizdr Kidney Disease: Estimated GFR < 15 mL/min/1.73m2 Glucose 248(H) 60 - 115 mg/dL [facility] Calcium 10.0 8.4 - 10.2 mg/dL [facility] Bilirubin, Total 0.3 0.0 - 1.0 mg/dL [facility] Aspartate Amino Transferase 21 5 - 37 U/L [facility] Alanine Aminotransferase 16 0 - 40 U/L [facility] Total Protein 8.8(H) 6.5 - 8.0 g/dL [facility] Albumin Level 4.4 3.5 - 5.0 g/dL [facility] Alkaline Phosphatase 78 39 - 117 U/L [facility] 10/16/2024 6:20 PM EST 10/16/2024 6:27 PM EST us Generic External Data Provider LAB BLOOD ORDERAB LES Final Result [facility] [address] [place] [address] [phone] * (ABNORMAL) CBC auto differential (10/16/2024 6:20 PM EST) White Blood Count 4.7(L) 4.8 - 10.8 X10*3/uL [facility] Red Blood Count 4.68 4.60 - 5.80 X10*6/uL [facility] Hemoglobin 13.0(L) 14.0 - 18.0 g/dl [facility] Hematocrit 39.0(L) 42.0 - 52.0 % [facility] Mean Corpuscular Volume 83.3 80.0 - 98.0 fL [facility] Mean Corpuscular Hemoglobin 27.8 27.0 - 33.0 pg [facility] Mean Corpuscular HGB Conc 33.3 31.0 - 36.0 g/dl [facility] Red Cell Distribution Width 12.1 11.0 - 16.0 % [facility] Platelet Count 233 160 - 400 X10*3/uL [facility] Mean Platelet Volume 9.1(L) 9.4 - 12.4 fL [facility] Neutrophils Percent Auto 70.8 45 - 73 % [facility] Imm Gran Pct Auto 0.2 0.0 - 0.4 % [facility] Lymphocytes Percent Auto 19.7(L) 20 - 40 % [facility] Monocytes Percent Auto 7.0 2 - 11 % [facility] Eosinophils Percent Auto 2.1 0 - 4 % [facility] Basophils Percent Auto 0.2 0 - 2 % [facility] NRBC Pct Auto 0.0 0.0 - 0.2 /100WBC [facility] Neutrophils Absolute Auto 3.3 2.0 - 8.3 x10*3/uL [facility] Imm Gran Abs Auto 0.01 0.00 - 0.03 X10*3/uL [facility] Lymphocytes Absolute Auto 0.9(L) 1.2 - 4.9 X10*3/uL [facility] Monocytes Absolute Auto 0.3 0.1 - 1.2 X10*3/uL [facility] Eosinophils Absolute Auto 0.1 0.0 - 0.4 X10*3/uL [facility] Basophils Absolute Auto 0.0 0.0 - 0.2 X10*3/uL [facility] NRBC Abs Auto 0.000 0.0 - 0.012 X10*3/uL [facility] 10/16/2024 6:20 PM EST 10/16/2024 6:27 PM EST us Generic External Data Provider LAB BLOOD ORDERAB LES Final Result Performing Organization Address City/State/[facility] Co de Phone Number [facility] [address] [place] [phone] [phone] documented in this encounter Visit Diagnoses Not on filedocumented in this encounter Additional Health Concerns Assessment Noted Time PHQ-9 Depression Total Score: 0 01/15/20 24 9:49 AM EDT documented as of this encounter Care Teams General Lot Attendant Relationship Specialty Start Date End Date Maritza Alfonso FNP [address] [place] [address] PCP - General Family Medicine 05/24/22 documented as of this encounter
--- OUTSIDE RECORDS SUMMARY | 2024-11-11 16:38 | XMS_ITS | Encounter Summary ---
Author Organization [facility] Address [address] [place] [address] Phone Care Team Providers Care Retail Sales Consultant Name Role Phone Kaden Maritza Primary Care Provider Encounter Details Date Type Department Care Team (Late Contact Info) Description 06/22/2022 Documentation Only [facility] [address] [place] [phone] Hank Cho PA Social History Tobacco Use [...] Visit [facility] [address] [place] [address] Mick Badillo MD [address] [place] [address] [place] [phone] documented as of this encounter Visit Diagnoses Not on filedocumented in this encounter Care Teams Retail Sales Consultant Relationship Specialty Start Date End Date Maritza Alfonso [address] [place] [address] PCP - General 06/26/22 documented as of this encounter
--- OUTSIDE RECORDS SUMMARY | 2024-11-11 16:38 | XMS_ITS | Encounter Summary ---
Author Organization [employer] Address [address] [facility] [address] [place] [address] Care Team Providers Care Geophysical E Logger Name Role Phone [facility] Primary Care Provider [phone] Reason for Visit * Reason Comments Med Change Request Encounter Details Date Type Department Care Team ([facility] st Contact Info) Description 10/30/2024 Refill [facility]INE [address] [place], [place] [phone] [facility] 230 [place], [place] [phone] Type 2 diabetes mellitus with hyperglycemia, without long-term current use of insulin ([facility]) Social History Tobacco Use Types [...] Office Visit [facility]ICINE [address] [place] [address] [place] [facility] [address] [place] [address] documented as of this encounter Visit Diagnoses Diagnosis Type 2 diabetes mellitus with hyperglycemia, without long-term current use of insulin ([facility]) documented in this encounter Additional Health Concerns Assessment Noted Time PHQ-9 Depression Total Score: 0 01/15/20 24 9:49 AM EDT documented as of this encounter Care Teams Geophysical E Logger Relationship Specialty Start Date End Date [place] [facility] [address] [place] [address] PCP - General Family Medicine 05/24/22 [facility] documented as of this encounter
--- OUTSIDE RECORDS SUMMARY | 2024-11-11 16:38 | XMS_ITS | Encounter Summary ---
Author Organization [employer] Address [address] [facility] [address] 7[address] [place] [address] Care Team Providers Care Stone Carriage Operator Name Role Phone [facility] Primary Care Provider [phone] Encounter Details Date Type Department Care Team ([facility] st Contact Info) Description 10/16/2024 Telephone [facility] [address] [place], [place] [phone] [facility] [address] [place] [address] Social History Tobacco Use Types Packs/Day Years [...] 10/16/2024 3:56 PM EST T/C placed to [facility] ED per request of Maritza Alfonso WEB SITE MANAGER to advise that pt will present to [...] Description 12/25/2024 1:00 PM EDT Office Visit [facility] [address] [place] [address] Maritza Alfonso FNP [address] [place] [address] documented as of this encounter Visit Diagnoses Not on filedocumented in this encounter Additional Health Concerns Assessment Noted Time PHQ-9 Depression Total Score: 0 01/15/20 24 9:49 AM EDT documented as of this encounter Care Teams Stone Carriage Operator Relationship Specialty Start Date End Date Maritza Alfonso FNP [address] [place] [address] PCP - General Family Medicine 05/24/22 documented as of this encounter
--- OUTSIDE RECORDS SUMMARY | 2024-11-11 16:38 | XMS_ITS | Encounter Summary ---
Author Organization [employer] Address [address] [facility] [address] 7t [place] [address] Care Team Providers Care Business Planner Name Role Phone [facility] Primary Care Provider [phone] Reason for Visit * Reason Onset Date Comments Referral 07/03/2024 Encounter Details Date Type Department Care Team ([facility] st Contact Info) Description 07/03/2024 Telephone [facility] 230 [place], [place] [phone] [facility] 230 [place] [address] Referral Social History Tobacco Use Types Packs/Day [...] Provider name or facility name: [facility] Escort needed: Y/N: No Do you have a wheelchair: Y/N: No If yes- Manual or electric: Visits: (amount of visits) ( x monthly, weekly, daily) documented in this encounter Plan of Treatment Upcoming Encounters Date Type Department Care Team ([facility] st Contact Info) Description 12/25/2024 1:00 PM EDT Office Visit [facility] [address] [place] [address] Maritza Alfonso FNP 230 [place] [address] documented as of this encounter Visit Diagnoses Not on filedocumented in this encounter Additional Health Concerns Assessment Noted Time PHQ-9 Depression Total Score: 0 01/15/20 9:49 AM EDT documented as of this encounter Care Teams Business Planner Relationship Specialty Start Date End Date Maritza Alfonso FNP [address] [place] [address] [place] [address] PCP - General Family Medicine 05/24/22 [place] MEYERS 10/21/24 documented as of this encounter
--- OUTSIDE RECORDS SUMMARY | 2024-11-11 16:38 | XMS_ITS | Encounter Summary ---
Author Organization [facility] Address [address] [place] [address] Phone Care Team Providers Care Etl Consultant Name Role Phone [facility] Primary Care Provider Encounter Details Date Type Department Care Team (Late Contact Info) Description 06/29/2024 Orders Only [facility] [address] [place] [address] Hank Cho PA Chronic kidney [...] [facility] [address] [place] [address] Mick Badillo MD [address] [place] [address] [place] [address] documented as of this encounter Visit Diagnoses Diagnosis Chronic kidney disease, stage 2 (mild) Type 2 diabetes mellitus, not otherwise specified (HCC) Essential (primary) hypertension Microalbuminuria documented in this encounter Care Teams Etl Consultant Relationship Specialty Start Date End Date [facility] [address] [place] [address] PCP - General 06/26/22 documented as of this encounter
--- OUTSIDE RECORDS SUMMARY | 2024-11-11 16:38 | XMS_ITS | Encounter Summary ---
Author Organization [employer] Address [address] [facility] 7t [place] [address] Care Team Providers Care Fish Dressing Machine Feeder Name Role Phone [facility] Primary Care Provider [phone] Reason for Visit * Reason Onset Date Comments Prior Authorization 10/30/2024 Plan of care 10/30/2024 Encounter Details Date Type Department Care Team ([facility] st Contact Info) Description 10/30/2024 Telephone [facility] 230 [place] [address] [facility] 230 [place] [address] Prior Authorization; Plan of care Social History [...] the past 12 months, has t he RELEASEIF, gas, oil or water [employer] threatened to shut off services in your [...] as per below. Using BIS ID # [id number], all directions reviewedwith pt. Pt confirmed understanding to not take doxcycline until 11/14/24 the day after the daptomcyin is scheduled to stop per [facility] DC note from 10/20/24. He confirms he is going to the wound clinicon 11/10/24, and has an OV with ID at [facility] on 11/11/24. He is aware there is a pending referral to as well. He denies any questions or concerns at this time and confirms he has [facility] contact info if needed. [facility], [facility] Red Team Nurses Please advise patient that [...] Bryant in infectious disease. Thank you! FROM [facility] instructions 10/20/24: Discharge Anticipated Discharge Date/Time: 10/20/24 14:01 Patient Disposition: Home Health Service Discharge Diagnosis: Osteomyelitis Referrals: [facility] [Other] - 1 Week [facility] [Outside] - 1 Week [place] FNP [Primary Care Provider] - 1 Week Discharge Medications: New daptomycin 500 mg recon soln 437 mg IV Q24H Rx Instructions: IV push 10/16/24 22:07 Consult to Infectious Diseases Routine Consulting Provider: [facility] Reason for consultation: left [...] follow up out patient Wound Clinic at [address] [place] [address] and to call for an appointment at time of discharge. [phone].? Care Plan Goals: >>Daptomycin via PICC line [...] Description 12/25/2024 1:00 PM EDT Office Visit [facility] 230 [place] [address] Maritza Alfonso FNP 230 [place] [address] documented as of this encounter Visit Diagnoses Not on filedocumented in this encounter Additional Health Concerns Assessment Noted Time PHQ-9 Depression Total Score: 0 01/15/20 24 9:49 AM EDT documented as of this encounter Care Teams Fish Dressing Machine Feeder Relationship Specialty Start Date End Date Maritza Alfonso FNP [address] [place] [address] PCP - General Family Medicine 05/24/22 [place] [facility] 10/21/24 documented as of this encounter
--- OUTSIDE RECORDS SUMMARY | 2024-11-11 16:38 | XMS_ITS | Encounter Summary ---
Author Organization [employer] Address [address] [facility] [address] 7t [place] [address] Care Team Providers Care Floor Helper Name Role Phone [facility] Primary Care Provider [phone] Reason for Visit * Reason Onset Date Comments Med Refill 10/30/2024 Encounter Details Date Type Department Care Team (Late st Contact Info) Description 10/30/2024 Refill [facility] 230 [place], [place] [phone] [facility] 230 [place] [address] Type 2 diabetes mellitus with hyperglycemia, without long-term current use of insulin ([facility]); Type 2 diabetes mellitus with hyperglycemia, with long-term current use of insulin ([facility]) Social History Tobacco Use Types [...] has signed and RN has faxed to [phone] confirmation page received. documented in this encounter Plan of Treatment Upcoming Encounters Date Type Department Care Team (Late st Contact Info) Description 12/25/2024 1:00 PM EDT Office Visit [facility] 230 [place] [address] [place] MaritzaITZELP 230 [place], [place] [phone] documented as of this encounter Visit Diagnoses Diagnosis Type 2 diabetes mellitus with hyperglycemia, without long-term current use of insulin ([facility]) Type 2 diabetes mellitus with hyperglycemia, with long-term current use of insulin ([facility]) documented in this encounter Additional Health Concerns Assessment Noted Time PHQ-9 Depression Total Score: 0 01/15/20 24 9:49 AM EDT documented as of this encounter Care Teams Floor Helper Relationship Specialty Start Date End Date KadenMaritza moore FNP [address] [place] [address] PCP - General Family Medicine 05/24/22 [place] MEYERS 10/21/24 documented as of this encounter
--- OUTSIDE RECORDS SUMMARY | 2024-11-11 16:38 | XMS_ITS | Encounter Summary ---
Author Organization [facility] Address [address] [place] [address] Phone Care Team Providers Care Oracle Manager Name Role Phone [facility] Primary Care Provider [phone] Encounter Details Date Type Department Care Team (Late Contact Info) Description 10/25/2023 Documentation Only [facility] [address] [place] [address] Diane Morrison [address] [place] [address] Social History Tobacco Use Types [...] Visit [facility] [address] [place] [address] Mick Badillo MD [address] [place] [address] [place] [address] documented as of this encounter Visit Diagnoses Not on filedocumented in this encounter Care Teams Oracle Manager Relationship Specialty Start Date End Date [facility] 230 [place], [place] [phone] PCP - General 06/26/22 documented as of this encounter
--- OUTSIDE RECORDS SUMMARY | 2024-11-11 16:38 | XMS_ITS | Encounter Summary ---
Author Organization [facility] Address [address] [place] [address] Phone Care Team Providers Care Police Investigator Name Role Phone Kaden Maritza Primary Care Provider [phone] Encounter Details Date Type Department Care Team (Late Contact Info) Description 05/28/2022 Documentation Only [facility] [address] [place] [phone] Hank Cho PA Social History Tobacco Use [...] [facility] [address] [place] [address] Mick Badillo MD [address] [place] [address] [place] [phone] documented as of this encounter Visit Diagnoses Not on filedocumented in this encounter Care Teams Police Investigator Relationship Specialty Start Date End Date Maritza Alfonso 230 [place] [address] PCP - General 06/26/22 documented as of this encounter
--- OUTSIDE RECORDS SUMMARY | 2024-11-11 16:39 | XMS_ITS | Encounter Summary ---
Author Organization [employer] Address 75 [facility] 7t [place] [address] Care Team Providers Care Yeast Supervisor Name Role Phone Maritza Alfonso [facility] Primary Care Provider Reason for Referral * Consultation (Routine) - Closed Specialty Diagnoses / Procedures Referred By Guanakito caro Referred To Contact Wound Care Diagnoses Wound of left foot Maritza Alfonso [facility] [address] [place] [address] Phone: tel: fax: [facility] [address] [place] [address] Phone: tel: fax: Referral ID Status Reason Start Date Expiration Date V isits Requested Visits Authorized [id number] Closed Specialty Services Required 10/07/2024 10/07/2025 1 1 * Imaging (STAT) - Canceled Specialty Diagnoses / Procedures Referred By Guanakito caro Referred To Contact Radiology Diagnoses Wound of left foot Procedures Mr Foot w/o Contrast Left Maritza Alfonso [facility] [address] [place] [address] Phone: tel: fax: [facility] [address] [place], [place] Phone: tel: fax: Referral ID Status Reason Start Date Expiration Date V isits Requested Visits Authorized [id number] Canceled 10/07/2024 10/07/2025 1 1 Reason for Visit * Reason Comments follow up foot ulcer Encounter Details Date Type Department Care Team (Late st Contact Info) Description 10/07/2024 11:00 AM EST Office Visit [facility] 230 [place] [address] Maritza Alfonso FNP [address] [place] [address] Type 2 diabetes mellitus with hyperglycemia, without long-term current use of insulin ([facility]) (Primary Dx); Wound of left foot [...] documented in this encounter Progress Notes * [facility], [facility] - 10/07/2024 11:00 AM EST SUBJECTIVE: [...] this time. He was previously followed by [facility] wound care and podiatry but was lost to follow up since -04/2024. At walk [place] He was prescribed 2 weeks of Augmentin and referred back to podiatry. X-ray at this time with concern for possible occult osteomyelitis. Today patient denies fever or chills discharge or increased swelling he has an appointment with podiatry scheduled for October. Social History Social History Narrative Current living environment: Has RIB BENDER. Lives alone Children: 2 Activities: Enjoys walking, [...] hyperglycemia, without long-term current use of insulin ([facility]) (Primary) Lab Results Component Value Date [...] facility-administered medications on file prior to visit. Hebrew Translation: Provided by [facility] staff member KATTY Sahu documented in this encounter Plan of Treatment Upcoming Encounters Date Type Department Care Team (Late st Contact Info) Description 12/25/2024 1:00 PM EDT Office Visit [facility] [address] [place] [address] Maritza Alfonso FNP [address] [place] [address] Scheduled Orders Name Type Priority Associated Diagnoses [...] hyperglycemia, without long-term current use of insulin ([facility]) CBC WITH AUTO DIFFERENTIAL Routine 10/08/2024 9:55 AM EST Wound of left foot SED RATE BY MODIFIED WESTERGREN Routine 10/08/2024 9:55 AM EST Wound of left foot C-REACTIVE PROTEIN Routine 10/08/2024 9: 55 AM EST Wound of left foot LIPID PANEL, STANDARD Routine 10/08/2024 9:55 AM EST Type 2 diabetes mellitus with hyperglycemia, without long-term current use of insulin ([facility]) COMPREHENSIVE METABOLIC PANEL Routine 10/08/2024 9:55 AM EST Type 2 diabetes mellitus with hyperglycemia, without long-term current use of insulin ([facility]) POCT GLYCATED HEMOGLOBIN, TOTAL Routine 10/07/2024 11:04 AM EST Type 2 diabetes mellitus with hyperglycemia, without long-term current use of insulin ([facility]) POCT GLUCOSE Routine 10/07/2024 11:04 AM EST Type 2 diabetes mellitus with hyperglycemia, without long-term current use of insulin ([facility]) documented in this encounter Results * (ABNORMAL) C-reactive Protein (10/08/2024 9:55 AM EST) C Reactive Protein 2.03(H) < or = 0.50 mg/dL [facility] Blood Venous blood specimen / Unknown 10/08/2024 9:55 AM EST 10/08/2024 9:55 AM EST [facility] LAB BLOOD ORDERABLES Final Re sult [facility] [address] [place] [phone] [phone] * (ABNORMAL) Sed Rate by Modified Westergren (10/08/2024 9:55 AM EST) [facility] Erythrocyte Sedimentation Rate 38(H) 0 - 15 MM/HR [facility] Comment:Patients with polycy themia and many hemoglobin abnormalitiesmay have depressed sed rates whereas patients with anemiamay have elevated sed rates. Blood Venous blood specimen / Unknown 10/08/2024 9:55 AM EST 10/08/2024 9:55 AM EST [facility] LAB BLOOD ORDERABLES Final Re sult [facility] [address] [place] [address] [phone] * (ABNORMAL) CBC auto differential (10/08/2024 9:55 AM EST) [facility] White Blood Count 3.6(L) 4.8 - 10.8 X10*3/uL [facility] Red Blood Count 4.71 4.60 - 5.80 X10*6/uL [facility] Hemoglobin 13.1(L) 14.0 - 18.0 g/dl [facility] Hematocrit 40.7(L) 42.0 - 52.0 % [facility] Mean Corpuscular Volume 86.4 80.0 - 98.0 fL [facility] Mean Corpuscular Hemoglobin 27.8 27.0 - 33.0 pg [facility] Mean Corpuscular HGB Conc 32.2 31.0 - 36.0 g/dl [facility] Red Cell Distribution Width 12.4 11.0 - 16.0 % [facility] Platelet Count 210 160 - 400 X10*3/uL [facility] Mean Platelet Volume 9.1(L) 9.4 - 12.4 fL [facility] Neutrophils Percent Auto 65.7 45 - 73 % [facility] Imm Gran Pct Auto 0.3 0.0 - 0.4 % [facility] Lymphocytes Percent Auto 19.9(L) 20 - 40 % [facility] Monocytes Percent Auto 11.6(H) 2 - 11 % [facility] Eosinophils Percent Auto 2.2 0 - 4 % [facility] Basophils Percent Auto 0.3 0 - 2 % [facility] NRBC Pct Auto 0.0 0.0 - 0.2 /100WBC [facility] Neutrophils Absolute Auto 2.4 2.0 - 8.3 x10*3/uL [facility] Imm Gran Abs Auto 0.01 0.00 - 0.03 X10*3/uL [facility] Lymphocytes Absolute Auto 0.7(L) 1.2 - 4.9 X10*3/uL [facility] Monocytes Absolute Auto 0.4 0.1 - 1.2 X10*3/uL [facility] Eosinophils Absolute Auto 0.1 0.0 - 0.4 X10*3/uL [facility] Basophils Absolute Auto 0.0 0.0 - 0.2 X10*3/uL [facility] NRBC Abs Auto 0.000 0.0 - 0.012 X10*3/uL [facility] Blood Venous blood specimen / Unknown 10/08/2024 9:55 AM EST 10/08/2024 9:55 AM EST [facility] [employer] LAB BLOOD ORDERABLES Final Re sult [facility] [address] [place] [phone] * Lipid Panel, Standard (10/08/2024 9:55 AM EST) Triglycerides 51 <150 mg/dL [facility] Comment:Desirable Triglyceri de: less than 150 mg/dLBorderline High Triglyceride 150-199 mg/dLHigh Triglyceride: 200-499 mg/dLVery High Triglyceride: greater than or equal to 5OO mg/dL Cholesterol 153 <200 mg/dL [facility] Comment:Desirable Cholestero l: less than 200 mg/dLBorderline High Cholesterol: 200-239 mg/dLHigh Cholesterol: greater than 239 mg/dL LDL Cholesterol Calculated 91 <100 mg/dL [facility] Comment:Desirable LDL: less than 100 mg/dLNear Optimal/Above Optimal LDL: 110- 129 mg/dLBorderline High LDL: 130-159 mg/dLHigh LDL: 160-189 mg/dLVery High LDL: greater than or equal to 190 mg/dL HDL Cholesterol 52 >40 mg/dL [facility] Comment:Desirable HDL: great er than 40 mg/dL Note: This HDL assay may give artificially low results in patients with liver disease. Blood Venous blood specimen / Unknown 10/08/2024 9:55 AM EST 10/08/2024 9:55 AM EST [facility] [employer] LAB BLOOD ORDERABLES Final Re sult [facility] [address] [place] [phone] * (ABNORMAL) Comprehensive Metabolic Panel (10/08/2024 9:55 AM EST) Sodium 136 135 - 145 mmol/L [facility] Potassium 4.2 3.3 - 5.1 mmol/L [facility] Chloride 101 96 - 108 mmol/L [facility] Carbon Dioxide 26 22 - 29 mmol/L [facility] Anion Gap 13 12 - 20 [facility] Urea Nitrogen (BUN) 11 9 - 16 mg/dL [facility] Creatinine, Serum 0.92 0.5 - 1.4 mg/dL [facility] Estimated Glomerular Filt Rate >60 [facility] Comment:Chronic Kidney Disea se: Estimated GFR < 60 mL/min/1.79r4Sdpnmm Kidney Disease: Estimated GFR < 15 mL/min/1.73m2 Glucose 167(H) 60 - 115 mg/dL [facility] Calcium 10.1 8.4 - 10.2 mg/dL [facility] Bilirubin, Total 0.5 0.0 - 1.0 mg/dL [facility] Aspartate Amino Transferase 25 5 - 37 U/L [facility] Alanine Aminotransferase 20 0 - 40 U/L [facility] Total Protein 8.8(H) 6.5 - 8.0 g/dL [facility] Albumin Level 4.5 3.5 - 5.0 g/dL [facility] Alkaline Phosphatase 72 39 - 117 U/L [facility] Blood Venous blood specimen / Unknown 10/08/2024 9:55 AM EST 10/08/2024 9:55 AM EST [facility] LAB BLOOD ORDERABLES Final Re sult Performing Organization Address [facility] Co de Phone Number [facility] [address] [place] [phone] * Albumin, Random Urine W/Creatinine (10/08/2024 9:55 AM EST) Creatinine, Urine 98.17 mg/dL [facility] Microalbumin Urine 20.0 mg/L [facility] Microalbum Creatinine Ratio Ur 20.3 <30 ug/mg cr [facility] Comment:Albumin/Creatinine R atio Reference Ranges: Normal: < 30 ug/mg creatinine Microalbuminuria: 30 - 300 ug/mg creatinineClinical Albuminuria: > 300 ug/mg creatinine Urine 10/08/2024 9:55 AM EST 10/08/2024 10:32 AM EST [facility] URINE ORDERABLES Final Re sult Performing Organization Address [facility] Co de Phone Number [facility] [address] [place] [phone] * (ABNORMAL) POCT HGB A1C (10/07/2024 11:04 AM EST) Hemoglobin A1C 8.5(A) 4.0 - 6.0 % Blood 10/07/2024 11:0 4 AM EST Result [facility] POINT OF CARE TEST ENTER/EDIT ORDERABLES Final Result * POCT Glucose (10/07/2024 11:04 AM EST) Glucose Blood, POC 200 60 - 200 mg/dL Blood Capillary blood specimen / Unknown 10/07/2024 11:04 AM EST Result [facility] POINT OF CARE TEST ENTER/EDIT ORDERABLES Final Result documented in this encounter Visit Diagnoses Diagnosis Type 2 diabetes mellitus with hyperglycemia, without long-term current use of insulin ([facility])- Primary Wound of left foot documented in this encounter Additional Health Concerns Assessment Noted Time PHQ-9 Depression Total Score: 0 01/15/20 24 9:49 AM EDT documented as of this encounter Care Teams Yeast Supervisor Relationship Specialty Start Date End Date [place] [facility] [address] [place] [phone] PCP - General Family Medicine 05/24/22 documented as of this encounter
--- OUTSIDE RECORDS SUMMARY | 2024-11-11 16:39 | XMS_ITS | Clinical Summary ---
Author Organization [facility], Address [address] [place] [address] [place] [address] Phone Care Team Providers Care System Development Manager Name Role Phone [facility] Primary Care Provider [phone] Allergies Active Allergy Reactions Criticality Noted Date [...] Visit [facility], [address] [place] [address] Mick Badillo MD [address] [place] [id number] Health Maintenance Due Date Last Done Comments [...] Name Priority Date/Time Associated Diagnosis Comments LAB PATTERN RULER Routine 01/29/2018 12:00 AM EDT from Last 3 Months or Most Recently Relevant to Health Maintenance Results * Lab Fixing Carpenter (01/29/2018 12:00 AM EDT) Hemoglobin A1C 7.8 % [facility] 01/29/2018 us [facility] [id number] LICITED RESULTS Final Result [facility] from Last 3 Months or Most Recently Relevant to Health Maintenance Insurance [place] Care Teams System Development Manager Relationship Specialty Start Date End Date [facility] [address] [place] [address] PCP - General 06/26/22
--- OUTSIDE RECORDS SUMMARY | 2024-11-11 16:39 | XMS_ITS | Encounter Summary ---
Author Organization [employer] Address [address] [place] [address] Care Team Providers Care Intelligence Agent Name Role Phone [facility] Primary Care Provider [phone] Reason for Visit * Reason Onset Date Comments Results 10/02/2024 Encounter Details Date Type Department Care Team ([facility] st Contact Info) Description 10/02/2024 Telephone [facility] [address] [place], [place] [phone] Rosa Solano RN [address] [place] [address] Results Social History Tobacco Use Types Packs/Day [...] Description 12/25/2024 1:00 PM EDT Office Visit [facility] [address] [place] [id number] KadenMaritza moore FNP [address] [place] [address] documented as of this encounter Visit Diagnoses Not on filedocumented in this encounter Additional Health Concerns Assessment Noted Time PHQ-9 Depression Total Score: 0 01/15/20 24 9:49 AM EDT documented as of this encounter Care Teams Intelligence Agent Relationship Specialty Start Date End Date Maritza Alfonso FNP [address] [place] [address] PCP - General Family Medicine 05/24/22 Chetan MEYERS 10/21/24 documented as of this encounter
== END 2024-11-11 15:14 | disposition home or self-care (01) ==
LOC: HO.HID 14:04
PROVIDERS: PCP Registered Nurse; Visit Provider Internal Medicine
DX: M86.9 Osteomyelitis, unspecified (principal)
CPT/HCPCS: 99213

== ENCOUNTER → 2024-11-11 14:04 | Outpatient (BNVA) | payer MEDICARE, MEDICAID, SELFPAY | PROVIDERS: PCP Registered Nurse; Visit Provider Internal Medicine | DX: M86.9 Osteomyelitis, unspecified (principal) | CPT/HCPCS: 99212 ==

== ENCOUNTER 2024-11-12 11:30 | Outpatient (RCR) | payer MEDICARE, MEDICAID, SELFPAY | END 2024-11-13 10:45 | disposition home or self-care (01) | LOC: HO.WCC 11:30 | PROVIDERS: PCP Registered Nurse; Visit Provider Surgery | DX: E11.621 Type 2 diabetes mellitus with foot ulcer (principal); L97.522 Non-pressure chronic ulcer of other part of left foot with fat layer exposed; E11.69 Type 2 diabetes mellitus with other specified complication; M86.072 Acute hematogenous osteomyelitis, left ankle and foot; Z79.2 Long term (current) use of antibiotics; Z79.85 Long-term (current) use of injectable non-insulin antidiabetic drugs; Z79.84 Long term (current) use of oral hypoglycemic drugs; Z79.82 Long term (current) use of aspirin; Z79.899 Other long term (current) drug therapy | CPT/HCPCS: 11042; 99212; 99213 ==

== ENCOUNTER 2025-01-05 08:46 | Outpatient (REF) | payer MEDICARE, MEDICAID, SELFPAY ==
--- NOTE | ~2025-01-05 | US_ITS ---
EXAMINATION: US ABDOMEN COMPLETE CLINICAL INFORMATION: Right upper quadrant pain.. COMPARISON: None available. TECHNIQUE: Real-time ultrasound of the abdomen using grayscale and color Doppler technique. FINDINGS: PANCREAS: No peripancreatic fluid collections. ABDOMINAL AORTA: Unable to completely visualized. INFERIOR VENA CAVA: No fully evaluated. LIVER: Liver measures 14 cm. Coarse echotexture. Subtle nodular surface. No solid or cystic lesion detected by the technologist. No intrahepatic biliary ductal dilatation. GALLBLADDER: Fluid-filled. No pericholecystic fluid collection or gallbladder wall thickening. COMMON BILE DUCT: 6 mm. RIGHT KIDNEY: 10 cm. Normal echotexture. Normal renal cortical thickness. No hydronephrosis. No solid or cystic lesion. Normal flow on color Doppler interrogation of the renal hilum. LEFT KIDNEY: 11 cm. Normal echotexture. Normal renal cortical thickness. No hydronephrosis. No solid or cystic lesion. Normal flow on color Doppler interrogation.. SPLEEN: 10 cm. No focal lesion. 1.6 cm accessory spleen.. FREE FLUID: None. US/US abdomen complete IMPRESSION: No cholelithiasis. No hydronephrosis. No ascites. Electronically signed by: Maurice Wilburn MD 01/05/2025 09:51 AM EDT
--- OUTSIDE RECORDS SUMMARY | 2025-01-05 09:17 | XMS_ITS | Encounter Summary ---
Author Organization [employer] Address [address] [place] [address] Care Team Providers Care Machine Tender Name Role Phone [place] Primary Care Provider [phone] Encounter Details Date Type Department Care Team ([facility] st Contact Info) Description 07/18/2023 Abstract [facility] [address] [place], [place] [phone] Mireya Khalil Social History Tobacco Use Types [...] as of this encounter Plan of Treatment Not on file documented as of this encounter Visit Diagnoses Not on filedocumented in this encounter Additional Health Concerns Assessment Noted Time PHQ-9 Depression Total Score: 4 04/03/20 23 10:08 AM EDT documented as of this encounter Care Teams Machine Tender Relationship Specialty Start Date End Date Maritza Alfonso FNP [address] [place] [address] [place] [address] PCP - General Family Medicine 05/24/22 Chetan MEYERS 10/21/24 documented as of this encounter
--- OUTSIDE RECORDS SUMMARY | 2025-01-05 09:17 | XMS_ITS | Encounter Summary ---
Author Organization [facility] Address [address] [place] [address] Phone Care Team Providers Care Site Director Name Role Phone Kaden Maritza Primary Care Provider [phone] Encounter Details Date Type Department Care Team (Late Contact Info) Description 02/22/2023 Documentation Only [facility] [address] [place] [phone] Hank Cho PA Social History Tobacco Use [...] [facility] [address] [place] [address] Mick Badillo MD [address] [place] [address] [place] [phone] documented as of this encounter Visit Diagnoses Not on filedocumented in this encounter Care Teams Site Director Relationship Specialty Start Date End Date Maritza Alfonso [address] [place] [address] PCP - General 06/26/22 documented as of this encounter
--- OUTSIDE RECORDS SUMMARY | 2025-01-05 09:17 | XMS_ITS | Clinical Summary ---
Author Organization [employer] Address [address] [facility] [facility] [address] [place] [address] Care Team Providers Care Makeup Editor Name Role Phone [facility] Primary Care Provider [phone] Allergies Active Allergy Reactions Criticality Noted Date Comments Penicillins 12/24/2024 Piperacillin-Tazobactam In Dex Unknown 05/15 Vancomycin Itching [...] Glucose Monitoring Suppl (True Metrix Meter) w/Device kitIndications:T ype 2 diabetes mellitus with hyperglycemia, with long-term current use of insulin ([facility]) 1 kit before breakfast, before lunch, before evening meal, and at bedtime. 1 kit 09/20/19 23 Active TRUEplus Lancets 33G miscIndications: Type 2 diabetes mellitus with hyperglycemia, with long-term current use of insulin ([facility]) TEST BLOOD SUGAR 4 TIMES A DAY 100 each 11 04/09/20 23 Active metFORMIN XR (Glucophage-XR) 500 MG 24 hr tabletIndication s:Type 2 diabetes mellitus with hypoglycemia without coma, without long-term current use of insulin ([facility]) Take 1 tablet (500 mg) by mouth 2 times daily. 360 tablet 1 05/20/20 24 Active metoprolol succinate XL (Toprol-XL) 50 MG 24 hr tablet TAKE 1 TABLET BY MOUTH EVERY MORNING 90 tablet 1 /28/20 25 Active Aspirin Low Dose 81 MG EC tablet TAKE 1 TABLET BY MOUTH EVERY MORNING 90 tablet 09/29/19 25 Active D3 Super Strength 50 MCG (1999 UT) capsule TAKE 1 CAPSULE BY MOUTH EVERY MORNING 90 capsule 09/29/19 25 Active empagliflozin (Jardiance) 25 MGIndications:Ty pe 2 diabetes mellitus with hyperglycemia, without long-term current use of insulin ([facility]) Take 1 tablet (25 mg) by mouth Once per day. 30 tablet 10/07/19 25 026 Active Alcohol Swabs (Alcohol Prep) padsIndications: Type 2 diabetes mellitus with hyperglycemia, without long-term current use of insulin ([facility]) Use one pad each to prep skin prior to injection as directed 100 each 10/26/19 25 Active ondansetron (Zofran) 4 MG tabletIndication s:Nausea Take 1 tablet (4 mg) by mouth every 8 (eight) hours if needed for nausea or vomiting. 30 tablet 10/26/19 25 Active Lancets 33G miscIndications: Type 2 diabetes mellitus with hyperglycemia, without long-term current use of insulin ([facility]) Use as directed to check blood sugar once daily 100 each 3 10/30/19 25 Active glucose blood (FREESTYLE LITE) test stripIndications :Type 2 diabetes mellitus with hyperglycemia, with long-term current use of insulin ([facility]) TEST BLOOD SUGAR ONCE DAILY 100 strip 10/30/19 25 Active Glucose Blood (Blood Glucose Test) stripIndications :Type 2 diabetes mellitus with hyperglycemia, without long-term current use of insulin ([facility]) USE TO TEST BLOOD SUGAR ONCE A DAY 50 strip 11/03/19 25 Active Blood Glucose Monitoring Suppl (GNP Easy Touch Glucose Meter) deviceIndication s:Type 2 diabetes mellitus with hyperglycemia, without long-term current use of insulin ([facility]) USE TO TEST BLOOD SUGAR ONCE A DAY 1 each 11/03/19 25 Active chlorhexidine (Peridex) 0.12 % solution Swish 15 mL morning and night for 1 minute. Spit, do not swallow. Do not eat or drink for 30 minutes following use. 473 mL 12/25/19 25 Active Dulaglutide (Trulicity) 4.5 MG/0.5ML solution auto-injectorInd ications:Type 2 diabetes mellitus with hyperglycemia, without long-term current use of insulin ([facility]) Inject 4.5 mg under the skin 1 (one) time per week. 2 mL 3 12/26/19 25 Active Dulaglutide (Trulicity) 3 MG/0.5ML solution auto-injectorInd ications:Type 2 diabetes mellitus with hyperglycemia, without long-term current use of insulin (CMS/HCC) Inject 3 mg under the skin 1 (one) time per week. 2 mL 11 10/26/19 25 025 Discontinued Active Problems Problem Noted Date Diagnosed Date Pain, dental 12/24/2024 Localized swelling of left foot 08/13/2024 Assessment [...] Declines PSA: 04/2023 [place] Exam: [place] [facility] [place] [...] arteriosclerosis 08/13/2022 Overview (04/03/2023): ?? [place] [facility] [place] ?? 01/2023 Negative Echo. Negative stress test Leukopenia 03/26/2022 Overview (04/03/2023): ?? Followed [place]ology[place] [facility] [place] Last [...] toe amputation Eye Exam: [place] [facility] [place] [...] previously ordered labs. Will re order [place] [facility] [place] [...] Encounters Date Type Department Care Team Description 12/25/2024 1:00 PM EDT Office Visit [facility] [address] [place] [address] [facility] Type 2 diabetes mellitus with hyperglycemia, without long-term current use of insulin ([facility]) (Primary Dx); Right upper quadrant abdominal pain 12/25/2024 Travel 12/24/2024 11:30 AM EDT Office Visit [facility] [address] [place] [address] Cas Burdick DDS Pain, dental (Primary Dx) 12/23/[address] [address] Maritza Alfonso FNP Chart Prep 11/09/2024 Orders Only [facility] [address] [place], [place] [phone] Shayna Bryant MD 10/30/[address] [address] Maritza Alfonso FNP Type 2 diabetes mellitus with hyperglycemia, without long-term current use of insulin ([facility]) 10/30/[address] [address] Maritza Alfonso FNP Type 2 diabetes mellitus with hyperglycemia, without long-term current use of insulin ([facility]); Type 2 diabetes mellitus with hyperglycemia, with long-term current use of insulin (CMS/HCC) 10/30/[address] [address] Maritza Alfonso FNP Prior Authorization; Plan of care 10/26/2024 9:45 AM EST Office Visit [address] [address] Maritza Alfonso FNP Type 2 diabetes mellitus with hyperglycemia, without long-term current use of insulin ([facility]) (Primary Dx); Nausea; Osteomyelitis of left foot, unspecified type (CMS/HCC) 10/26/2024 Travel 10/16/2024 Orders Only GENERIC EXTERNAL DATA DEPARTMENT Provider, Generic External Data 10/16/[address] [address] Maritza Alfonso FNP 10/12/2024 Patient Outreach [address] [phone] Maritza Alfonso FNP Pre-visit Planning (SDOH screening negative and tobacco screening negative) 10/08/2024 Orders Only [facility] [address] [place] [phone] Kaden, Maritza, [employer]ILER Wound of left foot (Primary Dx) from Last 3 Months Immunizations Name Administration [...] Date Recorded Patient Health Questionnaire-9 Score 0 12/25/2024 Patient Health Questionnaire-9 Score 0 12/25/2024 Last PHQ-9: Questionnaire Data Not on file 0 12/25/2024 Housing Stability Answer Date Recorded What is [...] Date Recorded Patient Health Questionnaire-2 Score 0 12/25/2024 Internet Access Answer Date Recorded Internet Access [...] Sign Reading Time Taken Comments Blood Pressure 128/76 12/25/2024 12:53 PM EDT Pulse 65 12/25/2024 12:53 PM EDT Temperature 36.9 ??C (98.5 ??F) 12/25/2024 12:53 PM E DT Respiratory Rate 20 12/25/2024 12:53 PM EDT Oxygen Saturation 99% 12/25/2024 12:53 PM EDT Inhaled Oxygen Concentration - - Weight 75.8 kg (167 lb 3.2 oz) 12/25/2024 12:53 PM EDT Height 182.9 cm (6') 12/25/2024 12:53 PM EDT Body Mass Index 22.68 12/25/2024 12:53 PM EDT Plan of Treatment Health Maintenance Due Date Last Done Comments CT Colonography 1960 Dental Oral Exam 1960 Dental Prophylaxis 1960 Dental X-Ray: Bitewings 1960 FIT DNA/Cologuard 1960 FIT 1960 FOBT 1960 Sigmoidoscopy 1960 Pneumococcal Vaccine: 50+ Years (2 of 2 - PCV) 06/19/2015 06/19/2014, 05/15/2012 RSV Patients and Patients Aged 60 years or older (1 - Risk 60-74 years 1-dose series) 2020 Colonoscopy 12/29/2023 12/28/2013 Colorectal Cancer Screening 12/29/2023 COVID-19 Vaccine ( season) 2024 02/13/2021, 01/16/2021 Alcohol/Substance Use Screening 01/14/2025 01/15/2024 Diabetes: Foot Exam 01/14/2025 01/15/2024, 01/15/2024, 01/15/2024, Additional history exists Diabetes: Hemoglobin A1C 03/26/2025 025, 10/07/2024, 05/20/2024, Additional history exists Eye Exam 07/08/2025 07/08/2024 Diabetes: Urine Protein Screening 10/08/2025 10/08/2024, 04/17/2023, 11/21/2021, Additional history exists Lipid Panel 10/08/2025 10/08/2024, 02/01, 02/21/2023, Additional history exists SDOH Screening 10/12/2025 10/12/2024 Depression Screening 12/25/2025 12/25/2024, 12/26/19 Tobacco Screening 12/28/2025 12/28/2024 Dental X-Ray: Full Mouth 12/26/2027 12/24/2024 DTaP/Tdap/Td Vaccines (3 - Td or Tdap) [...] Diagnosis Comments POCT GLYCATED HEMOGLOBIN, TOTAL Routine 12/25/2024 1:06 PM EDT Type 2 diabetes mellitus with hyperglycemia, without long-term current use of insulin ([facility]) POCT GLUCOSE Routine 12/25/2024 1:03 PM EDT Type 2 diabetes mellitus with hyperglycemia, without long-term current use of insulin ([facility]) CASE PRESENTATION, DETAILED AND EXTENSIVE TREATMENT PLANNING Routine 12/24/2024 11:30 AM EDT PANORAMIC RADIOGRAPHIC IMAGE Routine 12/24/2024 11:30 AM EDT LIMITED ORAL EVALUATION - PROBLEM FOCUSED Routine 12/24/2024 11:30 AM EDT AMB REFERRAL TO WOUND CLINIC Routine 11/12/2024 Wound of left foot CREATINE KINASE, TOTAL Routine 11/09/2024 3:40 PM EDT BASIC METABOLIC PANEL Routine 11/09/2024 3:40 PM EDT CBC WITH AUTO DIFFERENTIAL Routine 11/09/2024 3:40 PM EDT POCT GLUCOSE Routine 10/26/2024 9:44 AM EST Type 2 diabetes mellitus with hyperglycemia, without long-term current use of insulin ([facility]) SED RATE BY MODIFIED WESTERGREN Routine 10/16/2024 [...] without long-term current use of insulin (CMS/HCC) AMB REFERRAL TO OPTOMETRY Routine 07/08/2024 Type [...] Maintenance Results * (ABNORMAL) POCT HGB A1C (12/25/2024 1:06 PM EDT) Hemoglobin A1C 8.7(A) 4.0 - 6.0 % Blood 12/25/2024 1:06 PM EDT [facility] POINT OF CARE TEST ENTER/EDIT ORDERABLES Final Result * (ABNORMAL) POCT Glucose (12/25/2024 1:03 PM EDT) Only the most recent of2 resultswithin the time period is included. Pathologist [facility] Glucose Blood, POC 207(A) 60 - 200 mg/dL Blood Capillary blood specimen / Unknown 12/25/2024 1:03 PM EDT Result [facility] POINT OF CARE TEST ENTER/EDIT ORDERABLES Final Result * Referral to Wound Clinic (11/12/2024) Result [facility] OUTPATIENT REFERRAL ORDERABLE S Final Result * (ABNORMAL) CBC auto differential (11/09/2024 3:40 PM EDT) Only the most recent of3 resultswithin the time period is included. [facility] White Blood Count 4.0(L) 4.8 - 10.8 X10*3/uL [facility] Red Blood Count 4.93 4.60 - 5.80 X10*6/uL [facility] Hemoglobin 13.4(L) 14.0 - 18.0 g/dl [facility] Hematocrit 41.9(L) 42.0 - 52.0 % [facility] Mean Corpuscular Volume 85.0 80.0 - 98.0 fL [facility] Mean Corpuscular Hemoglobin 27.2 27.0 - 33.0 pg [facility] Mean Corpuscular HGB Conc 32.0 31.0 - 36.0 g/dl [facility] Red Cell Distribution Width 12.7 11.0 - 16.0 % [facility] Platelet Count 191 160 - 400 X10*3/uL [facility] Mean Platelet Volume 10.1 9.4 - 12.4 fL [facility] Neutrophils Percent Auto 64.2 45 - 73 % [facility] Imm Gran Pct Auto 0.2 0.0 - 0.4 % [facility] Lymphocytes Percent Auto 22.2 20 - 40 % [facility] Monocytes Percent Auto 8.2 2 - 11 % [facility] Eosinophils Percent Auto 4.5(H) 0 - 4 % [facility] Basophils Percent Auto 0.7 0 - 2 % [facility] NRBC Pct Auto 0.0 0.0 - 0.2 /100WBC [facility] Neutrophils Absolute Auto 2.6 2.0 - 8.3 x10*3/uL [facility] Imm Gran Abs Auto 0.01 0.00 - 0.03 X10*3/uL [facility] Lymphocytes Absolute Auto 0.9(L) 1.2 - 4.9 X10*3/uL [facility] Monocytes Absolute Auto 0.3 0.1 - 1.2 X10*3/uL [facility] Eosinophils Absolute Auto 0.2 0.0 - 0.4 X10*3/uL [facility] Basophils Absolute Auto 0.0 0.0 - 0.2 X10*3/uL [facility] NRBC Abs Auto 0.000 0.0 - 0.012 X10*3/uL [facility] 11/09/2024 3:40 PM EDT 11/09/2024 4:33 PM EDT us Shayna Bryant MD LAB BLOOD ORDERABLES Final Res ult [facility] [address], [place] [phone] * Creatine Kinase, Total (11/09/2024 3:40 PM EDT) Creatine Kinase Total 60 38 - 174 U/L [facility] 11/09/2024 3:40 PM EDT 11/09/2024 4:33 PM EDT Shayna Bryant MD LAB BLOOD ORDERABLES Final Res ult Performing Organization Address [facility] Co de Phone Number [facility] [address] [place] [address] [phone] * (ABNORMAL) Basic Metabolic Panel (11/09/2024 3:40 PM EDT) Sodium 139 135 - 145 mmol/L [facility] Potassium 4.4 3.3 - 5.1 mmol/L [facility] Chloride 106 96 - 108 mmol/L [facility] Carbon Dioxide 23 22 - 29 mmol/L [facility] Anion Gap 14 12 - 20 [facility] Urea Nitrogen (BUN) 20(H) 9 - 16 mg/dL [facility] Creatinine, Serum 0.88 0.5 - 1.4 mg/dL [facility] Estimated Glomerular Filt Rate >60 [facility] Comment:Chronic Kidney Disea se: Estimated GFR < 60 mL/min/1.78z6Ngpdlg Kidney Disease: Estimated GFR < 15 mL/min/1.73m2 Glucose 183(H) 60 - 115 mg/dL [facility] Calcium 10.1 8.4 - 10.2 mg/dL [facility] 11/09/2024 3:40 PM EDT 11/09/2024 4:33 PM EDT Shayna Bryant MD LAB BLOOD ORDERABLES Final Res ult Performing Organization Address [facility] Co de Phone Number [facility] [address] [place] [address] [phone] * (ABNORMAL) Sed Rate by Modified Maycol (10/16/2024 6:20 PM EST) Only the most recent of2 resultswithin the time period is included. Erythrocyte Sedimentation Rate 54(H) 0 - 15 MM/HR [facility] Comment:Patients with polycy themia and many hemoglobin abnormalitiesmay have depressed sed rates whereas patients with anemiamay have elevated sed rates. 10/16/2024 6:20 PM EST 10/16/2024 6:27 PM EST Generic External Data Provider LAB BLOOD ORDERAB LES Final Result Performing Organization Address [facility] Co de Phone Number [facility] [address] [place] [phone] * (ABNORMAL) C-reactive Protein (10/16/2024 6:20 PM EST) Only the most recent of2 resultswithin the time period is included. C Reactive Protein 1.74(H) < or = 0.50 mg/dL [facility] 10/16/2024 6:20 PM EST 10/16/2024 6:27 PM EST Generic External Data Provider LAB BLOOD ORDERAB LES Final Result Performing Organization Address [facility] Co me Phone Number [facility] [address] [place] [phone] * Lipase (10/16/2024 6:20 PM EST) Lipase 25 8 - 78 U/L [facility] 10/16/2024 6:20 PM EST 10/16/2024 6:27 PM EST Generic External Data Provider LAB BLOOD ORDERAB LES Final Result Performing Organization Address [facility] de Phone Number [facility] [address] [place] [phone] * Lactic Acid (10/16/2024 6:20 PM EST) Lactic Acid 1.0 0.5 - 2.0 mmol/L [facility] 10/16/2024 6:20 PM EST 10/16/2024 6:27 PM EST us Generic External Data Provider LAB BLOOD ORDERAB LES Final Result [facility] [address] [place] [address] [phone] * (ABNORMAL) Comprehensive Metabolic Panel (10/16/2024 6:20 PM EST) Only the most recent of2 resultswithin the time period is included. Sodium 136 135 - 145 mmol/L [facility] Potassium 4.0 3.3 - 5.1 mmol/L [facility] Chloride 100 96 - 108 mmol/L [facility] Carbon Dioxide 28 22 - 29 mmol/L [facility] Anion Gap 12 12 - 20 [facility] Urea Nitrogen (BUN) 14 9 - 16 mg/dL [facility] Creatinine, Serum 1.24 0.5 - 1.4 mg/dL [facility] Creatinine Clr Calc Pharmacy 63.5 [facility] Comment:eGFR (calculated fro m the MDRD study equation) and eCrCl(calculated from the Cockcroft-Gault equation) are based ondifferent parameters and may not yield comparable results.If eCrCl result is absurd, please check patient'sheight/weight. Estimated Glomerular Filt Rate 59 [facility] Comment:Chronic Kidney Disea se: Estimated GFR < 60 mL/min/1.38b5Fiwweb Kidney Disease: Estimated GFR < 15 mL/min/1.73m2 Glucose 248(H) 60 - 115 mg/dL [facility] Calcium 10.0 8.4 - 10.2 mg/dL [facility] Bilirubin, Total 0.3 0.0 - 1.0 mg/dL [facility] Aspartate Amino Transferase 21 5 - 37 U/L [facility] Alanine Aminotransferase 16 0 - 40 U/L [facility] Total Protein 8.8(H) 6.5 - 8.0 g/dL [facility] Albumin Level 4.4 3.5 - 5.0 g/dL [facility] Alkaline Phosphatase 78 39 - 117 U/L [facility] 10/16/2024 6:20 PM EST 10/16/2024 6:27 PM EST us Generic External Data Provider LAB BLOOD ORDERAB LES Final Result [facility] [address] [place] [phone] * MR Foot w and w/o Contrast Left (10/14/2024 2:44 PM EST) Anatomical Region Laterality Modality Lower Extremities, Foot Left Magnetic Resonance 10/14/2024 2:44 PM EST Narrative 10/14/2024 4:35 PM EST ? [facility] ?[address] ?[place] [address] ? Magnetic Resonance Report ? Signed ? Patient: Octavio Hardin,Andrea ?MR#: [id number] ?? [id number] ? : 1960 ?Acct:[id number] ? Age/Sex: 63 / M ?ADM Date: 10/14/24 ? Loc: HO.MRI ? Attending Dr: Maritza Alfonso [employer]ER TAILER ? Ordering Physician: Maritza Alfonso PLANER TAILER ?? Date of Service: 10/14/24 ?? Procedure(s): MR foot LT wo/w con ?? Accession Number(s): [id number] ? cc: Maritza Alfonso [employer]ANER TAILER ? EXAMINATION: ?? MR FOOT WITHOUT AND [...] DD/ 1444 ? TD/TT: 10/14/24 1545 ? [employer]ber [employer] Worker: ? Procedure Note Donotuseinterpreter, Image - 10/14/[address] [address] Magnetic Resonance Report Signed Patient: Néstor Chamorro LMR#: [id number] : 1960cct:[id number] Age/Sex: 63 / MADM Date: 10/14/24 Loc: HO.MRI Attending Dr: Maritza Alfonso [employer] TAILER Ordering Physician: Maritza Alfonso Date of Service: 10/14/24 Procedure(s): MR foot LT wo/w con Accession Number(s): [id number] cc: Maritza Alfonso EXAMINATION: MR FOOT WITHOUT [...] 10/14/24 1632 DD/ 1444 TD/TT: 10/14/24 1545 [employer] Worker: [facility] IMG MRI PROCEDURES Final Resu lt * Albumin, Random Urine W/Creatinine (10/08/2024 9:55 AM EST) Creatinine, Urine 98.17 mg/dL [facility] Microalbumin Urine 20.0 mg/L [facility] Microalbum Creatinine Ratio Ur 20.3 <30 ug/mg cr [facility] Comment:Albumin/Creatinine R atio Reference Ranges: Normal: < 30 ug/mg creatinine Microalbuminuria: 30 - 300 ug/mg creatinineClinical Albuminuria: > 300 ug/mg creatinine Urine 10/08/2024 9:55 AM EST 10/08/2024 10:32 AM EST [facility] LAB URINE ORDERABLES Final Re sult Performing Organization Address [facility] Co de Phone Number [facility] [address] [place] [phone] * Lipid Panel, Standard (10/08/2024 9:55 AM EST) Triglycerides 51 <150 mg/dL [facility] Comment:Desirable Triglyceri de: less than 150 mg/dLBorderline High Triglyceride 150-199 mg/dLHigh Triglyceride: 200-499 mg/dLVery High Triglyceride: greater than or equal to 5OO mg/dL Cholesterol 153 <200 mg/dL [facility] Comment:Desirable Cholestero l: less than 200 mg/dLBorderline High Cholesterol: 200-239 mg/dLHigh Cholesterol: greater than 239 mg/dL LDL Cholesterol Calculated 91 <100 mg/dL [facility] Comment:Desirable LDL: less than 100 mg/dLNear Optimal/Above Optimal LDL: 110- 129 mg/dLBorderline High LDL: 130-159 mg/dLHigh LDL: 160-189 mg/dLVery High LDL: greater than or equal to 190 mg/dL HDL Cholesterol 52 >40 mg/dL [facility] Comment:Desirable HDL: great er than 40 mg/dL Note: This HDL assay may give artificially low results in patients with liver disease. Blood Venous blood specimen / Unknown 10/08/2024 9:55 AM EST 10/08/2024 9:55 AM EST [facility] LAB BLOOD ORDERABLES Final Re sult Performing Organization Address [facility]/ZIP Co de Phone Number [facility] [address] [place] [address] [phone] * Referral to Optometry (07/08/2024) [facility] OUTPATIENT REFERRAL ORDERABLE S Final Result * HEPATITIS C AB W/REFL TO HCV RNA, QN, PCR (05/24/2022 11:27 AM EDT) HEPATITIS C ANTIBODY NON-REACT ALICIA NON-REACT ALICIA [facility] INDEX 0.06 <1.00 [facility] Comment: ?? HCV antibody was non-reactive. There is no laboratory ?? evidence of HCV infection. ?? In most cases, no further action is required. However, if recent HCV exposure is suspected, a test for HCV RNA (test code 29786) is suggested. ?? For additional information please refer to [email or web address]/faq/VNJ95x7 (This link is being provided for informational/ educational purposes only.) ?? 05/24/2022 11:2 7 AM EDT [facility] HISTORICAL/NON ORDERABLE LABS Final Result [facility] [address] * HIV 1/2 ANTIGEN/ANTIBODY,FOURTH GENERATION W/RFL (05/24/2022 11:27 AM EDT) HIV-1/2 ANTIGEN AND ANTIBODIES, 4TH GENERATION W/ REFLEX NON-REACT ALICIA NON-REACT ALICIA [facility] Comment: HIV-1 antigen and HIV-1/HIV-2 [...] ? For additional information please refer to [email or web address]/HRI810 (This link is being provided for informational/ educational purposes only.) ? The performance of this assay has not been clinically validated in patients less than 2 years old. ?? 05/24/2022 11:2 7 AM EDT us Maritza [place] [employer] LAB BLOOD ORDERABLES Final Re sult [facility] [address] * Colonoscopy (12/28/2013) Colonoscopy performed Historical Provider MD HEALTH MAINTENANCE Final Result from Last 3 Months or Most Recently Relevant to Health Maintenance Insurance MEDICARE Member Subscriber Plan / Payer (Ef fective 2011-Present) Name:Néstor Chamorro Luis Member ID:[id number] Relation to Subscriber:Self Name:Octavio Hardin Elías Subscriber ID:[id number] Payer ID:STATE Group ID:Not on file Type:Medicare Address: [facility] [address] [phone] [facility] [address] Care Teams Makeup Editor Relationship Specialty Start Date End Date [place] [facility] [address] [place] [address] PCP - General Family Medicine 05/24/22 Chetan A 10/21/24
--- OUTSIDE RECORDS SUMMARY | 2025-01-05 09:17 | XMS_ITS | Encounter Summary ---
Author Organization [facility] Address [address] [place] [address] Phone Care Team Providers Care Lockstitch Binder Name Role Phone Kaden Maritza Primary Care Provider [phone] Encounter Details Date Type Department Care Team (Late Contact Info) Description 02/25/2023 Documentation Only [facility] [address] [place] [phone] Hank Cho PA Social History Tobacco Use [...] Visit [facility] [address] [place] [address] Mick Badillo MD [address] [place] [address] [place] [phone] documented as of this encounter Visit Diagnoses Not on filedocumented in this encounter Care Teams Lockstitch Binder Relationship Specialty Start Date End Date Maritza Alfonso [address] [place] [address] PCP - General 06/26/22 documented as of this encounter
--- OUTSIDE RECORDS SUMMARY | 2025-01-05 09:17 | XMS_ITS | Encounter Summary ---
Author Organization [employer] Address [address] [facility] 7t [place] [address] Care Team Providers Care Mobile Home Technician Name Role Phone [facility] Primary Care Provider [phone] Reason for Visit * Reason Onset Date Comments Referral 07/03/2024 Encounter Details Date Type Department Care Team ([facility] st Contact Info) Description 07/03/[address] [facility] [address] [place], [place] [phone] [facility] [address] [place], [place] [phone] Referral Social History Tobacco Use Types Packs/Day [...] Y/N: Yes Provider name or facility name: [facility] Escort needed: Y/N: No Do you have a wheelchair: Y/N: No If yes- Manual or electric: Visits: (amount of visits) ( x monthly, weekly, daily) documented in this encounter Plan of Treatment Not on file documented as of this encounter Visit Diagnoses Not on filedocumented in this encounter Additional Health Concerns Assessment Noted Time PHQ-9 Depression Total Score: 0 01/15/20 24 9:49 AM EDT documented as of this encounter Care Teams Mobile Home Technician Relationship Specialty Start Date End Date Maritza Alfonso FNP [address] [place] [address] PCP - General Family Medicine 05/24/22 Chetan MEYERS 10/21/24 documented as of this encounter
--- OUTSIDE RECORDS SUMMARY | 2025-01-05 09:17 | XMS_ITS | Encounter Summary ---
Author Organization [facility] Address [address] [place] [address] Phone Care Team Providers Care Billing Typist Name Role Phone [facility] Primary Care Provider [phone] Encounter Details Date Type Department Care Team (Late Contact Info) Description 10/25/2023 Documentation Only [facility] [address] [place] [address] Diane Morrison [address] [place] [address] Social History Tobacco Use Types [...] [facility] [address] [place] [address] Mick Badillo MD [address] [place] [address] [place] [address] documented as of this encounter Visit Diagnoses Not on filedocumented in this encounter Care Teams Billing Typist Relationship Specialty Start Date End Date [facility] [address] [place], [place] [phone] PCP - General 06/26/22 documented as of this encounter
--- OUTSIDE RECORDS SUMMARY | 2025-01-05 09:17 | XMS_ITS | Clinical Summary ---
Author Organization [facility] [place], Address [address] [place] [address] [place] [address] Phone Care Team Providers Care Remodeler Name Role Phone [facility] Primary Care Provider [phone] Allergies Active Allergy Reactions Criticality Noted Date [...] diabetic chronic kidney disease 11/02/2019 05/18/2021 Immunizations Immunization Administration Dates Next Due Influenza Split 07/07/2013,05/15/2012 [...] Visit [facility] [place], [address] [place] [address] Mick Badillo MD [address] [facility] [place] [phone] Health Maintenance Due Date Last Done Comments Colorectal Cancer Screening: Annual FOBT 2009 Colorectal Cancer Screening: Colonoscopy 2009 Colorectal Cancer Screening: Sigmoidoscopy 2009 Pneumococcal Vaccine: 50+ Years (3 of 3 - PCV) 06/19/2015 06/19/2014, 05/15/2012 Diabetes: Ophthalmology Exam 11/23/2019 Diabetes: Pedal Pulse Checked 11/23/2019 Diabetes: Sensory Foot Exam 11/23/2019 Diabetes: Visual Foot Exam 11/23/2019 Diabetes: Hemoglobin A1C 08/19/2024 024, 10/16/2023, 12/31/2022, Additional history exists Influenza Vaccine (Season Ended) 2025 07/29/2023, 07/22/2021, 06/18/2020, Additional history exists Pneumococcal Vaccine: Peds (0 to 5 Years) and At-Risk Patients (6 to 49 Years) Discontinued 06/19/2014, 05/15/2012 Hepatitis B Vaccine Aged Out No longe r eligible based on patient's age to complete this topic Procedures Procedure Name Priority Date/Time Associated Diagnosis Comments LAB COAL PULVERIZER OPERATOR Routine 01/29/2018 12:00 AM EDT from Last 3 Months or Most Recently Relevant to Health Maintenance Results * Lab Computer Processing Scheduler (01/29/2018 12:00 AM EDT) Hemoglobin A1C 7.8 % KCA 01/29/2018 Kca Conversion LAB [id number] LICITED RESULTS Final Result [facility] from Last 3 Months or Most Recently Relevant to Health Maintenance Insurance * Guarantor: Néstor Chamorro Account Type Relation to Patient Date of Phone Billing Address Personal/Family Self [address] [place] [place] [id number] Medicaid [place] Medicare * Guarantor: Néstor Chamorro Account Type Relation to Patient Date of Phone Billing Address Personal/Family Self [address] [place] [place] [id number] * Guarantor: Néstor Chamorro Account Type Relation to Patient Date of Phone Billing Address Personal/Family Self [address] [place] [place] [address] Care Teams Remodeler Relationship Specialty Start Date End Date [facility] [address] [place] [address] [facility] - General 06/26/22
--- OUTSIDE RECORDS SUMMARY | 2025-01-05 09:17 | XMS_ITS | Encounter Summary ---
Author Organization [employer] Address [address] [facility] [address] 7t [place] [address] Care Team Providers Care Tuck Pointer Name Role Phone [facility] Primary Care Provider [phone] Encounter Details Date Type Department Care Team ([facility] st Contact Info) Description 07/29/2023 Orders Only [facility] [address] [place], [place] [phone] [facility] [address] [place] [address] Neoplasm of uncertain behavior (Primary Dx) Social [...] documented as of this encounter Care Teams Tuck Pointer Relationship Specialty Start Date End Date Maritza Alfonso FNP [address] [place] [address] PCP - General Family Medicine 05/24/22 Chetan A 10/21/24 documented as of this encounter
--- OUTSIDE RECORDS SUMMARY | 2025-01-05 09:17 | XMS_ITS | Encounter Summary ---
Author Organization [facility] Address [address] [place] [address] Phone Care Team Providers Care Proof Press Operator Name Role Phone Kaden Maritza Primary Care Provider [phone] Encounter Details Date Type Department Care Team (Late Contact Info) Description 05/31/2022 Documentation Only [facility] [address] [place] [phone] Hank Cho PA Social History Tobacco Use [...] Visit [facility] [address] [place] [address] Mick Badillo MD [address] [place] [address] [place] [phone] documented as of this encounter Visit Diagnoses Not on filedocumented in this encounter Care Teams Proof Press Operator Relationship Specialty Start Date End Date Maritza Alfonso 230 [place] [address] PCP - General 06/26/22 documented as of this encounter
--- OUTSIDE RECORDS SUMMARY | 2025-01-05 09:17 | XMS_ITS | Encounter Summary ---
Author Organization [facility] Address [address] [place] [address] Phone Care Team Providers Care Casino Cashier Manager Name Role Phone [facility] Primary Care Provider [phone] Encounter Details Date Type Department Care Team (Late Contact Info) Description 10/25/2023 Documentation Only [facility] [address] [place] [address] Diane Morrison [address] [place] [address] Social History Tobacco Use Types [...] Visit [facility] [address] [place] [address] Mick Badillo MD [address] [place] [address] [place] [address] documented as of this encounter Visit Diagnoses Not on filedocumented in this encounter Care Teams Casino Cashier Manager Relationship Specialty Start Date End Date [facility] [address] [place], [place] [phone] PCP - General 06/26/22 documented as of this encounter
--- OUTSIDE RECORDS SUMMARY | 2025-01-05 09:17 | XMS_ITS | Encounter Summary ---
Author Organization [facility] Address [address] [place] [address] Phone Care Team Providers Care Medical Illustrator Name Role Phone [facility] Primary Care Provider [phone] Encounter Details Date Type Department Care Team (Late Contact Info) Description 09/02/2023 Orders Only [facility] [address] [place] [address] Hank Cho PA Chronic kidney [...] [facility] [address] [place] [address] Mick Badillo MD [address] [place] [address] [place] [address] documented as of this encounter Visit Diagnoses Diagnosis Chronic kidney disease, stage 2 (mild) Essential (primary) hypertension Type 2 diabetes mellitus, not otherwise specified (HCC) documented in this encounter Care Teams Medical Illustrator Relationship Specialty Start Date End Date [facility] [address] [place] [address] PCP - General 06/26/22 documented as of this encounter
--- OUTSIDE RECORDS SUMMARY | 2025-01-05 09:17 | XMS_ITS | Encounter Summary ---
Author Organization [facility] Address [address] [place] [address] Phone Care Team Providers Care Telephone Directory Distributor Driver Name Role Phone Kaden Maritza Primary Care Provider [phone] Encounter Details Date Type Department Care Team (Late Contact Info) Description 02/26/2023 Documentation Only [facility] [address] [place] [address] Hank Cho PA Social History Tobacco Use [...] [facility] [address] [place] [address] Mick Badillo MD [address] [place] [address] [place] [phone] documented as of this encounter Visit Diagnoses Not on filedocumented in this encounter Care Teams Telephone Directory Distributor Driver Relationship Specialty Start Date End Date Maritza Alfonso [address] [place] [address] PCP - General 06/26/22 documented as of this encounter
--- OUTSIDE RECORDS SUMMARY | 2025-01-05 09:17 | XMS_ITS | Encounter Summary ---
Author Organization [facility] Address [address] [place] [address] Phone Care Team Providers Care Housing Case Manager Name Role Phone [facility] Primary Care Provider [phone] Encounter Details Date Type Department Care Team (Late Contact Info) Description 06/29/2024 Orders Only [facility] [address] [place] [address] Hank Cho PA Chronic kidney [...] [facility] [address] [place] [address] Mick Badillo MD [address] [place] [address] [place] [address] documented as of this encounter Visit Diagnoses Diagnosis Chronic kidney disease, stage 2 (mild) Type 2 diabetes mellitus, not otherwise specified (HCC) Essential (primary) hypertension Microalbuminuria documented in this encounter Care Teams Housing Case Manager Relationship Specialty Start Date End Date [facility] [address] [place] [address] PCP - General 06/26/22 documented as of this encounter
--- OUTSIDE RECORDS SUMMARY | 2025-01-05 09:17 | XMS_ITS | Encounter Summary ---
Author Organization [facility] Address [address] [place] [address] Phone Care Team Providers Care Forging Die Sinker Name Role Phone Kaden Gowrie Primary Care Provider [phone] Encounter Details Date Type Department Care Team (Late Contact Info) Description 06/22/2022 Documentation Only [facility] [address] [place] [address] Hank Cho PA Social History Tobacco Use [...] Visit [facility] [address] [place] [address] Mick Badillo MD [address] [place] [address] [place] [address] documented as of this encounter Visit Diagnoses Not on filedocumented in this encounter Care Teams Forging Die Sinker Relationship Specialty Start Date End Date Maritza Alfonso [address] [place] [address] PCP - General 06/26/22 documented as of this encounter
--- OUTSIDE RECORDS SUMMARY | 2025-01-05 09:17 | XMS_ITS | Encounter Summary ---
Author Organization [facility] Address [address] [place] [address] Phone Care Team Providers Care Global Marketing Manager Name Role Phone Kaden Maritza Primary Care Provider [phone] Encounter Details Date Type Department Care Team (Late Contact Info) Description 05/28/2022 Documentation Only [facility] [address] [place] [address] Hank Cho PA Social History Tobacco Use [...] Visit [facility] [address] [place] [address] Mick Badillo MD [address] [place] [address] [place] [address] documented as of this encounter Visit Diagnoses Not on filedocumented in this encounter Care Teams Global Marketing Manager Relationship Specialty Start Date End Date Maritza Alfonso [address] [place] [address] PCP - General 06/26/22 documented as of this encounter
--- OUTSIDE RECORDS SUMMARY | 2025-01-05 09:17 | XMS_ITS | Encounter Summary ---
Author Organization [facility] Address [address] [place] [address] Phone Care Team Providers Care Elastic Yarn Twister Helper Name Role Phone [facility] Primary Care Provider [phone] Encounter Details Date Type Department Care Team (Late Contact Info) Description 07/07/2024 Documentation Only [facility] [address] [place] [address] Diane Morrison [address] [place] [address] Social History Tobacco Use Types [...] [facility] [address] [place] [address] Mick Badillo MD [address] [place] [address] [place] [address] documented as of this encounter Visit Diagnoses Not on filedocumented in this encounter Care Teams Elastic Yarn Twister Helper Relationship Specialty Start Date End Date [facility] [address] [place], [place] [phone] PCP - General 06/26/22 documented as of this encounter
--- OUTSIDE RECORDS SUMMARY | 2025-01-05 09:17 | XMS_ITS | Encounter Summary ---
Author Organization [facility] Address [address] [place] [address] Phone Care Team Providers Care Mechanical Apprentice Name Role Phone [facility] Primary Care Provider [phone] Encounter Details Date Type Department Care Team (Late Contact Info) Description 05/31/2022 Documentation Only [facility] [address] [place] [address] Alexander Zhou MD [address] [place] [address] [place] [address] Social History Tobacco Use Types [...] Visit [facility] [address] [place] [address] Mick Badillo MD [address] [facility] [place] [address] documented as of this encounter Visit Diagnoses Not on filedocumented in this encounter Care Teams Mechanical Apprentice Relationship Specialty Start Date End Date [facility] [address] [place] [id number] PCP - General 06/26/22 documented as of this encounter
--- OUTSIDE RECORDS SUMMARY | 2025-01-05 09:17 | XMS_ITS | Encounter Summary ---
Author Organization [facility] Address [address] [place] [address] Phone Care Team Providers Care Tree Climber Name Role Phone Kaden Maritza Primary Care Provider [phone] Encounter Details Date Type Department Care Team (Late Contact Info) Description 06/01/2022 Documentation Only [facility] [address] [place] [address] Hank Cho PA Social History Tobacco Use [...] [facility] [address] [place] [address] Mick Badillo MD [address] [place] [address] [place] [phone] documented as of this encounter Visit Diagnoses Not on filedocumented in this encounter Care Teams Tree Climber Relationship Specialty Start Date End Date Maritza Alfonso [address] [place] [address] PCP - General 06/26/22 documented as of this encounter
== END 2025-01-05 08:47 | disposition home or self-care (01) ==
LOC: HO.US 08:46
PROVIDERS: PCP Registered Nurse; Visit Provider Registered Nurse
DX: R10.11 Right upper quadrant pain (principal)
CPT/HCPCS: 76700

== ENCOUNTER → 2025-01-05 08:48 | Outpatient (BNV) | payer MEDICARE, MEDICAID, SELFPAY | PROVIDERS: PCP Registered Nurse; Visit Provider Radiology Diagnostic Radiology | DX: R10.11 Right upper quadrant pain (principal) | CPT/HCPCS: 76700 ==

== ENCOUNTER 2025-02-26 10:42 | Outpatient (REF) | payer MEDICARE, MEDICAID, SELFPAY ==
--- NOTE | ~2025-02-26 | XR_ITS ---
CLINICAL HISTORY: NON HEALING WOUND Left foot three views Comparison: 08/13/2024 Findings: No acute fracture or dislocation identified. Soft tissue edema medial 1st digit. Degenerative change in multiple joints. No radiopaque foreign body noted. Impression: No acute bony abnormality This document has been electronically signed by: Angel Rodriguez MD on 02/27/2025 20:13:57
--- OUTSIDE RECORDS SUMMARY | 2025-02-26 10:39 | XMS_ITS | Encounter Summary ---
Author Organization [facility] Address [address] [place] [address] Phone Care Team Providers Care Timing Inspector Name Role Phone [facility] Primary Care Provider [phone] Encounter Details Date Type Department Care Team (Late Contact Info) Description 10/25/2023 Documentation Only [facility] [address] [place] [address] Diane Morrison [address] [place] [address] Social History Tobacco Use Types [...] Care Team (Late Contact Info) Description 03/24/2025 10:10 AM EDT Office Visit [facility] [address] [place] [address] Mick Badillo MD [address] [place] [address] [place] [address] documented as of this encounter Visit Diagnoses Not on filedocumented in this encounter Care Teams Timing Inspector Relationship Specialty Start Date End Date [facility] [address] [place], [place] [phone] PCP - General 06/26/22 documented as of this encounter
== END 2025-02-26 10:43 | disposition home or self-care (01) ==
LOC: HO.XRAY 10:42
PROVIDERS: PCP Registered Nurse; Visit Provider Registered Nurse
DX: M86.9 Osteomyelitis, unspecified (principal); S91.302A Unspecified open wound, left foot, initial encounter; R60.0 Localized edema; X58.XXXA Exposure to other specified factors, initial encounter; Y93.9 Activity, unspecified; Y92.9 Unspecified place or not applicable; Y99.9 Unspecified external cause status
CPT/HCPCS: 73630

== ENCOUNTER → 2025-02-26 10:43 | Outpatient (BNV) | payer MEDICARE, MEDICAID, SELFPAY | PROVIDERS: PCP Registered Nurse; Visit Provider Radiology Diagnostic Radiology | DX: R60.0 Localized edema (principal) | CPT/HCPCS: 73630 ==

== ENCOUNTER 2025-03-02 11:00 | Outpatient (RCR) | payer MEDICARE, MEDICAID, SELFPAY | END 2025-03-02 13:00 | disposition home or self-care (01) | LOC: HO.WCC 11:00 | PROVIDERS: PCP Registered Nurse; Visit Provider Surgery | DX: E11.610 Type 2 diabetes mellitus with diabetic neuropathic arthropathy (principal); E11.65 Type 2 diabetes mellitus with hyperglycemia; Z09 Encounter for follow-up examination after completed treatment for conditions other than malignant neoplasm; Z79.2 Long term (current) use of antibiotics; Z86.31 Personal history of diabetic foot ulcer | CPT/HCPCS: 11043; 99212; 99213; 99214 ==

== ENCOUNTER 2025-04-08 11:53 | Emergency (ER) | payer MEDICARE, MEDICAID, SELFPAY ==
[2025-04-08 12:03] VITALS: BP 131/73; BP 142/98; PULSE 107; PULSE 88; RESP 17; TEMP 36.8; O2SAT 97; BMI 21.9
--- NOTE | 2025-04-08 12:25 | PC.NURSE ---
Pt comes to ED today via EMS from home with c/o suspected allergic reaction to Cefepime. 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 Pt reports he woke this AM with some noted puffiness to upper lip, then after taking his 9am dose this morning the swelling to his lip increased. Pt denies and swelling to throat/tongue and denies any difficulty swallowing, breathing, or talking. VSS and O2 sat is 97% on RA. Swelling appears to be localized to upper lip. PICC line noted to RAC.
--- NOTE | 2025-04-08 12:41 | ED_ITS ---
HPI - General Adult General Chief complaint: Allergic Reaction Stated complaint: ALLERGIC REACTION TO CEFEPRIME PER EMS Time Seen by Provider: 04/08/25 12:41 History of Present Illness ED Provider: Indira BROOKE narrative: The patient is a 64-year-old male who was discharged from [facility] yesterday with a PICC line to receive antibiotics for osteomyelitis in his foot. Since April 05, 3 days ago, he has been on cefepime 2 g q.8 hours. He has also been on daptomycin 450 mg daily. He is also on lisinopril as 1 of his regular medications. Today the patient developed swelling of his upper lip. This was not associated with any fever, sweats, chills. This was not associated with any rash. This was not associated with any difficulty swallowing or difficulty speaking. It was not associated with any sense of swelling within the mouth. No neck swelling. No chest pain or shortness of breath. Related Data Home Medications ?Medication ?Instructions ?Recorded ?Confirmed aspirin 81 mg tablet,delayed 81 mg PO DAILY 02/07/23 0 10/17/24 release cholecalciferol (vitamin D3) 50 50 mcg PO DAILY 10/17/24 mcg (2,000 unit) capsule metformin 500 mg tablet,extended 500 mg PO BID 3 10/17/24 release 24 hr metoprolol succinate 50 mg 50 mg PO DAILY 02/07/23 tablet,extended release 24 hr atorvastatin 80 mg tablet 80 mg PO BEDTIME 10/17/24 Held on 10/20/24. Instructions: while on antibiotic isosorbide mononitrate 30 mg 30 mg PO DAILY 10/17/24 0 10/17/24 tablet,extended release 24 hr Previous Rx's ?Medication ?Instructions ?Recorded daptomycin 500 mg intravenous 437 mg IV Q24H 10/21/24 solution doxycycline hyclate 100 mg capsule 100 mg PO BID 30 da ys #60 caps 11/11/24 Allergies Allergy/AdvReac Type Severity Reaction Status Date / Time No Known Allergies Allergy Verified 04/08/25 12:08 Review of Systems Review of Systems: Yes all other systems are reviewed and are negative PMF Past Medical History Medical History Leucopenia HTN (hypertension) High cholesterol Diabetes Other and unspecified hyperlipidemia Type 2 diabetes mellitus with unspecified complications Atherosclerotic cardiovascular disease Surgical History History of incision and drainage (~12/2017) Family History Family History Father Liver disease Mother Diabetes Heart attack Sister Diabetes Kidney disease Stomach cancer Social History Social History Household Members: None Housing: Apartment Are you a primary health care facility administrator to a significant other at home: No Do you presently have visiting nurse or other home services: No Alcohol intake: former Patient Tobacco Use Status: Never used Tobacco Smoked in Last 30 Days: No Use of substances other than those prescribed or required for medical reasons: No Advance Directives: Yes Advance Directives on File: Yes Advance Directives Date on File: 04/05/22 Do you have a plan to hurt others: No Plan service: No Current occupational status: disabled Physical Exam ED Vital Signs: Vital Signs - 24 hr 04/08/25 12:03 04/08/25 15:17 Temperature 98.3 F 98.3 F Pulse Rate 88 73 Respiratory Rate 17 18 Blood Pressure 131/73 126/70 Pulse Oximetry 97 98 Oxygen Delivery Method Room Air Room Air BMI result Body Mass Index 21.9 Const Other: The patient is a slim 64-year-old male who looks somewhat chronically ill but who is awake, alert, and very pleasant. He does not seem in acute distress. He has obvious edema to the upper lip consistent with angioedema. He does not seem in any distress otherwise. HENMT Other: There is significant swelling to the patient's upper lip consistent with angioedema. The lower lip is not swollen. Other areas of the face are not swollen. The patient can fully open his mouth and there is no intraoral swelling. The tongue is not swollen. The posterior pharynx is not swollen. The airway is clear. Eyes General: appearance normal, both eyes and all related structures Neck Other: No neck swelling. No stridor. Resp Other: No wheezes Effort & Inspection: normal respiratory effort Auscultation: clear to auscultation bilaterally Cardio Rate: regular rate Rhythm: regular rhythm Heart sounds: S1 normal heart sound present and S2 normal heart sound present Skin Other: no hives, no rash Neuro Other: the patient is awake and alert with normal mental status. Cranial nerves 2-12 were intact. He moves his extremities symmetrically. Extrem Other: No peripheral edema. There is a dressing on his left foot. Medical Decision Making Medical Decision Making [facility] Narrative: The patient is a very pleasant 64-year-old male who was discharged from [facility] yesterday on April 07 after being hospitalized for treatment of the osteomyelitis in the left foot. He was discharged with a PICC line and has been receiving IV cefepime and daptomycin since April 05 at [facility] with a plan to continue these IV antibiotics at home. Today he developed swelling of his lip and a visiting nurse sent him to the emergency room out of concern for possible allergic reaction to his new antibiotics. On exam I feel the patient has angioedema of his upper lip which I think is much more likely to be associated with Tarun inhibitor related angioedema than an antibiotic allergic reaction. The patient is on lisinopril. I explained to the patient and his son that I felt that this finding of lip swelling is very common with Tarun inhibitors. I explained that I thought this would be a very unusual presentation of an allergic reaction to his new antibiotics. I therefore felt that the appropriate intervention would be to stop his lisinopril. I do not feel this is an indication to stop his antibiotics. The patient's angioedema of seemed to be stable in was not showing any signs of progression. There is no airway involvement. I think he can be further observed at home. He should return if worse. In the meantime instructions are to stop lisinopril and contact his PCP to discuss a possible replacement antihypertensive. Otherwise continue with the IV antibiotics as currently indicated. Return to the [facility] room if worse. Discharge Plan Discharge Clinical Impression: Angioedema of lips, TARUN inhibitor-aggravated angioedema Patient Disposition: Home, Self-Care Additional Instructions: The swelling of your upper lip is seen much more commonly has a reaction to your blood pressure medication lisinopril than it is as an allergic reaction to the antibiotics you are on. I therefore feel fairly confident that the swelling of your lips is a result of your lisinopril and not the antibiotics. Therefore please stop taking the lisinopril. I think he should continue taking the IV antibiotics. My expectation is that the swelling of your lip should improve over the next couple of days. Please contact your primary care doctor's office to discuss any possible new blood pressure medication to replace the lisinopril. If you feel significantly worse return to the emergency room here or to [facility]. Prescriptions: No Action aspirin 81 mg tablet,delayed release (DR/EC) 81 mg PO DAILY cholecalciferol (vitamin D3) 50 mcg (2,000 unit) capsule 50 mcg PO DAILY metformin 500 mg tablet extended release 24 hr 500 mg PO BID metoprolol succinate 50 mg tablet extended release 24 hr 50 mg PO DAILY atorvastatin 80 mg tablet 80 mg PO BEDTIME isosorbide mononitrate 30 mg tablet extended release 24 hr 30 mg PO DAILY daptomycin 500 mg recon soln 437 mg IV Q24H Rx Instructions: IV push doxycycline hyclate 100 mg capsule 100 mg PO BID 30 Days Qty: 60 0RF Referrals: Maritza Alfonso FNP [Primary Care Provider, Medical] Interventions: ED Discharge Assessment Last Done: 04/08/25 15:17 Discharge Date/Time: 04/08/25 15:18 Print Language: American
--- OUTSIDE RECORDS SUMMARY | 2025-04-08 13:31 | XMS_ITS | Encounter Summary ---
Author Organization [employer] Address [address] [place] [address] Care Team Providers Care Ocean Lifeguard Name Role Phone [place] [facility] BRANCH STORE MANAGER Primary Care Provider [phone] Encounter Details Date Type Department Care Team ([facility] st Contact Info) Description 07/18/2023 Abstract [facility] MEDICINE [address] [place], [place] [phone] Mireya Khalil Social History Tobacco Use Types [...] Care Team (Late st Contact Info) Description 04/12/2025 9:45 AM EDT Office Visit [facility] [address] [place] [address] Maritza Alfonso FNP [address] [place] [address] documented as of this encounter Visit Diagnoses Not on filedocumented in this encounter Additional Health Concerns Assessment Noted Time PHQ-9 Depression Total Score: 4 04/03/20 23 10:08 AM EDT documented as of this encounter Care Teams Ocean Lifeguard Relationship Specialty Start Date End Date Maritza Alfonso FNP [address] [place] [address] PCP - General Family Medicine 05/24/22 Chetan AKERSA 10/21/24 documented as of this encounter
--- OUTSIDE RECORDS SUMMARY | 2025-04-08 13:31 | XMS_ITS | Encounter Summary ---
Author Organization [facility] Address [address] [place] [address] Phone Care Team Providers Care Communications Professor Name Role Phone [facility] Primary Care Provider [phone] Encounter Details Date Type Department Care Team (Late Contact Info) Description 10/25/2023 Documentation Only [facility] [address] [place] [address] Diane Morrison [address] [place] [phone] Social History Tobacco Use Types Packs/Day [...] Department Care Team (Late Contact Info) Description 07/13/2025 9:30 AM EST Office Visit [facility] [address] [place] [address] Mick Badillo MD [address] [place] [address] [place] [address] documented as of this encounter Visit Diagnoses Not on filedocumented in this encounter Care Teams Communications Professor Relationship Specialty Start Date End Date [facility] [address] [place] [address] [id number] PCP - General 06/26/22 documented as of this encounter
[2025-04-08 15:17] VITALS: BP 126/70; PULSE 73; RESP 18; TEMP 36.8; O2SAT 98
== END 2025-04-08 15:18 | disposition home or self-care (01) ==
PROVIDERS: Emergency Provider Emergency Medicine; PCP Registered Nurse
DX: T78.3XXA Angioneurotic edema, initial encounter (principal); T78.49XA Other allergy, initial encounter; I10 Essential (primary) hypertension; T46.4X5A Adverse effect of angiotensin-converting-enzyme inhibitors, initial encounter; Y92.098 Other place in other non-institutional residence as the place of occurrence of the external cause; Z79.899 Other long term (current) drug therapy
CPT/HCPCS: 99282; 99284

== ENCOUNTER 2025-04-12 11:33 | Outpatient (REF) | payer MEDICARE, MEDICAID, SELFPAY ==
[2025-04-12 11:41] LABS: MANUAL DIFF FLAG NO
[2025-04-12 11:48] LABS: Hematocrit 39.5 % (42.0-52.0); Hemoglobin 12.7 g/dl (14.0-18.0); Imm Gran Abs Auto 0.02 X10*3/uL (0.00-0.03); Imm Gran Pct Auto 0.4 % (0.0-0.4); Lymphocytes Absolute Auto 0.8 X10*3/uL (1.2-4.9); Mean Corpuscular HGB Conc 32.2 g/dl (31.0-36.0); Mean Corpuscular Hemoglobin 27.3 pg (27.0-33.0); Mean Corpuscular Volume 84.9 fL (80.0-98.0); NRBC Abs Auto 0.000 X10*3/uL (0.0-0.012); NRBC Pct Auto 0.0 /100WBC (0.0-0.2); Platelet Count 235 X10*3/uL (160-400); Red Blood Count 4.65 X10*6/uL (4.60-5.80); White Blood Count 4.5 X10*3/uL (4.8-10.8)
--- OUTSIDE RECORDS SUMMARY | 2025-04-12 12:12 | XMS_ITS | Encounter Summary ---
Author Organization [facility] Address [address] [place] [address] Phone Care Team Providers Care Hr Advisor Name Role Phone [facility] Primary Care Provider Encounter Details Date Type Department Care Team (Late Contact Info) Description 10/25/2023 Documentation Only [facility] [address] [place] [address] Diane Morrison [address] [place] [phone] Social History Tobacco Use Types Packs/Day [...] [facility] [address] [place] [address] Mick Badillo MD [address] [place] [address] [place] [address] documented as of this encounter Visit Diagnoses Not on filedocumented in this encounter Care Teams Hr Advisor Relationship Specialty Start Date End Date [facility] [address] [place] [address] [id number] PCP - General 06/26/22 documented as of this encounter
--- OUTSIDE RECORDS SUMMARY | 2025-04-12 12:12 | XMS_ITS | Encounter Summary ---
Author Organization [email or web address] Address [address] 7[address] [place] [address] Care Team Providers Care Transformer Shop Supervisor Name Role Phone Trinity Sprague FINGERNAIL TECHNICIAN Primary Care Provider [phone] Encounter Details Date Type Department Care Team ([facility] st Contact Info) Description 07/18/2023 Abstract [facility] MEDICINE [address] [place], [place] [phone] Mireya Khalil Social History Tobacco Use Types [...] documented as of this encounter Care Teams Transformer Shop Supervisor Relationship Specialty Start Date End Date Maritza Alfonso FNP [address] [place] [address] [place] [id number] PCP - General Family Medicine 05/24/22 Chetan MEYERS 10/21/24 documented as of this encounter
[2025-04-12 13:27] LABS: Alanine Aminotransferase 20 U/L (0-40); Albumin Level 4.3 g/dL (3.5-5.0); Alkaline Phosphatase 58 U/L (39-117); Anion Gap 15 (12-20); Aspartate Amino Transferase 25 U/L (5-37); Blood Urea Nitrogen 20 mg/dL (9-16); Calcium 9.8 mg/dL (8.4-10.2); Carbon Dioxide 25 mmol/L (22-29); Chloride 101 mmol/L (96-108); Estimated Glomerular Filt Rate > 60; Potassium 4.2 mmol/L (3.3-5.1); Sodium 137 mmol/L (135-145); Total Protein 8.5 g/dL (6.5-8.0)
== END 2025-04-12 11:34 | disposition home or self-care (01) ==
LOC: HO.HVNA 11:33
PROVIDERS: Visit Provider Internal Medicine
DX: E11.621 Type 2 diabetes mellitus with foot ulcer (principal)
CPT/HCPCS: 36415; 80053; 82550; 85025

== ENCOUNTER 2025-04-14 15:23 | Outpatient (REF) | payer MEDICARE, MEDICAID, SELFPAY | END 2025-04-14 15:24 | disposition home or self-care (01) | LOC: HO.HHCLNP 15:23 | PROVIDERS: Visit Provider Emergency Medicine | DX: R82.90 Unspecified abnormal findings in urine (principal) | CPT/HCPCS: 87086 ==

== ENCOUNTER 2025-04-19 13:00 | Outpatient (REF) | payer MEDICARE, MEDICAID, SELFPAY ==
[2025-04-19 15:25] LABS: MANUAL DIFF FLAG NO
[2025-04-19 15:28] LABS: Hematocrit 35.9 % (42.0-52.0); Hemoglobin 12.2 g/dl (14.0-18.0); Imm Gran Abs Auto 0.03 X10*3/uL (0.00-0.03); Imm Gran Pct Auto 0.6 % (0.0-0.4); Lymphocytes Absolute Auto 0.7 X10*3/uL (1.2-4.9); Mean Corpuscular HGB Conc 34.0 g/dl (31.0-36.0); Mean Corpuscular Hemoglobin 28.6 pg (27.0-33.0); Mean Corpuscular Volume 84.3 fL (80.0-98.0); NRBC Abs Auto 0.000 X10*3/uL (0.0-0.012); NRBC Pct Auto 0.0 /100WBC (0.0-0.2); Platelet Count 262 X10*3/uL (160-400); Red Blood Count 4.26 X10*6/uL (4.60-5.80); White Blood Count 5.2 X10*3/uL (4.8-10.8)
--- OUTSIDE RECORDS SUMMARY | 2025-04-19 15:54 | XMS_ITS | Encounter Summary ---
Author Organization [facility] Address [address] [place] [address] Phone Care Team Providers Care Seed Technician Name Role Phone [facility] Primary Care Provider [phone] Encounter Details Date Type Department Care Team (Late Contact Info) Description 10/25/2023 Documentation Only [facility] [address] [place] [address] Diane Morrison [address] [place] [phone] Social History Tobacco Use Types Packs/Day [...] [facility] [address] [place] [address] Mick Badillo MD [address] [place] [address] [place] [address] documented as of this encounter Visit Diagnoses Not on filedocumented in this encounter Care Teams Seed Technician Relationship Specialty Start Date End Date [facility] [address] [place] [address] [phone] PCP - General 06/26/22 documented as of this encounter
== END 2025-04-19 13:01 | disposition home or self-care (01) ==
LOC: HO.HVNA 13:00
PROVIDERS: Visit Provider Internal Medicine
DX: E11.621 Type 2 diabetes mellitus with foot ulcer (principal)
CPT/HCPCS: 36415; 80053; 82550; 85025

== ENCOUNTER 2025-04-22 12:59 | Outpatient (RCR) | payer MEDICARE, MEDICAID, SELFPAY | END 2025-04-22 16:47 | disposition home or self-care (01) | LOC: HO.WCC 12:59 | PROVIDERS: PCP Registered Nurse; Visit Provider Surgery | DX: L03.115 Cellulitis of right lower limb (principal); M86.171 Other acute osteomyelitis, right ankle and foot; E11.40 Type 2 diabetes mellitus with diabetic neuropathy, unspecified; I10 Essential (primary) hypertension; Z09 Encounter for follow-up examination after completed treatment for conditions other than malignant neoplasm; Z79.2 Long term (current) use of antibiotics; Z79.4 Long term (current) use of insulin; Z79.84 Long term (current) use of oral hypoglycemic drugs | CPT/HCPCS: 99212 ==

== ENCOUNTER 2025-04-24 10:38 | Outpatient (REF) | payer MEDICARE, MEDICAID, SELFPAY ==
--- OUTSIDE RECORDS SUMMARY | 2025-04-24 10:43 | XMS_ITS | Encounter Summary ---
Author Organization [employer] Address [address] [place] [address] Care Team Providers Care Licensed Home Inspector Name Role Phone [facility] [place] JAVA SDET Primary Care Provider Encounter Details Date Type Department Care Team ([facility] st Contact Info) Description 07/18/2023 Abstract [facility] MEDICINE [address] [place], [place] [phone] Mireya Khalil Social History Tobacco Use Types [...] Care Team (Late st Contact Info) Description 05/10/2025 1:15 PM EDT Office Visit [facility] MED[facility]INE [address] [place] [address] [facility] [address] [place] [address] 06/22/2025 2:00 PM EDT Office Visit [facility] ADULT DENTAL [address] [place] [address] Yecenia Tilley [address] [place] [address] 07/02/2025 2:00 PM EDT Office Visit [facility] ADULT DENTAL [address] [place] [address] Yecenia Tilley [address] [place] [address] documented as of this encounter Visit Diagnoses Not on filedocumented in this encounter Additional Health Concerns Assessment Noted Time PHQ-9 Depression Total Score: 4 04/03/20 23 10:08 AM EDT documented as of this encounter Care Teams Licensed Home Inspector Relationship Specialty Start Date End Date Maritza Alfonso [facility] [address] [place] [address] PCP - General Family Medicine 05/24/22 [facility] 10/21/24 documented as of this encounter
--- OUTSIDE RECORDS SUMMARY | 2025-04-24 10:43 | XMS_ITS | Encounter Summary ---
Author Organization [facility] Address [address] [place] [address] Phone Care Team Providers Care Air Tube Releaser Name Role Phone [facility] Primary Care Provider [phone] Encounter Details Date Type Department Care Team (Late Contact Info) Description 10/25/2023 Documentation Only [facility] [address] [place] [address] Diane Morrison [address] [place] [phone] Social History Tobacco Use Types Packs/Day [...] [facility] [address] [place] [address] Mick Badillo MD [address] [place] [address] [place] [address] documented as of this encounter Visit Diagnoses Not on filedocumented in this encounter Care Teams Air Tube Releaser Relationship Specialty Start Date End Date [facility] [address] [place] [address] [phone] PCP - General 06/26/22 documented as of this encounter
[2025-04-24 11:57] LABS: Alanine Aminotransferase 18 U/L (0-40); Albumin Level 4.2 g/dL (3.5-5.0); Alkaline Phosphatase 69 U/L (39-117); Anion Gap 13 (12-20); Aspartate Amino Transferase 23 U/L (5-37); Blood Urea Nitrogen 21 mg/dL (9-16); Calcium 10.0 mg/dL (8.4-10.2); Carbon Dioxide 28 mmol/L (22-29); Chloride 99 mmol/L (96-108); Estimated Glomerular Filt Rate > 60; Potassium 4.3 mmol/L (3.3-5.1); Sodium 136 mmol/L (135-145); Total Protein 9.0 g/dL (6.5-8.0)
== END 2025-04-24 10:39 | disposition home or self-care (01) ==
LOC: HO.HVNA 10:38
PROVIDERS: Visit Provider Internal Medicine
DX: B99.9 Unspecified infectious disease (principal)
CPT/HCPCS: 36415; 80053; 82550

== ENCOUNTER 2025-04-26 15:05 | Outpatient (REF) | payer MEDICARE, MEDICAID, SELFPAY ==
[2025-04-26 15:09] LABS: MANUAL DIFF FLAG NO
[2025-04-26 15:13] LABS: Hematocrit 37.6 % (42.0-52.0); Hemoglobin 12.3 g/dl (14.0-18.0); Imm Gran Abs Auto 0.01 X10*3/uL (0.00-0.03); Imm Gran Pct Auto 0.2 % (0.0-0.4); Lymphocytes Absolute Auto 0.7 X10*3/uL (1.2-4.9); Mean Corpuscular HGB Conc 32.7 g/dl (31.0-36.0); Mean Corpuscular Hemoglobin 27.4 pg (27.0-33.0); Mean Corpuscular Volume 83.7 fL (80.0-98.0); NRBC Abs Auto 0.000 X10*3/uL (0.0-0.012); NRBC Pct Auto 0.0 /100WBC (0.0-0.2); Platelet Count 212 X10*3/uL (160-400); Red Blood Count 4.49 X10*6/uL (4.60-5.80); White Blood Count 4.9 X10*3/uL (4.8-10.8)
[2025-04-26 15:39] LABS: Alanine Aminotransferase 16 U/L (0-40); Albumin Level 4.0 g/dL (3.5-5.0); Alkaline Phosphatase 64 U/L (39-117); Anion Gap 13 (12-20); Aspartate Amino Transferase 23 U/L (5-37); Blood Urea Nitrogen 23 mg/dL (9-16); Calcium 9.8 mg/dL (8.4-10.2); Carbon Dioxide 29 mmol/L (22-29); Chloride 98 mmol/L (96-108); Estimated Glomerular Filt Rate > 60; Potassium 4.6 mmol/L (3.3-5.1); Sodium 135 mmol/L (135-145); Total Protein 8.4 g/dL (6.5-8.0)
--- OUTSIDE RECORDS SUMMARY | 2025-04-26 16:46 | XMS_ITS | Encounter Summary ---
Author Organization [facility] [place], Address [address] [place] [address] Phone Care Team Providers Care Multicultural Manager Name Role Phone [facility] Primary Care Provider [phone] Encounter Details Date Type Department Care Team (Late Contact Info) Description 02/22/2023 Documentation Only [facility] [address] [place] [address] Hank Cho PA [address] [place] [address] [place] [address] Social History Tobacco Use Types Packs/Day Years [...] Visit [facility] [address] [place] [address] Mick Badillo MD [address] [place] [address] [place] [address] documented as of this encounter Visit Diagnoses Not on filedocumented in this encounter Care Teams Multicultural Manager Relationship Specialty Start Date End Date [facility] [address] [place] [id number] PCP - General 06/26/22 documented as of this encounter
--- OUTSIDE RECORDS SUMMARY | 2025-04-26 16:46 | XMS_ITS | Encounter Summary ---
Author Organization [facility] Address [address] [place] [address] Phone Care Team Providers Care Experience Specialist Name Role Phone [facility] Primary Care Provider [phone] Encounter Details Date Type Department Care Team (Late Contact Info) Description 10/25/2023 Documentation Only [facility] [address] [place] [address] Diane Morrison [address] [place] [phone] Social History Tobacco Use Types Packs/Day [...] [facility] [address] [place] [address] Mick Badillo MD [address] [place] [address] [place] [address] documented as of this encounter Visit Diagnoses Not on filedocumented in this encounter Care Teams Experience Specialist Relationship Specialty Start Date End Date [facility] [address] [place] [address] [phone] PCP - General 06/26/22 documented as of this encounter
--- OUTSIDE RECORDS SUMMARY | 2025-04-26 16:46 | XMS_ITS | Encounter Summary ---
Author Organization [facility] [place], Address [address] [place] [address] Phone Care Team Providers Care Home Manager Name Role Phone [facility] Primary Care Provider [phone] Encounter Details Date Type Department Care Team (Late Contact Info) Description 09/02/2023 Orders Only [facility] [address] [place] [address] Hank Cho PA [address] [place] [address] [place] [address] Chronic kidney disease, stage 2 (mild); Essential [...] Care Team (Late st Contact Info) Description 07/13/2025 9:30 AM EST Office Visit [facility] [address] [place] [address] Mick Badillo MD [address] [place] [address] [place] [address] documented as of this encounter Visit Diagnoses Diagnosis Chronic kidney disease, stage 2 (mild) Essential (primary) hypertension Type 2 diabetes mellitus, not otherwise specified (HCC) documented in this encounter Care Teams Home Manager Relationship Specialty Start Date End Date [facility] [address] [place] [id number] PCP - General 06/26/22 documented as of this encounter
--- OUTSIDE RECORDS SUMMARY | 2025-04-26 16:46 | XMS_ITS | Encounter Summary ---
Author Organization [facility] [place], Address [address] [place] [address] Phone Care Team Providers Care Dye House Hand Name Role Phone [facility] Primary Care Provider Encounter Details Date Type Department Care Team (Late Contact Info) Description 06/22/2022 Documentation Only [facility] [address] [place] [address] Hank Cho PA [address] [place] [address] [place] [address] Social History Tobacco Use Types [...] Visit [facility] [address] [place] [address] Mick Badillo MD [address] [place] [address] [place] [address] documented as of this encounter Visit Diagnoses Not on filedocumented in this encounter Care Teams Dye House Hand Relationship Specialty Start Date End Date [facility] [address] [place] [id number] PCP - General 06/26/22 documented as of this encounter
--- OUTSIDE RECORDS SUMMARY | 2025-04-26 16:46 | XMS_ITS | Encounter Summary ---
Author Organization [facility] Address [address] [place] [address] Phone Care Team Providers Care Production Manager Name Role Phone [facility] Primary Care Provider [phone] Encounter Details Date Type Department Care Team (Late Contact Info) Description 07/07/2024 Documentation Only [facility] [address] [place] [address] Diane Morrison [address] [place] [phone] Social History Tobacco Use Types Packs/Day [...] [facility] [address] [place] [address] Mick Badillo MD [address] [place] [address] [place] [address] documented as of this encounter Visit Diagnoses Not on filedocumented in this encounter Care Teams Production Manager Relationship Specialty Start Date End Date [facility] [address] [place] [address] [phone] PCP - General 06/26/22 documented as of this encounter
--- OUTSIDE RECORDS SUMMARY | 2025-04-26 16:46 | XMS_ITS | Encounter Summary ---
Author Organization [facility] [place], Address [address] [place] [address] Phone Care Team Providers Care Pan Cleaner Name Role Phone [facility] Primary Care Provider Encounter Details Date Type Department Care Team (Late Contact Info) Description 02/26/2023 Documentation Only [facility] [address] [place] [address] Hank Cho PA [address] [place] [address] [place] [address] Social History Tobacco Use Types [...] Visit [facility] [address] [place] [address] Mick Badillo MD [address] [place] [address] [place] [address] documented as of this encounter Visit Diagnoses Not on filedocumented in this encounter Care Teams Pan Cleaner Relationship Specialty Start Date End Date [facility] [address] [place] [id number] PCP - General 06/26/22 documented as of this encounter
--- OUTSIDE RECORDS SUMMARY | 2025-04-26 16:46 | XMS_ITS | Encounter Summary ---
Author Organization [facility] [place], Address [address] [place] [address] Phone Care Team Providers Care Speech Language Pathologist Name Role Phone [facility] Primary Care Provider [phone] Encounter Details Date Type Department Care Team (Late Contact Info) Description 02/25/2023 Documentation Only [facility] [address] [place] [address] Hank Cho PA [address] [place] [address] [place] [address] Social History Tobacco Use Types [...] Visit [facility] [address] [place] [address] Mick Badilol MD [address] [place] [address] [place] [address] documented as of this encounter Visit Diagnoses Not on filedocumented in this encounter Care Teams Speech Language Pathologist Relationship Specialty Start Date End Date [facility] [address] [place] [address] PCP - General 06/26/22 documented as of this encounter
--- OUTSIDE RECORDS SUMMARY | 2025-04-26 16:46 | XMS_ITS | Encounter Summary ---
Author Organization [facility] [place], Address [address] [place] [address] Phone Care Team Providers Care Upper And Bottom Lacer Hand Name Role Phone [facility] Primary Care Provider [phone] Encounter Details Date Type Department Care Team (Late Contact Info) Description 06/29/2024 Orders Only [facility] [address] [place] [address] Hank Cho PA [address] [place] [address] [place] [address] Chronic kidney disease, stage 2 (mild); Type [...] [facility] [address] [place] [address] Mick Badillo MD [address] [place] [address] [place] [address] documented as of this encounter Visit Diagnoses Diagnosis Chronic kidney disease, stage 2 (mild) Type 2 diabetes mellitus, not otherwise specified (HCC) Essential (primary) hypertension Microalbuminuria documented in this encounter Care Teams Upper And Bottom Lacer Hand Relationship Specialty Start Date End Date Maritza Alfonso [address] [place] [address] PCP - General 06/26/22 documented as of this encounter
--- OUTSIDE RECORDS SUMMARY | 2025-04-26 16:46 | XMS_ITS | Encounter Summary ---
Author Organization [facility] [place], Address [address] [place] [address] Phone Care Team Providers Care Temperature Inspector Name Role Phone [facility] Primary Care Provider [phone] Encounter Details Date Type Department Care Team (Late Contact Info) Description 06/01/2022 Documentation Only [facility] [address] [place] [address] Hank Cho PA [address] [place] [address] [place] [address] Social History Tobacco Use Types [...] Services Of [facility] [address] [place] [address] Mick Badillo MD [address] [place] [address] [place] [address] documented as of this encounter Visit Diagnoses Not on filedocumented in this encounter Care Teams Temperature Inspector Relationship Specialty Start Date End Date [facility] [address] [place] [address] PCP - General 06/26/22 documented as of this encounter
--- OUTSIDE RECORDS SUMMARY | 2025-04-26 16:46 | XMS_ITS | Encounter Summary ---
Author Organization [facility] [place], Address [address] [place] [address] Phone Care Team Providers Care Blower And Compressor Assembler Name Role Phone [facility] Primary Care Provider [phone] Encounter Details Date Type Department Care Team (Late Contact Info) Description 05/28/2022 Documentation Only [facility] [address] [place] [address] Hank Cho PA [address] [place] [address] [place] [address] Social History Tobacco Use Types [...] Visit [facility] [address] [address] Mick Badillo MD [address] [place] [address] [place] [address] documented as of this encounter Visit Diagnoses Not on filedocumented in this encounter Care Teams Blower And Compressor Assembler Relationship Specialty Start Date End Date [facility] [address] [place] [address] PCP - General 06/26/22 documented as of this encounter
--- OUTSIDE RECORDS SUMMARY | 2025-04-26 16:46 | XMS_ITS | Encounter Summary ---
Author Organization [employer] Address [address] [place] [address] Care Team Providers Care Hide Or Skin Buffer Name Role Phone [facility] Primary Care Provider [phone] Encounter Details Date Type Department Care Team ([facility] st Contact Info) Description 07/29/2023 Orders Only [facility] [address] [place], [place] [phone] [facility] [address] [place] [address] Neoplasm of uncertain behavior (Primary Dx) Social [...] Description 05/10/2025 1:15 PM EDT Office Visit [facility] [address] [place] [address] Maritza Alfonso [facility] [address] [place] [address] 06/22/2025 2:00 PM EDT Office Visit [facility] ADULT DENTAL [address] [place] [address] Jarek Yecenia [address] [place] [address] 07/02/2025 2:00 PM EDT Office Visit [facility] ADULT DENTAL [address] [place] [address] Jarek, Yecenia [address] [place] [address] documented as of this encounter Visit Diagnoses Diagnosis 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
--- OUTSIDE RECORDS SUMMARY | 2025-04-26 16:46 | XMS_ITS | Encounter Summary ---
Author Organization [facility] Address [address] [place] [address] Phone Care Team Providers Care Examination Grader Name Role Phone [facility] Primary Care Provider [phone] Encounter Details Date Type Department Care Team (Late Contact Info) Description 05/31/2022 Documentation Only [facility] [address] [place] [address] Alexander Zhou MD [address] [place] [address] Social History Tobacco Use Types [...] Visit [facility] [address] [place] [address] Mick Badillo MD [address] [place] [address] documented as of this encounter Visit Diagnoses Not on filedocumented in this encounter Care Teams Examination Grader Relationship Specialty Start Date End Date [facility] [address] [place] [address] PCP - General 06/26/22 documented as of this encounter
--- OUTSIDE RECORDS SUMMARY | 2025-04-26 16:46 | XMS_ITS | Encounter Summary ---
Author Organization [employer] Address [address] [facility] [facility] [address] [place] [address] Care Team Providers Care Vial Gauger Name Role Phone [facility] Primary Care Provider [phone] Encounter Details Date Type Department Care Team ([facility] st Contact Info) Description 07/18/2023 Abstract [facility] MEDICINE [address] [place], [place] [phone] Mireya Khalil Social History Tobacco Use Types [...] Description 05/10/2025 1:15 PM EDT Office Visit [facility] MEDICINE [address] [place] [address] [facility] [address] [place] [address] 06/22/2025 2:00 PM EDT Office Visit [facility] ADULT DENTAL [address] [place] [address] Yecenia Tilley [address] [place] [address] 07/02/2025 2:00 PM EDT Office Visit [facility] ADULT DENTAL [address] [place] [address] Yecenia Tilley [address] [place] [address] documented as of this encounter Visit Diagnoses Not on filedocumented in this encounter Additional Health Concerns Assessment Noted Time PHQ-9 Depression Total Score: 4 04/03/20 23 10:08 AM EDT documented as of this encounter Care Teams Vial Gauger Relationship Specialty Start Date End Date Maritza Alfonso [facility] [address] [place] [address] PCP - General Family Medicine 05/24/22 [facility] 10/21/24 documented as of this encounter
--- OUTSIDE RECORDS SUMMARY | 2025-04-26 16:46 | XMS_ITS | Encounter Summary ---
Author Organization [facility] Address [address] [place] [address] Phone Care Team Providers Care Slat Basket Maker Name Role Phone [facility] Primary Care Provider [phone] Encounter Details Date Type Department Care Team (Late Contact Info) Description 10/25/2023 Documentation Only [facility] [address] [place] [address] Diane Morrison [address] [place] [phone] Social History Tobacco Use Types Packs/Day [...] [facility] [address] [place] [address] Mick Badillo MD [address] [place] [address] [place] [address] documented as of this encounter Visit Diagnoses Not on filedocumented in this encounter Care Teams Slat Basket Maker Relationship Specialty Start Date End Date [facility] [address] [place] [address] [phone] PCP - General 06/26/22 documented as of this encounter
--- OUTSIDE RECORDS SUMMARY | 2025-04-26 16:46 | XMS_ITS | Encounter Summary ---
Author Organization [facility] [place], Address [address] [place] [address] Phone Care Team Providers Care Auto Headlight Mechanic Name Role Phone [facility] Primary Care Provider [phone] Encounter Details Date Type Department Care Team (Late Contact Info) Description 05/31/2022 Documentation Only [facility] [address] [place] [address] Hank Cho PA [address] [place] [address] [place] [address] Social History Tobacco Use Types [...] And Transplant Services [facility] [address] [place] [address] Mick Badillo MD [address] [place] [address] [place] [address] documented as of this encounter Visit Diagnoses Not on filedocumented in this encounter Care Teams Auto Headlight Mechanic Relationship Specialty Start Date End Date [facility] [address] [place] [address] PCP - General 06/26/22 documented as of this encounter
--- OUTSIDE RECORDS SUMMARY | 2025-04-26 16:47 | XMS_ITS | Encounter Summary ---
Author Organization [employer] Address [address] [facility] 7t [place] [address] Care Team Providers Care Wood Ski Maker Name Role Phone [facility] Primary Care Provider [phone] Reason for Visit * Reason Onset Date Comments Referral 07/03/2024 Encounter Details Date Type Department Care Team ([facility] Contact Info) Description 07/03/2024 Telephone [facility] MEDICINE [address] [place], [place] [phone] [facility] [address] [place] [address] Referral Social History Tobacco Use Types Packs/Day [...] Description 05/10/2025 1:15 PM EDT Office Visit [facility] MEDICINE [address] [place] [address] [place] Maritza, [facility] 230 [place] [address] 06/22/2025 2:00 PM EDT Office Visit [facility] ADULT DENTAL [address] [place] [address] Yecenia Tilley [address] [place] [address] 07/02/2025 2:00 PM EDT Office Visit [facility] ADULT DENTAL [address] [place] [address] Yecenia Tilley [address] [place] [address] documented as of this encounter Visit Diagnoses Not on filedocumented in this encounter Additional Health Concerns Assessment Noted Time PHQ-9 Depression Total Score: 0 01/15/20 24 9:49 AM EDT documented as of this encounter Care Teams Wood Ski Maker Relationship Specialty Start Date End Date Maritza Alfonso FNP [address] [place] [address] PCP - General Family Medicine 05/24/22 Chetan Lucinda 10/21/24 documented as of this encounter
--- OUTSIDE RECORDS SUMMARY | 2025-04-26 16:47 | XMS_ITS | Clinical Summary ---
Author Organization [facility] [place], Address [address] [place] [address] [place] [address] Phone Care Team Providers Care Scalder Name Role Phone [facility] Primary Care Provider [phone] Allergies Active Allergy Reactions Criticality Noted Date [...] Encounters Date Type Department Care Team Description 04/26/2025 Documentation Only [facility] [address] [place] [address] Radha Valentin MA 03/24/2025 10:10 AM EDT Office Visit [facility] [address] [place] [address] Mick Badillo MD Renal disorder due to type 2 diabetes mellitus <Diabetic nephropathy> (HCC) (Primary Dx) from Last 3 Months Immunizations Immunization Administration Dates Next Due Influenza [...] Visit [facility] [address] [place] [address] Mick Badillo MD [address] [address] [place] [address] Health Maintenance Due Date Last Done Comments Colorectal Cancer Screening: Annual FOBT 2009 Colorectal Cancer Screening: Colonoscopy 2009 Colorectal Cancer Screening: Sigmoidoscopy 2009 Pneumococcal Vaccine: 50+ Years (3 of 3 - PCV) 06/19/2015 06/19/2014, 05/15/2012 Diabetes: Ophthalmology Exam 11/23/2019 Diabetes: Pedal Pulse Checked 11/23/2019 Diabetes: Sensory Foot Exam 11/23/2019 Diabetes: Visual Foot Exam 11/23/2019 Diabetes: Hemoglobin A1C 03/26/2025 025, 05/20/2024, 10/16/2023, Additional history exists Influenza Vaccine (#1) 2025 3, 07/22/2021, 06/18/2020, Additional history exists Pneumococcal Vaccine: Peds (0 to 5 Years) and At-Risk Patients (6 to 49 Years) Discontinued 06/19/2014, 05/15/2012 Hepatitis B Vaccine Aged Out No longe r eligible based on patient's age to complete this topic Procedures Procedure Name Priority Date/Time Associated Diagnosis Comments LAB HORSERADISH MAKER Routine 01/29/2018 12:00 AM EDT from Last 3 Months or Most Recently Relevant to Health Maintenance Results * Lab Centrifugal Screen Tender (01/29/2018 12:00 AM EDT) Hemoglobin A1C 7.8 % KCTMA 01/29/2018 [facility] Conversion LAB [id number] LICITED RESULTS Final Result KCA from Last 3 Months or Most Recently Relevant to Health Maintenance Insurance [place] [facility] [place] [id number] Care Teams Scalder Relationship Specialty Start Date End Date [facility] [address] [place] [address] [place] [address] PCP - General 06/26/22
--- OUTSIDE RECORDS SUMMARY | 2025-04-26 16:47 | XMS_ITS | Encounter Summary ---
Author Organization [facility] Address [address] [place] [address] Phone Care Team Providers Care Internet Marketing Executive Name Role Phone [facility] Primary Care Provider [phone] Reason for Visit * Reason Onset Date Comments PT 1 transportation 04/26/2025 Encounter Details Date Type Department Care Team (Late Contact Info) Description 04/26/2025 Documentation Only [facility] [place], [address] [place] [address] Radha Valentin MA [address] [place] [address] Social History Tobacco Use Types [...] on file documented as of this encounter Progress Notes * Radha Valentin MA - 04/26/2025 11:19 AM EDT PT 1 renewed for rides to [address] [place] [address] Badillo, 12 months for 2 visits a month with tracking number [id number] 04/26/25-04/26/26 documented in this encounter Plan of Treatment Upcoming Encounters Date Type Department Care Team (Late Contact Info) Description 07/13/2025 9:30 AM EST Office Visit [facility] [place], [address] [place] [address] Mick Badillo MD [address] [place] [address] documented as of this encounter Visit Diagnoses Not on filedocumented in this encounter Care Teams Internet Marketing Executive Relationship Specialty Start Date End Date [facility] [address] [place] [address] PCP - General 06/26/22 documented as of this encounter
--- OUTSIDE RECORDS SUMMARY | 2025-04-26 16:47 | XMS_ITS | Clinical Summary ---
Author Organization [employer] Address [address] [facility] [address] [place] [address] Care Team Providers Care Abnormal Psychology Teacher Name Role Phone [facility] Primary Care Provider [phone] Allergies Active Allergy Reactions Criticality Noted Date [...] mouth 1 (one) time each day. Active TRUEplus Lancets 33G miscIndications :Type 2 diabetes mellitus with hyperglycemia, with long-term current use of insulin ([facility]) TEST BLOOD SUGAR 4 TIMES A DAY 100 each 11 04/09/20 23 Active metFORMIN XR (Glucophage-XR) 500 MG 24 hr tabletIndicatio ns:Type 2 diabetes mellitus with hypoglycemia without coma, without long-term current use of insulin ([facility]) Take 1 tablet (500 mg) by mouth 2 times daily. 360 tablet 1 05/20/20 24 Active metoprolol succinate XL (Toprol-XL) 50 MG 24 hr tablet TAKE 1 TABLET BY MOUTH EVERY MORNING 90 tablet 1 09/29/19 25 Active Additional Information Patient not taking.Reason: Side effects (Pt states it causes stomach pain.), Reported on 03/29/2025 Aspirin Low Dose 81 MG EC tablet TAKE 1 TABLET BY MOUTH EVERY MORNING 90 tablet 09/29/19 25 Active D3 Super Strength 50 MCG (1999 UT) capsule TAKE 1 CAPSULE BY MOUTH EVERY MORNING 90 capsule 1 09/29/19 Active empagliflozin (Jardiance) 25 MGIndications:T ype 2 diabetes mellitus with hyperglycemia, without long-term current use of insulin ([facility]) Take 1 tablet (25 mg) by mouth Once per day. 30 tablet 10/07/192025 Active Alcohol Swabs (Alcohol Prep) padsIndications :Type 2 diabetes mellitus with hyperglycemia, without long-term current use of insulin ([facility]) Use one pad each to prep skin prior to injection as directed 100 each 10/26/19 Active ondansetron (Zofran) 4 MG tabletIndicatio ns:Nausea Take 1 tablet (4 mg) by mouth every 8 (eight) hours if needed for nausea or vomiting. 30 tablet 2 10/26/19 Active glucose blood (FREESTYLE LITE) test stripIndication s:Type 2 diabetes mellitus with hyperglycemia, with long-term current use of insulin ([facility]) TEST BLOOD SUGAR ONCE DAILY 100 strip 10/30/19 Active Blood Glucose Monitoring Suppl (GNP Easy Touch Glucose Meter) deviceIndicatio ns:Type 2 diabetes mellitus with hyperglycemia, without long-term current use of insulin ([facility]) USE TO TEST BLOOD SUGAR ONCE A DAY 1 each 11/03/19 Active chlorhexidine (Peridex) 0.12 % solution Swish 15 mL morning and night for 1 minute. Spit, do not swallow. Do not eat or drink for 30 minutes following use. 473 mL 12/25/19 Active Dulaglutide (Trulicity) 4.5 MG/0.5ML solution auto-injectorIn dications:Type 2 diabetes mellitus with hyperglycemia, without long-term current use of insulin ([facility]) Inject 4.5 mg under the skin 1 (one) time per week. 2 mL 3 12/26/19 Active cefepime (Maxipime) 2 g injection Infuse 2 g into a venous catheter every 8 (eight) hours. 04/07/20 25 2024 Active DAPTOmycin (Cubicin) 500 MG injection Infuse 450 mg into a venous catheter Once per day. 04/07/20 25 2024 Active hydroCHLOROthia zide (HYDRODiuril) 25 MG tablet Take 12.5 mg by mouth Once per day. 04/07/20 Active isosorbide mononitrate ER (Imdur) 30 MG 24 hr tablet Take 1 tablet by mouth Once per day. 12/01/19 Active Blood Glucose Monitoring Suppl (True Metrix Meter) w/Device kitIndications: Type 2 diabetes mellitus with hyperglycemia, with long-term current use of insulin ([facility]) 1 kit before breakfast, before lunch, before evening meal, and at bedtime. 1 kit 09/20/192024 Discontinued(M ed list cleanup (will not trigger notification to Pharmacy)) Lancets 33G miscIndications :Type 2 diabetes mellitus with hyperglycemia, without long-term current use of insulin ([facility]) Use as directed to check blood sugar once daily 100 each 3 10/30/19 25 2024 Discontinued(M ed list cleanup (will not trigger notification to Pharmacy)) Glucose Blood (Blood Glucose Test) stripIndication s:Type 2 diabetes mellitus with hyperglycemia, without long-term current use of insulin ([facility]) USE TO TEST BLOOD SUGAR ONCE A DAY 50 strip 11 11/03/19 25 2024 Discontinued(M ed list cleanup (will not trigger notification to Pharmacy)) Active Problems Problem Noted Date Diagnosed Date Dental calculus 03/29/2025 Periodontal disease 03/29/2025 Missing teeth, acquired 03/29/2025 Extruded tooth 03/29/2025 Stage 3 grade B generalized periodontitis per AAP/EFP 2017 classification 03/29/2025 Pain, dental 12/24/2024 Localized swelling of left foot 08/13/2024 Assessment & Plan (08/13/2024 11:39 AM EST): Localized swelling over top of left foot with slight warmth. See image in chart 08/13/24. -ordered XR left foot 08/13/24 -start Augmentin 875-125 mg BID, for 2 weeks. -referred to Podiatry 08/13/24 -will f/u in same day care on 08/17/2024 Healthcare maintenance 04/03/2023 Overview (04/03/2023): C-Scope: Declines PSA: 04/2023 Vision Exam: Referred to [facility] 04/2023 Immunizations:Declines PCV 20 04/2023 Assessment & Plan (04/13/2023 12:48 PM EDT): Pt previously accepted cologuard for CRC screening. Today reports he no longer wants to complete screening. Reviewed risks of forgoing screening including delay in diagnosis and/or treatment of potential malignancy which may adversely impact quality of life and reduce life expectancy. Pt verbalizes understanding. Coronary arteriosclerosis 08/13/2022 Overview (04/03/2023): Folllowed by [facility] cardiology Dr. Morales 01/2023 Negative Echo. Negative stress test Leukopenia 03/26/2022 Overview (04/03/2023): Followed by hematology/oncology at [facility]. Last seen apporx 6 months ago. Reports was told he no longer needed follow up. Records not in chart. Assessment & Plan (04/13/2023 12:37 PM EDT): Will check CBC for baseline Will request heme/onc last notes Chronic kidney disease, stage 2 (mild) 0 Overview (04/03/2023): Followed by nephrology Type 2 diabetes mellitus 07/19/2016 Overview (05/25/2024): Jardiance 10mg Metformin 500mgb.I.d Trulicity 1.5 Previously on insulin-discontinued due to well controlled blood sugar Foot Exam: Total loss of protective sensation, hx of R toe amputation Eye Exam: Referred back to [facility] optometry 04/2023 Statin: Yes ASA: Yes YASHIRA/ARB: [...] Component Value Date HGBA1C 8.1 (A) 04/03/2023 INCREASE januvia to 100mg daily Continue current regimen Complete previously ordered labs. Will re order to [facility] lab today Essential (primary) hypertension 08/12/2012 Overview (09/23/2023): Metoprolol Lasix Followed by cardiology Maintenance: BMP: Pending Lipid [...] Assessment & Plan (04/13/2023 12:36 PM EDT): Well controlled Continue current regimen Follow up with cardiology as scheduled Hypertriglyceridemia 05/15/2012 Overview (09/23/2023): Atorvastatin 80mg Zetia 10mg Microalbuminuria 05/15/2012 Moderate nonproliferative diabetic retinopathy 0 02/05/2012 Diabetic polyneuropathy 01/15/2012 Impotence of organic origin 01/15/2012 Resolved Problems Problem Noted Date Diagnosed Date Resolved Date Diabetic ulcer of left foot associated with type 2 diabetes mellitus, limited to breakdown of skin 09/23/2023 01/21/2025 Assessment & Plan (01/19/2025 1:24 PM EDT): History of osteomyelitis of left foot-had outpatient follow-up with ID Dr. Bryant 11/11/2024. Completed IV daptomycin 11/13, completed outpatient doxycycline for 1 month. Completed treatment with [facility] wound care with resolution of wound now with returning of wound. He does not have diabetic shoes. Concern for early cellulitis given warmth and swelling of foot -rx doxycycline bid x 10 days started 01/19/25 -wound cleaned and dressed -referral to wound clinic -referral to podiatry -follow up with me in 48 hours. ER precautions discussed. Assessment & Plan (09/23/2023 2:55 PM EST): [...] heals completely, encouraged tight control of DM. 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 08/13/2022 04/03/2023 Diabetic nephropathy associa gina with type 2 diabetes mellitus 05/02/2020 04/03/2023 Diabetic foot ulcer 05/15/2012 04/03/20 23 Encounters Date Type Department Care Team Description 04/16/2025 Results Follow-Up [facility] [address] [place] [phone] Royer Doyle MD POCT urinalysis dipstick manually resulted, Culture, Urine, Routine 04/16/2025 Telephone [facility] [address] [place] [phone] CombesMaritza FNP FYI 04/14/2025 3:00 PM EDT Office Visit [facility] [address] [address] Royer Doyle MD Abnormal urine odor (Primary Dx); Osteomyelitis of left foot, unspecified type (CMS/HCC); UTI symptoms; Essential (primary) hypertension 04/14/2025 Orders Only [facility] [address] [place] [phone] KadenMaritza moore FNP Type 2 diabetes mellitus with hypoglycemia without coma, without long-term current use of insulin (CMS/HCC) (Primary Dx); Osteomyelitis of left foot, unspecified type (CMS/HCC) 04/14/2025 Telephone [facility] [address] [place] [phone] Maritza Alfonso FNP 04/13/2025 Telephone [facility] [address] [place] [address] Maritza Alfonso FNP verbal orders; Call Back Request 04/08/2025 Telephone [facility] [address] [place] [address] Maritza Alfonso [facility] Nurse Triage 04/08/[address] [place] [address] Maritza Alfonso FNP HDF appointment 04/08/2025 Patient Outreach [address] [address] Maritza Alfonso FNP Transition Of Care (Tcm) (HDF unscheduled) 03/29/2025 11:00 AM EDT Office Visit [facility] [address] [place] [address] Yecenia Tilley Dental calculus (Primary Dx); Periodontal disease; Missing teeth, acquired; Extruded tooth; Stage 3 grade B generalized periodontitis per AAP/EFP 2017 classification 02/26/2025 Orders Only [address] [place] [address] Maritza Alfonso FNP 02/01/[address] [place] [address] CombesMaritza [facility] No Show 01/29/[address] [address] KadenMaritza moore [facility] chart prep from Last 3 Months Immunizations Immunization Administration Dates Next Due Influenza Injectable Quadriv [...] Sign Reading Time Taken Comments Blood Pressure 139/82 04/14/2025 2:40 PM EDT Pulse 75 04/14/2025 2:40 PM EDT Temperature 36.6 C (97.8 F) 04/14/2025 2:40 PM EDT Respiratory Rate 17 04/14/2025 2:40 PM EDT Oxygen Saturation 97% 04/14/2025 2:40 PM EDT Inhaled Oxygen Concentration - - Weight 71.6 kg (157 lb 12.8 oz) 04/14/2025 2:40 PM EDT Height 182.9 cm (6') 01/21/2025 1:06 PM EDT Body Mass Index 21.4 01/21/2025 1:06 PM EDT Plan of Treatment Upcoming Encounters Date Type Department Care Team (Late st Contact Info) Description 05/10/2025 1:15 PM EDT Office Visit [facility] [address] [place] [address] [facility], [facility] [address] [place] [address] 06/22/2025 2:00 PM EDT Office Visit [facility] [address] [place] [address] Jarek, Yecenia [address] [place] [address] 07/02/2025 2:00 PM EDT Office Visit [facility] [address] [place] [address] Jarek, Yecenia [address] [place] [address] Health Maintenance Due Date Last Done Comments CT Colonography 1960 FIT DNA/Cologuard 1960 FIT 1960 FOBT 1960 Sigmoidoscopy 1960 Disability Screening 1960 Alcohol/Substance Use Screening 1972 Pneumococcal Vaccine: 50+ Years (2 of 2 - PCV) 06/19/2015 06/19/2014, 05/15/2012 RSV Patients and Patients Aged 60 years or older (1 - Risk 60-74 years 1-dose series) 2020 Colonoscopy 12/29/2023 12/28/2013 Colorectal Cancer Screening 12/29/2023 COVID-19 Vaccine (3 - season) 2024 02/13/2021, 01/16/2021 Diabetes: Foot Exam 01/14/2025 01/15/2024, 01/15/2024, 01/15/2024, Additional history exists Diabetes: Hemoglobin A1C 03/26/2025 025, 10/07/2024, 05/20/2024, Additional history exists Influenza Vaccine (#1) 2025 , 07/29/2023, 07/22/2021, Additional history exists Eye Exam 07/08/2025 07/08/2024 Dental Oral Exam 09/30/2025 03/29/2025 Dental Prophylaxis 09/30/2025 03/29/2025 Diabetes: Urine Protein Screening 10/08/2025 10/08/2024, 04/17/2023, 11/21/2021, Additional history exists Lipid Panel 10/08/2025 10/08/2024, 02/01, 02/21/2023, Additional history exists SDOH Screening 10/12/2025 10/12/2024 Depression Screening 12/25/2025 12/25/2024, 12/26/19 Dental X-Ray: Bitewings 03/30/2026 03/29/2025 Tobacco Screening 04/14/2026 04/14/2025 Dental X-Ray: Full Mouth 12/26/2027 12/24/2024 DTaP/Tdap/Td Vaccines (3 - Td or Tdap) 04/25/2030 04/25/2020, 11/23/2013 Meningococcal Vaccine Aged Out 06/09/2014 No terrell warren eligible based on patient's age to complete this topic Zoster Vaccines Completed 07/21/2020, 07/03, 05/19/2020, Additional history exists HIV Screening Completed 05/24/2022 Hepatitis C Screening Completed 05/24/2022 HIB Vaccines Aged Out No longer eligi [...] patient's age to complete this topic Meningococcal B Vaccine Aged Out No l onger eligible based on patient's age to complete this topic RSV under 20 months Aged Out No longe r eligible based on patient's age to complete this topic Rotavirus Vaccines Aged Out No longer eligible based on patient's age to complete this topic Procedures Procedure Name Priority Date/Time Associated Diagnosis Comments CULTURE, URINE, ROUTINE Routine 04/14/2025 3:23 PM EDT Abnormal urine odor POCT URINALYSIS DIPSTICK Routine 04/14/2025 2:46 PM EDT UTI symptoms PERIODIC ORAL EVALUATION - ESTABLISHED PATIENT Routine 03/29/2025 11:00 AM EDT CASE PRESENTATION, DETAILED AND EXTENSIVE TREATMENT PLANNING Routine 03/29/2025 11:00 AM EDT Dental calculus Periodontal disease Missing teeth, acquired ORAL HYGIENE INSTRUCTIONS Routine 03/29/2025 11:00 AM EDT Dental calculus Periodontal disease Missing teeth, acquired PROPHYLAXIS - ADULT Routine 03/29/2025 1 1:00 AM EDT Dental calculus Periodontal disease INTRAORAL - PERIAPICAL EACH ADDITIONAL RADIOGRAPHIC IMAGE Routine 03/29/2025 11:00 AM EDT Dental calculus Periodontal disease Missing teeth, acquired INTRAORAL - PERIAPICAL FIRST RADIOGRAPHIC IMAGE Routine 03/29/2025 11:00 AM EDT Dental calculus Periodontal disease Missing teeth, acquired BITEWINGS - 4 RADIOGRAPHIC IMAGES Routine 03/29/2025 11:00 AM EDT Dental calculus Periodontal disease Missing teeth, acquired 29 DO COMPOSITE FILLING Routine 03/29/2025 12:00 AM EDT 13 O AMALGAM FILLING Routine 03/29/2025 12:00 AM EDT 15 O AMALGAM FILLING Routine 03/29/2025 12:00 AM EDT 16 O AMALGAM FILLING Routine 03/29/2025 12:00 AM EDT 14 LO AMALGAM FILLING Routine 03/29/2025 12:00 AM EDT 5 MOD AMALGAM FILLING Routine 03/29/2025 12:00 AM EDT 3 O AMALGAM FILLING Routine 03/29/2025 1 2:00 AM EDT 2 O AMALGAM FILLING Routine 03/29/2025 1 2:00 AM EDT 1 O AMALGAM FILLING Routine 03/29/2025 1 2:00 AM EDT 17 O AMALGAM FILLING Routine 03/29/2025 12:00 AM EDT 28 O AMALGAM FILLING Routine 03/29/2025 12:00 AM EDT 32 O AMALGAM FILLING Routine 03/29/2025 12:00 AM EDT 31 O AMALGAM FILLING Routine 03/29/2025 12:00 AM EDT 18 EXTRACTION Routine 03/29/2025 12:00 AM EDT 19 EXTRACTION Routine 03/29/2025 12:00 AM EDT 30 EXTRACTION Routine 03/29/2025 12:00 AM EDT XR FOOT 3+ VIEWS LEFT Routine 02/27/2025 8:13 PM EDT POCT GLYCATED HEMOGLOBIN, TOTAL Routine 12/25/2024 1:06 PM EDT Type 2 diabetes mellitus with hyperglycemia, without long-term current use of insulin (CMS/HCC) PANORAMIC RADIOGRAPHIC IMAGE Routine 12/24/2024 11:30 AM EDT ALBUMIN, RANDOM URINE W/CREATININE Routine 10/08/2024 9:55 AM EST Type 2 diabetes mellitus with hyperglycemia, without long-term current use of insulin (CMS/HCC) LIPID PANEL, STANDARD Routine 10/08/2024 9:55 AM [...] Recently Relevant to Health Maintenance Results * Culture, Urine, Routine (04/14/2025 3:23 PM EDT) Urine Urine specimen obtained by clean catch procedure / Unknown 04/14/2025 3:23 PM EDT 04/14/2025 5:21 PM EDT Comment:UACC Narrative [facility] - 04/16/2025 8:51 AM EDT Urine Culture No growth. Specimen Source: Urine clean catch us Royer Doyle MD LAB MICROBIOLOGY - GENERAL ORDER CUAUHTEMOC Final Result [facility] [address] [place] [phone] * (ABNORMAL) POCT urinalysis dipstick manually resulted (04/14/2025 2:46 PM EDT) Color, UA Yellow Clarity, UA Clear Glucose, UA Few 15 Comment:500 mg/dL Bilirubin, UA Negative Ketones, UA Negative Spec Grav, UA 1.020 Blood, UA Positive(A) Negative, None Detected Comment:Trace- intact pH, UA 5.5 Protein, UA Negative Comment:30 mg/dL Urobilinogen, UA 0.2 Leukocytes, UA Negative Negative, Rare, Trace Nitrite, UA Negative Negative, None Detected Urine 04/14/2025 2:46 PM EDT us Royer Doyle MD POINT OF CARE TEST ENTER/EDIT OR DERABLES Final Result * XR Foot 3+ Views Left (02/27/2025 8:13 PM EDT) Anatomical Region Laterality Modality Lower Extremities, Foot Left Radiogra phic Imaging 02/27/2025 8:13 PM EDT Narrative 02/27/2025 8:15 PM EDT [address] [address] XRay Report Signed Patient: Octavio Hardin,Andrea MR#: [id number] : 1960 Acct:[id number] Age/Sex: 64 / M ADM Date: 02/26/25 Loc: [facility] Attending Dr: Maritza Alfonso PERINATOLOGY PHYSICIAN Ordering Physician: Maritza Alfonso Date of Service: 02/26/25 Procedure(s): XR foot LT min 3V Accession Number(s): [id number] cc: Maritza Alfonso [facility] CLINICAL HISTORY: NON HEALING WOUND Left foot three views Comparison: 08/13/2024 Findings: No acute fracture or dislocation identified. Soft tissue edema medial 1st digit. Degenerative change in multiple joints. No radiopaque foreign body noted. Impression: No acute bony abnormality This document has been electronically signed by: Angel Rodriguez MD on 02/27/2025 20:13:57 Dictated By: Angel Rodriguez MD Signed By: <Electronically signed by Anegl Rodriguez MD in OV> 02/27/252014 DD/ 12 TD/TT: 02/27/252012 Sales Representative Groceries: Procedure Note Donotuseinterpreter, Image - 02/27/[address] [address] XRay Report Signed Patient: Néstor Chamorro LMR#: [id number] : 1960cct:[id number] Age/Sex: 64 / MADM Date: 02/26/25 Loc: [facility] Attending Dr: Maritza Alfonso PERINATOLOGY PHYSICIAN Ordering Physician: Maritza Alfonso Date of Service: 02/26/25 Procedure(s): XR foot LT min 3V Accession Number(s): [id number] cc: Maritza Alfonso [facility] CLINICAL HISTORY: NON HEALING WOUND Left foot three views Comparison: 08/13/2024 Findings: No acute fracture or dislocation identified. Soft tissue edema medial 1st digit. Degenerative change in multiple joints. No radiopaque foreign body noted. Impression: No acute bony abnormality This document has been electronically signed by: Angel Rodriguez MD on 02/27/2025 20:13:57 Dictated By: Angel Rodriguez MD Signed By: <Electronically signed by Angel Rodriguez MD in OV> 02/27/252014 DD/ 12 TD/TT: 02/27/252012 Sales Representative Groceries: Result [facility] IMG XR PROCEDURES Edited Resu lt - Final * (ABNORMAL) POCT HGB A1C (12/25/2024 1:06 PM EDT) Hemoglobin A1C 8.7(A) 4.0 - 6.0 % Blood 12/25/2024 1:06 PM EDT Result [facility] POINT OF CARE TEST ENTER/EDIT ORDERABLES Final Result * Albumin, Random Urine W/Creatinine (10/08/2024 9:55 AM EST) Creatinine, Urine 98.17 mg/dL [facility] Microalbumin Urine 20.0 mg/L [facility] Microalbum Creatinine Ratio Ur 20.3 <30 ug/mg cr [facility] Comment:Albumin/Creatinine R atio Reference Ranges: Normal: < 30 ug/mg creatinine Microalbuminuria: 30 - 300 ug/mg creatinineClinical Albuminuria: > 300 ug/mg creatinine Urine 10/08/2024 9:55 AM EST 10/08/2024 10:32 AM EST Result [facility] LAB URINE ORDERABLES Final Re sult [facility] [address] [place] [phone] * Lipid Panel, Standard (10/08/2024 9:55 AM EST) Triglycerides 51 <150 mg/dL [facility] Comment:Desirable Triglyceri de: less than 150 mg/dLBorderline High Triglyceride 150-199 mg/dLHigh Triglyceride: 200-499 mg/dLVery High Triglyceride: greater than or equal to 5OO mg/dL Cholesterol 153 <200 mg/dL [facility] Comment:Desirable Cholestero l: less than 200 mg/dLBorderline High Cholesterol: 200-239 mg/dLHigh Cholesterol: greater than 239 mg/dL LDL Cholesterol Calculated 91 <100 mg/dL [facility] Comment:Desirable LDL: less than 100 [...] 9:55 AM EST 10/08/2024 9:55 AM EST [facility] LAB BLOOD ORDERABLES Final Re sult [facility] [address] [place] [phone] * Referral to Optometry (07/08/2024) [facility] OUTPATIENT REFERRAL ORDERABLE S Final Result * HEPATITIS C AB W/REFL TO HCV RNA, QN, PCR (05/24/2022 11:27 AM EDT) HEPATITIS C ANTIBODY NON-REACT ALICIA NON-REACT ALICIA [facility] INDEX 0.06 <1.00 [facility] Comment: HCV antibody was non-reactive. There is no laboratory evidence of HCV infection. In most cases, no further action is required. However, if recent HCV exposure is suspected, a test for HCV RNA (test code 46768) is suggested. For additional information please refer to http://education.2C2P/faq/NWP74n1 (This link is being provided for informational/ educational purposes only.) 05/24/2022 11:2 7 AM EDT [facility] PERINATOLOGY PHYSICIAN HISTORICAL/NON ORDERABLE LABS Final Result Performing Organization Address [facility] Co de Phone Number [facility] [address] * HIV 1/2 ANTIGEN/ANTIBODY,FOURTH GENERATION W/RFL (05/24/2022 11:27 AM EDT) HIV-1/2 ANTIGEN AND ANTIBODIES, 4TH GENERATION W/ REFLEX NON-REACT ALICIA NON-REACT ALICIA [facility] Comment: HIV-1 antigen and HIV-1/HIV-2 antibodies were not detected. There is no laboratory evidence of HIV infection. PLEASE NOTE: This information has been disclosed to you from records whose confidentiality may be protected by state law. If your state requires such protection, then the state law prohibits you from making any further disclosure of the information without the specific written consent of the person to whom it pertains, or as otherwise permitted by law. A general authorization for the release of medical or other information is NOT sufficient for this purpose. For additional information please refer to http://education.2C2P/faq/SDJ287 (This link is being provided for informational/ educational purposes only.) The performance of this assay has not been clinically validated in patients less than 2 years old. 05/24/2022 11:2 7 AM EDT [facility] LAB BLOOD ORDERABLES Final Re sult Performing Organization Address [facility] de Phone Number [facility] [address] * Colonoscopy (12/28/2013) Colonoscopy performed Historical Provider MD HEALTH MAINTENANCE Final Result from Last 3 Months or Most Recently Relevant to Health Maintenance Insurance MEDICARE [facility] STANDARD DENTAL-[facility] MEDICAID STAND ADULT Care Teams Abnormal Psychology Teacher Relationship Specialty Start Date End Date Combes, Maritza, [facility] [address] [facility] [place] [address] PCP - General Family Medicine 05/24/22 Chetan MEYERS 10/21/24
== END 2025-04-26 15:06 | disposition home or self-care (01) ==
LOC: HO.HVNA 15:05
PROVIDERS: Visit Provider Internal Medicine
DX: B99.9 Unspecified infectious disease (principal)
CPT/HCPCS: 36415; 80053; 82550; 85025

== ENCOUNTER 2025-05-03 11:58 | Outpatient (REF) | payer MEDICARE, MEDICAID, SELFPAY ==
--- OUTSIDE RECORDS SUMMARY | 2025-05-03 12:01 | XMS_ITS | Encounter Summary ---
Author Organization [facility] [place], Address [address] [place] [address] Phone Care Team Providers Care Firer Diesel Locomotive Name Role Phone [facility] Primary Care Provider [phone] Encounter Details Date Type Department Care Team (Late Contact Info) Description 09/02/2023 Orders Only [facility] [address] [place] [address] Hank Cho PA [address] [place] [address] [place] [address] Chronic kidney disease, stage 2 [...] [facility] [address] [place] [address] Mick Badillo MD [address] [place] [address] [place] [address] documented as of this encounter Visit Diagnoses Diagnosis Chronic kidney disease, stage 2 (mild) Essential (primary) hypertension Type 2 diabetes mellitus, not otherwise specified (HCC) documented in this encounter Care Teams Firer Diesel Locomotive Relationship Specialty Start Date End Date [facility] [address] [place] [address] PCP - General 06/26/22 documented as of this encounter
--- OUTSIDE RECORDS SUMMARY | 2025-05-03 12:01 | XMS_ITS | Encounter Summary ---
Author Organization [facility] Address [address] [place] [address] Phone Care Team Providers Care Farm Appraiser Name Role Phone [facility] Primary Care Provider [phone] Encounter Details Date Type Department Care Team (Late Contact Info) Description 10/25/2023 Documentation Only [facility] [address] [place] [address] Diane Morrison [address] [place] [phone] Social History Tobacco Use Types Packs/Day [...] [facility] [address] [place] [address] Mick Badillo MD [address] [place] [address] [place] [address] documented as of this encounter Visit Diagnoses Not on filedocumented in this encounter Care Teams Farm Appraiser Relationship Specialty Start Date End Date [facility] [address] [place] [address] [phone] PCP - General 06/26/22 documented as of this encounter
--- OUTSIDE RECORDS SUMMARY | 2025-05-03 12:01 | XMS_ITS | Encounter Summary ---
Author Organization [facility] Address [address] [place] [address] Phone Care Team Providers Care Scientific Advisor Name Role Phone [facility] Primary Care Provider [phone] Encounter Details Date Type Department Care Team (Late Contact Info) Description 10/25/2023 Documentation Only [facility] [address] [place] [address] Diane Morrison [address] [place] [phone] Social History Tobacco Use Types Packs/Day [...] [facility] [address] [place] [address] Mick Badillo MD [address] [place] [address] [place] [address] documented as of this encounter Visit Diagnoses Not on filedocumented in this encounter Care Teams Scientific Advisor Relationship Specialty Start Date End Date [facility] [address] [place] [address] [phone] PCP - General 06/26/22 documented as of this encounter
--- OUTSIDE RECORDS SUMMARY | 2025-05-03 12:01 | XMS_ITS | Encounter Summary ---
Author Organization [facility] [place], Address [address] [place] [address] Phone Care Team Providers Care Software Engineer Mobile Name Role Phone [facility] Primary Care Provider [phone] Encounter Details Date Type Department Care Team (Late Contact Info) Description 06/29/2024 Orders Only [facility] [address] [place] [address] Hank Cho PA [address] [place] [address] [place] [address] Chronic kidney disease, stage 2 [...] [facility] [address] [place] [address] Mick Badillo MD [address] [place] [address] [place] [address] documented as of this encounter Visit Diagnoses Diagnosis Chronic kidney disease, stage 2 (mild) Type 2 diabetes mellitus, not otherwise specified (HCC) Essential (primary) hypertension Microalbuminuria documented in this encounter Care Teams Software Engineer Mobile Relationship Specialty Start Date End Date Maritza Alfonso [address] [place] [address] PCP - General 06/26/22 documented as of this encounter
--- OUTSIDE RECORDS SUMMARY | 2025-05-03 12:01 | XMS_ITS | Encounter Summary ---
Author Organization [facility] [place], Address [address] [place] [address] Phone Care Team Providers Care Wastewater Superintendent Name Role Phone [facility] Primary Care Provider [phone] Encounter Details Date Type Department Care Team (Late Contact Info) Description 02/26/2023 Documentation Only [facility] [address] [place] [address] Hank Cho PA [address] [place] [address] [place] [address] Social History Tobacco Use Types [...] Visit [facility] [address] [place] [address] Mick Badillo MD [address] [place] [address] [place] [address] documented as of this encounter Visit Diagnoses Not on filedocumented in this encounter Care Teams Wastewater Superintendent Relationship Specialty Start Date End Date [facility] [address] [place] [address] PCP - General 06/26/22 documented as of this encounter
--- OUTSIDE RECORDS SUMMARY | 2025-05-03 12:01 | XMS_ITS | Encounter Summary ---
Author Organization [facility] Address [address] [place] [address] Phone Care Team Providers Care Statistical Modeler Name Role Phone [facility] Primary Care Provider [phone] Encounter Details Date Type Department Care Team (Late Contact Info) Description 07/07/2024 Documentation Only [facility] [address] [place] [address] Diane Morrison [address] [place] [phone] Social History Tobacco Use Types Packs/Day [...] [facility] [address] [place] [address] Mick Badillo MD [address] [place] [address] [place] [address] documented as of this encounter Visit Diagnoses Not on filedocumented in this encounter Care Teams Statistical Modeler Relationship Specialty Start Date End Date [facility] [address] [place] [address] [phone] PCP - General 06/26/22 documented as of this encounter
--- OUTSIDE RECORDS SUMMARY | 2025-05-03 12:01 | XMS_ITS | Encounter Summary ---
Author Organization [facility] Address [address] [place] [address] Phone Care Team Providers Care Footwear Factory Worker Name Role Phone [facility] Primary Care Provider [phone] Encounter Details Date Type Department Care Team (Late Contact Info) Description 04/30/2025 Documentation Only [facility] [address] [place] [address] Radha Valentin [place] [address] [place] [phone] Social History Tobacco Use Types Packs/Day Years [...] [facility] [address] [place] [address] Mick Badillo MD [address] [place] [address] [place] [address] documented as of this encounter Visit Diagnoses Not on filedocumented in this encounter Care Teams Footwear Factory Worker Relationship Specialty Start Date End Date [facility] [place] [address] [place] [address] PCP - General 06/26/22 documented as of this encounter
--- OUTSIDE RECORDS SUMMARY | 2025-05-03 12:02 | XMS_ITS | Encounter Summary ---
Author Organization [facility] [place], Address [address] [place] [address] Phone Care Team Providers Care Solar Energy Engineer Name Role Phone [facility] Primary Care Provider [phone] Encounter Details Date Type Department Care Team (Late Contact Info) Description 06/01/2022 Documentation Only [facility] [address] [place] [address] Hank Cho PA [address] [place] [address] [place] [address] Social History Tobacco Use Types [...] Visit [facility] [address] [facility] [place] [address] Mick Badillo MD [address] [place] [address] [place] [address] documented as of this encounter Visit Diagnoses Not on filedocumented in this encounter Care Teams Solar Energy Engineer Relationship Specialty Start Date End Date [facility] [address] [place] [address] PCP - General 06/26/22 documented as of this encounter
--- OUTSIDE RECORDS SUMMARY | 2025-05-03 12:02 | XMS_ITS | Encounter Summary ---
Author Organization [facility] [place], Address [address] [place] [address] Phone Care Team Providers Care Rugby Union Footballer Name Role Phone [facility] Primary Care Provider [phone] Encounter Details Date Type Department Care Team (Late Contact Info) Description 02/22/2023 Documentation Only [facility] [address] [place] [address] Hank Cho PA [address] [place] [address] [place] [address] Social History Tobacco Use Types [...] Visit [facility] [address] [address] Mick Badillo MD [address] [place] [address] [place] [address] documented as of this encounter Visit Diagnoses Not on filedocumented in this encounter Care Teams Rugby Union Footballer Relationship Specialty Start Date End Date [facility] [address] [place] [address] PCP - General 06/26/22 documented as of this encounter
--- OUTSIDE RECORDS SUMMARY | 2025-05-03 12:02 | XMS_ITS | Encounter Summary ---
Author Organization [facility] [place], Address [address] [place] [address] Phone Care Team Providers Care Abatement Worker Name Role Phone [facility] Primary Care Provider [phone] Encounter Details Date Type Department Care Team (Late Contact Info) Description 05/28/2022 Documentation Only [facility] [address] [place] [address] Hank Cho PA [address] [place] [address] [place] [address] Social History Tobacco Use [...] [facility] [address] [place] [address] Mick Badillo MD [address] [place] [address] [place] [address] documented as of this encounter Visit Diagnoses Not on filedocumented in this encounter Care Teams Abatement Worker Relationship Specialty Start Date End Date [facility] [address] [place] [phone] PCP - General 06/26/22 documented as of this encounter
--- OUTSIDE RECORDS SUMMARY | 2025-05-03 12:02 | XMS_ITS | Encounter Summary ---
Author Organization [facility] [place], Address [address] [place] [address] Phone Care Team Providers Care National Van Owner Operator Name Role Phone [facility] Primary Care Provider [phone] Encounter Details Date Type Department Care Team (Late Contact Info) Description 05/31/2022 Documentation Only [facility] [address] [place] [address] Hank Cho PA [address] [place] [address] [place] [address] Social History Tobacco Use Types [...] Visit [facility] [address] [place] [address] Mick Badillo MD [address] [place] [address] Dr[place] [address] documented as of this encounter Visit Diagnoses Not on filedocumented in this encounter Care Teams National Van Owner Operator Relationship Specialty Start Date End Date [facility] [address] [place] [address] PCP - General 06/26/22 documented as of this encounter
--- OUTSIDE RECORDS SUMMARY | 2025-05-03 12:02 | XMS_ITS | Encounter Summary ---
Author Organization [facility] [place], Address [address] [place] [address] Phone Care Team Providers Care Engine Maintenance Mechanic Name Role Phone [facility] Primary Care Provider [phone] Encounter Details Date Type Department Care Team (Late Contact Info) Description 06/22/2022 Documentation Only [facility] [address] [place] [address] Hank Cho PA [address] [place] [address] [place] [address] Social History Tobacco Use Types [...] Visit [facility] [address] [address] [place] [address] Mick Badillo MD [address] [place] [address] [place] [address] documented as of this encounter Visit Diagnoses Not on filedocumented in this encounter Care Teams Engine Maintenance Mechanic Relationship Specialty Start Date End Date [facility] [address] [place] [phone] PCP - General 06/26/22 documented as of this encounter
--- OUTSIDE RECORDS SUMMARY | 2025-05-03 12:02 | XMS_ITS | Encounter Summary ---
Author Organization [facility] [place], Address [address] [place] [address] Phone Care Team Providers Care Thermospray Operator Name Role Phone [facility] Primary Care Provider [phone] Encounter Details Date Type Department Care Team (Late Contact Info) Description 02/25/2023 Documentation Only [facility] [address] [place] [address] Hank Cho PA [address] [place] [address] [place] [address] Social History Tobacco Use Types [...] Visit [facility] [address] [place] [address] Mick Badillo MD [address] [place] [address] [place] [address] documented as of this encounter Visit Diagnoses Not on filedocumented in this encounter Care Teams Thermospray Operator Relationship Specialty Start Date End Date [facility] [address] [place] [address] PCP - General 06/26/22 documented as of this encounter
--- OUTSIDE RECORDS SUMMARY | 2025-05-03 12:02 | XMS_ITS | Clinical Summary ---
Author Organization [facility], Address [address] [place] [address] [place] [address] Phone Care Team Providers Care Waterway Traffic Checker Name Role Phone [facility] Primary Care Provider [phone] Allergies Active Allergy Reactions Criticality Noted Date [...] Encounters Date Type Department Care Team Description 04/30/2025 Documentation Only [facility] [address] [place] [address] Radha Valentin MA 04/26/2025 Documentation Only [facility] [address] [place] [address] Radha Valentin MA 03/24/2025 10:10 AM EDT Office Visit [facility] [address] [place] [address] Mick Badillo MD Renal disorder due to [...] Visit [facility], [address] [facility] [place] [place] [address] Mick Badillo MD [address] [facility] [place] [address] Health Maintenance Due Date Last Done Comments [...] Name Priority Date/Time Associated Diagnosis Comments LAB AUTOMATIC BANDSAW TENDER Routine 01/29/2018 12:00 AM EDT from Last 3 Months or Most Recently Relevant to Health Maintenance Results * Lab Supervising Librarian (01/29/2018 12:00 AM EDT) Hemoglobin A1C 7.8 % [facility] 01/29/2018 us [facility] Conversion LAB [id number] LICITED RESULTS Final Result [facility] from Last 3 Months or Most Recently Relevant to Health Maintenance [place] [address] [place] [id number] Care Teams Waterway Traffic Checker Relationship Specialty Start Date End Date [facility] [address] [facility] [place] [address] PCP - General 06/26/22
--- OUTSIDE RECORDS SUMMARY | 2025-05-03 12:02 | XMS_ITS | Encounter Summary ---
Author Organization [facility] Address [address] [place] [address] Phone Care Team Providers Care Sander Hand Name Role Phone [facility] Primary Care Provider [phone] Encounter Details Date Type Department Care Team (Late Contact Info) Description 05/31/2022 Documentation Only [facility] [address] [place] [address] Alexander Zhou MD [address] [facility] [place] [address] Social History Tobacco Use Types [...] [facility] [address] [place] [address] Mick Badillo MD [address] [facility] [address] [place] [address] documented as of this encounter Visit Diagnoses Not on filedocumented in this encounter Care Teams Sander Hand Relationship Specialty Start Date End Date [facility] [address] [place] [address] PCP - General 06/26/22 documented as of this encounter
[2025-05-03 12:03] LABS: MANUAL DIFF FLAG NO
[2025-05-03 12:07] LABS: Hematocrit 40.9 % (42.0-52.0); Hemoglobin 12.9 g/dl (14.0-18.0); Imm Gran Abs Auto 0.00 X10*3/uL (0.00-0.03); Imm Gran Pct Auto 0.0 % (0.0-0.4); Lymphocytes Absolute Auto 0.7 X10*3/uL (1.2-4.9); Mean Corpuscular HGB Conc 31.5 g/dl (31.0-36.0); Mean Corpuscular Hemoglobin 26.9 pg (27.0-33.0); Mean Corpuscular Volume 85.2 fL (80.0-98.0); NRBC Abs Auto 0.000 X10*3/uL (0.0-0.012); NRBC Pct Auto 0.0 /100WBC (0.0-0.2); Platelet Count 235 X10*3/uL (160-400); Red Blood Count 4.80 X10*6/uL (4.60-5.80); White Blood Count 4.1 X10*3/uL (4.8-10.8)
[2025-05-03 12:21] LABS: Alanine Aminotransferase 31 U/L (0-40); Albumin Level 4.3 g/dL (3.5-5.0); Alkaline Phosphatase 68 U/L (39-117); Anion Gap 14 (12-20); Aspartate Amino Transferase 31 U/L (5-37); Blood Urea Nitrogen 22 mg/dL (9-16); Calcium 9.7 mg/dL (8.4-10.2); Carbon Dioxide 28 mmol/L (22-29); Chloride 102 mmol/L (96-108); Estimated Glomerular Filt Rate > 60; Potassium 4.8 mmol/L (3.3-5.1); Sodium 139 mmol/L (135-145); Total Protein 8.8 g/dL (6.5-8.0)
== END 2025-05-03 11:59 | disposition home or self-care (01) ==
LOC: HO.HVNA 11:58
PROVIDERS: Visit Provider Internal Medicine
DX: B99.9 Unspecified infectious disease (principal)
CPT/HCPCS: 36415; 80053; 82550; 85025

== ENCOUNTER 2025-05-10 11:32 | Outpatient (REF) | payer MEDICARE, MEDICAID, SELFPAY ==
[2025-05-10 11:38] LABS: MANUAL DIFF FLAG NO
[2025-05-10 11:41] LABS: Hematocrit 39.4 % (42.0-52.0); Hemoglobin 12.9 g/dl (14.0-18.0); Imm Gran Abs Auto 0.02 X10*3/uL (0.00-0.03); Imm Gran Pct Auto 0.5 % (0.0-0.4); Lymphocytes Absolute Auto 0.9 X10*3/uL (1.2-4.9); Mean Corpuscular HGB Conc 32.7 g/dl (31.0-36.0); Mean Corpuscular Hemoglobin 27.4 pg (27.0-33.0); Mean Corpuscular Volume 83.8 fL (80.0-98.0); NRBC Abs Auto 0.000 X10*3/uL (0.0-0.012); NRBC Pct Auto 0.0 /100WBC (0.0-0.2); Platelet Count 210 X10*3/uL (160-400); Red Blood Count 4.70 X10*6/uL (4.60-5.80); White Blood Count 4.4 X10*3/uL (4.8-10.8)
[2025-05-10 12:24] LABS: Alanine Aminotransferase 31 U/L (0-40); Albumin Level 4.3 g/dL (3.5-5.0); Alkaline Phosphatase 68 U/L (39-117); Anion Gap 13 (12-20); Aspartate Amino Transferase 48 U/L (5-37); Blood Urea Nitrogen 25 mg/dL (9-16); Calcium 9.6 mg/dL (8.4-10.2); Carbon Dioxide 26 mmol/L (22-29); Chloride 104 mmol/L (96-108); Estimated Glomerular Filt Rate > 60; Potassium 4.3 mmol/L (3.3-5.1); Sodium 139 mmol/L (135-145); Total Protein 8.4 g/dL (6.5-8.0)
--- OUTSIDE RECORDS SUMMARY | 2025-05-10 14:14 | XMS_ITS | Encounter Summary ---
Author Organization [facility] [place], Address [address] [place] [address] Phone Care Team Providers Care Metal Mold Dresser Name Role Phone [facility] Primary Care Provider [phone] Encounter Details Date Type Department Care Team (Late Contact Info) Description 05/31/2022 Documentation Only [facility] [address] [place] [address] Hank Cho PA [address] [place] [address] [place] [address] Social History Tobacco Use Types [...] Visit [facility] [address] [facility] [place] [address] Mick Badillo MD [address] [place] [address] [place] [address] documented as of this encounter Visit Diagnoses Not on filedocumented in this encounter Care Teams Metal Mold Dresser Relationship Specialty Start Date End Date [facility] [address] [place] [address] PCP - General 06/26/22 documented as of this encounter
--- OUTSIDE RECORDS SUMMARY | 2025-05-10 14:14 | XMS_ITS | Encounter Summary ---
Author Organization [facility] [place], Address [address] [place] [address] Phone Care Team Providers Care Bleach Analyst Name Role Phone [facility] Primary Care Provider Encounter Details Date Type Department Care Team (Late Contact Info) Description 02/26/2023 Documentation Only [facility] [address] [place] [address] Hank Cho PA [address] [place] [address] [place] [address] Social History Tobacco Use Types [...] Visit [facility] [address] [facility] [place] [address] Mick Badillo MD [address] [place] [address] [place] [address] documented as of this encounter Visit Diagnoses Not on filedocumented in this encounter Care Teams Bleach Analyst Relationship Specialty Start Date End Date [facility] [address] [place] [address] PCP - General 06/26/22 documented as of this encounter
--- OUTSIDE RECORDS SUMMARY | 2025-05-10 14:14 | XMS_ITS | Clinical Summary ---
Author Organization [facility] [place], Address [address] [place] [address] [place] [address] Phone Care Team Providers Care Screw Machine Hand Name Role Phone [facility] Primary Care Provider [phone] Allergies Active Allergy Reactions Criticality Noted Date [...] [facility] [address] [place] [address] Radha Valentin MA 04/26/2025 Documentation Only [facility] [address] [place] [address] Radha Valentin MA 03/24/2025 10:10 AM EDT Office Visit [facility] [address] [place] [address] Mick Badillo MD Renal disorder due to [...] Visit [facility] [place], [address] [facility] [place] [address] Mick Badillo MD [address] [facility] [place] [address] Health Maintenance Due Date Last Done Comments [...] Name Priority Date/Time Associated Diagnosis Comments LAB CHRO Routine 01/29/2018 12:00 AM EDT from Last 3 Months or Most Recently Relevant to Health Maintenance Results * Lab Staff Consultant (01/29/2018 12:00 AM EDT) Hemoglobin A1C 7.8 % [facility] 01/29/2018 us [facility]ct[facility] Conversion LAB [id number] LICITED RESULTS Final Result [facility] from Last 3 Months or Most Recently Relevant to Health Maintenance [place] [address] [place] [id number] Care Teams Screw Machine Hand Relationship Specialty Start Date End Date [facility] [address] [facility] [place] [address] PCP - General 06/26/22
--- OUTSIDE RECORDS SUMMARY | 2025-05-10 14:14 | XMS_ITS | Encounter Summary ---
Author Organization [facility] Address [address] [place] [address] Phone Care Team Providers Care Supervisor Brew House Name Role Phone [facility] Primary Care Provider [phone] Encounter Details Date Type Department Care Team (Late Contact Info) Description 10/25/2023 Documentation Only [facility] [address] [place] [address] Diane Morrison [address] [place] [address] Social History Tobacco Use Types Packs/Day [...] [facility] [address] [place] [address] Mick Badillo MD [address] [place] [address] [place] [address] documented as of this encounter Visit Diagnoses Not on filedocumented in this encounter Care Teams Supervisor Brew House Relationship Specialty Start Date End Date [facility] [address] [place] [address] [phone] PCP - General 06/26/22 documented as of this encounter
--- OUTSIDE RECORDS SUMMARY | 2025-05-10 14:14 | XMS_ITS | Encounter Summary ---
Author Organization [facility] Address [address] [place] [address] Phone Care Team Providers Care Home Improvement Contractor Name Role Phone [facility] Primary Care Provider [phone] Encounter Details Date Type Department Care Team (Late Contact Info) Description 07/07/2024 Documentation Only [facility] [address] [place] [address] Diane Morrison [address] [place] [phone] Social History Tobacco Use Types Packs/Day [...] Visit [facility] [address] [place] [address] Mick Badillo MD [address] [place] [address] [place] [address] documented as of this encounter Visit Diagnoses Not on filedocumented in this encounter Care Teams Home Improvement Contractor Relationship Specialty Start Date End Date [facility] [address] [place] [address] [phone] PCP - General 06/26/22 documented as of this encounter
--- OUTSIDE RECORDS SUMMARY | 2025-05-10 14:14 | XMS_ITS | Encounter Summary ---
Author Organization [facility] [place], Address [address] [place] [address] Phone Care Team Providers Care House Fellow Name Role Phone [facility] Primary Care Provider [phone] Encounter Details Date Type Department Care Team (Late Contact Info) Description 05/28/2022 Documentation Only [facility] [address] [place] [address] Hank Cho PA [address] [place] [address] [place] [address] Social History Tobacco Use Types [...] [facility] [address] [facility] [place] [address] Mick Badillo MD [address] [place] [address] [place] [address] documented as of this encounter Visit Diagnoses Not on filedocumented in this encounter Care Teams House Fellow Relationship Specialty Start Date End Date [facility] [address] [place] [address] PCP - General 06/26/22 documented as of this encounter
--- OUTSIDE RECORDS SUMMARY | 2025-05-10 14:14 | XMS_ITS | Encounter Summary ---
Author Organization [facility] [place], Address [address] [place] [address] Phone Care Team Providers Care Radiotelephone Technical Operator Name Role Phone [facility] Primary Care Provider [phone] Encounter Details Date Type Department Care Team (Late Contact Info) Description 06/22/2022 Documentation Only [facility] [address] [place] [address] Hank Cho PA [address] [place] [address] [place] [address] Social History Tobacco Use Types [...] Visit [facility] [address] [place] [address] Mick Badillo MD [address] [place] [address] [place] [address] documented as of this encounter Visit Diagnoses Not on filedocumented in this encounter Care Teams Radiotelephone Technical Operator Relationship Specialty Start Date End Date [facility] [address] [place] [address] PCP - General 06/26/22 documented as of this encounter
--- OUTSIDE RECORDS SUMMARY | 2025-05-10 14:14 | XMS_ITS | Encounter Summary ---
Author Organization [facility] [place], Address [address] [place] [address] Phone Care Team Providers Care Courtesy Booth Cashier Name Role Phone [facility] Primary Care Provider [phone] Encounter Details Date Type Department Care Team (Late Contact Info) Description 09/02/2023 Orders Only [facility] [address] [place] [address] Hank Cho PA [address] [place] [address] [place] [address] Chronic kidney disease, stage 2 [...] [facility] [address] [place] [address] Mick Badillo MD [address] [place] [address] [place] [address] documented as of this encounter Visit Diagnoses Diagnosis Chronic kidney disease, stage 2 (mild) Essential (primary) hypertension Type 2 diabetes mellitus, not otherwise specified (HCC) documented in this encounter Care Teams Courtesy Booth Cashier Relationship Specialty Start Date End Date [facility] [address] [place] [address] PCP - General 06/26/22 documented as of this encounter
--- OUTSIDE RECORDS SUMMARY | 2025-05-10 14:14 | XMS_ITS | Encounter Summary ---
Author Organization [facility] [place], Address [address] [place] [address] Phone Care Team Providers Care Canine Enforcement Officer Name Role Phone [facility] Primary Care Provider [phone] Encounter Details Date Type Department Care Team (Late Contact Info) Description 06/01/2022 Documentation Only [facility] [address] [place] [place] [address] Hank Cho PA [address] [place] [address] [place] [address] Social History Tobacco Use Types [...] Visit [facility] [address] [facility] [place] [address] Mick Badillo MD [address] [place] [address] [place] [address] documented as of this encounter Visit Diagnoses Not on filedocumented in this encounter Care Teams Canine Enforcement Officer Relationship Specialty Start Date End Date [facility] [address] [place] [address] PCP - General 06/26/22 documented as of this encounter
--- OUTSIDE RECORDS SUMMARY | 2025-05-10 14:14 | XMS_ITS | Encounter Summary ---
Author Organization [facility] [place], Address [address] [place] [address] Phone Care Team Providers Care Regional Hr Manager Name Role Phone [facility] Primary Care Provider [phone] Encounter Details Date Type Department Care Team (Late Contact Info) Description 06/29/2024 Orders Only [facility] [address] [facility] [place] [address] Hank Cho PA [address] [place] [address] [place] [address] Chronic kidney disease, stage 2 [...] Visit [facility] [address] [place] [address] Mick Badillo MD [address] [place] [address] [place] [address] documented as of this encounter Visit Diagnoses Diagnosis Chronic kidney disease, stage 2 (mild) Type 2 diabetes mellitus, not otherwise specified (HCC) Essential (primary) hypertension Microalbuminuria documented in this encounter Care Teams Regional Hr Manager Relationship Specialty Start Date End Date Maritza Alfon[address] [place] [address] PCP - General 06/26/22 documented as of this encounter
--- OUTSIDE RECORDS SUMMARY | 2025-05-10 14:14 | XMS_ITS | Encounter Summary ---
Author Organization [facility] [place], Address [address] [place] [address] Phone Care Team Providers Care Sleeve Sewer Name Role Phone [facility] Primary Care Provider [phone] Encounter Details Date Type Department Care Team (Late Contact Info) Description 02/25/2023 Documentation Only [facility] [address] [place] [address] Hank Cho PA [address] [place] [address] [place] [address] Social History Tobacco Use Types [...] Visit [facility] [address] [place] [address] Mick Badillo MD [address] [place] [address] [place] [address] documented as of this encounter Visit Diagnoses Not on filedocumented in this encounter Care Teams Sleeve Sewer Relationship Specialty Start Date End Date [facility] [address] [place] [address] PCP - General 06/26/22 documented as of this encounter
--- OUTSIDE RECORDS SUMMARY | 2025-05-10 14:14 | XMS_ITS | Encounter Summary ---
Author Organization [facility] Address [address] [place] [address] Phone Care Team Providers Care Mental Health Orderly Name Role Phone [facility] Primary Care Provider [phone] Encounter Details Date Type Department Care Team (Late Contact Info) Description 04/30/2025 Documentation Only [facility] [address] [place] [address] Radha Valentin [place] [address] [place] [phone] Social History Tobacco Use Types Packs/Day Years [...] [facility] [address] [place] [address] Mick Badillo MD [address] [place] [address] [place] [address] documented as of this encounter Visit Diagnoses Not on filedocumented in this encounter Care Teams Mental Health Orderly Relationship Specialty Start Date End Date [facility] [address] [place] [address] PCP - General 06/26/22 documented as of this encounter
--- OUTSIDE RECORDS SUMMARY | 2025-05-10 14:14 | XMS_ITS | Encounter Summary ---
Author Organization [facility] Address [address] [place] [address] Phone Care Team Providers Care Human Intelligence Name Role Phone [facility] Primary Care Provider [phone] Encounter Details Date Type Department Care Team (Late Contact Info) Description 05/31/2022 Documentation Only [facility] [address] [place] [address] Alexander Zhou MD [address] [facility] [place] [address] Social History Tobacco Use Types [...] [facility] [address] [place] [address] Mick Badillo MD [address] [facility] [place] [address] documented as of this encounter Visit Diagnoses Not on filedocumented in this encounter Care Teams Human Intelligence Relationship Specialty Start Date End Date [facility] [address] [place] [address] PCP - General 06/26/22 documented as of this encounter
--- OUTSIDE RECORDS SUMMARY | 2025-05-10 14:14 | XMS_ITS | Encounter Summary ---
Author Organization [facility] [place], Address [address] [place] [address] Phone Care Team Providers Care Director Of Radiology Name Role Phone [facility] Primary Care Provider [phone] Encounter Details Date Type Department Care Team (Late Contact Info) Description 02/22/2023 Documentation Only [facility] [address] [place] [address] Hank Cho PA [address] [place] [address] [place] [address] Social History Tobacco Use Types [...] Visit [facility] [address] [facility] [place] [address] Mick Badillo MD [address] [address] [place] [address] documented as of this encounter Visit Diagnoses Not on filedocumented in this encounter Care Teams Director Of Radiology Relationship Specialty Start Date End Date [facility] [address] [place] [address] PCP - General 06/26/22 documented as of this encounter
--- OUTSIDE RECORDS SUMMARY | 2025-05-10 14:14 | XMS_ITS | Encounter Summary ---
Author Organization [facility] Address [address] [address] Phone Care Team Providers Care Administration Manager Name Role Phone [facility] Primary Care Provider [phone] Encounter Details Date Type Department Care Team (Late Contact Info) Description 10/25/2023 Documentation Only [facility] [address] [place] [address] Diane Morrison [address] [place] [address] Social History Tobacco Use Types Packs/Day [...] [facility] [address] [place] [address] Mick Badillo MD [address] [place] [address] [place] [address] documented as of this encounter Visit Diagnoses Not on filedocumented in this encounter Care Teams Administration Manager Relationship Specialty Start Date End Date [facility] [address] [place] [address] [phone] PCP - General 06/26/22 documented as of this encounter
[2025-05-10 16:09] LABS: MANUAL DIFF FLAG NO
[2025-05-10 16:17] LABS: Hematocrit 42.5 % (42.0-52.0); Hemoglobin 13.6 g/dl (14.0-18.0); Imm Gran Abs Auto 0.02 X10*3/uL (0.00-0.03); Imm Gran Pct Auto 0.4 % (0.0-0.4); Lymphocytes Absolute Auto 0.8 X10*3/uL (1.2-4.9); Mean Corpuscular HGB Conc 32.0 g/dl (31.0-36.0); Mean Corpuscular Hemoglobin 27.1 pg (27.0-33.0); Mean Corpuscular Volume 84.7 fL (80.0-98.0); NRBC Abs Auto 0.000 X10*3/uL (0.0-0.012); NRBC Pct Auto 0.0 /100WBC (0.0-0.2); Platelet Count 220 X10*3/uL (160-400); Red Blood Count 5.02 X10*6/uL (4.60-5.80); White Blood Count 4.8 X10*3/uL (4.8-10.8)
[2025-05-10 16:20] LABS: Hemoglobin A1C 219.6692 umol/L; Total Hemoglobin (HGBA1C) 3631.2190 umol/L
[2025-05-10 16:29] LABS: Alanine Aminotransferase 35 U/L (0-40); Albumin Level 4.6 g/dL (3.5-5.0); Alkaline Phosphatase 71 U/L (39-117); Amylase 85 U/L (28-100); Anion Gap 14 (12-20); Aspartate Amino Transferase 28 U/L (5-37); Blood Urea Nitrogen 23 mg/dL (9-16); Calcium 10.0 mg/dL (8.4-10.2); Carbon Dioxide 28 mmol/L (22-29); Chloride 102 mmol/L (96-108); Estimated Glomerular Filt Rate > 60; Lipase 35 U/L (8-78); Potassium 4.4 mmol/L (3.3-5.1); Sodium 140 mmol/L (135-145); Total Protein 9.1 g/dL (6.5-8.0)
== END 2025-05-10 11:33 | disposition home or self-care (01) ==
LOC: HO.HVNA 11:32
PROVIDERS: Registered Nurse; Visit Provider Internal Medicine
DX: E11.649 Type 2 diabetes mellitus with hypoglycemia without coma (principal); E11.621 Type 2 diabetes mellitus with foot ulcer; L97.509 Non-pressure chronic ulcer of other part of unspecified foot with unspecified severity; M86.9 Osteomyelitis, unspecified; R10.11 Right upper quadrant pain
CPT/HCPCS: 36415; 80053; 82150; 82550; 83036; 83690; 85025

== ENCOUNTER 2025-05-10 13:35 | Outpatient (REF) | payer MEDICARE, MEDICAID, SELFPAY | END 2025-05-10 13:36 | disposition home or self-care (01) | LOC: HO.HHCL 13:35 | PROVIDERS: PCP Registered Nurse; Visit Provider Registered Nurse | DX: Z13.89 Encounter for screening for other disorder (principal) ==

== ENCOUNTER 2025-05-17 12:45 | Outpatient (REF) | payer MEDICARE, MEDICAID, SELFPAY ==
[2025-05-17 12:49] LABS: MANUAL DIFF FLAG NO
[2025-05-17 12:53] LABS: Hematocrit 40.7 % (42.0-52.0); Hemoglobin 13.1 g/dl (14.0-18.0); Imm Gran Abs Auto 0.01 X10*3/uL (0.00-0.03); Imm Gran Pct Auto 0.3 % (0.0-0.4); Lymphocytes Absolute Auto 0.8 X10*3/uL (1.2-4.9); Mean Corpuscular HGB Conc 32.2 g/dl (31.0-36.0); Mean Corpuscular Hemoglobin 27.3 pg (27.0-33.0); Mean Corpuscular Volume 85.0 fL (80.0-98.0); NRBC Abs Auto 0.000 X10*3/uL (0.0-0.012); NRBC Pct Auto 0.0 /100WBC (0.0-0.2); Platelet Count 183 X10*3/uL (160-400); Red Blood Count 4.79 X10*6/uL (4.60-5.80); White Blood Count 3.9 X10*3/uL (4.8-10.8)
[2025-05-17 13:18] LABS: Alanine Aminotransferase 35 U/L (0-40); Albumin Level 4.5 g/dL (3.5-5.0); Alkaline Phosphatase 72 U/L (39-117); Anion Gap 14 (12-20); Aspartate Amino Transferase 29 U/L (5-37); Blood Urea Nitrogen 23 mg/dL (9-16); Calcium 9.7 mg/dL (8.4-10.2); Carbon Dioxide 27 mmol/L (22-29); Chloride 101 mmol/L (96-108); Estimated Glomerular Filt Rate > 60; Potassium 4.5 mmol/L (3.3-5.1); Sodium 137 mmol/L (135-145); Total Protein 8.7 g/dL (6.5-8.0)
--- OUTSIDE RECORDS SUMMARY | 2025-05-17 17:28 | XMS_ITS | Encounter Summary ---
Author Organization [facility] [place], Address [address] [place] [address] Phone Care Team Providers Care Rn Er Name Role Phone [facility] Primary Care Provider [phone] Encounter Details Date Type Department Care Team (Late Contact Info) Description 06/29/2024 Orders Only [facility] [address] [place] [address] Hank Cho PA [address] [place] [address] [place] [address] Chronic kidney disease, stage 2 [...] [facility] [address] [place] [address] Mick Badillo MD [address] [place] [address] [place] [address] documented as of this encounter Visit Diagnoses Diagnosis Chronic kidney disease, stage 2 (mild) Type 2 diabetes mellitus, not otherwise specified (HCC) Essential (primary) hypertension Microalbuminuria documented in this encounter Care Teams Rn Er Relationship Specialty Start Date End Date Maritza Alfonso [address] [place] [address] PCP - General 06/26/22 documented as of this encounter
--- OUTSIDE RECORDS SUMMARY | 2025-05-17 17:28 | XMS_ITS | Encounter Summary ---
Author Organization [facility] Address [address] [place] [address] Phone Care Team Providers Care Medical Safety Director Name Role Phone [facility] Primary Care Provider [phone] Encounter Details Date Type Department Care Team (Late Contact Info) Description 04/30/2025 Documentation Only [facility] [address] [place] [address] Radha Valentin [place] [address] [place] [phone] Social History Tobacco Use Types Packs/Day Years [...] [facility] [address] [place] [address] Mick Badillo MD [address] [place] [address] [place] [address] documented as of this encounter Visit Diagnoses Not on filedocumented in this encounter Care Teams Medical Safety Director Relationship Specialty Start Date End Date [facility] [address] [place] [address] PCP - General 06/26/22 documented as of this encounter
--- OUTSIDE RECORDS SUMMARY | 2025-05-17 17:28 | XMS_ITS | Encounter Summary ---
Author Organization [facility] [place], Address [address] [place] [address] Phone Care Team Providers Care Mini Bar Attendant Name Role Phone [facility] Primary Care Provider Encounter Details Date Type Department Care Team (Late Contact Info) Description 05/28/2022 Documentation Only [facility] [address] [place] [address] Hank Cho PA [address] [place] [address] [place] [address] Social History Tobacco Use Types [...] Visit [facility] [address] [facility] [place] [address] Mick Badillo MD [address] [place] [address] [place] [address] documented as of this encounter Visit Diagnoses Not on filedocumented in this encounter Care Teams Mini Bar Attendant Relationship Specialty Start Date End Date [facility] [address] [place] [phone] PCP - General 06/26/22 documented as of this encounter
--- OUTSIDE RECORDS SUMMARY | 2025-05-17 17:28 | XMS_ITS | Encounter Summary ---
Author Organization [facility] Address [address] [place] [address] Phone Care Team Providers Care Groundwater Programs Director Name Role Phone [facility] Primary Care Provider [phone] Encounter Details Date Type Department Care Team (Late Contact Info) Description 07/07/2024 Documentation Only [facility] [address] [place] [address] Diane Morrison [address] [place] [address] Social History Tobacco Use Types Packs/Day [...] [facility] [address] [place] [address] Mick Badillo MD [address] [place] [address] [place] [address] documented as of this encounter Visit Diagnoses Not on filedocumented in this encounter Care Teams Groundwater Programs Director Relationship Specialty Start Date End Date [facility] [address] [place] [address] [phone] PCP - General 06/26/22 documented as of this encounter
--- OUTSIDE RECORDS SUMMARY | 2025-05-17 17:28 | XMS_ITS | Encounter Summary ---
Author Organization [facility] Address [address] [place] [address] Phone Care Team Providers Care Semiconductor Equipment Technician Name Role Phone [facility] Primary Care Provider [phone] Encounter Details Date Type Department Care Team (Late Contact Info) Description 10/25/2023 Documentation Only [facility] [address] [place] [address] Diane Morrison [address] [place] [address] Social History Tobacco Use Types Packs/Day [...] [facility] [address] [place] [address] Mick Badillo MD [address] [place] [address] [place] [address] documented as of this encounter Visit Diagnoses Not on filedocumented in this encounter Care Teams Semiconductor Equipment Technician Relationship Specialty Start Date End Date [facility] [address] [place] [address] [phone] PCP - General 06/26/22 documented as of this encounter
--- OUTSIDE RECORDS SUMMARY | 2025-05-17 17:28 | XMS_ITS | Encounter Summary ---
Author Organization [facility] [place], Address [address] [place] [address] Phone Care Team Providers Care Program Coordinator For Residence Life Name Role Phone [facility] Primary Care Provider [phone] Encounter Details Date Type Department Care Team (Late Contact Info) Description 02/22/2023 Documentation Only [facility] [address] [place] [address] Hank Cho PA [address] [place] [address] [place] [address] Social History Tobacco Use Types [...] [address] [facility] [place] [address] Mick Badillo MD [address] [place] [address] [place] [address] documented as of this encounter Visit Diagnoses Not on filedocumented in this encounter Care Teams Program Coordinator For Residence Life Relationship Specialty Start Date End Date [facility] [address] [place] [address] PCP - General 06/26/22 documented as of this encounter
--- OUTSIDE RECORDS SUMMARY | 2025-05-17 17:28 | XMS_ITS | Encounter Summary ---
Author Organization [facility] [place], Address [address] [place] [address] Phone Care Team Providers Care Post Anesthesia Nurse Name Role Phone [facility] Primary Care Provider [phone] Encounter Details Date Type Department Care Team (Late Contact Info) Description 06/01/2022 Documentation Only [facility] [address] [place] [address] Hank Cho PA [address] [place] [address] [place] [address] Social History Tobacco Use Types [...] Visit [facility] [address] [facility] [place] [address] Mick Badillo MD [address] [place] [address] [place] [address] documented as of this encounter Visit Diagnoses Not on filedocumented in this encounter Care Teams Post Anesthesia Nurse Relationship Specialty Start Date End Date [facility] [address] [place] [phone] PCP - General 06/26/22 documented as of this encounter
--- OUTSIDE RECORDS SUMMARY | 2025-05-17 17:28 | XMS_ITS | Encounter Summary ---
Author Organization [facility] [place], Address [address] [place] [address] Phone Care Team Providers Care Furnace Installer Name Role Phone [facility] Primary Care Provider [phone] Encounter Details Date Type Department Care Team (Late Contact Info) Description 05/31/2022 Documentation Only [facility] [address] [place] [address] Hank Cho PA [address] [place] [address] [place] [address] Social History Tobacco Use Types [...] Visit [facility] [address] [place] [address] Mick Badillo MD [address] [place] [address] [place] [address] documented as of this encounter Visit Diagnoses Not on filedocumented in this encounter Care Teams Furnace Installer Relationship Specialty Start Date End Date [facility] [address] [place] [address] PCP - General 06/26/22 documented as of this encounter
--- OUTSIDE RECORDS SUMMARY | 2025-05-17 17:28 | XMS_ITS | Encounter Summary ---
Author Organization [facility] [place], Address [address] [place] [address] Phone Care Team Providers Care Farmer Diversified Crops Name Role Phone [facility] Primary Care Provider [phone] Encounter Details Date Type Department Care Team (Late Contact Info) Description 06/22/2022 Documentation Only [facility] [address] [place] [address] Hank Cho PA [address] [place] [address] [place] [address] Social History Tobacco Use Types [...] Visit [facility] [address] [facility] [place] [address] Mick Badillo MD [address] [place] [address] [place] [address] documented as of this encounter Visit Diagnoses Not on filedocumented in this encounter Care Teams Farmer Diversified Crops Relationship Specialty Start Date End Date [facility] [address] [place] [address] PCP - General 06/26/22 documented as of this encounter
--- OUTSIDE RECORDS SUMMARY | 2025-05-17 17:28 | XMS_ITS | Encounter Summary ---
Author Organization [facility] Address [address] [place] [address] Phone Care Team Providers Care Driver Helper Name Role Phone [facility] Primary Care Provider [phone] Encounter Details Date Type Department Care Team (Late Contact Info) Description 10/25/2023 Documentation Only [facility] [address] [place] [address] Diane Morrison [address] [place] [phone] Social History Tobacco Use Types Packs/Day [...] [facility] [address] [place] [address] Mick Badillo MD [address] [place] [address] [place] [address] documented as of this encounter Visit Diagnoses Not on filedocumented in this encounter Care Teams Driver Helper Relationship Specialty Start Date End Date [facility] [address] [place] [address] [phone] PCP - General 06/26/22 documented as of this encounter
--- OUTSIDE RECORDS SUMMARY | 2025-05-17 17:28 | XMS_ITS | Encounter Summary ---
Author Organization [facility] Address [address] [place] [address] Phone Care Team Providers Care International Logistics Manager Name Role Phone [facility] Primary Care Provider [phone] Encounter Details Date Type Department Care Team (Late Contact Info) Description 05/31/2022 Documentation Only [facility] [address] [place] [address] Alexander Zhou MD [address] [facility] [place] [address] Social History Tobacco Use Types [...] Visit [facility] [address] [place] [address] Mick Badillo MD [address] [place] [address] documented as of this encounter Visit Diagnoses Not on filedocumented in this encounter Care Teams International Logistics Manager Relationship Specialty Start Date End Date [facility] [address] [place] [address] PCP - General 06/26/22 documented as of this encounter
--- OUTSIDE RECORDS SUMMARY | 2025-05-17 17:28 | XMS_ITS | Encounter Summary ---
Author Organization [facility] [place], Address [address] [place] [address] Phone Care Team Providers Care Biomedical Equipment Support Specialist Name Role Phone [facility] Primary Care Provider [phone] Encounter Details Date Type Department Care Team (Late Contact Info) Description 02/25/2023 Documentation Only [facility] [address] [place] [address] Hank Cho PA [address] [place] [address] [place] [address] Social History Tobacco Use Types [...] Visit [facility] [address] [place] [address] Mick Badillo MD [address] [place] [address] [place] [address] documented as of this encounter Visit Diagnoses Not on filedocumented in this encounter Care Teams Biomedical Equipment Support Specialist Relationship Specialty Start Date End Date [facility] [address] [place] [address] PCP - General 06/26/22 documented as of this encounter
--- OUTSIDE RECORDS SUMMARY | 2025-05-17 17:28 | XMS_ITS | Encounter Summary ---
Author Organization [facility] [place], Address [address] [place] [address] Phone Care Team Providers Care Recycling Manager Name Role Phone [facility] Primary Care Provider [phone] Encounter Details Date Type Department Care Team (Late Contact Info) Description 02/26/2023 Documentation Only [facility] [address] [place] [address] Hank Cho PA [address] [place] [address] [place] [address] Social History Tobacco Use Types [...] Visit [facility] [address] [place] [address] Mick Badillo MD [address] [place] [address] [place] [address] documented as of this encounter Visit Diagnoses Not on filedocumented in this encounter Care Teams Recycling Manager Relationship Specialty Start Date End Date [facility] [address] [place] [address] PCP - General 06/26/22 documented as of this encounter
--- OUTSIDE RECORDS SUMMARY | 2025-05-17 17:28 | XMS_ITS | Encounter Summary ---
Author Organization [facility] [place], Address [address] [place] [address] Phone Care Team Providers Care Transportation Planner Name Role Phone [facility] Primary Care Provider Encounter Details Date Type Department Care Team (Late Contact Info) Description 09/02/2023 Orders Only [facility] [address] [place] [place] [address] Hank Cho PA [address] [place] [address] [place] [address] Chronic kidney disease, stage 2 [...] [facility] [address] [place] [address] Mick Badillo MD [address] [place] [address] [place] [address] documented as of this encounter Visit Diagnoses Diagnosis Chronic kidney disease, stage 2 (mild) Essential (primary) hypertension Type 2 diabetes mellitus, not otherwise specified (HCC) documented in this encounter Care Teams Transportation Planner Relationship Specialty Start Date End Date [facility] [address] [place] [address] PCP - General 06/26/22 documented as of this encounter
--- OUTSIDE RECORDS SUMMARY | 2025-05-17 17:29 | XMS_ITS | Encounter Summary ---
Author Organization [employer] Address [address] 7[address] [place] [address] Care Team Providers Care Enterprise Systems Engineer Name Role Phone [facility] OPERATOR Primary Care Provider [phone] Encounter Details Date Type Department Care Team ([facility] st Contact Info) Description 07/18/2023 Abstract [facility] MEDICINE [address] [place], [place] [phone] Mireya Khalil Social History Tobacco Use Types [...] Care Team (Late st Contact Info) Description 06/22/2025 11:00 AM EDT Office Visit [facility] ADULT DENTAL [address] [place] [address] Yecenia Tilley [address] [place] [address] 07/02/2025 11:00 AM EDT Office Visit [facility] ADULT DENTAL [address] [place] [address] Yecenia Tilley [address] [place] [address] documented as of this encounter Visit Diagnoses Not on filedocumented in this encounter Additional Health Concerns Assessment Noted Time PHQ-9 Depression Total Score: 4 04/03/20 23 10:08 AM EDT documented as of this encounter Care Teams Enterprise Systems Engineer Relationship Specialty Start Date End Date Maritza Alfonso FNP [address] [place] [address] PCP - General Family Medicine 05/24[facility]22 [facility] documented as of this encounter
--- OUTSIDE RECORDS SUMMARY | 2025-05-17 17:29 | XMS_ITS | Clinical Summary ---
Author Organization [facility] [place], Address [address] [place] [address] [place] [address] Phone Care Team Providers Care Tool Room Machinist Name Role Phone [facility] Primary Care Provider [phone] Allergies Active Allergy Reactions Criticality Noted Date [...] [facility] [address] [place] [address] Radha Valentin MA 04/26/2025 Documentation Only [facility] [address] [place] [address] Radha Valentin MA 03/24/2025 10:10 AM EDT Office Visit [facility] [address] [place] [address] Mick Badillo MD Renal disorder due to [...] Visit [facility] [place], [address] [facility] [place] [address] Mick Badillo MD [address] [place] [phone] Health Maintenance Due Date Last Done Comments [...] Name Priority Date/Time Associated Diagnosis Comments LAB RETAIL DELIVERY DRIVER Routine 01/29/2018 12:00 AM EDT from Last 3 Months or Most Recently Relevant to Health Maintenance Results * Lab Supervisor Customer Records Division (01/29/2018 12:00 AM EDT) Hemoglobin A1C 7.8 % [facility] 01/29/2018 us [facility] Conversion LAB [id number] LICITED RESULTS Final Result [facility] from Last 3 Months or Most Recently Relevant to Health Maintenance [place] [address] [place] [id number] Care Teams Tool Room Machinist Relationship Specialty Start Date End Date [facility] [address] [facility] [place] [address] PCP - General 06/26/22
--- OUTSIDE RECORDS SUMMARY | 2025-05-17 17:29 | XMS_ITS | Encounter Summary ---
Author Organization [employer] Address [address] [facility] 7t [place] [address] Care Team Providers Care Internal Control Manager Name Role Phone [facility] Primary Care Provider [phone] Reason for Visit * Reason Onset Date Comments pcp order 05/12/2025 Encounter Details Date Type Department Care Team ([facility] Contact Info) Description 05/12/2025 Telephone [facility] MEDICINE [address] [place], [place] [phone] [facility] [address] [place] [address] pcp order Social History Tobacco Use Types Packs/Day Years [...] encounter Miscellaneous Notes * Telephone Encounter - Chuy Garcia - 05/12/2025 11:06 AM EDT Tc from Natalie at [facility] stating pt needs an increase of STRUCTURAL ARCHITECT as pt is still wheelchair level ofcare too , a pcp order is needed to be faxed too [phone] Contact Natalie at [phone] documented in this encounter Plan of Treatment Upcoming Encounters Date Type Department Care Team (Late st Contact Info) Description 06/22/2025 11:00 AM EDT Office Visit [facility] ADULT DENTAL [address] [place] [address] Jarek, Yecenia [address] [place] [address] 07/02/2025 11:00 AM EDT Office Visit [facility] ADULT DENTAL [address] [place] [address] Jarek, Yecenia [address] [place] [address] documented as of this encounter Visit Diagnoses Not on filedocumented in this encounter Additional Health Concerns Assessment Noted Time PHQ-9 Depression Total Score: 0 12/26/19 1:02 PM EDT documented as of this encounter Care Teams Internal Control Manager Relationship Specialty Start Date End Date KadenMaritza moore FNP [address] [place] [address] [place] [address] PCP - General Family Medicine 05/24/22 [facility] MEYERS 10/21/24 documented as of this encounter
--- OUTSIDE RECORDS SUMMARY | 2025-05-17 17:29 | XMS_ITS | Encounter Summary ---
Author Organization [employer] Address [address] [facility] 7t [place] [address] Care Team Providers Care Frame Sample And Pattern Supervisor Name Role Phone [facility] Primary Care Provider [phone] Reason for Visit * Reason Onset Date Comments Referral 07/03/2024 Encounter Details Date Type Department Care Team ([facility] Contact Info) Description 07/03/2024 Telephone [facility] MEDICINE [address] [place], [place] [phone] [facility] 230 [place] [address] Referral Social History Tobacco Use Types Packs/Day [...] Y/N: Yes Provider name or facility name: [facility] Escort needed: Y/N: No Do you have a wheelchair: Y/N: No If yes- Manual or electric: Visits: (amount of visits) ( x monthly, weekly, daily) documented in this encounter Plan of Treatment Upcoming Encounters Date Type Department Care Team (Late st Contact Info) Description 06/22/2025 11:00 AM EDT Office Visit [facility] ADULT DENTAL [address] [place] [address] Yecenia Tilley [address] [place] [address] 07/02/2025 11:00 AM EDT Office Visit [facility] ADULT DENTAL [address] [place] [address] Yecenia Tilley [address] [place] [address] documented as of this encounter Visit Diagnoses Not on filedocumented in this encounter Additional Health Concerns Assessment Noted Time PHQ-9 Depression Total Score: 0 01/15/20 24 9:49 AM EDT documented as of this encounter Care Teams Frame Sample And Pattern Supervisor Relationship Specialty Start Date End Date Maritza Alfonso FNP [address] [facility] [place] [address] PCP - General Family Medicine 05/24/22 [facility] 10/21/24 documented as of this encounter
--- OUTSIDE RECORDS SUMMARY | 2025-05-17 17:29 | XMS_ITS | Encounter Summary ---
Author Organization [employer] Address [address] [facility] 7t [place] [address] Care Team Providers Care Fractionation Plant Supervisor Name Role Phone [facility] Primary Care Provider [phone] Reason for Visit * Reason Onset Date Comments Stable Lab Letter 05/12/2025 Encounter Details Date Type Department Care Team ([facility] st Contact Info) Description 05/12/2025 Telephone [facility] MEDICINE [address] [place], [place] [phone] [facility] 230 [place] [address] Stable Lab Letter Social History Tobacco Use Types Packs/Day Years [...] encounter Miscellaneous Notes * Telephone Encounter - Alberta Sahu - 05/12/2025 2:43 PM EDT Mailed stable lab letter. documented in this encounter Plan of Treatment Upcoming Encounters Date Type Department Care Team (Late st Contact Info) Description 06/22/2025 11:00 AM EDT Office Visit [facility] ADULT DENTAL [address] [place] [address] Yecenia Tilley [address] [place] [address] 07/02/2025 11:00 AM EDT Office Visit [facility] ADULT DENTAL [address] [place] [address] Yecenia Tilley [address] [place] [address] documented as of this encounter Visit Diagnoses Not on filedocumented in this encounter Additional Health Concerns Assessment Noted Time PHQ-9 Depression Total Score: 0 12/26/19 25 1:02 PM EDT documented as of this encounter Care Teams Fractionation Plant Supervisor Relationship Specialty Start Date End Date Maritza AlfonsoIVONNE [address] [facility] [place] [address] PCP - General Family Medicine 05/24/22 [facility] MEYERS 10/21/24 documented as of this encounter
--- OUTSIDE RECORDS SUMMARY | 2025-05-17 17:29 | XMS_ITS | Encounter Summary ---
Author Organization [employer] Address [address] 7t [place] [address] Care Team Providers Care Orthoptist Name Role Phone [facility] Primary Care Provider Encounter Details Date Type Department Care Team (Latest Contact Info) Description 05/12/2025 Results Follow-Up [facility] [address] [place] [address] [facility] [address] [place] [address] Comprehensive Metabolic Panel, Lipase, Amylase Social History Tobacco Use Types Packs/Day Years [...] Description 06/22/2025 11:00 AM EDT Office Visit [facility] ADULT DENTAL [address] [place] [address] Charly Tilleyaris [address] [place] [address] 07/02/2025 11:00 AM EDT Office Visit [facility] ADULT DENTAL [address] [place] [address] Yecenia Tilley [address] [place] [address] documented as of this encounter Visit Diagnoses Not on filedocumented in this encounter Additional Health Concerns Assessment Noted Time PHQ-9 Depression Total Score: 0 12/26/19 25 1:02 PM EDT documented as of this encounter Care Teams Orthoptist Relationship Specialty Start Date End Date Maritza Alfonso FNP [address] [place] [address] PCP - General Family Medicine 05/24/22 [facility] 2/19/25 documented as of this encounter
--- OUTSIDE RECORDS SUMMARY | 2025-05-17 17:29 | XMS_ITS | Encounter Summary ---
Author Organization [employer] Address [address] 7[address] [place] [address] Care Team Providers Care Circulating Nurse Name Role Phone [facility] Primary Care Provider Encounter Details Date Type Department Care Team ([facility] st Contact Info) Description 07/29/2023 Orders Only [facility] MEDICINE [address] [place], [place] [phone] [facility] [address] [place] [address] Neoplasm of uncertain behavior (Primary Dx) Social [...] Description 06/22/2025 11:00 AM EDT Office Visit [facility] ADULT DENTAL [address] [place] [address] Charly Tilleyaris [address] [place] [address] 07/02/2025 11:00 AM EDT Office Visit [facility] ADULT DENTAL [address] [place] [address] Yecenia Tilley [address] [place] [address] documented as of this encounter Visit Diagnoses Diagnosis 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
--- OUTSIDE RECORDS SUMMARY | 2025-05-17 17:29 | XMS_ITS | Clinical Summary ---
Author Organization [employer] Address [address] [place] [address] Care Team Providers Care Portable Track Crew Chief Name Role Phone [facility] Primary Care Provider [phone] Allergies Active Allergy Reactions Criticality Noted Date Comments Lisinopril Angioedema 05/11/2025 Penicillins 12/24/2024 Piperacillin-Tazobactam In Dex Unknown 05/15 [...] with long-term current use of insulin ([facility]) TEST BLOOD SUGAR 4 TIMES A DAY 100 each 11 04/09/20 23 Active metFORMIN XR (Glucophage-XR) 500 MG 24 hr tabletIndicatio ns:Type 2 diabetes mellitus with hypoglycemia without coma, without long-term current use of insulin ([facility]) Take 1 tablet (500 mg) by [...] MORNING 90 tablet 1 09/29/19 25 Active D3 Super Strength 50 MCG (1999 UT) capsule TAKE 1 CAPSULE BY MOUTH EVERY MORNING 90 capsule 09/29/19 25 Active empagliflozin (Jardiance) 25 MGIndications:T ype 2 diabetes mellitus with hyperglycemia, without long-term current use of insulin ([facility]) Take 1 tablet (25 mg) by mouth Once per day. 30 tablet 10/07/19 25 026 Active Alcohol Swabs (Alcohol Prep) padsIndications :Type 2 diabetes mellitus with hyperglycemia, without long-term current use of insulin ([facility]) Use one pad each to prep skin prior to injection as directed 100 each 10/26/19 25 Active ondansetron (Zofran) 4 MG tabletIndicatio ns:Nausea Take 1 tablet (4 mg) by mouth every 8 (eight) hours if needed for nausea or vomiting. 30 tablet 2 10/26/19 25 Active glucose blood (FREESTYLE LITE) test stripIndication s:Type 2 diabetes mellitus with hyperglycemia, with long-term current use of insulin ([facility]) TEST BLOOD SUGAR ONCE DAILY 100 strip 10/30/19 25 Active Blood Glucose Monitoring Suppl (GNP Easy Touch Glucose Meter) deviceIndicatio ns:Type 2 diabetes mellitus with hyperglycemia, without long-term current use of insulin ([facility]) USE TO TEST BLOOD SUGAR ONCE A DAY 1 each 11/03/19 25 Active chlorhexidine (Peridex) 0.12 % solution Swish 15 mL morning and night for 1 minute. Spit, do not swallow. Do not eat or drink for 30 minutes following use. 473 mL 12/25/19 25 Active cefepime (Maxipime) 2 g injection Infuse 2 g into a venous catheter every 8 (eight) hours. 04/07/20 025 Active DAPTOmycin (Cubicin) 500 MG injection Infuse 450 mg into a venous catheter Once per day. 04/07/20 25 025 Active hydroCHLOROthia zide (HYDRODiuril) 25 MG tablet Take 12.5 mg by mouth Once per day. 04/07/20 25 Active isosorbide mononitrate ER (Imdur) 30 MG 24 hr tablet Take 1 tablet by mouth Once per day. 12/01/19 20 Active SITagliptin (Januvia) 100 MG tabletIndicatio ns:Type 2 diabetes mellitus with hyperglycemia, without long-term current use of insulin (CMS/[facility]) Take 1 tablet (100 mg) by mouth Once per day. 30 tablet 11 05/10/20 25 026 Active glucose 4 g chewable tabletIndicatio ns:Type 2 diabetes mellitus with hyperglycemia, without long-term current use of insulin (CMS/[facility]) Chew 4 tablets (16 g) if needed for low blood sugar. 50 tablet 12 05/11/20 026 Active Dulaglutide (Trulicity) 4.5 MG/0.5ML solution auto-injectorIn dications:Type 2 diabetes mellitus with hyperglycemia, without long-term current use of insulin (CMS/[facility]) Inject 4.5 mg under the skin 1 (one) time per week. 2 mL 3 12/26/19 025 Discontinued Active Problems Problem Noted Date [...] Declines PSA: 04/2023 Vision Exam: Referred to [facility] 04/2023 Immunizations:Declines PCV 20 04/2023 Assessment & Plan (04/13/2023 12:48 PM EDT): Pt previously accepted cologuard for CRC screening. Today reports he no longer wants to complete screening. Reviewed risks of forgoing screening including delay in diagnosis and/or treatment of potential malignancy which may adversely impact quality of life and reduce life expectancy. Pt verbalizes understanding. Coronary arteriosclerosis 08/13/2022 Overview (04/03/2023): Folllowed by [facility] cardiology Dr. Morales 01/2023 Negative Echo. Negative stress test Leukopenia 03/26/2022 Overview (04/03/2023): Followed by hematology/oncology at [facility]. Last seen apporx 6 months ago. Reports [...] toe amputation Eye Exam: Referred back to [facility] optometry 04/2023 Statin: Yes ASA: Yes YASHIRA/ARB: [...] previously ordered labs. Will re order to [facility] lab today Essential (primary) hypertension 08/12/2012 Overview [...] doxycycline for 1 month. Completed treatment with [facility] wound care with resolution of wound now [...] Encounters Date Type Department Care Team Description 05/12/[address] [address] Maritza Alfonso FNP Stable Lab Letter 05/12/2025 Results Follow-Up [facility] [address] [place] [phone] Maritza Alfonso FNP Comprehensive Metabolic Panel, Lipase, Amylase 05/12/[address] [address] Maritza Alfonso FNP pcp order 05/10/2025 1:15 PM EDT Office Visit [address] [address] Maritza Alfonso FNP Type 2 diabetes mellitus with hyperglycemia, without long-term current use of insulin ([facility]) (Primary Dx); Essential (primary) hypertension; Osteomyelitis of left foot, unspecified type ([facility]) 05/10/2025 Travel 05/07/[address] [address] Maritza Alfonso FNP Chart Prep 04/16/2025 Results Follow-Up [facility] [address] [place] [phone] Royer Doyle MD POCT urinalysis dipstick manually resulted, Culture, Urine, Routine 04/16/[address] [address] Maritza Alfonso FNP FYI 04/14/2025 3:00 PM EDT Office Visit [facility] [address] [place] [phone] Royer Doyle MD Abnormal urine odor (Primary Dx); Osteomyelitis of left foot, unspecified type ([facility]); UTI symptoms; Essential (primary) hypertension 04/14/2025 Orders Only [facility] [address] [place] [phone] Martiza Alfonso [facility] Type 2 diabetes mellitus with hypoglycemia without coma, without long-term current use of insulin ([facility]) (Primary Dx); Osteomyelitis of left foot, unspecified type ([facility]) 04/14/2025 Telephone [facility] [address] [address] Maritza Alfonso FNP 04/13/[address] [address] Maritza Alfonso FNP verbal orders; Call Back Request 04/08/[address] [address] Maritza Alfonso FNP Nurse Triage 04/08/[address] [address] Maritza Alfonso FNP HDF appointment 04/08/2025 Patient Outreach [address] [address] Maritza Alfonso FNP Transition Of Care (Tcm) (HDF unscheduled) 03/29/2025 11:00 AM EDT Office Visit [facility] [address] [place] [id number] Yecenia Tilley Dental calculus (Primary Dx); Periodontal disease; Missing teeth, acquired; Extruded tooth; Stage 3 grade B generalized periodontitis per AAP/EFP 2017 classification 02/26/2025 Orders Only [address] [address] Maritza Alfonso FNP from Last 3 Months Immunizations Immunization Administration [...] Sign Reading Time Taken Comments Blood Pressure 130/80 05/10/2025 1:00 PM EDT Pulse 69 05/10/2025 1:00 PM EDT Temperature 36.2 C (97.2 F) 05/10/2025 1:00 PM EDT Respiratory Rate 14 05/10/2025 1:00 PM EDT Oxygen Saturation 97% 04/14/2025 2:40 PM EDT Inhaled Oxygen Concentration - - Weight 72 kg (158 lb 12.8 oz) 05/10/2025 1:00 PM EDT Height 185.4 cm (6' 1 ) 05/10/2025 1:00 PM EDT Body Mass Index 20.95 05/10/2025 1:00 PM EDT Plan of Treatment Upcoming Encounters Date Type Department Care Team (Late st Contact Info) Description 06/22/2025 11:00 AM EDT Office Visit [facility] [address] [place] [address] Charly Tilleyaris [address] [place] [address] 07/02/2025 11:00 AM EDT Office Visit [facility] [address] [place] [address] Charly Tilleyaris [address] [place] [address] Health Maintenance Due Date Last Done Comments CT Colonography 1960 FIT DNA/Cologuard 1960 FIT 1960 FOBT 1960 Sigmoidoscopy 1960 Disability Screening 1960 Alcohol/Substance Use Screening 1972 Pneumococcal Vaccine: 50+ Years (2 of 2 - PCV) 06/19/2015 06/19/2014, 05/15/2012 RSV Patients and Patients Aged 60 years or older (1 - Risk 60-74 years 1-dose series) 2020 Colonoscopy 12/29/2023 12/28/2013 Colorectal Cancer Screening 12/29/2023 Diabetes: Foot Exam 01/14/2025 01/15/2024, 01/15/2024, 01/15/2024, Additional history exists COVID-19 Vaccine (3 - 2024- season) 2025 02/13/2021, 01/16/2021 Influenza Vaccine (#1) 2025 , 07/29/2023, 07/22/2021, Additional history exists Eye Exam 07/08/2025 07/08/2024 Diabetes: Hemoglobin A1C 08/09/2025 025, 05/10/2025, 12/25/2024, Additional history exists Dental Oral Exam 09/30/2025 03/29/2025 Dental Prophylaxis 09/30/2025 03/29/2025 Diabetes: Urine Protein Screening 10/08/2025 10/08/2024, 04/17/2023, 11/21/2021, Additional history exists Lipid Panel 10/08/2025 10/08/2024, 02/01, 02/21/2023, Additional history exists SDOH Screening 10/12/2025 10/12/2024 Depression Screening 12/25/2025 12/25/2024, 12/26/19 Dental X-Ray: Bitewings 03/30/2026 03/29/2025 Tobacco Screening 05/11/2026 05/11/2025 Dental X-Ray: Full Mouth 12/26/2027 12/24/2024 DTaP/Tdap/Td [...] Associated Diagnosis Comments CREATINE KINASE, TOTAL Routine 05/10/2025 1:39 PM EDT Osteomyelitis of left foot, unspecified type (CMS/HCC) HEMOGLOBIN A1C Routine 05/10/2025 1:39 PM EDT Type 2 diabetes mellitus with hypoglycemia without coma, without long-term current use of insulin (CMS/HCC) CBC WITH AUTO DIFFERENTIAL Routine 05/10/2025 1:39 PM EDT Osteomyelitis of left foot, unspecified type (CMS/HCC) AMYLASE Routine 05/10/2025 1:39 PM EDT Right upper quadrant abdominal pain LIPASE Routine 05/10/2025 1:39 PM EDT Right upper quadrant abdominal pain COMPREHENSIVE METABOLIC PANEL Routine 05/10/2025 1:39 PM EDT Right upper quadrant abdominal pain POCT GLYCATED HEMOGLOBIN, TOTAL Routine 05/10/2025 1:36 PM EDT Type 2 diabetes mellitus with hyperglycemia, without long-term current use of insulin (CMS/HCC) POCT GLUCOSE Routine 05/10/2025 1:02 PM EDT Type 2 diabetes mellitus with hyperglycemia, without long-term current use of insulin (CMS/HCC) CULTURE, URINE, ROUTINE Routine 04/14/2025 3:23 PM [...] VIEWS LEFT Routine 02/27/2025 8:13 PM EDT PANORAMIC RADIOGRAPHIC IMAGE Routine 12/24/2024 11:30 [...] Maintenance Results * (ABNORMAL) CBC auto differential (05/10/2025 1:39 PM EDT) White Blood Count 4.8 4.8 - 10.8 X10*3/uL [facility] Red Blood Count 5.02 4.60 - 5.80 X10*6/uL [facility] Hemoglobin 13.6(L) 14.0 - 18.0 g/dl [facility] Hematocrit 42.5 42.0 - 52.0 % [facility] Mean Corpuscular Volume 84.7 80.0 - 98.0 fL [facility] Mean Corpuscular Hemoglobin 27.1 27.0 - 33.0 pg [facility] Mean Corpuscular HGB Conc 32.0 31.0 - 36.0 g/dl [facility] Red Cell Distribution Width 13.3 11.0 - 16.0 % [facility] Platelet Count 220 160 - 400 X10*3/uL [facility] Mean Platelet Volume 9.5 9.4 - 12.4 fL [facility] Neutrophils Percent Auto 73.1(H) 45 - 73 % [facility] Imm Gran Pct Auto 0.4 0.0 - 0.4 % [facility] Lymphocytes Percent Auto 16.8(L) 20 - 40 % [facility] Monocytes Percent Auto 7.0 2 - 11 % [facility] Eosinophils Percent Auto 1.9 0 - 4 % [facility] Basophils Percent Auto 0.8 0 - 2 % [facility] NRBC Pct Auto 0.0 0.0 - 0.2 /100WBC [facility] Neutrophils Absolute Auto 3.5 2.0 - 8.3 x10*3/uL [facility] Imm Gran Abs Auto 0.02 0.00 - 0.03 X10*3/uL [facility] Lymphocytes Absolute Auto 0.8(L) 1.2 - 4.9 X10*3/uL [facility] Monocytes Absolute Auto 0.3 0.1 - 1.2 X10*3/uL [facility] Eosinophils Absolute Auto 0.1 0.0 - 0.4 X10*3/uL [facility] Basophils Absolute Auto 0.0 0.0 - 0.2 X10*3/uL [facility] NRBC Abs Auto 0.000 0.0 - 0.012 X10*3/uL [facility] Blood Venous blood specimen / Unknown 05/10/2025 1:39 PM EDT 05/10/2025 4:02 PM EDT [facility] LAB BLOOD ORDERABLES Final Re sult [facility] [address] [place] [address] [phone] * Lipase (05/10/2025 1:39 PM EDT) Lipase 35 8 - 78 U/L [facility] Blood Venous blood specimen / Unknown 05/10/2025 1:39 PM EDT 05/10/2025 4:02 PM EDT [facility] LAB BLOOD ORDERABLES Final Re sult Performing Organization Address City/[facility]/ZIP Co de Phone Number [facility] [address] [place] [address] [phone] * (ABNORMAL) Hemoglobin A1c (05/10/2025 1:39 PM EDT) Hemoglobin A1c 7.7(H) <6.0 % [facility] Comment:Hemoglobin A1C Refer ence Range Adults: 4.8 - 6.0 % Non diabetic: < 6.0 % Goal: < 7.0 %Additional Action Suggested: > 8.0 %Note: Hemoglobin A1c results are invalid for patients with abnormal amounts of HbF. Blood transfusions may impact the HbA1c concentration in the patient sample. Estimated Average Glucose 174 mg/dL [facility] Comment:eAG = Estimated ave rage glucose which is %A1C expressed asaverage glucose, using the formula of the [id number]-[id number] Glucose study (ADAG), Diabetes Care, Vol.31,#8,Apr. 2007 Blood Venous blood specimen / Unknown 05/10/2025 1:39 PM EDT 05/10/2025 4:02 PM EDT [facility] LAB BLOOD ORDERABLES Final Re sult Performing Organization Address City/[facility]/ZIP Co de Phone Number [facility] [address] [place] [phone] * Creatine Kinase, Total (05/10/2025 1:39 PM EDT) Creatine Kinase Total 52 38 - 174 U/L [facility] Blood Venous blood specimen / Unknown 05/10/2025 1:39 PM EDT 05/10/2025 4:02 PM EDT [facility] LAB BLOOD ORDERABLES Final Re sult Performing Organization Address [facility]/ZIP Co de Phone Number [facility] [address] [place] [phone] [phone] * Amylase (05/10/2025 1:39 PM EDT) Amylase 85 28 - 100 U/L [facility] Blood Venous blood specimen / Unknown 05/10/2025 1:39 PM EDT 05/10/2025 4:02 PM EDT [facility] LAB BLOOD ORDERABLES Final Re sult Performing Organization Address [facility] Co de Phone Number [facility] [address] [place] [phone] * (ABNORMAL) Comprehensive Metabolic Panel (05/10/2025 1:39 PM EDT) Pathologist [facility] Sodium 140 135 - 145 mmol/L [facility] Potassium 4.4 3.3 - 5.1 mmol/L [facility] Chloride 102 96 - 108 mmol/L [facility] Carbon Dioxide 28 22 - 29 mmol/L [facility] Anion Gap 14 12 - 20 [facility] Urea Nitrogen (BUN) 23(H) 9 - 16 mg/dL [facility] Creatinine, Serum 0.97 0.5 - 1.4 mg/dL [facility] Estimated Glomerular Filt Rate >60 [facility] Comment:Chronic Kidney Disea se: Estimated GFR < 60 mL/min/1.04j1Gvhlqu Kidney Disease: Estimated GFR < 15 mL/min/1.73m2 Glucose 131(H) 60 - 115 mg/dL [facility] Calcium 10.0 8.4 - 10.2 mg/dL [facility] Bilirubin, Total 0.2 0.0 - 1.0 mg/dL [facility] Aspartate Amino Transferase 28 5 - 37 U/L [facility] Alanine Aminotransferase 35 0 - 40 U/L [facility] Total Protein 9.1(H) 6.5 - 8.0 g/dL [facility] Albumin Level 4.6 3.5 - 5.0 g/dL [facility] Alkaline Phosphatase 71 39 - 117 U/L [facility] Blood Venous blood specimen / Unknown 05/10/2025 1:39 PM EDT 05/10/2025 4:02 PM EDT [facility] LAB BLOOD ORDERABLES Final Re sult [facility] [address] [place] [phone] * (ABNORMAL) POCT Hgb A1c (05/10/2025 1:36 PM EDT) Hemoglobin A1C 7.9(A) 4.0 - 5.7 % Blood 05/10/2025 1:36 PM EDT [facility] POINT OF CARE TEST ENTER/EDIT ORDERABLES Final Result * POCT Glucose (05/10/2025 1:02 PM EDT) Glucose Blood, POC 158 60 - 200 mg/dL Blood Capillary blood specimen / Unknown 05/10/2025 1:02 PM EDT [facility] POINT OF CARE TEST ENTER/EDIT ORDERABLES Final Result * Culture, Urine, Routine (04/14/2025 3:23 PM EDT) Urine Urine specimen obtained by clean catch procedure / Unknown 04/14/2025 3:23 PM EDT 04/14/2025 5:21 PM EDT Comment:UACC Narrative [facility] - 04/16/2025 8:51 AM EDT Urine Culture No growth. Specimen Source: Urine clean catch us Royer Doyle MD LAB MICROBIOLOGY - GENERAL ORDER CUAUHTEMOC Final Result [facility] [address] [place] [phone] * (ABNORMAL) POCT urinalysis dipstick manually [...] PM EDT Narrative 02/27/2025 8:15 PM EDT [address] [address] XRay Report Signed Patient: Néstor Chamorro MR#: [id number] : 1960 Acct:[id number] Age/Sex: 64 / M ADM Date: 02/26/25 Loc: [facility] Attending Dr: Maritza CORONADO Ordering Physician: Maritza Alfonso Date of Service: 02/26/25 Procedure(s): XR foot LT min 3V Accession Number(s): [id number] cc: Maritza Alfonso CLINICAL HISTORY: NON HEALING WOUND Left foot [...] in OV> 02/27/252014 DD/ 12 TD/TT: 02/27/252012 Scrum Coach: Procedure Note Donotuseinterpreter, Image - 02/27/2025 [place] [address] XRay Report Signed Patient: Néstor Chamorro LMR#: [id number] : 1960cct:[id number] Age/Sex: 64 / MADM Date: 02/26/25 Loc: [facility] Attending Dr: Maritza [facility] Ordering Physician: [place],[facility] Date of Service: 02/26/25 Procedure(s): XR foot LT min 3V Accession Number(s): [id number] cc: KadenMaritza moore [facility] CLINICAL HISTORY: NON HEALING WOUND Left [...] in OV> 02/27/252014 DD/ 12 TD/TT: 02/27/252012 Scrum Coach: [facility] IMG XR PROCEDURES Edited Resu lt - Final * Albumin, Random Urine W/Creatinine (10/08/2024 9:55 AM EST) Creatinine, Urine 98.17 mg/dL [facility] Microalbumin Urine 20.0 mg/L [facility] Microalbum Creatinine Ratio Ur 20.3 <30 ug/mg cr [facility] Comment:Albumin/Creatinine R atio Reference Ranges: Normal: < 30 ug/mg creatinine Microalbuminuria: 30 - 300 ug/mg creatinineClinical Albuminuria: > 300 ug/mg creatinine Urine 10/08/2024 9:55 AM EST 10/08/2024 10:32 AM EST [facility] LAB URINE ORDERABLES Final Re sult Performing Organization Address [facility]/ZIP Co de Phone Number [facility] [address] [place] [phone] * Lipid Panel, Standard (10/08/2024 9:55 AM EST) Triglycerides 51 <150 mg/dL [facility] Comment:Desirable Triglyceri de: less than 150 mg/dLBorderline High Triglyceride 150-199 mg/dLHigh Triglyceride: 200-499 mg/dLVery High Triglyceride: greater than or equal to 5OO mg/dL Cholesterol 153 <200 mg/dL [facility] Comment:Desirable Cholestero l: less than 200 mg/dLBorderline High Cholesterol: 200-239 mg/dLHigh Cholesterol: greater than 239 mg/dL LDL Cholesterol Calculated 91 <100 mg/dL [facility] Comment:Desirable LDL: less than 100 mg/dLNear Optimal/Above Optimal LDL: 110- 129 mg/dLBorderline High LDL: 130-159 mg/dLHigh LDL: 160-189 mg/dLVery High LDL: greater than or equal to 190 mg/dL HDL Cholesterol 52 >40 mg/dL [facility] Comment:Desirable HDL: great er than 40 mg/dL Note: This HDL assay may give artificially low results in patients with liver disease. Blood Venous blood specimen / Unknown 10/08/2024 9:55 AM EST 10/08/2024 9:55 AM EST [facility] LAB BLOOD ORDERABLES Final Re sult [facility] [address] [place] [address] [phone] * Referral to Optometry (07/08/2024) [facility] OUTPATIENT REFERRAL ORDERABLE S Final Result * HEPATITIS C AB W/REFL TO HCV RNA, QN, PCR (05/24/2022 11:27 AM EDT) HEPATITIS C ANTIBODY NON-REACT ALICIA NON-REACT ALICIA [facility] INDEX 0.06 <1.00 [facility] Comment: HCV antibody was non-reactive. There is no laboratory evidence of HCV infection. In most cases, no further action is required. However, if recent HCV exposure is suspected, a test for HCV RNA (test code 30573) is suggested. For additional information please refer to http://[employer].Exacaster/faq/TYH76f3 (This link is being provided for informational/ educational purposes only.) 05/24/2022 11:2 7 AM EDT [facility] HISTORICAL/NON ORDERABLE LABS Final Result Performing Organization Address City/[facility]/ZIP Co de Phone Number [facility] [address] * HIV 1/2 ANTIGEN/ANTIBODY,FOURTH GENERATION W/RFL (05/24/2022 11:27 AM EDT) HIV-1/2 ANTIGEN AND ANTIBODIES, 4TH GENERATION W/ REFLEX NON-REACT ALICIA NON-REACT ALICIA [facility] Comment: HIV-1 antigen and HIV-1/HIV-2 [...] purpose. For additional information please refer to http://education.[employer].Coolio/faq/OFK880 (This link is being provided for informational/ educational purposes only.) The performance of this assay has not been clinically validated in patients less than 2 years old. 05/24/2022 11:2 7 AM EDT [facility] LAB BLOOD ORDERABLES Final Re sult [facility] [address] * Colonoscopy (12/28/2013) Colonoscopy performed Historical Provider MD HEALTH MAINTENANCE Final Result from Last 3 Months or Most Recently Relevant to Health Maintenance Insurance [place]IC[place] [address] [place] [phone] [facility] MEDICA[place] STAND ADULT Care Teams Portable Track Crew Chief Relationship Specialty Start Date End Date Maritza Alfonso FNP [address] [place] [address] [place] [address] PCP - General Family Medicine 05/24/22 Chetan A 10/21/24
== END 2025-05-17 12:46 | disposition home or self-care (01) ==
LOC: HO.LNP 12:45
PROVIDERS: Visit Provider Internal Medicine
DX: E11.621 Type 2 diabetes mellitus with foot ulcer (principal); L97.509 Non-pressure chronic ulcer of other part of unspecified foot with unspecified severity
CPT/HCPCS: 80053; 82550; 85025

== ENCOUNTER 2025-05-28 12:26 | Outpatient (REF) | payer MEDICARE, MEDICAID, SELFPAY ==
[2025-05-28 12:47] LABS: MANUAL DIFF FLAG NO
[2025-05-28 12:56] LABS: Hematocrit 44.3 % (42.0-52.0); Hemoglobin 14.4 g/dl (14.0-18.0); Imm Gran Abs Auto 0.01 X10*3/uL (0.00-0.03); Imm Gran Pct Auto 0.2 % (0.0-0.4); Lymphocytes Absolute Auto 1.0 X10*3/uL (1.2-4.9); Mean Corpuscular HGB Conc 32.5 g/dl (31.0-36.0); Mean Corpuscular Hemoglobin 27.2 pg (27.0-33.0); Mean Corpuscular Volume 83.7 fL (80.0-98.0); NRBC Abs Auto 0.000 X10*3/uL (0.0-0.012); NRBC Pct Auto 0.0 /100WBC (0.0-0.2); Platelet Count 237 X10*3/uL (160-400); Red Blood Count 5.29 X10*6/uL (4.60-5.80); White Blood Count 4.2 X10*3/uL (4.8-10.8)
[2025-05-28 13:04] LABS: Alanine Aminotransferase 41 U/L (0-40); Albumin Level 4.9 g/dL (3.5-5.0); Alkaline Phosphatase 80 U/L (39-117); Anion Gap 14 (12-20); Aspartate Amino Transferase 21 U/L (5-37); Blood Urea Nitrogen 23 mg/dL (9-16); Calcium 10.3 mg/dL (8.4-10.2); Carbon Dioxide 29 mmol/L (22-29); Chloride 102 mmol/L (96-108); Estimated Glomerular Filt Rate 60; Potassium 5.0 mmol/L (3.3-5.1); Sodium 140 mmol/L (135-145); Total Protein 9.3 g/dL (6.5-8.0)
--- OUTSIDE RECORDS SUMMARY | 2025-05-28 14:03 | XMS_ITS | Encounter Summary ---
Author Organization [facility] [place], Address [address] [place] [address] Phone Care Team Providers Care Training And Development Officer Name Role Phone [facility] Primary Care Provider [phone] Encounter Details Date Type Department Care Team (Late Contact Info) Description 05/31/2022 Documentation Only [facility] [address] [place] [address] Hank Cho PA [address] [place] [address] [place] [address] Social History Tobacco Use Types [...] Visit [facility] [address] [place] [address] Mick Badillo MD [address] [place] [address] [place] [address] documented as of this encounter Visit Diagnoses Not on filedocumented in this encounter Care Teams Training And Development Officer Relationship Specialty Start Date End Date [facility] [address] [place] [address] PCP - General 06/26/22 documented as of this encounter
--- OUTSIDE RECORDS SUMMARY | 2025-05-28 14:03 | XMS_ITS | Encounter Summary ---
Author Organization [facility] Address [address] [place] [address] Phone Care Team Providers Care Global Safety Officer Name Role Phone [facility] Primary Care Provider [phone] Encounter Details Date Type Department Care Team (Late Contact Info) Description 10/25/2023 Documentation Only [facility] [address] [place] [address] Diane Morrison [address] [place] [phone] Social History Tobacco Use Types Packs/Day [...] [facility] [address] [place] [address] Mick Badillo MD [address] [place] [address] [place] [address] documented as of this encounter Visit Diagnoses Not on filedocumented in this encounter Care Teams Global Safety Officer Relationship Specialty Start Date End Date [facility] [address] [place] [phone] PCP - General 06/26/22 documented as of this encounter
--- OUTSIDE RECORDS SUMMARY | 2025-05-28 14:03 | XMS_ITS | Encounter Summary ---
Author Organization [facility] [place], Address [address] [place] [address] Phone Care Team Providers Care Sql Bi Developer Name Role Phone [facility] Primary Care Provider Encounter Details Date Type Department Care Team (Late Contact Info) Description 02/22/2023 Documentation Only [facility] [address] [place] [address] Hank Cho PA [address] [place] [address] [place] [address] Social History Tobacco Use Types [...] Visit [facility] [address] [facility] [place] [place] [address] Mick Badillo MD [address] [place] [address] [place] [address] documented as of this encounter Visit Diagnoses Not on filedocumented in this encounter Care Teams Sql Bi Developer Relationship Specialty Start Date End Date [facility] [address] [place] [address] PCP - General 06/26/22 documented as of this encounter
--- OUTSIDE RECORDS SUMMARY | 2025-05-28 14:03 | XMS_ITS | Encounter Summary ---
Author Organization [facility] [place], Address [address] [place] [address] Phone Care Team Providers Care Blast Furnace Supervisor Name Role Phone [facility] Primary Care Provider [phone] Encounter Details Date Type Department Care Team (Late Contact Info) Description 06/01/2022 Documentation Only [facility] [address] [place] [address] Hank Cho PA [address] [place] [address] [place] [address] Social History Tobacco Use Types [...] Visit [facility] [address] [place] [place] [address] Mick Badillo MD [address] [place] [address] [place] [address] documented as of this encounter Visit Diagnoses Not on filedocumented in this encounter Care Teams Blast Furnace Supervisor Relationship Specialty Start Date End Date [facility] [address] [place] [address] PCP - General 06/26/22 documented as of this encounter
--- OUTSIDE RECORDS SUMMARY | 2025-05-28 14:03 | XMS_ITS | Encounter Summary ---
Author Organization [employer] Address [address] [facility] 7t [place] [address] Care Team Providers Care Electrolytic De Scaler Name Role Phone [facility] Primary Care Provider [phone] Reason for Visit * Reason Onset Date Comments Referral 07/03/2024 Encounter Details Date Type Department Care Team ([facility] Contact Info) Description 07/03/2024 Telephone [facility] [address] [place], [place] [phone] [facility] [address] [place] [address] Referral Social History Tobacco Use Types Packs/Day [...] Provider name or facility name: [facility] Escort needed: Y/N: No Do you have a wheelchair: Y/N: No If yes- Manual or electric: Visits: (amount of visits) ( x monthly, weekly, daily) documented in this encounter Plan of Treatment Upcoming Encounters Date Type Department Care Team (Late st Contact Info) Description 06/07/2025 1:00 PM EDT Office Visit [facility] [address] [place] [address] Jaymie Nguyen MD [address] [place] [address] 06/22/2025 11:00 AM EDT Office Visit [facility] ADULT DENTAL [address] [place] [address] Yecenia Tilley [address] [place] [address] 07/02/2025 11:00 AM EDT Office Visit [facility] ADULT DENTAL [address] [place] [address] Yecenia Tilley [address] [place] [address] documented as of this encounter Visit Diagnoses Not on filedocumented in this encounter Additional Health Concerns Assessment Noted Time PHQ-9 Depression Total Score: 0 01/15/20 9:49 AM EDT documented as of this encounter Care Teams Electrolytic De Scaler Relationship Specialty Start Date End Date Maritza Alfonso FNP [address] [place] [address] PCP - General Family Medicine 05/24/22 Chetan AKERSA 10/21/24 documented as of this encounter
--- OUTSIDE RECORDS SUMMARY | 2025-05-28 14:03 | XMS_ITS | Encounter Summary ---
Author Organization [employer] Address [address] [facility] [address] 7t [place] [address] Care Team Providers Care Plastics Process Hand Name Role Phone [facility] Primary Care Provider [phone] Encounter Details Date Type Department Care Team ([facility] st Contact Info) Description 07/29/2023 Orders Only [facility] [address] [place], [place] [phone] [facility] [address] [place] [address] Neoplasm of uncertain behavior (Primary Dx) Social [...] Description 06/07/2025 1:00 PM EDT Office Visit [facility] [address] [place] [address] Jaymie Nguyen MD [address] [place] [address] 06/22/2025 11:00 AM EDT Office Visit [facility] ADULT DENTAL [address] [place] [address] Jarek, Yecenia 230 [place] [address] 07/02/2025 11:00 AM EDT Office Visit [facility] ADULT DENTAL [address] [place] [address] Jarek, Yecenia [address] [place] [address] documented as of this encounter Visit Diagnoses Diagnosis 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
--- OUTSIDE RECORDS SUMMARY | 2025-05-28 14:03 | XMS_ITS | Encounter Summary ---
Author Organization [facility] [place], Address [address] [place] [address] Phone Care Team Providers Care Blending Operator Name Role Phone [facility] Primary Care Provider [phone] Encounter Details Date Type Department Care Team (Late Contact Info) Description 06/29/2024 Orders Only [facility] [address] [facility] [place] [address] Hank Cho PA [address] [place] [address] [place] [address] Chronic kidney disease, stage 2 [...] Visit [facility] [address] [place] [address] Mick Badillo MD [address] [place] [address] [place] [address] documented as of this encounter Visit Diagnoses Diagnosis Chronic kidney disease, stage 2 (mild) Type 2 diabetes mellitus, not otherwise specified (HCC) Essential (primary) hypertension Microalbuminuria documented in this encounter Care Teams Blending Operator Relationship Specialty Start Date End Date Maritza Alfonso 230 [place] [address] PCP - General 06/26/22 documented as of this encounter
--- OUTSIDE RECORDS SUMMARY | 2025-05-28 14:03 | XMS_ITS | Encounter Summary ---
Author Organization [facility] Address [address] [place] [address] Phone Care Team Providers Care Manager Cardiology Name Role Phone [facility] Primary Care Provider [phone] Encounter Details Date Type Department Care Team (Late Contact Info) Description 10/25/2023 Documentation Only [facility] [address] [place] [address] Diane Morrison [address] [place] [address] Social History Tobacco Use Types Packs/Day [...] [facility] [address] [place] [address] Mick Badillo MD [address] [place] [address] [place] [address] documented as of this encounter Visit Diagnoses Not on filedocumented in this encounter Care Teams Manager Cardiology Relationship Specialty Start Date End Date [facility] [address] [place] [id number] PCP - General 06/26/22 documented as of this encounter
--- OUTSIDE RECORDS SUMMARY | 2025-05-28 14:03 | XMS_ITS | Encounter Summary ---
Author Organization [facility] [place], Address [address] [place] [address] Phone Care Team Providers Care Automotive Parts Manager Name Role Phone [facility] Primary Care Provider [phone] Encounter Details Date Type Department Care Team (Late Contact Info) Description 06/22/2022 Documentation Only [facility] [address] [place] [address] Hank Cho PA [address] [place] [address] [place] [address] Social History Tobacco Use Types [...] Visit [facility] [address] [place] [address] Mick Badillo MD [address] [place] [address] [place] [address] documented as of this encounter Visit Diagnoses Not on filedocumented in this encounter Care Teams Automotive Parts Manager Relationship Specialty Start Date End Date [facility] [address] [place] [address] PCP - General 06/26/22 documented as of this encounter
--- OUTSIDE RECORDS SUMMARY | 2025-05-28 14:03 | XMS_ITS | Encounter Summary ---
Author Organization [facility] [place], Address [address] [place] [address] Phone Care Team Providers Care Supervisor Lime Name Role Phone [facility] Primary Care Provider Encounter Details Date Type Department Care Team (Late Contact Info) Description 05/28/2022 Documentation Only [facility] [address] [place] [address] Hank Cho PA [address] [place] [address] [place] [address] Social History Tobacco Use Types [...] Center [address] [facility] [place] [address] Mick Badillo MD [address] [place] [address] [place] [address] documented as of this encounter Visit Diagnoses Not on filedocumented in this encounter Care Teams Supervisor Lime Relationship Specialty Start Date End Date [facility] [address] [place] [address] PCP - General 06/26/22 documented as of this encounter
--- OUTSIDE RECORDS SUMMARY | 2025-05-28 14:03 | XMS_ITS | Encounter Summary ---
Author Organization [employer] Address [address] [facility] [place] [facility] [address] 7t [place] [address] Care Team Providers Care Component Design Engineer Name Role Phone [place] [facility] Primary Care Provider [phone] Encounter Details Date Type Department Care Team ([facility] st Contact Info) Description 07/18/2023 Abstract [facility] [address] [place], [place] [phone] Mireya Khalil Social History Tobacco Use Types [...] Description 06/07/2025 1:00 PM EDT Office Visit [facility] [address] [place] [address] Jaymie Nguyen MD 230 [place] [address] 06/22/2025 11:00 AM EDT Office Visit [facility] ADULT DENTAL [address] [place] [address] Yecenia Tilley [address] [place] [address] 07/02/2025 11:00 AM EDT Office Visit [facility] ADULT DENTAL [address] [place] [address] Yecenia Tilley [address] [place] [address] documented as of this encounter Visit Diagnoses Not on filedocumented in this encounter Additional Health Concerns Assessment Noted Time PHQ-9 Depression Total Score: 4 04/03/20 23 10:08 AM EDT documented as of this encounter Care Teams Component Design Engineer Relationship Specialty Start Date End Date Maritza Alfonso FNP 230 [place] [address] PCP - General Family Medicine 05/24/22 [facility] 10/21/24 documented as of this encounter
--- OUTSIDE RECORDS SUMMARY | 2025-05-28 14:03 | XMS_ITS | Encounter Summary ---
Author Organization [facility] Address [address] [place] [address] Phone Care Team Providers Care Lugger Name Role Phone [facility] Primary Care Provider [phone] Encounter Details Date Type Department Care Team (Late Contact Info) Description 05/31/2022 Documentation Only [facility] [address] [address] Alexander Zhou MD [address] [facility] [place] [address] Social History Tobacco Use Types [...] Visit [facility] [address] [place] [address] Mick Badillo MD [address] [facility] [place] [address] documented as of this encounter Visit Diagnoses Not on filedocumented in this encounter Care Teams Lugger Relationship Specialty Start Date End Date [facility] [address] [place] [address] PCP - General 06/26/22 documented as of this encounter
--- OUTSIDE RECORDS SUMMARY | 2025-05-28 14:03 | XMS_ITS | Clinical Summary ---
Author Organization [facility] [place], Address [address] [place] [address] [place] [address] Phone Care Team Providers Care Shopper Insights Manager Name Role Phone [facility] Primary Care Provider [phone] Allergies Active Allergy Reactions Criticality Noted Date [...] [facility] [address] [place] [address] Radha Valentin MA 04/26/2025 Documentation Only [facility] [address] [place] [address] Radha Valentin MA 03/24/2025 10:10 AM EDT Office Visit [facility] [address] [place] [address] Mick Badillo MD Renal disorder due to [...] Visit [facility] [place], [address] [facility] [place] [address] Mick Badillo MD [address] [facility] [place] [phone] Health Maintenance Due Date Last Done Comments [...] Name Priority Date/Time Associated Diagnosis Comments LAB CREATIVE INTERN Routine 01/29/2018 12:00 AM EDT from Last 3 Months or Most Recently Relevant to Health Maintenance Results * Lab Plant Operations Engineer (01/29/2018 12:00 AM EDT) Hemoglobin A1C 7.8 % [facility] 01/29/2018 us [facility] Conversion LAB [id number] LICITED RESULTS Final Result [facility]CTMA from Last 3 Months or Most Recently Relevant to Health Maintenance [place] [address] [place] [id number] Care Teams Shopper Insights Manager Relationship Specialty Start Date End Date [facility] [address] [place] [address] PCP - General 06/26/22
--- OUTSIDE RECORDS SUMMARY | 2025-05-28 14:03 | XMS_ITS | Encounter Summary ---
Author Organization [facility] Address [address] [place] [address] Phone Care Team Providers Care Government Minister Name Role Phone [facility] Primary Care Provider [phone] Encounter Details Date Type Department Care Team (Late Contact Info) Description 04/30/2025 Documentation Only [facility] [address] [place] [address] Radha Valentin [place] [address] [place] [phone] Social History Tobacco Use Types Packs/Day Years [...] [facility] [address] [place] [address] Mick Badillo MD [address] [place] [address] [place] [address] documented as of this encounter Visit Diagnoses Not on filedocumented in this encounter Care Teams Government Minister Relationship Specialty Start Date End Date [place] [address] [place] [address] PCP - General 06/26/22 documented as of this encounter
--- OUTSIDE RECORDS SUMMARY | 2025-05-28 14:03 | XMS_ITS | Encounter Summary ---
Author Organization [employer] Address [address] [facility] 7t [place] [address] Care Team Providers Care Fur Finisher Tailor Name Role Phone [facility] Primary Care Provider [phone] Reason for Visit * Reason Onset Date Comments pcp order 05/12/2025 Encounter Details Date Type Department Care Team ([facility] Contact Info) Description 05/12/2025 Telephone [facility] MED[facility]INE [address] [place], [place] [phone] [facility] [address] [place] [address] pcp order Social History Tobacco Use Types [...] encounter Miscellaneous Notes * Telephone Encounter - Adeline Valente LPN - 05/25/2025 3:34 PM EDT Moriah Reza-completed letter to increase [employer] hours. Placed in providers folder for signature. * Telephone Encounter - Chuy Garcia - 05/12/2025 11:06 AM EDT Tc from [facility] stating pt needs an increase of [employer] as pt is still wheelchair level ofcare too , a pcp order is needed to be faxed too [phone] Contact Natalie jimenez [phone] documented in this encounter Plan of Treatment Upcoming Encounters Date Type Department Care Team ([facility] st Contact Info) Description 06/07/2025 1:00 PM EDT Office Visit [facility] MEDICINE [address] [place] [phone] Jaymie Nguyen MD [address] [place] [address] 06/22/2025 11:00 AM EDT Office Visit [facility] ADULT DENTAL [address], [place] [phone] Yecenia Tilley [address] [place] [address] 07/02/2025 11:00 AM EDT Office Visit [facility] ADULT DENTAL [address] [place] [phone] Yecenia Tilley 230 [facility] [place] [phone] documented as of this encounter Visit Diagnoses Not on filedocumented in this encounter Additional Health Concerns Assessment Noted Time PHQ-9 Depression Total Score: 0 12/26/19 1:02 PM EDT documented as of this encounter Care Teams Fur Finisher Tailor Relationship Specialty Start Date End Date [facility] FNP [address] [place] [address] PCP - General Family Medicine 05/24/22 Chetan MEYERS 10/21/24 documented as of this encounter
--- OUTSIDE RECORDS SUMMARY | 2025-05-28 14:03 | XMS_ITS | Encounter Summary ---
Author Organization [facility] [place], Address [address] [place] [address] Phone Care Team Providers Care Instructor Physical Education Name Role Phone [facility] Primary Care Provider Encounter Details Date Type Department Care Team (Late Contact Info) Description 02/26/2023 Documentation Only [facility] [address] [place] [address] Hank Cho PA [address] [place] [address] [place] [address] Social History Tobacco Use Types [...] Transplant Services Of [facility] [address] [facility] [place] [address] Mick Badillo MD [address] [place] [address] [place] [address] documented as of this encounter Visit Diagnoses Not on filedocumented in this encounter Care Teams Instructor Physical Education Relationship Specialty Start Date End Date [facility] [address] [place] [address] PCP - General 06/26/22 documented as of this encounter
--- OUTSIDE RECORDS SUMMARY | 2025-05-28 14:03 | XMS_ITS | Encounter Summary ---
Author Organization [facility] [place], Address [address] [place] [address] Phone Care Team Providers Care Casket Upholsterer Name Role Phone [facility] Primary Care Provider [phone] Encounter Details Date Type Department Care Team (Late Contact Info) Description 09/02/2023 Orders Only [facility] [address] [facility] [place] [address] Hank Cho PA [address] [place] [address] [place] [address] Chronic kidney disease, stage 2 [...] [facility] [address] [place] [address] Mick Badillo MD [address] [place] [address] [place] [address] documented as of this encounter Visit Diagnoses Diagnosis Chronic kidney disease, stage 2 (mild) Essential (primary) hypertension Type 2 diabetes mellitus, not otherwise specified (HCC) documented in this encounter Care Teams Casket Upholsterer Relationship Specialty Start Date End Date [facility] [address] [place] [address] PCP - General 06/26/22 documented as of this encounter
--- OUTSIDE RECORDS SUMMARY | 2025-05-28 14:03 | XMS_ITS | Encounter Summary ---
Author Organization [facility], Address [address] [place] [address] Phone Care Team Providers Care Dining Services Director Name Role Phone [facility] Primary Care Provider [phone] Encounter Details Date Type Department Care Team (Late Contact Info) Description 02/25/2023 Documentation Only [facility] [address] [place] [address] Hank Cho PA [address] [place] [address] [place] [address] Social History Tobacco Use Types [...] Visit [facility] [address] [address] Mick Badillo MD [address] [place] [address] [place] [address] documented as of this encounter Visit Diagnoses Not on filedocumented in this encounter Care Teams Dining Services Director Relationship Specialty Start Date End Date [facility] [address] [place] [phone] PCP - General 06/26/22 documented as of this encounter
--- OUTSIDE RECORDS SUMMARY | 2025-05-28 14:03 | XMS_ITS | Clinical Summary ---
Author Organization [employer] Address [address] [place] [address] Care Team Providers Care Early Childhood Teacher Name Role Phone [facility] Primary Care Provider [phone] Allergies Active Allergy Reactions Criticality Noted Date [...] time each day. Active TRUEplus Lancets 33G miscIndications: Type 2 diabetes mellitus with hyperglycemia, with long-term current use of insulin ([facility]) TEST BLOOD SUGAR 4 TIMES A DAY 100 each 04/09/20 23 Active metFORMIN XR (Glucophage-XR) 500 MG 24 hr tabletIndication s:Type 2 diabetes mellitus with hypoglycemia without coma, without long-term current use of insulin (CMS/[facility]) Take 1 tablet (500 mg) by mouth 2 times daily. 360 tablet 1 05/20/20 24 Active empagliflozin (Jardiance) 25 MGIndications:Ty pe 2 diabetes mellitus with hyperglycemia, without long-term current use of insulin (CMS/[facility]) Take 1 tablet (25 mg) by mouth Once per day. 30 tablet 11 10/07/19 25 026 Active Alcohol Swabs (Alcohol Prep) padsIndications: Type 2 diabetes mellitus with hyperglycemia, without long-term current use of insulin ([facility]) Use one pad each to prep skin prior to injection as directed 100 each 11 10/26/19 25 Active ondansetron (Zofran) 4 MG tabletIndication s:Nausea Take 1 tablet (4 mg) by mouth every 8 (eight) hours if needed for nausea or vomiting. 30 tablet 2 10/26/19 25 Active glucose blood (FREESTYLE LITE) test stripIndications :Type 2 diabetes mellitus with hyperglycemia, with long-term current use of insulin ([facility]) TEST BLOOD SUGAR ONCE DAILY 100 strip 10/30/19 25 Active Blood Glucose Monitoring Suppl (GNP Easy Touch Glucose Meter) deviceIndication s:Type 2 diabetes mellitus with hyperglycemia, without long-term current use of insulin ([facility]) USE TO TEST BLOOD SUGAR ONCE A DAY 1 each 11/03/19 25 Active chlorhexidine (Peridex) 0.12 % solution Swish 15 mL morning and night for 1 minute. Spit, do not swallow. Do not eat or drink for 30 minutes following use. 473 mL 12/25/19 25 Active hydroCHLOROthiaz aminta (HYDRODiuril) 25 MG tablet Take 12.5 mg by mouth Once per day. 04/07/20 25 Active isosorbide mononitrate ER (Imdur) 30 MG 24 hr tablet Take 1 tablet by mouth Once per day. 12/01/19 20 Active SITagliptin (Januvia) 100 MG tabletIndication s:Type 2 diabetes mellitus with hyperglycemia, without long-term current use of insulin ([facility]) Take 1 tablet (100 mg) by mouth Once per day. 30 tablet 05/10/20 25 026 Active glucose 4 g chewable tabletIndication s:Type 2 diabetes mellitus with hyperglycemia, without long-term current use of insulin ([facility]) Chew 4 tablets (16 g) if needed for low blood sugar. 50 tablet 12 05/11/20 25 026 Active Aspirin Low Dose 81 MG EC tablet TAKE 1 TABLET BY MOUTH EVERY MORNING 90 tablet 1 05/19/20 25 Active D3 Super Strength 50 MCG (2000 UT) capsule TAKE 1 CAPSULE BY MOUTH EVERY MORNING 90 capsule 05/19/20 25 Active metoprolol succinate XL (Toprol-XL) 50 MG 24 hr tablet TAKE 1 TABLET BY MOUTH EVERY MORNING 90 tablet 1 09/17/20 25 Active metoprolol succinate XL (Toprol-XL) 50 MG 24 hr tablet TAKE 1 TABLET BY MOUTH EVERY MORNING 90 tablet 09/29/19 025 Discontinued Aspirin Low Dose 81 MG EC tablet TAKE 1 TABLET BY MOUTH EVERY MORNING 90 tablet 09/29/19 025 Discontinued D3 Super Strength 50 MCG (2000 UT) capsule TAKE 1 CAPSULE BY MOUTH EVERY MORNING 90 capsule 09/29/19 025 Discontinued Dulaglutide (Trulicity) 4.5 MG/0.5ML solution auto-injectorInd ications:Type 2 diabetes mellitus with hyperglycemia, without long-term current use of insulin ([facility]) Inject 4.5 mg under the skin 1 (one) time per week. 2 mL 3 12/26/19 025 Discontinued cefepime (Maxipime) 2 g injection Infuse 2 g into a venous catheter every 8 (eight) hours. 04/07/20 025 DAPTOmycin (Cubicin) 500 MG injection Infuse 450 mg into a venous catheter Once per day. 04/07/20 025 Active Problems Problem Noted Date Diagnosed Date [...] Declines PSA: 04/2023 Vision Exam: Referred to [facility] 04/2023 Immunizations:Declines PCV 20 04/2023 Assessment & Plan (04/13/2023 12:48 PM EDT): Pt previously accepted cologuard for CRC screening. Today reports he no longer wants to complete screening. Reviewed risks of forgoing screening including delay in diagnosis and/or treatment of potential malignancy which may adversely impact quality of life and reduce life expectancy. Pt verbalizes understanding. Coronary arteriosclerosis 08/13/2022 Overview (04/03/2023): Folllowed by [facility] cardiology Dr. Morales 01/2023 Negative Echo. Negative stress test Leukopenia 03/26/2022 Overview (04/03/2023): Followed by hematology/oncology at [facility]. Last seen apporx 6 months ago. Reports [...] toe amputation Eye Exam: Referred back to [facility] optometry 04/2023 Statin: Yes ASA: Yes YASHIRA/ARB: [...] previously ordered labs. Will re order to [facility] lab today Essential (primary) hypertension 08/12/2012 Overview [...] doxycycline for 1 month. Completed treatment with [facility] wound care with resolution of wound now [...] Encounters Date Type Department Care Team Description 05/28/2025 Orders Only GENERIC EXTERNAL DATA DEPARTMENT Provider, Generic External Data 05/25/2025 Patient Outreach [facility] [address] [place] [address] [place] [facility] Transition Of Care (Tcm) (HDF scheduled) 05/25/[address] [address] [place] Maritza [facility] Hospital Follow-up 05/19/[address] [address] [place] [facility] 05/12/[address] [address] [facility] Maritza [facility] Stable Lab Letter 05/12/2025 Results Follow-Up [facility] [address] [place] [address] Maritza Alfonso [facility] Comprehensive Metabolic Panel, Lipase, Amylase 05/12/[address] [address] [place] [facility] pcp order 05/10/2025 1:15 PM EDT Office Visit [facility] [address] [place] [address] Maritza Alfonso [facility] Type 2 diabetes mellitus with hyperglycemia, without long-term current use of insulin (CMS/[facility]) (Primary Dx); Essential (primary) hypertension; Osteomyelitis of left foot, unspecified type (CMS/HCC) 05/10/2025 Travel 05/07/[address] [address] Maritza Alfonso FNP Chart Prep 04/16/2025 Results Follow-Up [facility] [address] [place] [phone] Royer Doyle MD POCT urinalysis dipstick manually resulted, Culture, Urine, Routine 04/16/[address] [address] Maritza Alfonso FNP FYI 04/14/2025 3:00 PM EDT Office Visit [facility] [address] [address] Royer Doyle MD Abnormal urine odor (Primary Dx); Osteomyelitis of left foot, unspecified type (CMS/HCC); UTI symptoms; Essential (primary) hypertension 04/14/2025 Orders Only [facility] [address] [address] Maritza Alfonso FNP Type 2 diabetes mellitus with hypoglycemia without coma, without long-term current use of insulin (CMS/[facility]) (Primary Dx); Osteomyelitis of left foot, unspecified type ([facility]/HCC) 04/14/2025 Telephone [facility] [address] [place] [address] Maritza Alfonso FNP 04/13/[address] [address] Maritza Alfonso FNP verbal orders; Call Back Request 04/08/[address] [address] Maritza Alfonso FNP Nurse Triage 04/08/[address] [address] Maritza Alfonso FNP HDF appointment 04/08/2025 Patient Outreach [facility] [address] [place] [address] [facility] Transition Of Care (Tcm) (HDF unscheduled) 03/29/2025 11:00 AM EDT Office Visit [facility] [address] [place] [address] Yecenia Tilley Dental calculus (Primary Dx); Periodontal disease; Missing teeth, acquired; Extruded tooth; Stage 3 grade B generalized periodontitis per AAP/EFP 2017 classification 02/26/2025 Orders Only [facility] [address] [place] [address] [facility] from Last 3 Months Immunizations Immunization Administration [...] Department Care Team (Late Contact Info) Description 06/07/2025 1:00 PM EDT Office Visit [facility] [address] [place] [address] Jaymie Nguyen MD [address] [place] [address] 06/22/2025 11:00 AM EDT Office Visit [facility] [address] [place] [address] Yecenia Tilley [address] [place] [address] 07/02/2025 11:00 AM EDT Office Visit [facility] [address] [place] [address] Charly Tilleyaris [address] [place] [address] Health Maintenance Due Date Last Done Comments [...] 01/15/2024, 01/15/2024, Additional history exists COVID-19 Vaccine ( - season) 2025 02/13/2021, 01/16/2021 Influenza Vaccine (#1) 2025 , 07/29/2023, 07/22/2021, Additional history exists Eye Exam 07/08/2025 07/08/2024 Diabetes: Hemoglobin A1C 08/09/20252 025, 05/10/2025, 12/25/2024, Additional history exists Dental [...] Associated Diagnosis Comments SED RATE BY MODIFIED WESTERGREN Routine 05/28/2025 12:45 PM EDT CBC WITH AUTO DIFFERENTIAL Routine 05/28/2025 12:45 PM EDT COMPREHENSIVE METABOLIC PANEL Routine 05/28/2025 12:45 PM EDT Osteomyelitis of left foot, unspecified type (CMS/HCC) CREATINE KINASE, TOTAL Routine 05/10/2025 1:39 PM [...] Maintenance Results * (ABNORMAL) CBC auto differential (05/28/2025 12:45 PM EDT) Only the most recent of2 resultswithin the time period is included. White Blood Count 4.2(L) 4.8 - 10.8 X10*3/uL [facility] Red Blood Count 5.29 4.60 - 5.80 X10*6/uL [facility] Hemoglobin 14.4 14.0 - 18.0 g/dl [facility] Hematocrit 44.3 42.0 - 52.0 % [facility] Mean Corpuscular Volume 83.7 80.0 - 98.0 fL [facility] Mean Corpuscular Hemoglobin 27.2 27.0 - 33.0 pg [facility] Mean Corpuscular HGB Conc 32.5 31.0 - 36.0 g/dl [facility] Red Cell Distribution Width 13.5 11.0 - 16.0 % [facility] Platelet Count 237 160 - 400 X10*3/uL [facility] Mean Platelet Volume 9.6 9.4 - 12.4 fL [facility] Neutrophils Percent Auto 64.0 45 - 73 % [facility] Imm Gran Pct Auto 0.2 0.0 - 0.4 % [facility] Lymphocytes Percent Auto 23.9 20 - 40 % [facility] Monocytes Percent Auto 9.5 2 - 11 % [facility] Eosinophils Percent Auto 1.9 0 - 4 % [facility] Basophils Percent Auto 0.5 0 - 2 % [facility] NRBC Pct Auto 0.0 0.0 - 0.2 /100WBC [facility] Neutrophils Absolute Auto 2.7 2.0 - 8.3 x10*3/uL [facility] Imm Gran Abs Auto 0.01 0.00 - 0.03 X10*3/uL [facility] Lymphocytes Absolute Auto 1.0(L) 1.2 - 4.9 X10*3/uL [facility] Monocytes Absolute Auto 0.4 0.1 - 1.2 X10*3/uL [facility] Eosinophils Absolute Auto 0.1 0.0 - 0.4 X10*3/uL [facility] Basophils Absolute Auto 0.0 0.0 - 0.2 X10*3/uL [facility] NRBC Abs Auto 0.000 0.0 - 0.012 X10*3/uL [facility] 05/28/2025 12:4 5 PM EDT 05/28/2025 12:45 PM EDT us Generic External Data Provider LAB BLOOD ORDERAB LES Final Result [facility] [address] [place] [address] [phone] * (ABNORMAL) Sed Rate by Modified Maycol (05/28/2025 12:45 PM EDT) Erythrocyte Sedimentation Rate 33(H) 0 - 15 MM/HR [facility] Comment:Patients with polycy themia and many hemoglobin abnormalitiesmay have depressed sed rates whereas patients with anemiamay have elevated sed rates. 05/28/2025 12:4 5 PM EDT 05/28/2025 12:45 PM EDT us Generic External Data Provider LAB BLOOD ORDERAB LES Final Result [facility] [address] [place] [address] [phone] * (ABNORMAL) Comprehensive Metabolic Panel (05/28/2025 12:45 PM EDT) Only the most recent of2 resultswithin the time period is included. Sodium 140 135 - 145 mmol/L [facility] Potassium 5.0 3.3 - 5.1 mmol/L [facility] Chloride 102 96 - 108 mmol/L [facility] Carbon Dioxide 29 22 - 29 mmol/L [facility] Anion Gap 14 12 - 20 [facility] Urea Nitrogen (BUN) 23(H) 9 - 16 mg/dL [facility] Creatinine, Serum 1.22 0.5 - 1.4 mg/dL [facility] Estimated Glomerular Filt Rate 60 [facility] Comment:Chronic Kidney Disea se: Estimated GFR < 60 mL/min/1.48x7Aiqemp Kidney Disease: Estimated GFR < 15 mL/min/1.73m2 Glucose 138(H) 60 - 115 mg/dL [facility] Calcium 10.3(H) 8.4 - 10.2 mg/dL [facility] Bilirubin, Total 0.3 0.0 - 1.0 mg/dL [facility] Aspartate Amino Transferase 21 5 - 37 U/L [facility] Alanine Aminotransferase 41(H) 0 - 40 U/L [facility] Total Protein 9.3(H) 6.5 - 8.0 g/dL [facility] Albumin Level 4.9 3.5 - 5.0 g/dL [facility] Alkaline Phosphatase 80 39 - 117 U/L [facility] Blood Venous blood specimen / Unknown 05/28/2025 12:45 PM EDT 05/28/2025 12:45 PM EDT [facility] LAB BLOOD ORDERABLES Final Re sult Performing Organization Address City/[facility]/ZIP Co de Phone Number [facility] [address] [place] [address] [phone] * Lipase (05/10/2025 1:39 PM EDT) Lipase 35 8 - 78 U/L [facility] Blood Venous blood specimen / Unknown 05/10/2025 1:39 PM EDT 05/10/2025 4:02 PM EDT [facility] LAB BLOOD ORDERABLES Final Re sult Performing Organization Address [facility] de Phone Number [facility] [address] [place] [phone] * (ABNORMAL) Hemoglobin A1c (05/10/2025 1:39 PM EDT) Hemoglobin A1c 7.7(H) <6.0 % [facility] Comment:Hemoglobin A1C Refer ence Range Adults: 4.8 - 6.0 % Non diabetic: < 6.0 % Goal: < 7.0 %Additional Action Suggested: > 8.0 %Note: Hemoglobin A1c results are invalid for patients with abnormal amounts of HbF. Blood transfusions may impact the HbA1c concentration in the patient sample. Estimated Average Glucose 174 mg/dL [facility] Comment:eAG = Estimated ave rage glucose which is %A1C expressed asaverage glucose, using the formula of the [id number] Glucose study (ADAG), Diabetes Care, Vol.31,#8,Apr. 2007 Blood Venous blood specimen / Unknown 05/10/2025 1:39 PM EDT 05/10/2025 4:02 PM EDT [facility] LAB BLOOD ORDERABLES Final Re sult Performing Organization Address [facility]/ZIP Co de Phone Number [facility] [address] [place] [phone] * Creatine Kinase, Total (05/10/2025 1:39 PM EDT) Pathologist [facility] Creatine Kinase Total 52 38 - 174 U/L [facility] Blood Venous blood specimen / Unknown 05/10/2025 1:39 PM EDT 05/10/2025 4:02 PM EDT [facility] LAB BLOOD ORDERABLES Final Re sult [facility] [address] [place] [phone] * Amylase (05/10/2025 1:39 PM EDT) Pathologist [facility] Amylase 85 28 - 100 U/L [facility] Blood Venous blood specimen / Unknown 05/10/2025 1:39 PM EDT 05/10/2025 4:[address] [facility] LAB BLOOD ORDERABLES Final Re sult Performing Organization Address [facility]/ZIP Co de Phone Number [facility] [address] [place] [phone] * (ABNORMAL) POCT Hgb A1c (05/10/2025 1:36 PM EDT) Pathologist [facility] Hemoglobin A1C 7.9(A) 4.0 - 5.7 % Blood 05/10/2025 1:[address] [facility] POINT OF CARE TEST ENTER/EDIT ORDERABLES Final Result * POCT Glucose (05/10/2025 1:02 PM EDT) Pathologist [facility] Glucose Blood, POC 158 60 - 200 mg/dL Blood Capillary blood specimen / Unknown 05/10/2025 1:[address] [facility] POINT OF CARE TEST ENTER/EDIT ORDERABLES Final Result * Culture, Urine, Routine (04/14/2025 3:23 PM EDT) Urine Urine specimen obtained by clean catch procedure / Unknown 04/14/2025 3:23 PM EDT 04/14/2025 5:21 PM EDT Comment:UACC Narrative [facility] - 04/16/2025 8:51 AM EDT Urine Culture No growth. Specimen Source: Urine clean catch Royer Doyle MD LAB MICROBIOLOGY - GENERAL ORDER CUAUHTEMOC Final Result [facility] [address] [place] [phone] * (ABNORMAL) POCT urinalysis dipstick manually resulted [...] None Detected Urine 04/14/2025 2:46 PM EDT Royer Doyle MD POINT OF CARE TEST ENTER/EDIT OR DERABLES Final Result * XR Foot 3+ Views Left (02/27/2025 8:13 PM EDT) Anatomical Region Laterality Modality Lower Extremities, Foot Left Radiogra phic Imaging 02/27/2025 8:13 PM EDT Narrative 02/27/2025 8:15 PM EDT [address] [address] XRay Report Signed Patient: Néstor Chamorro MR#: [id number] : 1960 Acct:[id number] Age/Sex: 64 / M ADM Date: 02/26/25 Loc: [facility]OM[facility]ailXRRICHELLE Attending Dr: Maritza ROBBINSP Ordering Physician: Maritza Alfonso Date of Service: 02/26/25 Procedure(s): XR foot LT min 3V Accession Number(s): [id number] cc: [facility] CLINICAL HISTORY: NON HEALING WOUND Left foot [...] in OV> 02/27/252014 DD/ 12 TD/TT: 02/27/252012 Cigar Maker: Procedure Note Donotuseinterpreter, Image - 02/27/2025 [place] [address] XRay Report Signed Patient: Néstor Chamorro R#: [id number] : 1960cct:[id number] Age/Sex: 64 / MADM Date: 02/26/25 Loc: CONNIE Attending Dr: Maritza CORONADO Ordering Physician: KadenMaritza Date of Service: 02/26/25 Procedure(s): XR foot LT min 3V Accession Number(s): [id number] cc: [facility] CLINICAL HISTORY: NON HEALING WOUND Left foot [...] in OV> 02/27/252014 DD/ 12 TD/TT: 02/27/252012 Cigar Maker: [facility] VENEER JOINTER OFFBEARER IMG XR PROCEDURES Edited Resu lt - Final * Albumin, Random Urine W/Creatinine (10/08/2024 9:55 AM EST) Creatinine, Urine 98.17 mg/dL [facility] Microalbumin Urine 20.0 mg/L [facility] Microalbum Creatinine Ratio Ur 20.3 <30 ug/mg cr [facility] Comment:Albumin/Creatinine R atio Reference Ranges: Normal: < 30 ug/mg creatinine Microalbuminuria: 30 - 300 ug/mg creatinineClinical Albuminuria: > 300 ug/mg creatinine Urine 10/08/2024 9:55 AM EST 10/08/2024 10:32 AM EST [facility] LAB URINE ORDERABLES Final Re sult Performing Organization Address City/State/[facility] Co de Phone Number [facility] [address] [place] [phone] * Lipid Panel, Standard (10/08/2024 9:55 AM EST) Triglycerides 51 <150 mg/dL [facility] Comment:Desirable Triglyceri de: less than 150 mg/dLBorderline High Triglyceride 150-199 mg/dLHigh Triglyceride: 200-499 mg/dLVery High Triglyceride: greater than or equal to 5OO mg/dL Cholesterol 153 <200 mg/dL [facility] Comment:Desirable Cholestero l: less than 200 mg/dLBorderline High Cholesterol: 200-239 mg/dLHigh Cholesterol: greater than 239 mg/dL LDL Cholesterol Calculated 91 <100 mg/dL [facility] Comment:Desirable LDL: less than 100 mg/dLNear Optimal/Above Optimal LDL: 110- 129 mg/dLBorderline High LDL: 130-159 mg/dLHigh LDL: 160-189 mg/dLVery High LDL: greater than or equal to 190 mg/dL HDL Cholesterol 52 >40 mg/dL [facility] Comment:Desirable HDL: great er than 40 mg/dL Note: This HDL assay may give artificially low results in patients with liver disease. Blood Venous blood specimen / Unknown 10/08/2024 9:55 AM EST 10/08/2024 9:55 AM EST [facility] LAB BLOOD ORDERABLES Final Re sult Performing Organization Address City/[facility]/ZIP Co de Phone Number [facility] [address] [place] [phone] * Referral to Optometry (07/08/2024) [facility] OUTPATIENT REFERRAL ORDERABLE S Final Result * HEPATITIS C AB W/REFL TO HCV RNA, QN, PCR (05/24/2022 11:27 AM EDT) HEPATITIS C ANTIBODY NON-REACT ALICIA NON-REACT ALICIA [facility] INDEX 0.06 <1.00 [facility] Comment: HCV antibody was non-reactive. There is no laboratory evidence of HCV infection. In most cases, no further action is required. However, if recent HCV exposure is suspected, a test for HCV RNA (test code 79668) is suggested. For additional information please refer to http://education.Casero/faq/QGC88f4 (This link is being provided for informational/ educational purposes only.) 05/24/2022 11:2 7 AM EDT [facility] HISTORICAL/NON ORDERABLE LABS Final Result Performing Organization Address City/[facility]/ZIP Co de Phone Number [facility] [address] * HIV 1/2 ANTIGEN/ANTIBODY,FOURTH GENERATION W/RFL (05/24/2022 11:27 AM EDT) HIV-1/2 ANTIGEN AND ANTIBODIES, 4TH GENERATION W/ REFLEX NON-REACT [facility] NON-REACT [facility] Comment: HIV-1 antigen and [...] purpose. For additional information please refer to http://education.Casero/faq/FTH547 (This link is being provided for informational/ educational purposes only.) The performance of this assay has not been clinically validated in patients less than 2 years old. 05/24/2022 11:2 7 AM EDT [facility] LAB BLOOD ORDERABLES Final Re sult [facility] [address] * Colonoscopy (12/28/2013) [facility] Colonoscopy performed Historical Provider MD HEALTH MAINTENANCE Final Result from Last 3 Months or Most Recently Relevant to Health Maintenance Insurance [place] [address] [place] [phone] [facility] [place] [address] , [place] [address] , [place] [address] Care Teams Early Childhood Teacher Relationship Specialty Start Date End Date PontiacMaritza VENEER JOINTER OFFBEARER [address] [place] [address] PCP - General Family Medicine 05/24/22 [facility] 10/21/24
--- OUTSIDE RECORDS SUMMARY | 2025-05-28 14:03 | XMS_ITS | Encounter Summary ---
Author Organization [facility] Address [address] [place] [address] Phone Care Team Providers Care Enterprise Mobility Architect Name Role Phone [facility] Primary Care Provider [phone] Encounter Details Date Type Department Care Team (Late Contact Info) Description 07/07/2024 Documentation Only [facility] [address] [place] [address] Diane Morrison [address] [place] [phone] Social History Tobacco Use Types Packs/Day [...] Visit [facility] [address] [place] [address] Mick Badillo MD [address] [place] [address] [place] [address] documented as of this encounter Visit Diagnoses Not on filedocumented in this encounter Care Teams Enterprise Mobility Architect Relationship Specialty Start Date End Date [facility] [address] [place] [address] [phone] PCP - General 06/26/22 documented as of this encounter
--- OUTSIDE RECORDS SUMMARY | 2025-05-28 14:04 | XMS_ITS | Encounter Summary ---
Author Organization [employer] Address [address] [facility] 7t [place] [address] Care Team Providers Care Vascular Technologist Name Role Phone [facility] Primary Care Provider [phone] Reason for Visit * Reason Comments Transition Of Care (Tcm) HDF scheduled Encounter Details Date Type Department Care Team ([facility] st Contact Info) Description 05/25/2025 Patient Outreach [facility] [address] [place] [address] [facility] [address] [place] [address] Transition Of Care (Tcm) (HDF scheduled) Social History Tobacco Use Types Packs/Day Years [...] as of this encounter Miscellaneous Notes * Significant Event - Debora Barnett - 05/25/2025 3:01 PM EDT 05/25/25 1500 Hospital Discharges and Admission for [facility] Type of Visit Hospital Admission Date of Admission/Visit 05/20/25 Date of Discharge 05/21/25 Facility [facility] Diagnosis Ulcer on foot Disposition Discharged Home Follow-Up Actions Follow-Up Needed Provider appointment Follow-Up Outcome Spoke to Patient Initial Contact Date 05/25/25 PITER Cazares placed outbound call to patient for HDF outreach. Patient's name and were confirmed. Patient educated on the importance of follow up with provider following inpatient admission. Patientoffered an HDF appt. Patient is agreeable to an appointment and has been scheduled for 06/07/2025 at1:00 with [employer] Insurance verified prior to scheduling. Patient advised to bring to appointment a photo id and insurance card. Patient also notified that a [facility] pharmacist will be reaching out to them via telephone prior to their scheduled appointment in order to review their medications in preparation for their appointment. Patient provided with education on contacting the [facility] er with any questions or concerns prior to the scheduled appointment. Patient educated on extended clinic hours on Mondays and Wednesdays, and Walk-In Urgent Care Located in [facility] of [facility]. Patient provided with after-hours line for [facility], , which offer night time triage service and option to transfer to [facility] provider if needed. [facility] discharge summary has been scanned into chart for review. documented in this encounter Plan of Treatment Upcoming Encounters Date Type Department Care Team (Late st Contact Info) Description 06/07/2025 1:00 PM EDT Office Visit [facility] [address] [place] [address] Jaymie Nguyen MD [address] [place] [address] 06/22/2025 11:00 AM EDT Office Visit [facility] ADULT DENTAL [address] [place] [address] Yecenia Tilley [address] [facility] [place] [address] 07/02/2025 11:00 AM EDT Office Visit [facility] [address] [facility] [place] [address] Yecenia Tilley [address] [facility] [place] [address] documented as of this encounter Visit Diagnoses Not on filedocumented in this encounter Additional Health Concerns Assessment Noted Time PHQ-9 Depression Total Score: 0 12/26/19 1:02 PM EDT documented as of this encounter Care Teams Vascular Technologist Relationship Specialty Start Date End Date Maritza Alfonso FNP [address] [facility] [place] [address] PCP - General Family Medicine 05/24/22 Chetan MEYERS 10/21/24 documented as of this encounter
--- OUTSIDE RECORDS SUMMARY | 2025-05-28 14:04 | XMS_ITS | Encounter Summary ---
Author Organization [employer] Address [address] [facility] 7t [place] [address] Care Team Providers Care Water Plumber Name Role Phone [facility] Primary Care Provider [phone] Encounter Details Date Type Department Care Team ([facility] st Contact Info) Description 05/28/2025 Orders Only GENERIC EXTERNAL DATA [...] Description 06/07/2025 1:00 PM EDT Office Visit [facility] [address] [place] [address] Jaymie Nguyen MD [address] [place] [address] 06/22/2025 11:00 AM EDT Office Visit [facility] ADULT DENTAL [address] [place] [address] Jarek Yecenia [address] [place] [address] 07/02/2025 11:00 AM EDT Office Visit [facility] ADULT [facility] [address] [place] [address] Jarek, Yecenia [address] [place] [address] documented as of this encounter Procedures Procedure Name Priority Date/Time Associated Diagnosis Comments CBC WITH AUTO DIFFERENTIAL Routine 05/28/2025 12:45 PM EDT SED RATE BY MODIFIED WESTERGREN Routine 05/28/2025 12:45 PM EDT documented in this encounter Results * (ABNORMAL) Sed Rate by Modified Westergren (05/28/2025 12:45 PM EDT) Pathologist [facility] Erythrocyte Sedimentation Rate 33(H) 0 - 15 MM/HR [facility] Comment:Patients with polycy themia and many hemoglobin abnormalitiesmay have depressed sed rates whereas patients with anemiamay have elevated sed rates. 05/28/2025 12:4 5 PM EDT 05/28/2025 12:45 PM EDT us Generic External Data Provider LAB BLOOD ORDERAB LES Final Result [facility] [address] [place] [address] [phone] * (ABNORMAL) CBC auto differential (05/28/2025 12:45 PM EDT) [facility] White Blood Count 4.2(L) 4.8 - 10.8 X10*3/uL [facility] Red Blood Count 5.29 4.60 - 5.80 X10*6/uL [facility] Hemoglobin 14.4 14.0 - 18.0 g/dl [facility] Hematocrit 44.3 42.0 - 52.0 % [facility] Mean Corpuscular Volume 83.7 80.0 - 98.0 fL [facility] Mean Corpuscular Hemoglobin 27.2 27.0 - 33.0 pg [facility] Mean Corpuscular HGB Conc 32.5 31.0 - 36.0 g/dl [facility] Red Cell Distribution Width 13.5 11.0 - 16.0 % [facility] Platelet Count 237 160 - 400 X10*3/uL [facility] Mean Platelet Volume 9.6 9.4 - 12.4 fL [facility] Neutrophils Percent Auto 64.0 45 - 73 % [facility] Imm Gran Pct Auto 0.2 0.0 - 0.4 % [facility] Lymphocytes Percent Auto 23.9 20 - 40 % [facility] Monocytes Percent Auto 9.5 2 - 11 % [facility] Eosinophils Percent Auto 1.9 0 - 4 % [facility] Basophils Percent Auto 0.5 0 - 2 % [facility] NRBC Pct Auto 0.0 0.0 - 0.2 /100WBC [facility] Neutrophils Absolute Auto 2.7 2.0 - 8.3 x10*3/uL [facility] Imm Gran Abs Auto 0.01 0.00 - 0.03 X10*3/uL [facility] Lymphocytes Absolute Auto 1.0(L) 1.2 - 4.9 X10*3/uL [facility] Monocytes Absolute Auto 0.4 0.1 - 1.2 X10*3/uL [facility] Eosinophils Absolute Auto 0.1 0.0 - 0.4 X10*3/uL [facility] Basophils Absolute Auto 0.0 0.0 - 0.2 X10*3/uL [facility] NRBC Abs Auto 0.000 0.0 - 0.012 X10*3/uL [facility] 05/28/2025 12:4 5 PM EDT 05/28/2025 12:45 PM EDT us Generic External Data Provider LAB BLOOD ORDERAB LES Final Result Performing Organization Address City/State/[facility] Co de Phone Number [facility] [address] [place] [phone] documented in this encounter Visit Diagnoses Not on filedocumented in this encounter Additional Health Concerns Assessment Noted Time PHQ-9 Depression Total Score: 0 12/26/19 1:02 PM EDT documented as of this encounter Care Teams Water Plumber Relationship Specialty Start Date End Date Maritza Alfonso FNP [address] [place] [address] PCP - General Family Medicine 05/24/22 [place] OSWALDA 10/21/24 documented as of this encounter
--- OUTSIDE RECORDS SUMMARY | 2025-05-28 14:04 | XMS_ITS | Encounter Summary ---
Author Organization [employer] Address [address] [facility] 7t [place] [address] Care Team Providers Care Sprinkler Repair Technician Name Role Phone [facility] Primary Care Provider [phone] Reason for Visit * Reason Onset Date Comments Hospital Follow-up 05/25/2025 Encounter Details Date Type Department Care Team ([facility] st Contact Info) Description 05/25/2025 Telephone [facility] [address] [place], [place] [phone] [facility] [address] [place] [address] Hospital Follow-up Social History Tobacco Use Types Packs/Day Years [...] * Telephone Encounter - Chuy Garcia - 05/25/2025 1:27 PM EDT Tc from pt requesting a HDF appt. Hospital: [facility] Date of admission: 05/20 Discharge date: 05/21 Diagnosed:foot ulcer *Send message to [place] [facility] Coordinators Contact pt at [phone] (latvian) documented in this encounter Plan of Treatment Upcoming Encounters Date Type Department Care Team (Late st Contact Info) Description 06/07/2025 1:00 PM EDT Office Visit [facility] [address] [place] [address] Jaymie Nguyen MD [address] [place] [address] 06/22/2025 11:00 AM EDT Office Visit [facility] ADULT DENTAL [address] [place], [place] [phone] Yecenia Tilley [address] [facility] [place] [address] 07/02/2025 11:00 AM EDT Office Visit [facility] [address] [facility] [place] [address] Yecenia Tilley [address] [facility] [place] [address] documented as of this encounter Visit Diagnoses Not on filedocumented in this encounter Additional Health Concerns Assessment Noted Time PHQ-9 Depression Total Score: 0 12/26/19 1:02 PM EDT documented as of this encounter Care Teams Sprinkler Repair Technician Relationship Specialty Start Date End Date Maritza Alfonso FNP [address] [place] [address] PCP - General Family Medicine 05/24/22 [place] [facility] 10/21/24 documented as of this encounter
== END 2025-05-28 12:27 | disposition home or self-care (01) ==
LOC: HO.LAB 12:26
PROVIDERS: Absent Provider Registered Nurse; PCP Registered Nurse; Visit Provider Physician Assistant
DX: M86.9 Osteomyelitis, unspecified (principal); M24.9 Joint derangement, unspecified
CPT/HCPCS: 36415; 80053; 85025; 85652; 86140